=== PATIENT | male | born 1930 | race Caucasian/White ===

== ENCOUNTER → 2016-10-15 | Outpatient (CLI) | payer BC ==
[~2016-10-15] MED LIST: ACET-24 PO; CHOL2000 PO; CLX40 PO; FELO5TAB PO; OMEG10007 PO; ONDA8TAB6 PO; OXYSR10 PO; PRLSR20 PO; RXC5 PO; XRL10 PO
[2016-10-15 12:33] LABS: BASO % 0.2 %; BASO ABS # 0.01 K/uL (0-0.2); COMPLETE YES; EOS % 0.7 %; HEMATOCRIT 44.8 % (42-52); LYMPH % 33.4 %; LYMPH ABS # 1.91 K/uL (1.2-3.4); MEAN CELL VOLUME 89.4 fL (80-100); MEAN CORPUSCULAR HEMOGLOBIN 31.1 pg (25-34); MEAN CORPUSCULAR HGB CONC 34.8 g/dl (32-36); MEAN PLATELET VOLUME 9.8 fL (7.4-10.4); MONO % 10.1 %; NEUT % 55.6 %; PLATELET COUNT 237 K/uL (130-400); RED BLOOD COUNT 5.01 M/uL (4.7-6.1); WHITE BLOOD COUNT 5.72 K/uL (4.8-10.8)
[2016-10-15 12:52] LABS: ALT/SGPT 36 U/L (12-78); BLOOD UREA NITROGEN 14 mg/dl (7-18); BUN/CREATININE RATIO 10.9 (10-20); CALCIUM 8.9 mg/dl (8.5-10.1); CARBON DIOXIDE 29 mmol/L (21-32); CHLORIDE 102 mmol/L (98-107); CHOLESTEROL 216 mg/dl (0-200); GLUCOSE 123 mg/dl (70-99); POTASSIUM 4.6 mmol/L (3.5-5.1); SODIUM 139 mmol/L (136-145)
[2016-10-15 12:55] LABS: ALB/GLOB RATIO 1.1 (0.9-2); ALKALINE PHOSPHATASE 84 U/L (45-117); AST/SGOT 28 U/L (15-37); CHOLESTEROL/HDL RATIO 3.9; HDL CHOLESTEROL 56 mg/dl; LDL CHOLESTEROL CALCULATED 129 mg/dl; TRIGLYCERIDES 153 mg/dl (0-150); VERY LOW DENSITY LIPOPROT CALC 31 mg/dl
--- NOTE | 2016-10-19 12:24 | CODING QUERY MEDICAL NECESSITY ---
SUPPORTING DIAGNOSIS NEEDED A supporting diagnosis is required for the test/procedure performed on this patient in order for us to be reimbursed by the patient's insurance. Please provide a supporting diagnosis for the following test/procedure listed below next to the test name along with your signature. *If there is no additional diagnosis for this patient that would support the following test/procedure please document that below next to the test/procedure. Test(s)/Procedure(s) that require a supporting diagnosis: DOS 10/15 * Vitamin D DIAGNOSIS: Provider Signature: Date: Thank you Nayana Polo Health Information Management Once completed, please kindly fax back to [phone] For questions please call [phone]
== END | disposition home or self-care (01) ==
LOC: C.LABPVFM 08:24
PROVIDERS: ATTEND Family Medicine
DX: Z00.00 Encounter for general adult medical examination without abnormal findings (principal); I10 Essential (primary) hypertension; E55.9 Vitamin D deficiency, unspecified

== ENCOUNTER → 2017-03-25 | Outpatient (CLI) | payer BC | END | disposition home or self-care (01) | LOC: C.LABPVFM 17:41 | PROVIDERS: ATTEND Nurse Practitioner | DX: N39.0 Urinary tract infection, site not specified (principal) ==

== ENCOUNTER → 2017-04-06 | Outpatient (CLI) | payer BC | END | disposition home or self-care (01) | LOC: C.LABSPEC 17:06 | PROVIDERS: ATTEND Urology | DX: N39.0 Urinary tract infection, site not specified (principal) ==

== ENCOUNTER 2017-05-12 09:29 | Inpatient (IN) | payer BC, OTHER ==
[2017-04-20 15:02] VITALS: BMI 28.0
--- NOTE | 2017-04-20 15:31 | PAT Medication Instructions ---
Service Date Apr 20, 2017. Current Home Medication List Cholecalciferol (Vitamin D3), 1 CAP PO QAM Citalopram (Citalopram Hydrobromide), 40 MG PO QAM Felodipine (Plendil), 5 MG PO QAM Fish Oil ([place]-3), 2 CAP PO QAM Omeprazole (Prilosec), 20 MG PO QAM Medication Instructions For Your Scheduled Surgery - Hold the following medications 2 weeks prior to surgery: Fish Oil ([place]-3), 2 CAP PO QAM - Hold the following medications the morning of surgery: Cholecalciferol (Vitamin D3), 1 CAP PO QAM - Take the following medications the morning of surgery with a sip of water: Omeprazole (Prilosec), 20 MG PO QAM Citalopram (Citalopram Hydrobromide), 40 MG PO QAM Felodipine (Plendil), 5 MG PO QAM If you have any questions please call us at [phone] or [phone] or [phone]
--- NOTE | 2017-04-20 16:24 | DIAGNOSTIC IMAGING REPORT ---
CHEST PREADMISSION(PA/LAT) CLINICAL HISTORY: Preoperative chest COMPARISON STUDY: 02/28/2015 FINDINGS: There is stable elevation/eventration of the anterior aspect of the right hemidiaphragm. The heart is normal in size. There is no failure. There is no focal pulmonary consolidation. There are no pleural effusions.[ IMPRESSION: Stable elevation/eventration of the right hemidiaphragm. No acute findings. Electronically signed by: Davon Bowens M.D. 04/20/2017 4:23 PM Dictated Date/Time: 04/20/2017 4:22 PM
[2017-04-20 16:44] LABS: BLOOD UREA NITROGEN 16 mg/dl (7-18); BUN/CREATININE RATIO 11.6 (10-20); C-REACTIVE PROTEIN < 0.29 mg/dl (0-0.29); CALCIUM 8.7 mg/dl (8.5-10.1); CARBON DIOXIDE 27 mmol/L (21-32); CHLORIDE 105 mmol/L (98-107); GLUCOSE 130 mg/dl (70-99); POTASSIUM 4.2 mmol/L (3.5-5.1); SODIUM 140 mmol/L (136-145)
[2017-04-20 16:57] LABS: BASO % 0.3 %; BASO ABS # 0.01 K/uL (0-0.2); COMPLETE YES; EOS % 0.8 %; HEMATOCRIT 42.3 % (42-52); LYMPH % 34.2 %; LYMPH ABS # 1.31 K/uL (1.2-3.4); MEAN CELL VOLUME 89.8 fL (80-100); MEAN CORPUSCULAR HEMOGLOBIN 30.6 pg (25-34); MEAN PLATELET VOLUME 8.8 fL (7.4-10.4); MONO % 8.6 %; NEUT % 56.1 %; PLATELET COUNT 213 K/uL (130-400); RED BLOOD COUNT 4.71 M/uL (4.7-6.1); WHITE BLOOD COUNT 3.83 K/uL (4.8-10.8)
[2017-04-20 17:03] LABS: URINE APPEARANCE CLEAR (CLEAR); URINE BILIRUBIN NEG (NEG); URINE COLOR YELLOW; URINE NITRITE NEG (NEG); URINE SPECIFIC GRAVITY 1.011 (1.000-1.030); UROBILINOGEN NEG (NEG); ZZUR CULT IF INDIC CLEAN CATCH NO
[2017-04-20 17:04] LABS: MANUAL MICROSCOPIC REQUIRED? NO; REVIEW REQ? NO
[2017-04-20 17:05] LABS: PROTHROMBIN TIME (PATIENT) 10.3 SECONDS (9.0-12.0)
[2017-04-20 18:11] LABS: ESTIMATED AVERAGE GLUCOSE 137 mg/dl; HA1C FLAG Normal (Normal)
[2017-05-07 12:17] VITALS: BMI 28.0
--- NOTE | 2017-05-11 20:38 | HISTORY & PHYSICAL EXAMINATION ---
DATE OF ADMISSION: 05/12/2017 CHIEF COMPLAINT: Chronic left knee pain. HISTORY OF PRESENT ILLNESS: This is an 87-year-old male patient of Dr. Fuentes'darian complaining of chronic left knee pain status post a left total knee arthroplasty. The patient has failed conservative treatments and continues to have chronic knee pain. He has been diagnosed with loosening of the left knee components in the recent past and wishes to proceed with a left total knee arthroplasty revision. PAST MEDICAL HISTORY: Hypertension, osteoarthritis, neck problems, obesity and dental issues. SOCIAL HISTORY: Nonsmoker and nondrinker. PAST SURGICAL HISTORY: Left knee replacement, ankle surgery, gallbladder, appendix and hemorrhage. ALLERGIES: No known drug allergies. REVIEW OF SYSTEMS: The patient complains of chronic left knee pain. Otherwise denies any shortness of breath, chest pain, nausea, vomiting or any other joint complaints. FAMILY HISTORY: Noncontributory. MEDICATIONS: Include fish oil 1000 mg two tablets daily, vitamin D3 daily, omeprazole 20 mg daily, felodipine 5 mg daily and citalopram 40 mg daily. ALLERGIES: VANCOMYCIN. PHYSICAL EXAMINATION: GENERAL: Well-developed and well-nourished 87-year-old male, in no acute distress. He is alert and oriented x3 and pleasant. HEENT: Normocephalic and atraumatic. Extraocular motions are intact. Pupils are equal and reactive to light. HEART: Regular rate and rhythm, no murmurs appreciated. LUNGS: Clear. ABDOMEN: Soft and nontender, bowel sounds present. EXTREMITIES: Left knee reveals pain with passive range of motion. He is stable. He has 5/5 strength. NEUROLOGIC: Neurovascularly, he is intact in his left lower extremity. DIAGNOSES: Left knee chronic pain status post total knee arthroplasty with a diagnosis of loosening of total knee components. He also has a history of hypertension, osteoarthritis, neck problems, obesity and dental issues. PLAN: The patient was advised of his diagnoses. Indications, risks, benefits and postoperative course have all been reviewed. The patient wishes to proceed with a left total knee revision, removal and revision of all components. Necessary consent forms, preoperative testing and clearances will be obtained. CARISSA
[2017-05-12] VITALS (7 sets, daily range): BP systolic 105–151; BP diastolic 62–87; PULSE 81–95; TEMP 36.4–36.6; O2SAT 94–97; Ht 177.8 cm; Wt 89.5 kg
[~2017-05-12] VITALS: Ht 177.8 cm; Wt 89.5 kg
[2017-05-12] MEDS: TRANEXAMIC ACID INJ 1,000 MG in SODIUM CHLORIDE 0.9% 100ML 100 ML IV SCH ×2 (06:30→10:20)
[~2017-05-12 09:29] MED LIST changes: -ACET-24 PO; +ACETAMINOPHEN 500 MG TAB PO SCH; +ATROPINE SULFATE 0.1 MG/ML 5ML SYR IV PRN; +BUPIVACAINE 0.25% 30 ML VIAL ONE; +BUPIVACAINE 0.5 % 5 MG/1 ML PF 10ML VIAL ONE; +CEFAZOLIN 2000 MG/60 ML D5W 60 ML IV SCH; +CeleBREX 200 MG CAP PO SCH; +DEXAMETHASONE 4 MG TAB PO SCH; +EpHEDrine SULFATE INJ 50 MG/ML AMP IV PRN; +FAMOTIDINE 20 MG TAB PO SCH; +GABAPENTIN 300 MG CAP PO SCH; +LACTATED RINGER'S 1000ML 1,000 ML IV SCH; +LACTATED RINGER'S 1000ML 500 ML IV ONE; +LACTATED RINGER'S 1000ML IV SCH; +LACTATED RINGER'S 500 ML IV SCH; -ONDA8TAB6 PO; +ONDANSETRON INJ 2 MG/ML 2 ML VIAL IV PRN; +OXYCODONE HCL 10 MG TABCR (OXYCONTIN) PO SCH; -OXYSR10 PO; -RXC5 PO; +TRANEXAMIC ACID INJ 1,000 MG in SODIUM CHLORIDE 0.9% 100ML 100 ML IV SCH; -XRL10 PO
[2017-05-12] MEDS: CeleBREX 200 MG CAP PO SCH ×2 (10:15→10:37)
[2017-05-12] MEDS ORDERED: MIDAZOLAM HCL 1 MG/ML 2ML VIAL ONE (10:50)
[2017-05-12] MEDS ORDERED: FENTANYL CITRATE INJ 50 MCG/1 ML 2 ML VIAL ONE ×2 (10:50→18:51)
--- NOTE | 2017-05-12 12:02 | History & Physical Bridge Note ---
H&P Re-Evaluation Bridge Note: I have examined the patient, reviewed the History & Physical and in the interval since the performance of the History & Physical I have noted the following changes of clinical significance: No changes noted
[2017-05-12] MEDS ORDERED: BACITRACIN 50000 UNIT VIAL ONE ×2 (12:49→13:37)
[2017-05-12] MEDS ORDERED: POVIDONE-IODINE OP SOLN 30 ML BTL ONE (12:49)
--- NOTE | 2017-05-12 16:32 | [facility] Post Operative Brief Note ---
Immediate Operative Summary Operative Date May 12, 2017. Pre-Operative Diagnosis Left knee chronic pain status post total knee arthroplasty with diagnosis of recurrent fracture polyethylene tibial component and knee instability Post-Operative Diagnosis same Procedure(s) Performed revision total knee replacement all 3 components,synovectomy Surgeon Dr. Luis Fuentes Aerospace Manager Surgeon(s) WILD Moore Estimated Blood Loss 100cc Findings osteolysis around femoral and tibial component no loosening of any components chronic synovitis and no evidence of infection,polyethylene post fracture posterior stabilized knee Specimens Frozen section #2 sent at 1505 Left femoral bone implant / number WBC's per high powered field,explanted components,synovium. Drains 2 hemovac Anesthesia spinal sedation regional block Complication(s) None Disposition Recovery Room / PACU
[2017-05-12] MEDS ORDERED: TOBRAMYCIN SULF 1.2 GM VIAL (POWDER) ONE (16:52)
[2017-05-12] MEDS ORDERED: LIDOCAINE HCL 2% 2 ML VIAL (20MG/ML) ONE (18:38)
[2017-05-12] MEDS ORDERED: CEFAZOLIN SOD 1 GM VIAL ONE (18:38)
[2017-05-12] MEDS ORDERED: PROPOFOL IV EMULSION 10 MG/ML 20 ML VIAL IV ONE (18:38)
[2017-05-12] MEDS ORDERED: BISACODYL 10 MG SUPP PR PRN (18:45)
[2017-05-12] MEDS ORDERED: MAGNESIUM HYDROXIDE SUSP 30 ML UDC PO PRN (18:45)
[2017-05-12] MEDS ORDERED: TRAMADOL HCL 50 MG TAB PO PRN (18:45)
[2017-05-12] MEDS ORDERED: SOD PHOSPHATE/SOD BIPHOSPHATE ENEMA 132 ML BTL PR PRN (18:45)
[2017-05-12] MEDS ORDERED: ZOLPIDEM TARTRATE 5 MG TAB PO PRN (18:45)
[2017-05-12] MEDS ORDERED: MoRPHine SULFATE 2 MG/ML CARP IV PRN (18:45)
[2017-05-12] MEDS ORDERED: ONDANSETRON INJ 2 MG/ML 2 ML VIAL IV PRN ×2 (18:45→19:00)
[2017-05-12] MEDS ORDERED: FENTANYL CITRATE INJ 50 MCG/1 ML 2 ML VIAL IV PRN (19:00)
[2017-05-12] MEDS ORDERED: HYDROmorphone INJ 1 MG/ML SYR IV PRN (19:00)
[2017-05-12] MEDS ORDERED: EpHEDrine SULFATE INJ 50 MG/ML AMP IV PRN (19:00)
[2017-05-12] MEDS ORDERED: ATROPINE SULFATE 0.1 MG/ML 5ML SYR IV PRN (19:00)
--- NOTE | 2017-05-12 19:26 | Anesthesiology Progress Note ---
Anesthesia Post Op Note Date & Time May 12, 2017 at 19:26 Vital Signs Pain Intensity: 4 Vital Signs Past 12 Hours Date Time Temp Pulse Resp B/P (MAP) Pulse Ox O2 Delivery O2 Flow Rate FiO2 05/12/17 19:15 93 14 137/90 95 Nasal Cannula 2 05/12/17 19:05 89 15 135/80 95 Nasal Cannula 2 05/12/17 18:55 92 19 128/92 97 Oxymask 4 05/12/17 18:45 91 19 137/88 98 Oxymask 8 05/12/17 18:39 36.7 94 16 114/88 98 Oxymask 10 05/12/17 09:59 36.5 81 20 151/87 96 Room Air Notes Mental Status: alert / awake / arousable, participated in evaluation Pt Amnestic to Procedure: Yes Nausea / Vomiting: adequately controlled Pain: adequately controlled Airway Patency, RR, SpO2: stable & adequate BP & HR: stable & adequate Hydration State: stable & adequate Neuraxial Anesthesia: was administered, sensory block is resolving Anesthetic Complications: no major complications apparent
--- NOTE | 2017-05-12 19:35 | DIAGNOSTIC IMAGING REPORT ---
LEFT KNEE 1 OR 2 VIEWS ROUTINE CLINICAL HISTORY: AP/LATERAL IN PACU LEFT KNEE postoperative evaluation COMPARISON: None. DISCUSSION: Total left knee arthroplasty. Longstem prosthetics are utilized. Multiple soft tissue antibiotic these are present. Postoperative surgical drains are in position. IMPRESSION: Postoperative changes as noted. Anatomic alignment. The above report was generated using voice recognition software. It may contain grammatical, syntax or spelling errors. Electronically signed by: Mansoor Díaz M.D. 05/12/2017 7:34 PM Dictated Date/Time: 05/12/2017 7:33 PM
[2017-05-12] MEDS ORDERED: MoRPHine SULFATE 4 MG/ML 1 ML CARP\\VIAL IV PRN (20:15)
[2017-05-12] MEDS: OXYCODONE HCL IR 5 MG TAB (IMMEDIATE RELEASE) PO PRN ×2 (20:17→23:57)
[2017-05-12] MEDS: D5W AND 1/2NSS + 20MEQ KCL 1,000 ML IV SCH (20:19)
[2017-05-12] MEDS: OXYCODONE HCL 10 MG TABCR (OXYCONTIN) PO SCH (22:02)
[2017-05-12] MEDS: DOCUSATE SODIUM 100 MG CAP PO SCH (22:02)
[2017-05-12] MEDS: ACETAMINOPHEN 500 MG TAB PO SCH (23:54)
[2017-05-13] VITALS (7 sets, daily range): BP systolic 112–154; BP diastolic 67–84; PULSE 80–94; TEMP 36.3–36.8; O2SAT 91–96
[2017-05-13] MEDS: CEFAZOLIN IV 2,000 MG in DEXTROSE 5% 50ML 50 ML IV SCH ×2 (01:33→10:29)
--- NOTE | 2017-05-13 02:06 | OPERATIVE REPORT ---
DATE OF OPERATION: 05/12/2017 INDICATION FOR PROCEDURE: The patient is an 87-year-old male, well known to my practice. I did bilateral Encore knee replacements many years ago. He has had problems with polyethylene fractures, fracturing the polyethylene posts of both of his knees. He had revision of polyethylene on the right knee once and the left knee twice. The left polyethylene revision to the fractured polyethylene component was only 2 years status post the left component. His workup demonstrates no loosening of any of his components. There are no signs of infection. His CBC, sed rate, CRP are all normal. He has instability of his knee with posterior drawer. This is with a fractured polyethylene post again. He does have some synovitis, likely due to osteolysis. There is no loosening of any of the components, notably. The patient now has instability of his knee and some pain in his knee. He had major mechanical symptoms, which have settled down at this time. The patient is considering his options of no treatment versus revision knee replacement and wanted to pursue the revision knee replacement at this time, out of fear, in part, that he may put undue stress on his opposite knee and cause failure there or have recurrent pain and mechanical symptoms in his left knee. 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 Chronic knee synovitis, aseptic. PROCEDURE: Left revision total knee arthroplasty with revision of all three components, patella, tibia and femoral with synovectomy and debridement. SURGEON: Dr. Fuentes. CARRY OUT CLERK AND SHELF STOCKER: WILD Moore. ANESTHESIA: Spinal sedation and regional block. OPERATIVE PROCEDURE: The patient was taken to the operating room and anesthetized under regional block, spinal anesthetic sedation. Pneumatic tourniquet was placed on left upper thigh, his left lower extremity was prepped and draped with ChloraPrep in the usual sterile fashion. Exam demonstrated he had an unstable knee with posterior drawer with a sag sign, subluxation of the tibia and femur, no end-points consistent with a fractured polyethylene post, also medial and lateral instability due to lack of polyethylene post. After the left lower extremity was prepped and draped, it was elevated, exsanguinated with Esmarch bandage, pneumatic tourniquet was raised to 300 mmHg. Anterior incision was made across the left knee. There was old scar. Skin was incised sharply. Subcutaneous flaps were elevated. Incision was made through the medial retinaculum, extended up in the mid-third of the quadriceps tendon. We got cultures at that time. The incision was carried down to the medial tibial tubercle. Intraarticular findings demonstrated chronic synovitis, polyethylene plastic debris noted, the polyethylene post was fractured and fragmented, there was some polyethylene wear of the tibial component. There was no loosening of the femoral or the tibial components. There were some areas of surrounding osteolysis identified around the edges of the implants. First, I went ahead and did a total electrocautery synovectomy. We excised the synovium in the gutters and suprapatellar pouch. Then, I excised the scarred infrapatellar fat pad. I did some releases around the proximal tibial plateau to expose the tibial component better. Then we went ahead and used a screwdriver to unscrew the screw and the polyethylene with a hex head screwdriver. Then, we went ahead and removed the polyethylene with a curved osteotome. We did some more debridement of the synovium in the posterior capsule area. Then, first attention was taken to testing the other components for stability, they were all stable. At this time, to the well-fixed components to remove them, I had to use Ultra-Drive ultrasound. I did this using that to melt the cement. We used a flat blade. We worked around the components, superior flange, lateral posterior condyle area, both sides of the knee, until we were able to tap the femoral component loose. Once it was loose, we did take some frozen sections from the femur implant interface. These all came back with no significant information. We did notice that there were some bits of osteolysis underlying the femoral component with the various cystic areas. Most of bone loss was in the flexion surface of the medial femoral condyle, but there were various areas of osteolytic cysts under the femur. These were all debrided out. All the excess old cement was removed. Then, attention was taken to removing the tibial component. The tibia was extremely well fixed. It was difficult to remove. We used the Ultra-Drive to melt the cement of the component thoroughly , but the component was not easily removed. We did end up using the total joint extraction device. We had to use first some stacked osteotomes to loosen up the tibia prior to being able to remove it more effectively with the Ariella total joint extraction device. Eventually, that was all removed and then we used cement removal tools to remove the cement from the metaphysis of the tibia. Then, attention was taken to preparation of the femur. For revision, I used the [employer] Legion revision total knee arthroplasty system. First, we reamed femur and tibia. The femur was reamed up to a 16 and the tibia to a 13 diameter, which had good fit and fill. Then we assessed the femur and felt it was best sized to be a 6 femur component. I felt a 4 offset gave the best alignment. First, we did a cleanup cut of the femur distally and there was not any significant bone loss there. So, we did not feel there was any augments necessary there. After deciding the position of the 6 component with the +4 offset at the 6 o'clock position, which gave the best coverage, we went ahead and reamed for the femoral component with appropriate reamers and then placed our trial together and used a 10 mm offset on the medial side, but the lateral side, there was no significant posterior bone loss and that would be the primary component without offset on the lateral side. At this point, the tourniquet time was extending over 2 hours. So, we went ahead and placed a trial plastic component over the tibia, kept the femoral trial in place, extended the knee, packed the knee with sponges and let the tourniquet down for 15-20 minutes to let leg revascularize. During that time, we went ahead and cauterized some bleeders that we identified. After appropriate time down for revascularization, the leg was once again exsanguinated with Esmarch bandage. Pneumatic tourniquet was raised back to 300 mmHg. Then, attention was taken to the tibia. Then, we used the intramedullary tibial guide to make the proximal tibial cut perpendicular to the long axis of the tibia and then sized the tibia for a 6 tibial component. We used a +2 offset on the tibial side and drilled the appropriate proximal tibia to fashion for the final tibial component. When the trial was in position, we did use the punch for the stem fins and pinned the trial in position. We lined up the tibial trial in line with the tibial tubercle. At this time, we did a trial reduction and I felt that the size 15 constrained insert gave the best ligamentous balance through full range of motion. We did go ahead and revise the patella, first using an oscillating saw to remove the previous polyethylene component, tried to do as [id number] of bone resection as possible to preserve the patella bone. Then, the patella was sized for a 38 component. We drilled the holes for the 38 and curetted out the old plastic pegs and old cement. Then, we did a trial reduction and the knee was taken through a range of motion, the patella tracked centrally. At this time, the trial components were all removed. The knee was then copiously irrigated with pulsatile lavage, antibiotic solution and bacitracin. The final components were assembled. The femoral component was a 16 x 160 mm stem, assembled to a 4 offset at 6 o'clock position, 6 Oxinium posterior stabilized Legion femoral component with a posterior offset on the medial side of 10 mm. Final component on the tibia was the 6 tibial component with a 15 mm x 160 mm stem with 2+ offset at 12:30 position. The tibia was cemented in first with the stem press fit and the metaphysis and baseplate cemented. A similar cementing of the femoral component was performed secondarily and the patella was cemented in a similar fashion. We used Palacos G cement. We placed the trial in place first, put the knee in full extension until the cement hardened and then went ahead with the final tibial 15 mm constrained component, which was impacted into position. The knee was reduced, we assessed range of motion, which was satisfactory. The patella tracked centrally. The stability was good. The patient had full range of motion. The Betadine soak was then used. Then we irrigated out the joint copiously. We placed 2 drains out laterally. These were connected to a Hemovac. We had previously made tobramycin antibiotic beads and placed them into the joint. Then, we closed the fascia of the quadriceps tendon and medial retinaculum with interrupted [id number] #1 Vicryl sutures. The knee was taken through full range of motion and appeared secure. Then, the subcutaneous tissues had more antibiotic beads placed prior to closing them with interrupted 2-0 Vicryl sutures and the skin was closed with raudel and sterile dressings were applied. The tourniquet was again let down. The patient had normal internal circulation. The patient had approximately 100 mL of blood loss during the procedure and the patient tolerated the procedure well. WILD Moore, was my assistant professor of geography and he functioned as assistant professor of geography with leg positioning, soft tissue retraction, instrument management and assisted in the closure and will participate in the postoperative care of the patient. I attest to the content of the Intraoperative Record and any orders documented therein. Any exceptions are noted below. CARISSA
[2017-05-13] MEDS: D5W AND 1/2NSS + 20MEQ KCL 1,000 ML IV SCH ×2 (05:51→16:08)
[2017-05-13 06:18] LABS: HEMATOCRIT 36.6 % (42-52); MEAN CELL VOLUME 90.8 fL (80-100); MEAN CORPUSCULAR HEMOGLOBIN 31.3 pg (25-34); MEAN CORPUSCULAR HGB CONC 34.4 g/dl (32-36); MEAN PLATELET VOLUME 8.7 fL (7.4-10.4); PLATELET COUNT 184 K/uL (130-400); RED BLOOD COUNT 4.03 M/uL (4.7-6.1); WHITE BLOOD COUNT 10.81 K/uL (4.8-10.8)
[2017-05-13 06:49] LABS: BUN/CREATININE RATIO 13.2 (10-20); CALCIUM 8.4 mg/dl (8.5-10.1); CREATININE 1.6 mg/dl (0.60-1.40); POTASSIUM 4.8 mmol/L (3.5-5.1)
[2017-05-13] MEDS: ACETAMINOPHEN 500 MG TAB PO SCH ×3 (08:13→23:08)
--- NOTE | 2017-05-13 08:19 | Orthopedic Progress Note ---
Orthopedic Progress Note Date of Service May 13, 2017. Subjective Post OP Day: 1 Reports: feeling well, pain controlled w PO medications, Denies: complaints, chest pain, SOB, nausea / vomiting, light headedness, calf pain Additional Notes: Intra op gram stain: few WBC's, NO organisms Culture pending Objective calves soft nontender, N/V intact, capillary refill less than 2 sec., dressing C /D/I, A&O x3, toes mobile Date Time Temp Pulse Resp B/P (MAP) Pulse Ox O2 Delivery O2 Flow Rate FiO2 05/13/17 08:14 36.5 80 20 122/84 (97) 96 Room Air 05/13/17 03:23 36.3 84 16 119/78 (92) 92 Nasal Cannula 2.0 05/13/17 00:00 Nasal Cannula 2.0 05/12/17 22:42 36.4 88 18 105/62 (76) 94 Nasal Cannula 2.0 05/12/17 21:50 36.5 91 17 114/71 (85) 96 Nasal Cannula 2.0 05/12/17 20:42 36.6 93 18 124/79 (94) 96 Nasal Cannula 2.0 05/12/17 20:32 97 Nasal Cannula 2.0 05/12/17 20:23 36.5 88 16 124/84 (97) 97 Nasal Cannula 2.0 05/12/17 20:05 2.0 05/12/17 19:45 36.5 95 16 119/64 (82) 95 Nasal Cannula 2.0 05/12/17 19:35 90 14 116/77 94 Nasal Cannula 2 05/12/17 19:25 36.6 89 16 114/79 95 Nasal Cannula 2 05/12/17 19:15 93 14 137/90 95 Nasal Cannula 2 05/12/17 19:05 89 15 135/80 95 Nasal Cannula 2 05/12/17 18:55 92 19 128/92 97 Oxymask 4 05/12/17 18:45 91 19 137/88 98 Oxymask 8 05/12/17 18:39 36.7 94 16 114/88 98 Oxymask 10 05/12/17 09:59 36.5 81 20 151/87 96 Room Air Laboratory Results 24 Hours: Test 05/13/17 06:07 Hematocrit 36.6 % Hemoglobin 12.6 g/dL Assessment & Plan Assessment: POD #1, Left TKA revision all components, synovectomy and debridement Plan: PT/ OT DVT proph- Xarelto D/C plans- HOme As per medicine Inhouse Planning Pain Management: Oxycontin, Ultram, Morphine, PO Tylenol, Oxy IR DVT Prophylaxis: TEDs, SCDs, Xarelto Discharge Planning Discharge Planning: home with oppt Pain Management: Oxycontin, PO Tylenol, Oxy IR DVT Prophylaxis: TEDs Xarelto Therapy: Physical Therapy, Occupational Therapy
--- NOTE | 2017-05-13 08:31 | Anesthesiology Progress Note ---
Anesthesia Post Op Note Date & Time May 13, 2017 at 08:30 Vital Signs Pain Intensity: 2 Vital Signs Past 12 Hours Date Time Temp Pulse Resp B/P (MAP) Pulse Ox O2 Delivery O2 Flow Rate FiO2 05/13/17 08:14 36.5 80 20 122/84 (97) 96 Room Air 05/13/17 03:23 36.3 84 16 119/78 (92) 92 Nasal Cannula 2.0 05/13/17 00:00 Nasal Cannula 2.0 05/12/17 22:42 36.4 88 18 105/62 (76) 94 Nasal Cannula 2.0 05/12/17 21:50 36.5 91 17 114/71 (85) 96 Nasal Cannula 2.0 05/12/17 20:42 36.6 93 18 124/79 (94) 96 Nasal Cannula 2.0 05/12/17 20:32 97 Nasal Cannula 2.0 Notes Mental Status: alert / awake / arousable Pt Amnestic to Procedure: Yes Nausea / Vomiting: adequately controlled Pain: adequately controlled Airway Patency, RR, SpO2: stable & adequate BP & HR: stable & adequate Hydration State: stable & adequate Neuraxial Anesthesia: sensory block resolved has not voided
[2017-05-13] MEDS: CITALOPRAM 40 MG TAB PO SCH (09:14)
[2017-05-13] MEDS: DOCUSATE SODIUM 100 MG CAP PO SCH ×2 (09:14→20:49)
[2017-05-13] MEDS: FELODIPINE 5 MG TABCR PO SCH (09:15)
[2017-05-13] MEDS: MULTIVITAMIN TAB PO SCH (09:15)
[2017-05-13] MEDS: CHOLECALCIFEROL 1000 INTER.UNIT TAB PO SCH (09:15)
[2017-05-13] MEDS: PANTOprazole SOD 40 MG TAB PO SCH (09:15)
[2017-05-13] MEDS: OXYCODONE HCL 10 MG TABCR (OXYCONTIN) PO SCH ×2 (09:17→20:50)
--- NOTE | 2017-05-13 11:00 | Medical Consult ---
Consultation Date of Consultation: May 13, 2017. Attending Physician: Luis Fuentes M.D. Reason for Consultation: Medical management History of Present Illness Patient is an 87 y/o male, with PMHx of osteoarthritis, HTN, anxiety, and GERD, s/p L TKA revision all components, synovectomy and debridement on 05/[address] Fuentes. Patient is feeling well postop. Pain is well controlled. Worked with PT this AM, without significant difficulty. +flatus, no BM postop- last BM . Eating and drinking OK. Patient denies any fever, chills, sweats, lightheadedness, dizziness, vision changes, CP, palpitations, edema, SOB, wheezing, cough, abdominal pain, nausea, vomiting, diarrhea, urinary symptoms, melena, numbness/tingling, weakness, anxiety/depression, active bleeding, or new skin discoloration/changes. Past Medical/Surgical History PAST MEDICAL HISTORY: Hypertension osteoarthritis neck problems obesity dental issues GERD anxiety PAST SURGICAL HISTORY: Left knee replacement ankle surgery cholecystectomy appendectomy PUD hemorrhage Social History Smoking Status: Never Smoker Alcohol Use: none Marital Status: Housing Status: lives with significant other Occupation Status: retired Allergies Coded Allergies: Vancomycin (Verified Allergy, Intermediate, LOWER EXTREMITY SWELLING, FEVER, 05/12/17) Home Medications Reported Home Medications Medications Dose Route/Sig Max Daily Dose Days Date Category [place]-3 (Fish Oil) 1 Ea Cap 2 Cap PO QAM 04/20/17 Reported Vitamin D3 (Cholecalciferol) 2,000 Unit Cap 1 Cap PO QAM 90 04/20/17 Reported Citalopram Hydrobromide (Citalopram) 40 Mg Tab 40 Mg PO QAM 01/05/14 Reported Plendil (Felodipine) 5 Mg Tabcr 5 Mg PO QAM 09/02/10 Reported Prilosec (Omeprazole) 20 Mg Capcr 20 Mg PO QAM 12/31/08 Reported Current Inpatient Medications Current Inpatient Medications Medications (Trade) Dose Ordered Sig/Purnima Route Start Time Stop Time Status Last Admin Dose Admin Citalopram Hydrobromide (celeXA TAB) 40 mg QAM PO 05/13/17 09:00 06/12/17 08:59 Felodipine (Plendil Tabcr) 5 mg QAM PO 05/13/17 09:00 06/12/17 08:59 Cholecalciferol (Vitamin D Tab) 2,000 inter.unit QAM PO 05/13/17 09:00 06/12/17 08:59 Potassium Chloride/Dextrose/ Sod Cl 1,000 ml @ 100 mls/hr Q10H IV 05/12/17 20:15 05/13/17 20:14 05/13/17 05:51 100 MLS/HR Cefazolin Sodium 2000 mg/Dextrose 60 ml @ 100 mls/hr Q8H IV 05/13/17 02:00 05/13/17 10:35 05/13/17 01:33 100 MLS/HR Oxycodone HCl (Roxicodone Immediate Rel Tab) 1 TABLET FOR PAIN RATING... Q4H PRN PO 05/12/17 18:45 05/26/17 18:44 05/12/17 23:57 10 MG Oxycodone HCl (Oxycontin Tab) 10 mg Q12 PO 05/12/17 21:00 05/26/17 20:59 05/12/17 22:02 10 MG Morphine Sulfate (MoRPHine SULFATE INJ) 2 mg Q2H PRN IV 05/12/17 18:45 05/26/17 18:44 Acetaminophen (Tylenol Tab) 1,000 mg Q8H PO 05/13/17 00:00 06/12/17 00:00 05/13/17 08:13 1,000 MG Magnesium Hydroxide (Milk Of Magnesia Susp) 30 ml Q6H PRN PO 05/12/17 18:45 06/11/17 18:44 Bisacodyl (Dulcolax Supp) 10 mg DAILY PRN VT 05/12/17 18:45 06/11/17 18:44 Sodium Biphosphate/ Sodium Phosphate (Fleet Enema) 132 ml DAILY PRN VT 05/12/17 18:45 06/11/17 18:44 Docusate Sodium (coLACE CAP) 100 mg BID PO 05/12/17 21:00 06/11/17 20:59 05/12/17 22:02 100 MG Diphenhydramine HCl (Benadryl Cap) 25 mg Q8H PRN PO 05/12/17 18:45 06/11/17 18:44 Zolpidem Tartrate (Ambien Tab) 5 mg HSZ PRN PO 05/12/17 18:45 06/11/17 18:44 Multivitamins (Multivitamin Tab) 1 tab QAM PO 05/13/17 09:00 06/12/17 08:59 Ondansetron HCl (Zofran Inj) 4 mg Q6H PRN IV 05/12/17 18:45 06/11/17 18:44 Pantoprazole Sodium (Protonix Tab) 40 mg QAM PO 05/13/17 09:00 06/12/17 08:59 Tramadol HCl (Ultram Tab) 1 tablet for pain rating... Q4H PRN PO 05/12/17 18:45 06/11/17 18:44 Rivaroxaban (Xarelto Tab) 10 mg Q24H PO 05/13/17 17:00 05/25/17 16:59 Morphine Sulfate (MoRPHine SULFATE INJ) 4 mg Q2H PRN IV 05/12/17 20:15 05/26/17 20:14 Physical Exam Date Time Temp Pulse Resp B/P (MAP) Pulse Ox O2 Delivery O2 Flow Rate FiO2 05/13/17 08:14 36.5 80 20 122/84 (97) 96 Room Air 05/13/17 03:23 36.3 84 16 119/78 (92) 92 Nasal Cannula 2.0 05/13/17 00:00 Nasal Cannula 2.0 05/12/17 22:42 36.4 88 18 105/62 (76) 94 Nasal Cannula 2.0 05/12/17 21:50 36.5 91 17 114/71 (85) 96 Nasal Cannula 2.0 05/12/17 20:42 36.6 93 18 124/79 (94) 96 Nasal Cannula 2.0 05/12/17 20:32 97 Nasal Cannula 2.0 05/12/17 20:23 36.5 88 16 124/84 (97) 97 Nasal Cannula 2.0 05/12/17 20:05 2.0 05/12/17 19:45 36.5 95 16 119/64 (82) 95 Nasal Cannula 2.0 05/12/17 19:35 90 14 116/77 94 Nasal Cannula 2 05/12/17 19:25 36.6 89 16 114/79 95 Nasal Cannula 2 05/12/17 19:15 93 14 137/90 95 Nasal Cannula 2 05/12/17 19:05 89 15 135/80 95 Nasal Cannula 2 05/12/17 18:55 92 19 128/92 97 Oxymask 4 05/12/17 18:45 91 19 137/88 98 Oxymask 8 05/12/17 18:39 36.7 94 16 114/88 98 Oxymask 10 05/12/17 09:59 36.5 81 20 151/87 96 Room Air General Appearance: no apparent distress Head: normocephalic, atraumatic Eyes: normal inspection, PERRL ENT: hearing grossly normal Neck: supple Respiratory/Chest: lungs clear, no respiratory distress, no accessory muscle use Cardiovascular: regular rate, rhythm Abdomen/GI: normal bowel sounds, non tender, soft Back: normal inspection Extremities/Musculoskelatal: no calf tenderness, no pedal edema Neurologic/Psych: alert, normal mood/affect, oriented x 3 Skin: normal color, warm/dry, no rash Laboratory Results Last 24 Hours Test 05/13/17 06:07 White Blood Count 10.81 K/uL Red Blood Count 4.03 M/uL Hemoglobin 12.6 g/dL Hematocrit 36.6 % Mean Corpuscular Volume 90.8 fL Mean Corpuscular Hemoglobin 31.3 pg Mean Corpuscular Hemoglobin Concent 34.4 g/dl RDW Standard Deviation 43.1 fL RDW Coefficient of Variation 13.0 % Platelet Count 184 K/uL Mean Platelet Volume 8.7 fL Sodium Level 135 mmol/L Potassium Level 4.8 mmol/L Chloride Level 103 mmol/L Carbon Dioxide Level 26 mmol/L Anion Gap 6.0 mmol/L Blood Urea Nitrogen 21 mg/dl Creatinine 1.60 mg/dl Est Creatinine Clear Calc Drug Dose 38.0 ml/min Estimated GFR () 44.9 Estimated GFR (Non- 38.7 BUN/Creatinine Ratio 13.2 Random Glucose 174 mg/dl Calcium Level 8.4 mg/dl Assessment & Plan Patient is an 87 y/o male, with PMHx of osteoarthritis, HTN, and GERD, s/p L TKA revision all components, synovectomy and debridement on 05/[address] Fuentes. s/p L TKA revision all components, synovectomy and debridement on 05/[address] Fuentes: - Surgical management, pain management, PT/OT, and DVT prophylaxis as per primary team -- Pain management- Tylenol 100 mg q8 hrs, Oxycodone 10 mg BID, Roxicodone 1 tab q4 hrs, Morphine IV 4 mg or 2 mg q2 hrs, Tramadol 1 tab q4 hrs PRN -- Bowel regimen- Dulcolax, Milk of Mag, fleet enema PRN - Encourage incentive spirometer - Follow routine CBC and PRP postop -- Follow kidney function tomorrow AM, if continues to rise will gently hydrate- encouraged good fluid intake HTN- STABLE: Feldopine 5 mg daily Anxiety: Celexa 40 mg daily GERD/GI Prophylaxis: Protonix 40 mg daily- resume Prilosec 20 mg daily at discharge DVT Prophylaxis: Xarelto 10 mg daily x12 days per surgical team Code Status: LEVEL I, FULL Dispo: As per primary team Thank you for this consultation. We will continue to follow throughout hospital stay. Attending Consult Note & Attestation: Pt seen/examined, chart reviewed, care plan d/w WILD Peraza. I agree with the haynes components of her consult documentation. 87yo male, POD #1 from extensive left TKR revision. He denied any complaints during my visit; specifically no dyspnea, chest pain, or abd pain. Overall "feeling good"; anticipates d/c tomorrow. PMH, PSH, allergies, meds, sochx, famhx, ros - reviewed exam - VSS no fever o2 sats nl gen - nad mouth - MMM neck - no JVD heart - RRR, s1, s2 lungs - CTA b/l abd - soft, NT ext - edema left leg with large SELENE wrap in place, no edema right leg, pulses 2 + b/l A/P: 1. POD #1 s/p left TKR revision - DVT proph, pain control, dispo - per ortho 2. HTN - cont home meds 3. mild acute blood loss anemia - follow 4. CKD stage 3 with minimal acute kidney injury - repeat BMP in am Fredy Hensley MD
[2017-05-13] MEDS ORDERED: RIVAROXABAN 10 MG TAB PO SCH (17:00)
[2017-05-14 06:00] VITALS: BP 133/79; PULSE 92; TEMP 36.4; O2SAT 91
[2017-05-14 06:03] LABS: HEMATOCRIT 33.3 % (42-52); MEAN CELL VOLUME 90.7 fL (80-100); MEAN CORPUSCULAR HEMOGLOBIN 31.1 pg (25-34); MEAN CORPUSCULAR HGB CONC 34.2 g/dl (32-36); PLATELET COUNT 160 K/uL (130-400); RED BLOOD COUNT 3.67 M/uL (4.7-6.1); WHITE BLOOD COUNT 5.96 K/uL (4.8-10.8)
[2017-05-14 06:42] LABS: BUN/CREATININE RATIO 14.7 (10-20); CALCIUM 8.9 mg/dl (8.5-10.1); CREATININE 1.6 mg/dl (0.60-1.40); POTASSIUM 4.5 mmol/L (3.5-5.1)
[2017-05-14] MEDS: PANTOprazole SOD 40 MG TAB PO SCH (07:49)
[2017-05-14] MEDS: OXYCODONE HCL 10 MG TABCR (OXYCONTIN) PO SCH (07:49)
[2017-05-14] MEDS: DOCUSATE SODIUM 100 MG CAP PO SCH (07:49)
[2017-05-14] MEDS: MULTIVITAMIN TAB PO SCH (07:49)
[2017-05-14] MEDS: FELODIPINE 5 MG TABCR PO SCH (07:49)
[2017-05-14] MEDS: CHOLECALCIFEROL 1000 INTER.UNIT TAB PO SCH (07:50)
[2017-05-14] MEDS: CITALOPRAM 40 MG TAB PO SCH (07:50)
[2017-05-14] MEDS: ACETAMINOPHEN 500 MG TAB PO SCH (07:50)
--- NOTE | 2017-05-14 08:00 | Orthopedic Progress Note ---
Orthopedic Progress Note Date of Service May 14, 2017. Subjective Post OP Day: 2 Reports: feeling well, pain controlled w PO medications, Denies: complaints, chest pain, SOB, nausea / vomiting, light headedness, calf pain Objective calves soft nontender, N/V intact, capillary refill less than 2 sec., incision C /D/I, A&O x3, toes mobile Date Time Temp Pulse Resp B/P (MAP) Pulse Ox O2 Delivery O2 Flow Rate FiO2 05/14/17 06:00 36.4 92 18 133/79 (97) 91 Room Air 05/13/17 23:04 36.6 93 18 138/69 (92) 91 Room Air 05/13/17 23:00 Room Air 05/13/17 16:00 Room Air 05/13/17 15:20 36.4 83 16 112/67 (82) 92 Room Air 05/13/17 11:48 36.8 80 20 124/76 (92) 96 Room Air 05/13/17 09:50 94 94 05/13/17 08:14 36.5 80 20 122/84 (97) 96 Room Air Laboratory Results 24 Hours: Test 05/14/17 05:44 Hematocrit 33.3 % Hemoglobin 11.4 g/dL Assessment & Plan Assessment: POD #2, Left TKA revision all components, synovectomy and debridement Plan: PT/ OT DVT proph- Xarelto D/C plans- HOme TODAY As per medicine Inhouse Planning Pain Management: Oxycontin, Ultram, Morphine, PO Tylenol, Oxy IR DVT Prophylaxis: TEDs, SCDs, Xarelto Discharge Planning Discharge Planning: home with oppt Pain Management: Oxycontin, PO Tylenol, Oxy IR DVT Prophylaxis: TEDs, Xarelto Therapy: Physical Therapy, Occupational Therapy
[2017-05-14] MEDS ORDERED: XRL10 PO (08:03)
[2017-05-14] MEDS ORDERED: RXC5 PO (08:03)
[2017-05-14] MEDS ORDERED: ONDA8TAB6 PO (08:03)
[2017-05-14] MEDS ORDERED: OXYSR10 PO (08:03)
[2017-05-14] MEDS ORDERED: ACET-24 PO (08:03)
--- NOTE | 2017-05-14 08:04 | Discharge Instructions ---
Discharge Instructions Date of Service May 14, 2017. Admission Reason for Admission: Failed Left Total Knee Arthroplasty Discharge Discharge Diagnosis / Problem: LEFT tka REVISION 3 COMPONENTS, ASEPTIC. Discharge Goals Goal(s): Improve function Activity Recommendations Activity Limitations: as noted below . Instructions / Follow-Up Instructions / Follow-Up ACTIVITY RECOMMENDATIONS: SELF CARE INSTRUCTIONS AFTER TOTAL KNEE REPLACEMENT A. You may need to continue a physical therapy program after discharge from the hospital. There are several options available to you. Your doctor will assist you in selecting the best one for you. 1. An out-patient facility 2 to 3 times a week for therapy or home therapy. 2. Continue working on all exercises taught to you in the hospital. Your goals should be to increase bending of your knee to 90 degrees and beyond and to fully straighten your knee. B. You may progress at your own pace from walking with a walker or crutches to a cane; then to no assistive devices. C. Make walking a part of your daily routine. Be up as much as comfortable with rest periods throughout the day. Rest with leg elevation is very important. Use the ice wrap frequently for the first 3-4 weeks. D. There are no restrictions on activities. You may ride in a car, shop, participate in tieing machine operator and all social activities. E. Wear the long elastic stockings (DAVE hose) 20 hours a day for 2 weeks after surgery. They can be removed several times a day for laundering and for a bath. F. You may shower, no tub baths until cleared by your doctor. SPECIAL CARE INSTRUCTIONS: VERY IMPORTANT TO READ AND REVIEW A. There are a few signs you need to watch for after you are home. Call [facility] if you notice any of the followin. Increased severe knee pain. Some pain is expected especially when you exercise. 2. Increased swelling in your leg or knee; pain or swelling of the calf muscle in either lower leg. 3. Any fluid drainage from the incision. 4. Shortness of breath or chest pain. B. Please call [facility] at if you have any concerns or questions about your operation or recovery. The doctor or his nurse will return your call promptly. C. You must take antibiotics before dental work, bladder, bowel or other surgery. Your doctor will provide you with a permanent care to carry describing this precaution. IMPORTANT: * REMEMBER TO TAKE ASPIRIN, 81 MG, TWICE DAILY FOR 4 WEEKS UNLESS OTHERWISE DIRECTED. THIS IS YOUR BLOOD THINNER. * HIGH RISK PATIENTS MAY BE PRESCRIBED A STRONGER BLOOD THINNER. THIS WILL BE PROVIDED AT DISCHARGE. * CALL IF INCREASED PAIN, REDNESS, DRAINAGE OR FEVER GREATER THAT 101. * WEAR DAVE HOSE 20 HOURS PER DAY FOR 2 WEEKS. * YOU MAY HAVE A LARGE BAND-AID LIKE DRESSING (SILVERON). THIS WILL REMAIN ON YOUR INCISION FOR 7 DAYS, THEN CAN BE REMOVED. IF INCISION IS LEAKING THROUGH DRESSING, CALL THE OFFICE . FOLLOW UP VISIT: If appointment is not already scheduled: Please call [facility] to make a follow-up appointment for 2 weeks after your surgery at . Current Hospital Diet Patient's current hospital diet: Regular Diet Discharge Diet Recommended Diet: Regular Diet Procedures Procedures Performed: revision total knee replacement all 3 components,synovectomy Pending Studies Studies pending at discharge: no Laboratory Results Hemoglobin A1c Test 04/20/17 16:00 Range/Units Estimated Average Glucose 137 mg/dl Hemoglobin A1c 6.4 H 4.5-5.6 % Medical Emergencies . Who to Call and When: Medical Emergencies: If at any time you feel your situation is an emergency, please call [phone] immediately. . Non-Emergent Contact Non-Emergency issues call your: Primary Care Provider . "Provider Documentation" section prepared by Mansoor Jefferson. . VTE Core Measure Inpt VTE Proph given/why not?: Other Anticoagulation (XARELTO), T.E.D. Stockings, SCD's [place] Drug Monitoring Program Search Results: patient reviewed within database, no issues identified
[2017-05-14 08:31] VITALS: BP 133/79; PULSE 92; TEMP 36.4; O2SAT 91
--- NOTE | 2017-05-14 10:06 | Hospitalist Progress Note ---
Hospitalist Progress Note Date of Service May 14, 2017. (Mikayla Peraza ., RENEE) Subjective Pt evaluation today including: conversation w/ patient, physical exam, chart review, lab review, review of inpatient medication list Voiding: no voiding problems, no incontinence Patient states he is feeling well. Eating and drinking OK. +flatus/BM postop. Pain is well controlled. Ambulating w/out significant difficulty. Patient denies any fever, chills, sweats, lightheadedness, dizziness, vision changes, CP, palpitations, edema, SOB, wheezing, cough, abdominal pain, nausea, vomiting, diarrhea, urinary symptoms, melena, numbness/tingling, weakness, anxiety/depression, active bleeding, or new skin discoloration/changes. (Mikayla Peraza ., VINAYC) Medications Current Inpatient Medications Medications (Trade) Dose Ordered Sig/Purnima Route Start Time Stop Time Status Last Admin Dose Admin Citalopram Hydrobromide (celeXA TAB) 40 mg QAM PO 05/13/17 09:00 06/12/17 08:59 05/14/17 07:50 40 MG Felodipine (Plendil Tabcr) 5 mg QAM PO 05/13/17 09:00 06/12/17 08:59 05/14/17 07:49 5 MG Cholecalciferol (Vitamin D Tab) 2,000 inter.unit QAM PO 05/13/17 09:00 06/12/17 08:59 05/14/17 07:50 2,000 INTER.UNIT Oxycodone HCl (Roxicodone Immediate Rel Tab) 1 TABLET FOR PAIN RATING... Q4H PRN PO 05/12/17 18:45 05/26/17 18:44 05/12/17 23:57 10 MG Oxycodone HCl (Oxycontin Tab) 10 mg Q12 PO 05/12/17 21:00 05/26/17 20:59 05/14/17 07:49 10 MG Morphine Sulfate (MoRPHine SULFATE INJ) 2 mg Q2H PRN IV 05/12/17 18:45 05/26/17 18:44 Acetaminophen (Tylenol Tab) 1,000 mg Q8H PO 05/13/17 00:00 06/12/17 00:00 05/14/17 07:50 1,000 MG Magnesium Hydroxide (Milk Of Magnesia Susp) 30 ml Q6H PRN PO 05/12/17 18:45 06/11/17 18:44 Bisacodyl (Dulcolax Supp) 10 mg DAILY PRN CO 05/12/17 18:45 06/11/17 18:44 Sodium Biphosphate/ Sodium Phosphate (Fleet Enema) 132 ml DAILY PRN CO 05/12/17 18:45 06/11/17 18:44 Docusate Sodium (coLACE CAP) 100 mg BID PO 05/12/17 21:00 06/11/17 20:59 05/14/17 07:49 100 MG Diphenhydramine HCl (Benadryl Cap) 25 mg Q8H PRN PO 05/12/17 18:45 06/11/17 18:44 Zolpidem Tartrate (Ambien Tab) 5 mg HSZ PRN PO 05/12/17 18:45 06/11/17 18:44 Multivitamins (Multivitamin Tab) 1 tab QAM PO 05/13/17 09:00 06/12/17 08:59 05/14/17 07:49 1 TAB Ondansetron HCl (Zofran Inj) 4 mg Q6H PRN IV 05/12/17 18:45 06/11/17 18:44 Pantoprazole Sodium (Protonix Tab) 40 mg QAM PO 05/13/17 09:00 06/12/17 08:59 05/14/17 07:49 40 MG Tramadol HCl (Ultram Tab) 1 tablet for pain rating... Q4H PRN PO 05/12/17 18:45 06/11/17 18:44 Rivaroxaban (Xarelto Tab) 10 mg Q24H PO 05/13/17 17:00 05/25/17 16:59 05/13/17 17:43 10 MG Morphine Sulfate (MoRPHine SULFATE INJ) 4 mg Q2H PRN IV 05/12/17 20:15 05/26/17 20:14 (Mikayla Peraza, RENEE) Objective Vital Signs Date Time Temp Pulse Resp B/P (MAP) Pulse Ox O2 Delivery O2 Flow Rate FiO2 05/14/17 08:31 36.4 92 18 91 Room Air 05/14/17 08:29 Room Air 8/4/17 06:00 36.4 92 18 133/79 (97) 91 Room Air 05/13/17 23:04 36.6 93 18 138/69 (92) 91 Room Air 05/13/17 23:00 Room Air 05/13/17 16:00 Room Air 05/13/17 15:20 36.4 83 16 112/67 (82) 92 Room Air 05/13/17 11:48 36.8 80 20 124/76 (92) 96 Room Air (Mikayla Peraza PA-C) Physical Exam General Appearance: no apparent distress Eyes: normal inspection, PERRL ENT: hearing grossly normal Neck: supple Respiratory/Chest: lungs clear, no respiratory distress, no accessory muscle use Cardiovascular: regular rate, rhythm Abdomen: normal bowel sounds, non tender, soft Extremities: no pedal edema, no calf tenderness, + pertinent finding (L knee brace on ) Neurologic/Psychiatric: alert, normal mood/affect, oriented x 3 Skin: normal color, warm/dry, no rash (Mikayla Peraza, WILD-C) Laboratory Results Last 24 Hours Test 05/14/17 05:44 White Blood Count 5.96 K/uL Red Blood Count 3.67 M/uL Hemoglobin 11.4 g/dL Hematocrit 33.3 % Mean Corpuscular Volume 90.7 fL Mean Corpuscular Hemoglobin 31.1 pg Mean Corpuscular Hemoglobin Concent 34.2 g/dl RDW Standard Deviation 44.2 fL RDW Coefficient of Variation 13.4 % Platelet Count 160 K/uL Mean Platelet Volume 9.0 fL Sodium Level 138 mmol/L Potassium Level 4.5 mmol/L Chloride Level 106 mmol/L Carbon Dioxide Level 28 mmol/L Anion Gap 4.0 mmol/L Blood Urea Nitrogen 24 mg/dl Creatinine 1.60 mg/dl Est Creatinine Clear Calc Drug Dose 38.0 ml/min Estimated GFR () 44.9 Estimated GFR (Non- 38.7 BUN/Creatinine Ratio 14.7 Random Glucose 125 mg/dl Calcium Level 8.9 mg/dl (Mikayla Peraza PA-C) Assessment and Plan Patient is an 87 y/o male, with PMHx of osteoarthritis, HTN, and GERD, s/p L TKA revision all components, synovectomy and debridement on 05/[address] Fuentes. s/p L TKA revision all components, synovectomy and debridement on 05/[address] Fuentes: - Surgical management, pain management, PT/OT, and DVT prophylaxis as per primary team -- Pain management- Tylenol 100 mg q8 hrs, Oxycodone 10 mg BID, Roxicodone 1 tab q4 hrs, Morphine IV 4 mg or 2 mg q2 hrs, Tramadol 1 tab q4 hrs PRN -- Bowel regimen- Dulcolax, Milk of Mag, fleet enema PRN - Encourage incentive spirometer - Follow routine CBC and PRP postop -- Minimal bump in kidney function- encouraged good fluid intake and PCP f/u in 1-2 weeks HTN- STABLE: Feldopine 5 mg daily Anxiety: Celexa 40 mg daily GERD/GI Prophylaxis: Protonix 40 mg daily- resume Prilosec 20 mg daily at discharge DVT Prophylaxis: Xarelto 10 mg daily x12 days per surgical team Code Status: LEVEL I, FULL Dispo: As per primary team- stable for discharge from medical standpoint Thank you for this consultation. We will continue to follow throughout hospital stay. (Mikayla Peraza ., PA-C) Attending Attestation: Pt seen/examined, chart reviewed, care plan d/w WILD Peraza. I agree w/ the haynes components of her documentation. Pt w/o complaints of sob, avalos, chest pain, abd pain. +flatus and BM. Going home today. VSS no fever gen - nad neck - no JVD heart - RRR, s1, s2 lungs - CTA b/l abd - soft, NT ext - edema left leg; left knee in large SELENE wrap Cr 1.6 A/P: 1. CKD stage 3 with minimal VIMAL - creatinine stable x 48 hours. Baseline Cr 1.4. 2. HTN - controlled. 3. DVT proph, pain control - per ortho. ok from medical standpoint to d/c home. Fredy Hensley MD (Fredy Hensley MD)
--- NOTE | 2017-05-19 20:11 | DISCHARGE SUMMARY ---
HISTORY OF PRESENT ILLNESS: This is an 87-year-old male patient of Dr. Fuentes's complaining of chronic left knee pain status post left total knee arthroplasty. The patient failed conservative treatment and was diagnosed with loosening of left total knee components and wished to proceed with a left total knee arthroplasty revision, aseptic. PAST MEDICAL HISTORY: Hypertension, osteoarthritis, neck problems, obesity and dental issues. POSTOPERATIVE COURSE: The patient underwent a left knee revision, total knee replacement all 3 components, synovectomy and debridement on 05/12/2017. He was followed closely with DVT prophylaxis in the form of Xarelto, physical therapy, pain control and medical consultation. The patient did very well postoperatively. All intraoperative cultures showed no organisms and no growth with micro. The patient did well post operatively and was discharged home on postoperative day #2. PHYSICAL EXAMINATION: On discharge, the patient's left knee Silverlon dressing was clean, dry and intact. There was no redness or drainage. Neurologically and neurovascularly he was intact in his left lower extremity. 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 He also has a history of hypertension, osteoarthritis, neck problems, obesity and dental issues. PLAN: The patient was discharged home with outpatient physical therapy on postoperative day #2. He will continue Xarelto for DVT prophylaxis. He will continue his preadmission medications with the addition of pain medications. The patient did not need any type of antibiotics, for his knee replacement was aseptic loosening with no growth, with intraoperative cultures. The patient will follow up with Dr. Fuentes as scheduled as an outpatient. CARISSA
== END 2017-05-14 11:05 | disposition home or self-care (01) | DRG 467 ==
LOC: C.ACU 09:29 → C.3E 10:20 → ENRESERV 19:23
PROVIDERS: ADMIT Orthopaedic Surgery Sports Medicine; ATTEND Orthopaedic Surgery Sports Medicine
PROC: 0SPD0JZ Removal of Synthetic Substitute from Left Knee Joint, Open Approach (ICD-10-PCS; principal; 2017-05-12 12:00)
PROC: 0SRD0J9 Replacement of Left Knee Joint with Synthetic Substitute, Cemented, Open Approach (ICD-10-PCS; principal; 2017-05-12 12:00)
DX: T84.013A Broken internal left knee prosthesis, initial encounter (principal); D62 Acute posthemorrhagic anemia; M65.88 Other synovitis and tenosynovitis, other site; I12.9 Hypertensive chronic kidney disease with stage 1 through stage 4 chronic kidney disease, or unspecified chronic kidney disease; N18.3 Chronic kidney disease, stage 3 (moderate); F32.9 Major depressive disorder, single episode, unspecified; E66.9 Obesity, unspecified; K21.9 Gastro-esophageal reflux disease without esophagitis; F41.9 Anxiety disorder, unspecified; M54.2 Cervicalgia; Z79.899 Other long term (current) drug therapy; Z68.28 Body mass index [BMI] 28.0-28.9, adult

== ENCOUNTER → 2017-06-05 | Outpatient (CLI) | payer BC, OTHER ==
[~2017-06-05] MED LIST changes: +ACET-24 PO; -ACETAMINOPHEN 500 MG TAB PO SCH; -ATROPINE SULFATE 0.1 MG/ML 5ML SYR IV PRN; -BUPIVACAINE 0.25% 30 ML VIAL ONE; -BUPIVACAINE 0.5 % 5 MG/1 ML PF 10ML VIAL ONE; -CEFAZOLIN 2000 MG/60 ML D5W 60 ML IV SCH; -CeleBREX 200 MG CAP PO SCH; -DEXAMETHASONE 4 MG TAB PO SCH; -EpHEDrine SULFATE INJ 50 MG/ML AMP IV PRN; -FAMOTIDINE 20 MG TAB PO SCH; -GABAPENTIN 300 MG CAP PO SCH; -LACTATED RINGER'S 1000ML 1,000 ML IV SCH; -LACTATED RINGER'S 1000ML 500 ML IV ONE; -LACTATED RINGER'S 1000ML IV SCH; -LACTATED RINGER'S 500 ML IV SCH; -OMEG10007 PO; +ONDA8TAB6 PO; -ONDANSETRON INJ 2 MG/ML 2 ML VIAL IV PRN; -OXYCODONE HCL 10 MG TABCR (OXYCONTIN) PO SCH; +OXYSR10 PO; +RXC5 PO; -TRANEXAMIC ACID INJ 1,000 MG in SODIUM CHLORIDE 0.9% 100ML 100 ML IV SCH; +XRL10 PO
== END | disposition home or self-care (01) ==
LOC: C.LABPVFM 11:06
PROVIDERS: ATTEND Nurse Practitioner Family
DX: R30.0 Dysuria (principal)

== ENCOUNTER → 2017-06-19 | Outpatient (CLI) | payer BC ==
[2017-06-19 14:28] LABS: BLOOD UREA NITROGEN 17 mg/dl (7-18); BUN/CREATININE RATIO 14.1 (10-20); CALCIUM 9.3 mg/dl (8.5-10.1); CARBON DIOXIDE 29 mmol/L (21-32); CHLORIDE 101 mmol/L (98-107); GLUCOSE 119 mg/dl (70-99); POTASSIUM 4.1 mmol/L (3.5-5.1); SODIUM 136 mmol/L (136-145)
[2017-06-19 14:31] LABS: ESTIMATED AVERAGE GLUCOSE 123 mg/dl; HA1C FLAG Normal (Normal)
== END | disposition home or self-care (01) ==
LOC: C.LABPVFM 10:17
PROVIDERS: ATTEND Family Medicine
DX: R73.01 Impaired fasting glucose (principal)

== ENCOUNTER → 2017-06-21 | Outpatient (CLI) | payer BC ==
--- NOTE | 2017-06-21 13:50 | DIAGNOSTIC IMAGING REPORT ---
LEFT SHOULDER MIN 2 VIEWS ROUTINE CLINICAL HISTORY: 87 years-old Male presenting with CERVICALGIA C SPINE, left shoulder pain. TECHNIQUE: Internal rotation, external rotation, and Grashey views left shoulder were obtained. COMPARISON: Comparison made to chest x-ray from 04/20/2017. FINDINGS: Widening of the left acromioclavicular joint, which measures 18 mm and is notably asymmetric to the right as demonstrated on prior chest x-ray. Bridging superior osteophytes suggests chronic injury. Normal coracoclavicular distance. The humeral head is slightly superiorly subluxed noted to the glenoid with resultant mild narrowing of the acromiohumeral interval, which could suggest chronic impingement. Associated osteophytosis noted at the inferior articular aspect of the humeral head. No acute fracture. 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 The presence of bridging superior osteophyte suggest chronic injury. No acute fracture. Degenerative changes of the glenohumeral joint. Electronically signed by: Lennox Garcia M.D. 06/21/2017 1:49 PM Dictated Date/Time: 06/21/2017 1:44 PM
--- NOTE | 2017-06-21 13:50 | DIAGNOSTIC IMAGING REPORT ---
C-SPINE ROUTINE 4 OR 5 VIEWS HISTORY: Pain CERVICALGIA C SPINE COMPARISON: None. FINDINGS: The cervical spine is visualized from C1 through the superior endplate of T1. There is no fracture. Mild reversal of normal cervical curvature. Considerable degenerative disc changes throughout. Evidence for degenerative fusion of the disc from C4 through C6. Linear pain traversing the C1-C2 complex. Prevertebral soft tissues and the atlantodens interval are intact. IMPRESSION: Interval placement of a linear pin traversing the C1-C2 complex at the level of the odontoid. Progressive degenerative change of the mid to lower cervical region. The above report was generated using voice recognition software. It may contain grammatical, syntax or spelling errors. Electronically signed by: Mansoor Díaz M.D. 06/21/2017 1:48 PM Dictated Date/Time: 06/21/2017 1:44 PM
== END | disposition home or self-care (01) ==
LOC: C.RADPV 12:54
PROVIDERS: ATTEND Family Medicine
DX: M54.2 Cervicalgia (principal); S49.92XA Unspecified injury of left shoulder and upper arm, initial encounter; X58.XXXA Exposure to other specified factors, initial encounter

== ENCOUNTER → 2017-07-10 | Outpatient (CLI) | payer BC | END | disposition home or self-care (01) | LOC: C.LABPVFM 12:59 | PROVIDERS: ATTEND Family Medicine | DX: R30.9 Painful micturition, unspecified (principal) ==

== ENCOUNTER → 2017-10-01 | Outpatient (CLI) | payer BC ==
[~2017-10-01] MED LIST changes: +ONDA-170 PO; -ONDA8TAB6 PO
== END | disposition home or self-care (01) ==
LOC: C.LABPVFM 10:23
PROVIDERS: ATTEND Urology
DX: R97.20 Elevated prostate specific antigen [PSA] (principal); N40.3 Nodular prostate with lower urinary tract symptoms

== ENCOUNTER → 2017-10-15 | Outpatient (CLI) | payer BC | END | disposition home or self-care (01) | LOC: C.LABSPEC 10:59 | PROVIDERS: ATTEND Urology | DX: N39.0 Urinary tract infection, site not specified (principal); N40.1 Benign prostatic hyperplasia with lower urinary tract symptoms ==

== ENCOUNTER → 2017-11-18 | Outpatient (CLI) | payer BC ==
[~2017-11-18] MED LIST changes: -ONDA-170 PO
== END | disposition home or self-care (01) ==
LOC: C.LABPVFM 13:09
PROVIDERS: ATTEND Nurse Practitioner Adult Health
DX: N39.0 Urinary tract infection, site not specified (principal); R39.9 Unspecified symptoms and signs involving the genitourinary system

== ENCOUNTER → 2017-12-13 | Outpatient (CLI) | payer BC | END | disposition home or self-care (01) | LOC: C.LABPVFM 13:31 | PROVIDERS: ATTEND Nurse Practitioner Adult Health | DX: R39.9 Unspecified symptoms and signs involving the genitourinary system (principal) ==

== ENCOUNTER → 2017-12-30 | Outpatient (CLI) | payer BC ==
--- NOTE | 2017-12-30 11:26 | DIAGNOSTIC IMAGING REPORT ---
[facility]UB CLINICAL HISTORY: 87 years-old Male presenting with N40.1 Benign localized hyperplasia of prostate with urinary obstruction. TECHNIQUE: Single supine view of the abdomen was obtained. COMPARISON: 10/19/2014. FINDINGS: Cholecystectomy clips noted. Mild stool burden throughout the colon. Nonobstructive bowel gas pattern. No gross pneumoperitoneum. Allowing for bowel gas and stool, no calcifications to suggest nephrolithiasis. Degenerative changes of the spine. Lung bases clear. IMPRESSION: 1. No acute intra-abdominal pathology. Electronically signed by: Lennox Garcia M.D. 12/30/2017 11:24 AM Dictated Date/Time: 12/30/2017 11:22 AM
== END | disposition home or self-care (01) ==
LOC: C.RAD 10:38
PROVIDERS: ATTEND Urology
DX: N40.1 Benign prostatic hyperplasia with lower urinary tract symptoms (principal)

== ENCOUNTER → 2018-01-21 | Outpatient (CLI) | payer BC | END | disposition home or self-care (01) | LOC: C.LABSPEC 14:43 | PROVIDERS: ATTEND Urology | DX: R30.0 Dysuria (principal); N39.0 Urinary tract infection, site not specified ==

== ENCOUNTER → 2018-06-01 | Outpatient (CLI) | payer BC | END | disposition home or self-care (01) | LOC: C.LABPVFM 17:10 | PROVIDERS: ATTEND Family Medicine | DX: R30.0 Dysuria (principal) ==

== ENCOUNTER 2020-10-22 20:01 | Observation (INO) ==
[2020-10-22 21:04] LABS: Hematocrit (blood only) 39.1 % (42-52); Hemoglobin 12.8 g/dL (14.0-18.0); Lymphocytes # (auto) 0.26 K/uL (1.2-3.4); Lymphocytes % (auto) 6.7 %; Mean Corpuscular Hemoglobin 29.1 pg (25-34); Mean Corpuscular Hgb Conc 32.7 g/dL (32-36); Mean Corpuscular Volume 88.9 fL (80-100); Mean Platelet Volume 8.8 fL (7.4-10.4); Monocytes # (auto) 0.18 K/uL (0.11-0.59); Monocytes % (auto) 4.6 %; Neutrophils # (auto) 3.45 K/uL (1.4-6.5); Neutrophils % (auto) 88.7 %; Platelet Count 281 K/uL (130-400); RDW Coefficient of Variation 14.5 % (11.5-14.5); RDW Standard Deviation 47.5 fL (36.4-46.3); White Blood Count 3.89 K/uL (4.8-10.8)
[2020-10-22 21:15] LABS: Base Excess VBG 1.3 mEq/L; Oxygen Saturation VBG 60.6 %; pH VBG 7.36 (7.36-7.41)
[2020-10-22 21:19] LABS: Partial Thromboplastin Ratio 0.9; Prothrombin Time 10.9 Seconds (9.0-12.0)
[2020-10-22 21:22] LABS: Alanine Aminotransferase 106 U/L (12-78); Albumin Level 3.3 gm/dl (3.4-5.0); Aspartate Aminotransferase 119 U/L (15-37); BUN Creatinine Ratio 13.8 (10-20); Blood Urea Nitrogen 20 mg/dl (7-18); Calcium 9.1 mg/dl (8.5-10.1); Carbon Dioxide 27 mmol/L (21-32); Chloride 105 mmol/L (98-107); Creatinine Clr Calc Pharmacy 35.9 ml/min; Est GFR (African American) 48.7; Glucose 146 mg/dl (70-99); Magnesium 1.8 mg/dl (1.8-2.4); Potassium 4.6 mmol/L (3.5-5.1); Sodium 137 mmol/L (136-145)
[2020-10-22 21:27] LABS: Alkaline Phosphatase 218 U/L (45-117); Bilirubin,Total 0.8 mg/dl (0.2-1); Globulin 3.2 gm/dl (2.5-4.0); Total Protein 6.5 gm/dl (6.4-8.2); Troponin I < 0.015 ng/ml (0-0.045)
[2020-10-22 22:12] LABS: Influenza A virus by PCR Negative (Neg); Influenza B virus by PCR Negative (Neg); RSV by PCR Negative (Neg); SARS CoV2 RNA(COVID-19) InHosp NEGATIVE (Negative)
--- NOTE | 2020-10-22 23:22 | Emergency Department Note ---
History of Present Illness General Chief complaint: Syncope (Near Syncope) Stated complaint: Syncope, vomit, headache Time Seen by Provider: 10/22/20 20:11 Source: patient and RN notes reviewed History of Present Illness Provider complaint: Headache Onset (ago): hour(s) 3 Location: head Radiation: non-radiation Severity: moderate Pain Consistency: + intermittent Maximum Pain Intensity: 8 Current Pain Intensity: 8 Associated symptoms: + shortness of breath 89-year-old male presents emergency department for headache that began 3 hours ago. Patient reports his head pain travels to his neck. He also reports nausea and vomiting x2. He also reports shortness of breath. No fevers. No hematemesis coffee-ground emesis or bilious vomiting. No abdominal pain or body aches. No loss of taste or smell. Home Medications Medication Instructions Recorded Confirmed Type cranberry 500 mg capsule 1,000 mg PO QAM 05/31/19 10/22/20 History donepezil 23 mg tablet 23 mg PO DAILY #90 tab 04/18/20 10/22/20 Rx fluticasone propionate 50 1 spray INTRANASAL BID #8.5 g 07/25/20 10/22/20 Rx mcg/actuation nasal spray,suspension citalopram 40 mg tablet 40 mg PO QAM #90 tab 08/26/20 10/22/20 Rx felodipine 5 mg tablet,extended 5 mg PO QAM #90 tab 08/26/20 10/22/20 Rx release 24 hr omeprazole 40 mg capsule,delayed 40 mg PO DAILY #90 cap 09/10/20 10/22/20 Rx release Allergies Allergy/AdvReac Type Severity Reaction Status Date / Time vancomycin Allergy Intermediate LOWER Verified 10/02/20 10:57 EXTREMITY SWELLING, FEVER Sulfa (Sulfonamide Allergy Mild Rash Verified 10/02/20 10:57 Antibiotics) gabapentin AdvReac Mild drowsy,conf Verified 10/02/20 10:57 used Past Med/Surg History Medical History (Updated 10/23/20 @ 00:24 by Glenn Moore) Anxiety 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 BPH (benign prostatic hyperplasia) Cervical facet joint syndrome Cervical radicular pain Cervical spinal stenosis Left C7 and 8 paresthesias CKD (chronic kidney disease) stage 3, GFR 30-59 ml/min Dyslipidemia GERD (gastroesophageal reflux disease) CONTROLLED Hearing difficulty History of gastric ulcer REMOTE (PER RECORDS) History of kidney stones Hypertension 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 Myofascial pain Nocturnal hypoxemia Occipital neuralgia of left side Osteoarthritis Surgical History H/O colonoscopy (06/2013) History of cystoscopy History of difficult intubation CHOLECYSTECTOMY= 01/11/14= GLIDESCOPE #4 (2/2 DECREASED CERVICAL ROM) BUT HAD GRADE VIEW 1, MAC 4 WITH ANKLE SURGERY 11/09/14 PER [facility] RECORDS History of esophagogastroduodenoscopy (EGD) (09/2019) History of shoulder surgery Rt shoulder - 09/22/18 [facility] History of total knee replacement B/L WITH REVISIONS; LEFT TKA REVISION= 05/13/17= SAB X 2 ATTEMPTS + PNB AT [facility] Hx of cervical spine surgery Hx of total ankle replacement RIGHT S/P cholecystectomy Family History Son Family history of diabetes mellitus Other No family history of adverse response to anesthesia No pertinent family history Denies family history of Ovarian cancer Prostate cancer Myocardial infarction Breast cancer Colorectal cancer Social History Smoking Status: Never smoker Second Hand Exposure: No; Hx Alcohol Use: No Hx Substance Use: No Preferred Language: Sinhala Communication Ability: Effective Visual Impairment: No Limitations Vault Custodian Required: No Beliefs That Will Affect Care: None marital status: Current Living Situation: Spouse current occupational status: 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 Feels Safe at Home: Yes caffeine: No Seatbelt Use: always Assistive Devices: Glasses Review of Systems A total of 10 systems reviewed and were otherwise negative Physical Exam Vital Signs Vital Signs - 24 hr 10/22/20 20:04 10/22/20 20:17 10/22/20 20:20 Temperature 37.1 C Temperature Source Oral Pulse Rate 119 H 115 H 112 H Pulse Rate [Apical] Pulse Rate from SpO2 Sensor 114 H 110 H Pulse Rhythm Pulse Rhythm [Apical] Pulse Strength [Apical] Respiratory Rate 18 28 H 35 H Respiratory Effort / Characteristics Non-Labored Spontaneous Respiratory Depth Normal Respiratory Pattern Blood Pressure 155/80 H Blood Pressure [Left Arm] Blood Pressure Mean 105 Blood Pressure Mean [Left Arm] Blood Pressure Position [Left Arm] Pulse Oximetry 91 94 93 Oxygen Delivery Method Room Air Sepsis Recent Fever Within 48 Hours No Sepsis New/Unexplained Change in Mental Status No Sepsis Action Taken by Nursing No Action Required 10/22/20 20:30 10/22/20 20:40 10/22/20 20:44 Temperature Temperature Source Pulse Rate 109 H 109 H 106 H Pulse Rate [Apical] Pulse Rate from SpO2 Sensor 110 H 109 H 109 H Pulse Rhythm Pulse Rhythm [Apical] Pulse Strength [Apical] Respiratory Rate 30 H 38 H 40 H Respiratory Effort / Characteristics Respiratory Depth Respiratory Pattern Blood Pressure 146/72 H Blood Pressure [Left Arm] Blood Pressure Mean 84 Blood Pressure Mean [Left Arm] Blood Pressure Position [Left Arm] Pulse Oximetry 95 94 93 Oxygen Delivery Method Sepsis Recent Fever Within 48 Hours Sepsis New/Unexplained Change in Mental Status Sepsis Action Taken by Nursing 10/22/20 20:50 10/22/20 21:00 10/22/20 21:01 Temperature Temperature Source Pulse Rate 108 H 110 H 110 H Pulse Rate [Apical] 108 H Pulse Rate from SpO2 Sensor 112 H 108 H 108 H Pulse Rhythm Regular Pulse Rhythm [Apical] Irregular Pulse Strength [Apical] Normal Respiratory Rate 39 H 37 H 30 H Respiratory Effort / Characteristics Non-Labored Spontaneous Accessory Muscle Use Respiratory Depth Normal Respiratory Pattern Regular Blood Pressure 147/78 H Blood Pressure [Left Arm] 147/78 H Blood Pressure Mean 97 Blood Pressure Mean [Left Arm] 101 Blood Pressure Position [Left Arm] Semi-fowlers Pulse Oximetry 95 93 93 Oxygen Delivery Method Room Air Sepsis Recent Fever Within 48 Hours Sepsis New/Unexplained Change in Mental Status Sepsis Action Taken by Nursing 10/22/20 21:10 10/22/20 21:20 10/22/20 21:30 Temperature Temperature Source Pulse Rate 107 H 100 H 108 H Pulse Rate [Apical] Pulse Rate from SpO2 Sensor 106 H 104 H 104 H Pulse Rhythm Pulse Rhythm [Apical] Pulse Strength [Apical] Respiratory Rate 40 H 35 H 39 H Respiratory Effort / Characteristics Respiratory Depth Respiratory Pattern Blood Pressure 148/73 H Blood Pressure [Left Arm] Blood Pressure Mean 94 Blood Pressure Mean [Left Arm] Blood Pressure Position [Left Arm] Pulse Oximetry 94 94 94 Oxygen Delivery Method Sepsis Recent Fever Within 48 Hours Sepsis New/Unexplained Change in Mental Status Sepsis Action Taken by Nursing 10/22/20 21:31 10/22/20 21:42 10/22/20 22:01 Temperature Temperature Source Pulse Rate 101 H 108 H 126 H Pulse Rate [Apical] Pulse Rate from SpO2 Sensor 102 H 107 H 123 H Pulse Rhythm Pulse Rhythm [Apical] Pulse Strength [Apical] Respiratory Rate 41 H 30 H 41 H Respiratory Effort / Characteristics Respiratory Depth Respiratory Pattern Blood Pressure Blood Pressure [Left Arm] Blood Pressure Mean Blood Pressure Mean [Left Arm] Blood Pressure Position [Left Arm] Pulse Oximetry 93 92 Oxygen Delivery Method Sepsis Recent Fever Within 48 Hours Sepsis New/Unexplained Change in Mental Status Sepsis Action Taken by Nursing 10/22/20 22:10 10/22/20 22:20 10/22/20 22:30 Temperature Temperature Source Pulse Rate 109 H 109 H 107 H Pulse Rate [Apical] Pulse Rate from SpO2 Sensor 109 H 104 H 107 H Pulse Rhythm Pulse Rhythm [Apical] Pulse Strength [Apical] Respiratory Rate 44 H 36 H 39 H Respiratory Effort / Characteristics Respiratory Depth Respiratory Pattern Blood Pressure Blood Pressure [Left Arm] Blood Pressure Mean Blood Pressure Mean [Left Arm] Blood Pressure Position [Left Arm] Pulse Oximetry 96 96 93 Oxygen Delivery Method Sepsis Recent Fever Within 48 Hours Sepsis New/Unexplained Change in Mental Status Sepsis Action Taken by Nursing 10/22/20 22:40 10/22/20 23:00 10/22/20 23:05 Temperature Temperature Source Pulse Rate 108 H Pulse Rate [Apical] 138 H Pulse Rate from SpO2 Sensor 106 H Pulse Rhythm Pulse Rhythm [Apical] Regular Pulse Strength [Apical] Normal Respiratory Rate 40 H 18 18 Respiratory Effort / Characteristics Non-Labored Spontaneous Accessory Muscle Use Respiratory Depth Respiratory Pattern Blood Pressure Blood Pressure [Left Arm] 142/106 H Blood Pressure Mean Blood Pressure Mean [Left Arm] 118 Blood Pressure Position [Left Arm] Lying Pulse Oximetry 93 96 96 Oxygen Delivery Method Room Air Sepsis Recent Fever Within 48 Hours Sepsis New/Unexplained Change in Mental Status Sepsis Action Taken by Nursing Physical Exam GENERAL: He is oriented to person, place, and time. He appears well-developed and well-nourished. He does not appear distressed. HENT: Exam performed. - Head: Normocephalic and atraumatic. - Right Ear: External ear normal. No mastoid tenderness. - Left Ear: External ear normal. No mastoid tenderness. - Mouth/Throat: The oropharynx is clear and moist. No trismus in the jaw. No dental abscesses or uvula swelling. No oropharyngeal exudate or tonsillar abscesses. EYES: Conjunctivae and EOM are normal. Pupils are equal, round, and reactive to light. Right eye exhibits no discharge. Left eye exhibits no discharge. No scleral icterus. NECK: Normal range of motion. Neck supple. No JVD present. No spinous process tenderness present. No carotid bruit present. No rigidity. No tracheal deviation and normal range of motion present. No Brudzinski's sign and no Kernig's sign noted. CV: Tachycardic rate, irregular rhythm, normal heart sounds and intact distal pulses. There is no peripheral edema. Palpable radial pulses bue. PULM/CHEST: Effort normal and breath sounds normal. No respiratory distress. No stridor. He has no wheezes. He has no rales. - Chest Wall: He exhibits no tenderness. ABD: The abdomen is soft. Bowel sounds are normal. He has no distension. No mass is present. There is no tenderness. There is no rebound, no guarding, no Iraheta's sign and no tenderness at McBurney's point. Rovsig negative. MUSC/SKEL: Normal range of motion. There is no peripheral edema, tenderness or deformity. LYMPH: No cervical adenopathy. NEURO: He is alert and oriented to person, place, and time. He has normal strength. No cranial nerve deficit or sensory deficit. Coordination and gait normal. GCS eye subscore is 4. GCS verbal subscore is 5. GCS motor subscore is 6. Cerebellar tests wnl. SKIN: Skin is warm and dry. He is not diaphoretic. PSYCH: He has a normal mood and affect. Behavior is normal. Judgment and thought content normal. Course Course 2010: The patient was evaluated in room A9. A complete history and physical exam was performed. Cardiac monitoring: An order was placed for continuous cardiac monitoring. The monitor shows a rate of 110 with atrial flutter rhythm EMR reviewed. Patient has a history of CKD. He also has a history of dementia. EKG showed atrial flutter. EMR reviewed and the patient has no history of atrial flutter in the past. 2345: Vital signs stable. Imaging shows no acute traumatic injury. CT of the head was conducted within 6 hours symptom onset effectively ruling out SAH. Patient remains in a new onset atrial flutter. Labs show an AST of 119 and ALT of 106. Alkaline phosphatase 218. The patient's new onset of atrial flutter, patient will be admitted to the hospital service. Dr. Shah notified. I discussed the patient's case with his daughter at his request Nancy [phone] who thanked me for taking care of her father and notifying her on plans to admit her father. Medical Decision Making Laboratory Data Result diagrams: 10/22/20 20:49 10/22/20 20:49 Lab Results 10/22/20 10/22/20 10/22/20 Range/Units 20:49 20:49 20:49 WBC 3.89 L (4.8-10.8) K/uL RBC 4.40 L (4.7-6.1) M/uL Hgb 12.8 L (14.0-18.0) g/dL Hct 39.1 L (42-52) % MCV 88.9 (80-100) fL MCH 29.1 (25-34) pg MCHC 32.7 (32-36) g/dL RDW Std Deviation 47.5 H (36.4-46.3) fL RDW Coeff of Reilly 14.5 (11.5-14.5) % Plt Count 281 (130-400) K/uL MPV 8.8 (7.4-10.4) fL Immature Gran % (Auto) 0.0 % Neut % (Auto) 88.7 % Lymph % (Auto) 6.7 % [place] % (Auto) 4.6 % Eos % (Auto) 0.0 % Baso % (Auto) 0.0 % Neut # (Auto) 3.45 (1.4-6.5) K/uL Lymph # (Auto) 0.26 L (1.2-3.4) K/uL [place] # (Auto) 0.18 (0.11-0.59) K/uL Eos # (Auto) 0.00 (0-0.5) K/uL Baso # (Auto) 0.00 (0-0.2) K/uL Immature Gran # (Auto) 0.00 (0.00-0.02) K/uL PT 10.9 (9.0-12.0) Seconds INR 1.0 (0.9-1.1) APTT 24.0 (21.0-31.0) Seconds PTT Ratio 0.9 VBG pH (7.36-7.41) VBG pCO2 (38-50) mmHg VBG pO2 mmHg VBG HCO3 mmol/L VBG O2 Saturation % VBG Base Excess mEq/L Carboxyhemoglobin % THgb Barometric Pressure mm/Hg Sodium 137 (136-145) mmol/L Potassium 4.6 (3.5-5.1) mmol/L Chloride 105 (98-107) mmol/L Carbon Dioxide 27 (21-32) mmol/L Anion Gap 5.0 (3-11) BUN 20 H (7-18) mg/dl Creatinine 1.47 H (0.6-1.4) mg/dl Est Cr Clr Drug Dosing 35.9 ml/min Est GFR ( Amer) 48.7 Est GFR (Non-Af Amer) 42.0 BUN/Creatinine Ratio 13.8 (10-20) Glucose 146 H (70-99) mg/dl Lactate (0.4-2.0) mmol/L Calcium 9.1 (8.5-10.1) mg/dl Magnesium 1.8 (1.8-2.4) mg/dl Total Bilirubin 0.8 (0.2-1) mg/dl AST 119 H (15-37) U/L ALT 106 H (12-78) U/L Alkaline Phosphatase 218 H (45-117) U/L Troponin I < 0.015 (0-0.045) ng/ml Total Protein 6.5 (6.4-8.2) gm/dl Albumin 3.3 L (3.4-5.0) gm/dl Globulin 3.2 (2.5-4.0) gm/dl Albumin/Globulin Ratio 1.0 (0.9-2) Procalcitonin (0-0.5) ng/ml COVID-19 Eval Order SARS-CoV-2 (PCR) (Negative) Influenza Type A (PCR) (Neg) Influenza Type B (PCR) (Neg) RSV (RT-PCR) (Neg) 10/22/20 10/22/20 10/22/20 Range/Units 20:49 20:49 20:59 WBC (4.8-10.8) K/uL RBC (4.7-6.1) M/uL Hgb (14.0-18.0) g/dL Hct (42-52) % MCV (80-100) fL MCH (25-34) pg MCHC (32-36) g/dL RDW Std Deviation (36.4-46.3) fL RDW Coeff of Reilly (11.5-14.5) % Plt Count (130-400) K/uL MPV (7.4-10.4) fL Immature Gran % (Auto) % Neut % (Auto) % Lymph % (Auto) % [place] % (Auto) % Eos % (Auto) % Baso % (Auto) % Neut # (Auto) (1.4-6.5) K/uL Lymph # (Auto) (1.2-3.4) K/uL [place] # (Auto) (0.11-0.59) K/uL Eos # (Auto) (0-0.5) K/uL Baso # (Auto) (0-0.2) K/uL Immature Gran # (Auto) (0.00-0.02) K/uL PT (9.0-12.0) Seconds INR (0.9-1.1) APTT (21.0-31.0) Seconds PTT Ratio VBG pH 7.36 (7.36-7.41) VBG pCO2 49 (38-50) mmHg VBG pO2 33 mmHg VBG HCO3 27 mmol/L VBG O2 Saturation 60.6 % VBG Base Excess 1.3 mEq/L Carboxyhemoglobin % THgb Barometric Pressure 736.0 mm/Hg Sodium (136-145) mmol/L Potassium (3.5-5.1) mmol/L Chloride (98-107) mmol/L Carbon Dioxide (21-32) mmol/L Anion Gap (3-11) BUN (7-18) mg/dl Creatinine (0.6-1.4) mg/dl Est Cr Clr Drug Dosing ml/min Est GFR ( Amer) Est GFR (Non-Af Amer) BUN/Creatinine Ratio (10-20) Glucose (70-99) mg/dl Lactate 1.6 (0.4-2.0) mmol/L Calcium (8.5-10.1) mg/dl Magnesium (1.8-2.4) mg/dl Total Bilirubin (0.2-1) mg/dl AST (15-37) U/L ALT (12-78) U/L Alkaline Phosphatase (45-117) U/L Troponin I (0-0.045) ng/ml Total Protein (6.4-8.2) gm/dl Albumin (3.4-5.0) gm/dl Globulin (2.5-4.0) gm/dl Albumin/Globulin Ratio (0.9-2) Procalcitonin 0.35 (0-0.5) ng/ml COVID-19 Eval Order SARS-CoV-2 (PCR) (Negative) Influenza Type A (PCR) (Neg) Influenza Type B (PCR) (Neg) RSV (RT-PCR) (Neg) 10/22/20 10/22/20 10/22/20 Range/Units 20:59 21:17 21:17 WBC (4.8-10.8) K/uL RBC (4.7-6.1) M/uL Hgb (14.0-18.0) g/dL Hct (42-52) % MCV (80-100) fL MCH (25-34) pg MCHC (32-36) g/dL RDW Std Deviation (36.4-46.3) fL RDW Coeff of Reilly (11.5-14.5) % Plt Count (130-400) K/uL MPV (7.4-10.4) fL Immature Gran % (Auto) % Neut % (Auto) % Lymph % (Auto) % [place] % (Auto) % Eos % (Auto) % Baso % (Auto) % Neut # (Auto) (1.4-6.5) K/uL Lymph # (Auto) (1.2-3.4) K/uL [place] # (Auto) (0.11-0.59) K/uL Eos # (Auto) (0-0.5) K/uL Baso # (Auto) (0-0.2) K/uL Immature Gran # (Auto) (0.00-0.02) K/uL PT (9.0-12.0) Seconds INR (0.9-1.1) APTT (21.0-31.0) Seconds PTT Ratio VBG pH (7.36-7.41) VBG pCO2 (38-50) mmHg VBG pO2 mmHg VBG HCO3 mmol/L VBG O2 Saturation % VBG Base Excess mEq/L Carboxyhemoglobin 0.0 % THgb Barometric Pressure mm/Hg Sodium (136-145) mmol/L Potassium (3.5-5.1) mmol/L Chloride (98-107) mmol/L Carbon Dioxide (21-32) mmol/L Anion Gap (3-11) BUN (7-18) mg/dl Creatinine (0.6-1.4) mg/dl Est Cr Clr Drug Dosing ml/min Est GFR ( Amer) Est GFR (Non-Af Amer) BUN/Creatinine Ratio (10-20) Glucose (70-99) mg/dl Lactate (0.4-2.0) mmol/L Calcium (8.5-10.1) mg/dl Magnesium (1.8-2.4) mg/dl Total Bilirubin (0.2-1) mg/dl AST (15-37) U/L ALT (12-78) U/L Alkaline Phosphatase (45-117) U/L Troponin I (0-0.045) ng/ml Total Protein (6.4-8.2) gm/dl Albumin (3.4-5.0) gm/dl Globulin (2.5-4.0) gm/dl Albumin/Globulin Ratio (0.9-2) Procalcitonin (0-0.5) ng/ml COVID-19 Eval Order CovFluRsv at [facility] SARS-CoV-2 (PCR) NEGATIVE (Negative) Influenza Type A (PCR) Negative (Neg) Influenza Type B (PCR) Negative (Neg) RSV (RT-PCR) Negative (Neg) Imaging Data My Impression: Chest x-ray: Chest x-ray negative. Airway clear. No p neumothorax. No consolidation. No cardiomegaly or cephalization.. No free air under the diaphragm. No fractures of the skeletal structures. Radiologist's Impression: Preliminary Findings Only See Final Report For Complete Findings CT C SPINE: Comparison is made to CT C-spine on 09/19/2019 and MRI C-spine on 10/30/2019. No acute traumatic abnormality identified. Straightening of the normal cervical lordosis. Mild anterolisthesis of C2 on C3 and C3 on C4. Osteopenia. 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 Prominent degenerative changes throughout the cervical spine. Screw in the dens. Atherosclerotic changes of the vasculature. Radiologist: Melidna Segundo M.D. Study ready at 21:56 and initial results transmitted at 22:01 Preliminary Findings Only See Final Report For Complete Findings CT HEAD: Comparison is made to CT head on 08/03/2019. No acute intracranial abnormality identified. Stable chronic small vessel ischemic disease and cerebral volume loss. Bilateral lens implants. Atherosclerotic calcifications of the intracranial vasculature. Radiologist: Melinda Segundo M.D. Study ready at 21:45 and initial results transmitted at 21:49 Preliminary Findings Only See Final Report For Complete Findings US RUQ: Limited by bowel gas and sonographic technique. Cholecystectomy. No biliary dilatation. Liver, right kidney are unremarkable. Radiologist: Monica Jacobs M.D. Study ready at 00:07 and initial results transmitted at 00:13 ECG Data Indication: + SOB/dyspnea Rate (beats per minute): 114 Rhythm: + atrial flutter ECG ST segments: + Normal ST segments ECG Findings: + LVH Comparison ECG Date: from (July 2019) Change: the following changes noted (New onset atrial flutter.) Additional Comments: QRS interval 126 QTc interval 416. Bifascicular block present. EKG #2 at 2332: Atrial flutter with a rate of 100. QRS 126 QTC 430. Bifascicular block present. No ST elevation or ST depression. Left ventricular hypertrophy present. [facility] Narrative 2011: The patient was evaluated in room A9. A complete history and physical exam was performed. Cardiac monitoring: An order was placed for continuous cardiac monitoring. The monitor shows a rate of 110 with atrial flutter rhythm EMR reviewed. Patient has a history of CKD. He also has a history of dementia. EKG showed atrial flutter. EMR reviewed and the patient has no history of atrial flutter in the past. 2345: Vital signs stable. Imaging shows no acute traumatic injury. CT of the head was conducted within 6 hours symptom onset effectively ruling out SAH. Patient remains in a new onset atrial flutter. Labs show an AST of 119 and ALT of 106. Alkaline phosphatase 218. The patient's new onset of atrial flutter, patient will be admitted to the hospital service. Dr. Shah notified. I discussed the patient's case with his daughter at his request Nancy [phone] who thanked me for taking care of her father and notifying her on plans to admit her father. Impression & Plan Atrial flutter Discharge Plan Visit Data Chief Complaint: Syncope (Near Syncope) Stated Complaint: Syncope, vomit, headache ED Provider: Glenn Moore Discharge Problem: Atrial flutter Patient Disposition: Being Evaluated by Hospitalist Forms Stand Alone Forms: My [facility] Prescriptions Prescriptions: No Action donepezil 23 mg tablet 23 mg PO DAILY Qty: 90 RF: 3 felodipine 5 mg tablet extended release 24 hr 5 mg PO QAM Qty: 90 RF: 3 citalopram 40 mg tablet 40 mg PO QAM Qty: 90 RF: 3 omeprazole 40 mg capsule,delayed release(DR/EC) 40 mg PO DAILY Qty: 90 RF: 3 fluticasone propionate 50 mcg/actuation spray,suspension 1 spray intranasal BID Qty: 8.5 RF: 2 cranberry 500 mg capsule 1,000 mg PO QAM RF: 0 Referrals Referrals: Sally Schaeffer CRNP [Primary Care Provider] - Discharge Problem: Atrial flutter Qualifiers: Atrial flutter type: unspecified Qualified Code(s): I48.92 - Unspecified atrial flutter
[2020-10-23] MEDS ORDERED: ACETAMINOPHEN 325 MG TAB PO PRN (01:39)
[2020-10-23] MEDS ORDERED: ONDANSETRON INJ 2 MG/ML 2 ML VIAL IV PRN (01:39)
[2020-10-23] MEDS: LACTATED RINGER'S 1,000 ML IV SCH ×2 (02:01→12:11)
--- NOTE | 2020-10-23 02:42 | History & Physical Report ---
Date of Service October 23, 2020 Assessment & Plan (1) Abnormal liver function tests: Elevated AST, ALT, AP. Liver US unremarkable -Check Acetaminophen level - patient states he does not routinely take Tylenol, however -Check Hepatitis panel -Repeat LFTs Present on Admission?: Yes (2) Pain: Patient with chronic, ongoing left sided pain following a fall from a tractor. -Tylenol as needed -Heating pad -Lidoderm Present on Admission?: Yes (3) Dementia: Chronic. Patient with memory deficit -Continue Aricept 10mg po daily Present on Admission?: Yes (4) Hypertension: Blood pressure stable -Continue to monitor -No antihypertensives at this time Present on Admission?: Yes (5) GERD (gastroesophageal reflux disease): Chronic. Stable -Continue Protonix 40mg po daily Present on Admission?: Yes (6) Anxiety: Chronic. Stable -Continue Celexa Present on Admission?: Yes (7) CKD (chronic kidney disease) stage 3, GFR 30-59 ml/min: BUN and Cr slightly above baseline -LR -Repeat chemistry -Avoid nephrotoxins Present on Admission?: Yes (8) Mild obstructive sleep apnea: Chronic. Patient reports being compliant with CPAP at home. He does not recall his setting -CPAP qHS, titrate as needed F/E/N -LR at 100mL/hr x 2 liters, monitor electrolytes, Ppx - Lovenox 30 Code - DNR/DNI Dispo - Observation to medical Present on Admission?: Yes Admission and Anticipated Discharge Date Admission Date: October 23, 2020 History of Present Illness Chief Complaint: pain Primary Care Provider: DESI Mir Serafin Desir is an 89yo C male presenting with left sided pain. Patient reports h/o trauma 2 years ago when he fell off a tractor, injuring his left side. Since then he has had chronic pain and spasm of the muscles of his left neck as well as his LUE and left abdomen, chronic headache. He reports this pain is chronic for years, however, has been worsening over the last few months. He reports frequent muscle spasm in his neck as well as chronic pain and numbness of his left arm. He decided to come to the ER today because he has felt too miserable for too long. Had some nausea with one episode of non-bloody/non-bilious vomiting 2 days ago Subjective fevers at home. Denies CP/palpitations/SOB/cough/dysuria Afebrile, HD stable in ER. Allergies Allergy/AdvReac Type Severity Reaction Status Date / Time vancomycin Allergy Intermediate LOWER Verified 10/02/20 10:57 EXTREMITY SWELLING, FEVER Sulfa (Sulfonamide Allergy Mild Rash Verified 10/02/20 10:57 Antibiotics) gabapentin AdvReac Mild drowsy,conf Verified 10/02/20 10:57 used Home Medications Medication Instructions Recorded Confirmed Type cranberry 500 mg capsule 1,000 mg PO QAM 05/31/19 10/22/20 History donepezil 23 mg tablet 23 mg PO DAILY #90 tab 04/18/20 10/22/20 Rx fluticasone propionate 50 1 spray INTRANASAL BID #8.5 g 07/25/20 10/22/20 Rx mcg/actuation nasal spray,suspension citalopram 40 mg tablet 40 mg PO QAM #90 tab 08/26/20 10/22/20 Rx felodipine 5 mg tablet,extended 5 mg PO QAM #90 tab 08/26/20 10/22/20 Rx release 24 hr omeprazole 40 mg capsule,delayed 40 mg PO DAILY #90 cap 09/10/20 10/22/20 Rx release Past Med/Surg History Medical History (Updated 10/23/20 @ 02:48 by Jaye Shah DO) Anxiety 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 BPH (benign prostatic hyperplasia) Cervical facet joint syndrome Cervical radicular pain Cervical spinal stenosis Left C7 and 8 paresthesias CKD (chronic kidney disease) stage 3, GFR 30-59 ml/min Dyslipidemia GERD (gastroesophageal reflux disease) CONTROLLED Hearing difficulty History of gastric ulcer REMOTE (PER RECORDS) History of kidney stones Hypertension 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 Myofascial pain Nocturnal hypoxemia Occipital neuralgia of left side Osteoarthritis Surgical History H/O colonoscopy (06/2013) History of cystoscopy History of difficult intubation CHOLECYSTECTOMY= 01/11/14= GLIDESCOPE #4 (2/2 DECREASED CERVICAL ROM) BUT HAD GRADE VIEW 1, MAC 4 WITH ANKLE SURGERY 11/09/14 PER [facility] RECORDS History of esophagogastroduodenoscopy (EGD) (09/2019) History of shoulder surgery Rt shoulder - 09/22/18 [facility] History of total knee replacement B/L WITH REVISIONS; LEFT TKA REVISION= 05/13/17= SAB X 2 ATTEMPTS + PNB AT [facility] Hx of cervical spine surgery Hx of total ankle replacement RIGHT S/P cholecystectomy Family History Son Family history of diabetes mellitus Other No family history of adverse response to anesthesia No pertinent family history Denies family history of Ovarian cancer Prostate cancer Myocardial infarction Breast cancer Colorectal cancer Social History Smoking Status: Never smoker Second Hand Exposure: No; Hx Alcohol Use: No Hx Substance Use: No Preferred Language: Serbian Communication Ability: Effective Visual Impairment: No Limitations Ui Developer Designer Required: No Beliefs That Will Affect Care: None marital status: Current Living Situation: Spouse current occupational status: retired 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 Feels Safe at Home: Yes caffeine: No Seatbelt Use: always Assistive Devices: Hearing Aid - Bilateral Assistive Devices Comment: cpap hs Review of Systems Review of Systems: All systems reviewed & are unremarkable except as noted in HPI & below Physical Exam Physical Exam: General: patient resting comfortably, NAD, non-toxic in appearance, AA&O x 4 Skin: warm, dry, intact, no rashes or lesions HEENT: NC/AT, small pupils bilaterally, EOMI, anicteric sclera, conjunctiva without injection, external ear normal to inspection and nontender, nares patent, moist mucus membranes, dentition intact, no oropharyngeal lesions, neck supple, trachea midline, no LAD, no thyromegaly, no JVD Heart: +S1/S2, regular with ectopy, no m/r/g Lungs: equal air entry bilaterally, no rales/rhonchi/wheezes Abd: +BS, soft, ND, tenderness in left flank, no masses/organomegaly/ascites, negative Iraheta's sign Ext: warm, 2+ pulses in UE/LE bilaterally, LLE appears slightly swollen with tortuous varicosities, RLE with tenderness with palpation of calf Neuro: nonfocal, patient AA&O x 4, speech intact, no facial droop, moving all extremities on command with equal strength 5/5 Results & Data Results & Data ([facility]) Vital Signs (Past 12 Hours) Vital Signs Temp Pulse Pulse Resp BP BP Pulse Ox 10/23/20 02:26 90 16 95 10/23/20 01:59 90 10/23/20 01:12 88 18 115/60 96 10/22/20 23:05 18 96 10/22/20 23:00 138 H 18 142/106 H 96 10/22/20 22:40 108 H 40 H 93 10/22/20 22:30 107 H 39 H 93 10/22/20 22:20 109 H 36 H 96 10/22/20 22:10 109 H 44 H 96 10/22/20 22:01 126 H 41 H 10/22/20 21:42 108 H 30 H 92 10/22/20 21:31 101 H 41 H 93 10/22/20 21:30 108 H 39 H 148/73 H 94 10/22/20 21:20 100 H 35 H 94 10/22/20 21:10 107 H 40 H 94 10/22/20 21:01 110 H 30 H 93 10/22/20 21:00 110 H 108 H 37 H 147/78 H 147/78 H 93 10/22/20 20:50 108 H 39 H 95 10/22/20 20:44 106 H 40 H 146/72 H 93 10/22/20 20:40 109 H 38 H 94 10/22/20 20:30 109 H 30 H 95 10/22/20 20:20 112 H 35 H 93 10/22/20 20:17 115 H 28 H 94 10/22/20 20:04 37.1 C 119 H 18 155/80 H 91 Laboratory Results Lab Results 10/22/20 10/22/20 10/22/20 Range/Units 20:49 20:49 20:49 WBC 3.89 L (4.8-10.8) K/uL RBC 4.40 L (4.7-6.1) M/uL Hgb 12.8 L (14.0-18.0) g/dL Hct 39.1 L (42-52) % MCV 88.9 (80-100) fL MCH 29.1 (25-34) pg MCHC 32.7 (32-36) g/dL RDW Std Deviation 47.5 H (36.4-46.3) fL RDW Coeff of Reilly 14.5 (11.5-14.5) % Plt Count 281 (130-400) K/uL MPV 8.8 (7.4-10.4) fL Immature Gran % (Auto) 0.0 % Neut % (Auto) 88.7 % Lymph % (Auto) 6.7 % [place] % (Auto) 4.6 % Eos % (Auto) 0.0 % Baso % (Auto) 0.0 % Neut # (Auto) 3.45 (1.4-6.5) K/uL Lymph # (Auto) 0.26 L (1.2-3.4) K/uL [place] # (Auto) 0.18 (0.11-0.59) K/uL Eos # (Auto) 0.00 (0-0.5) K/uL Baso # (Auto) 0.00 (0-0.2) K/uL Immature Gran # (Auto) 0.00 (0.00-0.02) K/uL PT 10.9 (9.0-12.0) Seconds INR 1.0 (0.9-1.1) APTT 24.0 (21.0-31.0) Seconds PTT Ratio 0.9 VBG pH (7.36-7.41) VBG pCO2 (38-50) mmHg VBG pO2 mmHg VBG HCO3 mmol/L VBG O2 Saturation % VBG Base Excess mEq/L Carboxyhemoglobin % THgb Barometric Pressure mm/Hg Sodium 137 (136-145) mmol/L Potassium 4.6 (3.5-5.1) mmol/L Chloride 105 (98-107) mmol/L Carbon Dioxide 27 (21-32) mmol/L Anion Gap 5.0 (3-11) BUN 20 H (7-18) mg/dl Creatinine 1.47 H (0.6-1.4) mg/dl Est Cr Clr Drug Dosing 35.9 ml/min Est GFR ( Amer) 48.7 Est GFR (Non-Af Amer) 42.0 BUN/Creatinine Ratio 13.8 (10-20) Glucose 146 H (70-99) mg/dl Lactate (0.4-2.0) mmol/L Calcium 9.1 (8.5-10.1) mg/dl Magnesium 1.8 (1.8-2.4) mg/dl Total Bilirubin 0.8 (0.2-1) mg/dl AST 119 H (15-37) U/L ALT 106 H (12-78) U/L Alkaline Phosphatase 218 H (45-117) U/L Troponin I < 0.015 (0-0.045) ng/ml Total Protein 6.5 (6.4-8.2) gm/dl Albumin 3.3 L (3.4-5.0) gm/dl Globulin 3.2 (2.5-4.0) gm/dl Albumin/Globulin Ratio 1.0 (0.9-2) Procalcitonin (0-0.5) ng/ml COVID-19 Eval Order SARS-CoV-2 (PCR) (Negative) Influenza Type A (PCR) (Neg) Influenza Type B (PCR) (Neg) RSV (RT-PCR) (Neg) 10/22/20 10/22/20 10/22/20 Range/Units 20:49 20:49 20:59 WBC (4.8-10.8) K/uL RBC (4.7-6.1) M/uL Hgb (14.0-18.0) g/dL Hct (42-52) % MCV (80-100) fL MCH (25-34) pg MCHC (32-36) g/dL RDW Std Deviation (36.4-46.3) fL RDW Coeff of Reilly (11.5-14.5) % Plt Count (130-400) K/uL MPV (7.4-10.4) fL Immature Gran % (Auto) % Neut % (Auto) % Lymph % (Auto) % [place] % (Auto) % Eos % (Auto) % Baso % (Auto) % Neut # (Auto) (1.4-6.5) K/uL Lymph # (Auto) (1.2-3.4) K/uL [place] # (Auto) (0.11-0.59) K/uL Eos # (Auto) (0-0.5) K/uL Baso # (Auto) (0-0.2) K/uL Immature Gran # (Auto) (0.00-0.02) K/uL PT (9.0-12.0) Seconds INR (0.9-1.1) APTT (21.0-31.0) Seconds PTT Ratio VBG pH 7.36 (7.36-7.41) VBG pCO2 49 (38-50) mmHg VBG pO2 33 mmHg VBG HCO3 27 mmol/L VBG O2 Saturation 60.6 % VBG Base Excess 1.3 mEq/L Carboxyhemoglobin % THgb Barometric Pressure 736.0 mm/Hg Sodium (136-145) mmol/L Potassium (3.5-5.1) mmol/L Chloride (98-107) mmol/L Carbon Dioxide (21-32) mmol/L Anion Gap (3-11) BUN (7-18) mg/dl Creatinine (0.6-1.4) mg/dl Est Cr Clr Drug Dosing ml/min Est GFR ( Amer) Est GFR (Non-Af Amer) BUN/Creatinine Ratio (10-20) Glucose (70-99) mg/dl Lactate 1.6 (0.4-2.0) mmol/L Calcium (8.5-10.1) mg/dl Magnesium (1.8-2.4) mg/dl Total Bilirubin (0.2-1) mg/dl AST (15-37) U/L ALT (12-78) U/L Alkaline Phosphatase (45-117) U/L Troponin I (0-0.045) ng/ml Total Protein (6.4-8.2) gm/dl Albumin (3.4-5.0) gm/dl Globulin (2.5-4.0) gm/dl Albumin/Globulin Ratio (0.9-2) Procalcitonin 0.35 (0-0.5) ng/ml COVID-19 Eval Order SARS-CoV-2 (PCR) (Negative) Influenza Type A (PCR) (Neg) Influenza Type B (PCR) (Neg) RSV (RT-PCR) (Neg) 10/22/20 10/22/20 10/22/20 Range/Units 20:59 21:17 21:17 WBC (4.8-10.8) K/uL RBC (4.7-6.1) M/uL Hgb (14.0-18.0) g/dL Hct (42-52) % MCV (80-100) fL MCH (25-34) pg MCHC (32-36) g/dL RDW Std Deviation (36.4-46.3) fL RDW Coeff of Reilly (11.5-14.5) % Plt Count (130-400) K/uL MPV (7.4-10.4) fL Immature Gran % (Auto) % Neut % (Auto) % Lymph % (Auto) % [place] % (Auto) % Eos % (Auto) % Baso % (Auto) % Neut # (Auto) (1.4-6.5) K/uL Lymph # (Auto) (1.2-3.4) K/uL [place] # (Auto) (0.11-0.59) K/uL Eos # (Auto) (0-0.5) K/uL Baso # (Auto) (0-0.2) K/uL Immature Gran # (Auto) (0.00-0.02) K/uL PT (9.0-12.0) Seconds INR (0.9-1.1) APTT (21.0-31.0) Seconds PTT Ratio VBG pH (7.36-7.41) VBG pCO2 (38-50) mmHg VBG pO2 mmHg VBG HCO3 mmol/L VBG O2 Saturation % VBG Base Excess mEq/L Carboxyhemoglobin 0.0 % THgb Barometric Pressure mm/Hg Sodium (136-145) mmol/L Potassium (3.5-5.1) mmol/L Chloride (98-107) mmol/L Carbon Dioxide (21-32) mmol/L Anion Gap (3-11) BUN (7-18) mg/dl Creatinine (0.6-1.4) mg/dl Est Cr Clr Drug Dosing ml/min Est GFR ( Amer) Est GFR (Non-Af Amer) BUN/Creatinine Ratio (10-20) Glucose (70-99) mg/dl Lactate (0.4-2.0) mmol/L Calcium (8.5-10.1) mg/dl Magnesium (1.8-2.4) mg/dl Total Bilirubin (0.2-1) mg/dl AST (15-37) U/L ALT (12-78) U/L Alkaline Phosphatase (45-117) U/L Troponin I (0-0.045) ng/ml Total Protein (6.4-8.2) gm/dl Albumin (3.4-5.0) gm/dl Globulin (2.5-4.0) gm/dl Albumin/Globulin Ratio (0.9-2) Procalcitonin (0-0.5) ng/ml COVID-19 Eval Order CovFluRsv at [facility] SARS-CoV-2 (PCR) NEGATIVE (Negative) Influenza Type A (PCR) Negative (Neg) Influenza Type B (PCR) Negative (Neg) RSV (RT-PCR) Negative (Neg) PG Care Time/CCT Total # of Minutes Spent Total Time Spent with Patient: Total time spent is greater than 50% in coordination of care (as documented) at patient's floor/unit and/or counseling patient: Coding Level of Care Code 41670 OBS Care - Level 3 Diagnoses Abnormal liver function tests R94.5 Pain R52 Dementia F03.90 Alzheimer's disease onset: unspecified onset Dementia behavioral disturbance: without behavioral disturbance Hypertension I10 Hypertension type: essential hypertension GERD (gastroesophageal reflux disease) K21.9 Esophagitis presence: esophagitis presence not specified Anxiety F41.9 CKD (chronic kidney disease) stage 3, GFR 30-59 ml/min N18.3 Mild obstructive sleep apnea G47.33 (1) Dementia Alzheimer's disease onset: unspecified onset Dementia behavioral disturbance: without behavioral disturbance (2) Hypertension Hypertension type: essential hypertension Qualified Code(s): I10 - Essential (primary) hypertension (3) GERD (gastroesophageal reflux disease) Esophagitis presence: esophagitis presence not specified Qualified Code(s): K21.9 - Gastro-esophageal reflux disease without esophagitis
[2020-10-23 03:06] LABS: Hepatitis B Surface Antigen Neg (Neg)
[2020-10-23 03:35] LABS: Hepatitis C IgG 13Yrs+Old_Rflx Neg (Neg)
[2020-10-23 05:03] LABS: Appearance Urine Clear (Clear); Bacteria Urine Automated Negative (Negative); Bilirubin Urine Negative (Negative); Blood Urine Negative (Negative); Cast Urine Automated 0 /lpf (0-5); Color Urine Yellow; Glucose Urine UA Negative (Negative); Ketones Urine Negative (Negative); Leukocyte Esterase Urine 1+ (Negative); Nitrite Urine Negative (Negative); Protein Urine Negative (Negative); RBC Urine Automated 0-4 /hpf (0-4); Specific Gravity Urine 1.011 (1.000-1.030); Urobilinogen Urine Negative (Negative)
--- NOTE | 2020-10-23 07:18 | CT Scan Report ---
CERVICAL SPINE CT CT DOSE: 947.69 mGy.cm HISTORY: Neck pain. Headache onset 3 hrs ago TECHNIQUE: Multiaxial CT images of the cervical spine were performed and reformatted in the sagittal and coronal plane without the use of contrast. A dose lowering technique was utilized adhering to th e principles of ALARA. COMPARISON: Cervical spine CT 09/19/2019. FINDINGS: No fractures. Prevertebral soft tissues and the C1-C2 interval are intact. No pneumothorax. Prior internal fixation of an old, healed odontoid fracture. C4-C6 fused vertebral bodies. C3-C5 fus ed facets. Moderate central canal narrowing from C3 through C5. There is mild anterolisthesis of C2 o n C3 and C3 on C4. This is likely chronic. IMPRESSION: No fractures within the cervical spine. Degenerative changes as described above. ACT 112: Negative or not required by law. Electronically signed by: Tim Quezada M.D. 10/23/2020 7:17 AM
--- NOTE | 2020-10-23 07:25 | CT Scan Report ---
CT OF THE HEAD WITHOUT CONTRAST CLINICAL HISTORY: rajan onset 3 hrs ago COMPARISON STUDY: Head CT July 23, 2020. TECHNIQUE: Helical axial images of the head were obtained without IV contrast. Automated exposure con trol was utilized for the study. A dose lowering technique was utilized adhering to the principles o f ALARA. FINDINGS: No acute intracranial hemorrhage, midline shift or mass effect is present. Ventricular syst em is normal. Basilar cisterns are patent. White matter hypodensity suggests small vessel disease. Th ere are no findings to suggest acute dural sinus thrombosis or acute territorial infarct. Prominence of the extra-axial spaces is unchanged and due to atrophy. The appearance of the brain is similar to prior exam. There is no calvarial fracture. Visualized portions of the sinuses and mastoid air cells are clear. IMPRESSION: No acute intracranial findings. ACT 112: Negative or not required by law. Electronically signed by: Donny Hu M.D. 10/23/2020 7:24 AM
--- NOTE | 2020-10-23 07:38 | Ultrasound Report ---
ABDOMINAL ULTRASOUND, RIGHT UPPER QUADRANT HISTORY: nausea syncope. COMPARISON: Abdomen and pelvis CT 03/27/2020. FINDINGS: Pancreas: The pancreatic tail is obscured by overlying bowel gas. The remaining portions of the pancr eas are within normal limits. Liver: Unremarkable. Gallbladder: The gallbladder is surgically absent. CBD: 4.4 mm. Right kidney: No hydronephrosis. IMPRESSION: No significant abnormality identified within the right upper quadrant. Prior cholecystectomy. ACT 112: Negative or not required by law. Electronically signed by: Tim Quezada M.D. 10/23/2020 7:37 AM
--- NOTE | 2020-10-23 07:53 | XRay Report ---
XR chest 1V portable HISTORY: SEPSIS COMPARISON: Chest 05/23/2019. FINDINGS: No pneumothorax. No pleural effusions. The heart is normal in size. No new focal lung conso lidations to suggest pneumonia. No evidence for pulmonary edema. Chronic elevation of the right hemid iaphragm, unchanged. There is a right shoulder prosthesis. IMPRESSION: No significant change compared to the prior study. No acute process. ACT 112: Negative or not required by law. Electronically signed by: Tim Quezada M.D. 10/23/2020 7:52 AM
[2020-10-23] MEDS ORDERED: PNEUMOCOCCAL ADMINISTRATION CHARGE ONE (08:00)
[2020-10-23] MEDS ORDERED: PNEUMOCOCCAL POLYSACCHARIDES 25 MCG/0.5 ML VIAL/SYR IM ONE (08:00)
--- NOTE | 2020-10-23 08:29 | Ultrasound Report ---
BILATERAL LOWER EXTREMITY VENOUS DOPPLER HISTORY: painful calf right COMPARISON STUDY: None. FINDINGS: There is normal compressibility, flow, and augmentation within the bilateral lower extremit y deep venous systems. There is a small popliteal cyst on the right. IMPRESSION: No DVT within the right or left lower extremity. ACT 112: Negative or not required by law. Electronically signed by: Tim Quezada M.D. 10/23/2020 8:28 AM
[2020-10-23] MEDS ORDERED: FELODIPINE 5 MG TABCR PO SCH (09:00)
[2020-10-23] MEDS ORDERED: ENOXAPARIN INJ 30 MG/0.3 ML SYR SQ SCH (09:00)
[2020-10-23] MEDS: LIDOCAINE 5% 1 PATCH TD SCH (09:44)
[2020-10-23] MEDS: CITALOPRAM 40 MG TAB PO SCH (09:45)
[2020-10-23] MEDS: FLUTICASONE PROPIONATE NA SPR 16 GM BTL SCH ×2 (09:45→21:00)
[2020-10-23] MEDS: PANTOprazole 40 MG TAB PO SCH (09:46)
[2020-10-23] MEDS: DONEPEZIL HCL 10 MG TAB PO SCH (09:47)
[2020-10-23 13:35] LABS: BUN Creatinine Ratio 14.7 (10-20); Blood Urea Nitrogen 19 mg/dl (7-18); Calcium 8.7 mg/dl (8.5-10.1); Carbon Dioxide 30 mmol/L (21-32); Chloride 103 mmol/L (98-107); Creatinine Clr Calc Pharmacy 41.5 ml/min; Est GFR (African American) 58.1; Est GFR (Non-African American) 50.1; Glucose 131 mg/dl (70-99); Potassium 3.9 mmol/L (3.5-5.1); Sodium 136 mmol/L (136-145)
[2020-10-23 13:47] LABS: Troponin I < 0.015 ng/ml (0-0.045)
--- NOTE | 2020-10-23 14:19 | Electrocardiogram Report ---
Test Reason : Blood Pressure : / mmHG Vent. Rate : 114 BPM Atrial Rate : 375 BPM P-R Int : 000 ms QRS Dur : 126 ms QT Int : 302 ms P-R-T Axes : -88 -54 081 degrees QTc Int : 416 ms Atrial flutter with variable A-V block Right bundle branch block Left anterior fascicular block Bifascicular block Minimal voltage criteria for LVH, may be normal variant Abnormal ECG When compared with ECG of 22-OCT-2020 20:19, (unconfirmed) Atrial flutter is now Present Confirmed by Khang Pederson ([id number]) on 10/23/2020 2:18:48 PM Referred By: REFERRED SELF Confirmed By:Khang Pederson
--- NOTE | 2020-10-23 14:27 | Electrocardiogram Report ---
Test Reason : Blood Pressure : / mmHG Vent. Rate : 100 BPM Atrial Rate : 278 BPM P-R Int : 000 ms QRS Dur : 126 ms QT Int : 334 ms P-R-T Axes : 269 -52 045 degrees QTc Int : 430 ms Atrial flutter with variable A-V block Right bundle branch block Left anterior fascicular block Bifascicular block Abnormal ECG When compared with ECG of 22-OCT-2020 20:20, (unconfirmed) No significant change Confirmed by Khang Pederson ([id number]) on 10/23/2020 2:27:19 PM Referred By: REFERRED SELF Confirmed By:Khang Pederson
--- NOTE | 2020-10-23 15:37 | Cardiology Consultation ---
Date of Consultation October 23, 2020 Assessment & Plan (1) Atrial flutter: He presented here in atrial flutter on October 22, 2020, his heart rate was elevated but he was unaware of it. I do not believe he has a prior history of atrial flutter, at least based on prior electrocardiograms (although I do not see any from this year or the calendar year 2019) that is a new finding. Based on his heart rate this likely occurred between October 02, 2020 and October 22, 2020. It is therefore probably of recent onset. Based on his [id number] score he should be on an anticoagulant. He does have some relative contraindications, 1 being falling although normally that does not preclude anticoagulation. He did have gastritis but did not have GI bleeding, again this is a relative contraindication but does not preclude use of an anticoagulant. He is reported to have chronic kidney disease but his creatinine clearance is acceptable for anticoagulation, especially with Eliquis. I would recommend instituting Eliquis, based on his weight and kidney function his dose will be 5 mg twice a day. In addition we need rate control, as an outpatient he is not on AV kash blocking medications, here he is on Plendil I believe for high blood pressure, but that does not have AV kash blocking properties. Although his heart rate is not excessive I think it would be beneficial to provide some degree of rate control. I am going to start beta-blockade. His blood pressure is not elevated generally so we will start with a low dose. (2) Mild obstructive sleep apnea: He has sleep apnea and uses CPAP, sleep apnea could predispose him to atrial arrhythmias although that is not relevant to his treatment. (3) Fall: He has had a relatively recent fall which is attributed to tripping, it is possible this represents transition from 1 rhythm to another. If falling becomes an issue we should try to document his rhythm even though he does not recall being lightheaded or dizzy. Since he falls infrequently (despite hitting his head on the last occasion) I think we should use anticoagulation. (4) Hypertension: He has high blood pressure but his blood pressure is relatively well controlled on Plendil. I am going to add a beta-jos ej, if his blood pressure drops we can always decrease or stop his Plendil. History of Present Illness Reason for Consultation: Atrial flutter Attending Physician: Joseph Rodriguez MD History of Present Illness This is an 89-year-old male who has dementia and is a poor historian, he does have a history of hypertension, chronic kidney disease, dyslipidemia (which is not treated due to age), impaired fasting blood sugar and sleep apnea for which he is on CPAP. He does have a history of a gastric ulcer and he had an EGD April 01, 2020 where gastritis was identified. He was admitted late in the evening on October 22, 2020 with complaints of a headache as well as nausea and vomiting several days prior. An incidental finding I believe was identification of atrial flutter on electrocardiography. At the time of my evaluation he was unaware of his cardiac rhythm. His only complaint involved his left neck and left shoulder. He does not recall feeling palpitations, he has not had chest discomfort, shortness of breath, orthopnea or peripheral edema. He has no awareness of an elevated heart rate. Allergies Allergy/AdvReac Type Severity Reaction Status Date / Time vancomycin Allergy Intermediate LOWER Verified 10/02/20 10:57 EXTREMITY SWELLING, FEVER Sulfa (Sulfonamide Allergy Mild Rash Verified 10/02/20 10:57 Antibiotics) gabapentin AdvReac Mild drowsy,conf Verified 10/02/20 10:57 used Home Medications Medication Instructions Recorded Confirmed Type cranberry 500 mg capsule 1,000 mg PO QAM 05/31/19 10/22/20 History donepezil 23 mg tablet 23 mg PO DAILY #90 tab 04/18/20 10/22/20 Rx fluticasone propionate 50 1 spray INTRANASAL BID #8.5 g 07/25/20 10/22/20 Rx mcg/actuation nasal spray,suspension citalopram 40 mg tablet 40 mg PO QAM #90 tab 08/26/20 10/22/20 Rx felodipine 5 mg tablet,extended 5 mg PO QAM #90 tab 08/26/20 10/22/20 Rx release 24 hr omeprazole 40 mg capsule,delayed 40 mg PO DAILY #90 cap 09/10/20 10/22/20 Rx release Patient History Medical History Anxiety 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 BPH (benign prostatic hyperplasia) Cervical facet joint syndrome Cervical radicular pain Cervical spinal stenosis Left C7 and 8 paresthesias CKD (chronic kidney disease) stage 3, GFR 30-59 ml/min Dyslipidemia GERD (gastroesophageal reflux disease) CONTROLLED Hearing difficulty History of gastric ulcer REMOTE (PER RECORDS) History of kidney stones Hypertension 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 Myofascial pain Nocturnal hypoxemia Occipital neuralgia of left side Osteoarthritis Surgical History H/O colonoscopy (06/2013) History of cystoscopy History of difficult intubation CHOLECYSTECTOMY= 01/11/14= GLIDESCOPE #4 (2/2 DECREASED CERVICAL ROM) BUT HAD GRADE VIEW 1, MAC 4 WITH ANKLE SURGERY 11/09/14 PER [facility] RECORDS History of esophagogastroduodenoscopy (EGD) (09/2019) History of shoulder surgery Rt shoulder - 09/22/18 [facility] History of total knee replacement B/L WITH REVISIONS; LEFT TKA REVISION= 05/13/17= SAB X 2 ATTEMPTS + PNB AT [facility] Hx of cervical spine surgery Hx of total ankle replacement RIGHT S/P cholecystectomy Family History Son Family history of diabetes mellitus Other No family history of adverse response to anesthesia No pertinent family history Denies family history of Ovarian cancer Prostate cancer Myocardial infarction Breast cancer Colorectal cancer Social History Smoking Status: Never smoker Second Hand Exposure: No; Hx Alcohol Use: No Hx Substance Use: No Preferred Language: Nepalese Communication Ability: Effective Visual Impairment: No Limitations Architectural Model Maker Required: No Beliefs That Will Affect Care: None marital status: Current Living Situation: Spouse current occupational status: 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 HEENT: Unremarkable Neck: No jugular venous distention, carotid pulses are irregular but otherwise normal and equal bilaterally without bruits. Pulmonary: Clear to auscultation bilaterally. Cardiac: Irregular rhythm with no murmur, gallop or rub. Abdomen: Soft, nontender with normal bowel sounds. Extremities: No edema. Distal pulses intact. Neurologic: No focal findings. Gait is steady. Skin: No rash, ecchymoses or petechiae. Results & Data ([facility]) Vital Signs (Past 12 Hours) Vital Signs Temp Pulse Pulse Resp BP Pulse Ox 10/23/20 15:06 74 10/23/20 11:21 36.3 C L 73 20 148/75 H 97 10/23/20 07:33 76 10/23/20 07:08 36.6 C 72 20 144/75 H 95 Laboratory Results Cardiac Enzymes 10/22/20 10/23/20 Range/Units 20:49 12:46 AST 119 H (15-37) U/L Troponin I < 0.015 < 0.015 (0-0.045) ng/ml Coagulation 10/22/20 Range/Units 20:49 PT 10.9 (9.0-12.0) Seconds APTT 24.0 (21.0-31.0) Seconds CBC 10/22/20 Range/Units 20:49 WBC 3.89 L (4.8-10.8) K/uL RBC 4.40 L (4.7-6.1) M/uL Hgb 12.8 L (14.0-18.0) g/dL Hct 39.1 L (42-52) % Plt Count 281 (130-400) K/uL Neut # (Auto) 3.45 (1.4-6.5) K/uL Lymph # (Auto) 0.26 L (1.2-3.4) K/uL [place] # (Auto) 0.18 (0.11-0.59) K/uL Eos # (Auto) 0.00 (0-0.5) K/uL Baso # (Auto) 0.00 (0-0.2) K/uL Comprehensive Metabolic Panel 10/22/20 10/23/20 Range/Units 20:49 12:46 Sodium 137 136 (136-145) mmol/L Potassium 4.6 3.9 D (3.5-5.1) mmol/L Chloride 105 103 (98-107) mmol/L Carbon Dioxide 27 30 (21-32) mmol/L BUN 20 H 19 H (7-18) mg/dl Creatinine 1.47 H 1.27 (0.6-1.4) mg/dl Glucose 146 H 131 H (70-99) mg/dl Calcium 9.1 8.7 (8.5-10.1) mg/dl AST 119 H (15-37) U/L ALT 106 H (12-78) U/L Alkaline Phosphatase 218 H (45-117) U/L Total Protein 6.5 (6.4-8.2) gm/dl Albumin 3.3 L (3.4-5.0) gm/dl Intake and Output 10/23/20 10/23/20 10/23/20 06:59 14:59 22:59 Intake Total 100 / 100 1300 / 1300 Output Total 175 / 175 950 / 950 Balance -75 / -75 350 / 350 Intake: IV 1000 / 1000 Lr 1,000 ml @ 100 mls/hr IV . 1000 / 1000 Q10H [facility] Rx#:[id number] Oral 100 / 100 300 / 300 Output: Urine 175 / 175 950 / 950 Other: Weight 83.2 kg Weight Measurement Method Standing Scale Diagnostic Findings An electrocardiogram was done on presentation October 22, 2020 at 2020, this showed atrial flutter with a variable but rapid ventricular response of 114 bpm. He had left anterior fascicular block and right bundle branch block which is longstanding. His prior electrocardiogram in this chart was from July 26, 2019 and showed sinus rhythm with the same conduction abnormality. A repeat electrocardiogram October 22, 2020 at 2332 was virtually identical. PG Care Time/CCT Total # of Minutes Spent Total Time Spent with Patient: Total time spent is greater than 50% in coordination of care (as documented) at patient's floor/unit and/or counseling patient: Coding Level of Care Code 50776 Initial Inpt Care Lvl 3 Diagnoses Atrial flutter I48.92 Atrial flutter type: unspecified Mild obstructive sleep apnea G47.33 Fall W19.XXXA Hypertension I10 Hypertension type: essential hypertension (1) Atrial flutter Atrial flutter type: unspecified Qualified Code(s): I48.92 - Unspecified atrial flutter (2) Hypertension Hypertension type: essential hypertension Qualified Code(s): I10 - Essential (primary) hypertension
--- NOTE | 2020-10-23 17:24 | Hospitalist Progress Note ---
Date of Service October 23, 2020 Assessment & Plan (1) Chills: Family feels patient's initial complaint with chills and weakness at home. His initial evaluation including Covid testing other viral etiologies are unremarkable. Viral etiology could be explained because associate liver functio n testing abnormalities his current hepatitis B and C are negative pending hepatitis A. We can add a Monospot at this time but with an abnormal urinalysis we will also do a urine culture covering with Rocephin until the culture results are back (2) Atrial flutter: On presentation rate control is variable seen by cardiology initiating beta-jose j and Eliquis therapy echocardiogram is pending (3) Abnormal liver function tests: Elevated AST, ALT, AP. Liver US unremarkable -non detected Acetaminophen level - patient states he does not routinely take Tylenol, -Check Hepatitis panel -Repeat LFTs (4) Pain: Patient with chronic, ongoing left sided pain following a fall from a tractor. -Tylenol as needed -Heating pad -Lidoderm (5) Dementia: Chronic. Patient with memory deficit -Continue Aricept 10mg po daily (6) Hypertension: Blood pressure stable Patient will be on beta-jose j therapy for atrial fibrillation/flutter rate control (7) GERD (gastroesophageal reflux disease): Chronic. Stable -Continue Protonix 40mg po daily (8) Anxiety: Chronic. Stable -Continue Celexa (9) CKD (chronic kidney disease) stage 3, GFR 30-59 ml/min: BUN and Cr slightly above baseline (10) Mild obstructive sleep apnea: Chronic. Patient reports being compliant with CPAP at home. He does not recall his setting -CPAP qHS, titrate as needed F/E/N -LR at 100mL/hr x 2 liters, monitor electrolytes, Ppx - Lovenox 30 Code - DNR/DNI Dispo - Observation to medical Admission and Anticipated Discharge Date Admission Date: October 23, 2020 Subjective pt feels much improved after hydration has new onset aflutter, and has abnormal ua and was having chills at home, his abnormal LFT's are improving. Review of Systems Review of Systems: Mild distress and fatigue Chronic headache but now blurry or double vision no speech or swallowing issues no chest pain, pressure or sensation of palpitations no shortness of breath, cough or wheezes no abdominal pain, nausea or vomiting, diarrhea or constipation no dysuria, hematuria or frequency Chronic left neck and shoulder pain due to previous injury no back pain, CVA tenderness or radicular pain no bruising, bleeding or rashes no focal signs of weakness or numbness or altered sensation no complaints of anxiety or depression.. Physical Exam Physical Exam: The patient appeared well nourished and normally developed. Vital signs as documented. Head exam is normocephalic atraumatic no scleral icterus Neck is without JVD, thyromegaly, or carotid bruits. Lungs are clear to auscultation, no focal loss of breath sounds Cardiac exam, irregular rate controlled rhythm with systolic ejection murmur Abdominal exam reveals normal bowel sounds, soft non tender, no masses Extremities his left upper extremity is mildly atrophic he is tender to movement Neurologic exam is alert and oriented, his left upper extremity is weak in 2 strength compared to the right from previous injury Skin is without bruises or rashes Psychologically is without concerns for anxiety or depression. Results & Data Results & Data ([facility]) Vital Signs (Past 12 Hours) Vital Signs Temp Pulse Pulse Resp BP Pulse Ox 10/23/20 15:48 97.7 F 94 H 18 133/70 94 10/23/20 15:06 74 10/23/20 11:21 97.3 F L 73 20 148/75 H 97 10/23/20 07:33 76 10/23/20 07:08 97.9 F 72 20 144/75 H 95 PG Care Time/CCT Total # of Minutes Spent Total Time Spent with Patient: Total time spent is greater than 50% in coordination of care (as documented) at patient's floor/unit and/or counseling patient: Coding Level of Care Code 82370 Subseq Hosp Care Lvl 3 Diagnoses Chills R68.83 Atrial flutter I48.92 Atrial flutter type: unspecified Abnormal liver function tests R94.5 Pain R52 Dementia F03.90 Alzheimer's disease onset: unspecified onset Dementia behavioral disturbance: without behavioral disturbance Hypertension I10 Hypertension type: essential hypertension GERD (gastroesophageal reflux disease) K21.9 Esophagitis presence: esophagitis presence not specified Anxiety F41.9 CKD (chronic kidney disease) stage 3, GFR 30-59 ml/min N18.3 Mild obstructive sleep apnea G47.33 (1) Dementia Alzheimer's disease onset: unspecified onset Dementia behavioral disturbance: without behavioral disturbance (2) Hypertension Hypertension type: essential hypertension Qualified Code(s): I10 - Essential (primary) hypertension (3) GERD (gastroesophageal reflux disease) Esophagitis presence: esophagitis presence not specified Qualified Code(s): K21.9 - Gastro-esophageal reflux disease without esophagitis (4) Atrial flutter Atrial flutter type: unspecified Qualified Code(s): I48.92 - Unspecified atrial flutter
[2020-10-23] MEDS ORDERED: METOPROLOL TARTRATE 25 MG TAB PO ONE (17:30)
[2020-10-23] MEDS ORDERED: cefTRIAXone SODIUM 1,000 MG in DEXTROSE 5% 50 ML IV SCH (18:00)
[2020-10-23] MEDS: APIXABAN 5 MG TABLET PO SCH (21:00)
[2020-10-24 07:09] LABS: Basophils # (auto) 0.01 K/uL (0-0.2); Basophils % (auto) 0.3 %; Eosinophils # (auto) 0.01 K/uL (0-0.5); Eosinophils % (auto) 0.3 %; Hematocrit (blood only) 37.2 % (42-52); Hemoglobin 12.1 g/dL (14.0-18.0); Lymphocytes # (auto) 0.82 K/uL (1.2-3.4); Lymphocytes % (auto) 25.1 %; Mean Corpuscular Hemoglobin 29.1 pg (25-34); Mean Corpuscular Hgb Conc 32.5 g/dL (32-36); Mean Corpuscular Volume 89.4 fL (80-100); Monocytes # (auto) 0.25 K/uL (0.11-0.59); Monocytes % (auto) 7.6 %; Neutrophils # (auto) 2.18 K/uL (1.4-6.5); Neutrophils % (auto) 66.7 %; Platelet Count 192 K/uL (130-400); RDW Coefficient of Variation 14.8 % (11.5-14.5); RDW Standard Deviation 47.9 fL (36.4-46.3); Red Blood Count 4.16 M/uL (4.7-6.1); White Blood Count 3.27 K/uL (4.8-10.8)
[2020-10-24 07:35] LABS: Albumin Level 2.8 gm/dl (3.4-5.0); BUN Creatinine Ratio 14.2 (10-20); Bilirubin Direct 0.2 mg/dl (0-0.2); Calcium 9.3 mg/dl (8.5-10.1); Creatinine Clr Calc Pharmacy 40.6 ml/min; Est GFR (African American) 56.5; Est GFR (Non-African American) 48.7; Potassium 4.4 mmol/L (3.5-5.1)
[2020-10-24 07:38] LABS: Bilirubin,Total 0.5 mg/dl (0.2-1); Total Protein 6.1 gm/dl (6.4-8.2)
[2020-10-24 07:43] LABS: Monotest Negative (Negative)
[2020-10-24] MEDS: APIXABAN 5 MG TABLET PO SCH ×2 (07:46→15:26)
[2020-10-24] MEDS: DONEPEZIL HCL 10 MG TAB PO SCH (07:47)
[2020-10-24] MEDS: PANTOprazole 40 MG TAB PO SCH (07:47)
[2020-10-24] MEDS: FLUTICASONE PROPIONATE NA SPR 16 GM BTL SCH (07:47)
[2020-10-24] MEDS: CITALOPRAM 40 MG TAB PO SCH (07:47)
[2020-10-24] MEDS: LIDOCAINE 5% 1 PATCH TD SCH (07:48)
[2020-10-24 08:32] LABS: Lyme Ab IgG w/WB Rflx Negative (Negative); Lyme Ab IgM w/WB Rflx Negative (Negative)
[2020-10-24] MEDS ORDERED: METOPROLOL SUCC 50MG EXT REL TAB PO SCH (09:00)
--- NOTE | 2020-10-24 10:53 | XCELERA ---
[id number]
--- NOTE | 2020-10-24 11:32 | Cardiology Progress Note ---
Date of Service October 24, 2020 Assessment & Plan (1) Atrial flutter: He presented here in atrial flutter on October 22, 2020, his heart rate was elevated but he was unaware of it. I do not believe he has a prior history of atrial flutter, at least based on prior electrocardiograms (although I do not see any from this year or the calendar year 2019) that is a new finding. Based on his heart rate this likely occurred between October 02, 2020 and October 22, 2020. It is therefore probably of recent onset although if his heart rate was controlled at those times he could have been in this rhythm. Based on his [id number] score he should be on an anticoagulant. He does have some relative contraindications, one being falling although normally that does not preclude anticoagulation. He did have gastritis but did not have GI bleeding, again this is a relative contraindication but does not preclude use of an anticoagulant. He is reported to have chronic kidney disease but his creatinine clearance is acceptable for anticoagulation, especially with Eliquis. I started Eliquis yesterday, he is tolerating it well today without evidence of bleeding and no side effects. I started metoprolol yesterday and his heart rate has been very well controlled. (2) Mild obstructive sleep apnea: He has sleep apnea and uses CPAP, sleep apnea could predispose him to atrial arrhythmias although that is not relevant to his treatment. (3) Fall: He has had a relatively recent fall which is attributed to tripping, it is possible this represents transition from one rhythm to another. If falling becomes an issue we should try to document his rhythm even though he does not recall being lightheaded or dizzy. Since he falls infrequently (despite hitting his head on the last occasion) I think we should use anticoagulation. (4) Hypertension: He has high blood pressure but his blood pressure is somewhat labile and it tends to be systolic hypertension. With his history of falling I would be cautious about dropping his systolic pressure very much and his diastolic has been good. With his age and his relatively low heart rate I think his pressures are acceptable on his current medications, if his blood pressure drops we can always decrease or stop his Plendil. Admission and Anticipated Discharge Date Admission Date: October 23, 2020 Subjective He is feeling much better today, he has no palpitations, he is not having any difficulty breathing and has no cardiovascular symptoms. He has not been very active. Physical Exam Physical Exam: Constitutional: Alert, cooperative and in no distress. HEENT: Unremarkable Neck: No jugular venous distention, carotid pulses are irregular but otherwise normal and equal bilaterally without bruits. Pulmonary: Clear to auscultation bilaterally. Cardiac: Irregular rhythm with a soft holosystolic murmur at the apex, no gallop or rub. Abdomen: Soft, nontender with normal bowel sounds. Extremities: No edema. Distal pulses intact. Neurologic: No focal findings. Gait was not tested. Skin: No rash, ecchymoses or petechiae. Results & Data ([facility]) Vital Signs (Past 12 Hours) Vital Signs Temp Pulse Pulse Resp BP Pulse Ox 10/24/20 11:02 36.6 C 58 L 20 143/80 H 96 10/24/20 08:00 71 10/24/20 07:36 36.9 C 76 16 150/75 H 93 10/24/20 03:13 36.3 C L 83 18 147/75 H 93 10/24/20 02:15 68 10/24/20 02:08 18 94 Laboratory Results Cardiac Enzymes 10/23/20 10/24/20 Range/Units 12:46 06:55 AST 37 (15-37) U/L Troponin I < 0.015 (0-0.045) ng/ml CBC 10/24/20 Range/Units 06:55 WBC 3.27 L (4.8-10.8) K/uL RBC 4.16 L (4.7-6.1) M/uL Hgb 12.1 L (14.0-18.0) g/dL Hct 37.2 L (42-52) % Plt Count 192 (130-400) K/uL Neut # (Auto) 2.18 (1.4-6.5) K/uL Lymph # (Auto) 0.82 L (1.2-3.4) K/uL [place] # (Auto) 0.25 (0.11-0.59) K/uL Eos # (Auto) 0.01 (0-0.5) K/uL Baso # (Auto) 0.01 (0-0.2) K/uL Comprehensive Metabolic Panel 10/23/20 10/24/20 Range/Units 12:46 06:55 Sodium 136 137 (136-145) mmol/L Potassium 3.9 D 4.4 (3.5-5.1) mmol/L Chloride 103 105 (98-107) mmol/L Carbon Dioxide 30 29 (21-32) mmol/L BUN 19 H 18 (7-18) mg/dl Creatinine 1.27 1.30 (0.6-1.4) mg/dl Glucose 131 H 105 H (70-99) mg/dl Calcium 8.7 9.3 (8.5-10.1) mg/dl Direct Bilirubin 0.2 (0-0.2) mg/dl AST 37 (15-37) U/L ALT 67 (12-78) U/L Alkaline Phosphatase 173 H (45-117) U/L Total Protein 6.1 L (6.4-8.2) gm/dl Albumin 2.8 L (3.4-5.0) gm/dl Intake and Output 10/23/20 10/24/20 10/24/20 22:59 06:59 14:59 Intake Total 665 / 2165 200 / 2165 Output Total 950 / 2926 1026 / 2926 Balance -285 / -761 -826 / -761 Intake: IV 565 / 1565 Lr 1,000 ml @ 100 mls/hr IV . 505 / 1505 Q10H [facility] Rx#:[id number] Rocephin 1,000 mg In D5w 50 ml 60 / 60 @ 100 mls/hr IV Q24H [facility] Rx#: [id number] Oral 100 / 600 200 / 600 Output: Urine 950 / 2925 1025 / 2925 # Bowel Movements Other: Weight 81.9 kg Weight Measurement Method Standing Scale Diagnostic Findings Telemetry: Atrial flutter, rate controlled between 60 and 80 bpm Echocardiogram: Normal left ventricular function, moderate MR, PG Care Time/CCT Total # of Minutes Spent Total Time Spent with Patient: Total time spent is greater than 50% in coordination of care (as documented) at patient's floor/unit and/or counseling patient: Coding Level of Care Code 30281 Subseq Hosp Care Lvl 2 Diagnoses Atrial flutter I48.92 Atrial flutter type: unspecified Mild obstructive sleep apnea G47.33 Fall W19.XXXA Hypertension I10 Hypertension type: essential hypertension (1) Atrial flutter Atrial flutter type: unspecified Qualified Code(s): I48.92 - Unspecified atrial flutter (2) Hypertension Hypertension type: essential hypertension Qualified Code(s): I10 - Essential (primary) hypertension
[2020-10-24 14:22] LABS: Hepatitis A Antibody IgM NON-REACTIVE (NON-REACTIVE); Hepatitis B Core Antibody IgM NON-REACTIVE (NON-REACTIVE)
[2020-10-24] MEDS ORDERED: cefTRIAXone SODIUM 1,000 MG in DEXTROSE 5% 50 ML IV ONE (15:00)
--- NOTE | 2020-10-24 15:01 | Discharge Summary ---
Date of Service October 24, 2020 Admission HPI Per Admitting Provider Serafin Desir is an 89yo C male presenting with left sided pain. Patient reports h/o trauma 2 years ago when he fell off a tractor, injuring his left side. Since then he has had chronic pain and spasm of the muscles of his left neck as well as his LUE and left abdomen, chronic headache. He reports this pain is chronic for years, however, has been worsening over the last few months. He reports frequent muscle spasm in his neck as well as chronic pain and numbness of his left arm. He decided to come to the ER today because he has felt too miserable for too long. Had some nausea with one episode of non-bloody/non-bilious vomiting 2 days ago Subjective fevers at home. Denies CP/palpitations/SOB/cough/dysuria Afebrile, HD stable in ER. Principal Diagnosis atrial flutter. urinary tract infection chronic arm pain Discharge Exam The patient appeared well nourished and normally developed. Mildly demented very spry Vital signs as documented. Head exam is normocephalic atraumatic no scleral icterus Neck is without JVD, thyromegaly, or carotid bruits. Lungs are clear to auscultation, no focal loss of breath sounds Cardiac exam, irregular but rate controlled no murmur Abdominal exam reveals normal bowel sounds, soft non tender, no masses Extremities are nonedematous left arm is mildly atrophic and painful with movement Neurologic exam is alert and oriented, creased left arm strength which is baseline for him Skin is with previous changes from skin biopsy Psychologically is without concerns for anxiety or depression. Concern for some memory impairment Discharge Data Allergies Allergy/AdvReac Type Severity Reaction Status Date / Time vancomycin Allergy Intermediate LOWER Verified 10/02/20 10:57 EXTREMITY SWELLING, FEVER Sulfa (Sulfonamide Allergy Mild Rash Verified 10/02/20 10:57 Antibiotics) gabapentin AdvReac Mild drowsy,conf Verified 10/02/20 10:57 used Consultations 10/22/20 23:49 ED Decision to Admit Stat 10/23/20 13:03 Consult Cardiology Routine Ordered Studies 10/22/20 20:43 CT cervical spine wo con Urgent CT head/brain wo con Urgent 10/22/20 22:57 US gallbladder Urgent 10/23/20 01:39 US venous doppler LE BI Routine Hospital Course (1) Chills: Family feels patient's initial complaint with chills and weakness at home. His initial evaluation including Covid testing other viral etiologies are unremarkable. Viral etiology could be explained because associate liver function testing abnormalities his current hepatitis B and C are negative pending hepatitis A. PT found to have a gram negative uti, given two doses of rocephin and will have home on cipro in order to cover pseudomonas if it results to be that (2) Atrial flutter: On presentation rate control is variable seen by cardiology initiating beta-jose j and Eliquis therapy echocardiogram is pending (3) Abnormal liver function tests: Elevated AST, ALT, AP. Liver US unremarkable -non detected Acetaminophen level - patient states he does not routinely take Tylenol, -Hepatitis AMB are negative hepatitis is signed out and currently awaiting results -Function tests have normalized (4) Pain: Patient with chronic, ongoing left sided pain following a fall from a tractor. -Tylenol as needed -Heating pad -Lidoderm have helped somewhat is given a prescription for this (5) Dementia: Chronic. Patient with memory deficit -Continue Aricept 10mg po daily (6) Hypertension: Blood pressure stable stopping typical home calcium channel jose j Patient will be on beta-jose j therapy for atrial fibrillation/flutter rate control (7) GERD (gastroesophageal reflux disease): Chronic. Stable -Continue Protonix 40mg po daily (8) Anxiety: Chronic. Stable -Continue Celexa (9) CKD (chronic kidney disease) stage 3, GFR 30-59 ml/min: BUN and Cr slightly above baseline (10) Mild obstructive sleep apnea: Chronic. Patient reports being compliant with CPAP at home. He does not recall his setting -CPAP qHS, Code - DNR/DNI Total Time Total Time Spent Total Time Spent (In Minutes): It required greater than 30 minutes to prepare this patient for discharge Discharge Plan Discharge Items Patient Disposition: Home - Home Health Services Reason For Visit: PAIN, ABNORMAL LFT'S Discharge Diagnosis: atrial flutter Activity: Resume your previous activity Non-emergency contact: Primary Care Provider and Neuropsychology Service Director Call non-emergency contact if: your symptoms worsen Follow-up/Referrals: Sally Schaeffer CRNP [Primary Care Provider] - 10/31/20 11:30 am (You have an appt with Dr. Kruse on 10/31 @ 1130. Please arrive 15 minutes prior, if this appt does not fit your schedule, please call [phone] to reschedule. ) Khang Pederson MD [Physician] - 11/01/20 11:00 am (You have an appt with Toro Pederson on 11/01 @ 1100am. Please arrive 15 minutes prior to your appt. If for any reason this appt does not fit your schedule please call [phone] to reschedule. ) Diet: Regular Addtl Attending Provider Instructions: Please start your medication tomorrow 10/25/20. you may use your lidocaine patch as needed You have been diagnosed with a urinary tract infection and will need to complete a course of antibiotics at home also You have been diagnosed with atrial flutter, which is an irregular heart beat, this puts you at risk of having a stroke and so the wharf laborer has prescribed medication to help control your heart rate (metoprolol) and a blood thinner ( apixaban) you will be followed up with Dr Pederson for continued care of this issue Medication Instructions: Your condition is typically treated with an anticoagulant. Anticoagulants will thin your blood to help prevent new clots. * You should take her medication exactly as directed. * Never skip a dose. * Never take a double dose. If you miss a dose, take it as soon as you remember. Call your Primary Care doctor if you experience any of the following: * Swelling or Pain in your leg * Sudden, continuous pain deep in a muscle * Pain that worsens when you are active or when you stand still for a long time * Chest Pain * Sudden Shortness of Breath * Rapid or pounding heart beat * Fainting * Dizziness * Cough with blood or bloody sputum * Sweating more than normal * Bruises * Heavy or uncontrolled bleeding * Blood in your urine, stool or vomit * Black or tarry stools Caring for Your Self at Home: * Avoid sitting, standing or lying down for long periods without moving your legs and feet * When traveling by car, stop to get out and move around at least once every 3 hours * On long airplane, train or bus rides, get up and move around when possible * If you can't get up, wiggle your toes and tighten your calves to keep your blood moving Follow Up: It is important for you to keep your follow up appointments with your medical provider. Pending Studies at Discharge: No Stand-Alone Forms: My [facility], Smoking Cessation Medications and DC Order Prescriptions: New metoprolol succinate 50 mg Tablet Extended Release 24 Hr 50 mg PO QAM Qty: 30 RF: 5 lidocaine 5 % Adhesive Patch,Medicated 1 patch transdermal QAM Qty: 15 RF: 0 Eliquis 5 mg Tablet 5 mg PO BID Qty: 60 RF: 5 ciprofloxacin HCl [Cipro] 500 mg tablet 500 mg PO BID Qty: 10 RF: 0 Continued donepezil 23 mg tablet 23 mg PO DAILY Qty: 90 RF: 3 citalopram 40 mg tablet 40 mg PO QAM Qty: 90 RF: 3 omeprazole 40 mg capsule,delayed release(DR/EC) 40 mg PO DAILY Qty: 90 RF: 3 fluticasone propionate 50 mcg/actuation spray,suspension 1 spray intranasal BID Qty: 8.5 RF: 2 cranberry 500 mg capsule 1,000 mg PO QAM RF: 0 Discontinued felodipine 5 mg tablet extended release 24 hr 5 mg PO QAM Qty: 90 RF: 3 Discharge Orders: Discharge Order (Routine); Ordered 10/24/20 Ordered By: Joseph Rodriguez Admission Data Admit Date/Time: 10/23/20 17:16 Attending Provider: Joseph Rodriguez Admit Provider: Jaye Shah Primary Care Provider: Sally Schaeffer. Other Providers: Jaye Shah ; Khang Pederson Coding Level of Care Code D/C Day Management >30 mins Diagnoses Chills R68.83 Atrial flutter I48.92 Atrial flutter type: unspecified Abnormal liver function tests R94.5 Pain R52 Dementia F03.90 Alzheimer's disease onset: unspecified onset Dementia behavioral disturbance: without behavioral disturbance Hypertension I10 Hypertension type: essential hypertension GERD (gastroesophageal reflux disease) K21.9 Esophagitis presence: esophagitis presence not specified Anxiety F41.9 CKD (chronic kidney disease) stage 3, GFR 30-59 ml/min N18.3 Mild obstructive sleep apnea G47.33
== END 2020-10-24 16:30 | disposition home health service (06) ==
LOC: 2W 20:01 → ED 20:01 → SUATTDRO 10-23 00:35 → 2W 10-23 01:12

== ENCOUNTER 2021-04-14 12:55 | Inpatient (IN) ==
[2021-04-14] MEDS ORDERED: SODIUM CHLORIDE 0.9% 500 ML IV STA (16:40)
[2021-04-14] MEDS ORDERED: ONDANSETRON INJ 2 MG/ML 2 ML VIAL IV STA (16:40)
[2021-04-14] MEDS ORDERED: fentaNYL citrate 100 MCG/2 ML VIAL IV PRN (16:40)
[2021-04-14] MEDS ORDERED: PANTOprazole 40 MG in SYRINGE 0 ML IV ONE (16:41)
[2021-04-14] MEDS ORDERED: FAMOTIDINE 20MG IV PUSH 20 MG/5 ML SYR IV STA (16:41)
[2021-04-14] MEDS ORDERED: cefTRIAXone SODIUM 1,000 MG/50 ML BAG IV STA (16:42)
--- NOTE | 2021-04-14 16:47 | Emergency Department Note ---
Impression & Plan Diverticulitis, Abdominal pain, acute, left lower quadrant, Urinary tract infection ED Provider Note NAME: Makenna SERRANO AGE: 89 SEX: M : 1930 ARRIVES VIA: Walk-In INFORMANT: Patient, ED PROVIDER(S): Ger Tinoco DO CHIEF COMPLAINT: Abdominal pain HPI: The patient is an 89-year-old male [facility] for an evaluation of abdominal pain. The patient was seen in our facility over the weekend. He did have an elevated lipase on Wednesday with outpatient labs done by his primary GI group. He was seen in our facility for similar complaints. At that time his lipase was found to be improved. He was feeling better after he was started on pain medication in the emergency department. He returns emergency department today because of worsening pain and ongoing symptoms. He called his primary GI doctor and was referred to the emergency department for further evaluation. The patient had nausea and some dry heaving. He also notices left lower quadrant abdominal pain which is moderate to severe. He states the pain is worsened with ambulation as well as palpation over the lower abdomen. He has had no fever. He is not been seen by his primary care physician for the symptoms. He called his primary twist packer. ROS: See above HPI for pertinent positives & negatives. A total of 10 systems reviewed and were otherwise negative. PAST MEDICAL HISTORY: See Below PAST SURGICAL HISTORY: See Below FAMILY HISTORY: See Below SOCIAL HISTORY: See Below HOME MEDICATIONS: See Below ALLERGIES: See Below VITALS: See Below PHYSICAL EXAMINATION: GENERAL: Patient is awake alert in no acute distress patient is resting comfortably and showing no signs of anxiety EYES: The conjunctivae are clear. The pupils are round and reactive. EARS, NOSE, MOUTH AND THROAT: The nose is without any evidence of any deformity. NECK: The neck is nontender and supple. RESPIRATORY: Normal respiratory effort is noted there is no evidence of wheezing rhonchi or rales CARDIOVASCULAR: Regular rate and rhythm noted there no murmurs rubs or gallops normal S1 normal S2. GASTROINTESTINAL: The abdomen is mildly distended. There is diffuse tenderness to palpation specifically in the left lower quadrant. No guarding was appreciated. MUSCULOSKELETAL/EXTREMITIES: There is no evidence of gross deformity full range of motion is noted in the hips and shoulders. SKIN: Trace pedal edema was noted bilaterally. Skin was warm and dry. NEUROLOGIC: Patient is awake alert and oriented x3. MEDICAL DECISION MAKING: The patient is an 89-year-old male who presented to the emergency department for an evaluation of abdominal pain. The patient was seen in our facility recently for similar complaints. At that time he was diagnosed with pancreatitis as well as diverticulitis. He was taking all medications as prescribed but returns today because of worsening pain. The patient did call his primary twist packer. I discussed the patient's laboratory and radiographic studies with him. He was treated with IV pain medication IV fluids and IV antibiotics in the emergency department. He continued to have significant pain and at the request of his family member I did discuss his case with the on-call [facility] hospitalist. They will evaluate the patient in the emergency department. He does have improvement of his laboratory studies including his lipase. He was found to have signs of urinary tract infection on urinalysis. Triage Nursing notes reviewed. Prior medical records reviewed Vital Signs: reviewed and remarkable for elevated blood pressure. Differential diagnosis: Etiologies such as appendicitis, diverticulitis, obstruction, inflammatory bowel disease, renal colic, PUD, biliary pathology, pancreatitis, mesenteric ischemia, aortic pathology, infections, genitourinary, UTI, perforated viscus, as well as others were entertained. ER treatment provided: See below Diagnostics interpreted by me: ECG: none Cardiac Monitoring: An order was placed for continuous cardiac monitoring. The monitor shows a rate of 85 bpm with sinus rhythm. Laboratory studies: As stated above and show below. Imaging studies: See below Consultation(s): 1930: I discussed this case with Dr. Shah who is on-call for the [facility] group. They will evaluate the patient in the emergency department for further management and disposition. Past Med/Surg History Medical History Anxiety Atrial flutter DX OCT 2020> ELIQUIS/METOPROLOL 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 BPH (benign prostatic hyperplasia) Cervical facet joint syndrome Cervical radicular pain Cervical spinal stenosis Left C7 and 8 paresthesias Cervicogenic headache CKD (chronic kidney disease) stage 3, GFR 30-59 ml/min follows PCP Dyslipidemia GERD (gastroesophageal reflux disease) CONTROLLED Hearing difficulty History of kidney stones Hypertension Impaired fasting glucose Hgb A1C 6.8 on 04/11/20 Left shoulder pain 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 Myofascial pain Nocturnal hypoxemia Occipital neuralgia of left side Osteoarthritis Surgical History H/O colonoscopy (06/2013) History of cystoscopy History of difficult intubation CHOLECYSTECTOMY= 01/11/14= GLIDESCOPE #4 (2/2 DECREASED CERVICAL ROM) BUT HAD GRADE VIEW 1, MAC 4 WITH ANKLE SURGERY 11/09/14 PER [facility] RECORDS History of esophagogastroduodenoscopy (EGD) (09/2019) History of shoulder surgery Rt shoulder - 09/22/18 [facility] History of total knee replacement B/L WITH REVISIONS; LEFT TKA REVISION= 05/13/17= SAB X 2 ATTEMPTS + PNB AT [facility] Hx of cervical spine surgery ROM LIMITED FROM SIDE TO SIDE Hx of total ankle replacement RIGHT S/P cholecystectomy Squamous cell carcinoma of back resolved Family History Son Family history of diabetes mellitus Other No family history of adverse response to anesthesia No pertinent family history Denies family history of Ovarian cancer Prostate cancer Myocardial infarction Breast cancer Colorectal cancer Social History Smoking Status: Never smoker Second Hand Exposure: No; Do You Dip or Chew Tobacco: No; Tobacco Cessation Education Requested by Patient: No Hx Alcohol Use: No Hx Substance Use: No Preferred Language: [place] Communication Ability: Effective Visual Impairment: No Limitations Motivational Speaker Required: No Beliefs That Will Affect Care: None marital status: Current Living Situation: Spouse Current Living Situation Comment: lives with , family helps current occupational status: 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 Other Information That Helps Us Care for You: No Feels Safe at Home: Yes caffeine: No Seatbelt Use: always Assistive Devices: CPAP, Glasses and Hearing Aid - Right Allergies Allergies Allergy/AdvReac Type Severity Reaction Status Date / Time vancomycin Allergy Intermediate LOWER Verified 04/14/21 16:34 EXTREMITY SWELLING, FEVER Sulfa (Sulfonamide Allergy Mild Rash Verified 04/14/21 16:34 Antibiotics) gabapentin AdvReac Mild drowsy,conf Verified 04/14/21 16:34 used Home Meds Home Medications Medication Instructions Recorded Confirmed cranberry 500 mg capsule 1,000 mg PO QAM 05/31/19 04/14/21 acetaminophen 500 mg capsule 1,000 mg PO Q6H PRN 11/27/20 04/14/21 lidocaine 5 % topical patch 1 patch TRANSDERMAL QAM PRN ea 01/21/21 04/14/21 bumetanide 1 mg tablet 1 mg PO DAILY 04/08/21 04/14/21 hydralazine 25 mg tablet 25 mg PO TID 04/08/21 04/14/21 donepezil 23 mg PO HS 04/12/21 04/14/21 Previous Rx's Medication Instructions Recorded citalopram 40 mg tablet 40 mg PO QAM #90 tab 08/26/20 apixaban 5 mg tablet 5 mg PO BID #180 tab 11/01/20 azelastine 205.5 mcg (0.15 %) 1 spray INTRANASAL BID #30 ml 01/07/21 nasal spray lisinopril 10 mg tablet 10 mg PO DAILY #30 tab 03/03/21 metoprolol succinate 25 mg 25 mg PO DAILY #90 tab 03/27/21 tablet,extended release 24 hr Results & Data (ED) Vital Signs Vital Signs - 24 hr 04/14/21 13:27 04/14/21 16:50 04/14/21 17:12 Temperature 36.4 C L Temperature Source Temporal Artery Scan Pulse Rate 78 71 68 Pulse Rate from SpO2 Sensor 71 Pulse Rhythm Regular Regular Pulse Strength Normal Respiratory Rate 20 22 20 Respiratory Effort / Characteristics Non-Labored Spontaneous Respiratory Depth Normal Respiratory Pattern Regular Blood Pressure 127/68 154/77 H Blood Pressure [Left Arm] Blood Pressure Mean 87 102 Blood Pressure Mean [Left Arm] Blood Pressure Position Sitting Blood Pressure Position [Left Arm] Pulse Oximetry 96 94 96 Oxygen Delivery Method Room Air Room Air Room Air Sepsis Recent Fever Within 48 Hours No Sepsis New/Unexplained Change in Mental Status N/A Sepsis Action Taken by Nursing No Action Required 04/14/21 17:17 04/14/21 17:20 04/14/21 17:30 Temperature Temperature Source Pulse Rate 73 75 Pulse Rate from SpO2 Sensor 75 73 75 Pulse Rhythm Pulse Strength Respiratory Rate 17 17 Respiratory Effort / Characteristics Respiratory Depth Respiratory Pattern Blood Pressure Blood Pressure [Left Arm] Blood Pressure Mean Blood Pressure Mean [Left Arm] Blood Pressure Position Blood Pressure Position [Left Arm] Pulse Oximetry 95 94 94 Oxygen Delivery Method Sepsis Recent Fever Within 48 Hours Sepsis New/Unexplained Change in Mental Status Sepsis Action Taken by Nursing 04/14/21 17:40 04/14/21 17:50 04/14/21 18:00 Temperature Temperature Source Pulse Rate 82 78 78 Pulse Rate from SpO2 Sensor 81 78 77 Pulse Rhythm Pulse Strength Respiratory Rate 20 20 19 Respiratory Effort / Characteristics Respiratory Depth Respiratory Pattern Blood Pressure Blood Pressure [Left Arm] Blood Pressure Mean Blood Pressure Mean [Left Arm] Blood Pressure Position Blood Pressure Position [Left Arm] Pulse Oximetry 95 94 94 Oxygen Delivery Method Sepsis Recent Fever Within 48 Hours Sepsis New/Unexplained Change in Mental Status Sepsis Action Taken by Nursing 04/14/21 18:01 04/14/21 18:10 04/14/21 18:20 Temperature Temperature Source Pulse Rate 75 80 77 Pulse Rate from SpO2 Sensor 74 79 77 Pulse Rhythm Pulse Strength Respiratory Rate 21 19 21 Respiratory Effort / Characteristics Respiratory Depth Respiratory Pattern Blood Pressure 134/71 Blood Pressure [Left Arm] Blood Pressure Mean 92 Blood Pressure Mean [Left Arm] Blood Pressure Position Blood Pressure Position [Left Arm] Pulse Oximetry 94 94 94 Oxygen Delivery Method Sepsis Recent Fever Within 48 Hours Sepsis New/Unexplained Change in Mental Status Sepsis Action Taken by Nursing 04/14/21 18:30 04/14/21 18:45 04/14/21 18:46 Temperature Temperature Source Pulse Rate 75 77 74 Pulse Rate from SpO2 Sensor 73 77 75 Pulse Rhythm Pulse Strength Respiratory Rate 21 22 24 Respiratory Effort / Characteristics Respiratory Depth Respiratory Pattern Blood Pressure 159/85 H Blood Pressure [Left Arm] Blood Pressure Mean 109 Blood Pressure Mean [Left Arm] Blood Pressure Position Blood Pressure Position [Left Arm] Pulse Oximetry 93 95 96 Oxygen Delivery Method Sepsis Recent Fever Within 48 Hours Sepsis New/Unexplained Change in Mental Status Sepsis Action Taken by Nursing 04/14/21 18:50 04/14/21 19:00 04/14/21 19:01 Temperature Temperature Source Pulse Rate 73 71 72 Pulse Rate from SpO2 Sensor 73 72 73 Pulse Rhythm Pulse Strength Respiratory Rate 24 23 22 Respiratory Effort / Characteristics Respiratory Depth Respiratory Pattern Blood Pressure 147/78 H Blood Pressure [Left Arm] Blood Pressure Mean 101 Blood Pressure Mean [Left Arm] Blood Pressure Position Blood Pressure Position [Left Arm] Pulse Oximetry 96 96 96 Oxygen Delivery Method Sepsis Recent Fever Within 48 Hours Sepsis New/Unexplained Change in Mental Status Sepsis Action Taken by Nursing 04/14/21 19:10 04/14/21 19:20 04/14/21 19:30 Temperature Temperature Source Pulse Rate 73 74 75 Pulse Rate from SpO2 Sensor 73 75 76 Pulse Rhythm Pulse Strength Respiratory Rate 24 20 20 Respiratory Effort / Characteristics Respiratory Depth Respiratory Pattern Blood Pressure Blood Pressure [Left Arm] Blood Pressure Mean Blood Pressure Mean [Left Arm] Blood Pressure Position Blood Pressure Position [Left Arm] Pulse Oximetry 95 96 95 Oxygen Delivery Method Sepsis Recent Fever Within 48 Hours Sepsis New/Unexplained Change in Mental Status Sepsis Action Taken by Nursing 04/14/21 19:40 04/14/21 19:50 04/14/21 20:00 Temperature Temperature Source Pulse Rate 77 79 76 Pulse Rate from SpO2 Sensor 77 78 77 Pulse Rhythm Pulse Strength Respiratory Rate 20 20 23 Respiratory Effort / Characteristics Respiratory Depth Respiratory Pattern Blood Pressure Blood Pressure [Left Arm] Blood Pressure Mean Blood Pressure Mean [Left Arm] Blood Pressure Position Blood Pressure Position [Left Arm] Pulse Oximetry 96 95 96 Oxygen Delivery Method Sepsis Recent Fever Within 48 Hours Sepsis New/Unexplained Change in Mental Status Sepsis Action Taken by Nursing 04/14/21 20:01 04/14/21 20:10 04/14/21 20:20 Temperature Temperature Source Pulse Rate 81 78 81 Pulse Rate from SpO2 Sensor 82 78 81 Pulse Rhythm Pulse Strength Respiratory Rate 21 24 23 Respiratory Effort / Characteristics Respiratory Depth Respiratory Pattern Blood Pressure 154/87 H Blood Pressure [Left Arm] Blood Pressure Mean 109 Blood Pressure Mean [Left Arm] Blood Pressure Position Blood Pressure Position [Left Arm] Pulse Oximetry 96 96 96 Oxygen Delivery Method Sepsis Recent Fever Within 48 Hours Sepsis New/Unexplained Change in Mental Status Sepsis Action Taken by Nursing 04/14/21 20:30 04/14/21 20:40 04/14/21 20:50 Temperature Temperature Source Pulse Rate 75 78 88 Pulse Rate from SpO2 Sensor 74 74 87 Pulse Rhythm Pulse Strength Respiratory Rate 20 22 20 Respiratory Effort / Characteristics Respiratory Depth Respiratory Pattern Blood Pressure Blood Pressure [Left Arm] Blood Pressure Mean Blood Pressure Mean [Left Arm] Blood Pressure Position Blood Pressure Position [Left Arm] Pulse Oximetry 96 95 94 Oxygen Delivery Method Room Air Sepsis Recent Fever Within 48 Hours Sepsis New/Unexplained Change in Mental Status Sepsis Action Taken by Nursing 04/14/21 21:00 04/14/21 21:01 Temperature Temperature Source Pulse Rate 78 90 Pulse Rate from SpO2 Sensor 78 Pulse Rhythm Pulse Strength Respiratory Rate 23 18 Respiratory Effort / Characteristics Respiratory Depth Respiratory Pattern Blood Pressure 164/87 H 148/88 H Blood Pressure [Left Arm] 164/87 H Blood Pressure Mean 112 108 Blood Pressure Mean [Left Arm] 112 Blood Pressure Position Blood Pressure Position [Left Arm] Lying Pulse Oximetry 97 97 Oxygen Delivery Method Sepsis Recent Fever Within 48 Hours Sepsis New/Unexplained Change in Mental Status Sepsis Action Taken by Group Home Medications Current Medication List: was personally reviewed by me Laboratory Data Attestation: I reviewed the patient's lab results. Result diagrams: 04/14/21 17:01 04/14/21 17:01 Lab Results 04/14/21 04/14/21 04/14/21 Range/Units 17:01 17: 17:01 WBC 3.87 L (4.8-10.8) K/uL RBC 4.31 L (4.7-6.1) M/uL Hgb 13.9 L (14.0-18.0) g/dL Hct 41.9 L (42-52) % MCV 97.2 (80-100) fL MCH 32.3 (25-34) pg MCHC 33.2 (32-36) g/dL RDW Std Deviation 48.2 H (36.4-46.3) fL RDW Coeff of Reilly 13.6 (11.5-14.5) % Plt Count 245 (130-400) K/uL MPV 9.3 (7.4-10.4) fL Immature Gran % (Auto) 0.0 % Neut % (Auto) 61.5 % Lymph % (Auto) 24.3 % Sac % (Auto) 12.1 % Eos % (Auto) 1.3 % Baso % (Auto) 0.8 % Neut # (Auto) 2.38 (1.4-6.5) K/uL Lymph # (Auto) 0.94 L (1.2-3.4) K/uL Sac # (Auto) 0.47 (0.11-0.59) K/uL Eos # (Auto) 0.05 (0-0.5) K/uL Baso # (Auto) 0.03 (0-0.2) K/uL Immature Gran # (Auto) 0.00 (0.00-0.02) K/uL PT 9.8 (9.0-12.0) Seconds INR 1.0 (0.9-1.1) APTT 26.8 (21.0-31.0) Seconds PTT Ratio 1.0 Sodium 140 (136-145) mmol/L Potassium 4.3 (3.5-5.1) mmol/L Chloride 105 (98-107) mmol/L Carbon Dioxide 29 (21-32) mmol/L Anion Gap 6.0 (3-11) BUN 27 H (7-18) mg/dl Creatinine 1.30 (0.6-1.4) mg/dl Est Cr Clr Drug Dosing 40.6 ml/min Est GFR ( Amer) 56.5 ml/min Est GFR (Non-Af Amer) 48.7 ml/min BUN/Creatinine Ratio 20.5 H (10-20) Glucose 117 H (70-99) mg/dl Calcium 9.3 (8.5-10.1) mg/dl Total Bilirubin 0.3 (0.2-1) mg/dl AST 17 (15-37) U/L ALT 33 (12-78) U/L Alkaline Phosphatase 81 (45-117) U/L Total Protein 7.1 (6.4-8.2) gm/dl Albumin 3.4 (3.4-5.0) gm/dl Globulin 3.7 (2.5-4.0) gm/dl Albumin/Globulin Ratio 0.9 (0.9-2) Lipase 267 (73-393) U/L Urine Color Urine Appearance (Clear) Urine pH (4.5-7.5) Ur Specific [place] (1.000-1.030) Urine Protein (Negative) Urine Glucose (UA) (Negative) Urine Ketones (Negative) Urine Blood (Negative) Urine Nitrite (Negative) Urine Bilirubin (Negative) Urine Urobilinogen (Negative) Ur Leukocyte Esterase (Negative) Urine WBC (Auto) (0-5) /hpf Urine RBC (Auto) (0-4) /hpf U Hyaline Cast (Auto) (0-5) /lpf U Epithel Cells (Auto) (0-5) /lpf Urine Bacteria (Auto) (Negative) COVID-19 Eval Order SARS-CoV-2 (PCR) (Negative) 04/14/21 04/14/21 04/14/21 Range/Units 19:50 19:50 20:18 WBC (4.8-10.8) K/uL RBC (4.7-6.1) M/uL Hgb (14.0-18.0) g/dL Hct (42-52) % MCV (80-100) fL MCH (25-34) pg MCHC (32-36) g/dL RDW Std Deviation (36.4-46.3) fL RDW Coeff of Reilly (11.5-14.5) % Plt Count (130-400) K/uL MPV (7.4-10.4) fL Immature Gran % (Auto) % Neut % (Auto) % Lymph % (Auto) % Sac % (Auto) % Eos % (Auto) % Baso % (Auto) % Neut # (Auto) (1.4-6.5) K/uL Lymph # (Auto) (1.2-3.4) K/uL Sac # (Auto) (0.11-0.59) K/uL Eos # (Auto) (0-0.5) K/uL Baso # (Auto) (0-0.2) K/uL Immature Gran # (Auto) (0.00-0.02) K/uL PT (9.0-12.0) Seconds INR (0.9-1.1) APTT (21.0-31.0) Seconds PTT Ratio Sodium (136-145) mmol/L Potassium (3.5-5.1) mmol/L Chloride (98-107) mmol/L Carbon Dioxide (21-32) mmol/L Anion Gap (3-11) BUN (7-18) mg/dl Creatinine (0.6-1.4) mg/dl Est Cr Clr Drug Dosing ml/min Est GFR ( Amer) ml/min Est GFR (Non-Af Amer) ml/min BUN/Creatinine Ratio (10-20) Glucose (70-99) mg/dl Calcium (8.5-10.1) mg/dl Total Bilirubin (0.2-1) mg/dl AST (15-37) U/L ALT (12-78) U/L Alkaline Phosphatase (45-117) U/L Total Protein (6.4-8.2) gm/dl Albumin (3.4-5.0) gm/dl Globulin (2.5-4.0) gm/dl Albumin/Globulin Ratio (0.9-2) Lipase (73-393) U/L Urine Color Yellow Urine Appearance Clear (Clear) Urine pH 5.0 (4.5-7.5) Ur Specific [place] 1.019 (1.000-1.030) Urine Protein Trace H (Negative) Urine Glucose (UA) Negative (Negative) Urine Ketones Negative (Negative) Urine Blood Negative (Negative) Urine Nitrite Negative (Negative) Urine Bilirubin Negative (Negative) Urine Urobilinogen Negative (Negative) Ur Leukocyte Esterase 1+ H (Negative) Urine WBC (Auto) 10-30 H (0-5) /hpf Urine RBC (Auto) 0-4 (0-4) /hpf U Hyaline Cast (Auto) 1-5 (0-5) /lpf U Epithel Cells (Auto) 5-10 H (0-5) /lpf Urine Bacteria (Auto) Negative (Negative) COVID-19 Eval Order Covid19 at [facility] SARS-CoV-2 (PCR) NEGATIVE (Negative) Administered Medications Discontinued Medications Fentanyl Citrate (Fentanyl Citrate 100 Mcg/2 Ml Vial) 50 mcg IV Q15M PRN PRN Reason: Pain Stop: 04/28/21 16:39 Last Admin: 04/14/21 17:03 Dose: 50 mcg Documented by: [id number] Sodium Chloride (Nss) 500 mls @ 999 mls/hr IV .Q31M STA Stop: 04/14/21 17:10 Last Infusion: 04/14/21 17:31 Dose: 0 mls/hr Documented by: [id number] Admin: 04/14/21 16:56 Dose: 999 mls/hr Documented by: [id number] Famotidine (Pepcid 20mg Iv Push) 20 mg in 5 mls @ 2.5 mls/min IV NOW STA Stop: 04/14/21 16:42 Last Admin: 04/14/21 17:01 Dose: 2.5 mls/min Documented by: [id number] Pantoprazole Sodium 40 mg/ (Syringe) 10 mls @ 5 mls/min IV NOW ONE Stop: 04/14/21 16:42 Last Admin: 04/14/21 18:36 Dose: 5 mls/min Documented by: [id number] Ceftriaxone Sodium (Rocephin) 1,000 mg in 50 mls @ 100 mls/hr IV NOW STA Stop: 04/14/21 17:11 Last Infusion: 04/14/21 17:36 Dose: 0 mls/hr Documented by: [id number] Admin: 04/14/21 17:04 Dose: 100 mls/hr Documented by: [id number] Ondansetron HCl (Ondansetron Inj 2 Mg/Ml 2 Ml Vial) 4 mg IV NOW STA Stop: 04/14/21 16:41 Last Admin: 04/14/21 16:59 Dose: 4 mg Documented by: [id number] Imaging Data Radiologist's Impression: KUB X-Ray 04/14/21 16:40 KUB HISTORY: Acute generalized abdominal pain abd pain COMPARISON: Chest radiograph of same day, CT abdomen pelvis 04/13/2021 FINDINGS: Nonobstructive bowel gas pattern. Cholecystectomy. No urolith identified. No pneumatosis or pneumoperitoneum. Unchanged right hemidiaphra gmatic elevation. Degenerative changes of the spine, pelvis and hips. No acute fracture. IMPRESSION: 1. Nonobstructive bowel gas pattern. 2. No pneumoperitoneum identified. ACT 112: Negative or not required by law. The above report was generated using voice recognition software. It may contain grammatical, syntax or spelling errors. Electronically signed by: Brayden Gonsalez M.D. 04/14/2021 5:44 PM Chest X-Ray 04/14/21 17:32 XR chest 1V portable HISTORY: 89 years-old Male epigastric pain acute epigastric abdominal pain COMPARISON: KUB of same day, CT abdomen pelvis 04/13/2021, chest radiograph 10/22/2020 TECHNIQUE: Portable AP view the chest FINDINGS: Chronic right hemidiaphragmatic elevation. Cardiomediastinal and hilar si lhouettes are within normal limits. Interstitial coarsening of the lung bases suggestive of atelectasis/scarring. No pneumothorax, pleural effusion, airspace consolidation or overt pulmonary edema. Reverse right shoulder total joint arthroplasty. Degenerative changes of the spine and left shoulder. IMPRESSION: Chronic findings as above without acute process. ACT 112: Negative or not required by law. The above report was generated using voice recognition software. It may contain grammatical, syntax or spelling errors. Electronically signed by: Brayden Gonsalez M.D. 04/14/2021 5:45 PM Discharge Plan Visit Data Chief Complaint: Abdominal Pain Stated Complaint: ABD PAIN ED Provider: Ger Tinoco Discharge Problem: Diverticulitis, Abdominal pain, acute, left lower quadrant, Urinary tract infection Patient Disposition: Admitted As Inpatient Discharge Instructions Interventions: ED Discharge Assessment Last Done: 04/14/21 21:57 Discharge Problem: Urinary tract infection Qualifiers: Urinary tract infection type: site unspecified Hematuria presence: without hematuria Qualified Code(s): N39.0 - Urinary tract infection, site not specified
[2021-04-14 17:12] LABS: Basophils # (auto) 0.03 K/uL (0-0.2); Basophils % (auto) 0.8 %; Eosinophils # (auto) 0.05 K/uL (0-0.5); Eosinophils % (auto) 1.3 %; Hematocrit (blood only) 41.9 % (42-52); Hemoglobin 13.9 g/dL (14.0-18.0); Lymphocytes # (auto) 0.94 K/uL (1.2-3.4); Lymphocytes % (auto) 24.3 %; Mean Corpuscular Hemoglobin 32.3 pg (25-34); Mean Corpuscular Hgb Conc 33.2 g/dL (32-36); Mean Corpuscular Volume 97.2 fL (80-100); Mean Platelet Volume 9.3 fL (7.4-10.4); Monocytes # (auto) 0.47 K/uL (0.11-0.59); Monocytes % (auto) 12.1 %; Neutrophils # (auto) 2.38 K/uL (1.4-6.5); Neutrophils % (auto) 61.5 %; Platelet Count 245 K/uL (130-400); RDW Coefficient of Variation 13.6 % (11.5-14.5); RDW Standard Deviation 48.2 fL (36.4-46.3); Red Blood Count 4.31 M/uL (4.7-6.1); White Blood Count 3.87 K/uL (4.8-10.8)
[2021-04-14 17:22] LABS: Partial Thromboplastin Time 26.8 Seconds (21.0-31.0); Prothrombin Time 9.8 Seconds (9.0-12.0)
--- NOTE | 2021-04-14 17:45 | XRay Report ---
KUB HISTORY: Acute generalized abdominal pain abd pain COMPARISON: Chest radiograph of same day, CT abdomen pelvis 04/13/2021 FINDINGS: Nonobstructive bowel gas pattern. Cholecystectomy. No urolith identified. No pneumatosis or pneumoperitoneum. Unchanged right hemidiaphragmatic elevation. Degenerative changes of the spine, pe lvis and hips. No acute fracture. IMPRESSION: 1. Nonobstructive bowel gas pattern. 2. No pneumoperitoneum identified. ACT 112: Negative or not required by law. The above report was generated using voice recognition software. It may contain grammatical, syntax o r spelling errors. Electronically signed by: Brayden Gonsalez M.D. 04/14/2021 5:44 PM
--- NOTE | 2021-04-14 17:46 | XRay Report ---
XR chest 1V portable HISTORY: 89 years-old Male epigastric pain acute epigastric abdominal pain COMPARISON: KUB of same day, CT abdomen pelvis 04/13/2021, chest radiograph 10/22/2020 TECHNIQUE: Portable AP view the chest FINDINGS: Chronic right hemidiaphragmatic elevation. Cardiomediastinal and hilar silhouettes are within normal limits. Interstitial coarsening of the lung bases suggestive of atelectasis/scarring. No pneumothorax , pleural effusion, airspace consolidation or overt pulmonary edema. Reverse right shoulder total lorna nt arthroplasty. Degenerative changes of the spine and left shoulder. IMPRESSION: Chronic findings as above without acute process. ACT 112: Negative or not required by law. The above report was generated using voice recognition software. It may contain grammatical, syntax o r spelling errors. Electronically signed by: Brayden Gonsalez M.D. 04/14/2021 5:45 PM
[2021-04-14 17:58] LABS: Albumin Level 3.4 gm/dl (3.4-5.0); BUN Creatinine Ratio 20.5 (10-20); Calcium 9.3 mg/dl (8.5-10.1); Creatinine Clr Calc Pharmacy 40.6 ml/min; Est GFR (African American) 56.5 ml/min; Est GFR (Non-African American) 48.7 ml/min; Potassium 4.3 mmol/L (3.5-5.1)
[2021-04-14 18:00] LABS: Albumin Globulin Ratio 0.9 (0.9-2); Bilirubin,Total 0.3 mg/dl (0.2-1); Globulin 3.7 gm/dl (2.5-4.0); Total Protein 7.1 gm/dl (6.4-8.2)
[2021-04-14 20:30] LABS: Appearance Urine Clear (Clear); Bacteria Urine Automated Negative (Negative); Bilirubin Urine Negative (Negative); Blood Urine Negative (Negative); Color Urine Yellow; Glucose Urine UA Negative (Negative); Ketones Urine Negative (Negative); Leukocyte Esterase Urine 1+ (Negative); Nitrite Urine Negative (Negative); Protein Urine Trace (Negative); RBC Urine Automated 0-4 /hpf (0-4); Specific Gravity Urine 1.019 (1.000-1.030); Urobilinogen Urine Negative (Negative)
--- NOTE | 2021-04-14 20:51 | History & Physical Report ---
Date of Service April 14, 2021 Assessment & Plan (1) Diverticulitis: Proximal Descending and Sigmoid Colon without abscess - No clinical worsening in patient exam and non toxic appearing - KUB performed in EMD without perforation - Keep NPO tonight can may advance to clears tomorrow - Zosyn 3.375 q8 to cover both his diverticulitis and UTI - No fevers, no nausea, WBC 3 with NLR 3:1 - If acute changes occur or not responding to therapy consider re-imaging with CT scan at that time (2) Abdominal pain, acute, left lower quadrant: As above, this has been acute on chronic left flank pain for him. He is tender to abdomen LLQ but not overt or out of proportion - Do not feel this acute change or failing current antibiotic therapy (3) Urinary tract infection: Acute- with BPH history - Rocephin in the EMD - Zosyn as above until cultures return - Had Ecoli in Oct susceptible to Zosyn (4) Diarrhea: Diarrhea since ~February with some noting prior episodes - Had enteric stool panel in February- negative for C. diff, salmonella, shigella, Campylobacter - Add back Metamucil - Imodium can be added back if desired - Stool Giardia and fat - secretory vs. functional vs. infectious vs. other - GI assistance appreciated- EUC/ERCP was noted to be scheduled in future (5) Hypertension: Appears well controlled - Continue Bumex, hydralazine, lisinopril (6) BPH (benign prostatic hyperplasia): Reports no symptoms at current and without medication managment - UTI as above (7) Mild obstructive sleep apnea: Review shows moderate CPAP with autoPAP 5-12 CM H20 (8) Dementia: With depression - citalopram, donepezil - With the above diarrhea and abdominal pain- he is frustrated and likely perseverating over his symptoms - Was also discussion with GI and PCP regarding his SSRI dose vs. Agent (9) GERD (gastroesophageal reflux disease): History of ulceration that is healed but persistent gastritis - was on omeprazole 40mg BID - not sure if he stopped this secondary to his diarrhea - Famotidine 20mg BID for now - PPI given in EMD x1 dose. History of Present Illness Primary Care Provider: DESI Mir 89 YOM with past medical history of: Aflutter with cardioversion in 2020 (on BB and Eliquis), HTN, CKD III, chronic cervical pain treated with radiofrequency ablations, GERD, BPH, ELIANA, OA, Diverticulitis, Chronic Diarrhea, choledocholithiasis, cholecystectomy, DONNA. Patient comes back to the emergency room today [id number] for complaints of increasing diarrhea and left sided abdominal pain. He was seen here and had a CT scan of his abdomen performed yesterday which revealed 2 separate focal areas of acute diverticulitis invo lving the mid descending colon and mid sigmoid colon. No perforation or abscess identified. He was started back on Augmentin and discharged as no abscess or signs of sepsis or perforation. Patient had been treated for presumed diverticulitis in February 2021 as well. The patient has been having on going abdominal pain and diarrhea since February to include Cdiff, CTs of the abdomen and pelvis and adjustment of his medications to include his oral potassium, adding Imodium and Questran and Metamucil to bulk up his stools. Patient states that his stools change color very frequently from green to maroon to black, and he has noted some mucous in them but never bloody. He is unable to associate a time frame from eating to when he has to use the bathroom. He also endorses that there is very little if any formed material in his stools. He says he drinks spring water and that his diet is now a bland diet at home. He does not have any increased bloating with this, but has frequent burping and dyspepsia with burning in his throat. He has been seen by [facility]. Recent EGDs. He has not had a recent colonoscopy. He does have some left lower quadrant pain with palpation, but no guarding or rebound. KUB performed in the EMD without perforation or changes. Patient will be admitted kept NPO tonight, IVF, Zosyn coverage for his diverticulitis and acute UTI that has GN Bacilli ([id number]) and symptom assessment/management. Patient was also noted to have an elevated lipase on [id number] to 1323 which down trended to 998 on [id number] and is 267 on admission. He endorses no central abdominal pain and has a negative Iraheta sign. Allergies Allergy/AdvReac Type Severity Reaction Status Date / Time vancomycin Allergy Intermediate LOWER Verified 04/14/21 16:34 EXTREMITY SWELLING, FEVER Sulfa (Sulfonamide Allergy Mild Rash Verified 04/14/21 16:34 Antibiotics) gabapentin AdvReac Mild drowsy,conf Verified 04/14/21 16:34 used Home Medications Medication Instructions Recorded Confirmed Type cranberry 500 mg capsule 1,000 mg PO QAM 05/31/19 04/14/21 History citalopram 40 mg tablet 40 mg PO QAM #90 tab 08/26/20 04/14/21 Rx apixaban 5 mg tablet 5 mg PO BID #180 tab 11/01/20 04/14/21 Rx acetaminophen 500 mg capsule 1,000 mg PO Q6H PRN 11/27/20 04/14/21 History azelastine 205.5 mcg (0.15 %) 1 spray INTRANASAL BID #30 ml 01/07/21 04/14/21 Rx nasal spray lidocaine 5 % topical patch 1 patch TRANSDERMAL QAM PRN ea 01/21/21 04/14/21 History lisinopril 10 mg tablet 10 mg PO DAILY #30 tab 03/03/21 04/14/21 Rx metoprolol succinate 25 mg 25 mg PO DAILY #90 tab 03/27/21 04/14/21 Rx tablet,extended release 24 hr bumetanide 1 mg tablet 1 mg PO DAILY 04/08/21 04/14/21 History hydralazine 25 mg tablet 25 mg PO TID 04/08/21 04/14/21 History donepezil 23 mg PO HS 04/12/21 04/14/21 History Past Med/Surg History Medical History Anxiety Atrial flutter DX OCT 2020> ELIQUIS/METOPROLOL 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 BPH (benign prostatic hyperplasia) Cervical facet joint syndrome Cervical radicular pain Cervical spinal stenosis Left C7 and 8 paresthesias Cervicogenic headache CKD (chronic kidney disease) stage 3, GFR 30-59 ml/min follows PCP Dyslipidemia GERD (gastroesophageal reflux disease) CONTROLLED Hearing difficulty History of kidney stones Hypertension Impaired fasting glucose Hgb A1C 6.8 on 04/11/20 Left shoulder pain 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 Myofascial pain Nocturnal hypoxemia Occipital neuralgia of left side Osteoarthritis Surgical History H/O colonoscopy (06/2013) History of cystoscopy History of difficult intubation CHOLECYSTECTOMY= 01/11/14= GLIDESCOPE #4 (2/2 DECREASED CERVICAL ROM) BUT HAD GRADE VIEW 1, MAC 4 WITH ANKLE SURGERY 11/09/14 PER [facility] RECORDS History of esophagogastroduodenoscopy (EGD) (09/2019) History of shoulder surgery Rt shoulder - 09/22/18 [facility] History of total knee replacement B/L WITH REVISIONS; LEFT TKA REVISION= 05/13/17= SAB X 2 ATTEMPTS + PNB AT [facility] Hx of cervical spine surgery ROM LIMITED FROM SIDE TO SIDE Hx of total ankle replacement RIGHT S/P cholecystectomy Squamous cell carcinoma of back resolved Family History Son Family history of diabetes mellitus Other No family history of adverse response to anesthesia No pertinent family history Denies family history of Ovarian cancer Prostate cancer Myocardial infarction Breast cancer Colorectal cancer Social History Smoking Status: Never smoker Second Hand Exposure: No; Do You Dip or Chew Tobacco: No; Tobacco Cessation Education Requested by Patient: No Hx Alcohol Use: No Hx Substance Use: No Preferred Language: French Communication Ability: Effective Visual Impairment: No Limitations 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 Required: No Beliefs That Will Affect Care: None marital status: Current Living Situation: Spouse Current Living Situation Comment: lives with , family helps current occupational status: retired 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 Other Information That Helps Us Care for You: No Feels Safe at Home: Yes caffeine: No Seatbelt Use: always Assistive Devices: None Review of Systems Review of Systems: REVIEW OF SYSTEMS: Constitutional: No fever, sweats or chills Eyes: No diplopia, no worsening or blurred vision ENT: normal hearing, no trouble swallowing Respiratory: No cough, sputum, dyspnea at rest or on exertion Cardiovascular: No chest pain, tightness or palpitations Abdomen: (+) LLQ pain, diarrhea NO constipation, nausea, vomiting, Musculoskeletal: (+) cervical and shoulder pain, left flank pain chronic, No joint pain, calf pain, swelling Neurologic: No weakness, numbness/tingling, or balance problems Psychiatric: (+) anxiety depression Skin: No rash or itch Physical Exam Physical Exam: PHYSICAL EXAM: General: awake, alert, no apparent distress Head: Normocephalic, atraumatic ENT: PERRL, EOMI, no pharyngeal exudate, mucous membranes moist Neuro: AAO x 3, speech clear and appropriate, strength intact bilaterally 5/5, sensation intact and equal all extremities and dermatomes, no pronator drift Chest: equal rise and fall of the chest, no accessory muscle use, no heaves or thrills, Clear to auscultation, on room air, Cardiac: Regular rate and rhythm, telemetry reviewed-NSR, skin warm dry, cap refill <3 seconds, peripheral pulses +2 no JVD, no murmur, no JVD, trace lower extremity edema GI: NABS x 4 quadrants with a lot of flatus, soft, tender to palpation LLQ, no rebound, guarding or tenderness, negative iraheta's sign, tympany on percussioni : Spontaneously voiding, no pain, no CVA tenderness, Extremities: Normal inspection, no peripheral edema or erythema, calfs nontender to palpation Psych: anxious Skin: no rash or erythema Results & Data Results & Data ([facility]) Vital Signs (Past 12 Hours) Vital Signs Temp Pulse Resp BP Pulse Ox 04/14/21 20:20 81 23 96 04/14/21 20:10 78 24 96 04/14/21 20:01 81 21 154/87 H 96 04/14/21 20:00 76 23 96 04/14/21 19:50 79 20 95 04/14/21 19:40 77 20 96 04/14/21 19:30 75 20 95 04/14/21 19:20 74 20 96 04/14/21 19:10 73 24 95 04/14/21 19:01 72 22 147/78 H 96 04/14/21 19:00 71 23 96 04/14/21 18:50 73 24 96 04/14/21 18:46 74 24 96 04/14/21 18:45 77 22 159/85 H 95 04/14/21 18:30 75 21 93 04/14/21 18:20 77 21 94 04/14/21 18:10 80 19 94 04/14/21 18:01 75 21 134/71 94 04/14/21 18:00 78 19 94 04/14/21 17:50 78 20 94 04/14/21 17:40 82 20 95 04/14/21 17:30 75 17 94 04/14/21 17:20 73 17 94 04/14/21 17:17 95 04/14/21 17:12 68 20 96 04/14/21 16:50 71 22 154/77 H 94 04/14/21 13:27 36.4 C L 78 20 127/68 96 Laboratory Results Abnormal lab results 04/14/21 04/14/21 04/14/21 Range/Units 17:01 17:01 20:18 WBC 3.87 L (4.8-10.8) K/uL RBC 4.31 L (4.7-6.1) M/uL Hgb 13.9 L (14.0-18.0) g/dL Hct 41.9 L (42-52) % RDW Std Deviation 48.2 H (36.4-46.3) fL Lymph # (Auto) 0.94 L (1.2-3.4) K/uL BUN 27 H (7-18) mg/dl BUN/Creatinine Ratio 20.5 H (10-20) Glucose 117 H (70-99) mg/dl Urine Protein Trace H (Negative) Ur Leukocyte Esterase 1+ H (Negative) Urine WBC (Auto) 10-30 H (0-5) /hpf U Epithel Cells (Auto) 5-10 H (0-5) /lpf Diagnostic Findings KUB X-Ray 04/14/21 16:40 KUB HISTORY: Acute generalized abdominal pain abd pain COMPARISON: Chest radiograph of same day, CT abdomen pelvis 04/13/2021 FINDINGS: Nonobstructive bowel gas pattern. Cholecystectomy. No urolith identified. No pneumatosis or pneumoperitoneum. Unchanged right hemidiaphragmatic elevation. Degenerative changes of the spine, pelvis and hips. No acute fracture. IMPRESSION: 1. Nonobstructive bowel gas pattern. 2. No pneumoperitoneum identified. Electronically signed by: Brayden Gonsalez M.D. 04/14/2021 5:44 PM Chest X-Ray 04/14/21 17:32 XR chest 1V portable HISTORY: 89 years-old Male epigastric pain acute epigastric abdominal pain COMPARISON: KUB of same day, CT abdomen pelvis 04/13/2021, chest radiograph 10/22/2020 TECHNIQUE: Portable AP view the chest FINDINGS: Chronic right hemidiaphragmatic elevation. Cardiomediastinal and hilar silhouettes are within normal limits. Interstitial coarsening of the lung bases suggestive of atelectasis/scarring. No pneumothorax, pleural effusion, airspace consolidation or overt pulmonary edema. Reverse right shoulder total joint arthroplasty. Degenerative changes of the spine and left shoulder. IMPRESSION: Chronic findings as above without acute process. Electronically signed by: Brayden Gonsalez M.D. 04/14/2021 5:45 PM ABDOMEN AND PELVIS CT WITH IV CONTRAST- CT DOSE: 731.80 mGy.cm HISTORY: Left-sided abdominal pain. eval for pancreatitis and diverticulitis TECHNIQUE: Multiaxial CT images of the abdomen and pelvis were performed following the use of intravenous contrast. A dose lowering technique was utilized adhering to the principles of ALARA. COMPARISON STUDY: Abdomen and pelvis CT 03/27/2021. FINDINGS: Mild dependent changes seen at the right lung base. No pneumoperitoneum. No pneumatosis. No suspicious lytic or blastic osseous lesions. Mild intrahepatic bile duct dilatation, unchanged. This is likely due to the patient's postcholecystectomy state. The liver, spleen, adrenal glands, and pancreas are unremarkable. A few subcentimeter bilateral renal hypodense lesions remain stable. No hydronephrosis. No retroperitoneal lymphadenopathy. Normal caliber abdominal aorta. There is a 3 cm diverticulum at the second portion of the duodenum as well as a 1 cm duodenal diverticula. The bladder is unremarkable. The prostate gland is heterogeneous and enlarged. This remains unchanged. No retroperitoneal lymphadenopathy. Normal caliber abdominal aorta. The main portal vein is patent. No evidence for bowel obstruction. Colonic diverticulosis. There are 2 separate inflamed diverticula seen within the mid sigmoid colon and mid descending colon consistent with acute diverticulitis. No perforation or abscess identified at this time. There is moderate well-formed stool seen within the colon. Old left anterior fifth rib fracture. IMPRESSION: 1. There are 2 separate focal areas of acute diverticulitis involving the mid descending colon and mid sigmoid colon. No perforation or abscess identified at this time. 2. Prostatomegaly, unchanged. 3. Additional degenerative changes as described above. Medications Administered Home Medications cranberry 500 mg capsule 1,000 mg PO QAM 05/31/19 [History Confirmed 04/14/21] citalopram 40 mg tablet 40 mg PO QAM #90 tab 08/26/20 [Rx Confirmed 04/14/21] apixaban 5 mg tablet 5 mg PO BID #180 tab 11/01/20 [Rx Confirmed 04/14/21] acetaminophen 500 mg capsule 1,000 mg PO Q6H PRN 11/27/20 [History Confirmed 04/14/21] azelastine 205.5 mcg (0.15 %) nasal spray 1 spray INTRANASAL BID #30 ml 01/07/21 [Rx Confirmed 04/14/21] lidocaine 5 % topical patch 1 patch TRANSDERMAL QAM PRN ea 01/21/21 [History Confirmed 04/14/21] lisinopril 10 mg tablet 10 mg PO DAILY #30 tab 03/03/21 [Rx Confirmed 04/14/21] metoprolol succinate 25 mg tablet,extended release 24 hr 25 mg PO DAILY #90 tab 03/27/21 [Rx Confirmed 04/14/21] bumetanide 1 mg tablet 1 mg PO DAILY 04/08/21 [History Confirmed 04/14/21] hydralazine 25 mg tablet 25 mg PO TID 04/08/21 [History Confirmed 04/14/21] donepezil 23 mg PO HS 04/12/21 [History Confirmed 04/14/21] Active Medications Fentanyl Citrate (Fentanyl Citrate 100 Mcg/2 Ml Vial) 50 mcg IV Q15M PRN PRN Reason: Pain Stop: 04/28/21 16:39 Last Admin: 04/14/21 17:03 Dose: 50 mcg Documented by: Fentanyl Citrate (Fentanyl Citrate 100 Mcg/2 Ml Vial) 50 mcg IV Q15M PRN PRN Reason: Pain Stop: 04/28/21 16:39 Last Admin: 04/14/21 17:03 Dose: 50 mcg Documented by: [id number] Discontinued Medications Sodium Chloride (Nss) 500 mls @ 999 mls/hr IV .Q31M STA Stop: 04/14/21 17:10 Last Infusion: 04/14/21 17:31 Dose: 0 mls/hr Documented by: [id number] Admin: 04/14/21 16:56 Dose: 999 mls/hr Documented by: [id number] Famotidine (Pepcid 20mg Iv Push) 20 mg in 5 mls @ 2.5 mls/min IV NOW STA Stop: 04/14/21 16:42 Last Admin: 04/14/21 17:01 Dose: 2.5 mls/min Documented by: [id number] Pantoprazole Sodium 40 mg/ (Syringe) 10 mls @ 5 mls/min IV NOW ONE Stop: 04/14/21 16:42 Last Admin: 04/14/21 18:36 Dose: 5 mls/min Documented by: [id number] Ceftriaxone Sodium (Rocephin) 1,000 mg in 50 mls @ 100 mls/hr IV NOW STA Stop: 04/14/21 17:11 Last Infusion: 04/14/21 17:36 Dose: 0 mls/hr Documented by: [id number] Admin: 04/14/21 17:04 Dose: 100 mls/hr Documented by: [id number] Ondansetron HCl (Ondansetron Inj 2 Mg/Ml 2 Ml Vial) 4 mg IV NOW STA Stop: 04/14/21 16:41 Last Admin: 04/14/21 16:59 Dose: 4 mg Documented by: [id number] ECG Additional Comments: Pending at time of H&P Code Status & VTE Plan Code Status CODE: DNR/DNI VTE: SCD's, ambulation, Apixaban VTE Prophylaxis Plan VTE Prophylaxis will be ordered: Yes Supervising Physician Co-Signing Physician Notes Patient seen and examined, chart reviewed, case discussed with DESI Stacy and I agree with his assessment and plan as above. In brief, patient is a 89yo male with history of chronic intermittent diarrhea presenting with abdominal pain. Patient was diagnosed with acute diverticulitis yesterday and started on Augmentin. Still with lower abdominal pain and bloating. On exam he is afebrie, HD stable, non-toxic in appearance Skin - warm, dry, intact, no rashes/lesions HEENT - NC/AT, PERRL, MMM Heart - +S1/S2, regular, no m/r/g Lungs - CTA Abd - +BS, soft, distended and tympanic to percussion with mild tenderness to deep palpation in LLQ, no rebound/guarding/peritoneal signs Labs and images reviewed Assessment/Plan -Observation to medical -Antibiotics -Monitor for clinical improvement. Consider repeat CT if patient fails to improve -Should have outpatient colonoscopy after acute diverticulitis to rule out malignancy - may also aide in diagnosis of ongoing diarrhea -Remainder of plan as above PG Care Time/CCT Total # of Minutes Spent Total Time Spent with Patient: Total time spent is greater than 50% in coordination of care (as documented) at patient's floor/unit and/or counseling patient: Coding Level of Care Code 64864 OBS Care - Level 3 Diagnoses Diverticulitis K57.92 Abdominal pain, acute, left lower quadrant R10.32 Urinary tract infection N39.0 Hematuria presence: without hematuria Urinary tract infection type: site unspecified Diarrhea R19.7 Diarrhea type: unspecified type Hypertension I10 Hypertension type: essential hypertension BPH (benign prostatic hyperplasia) N40.0 Lower urinary tract symptom presence: symptoms absent Mild obstructive sleep apnea G47.33 Dementia F03.90 Dementia behavioral disturbance: without behavioral disturbance Dementia type: unspecified type GERD (gastroesophageal reflux disease) K21.9 Esophagitis presence: esophagitis presence not specified (1) Urinary tract infection Hematuria presence: without hematuria Urinary tract infection type: site unspecified Qualified Code(s): N39.0 - Urinary tract infection, site not specified (2) BPH (benign prostatic hyperplasia) Lower urinary tract symptom presence: symptoms absent Qualified Code(s): N40. 0 - Benign prostatic hyperplasia without lower urinary tract symptoms (3) Dementia Dementia behavioral disturbance: without behavioral disturbance Dementia type: unspecified type Qualified Code(s): F03.90 - Unspecified dementia without behavioral disturbance (4) Diarrhea Diarrhea type: unspecified type Qualified Code(s): R19.7 - Diarrhea, unspecified (5) GERD (gastroesophageal reflux disease) Esophagitis presence: esophagitis presence not specified Qualified Code(s): K21.9 - Gastro-esophageal reflux disease without esophagitis (6) Hypertension Hypertension type: essential hypertension Qualified Code(s): I10 - Essential (primary) hypertension
[2021-04-14] MEDS ORDERED: LIDOCAINE 5% 1 PATCH TD PRN (22:31)
[2021-04-14] MEDS ORDERED: FAMOTIDINE 20MG/5ML IV PUSH IV SCH (22:31)
[2021-04-14] MEDS ORDERED: ACETAMINOPHEN 500 MG TAB PO PRN (22:58)
[2021-04-14] MEDS: APIXABAN 5 MG TABLET PO SCH (23:47)
[2021-04-14] MEDS: DONEPEZIL HCL 10 MG TAB PO SCH (23:48)
[2021-04-14] MEDS: FAMOTIDINE 20 MG in SYRINGE 3 ML IV SCH (23:48)
[2021-04-14] MEDS: hydrALAZINE HCL 25 MG TAB PO SCH (23:48)
[2021-04-15] MEDS: ASTELIN - ORDER AWAITING ACTION SCH ×3 (00:30→17:32)
[2021-04-15 06:00] LABS: Basophils # (auto) 0.02 K/uL (0-0.2); Basophils % (auto) 0.5 %; Eosinophils # (auto) 0.05 K/uL (0-0.5); Eosinophils % (auto) 1.3 %; Hematocrit (blood only) 39.8 % (42-52); Hemoglobin 13.3 g/dL (14.0-18.0); Immature Granulocytes # (auto) 0.01 K/uL (0.00-0.02); Immature Granulocytes % (auto) 0.3 %; Lymphocytes # (auto) 1.35 K/uL (1.2-3.4); Lymphocytes % (auto) 34.4 %; Mean Corpuscular Hemoglobin 31.7 pg (25-34); Mean Corpuscular Hgb Conc 33.4 g/dL (32-36); Mean Platelet Volume 9.2 fL (7.4-10.4); Monocytes # (auto) 0.42 K/uL (0.11-0.59); Monocytes % (auto) 10.7 %; Neutrophils # (auto) 2.08 K/uL (1.4-6.5); Neutrophils % (auto) 52.8 %; Platelet Count 218 K/uL (130-400); RDW Coefficient of Variation 13.5 % (11.5-14.5); Red Blood Count 4.19 M/uL (4.7-6.1); White Blood Count 3.93 K/uL (4.8-10.8)
[2021-04-15 06:35] LABS: BUN Creatinine Ratio 17.1 (10-20); Calcium 9.1 mg/dl (8.5-10.1); Creatinine Clr Calc Pharmacy 46.7 ml/min; Est GFR (African American) 66.9 ml/min; Est GFR (Non-African American) 57.7 ml/min
[2021-04-15] MEDS ORDERED: MEROPENEM CONSULT ACITVE PRN (07:56)
[2021-04-15] MEDS ORDERED: MEROPENEM 500 MG in SYRINGE 0 ML IV SCH (08:00)
[2021-04-15] MEDS: FAMOTIDINE 20 MG in SYRINGE 3 ML IV SCH ×2 (08:14→20:27)
[2021-04-15] MEDS: CITALOPRAM 40 MG TAB PO SCH (08:15)
[2021-04-15] MEDS: PSYLLIUM 58.6% POWDER PACKET PO SCH (08:15)
[2021-04-15] MEDS: BUMETANIDE 1 MG TAB PO SCH (08:15)
[2021-04-15] MEDS: METOPROLOL SUCC 25MG EXT REL TAB PO SCH (08:15)
[2021-04-15] MEDS: lisinopril 10 MG TAB PO SCH (08:15)
[2021-04-15] MEDS: hydrALAZINE HCL 25 MG TAB PO SCH ×3 (08:16→20:26)
[2021-04-15] MEDS: APIXABAN 5 MG TABLET PO SCH ×2 (08:16→20:26)
[2021-04-15] MEDS ORDERED: PIPERACILLIN/TAZOBACTAM 3.375 GM in DEXTROSE 5% 100 ML IV ONE (10:00)
--- NOTE | 2021-04-15 10:55 | Gastrointestinal Consultation ---
Date of Consultation April 15, 2021 Assessment & Plan (1) Diverticulitis large intestine: (2) Choledocholithiasis: 1. Diverticulitis: * Continue IV antibiotics. * Supportive care. * Outpatient colonoscopy in 6 weeks. 2. Suspected choledocholithiasis and recent acute pancreatitis: * Will discuss with [facility] in regard to timing of EUS/ERCP. * Continue NPO for now. Thank you for allowing us to participate in the care of this pleasant patient. If you have any questions or concerns, please do not hesitate to contact us. Supervising Physician Co-Signing Physician Notes I personally evaluated the patient and agree with the findings as documented by DESI Headley Exam: abd: soft, nt, nd History of Present Illness Reason for Consultation: Abdominal pain and diarrhea Requesting Physician: DESI Christianson Attending Physician: Harjit Ruiz DO History of Present Illness Patient is a very pleasant 89 y.o. male with a history of chronic abdominal pain admitted with intractable abdominal pain last evening. He was diagnosed with acute diverticulitis on 04/13 in the ER but did not tolerate outpatient management. He is now being treated with IV antibiotics. In doing so, he reports he is feeling better. Still with left-sided abdominal pain that he currently rates as 6/10 in intensity. No diarrhea this morning. States he passed a formed stool. No fevers or chills. Interestingly, he is also in the process of being referred for EUS and possible ERCP due to findings of a suspected distal CBD stone with associated acute pancreatitis. Since admission, however, it appears his lipase has normalized and liver panel is normal. He had been reporting epigastric pain as well but this has since subsided. No jaundice, pruritus, or dark urine. Allergies Allergy/AdvReac Type Severity Reaction Status Date / Time vancomycin Allergy Intermediate LOWER Verified 04/14/21 16:34 EXTREMITY SWELLING, FEVER Sulfa (Sulfonamide Allergy Mild Rash Verified 04/14/21 16:34 Antibiotics) gabapentin AdvReac Mild drowsy,conf Verified 04/14/21 16:34 used Home Medications Medication Instructions Recorded Confirmed Type cranberry 500 mg capsule 1,000 mg PO QAM 05/31/19 04/14/21 History citalopram 40 mg tablet 40 mg PO QAM #90 tab 08/26/20 04/14/21 Rx apixaban 5 mg tablet 5 mg PO BID #180 tab 11/01/20 04/14/21 Rx acetaminophen 500 mg capsule 1,000 mg PO Q6H PRN 11/27/20 04/14/21 History azelastine 205.5 mcg (0.15 %) 1 spray INTRANASAL BID #30 ml 01/07/21 04/14/21 Rx nasal spray lidocaine 5 % topical patch 1 patch TRANSDERMAL QAM PRN ea 01/21/21 04/14/21 History lisinopril 10 mg tablet 10 mg PO DAILY #30 tab 03/03/21 04/14/21 Rx metoprolol succinate 25 mg 25 mg PO DAILY #90 tab 03/27/21 04/14/21 Rx tablet,extended release 24 hr bumetanide 1 mg tablet 1 mg PO DAILY 04/08/21 04/14/21 History hydralazine 25 mg tablet 25 mg PO TID 04/08/21 04/14/21 History donepezil 23 mg PO HS 04/12/21 04/14/21 History Patient History Medical History (Updated 04/15/21 @ 13:57 by Maria Fernanda Degroot PA-C) Anxiety Atrial flutter DX OCT 2020> ELIQUIS/METOPROLOL 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 BPH (benign prostatic hyperplasia) Cervical facet joint syndrome Cervical radicular pain Cervical spinal stenosis Left C7 and 8 paresthesias Cervicogenic headache CKD (chronic kidney disease) stage 3, GFR 30-59 ml/min follows PCP Dyslipidemia GERD (gastroesophageal reflux disease) CONTROLLED Hearing difficulty History of kidney stones Hypertension Impaired fasting glucose Hgb A1C 6.8 on 04/11/20 Left shoulder pain 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 Myofascial pain Nocturnal hypoxemia Occipital neuralgia of left side Osteoarthritis Pancreatitis Surgical History H/O colonoscopy (06/2013) History of cystoscopy History of difficult intubation CHOLECYSTECTOMY= 01/11/14= GLIDESCOPE #4 (2/2 DECREASED CERVICAL ROM) BUT HAD GRADE VIEW 1, MAC 4 WITH ANKLE SURGERY 11/09/14 PER [facility] RECORDS History of esophagogastroduodenoscopy (EGD) (09/2019) History of shoulder surgery Rt shoulder - 09/22/18 [facility] History of total knee replacement B/L WITH REVISIONS; LEFT TKA REVISION= 05/13/17= SAB X 2 ATTEMPTS + PNB AT [facility] Hx of cervical spine surgery ROM LIMITED FROM SIDE TO SIDE Hx of total ankle replacement RIGHT S/P cholecystectomy Squamous cell carcinoma of back resolved Family History Son Family history of diabetes mellitus Other No family history of adverse response to anesthesia No pertinent family history Denies family history of Ovarian cancer Prostate cancer Myocardial infarction Breast cancer Colorectal cancer Social History Smoking Status: Never smoker Second Hand Exposure: No; Hx Alcohol Use: No Hx Substance Use: No Preferred Language: Russian Communication Ability: Effective Visual Impairment: No Limitations Brimmer Blocker Required: No Beliefs That Will Affect Care: None marital status: Current Living Situation: Spouse Current Living Situation Comment: lives with , family helps current occupational status: 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 Feels Safe at Home: Yes caffeine: No Seatbelt Use: always Assistive Devices: None Review of Systems Constitutional: + fatigue; no fever and no chills Gastrointestinal: as per Subjective / HPI Physical Exam Constitutional: WD/WN, vitals as above well developed and well nourished Respiratory: normal respiratory effort, lungs clear to auscultation Cardiovascular: Rate/Rhythm: regular rate and regular rhythm Heart Sounds: + murmur Gastrointestinal (Abdomen): Inspection/Auscultation: normal bowel sounds Percussion/Palpation: + abdomen tender and abdomen soft (LLQ) Results & Data ([facility]) Vital Signs (Past 12 Hours) Vital Signs Temp Pulse Pulse Pulse Resp BP Pulse Ox 04/15/21 07:29 37.0 C 77 16 118/70 94 04/15/21 03:19 80 22 94 04/14/21 23:46 76 127/76 04/14/21 23:29 88 21 96 Laboratory Results Abnormal lab results 04/14/21 04/14/21 04/14/21 Range/Units 17:01 17:01 20:18 WBC 3.87 L (4.8-10.8) K/uL RBC 4.31 L (4.7-6.1) M/uL Hgb 13.9 L (14.0-18.0) g/dL Hct 41.9 L (42-52) % RDW Std Deviation 48.2 H (36.4-46.3) fL Lymph # (Auto) 0.94 L (1.2-3.4) K/uL Anion Gap (3-11) BUN 27 H (7-18) mg/dl BUN/Creatinine Ratio 20.5 H (10-20) Glucose 117 H (70-99) mg/dl Urine Protein Trace H (Negative) Ur Leukocyte Esterase 1+ H (Negative) Urine WBC (Auto) 10-30 H (0-5) /hpf U Epithel Cells (Auto) 5-10 H (0-5) /lpf 04/15/21 04/15/21 Range/Units 05:32 05:32 WBC 3.93 L (4.8-10.8) K/uL RBC 4.19 L (4.7-6.1) M/uL Hgb 13.3 L (14.0-18.0) g/dL Hct 39.8 L (42-52) % RDW Std Deviation 47.0 H (36.4-46.3) fL Lymph # (Auto) (1.2-3.4) K/uL Anion Gap 2.0 L (3-11) BUN 19 H (7-18) mg/dl BUN/Creatinine Ratio (10-20) Glucose 107 H (70-99) mg/dl Urine Protein (Negative) Ur Leukocyte Esterase (Negative) Urine WBC (Auto) (0-5) /hpf U Epithel Cells (Auto) (0-5) /lpf PG Care Time/CCT Total # of Minutes Spent Total Time Spent with Patient: Total time spent is greater than 50% in coordination of care (as documented) at patient's floor/unit and/or counseling patient: Coding Level of Care Code 05660 Initial Inpt Care Lvl 3 Diagnoses Diverticulitis large intestine K57.32 Diverticulitis bleeding: without bleeding Diverticulitis complication: without perforation or abscess Choledocholithiasis K80.50 (1) Diverticulitis large intestine Diverticulitis bleeding: without bleeding Diverticulitis complication: withou t perforation or abscess Qualified Code(s): K57.32 - Diverticulitis of large intestine without perforation or abscess without bleeding
--- NOTE | 2021-04-15 13:44 | Hospitalist Progress Note ---
Date of Service April 15, 2021 Assessment & Plan (1) Diverticulitis: Proximal Descending and Sigmoid Colon without abscess * Patient ordered oral intake this morning. He has persistent pain. Will make n.p.o. for GI rest * Continue with empiric antibiotic therapy (Zosyn) * Start very gentle IV hydration due to n.p.o. status * GI on consultappreciate recommendations. Patient will likely need an upper and lower endoscopy in 6 weeks (lower endoscopy to follow-up on diverticulitis but would encourage an upper endoscopy as well as patient has been having ongoing issues for 6 months. Should have a biopsy to rule out celiac sprue) (2) Urinary tract infection: Acute * Treatment options discussed in great detail with pharmacy and Dr. Ruiz. Subsequently, culture data shows resistance to Unasyn and ampicillin but sensitivities to Augmentin and Zosyn (VILMA on Zosyn is 16). In addition, it is resistant to quinolones and sulfa drugs. My initial plan was to transition IV antibiotic therapy to Merrem which would provide adequate coverage for his di verticulitis and for this multidrug-resistant UTI. It is not E. coli but it is resistant to multiple agents. I was leery to use Zosyn given the resistance to Unasyn and ampicillin and the high VILMA to Zosyn. Pharmacy is suggesting Zosyn due to restrictions to Carbapenem's. This infection is not E SBL but it is multidrug-resistant with poor VILMA to Zosyn. We will continue Zosyn for now; however, if patient shows poor response (such as tachycardia, fever, leukocytosis, continued suprapubic pain with urgency) despite antibiotic therapy, will transition to Merrem. This was discussed with Dr. Faye tong who agrees. It seems to me that patient is developing a resistance to penicillins. (3) Diarrhea: Diarrhea since ~February with some noting prior episodes. None since hospitalization - Had enteric stool panel in February- negative for C. diff, salmonella, shigella, Campylobacter - Add back Metamucil - Imodium can be added back if desired - Stool Giardia and fat -Appreciate recommendations from GI. Suspect patient will need both upper and lower endoscopy (upper to help rule out celiac sprue). In the interim, will obtain a celiac panel (4) Hypertension: Appears well controlled - Continue Bumex, hydralazine, lisinopril (5) BPH (benign prostatic hyperplasia): Reports no symptoms at current and without medication managment - UTI as above (6) Mild obstructive sleep apnea: * Continue use with CPAP (7) Dementia: With depression - citalopram, donepezil - With the above diarrhea and abdominal pain- he is frustrated and likely perseverating over his symptoms - Was also discussion with GI and PCP regarding his SSRI dose vs. Agent (8) GERD (gastroesophageal reflux disease): History of ulceration that is healed but persistent gastritis - was on omeprazole 40mg BID - not sure if he stopped this secondary to his diarrhea - Famotidine 20mg BID for now - PPI given in EMD x1 dose. Lengthy review of remote records shows patient with recent pancreatitis. Suspect it was due to a common bile duct stone that was seen on his CT scan in March. It is not appreciated on the CT scan. Perhaps he passed a stone. At any rate, I appreciate recommendations from GI. Suspect he would benefit from an MRCP to determine if there is residual sludge/stones in the duct that would require ERCP removal. We will reach out to GI. Admission and Anticipated Discharge Date Admission Date: April 14, 2021 Subjective Mr. Desir is an 89-year-old white male with a past medical history of atrial flutter s/p conversion, BPH, CKD, HLD, GERD, and ELIANA requiring CPAP. He was hospitalized in the overnight hours for acute diverticulitis and urinary tract infection. He apparently was in the ED on 04/13 and found to have radiographic evidence of diverticulitis at that time. He did not have a fever or an elevated WBC count. He was tolerating oral intake and subsequently discharged home with Augmentin. His pain continued which prompted him to come back to the ED yesterday resulting in hospitalization. Patient is a vague historian but apparently he has been having ongoing pain in this left side with intermittent diarrhea for months. He has seen his PCP and GI. He had an outpatient work-up showing pancreatitis (lipase 1323 on 04/11 and 998 on 04/12). His lipase during this hospitalization was normal at 267. He apparently had an outpatient CT of the abdomen and pelvis showing a possible 4 mm distal common bile duct stone. That is not mentioned on the CT scan done on 04/13. There is some mild ductal dilatation; however, presumed normal s/p cholecystectomy. Patient was hospitalized for his acute diverticulitis and urinary tract infection. He was given IV Zosyn in the emergency department. He was ordered a clear liquid diet this morning. Patient has continued abdominal pain predominantly in the left lower quadrant with radiation into the left flank and suprapubic discomfort. He reports subjective fevers and chills. The nausea he had prior to presentation has since resolved. He denies vomiting. 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 He has seen GI for this intermittent diarrhea and has had stool testing for C. difficile X3 that has all been negative (most recent being March 2021). Review of Systems Review of Systems: Patient reports subjective fevers and chills, abdominal pain, frequency and nausea/diarrhea that was reported COMMERCIAL KITCH[employer] SERVICE TECHNICIAN but has since resolved.otherwise, he denies headache, nasal congestion, sore throat, cough, chest pain, shortness of breath, vomiting, dysuria, hematuria, incontinence. Physical Exam Physical Exam: General: Resting comfortably in his hospital bed. He clearly has some underlying cognitive impairment. He is oriented to place and self and somewhat to situation. Unoriented to time (believes it is May and unsure of the year). He does not appear ill or toxic Cardiac: RRR with 1/6 EDU Lungs: CTA without W/R/R Abdomen: Normoactive X4. Soft and nondistended. Tender in the LLQ and suprapubic region. No CVA tenderness. No right upper quadrant tenderness Extremities: No peripheral clubbing cyanosis or edema Results & Data Results & Data ([facility]) Vital Signs (Past 12 Hours) Vital Signs Temp Pulse Pulse Pulse Resp BP Pulse Ox 04/15/21 13:23 67 134/80 04/15/21 07:29 37.0 C 77 16 118/70 94 04/15/21 03:19 80 22 94 Laboratory Results 04/15/21 05:32 04/15/21 05:32 Lengthy review of old records: Total bilirubin has been within normal limits: 04/11/2021=0.5, 04/12/2021 = 0.5, 04/14/2021 = 0.3 AST was slightly elevated on 04/11 but has since normalized: 04/11/2021 = 39, 04/12/2021 = 19, 04/14/2021 = 17 ALT has been within normal limits: 04/11/2021 = 55, 04/12/2021 = 39, 04/14/2021 = 33 Lipase elevated COMM[employer] K[employer] SERVICE TECHNICIAN but normal during this hospitalization: 04/11/2021 = 1323, 04/12/2021 = 998, 04/14/2021 = 267 In addition, patient had a urine culture done 04/13/21: E coli RX M.I.C. --- --------- Amox/Clav S <=8/4 Ampicillin R >16 Amp/Sul R >16/8 Cefazolin S 4 Cefepime S <=2 Ceftriaxone S <=1 Ciprofloxacin R >2 Ertapenem S <=0.5 Gentamicin S <=4 Levofloxacin R >4 Meropenem S <=1 Nitrofurantoin S <=32 Tobramycin S <=4 Trimeth/Sulfa R >2/38 Pip/Tazo S <=[address] of the abdomen and pelvis done 04/13: IMPRESSION: 1. There are 2 separate focal areas of acute diverticulitis involving the mid descending colon and mid sigmoid colon. No perforation or abscess identified at this time. 2. Prostatomegaly, unchanged. 3. Additional degenerative changes as described above. CT of the abdomen and pelvis done 03/27 reviewed: IMPRESSION: 1. Possible 4 mm distal common bile duct stone. This may account for the slight increase in the intrahepatic bile duct dilatation. Follow-up MRCP or ERCP is recommended for further evaluation. 2. No evidence for bowel obstruction. 3. Extensive colonic diverticulosis with chronic changes at the sigmoid colon as described above. No CT evidence for acute diverticulitis. 4. Healing left anterior fifth rib fracture. 5. Cholecystectomy.. 6. Prostatomegaly. PG Care Time/CCT Total # of Minutes Spent Total Time Spent with Patient: Total time spent is greater than 50% in coordination of care (as documented) at patient's floor/unit and/or counseling patient: [place] [address] Subseq Hosp Care Lvl 3 Patient Type Established History Detailed Exam Detailed Medical Decision Making High Complexity Diagnoses Diverticulitis K57.92 Urinary tract infection N39.0 Hematuria presence: without hematuria Urinary tract infection type: site unspecified Diarrhea R19.7 Diarrhea type: unspecified type Hypertension I10 Hypertension type: essential hypertension BPH (benign prostatic hyperplasia) N40.0 Lower urinary tract symptom presence: symptoms absent Mild obstructive sleep apnea G47.33 Dementia F03.90 Dementia type: unspecified type Dementia behavioral disturbance: without behavioral disturbance GERD (gastroesophageal reflux disease) K21.9 Esophagitis presence: esophagitis presence not specified (1) Urinary tract infection Hematuria presence: without hematuria Urinary tract infection type: site unspecified Qualified Code(s): N39.0 - Urinary tract infection, site not specified (2) Diarrhea Diarrhea type: unspecified type Qualified Code(s): R19.7 - Diarrhea, unspecified (3) Hypertension Hypertension type: essential hypertension Qualified Code(s): I10 - Essential (primary) hypertension (4) BPH (benign prostatic hyperplasia) Lower urinary tract symptom presence: symptoms absent Qualified Code(s): N40.0 - Benign prostatic hyperplasia without lower urinary tract symptoms (5) Dementia Dementia type: unspecified type Dementia behavioral disturbance: without behavioral disturbance Qualified Code(s): F03.90 - Unspecified dementia without behavioral disturbance (6) GERD (gastroesophageal reflux disease) Esophagitis presence: esophagitis presence not specified Qualified Code(s): K21.9 - Gastro-esophageal reflux disease without esophagitis
[2021-04-15] MEDS: PIPERACILLIN/TAZOBACTAM 3.375 GM in DEXTROSE 5% 100 ML IV SCH (16:48)
[2021-04-15] MEDS: DONEPEZIL HCL 10 MG TAB PO SCH (20:26)
[2021-04-16] MEDS: PIPERACILLIN/TAZOBACTAM 3.375 GM in DEXTROSE 5% 100 ML IV SCH ×3 (00:40→17:01)
[2021-04-16] MEDS: ASTELIN - ORDER AWAITING ACTION SCH ×4 (02:09→23:54)
--- NOTE | 2021-04-16 05:53 | Electrocardiogram Report ---
Test Reason : Blood Pressure : / mmHG Vent. Rate : 080 BPM Atrial Rate : 080 BPM P-R Int : 164 ms QRS Dur : 134 ms QT Int : 404 ms P-R-T Axes : 065 -45 065 degrees QTc Int : 465 ms Normal sinus rhythm Right bundle branch block Left anterior fascicular block Bifascicular block Minimal voltage criteria for LVH, may be normal variant Abnormal ECG When compared with ECG of 22-NOV-2020 07:55, No significant change was found Confirmed by Fritz Lawrence ([id number]) on 04/16/2021 5:53:17 AM Referred By: Deedee Carter Confirmed By:Fritz Lawrence
[2021-04-16 06:42] LABS: Basophils # (auto) 0.02 K/uL (0-0.2); Basophils % (auto) 0.6 %; Eosinophils # (auto) 0.06 K/uL (0-0.5); Eosinophils % (auto) 1.9 %; Hematocrit (blood only) 38.7 % (42-52); Hemoglobin 12.8 g/dL (14.0-18.0); Immature Granulocytes # (auto) 0.01 K/uL (0.00-0.02); Immature Granulocytes % (auto) 0.3 %; Lymphocytes # (auto) 0.82 K/uL (1.2-3.4); Lymphocytes % (auto) 25.6 %; Mean Corpuscular Hemoglobin 31.8 pg (25-34); Mean Corpuscular Hgb Conc 33.1 g/dL (32-36); Mean Platelet Volume 9.4 fL (7.4-10.4); Monocytes # (auto) 0.36 K/uL (0.11-0.59); Monocytes % (auto) 11.3 %; Neutrophils # (auto) 1.93 K/uL (1.4-6.5); Neutrophils % (auto) 60.3 %; Platelet Count 237 K/uL (130-400); RDW Coefficient of Variation 13.1 % (11.5-14.5); RDW Standard Deviation 45.9 fL (36.4-46.3); Red Blood Count 4.03 M/uL (4.7-6.1)
[2021-04-16 07:22] LABS: BUN Creatinine Ratio 13.6 (10-20); Calcium 9.1 mg/dl (8.5-10.1); Creatinine Clr Calc Pharmacy 41.5 ml/min; Est GFR (African American) 58.1 ml/min; Est GFR (Non-African American) 50.1 ml/min; Potassium 4.1 mmol/L (3.5-5.1)
[2021-04-16] MEDS: PSYLLIUM 58.6% POWDER PACKET PO SCH (08:38)
[2021-04-16] MEDS: hydrALAZINE HCL 25 MG TAB PO SCH ×3 (08:45→20:02)
[2021-04-16] MEDS: APIXABAN 5 MG TABLET PO SCH ×2 (08:45→20:01)
[2021-04-16] MEDS: METOPROLOL SUCC 25MG EXT REL TAB PO SCH (08:46)
[2021-04-16] MEDS: lisinopril 10 MG TAB PO SCH (08:46)
[2021-04-16] MEDS: BUMETANIDE 1 MG TAB PO SCH (08:47)
[2021-04-16] MEDS: CITALOPRAM 40 MG TAB PO SCH (08:47)
[2021-04-16] MEDS: FAMOTIDINE 20 MG in SYRINGE 3 ML IV SCH (09:56)
--- NOTE | 2021-04-16 10:20 | Gastroenterology Progress Note ---
Date of Service April 16, 2021 Assessment & Plan (1) Diverticulitis large intestine: (2) Choledocholithiasis: 1. Diverticulitis: * Continue IV Zosyn. * If pain does not improve, recommend general surgery consultation for diverticulitis. * Continue supportive care. * Outpatient colonoscopy in 6 weeks. 2. Suspected choledocholithiasis and recent acute pancreatitis: * [facility] regard to timing of EUS/ERCP, most likely outpatient work up. 3. Chronic diarrhea: * Await fecal fat testing and Celiac serologies as ordered by primary team. Thank you for allowing us to participate in the care of this pleasant patient. If you have any questions or concerns, please do not hesitate to contact us. Admission and Anticipated Discharge Date Admission Date: April 14, 2021 Subjective Patient states his pain is "about the same" as upon admission. Rates 7/10 in intensity despite Zosyn. Reports he did have some mild diarrhea this morning. No melena or hematochezia. The patient does feel that his abdomen is softer and less distended, however. No f/c or other GI complaints. Remains NPO. Review of Systems Constitutional: as per Subjective / HPI Gastrointestinal: as per Subjective / HPI Physical Exam Constitutional: WD/WN, vitals as above well developed and well nourished Respiratory: normal respiratory effort, lungs clear to auscultation Cardiovascular: Rate/Rhythm: regular rate and regular rhythm Heart Sounds: + murmur Gastrointestinal (Abdomen): Inspection/Auscultation: normal bowel sounds Percussion/Palpation: + abdomen tender (LLQ) and abdomen soft Psychiatric: A+Ox3, euthymic affect Results & Data Results & Data ([facility]) Vital Signs (Past 12 Hours) Vital Signs Temp Pulse Resp BP Pulse Ox 04/16/21 07:16 36.6 C 62 16 112/65 95 Laboratory Results Abnormal lab results 04/16/21 Range/Units 05:27 WBC 3.20 L (4.8-10.8) K/uL RBC 4.03 L (4.7-6.1) M/uL Hgb 12.8 L (14.0-18.0) g/dL Hct 38.7 L (42-52) % Lymph # (Auto) 0.82 L (1.2-3.4) K/uL PG Care Time/CCT Total # of Minutes Spent Total Time Spent with Patient: Total time spent is greater than 50% in coordination of care (as documented) at patient's floor/unit and/or counseling patient: Coding Level of Care Code 13684 Subseq Hosp Care Lvl 3 Diagnoses Diverticulitis large intestine K57.32 Diverticulitis bleeding: without bleeding Diverticulitis complication: without perforation or abscess Choledocholithiasis K80.50 (1) Diverticulitis large intestine Diverticulitis bleeding: without bleeding Diverticulitis complication: without perforation or abscess Qualified Code(s): K57.32 - Diverticulitis of large intestine without perforation or abscess without bleeding
--- NOTE | 2021-04-16 16:41 | Magnetic Resonance Report ---
MRCP CLINICAL HISTORY: Pancreatitis. COMPARISON STUDY: Abdominal CT dated 04/13/2021. TECHNIQUE: Abdominal MRCP is performed utilizing various T2-weighted sequences in the axial and coron al planes. 3-D reformats are created and assessed. IV contrast was not administered for this examinat ion. FINDINGS: The gallbladder is surgically absent. There is mild intrahepatic biliary ductal dilatation. The commo n bile duct measures up to 5 mm in diameter. There are filling defects within the distal common bile duct above the ampulla suspicious for choledocholithiasis. The pancreatic duct is normal in caliber. The unenhanced liver, spleen, adrenal glands, and kidneys are grossly normal. The pancreas is atrophi c. There is no peripancreatic inflammation or fluid to suggest acute pancreatitis. There is no bowel obstruction. A duodenal diverticulum is noted. There is no upper abdominal ascites. A trace right ple ural effusion is suggested.The bony structures are grossly intact. The heart is enlarged and without pericardial effusion. IMPRESSION: 1. Status post cholecystectomy. 2. There are filling defects within the distal common bile duct above the ampulla suspicious for chol edocholithiasis. 3. There is mild intrahepatic biliary ductal dilatation. 4. There is no MRI evidence of acute pancreatitis as per the clinical history. Electronically signed by: Adan Vallecillo M.D. 04/16/2021 4:39 PM
--- NOTE | 2021-04-16 16:53 | Hospitalist Progress Note ---
Date of Service April 16, 2021 Assessment & Plan (1) Diverticulitis: Proximal Descending and Sigmoid Colon without abscess * Patient showing favorable response * Is no longer having pain/tenderness in the lower quadrant * Will initiate clear liquids and advance to low residue as tolerated * Lengthy discussion with patient and his daughter regarding low residue diet for the next 6 weeks followed by high-fiber diet and avoiding seeds/nuts * Continue Zosyn today with plan to transition to Augmentin as an outpatient (2) Urinary tract infection: Acute * Continue Zosyn with plan to transition to Augmentin as an outpatient based on culture data (3) Diarrhea: Diarrhea since ~February with some noting prior episodes. None since hospitalization - Had enteric stool panel in February- negative for C. diff, salmonella, shigella, Campylobacter -This is chronic -Celiac panel obtained -Patient is s/p cholecystectomythis could be playing a role. We will add colestipol -Should maintain a low residue diet for the next 6 weeks and then add Benefiber or Metamucil -Should follow up with established GI. Would advise upper and lower endoscopy- (4) Choledocholithiasis: -Currently without pain. Lipase level normal. -I suspect patient had passed a stone which is what caused his elevated lipase prior to this hospitalization. Likely with sludge in the residual duct as seen on MRCP -Should follow-up with GI as an outpatient (has an appointment scheduled for Wednesday per daughter) to pursue ERCP. (5) Hypertension: Appears well controlled - Continue Bumex, hydralazine, lisinopril (6) BPH (benign prostatic hyperplasia): Reports no symptoms at current and without medication managment - UTI as above (7) Mild obstructive sleep apnea: * Continue use with CPAP (8) Dementia: With depression - citalopram, donepezil - With the above diarrhea and abdominal pain- he is frustrated and likely perseverating over his symptoms - Was also discussion with GI and PCP regarding his SSRI dose vs. Agent (9) GERD (gastroesophageal reflux disease): History of ulceration that is healed but persistent gastritis - was on omeprazole 40mg BID - not sure if he stopped this secondary to his diarrhea - Famotidine 20mg BID for now - PPI given in EMD x1 dose. Plan of care to be discussed with Dr. Ruiz. Further orders as warranted. Lengthy discussion with patient's daughter Nancy Admission and Anticipated Discharge Date Admission Date: April 16, 2021 Subjective Patient seen on daily rounds today. Vocalizes no complaints or concerns. Reports that the pain in his lower abdomen/suprapubic region has completely resolved. Denies nausea. Did have a BM this morning that was semiformed. Denies fevers, chills, chest pain, shortness of breath, dysuria, hematuria, frequency. Nursing voices no complaints or concerns. Regarding CT scan done in March (prior to this hospitalization) showing a 4 mm stone in the common bile duct along with the associated elevated lipase (again prior to this hospitalization)an MRCP has been ordered. Review of Systems Review of Systems: Denies fevers, chills, headache, nasal congestion, sore throat, cough, chest pain, shortness of breath, abdominal pain, nausea, vomiting, GI/ symptomatology. Physical Exam Physical Exam: General: Resting comfortably in his hospital bed. A&O X3 NAD. Cardiac: RRR with 1/6 EDU Lungs: CTA without W/R/R Abdomen: Normoactive X4. Soft and nontender in all quadrants. Extremities: No peripheral clubbing cyanosis or edema Results & Data Results & Data ([facility]) Vital Signs (Past 12 Hours) Vital Signs Temp Pulse Pulse Resp BP Pulse Ox 04/16/21 16:27 36.2 C L 67 18 161/77 H 94 04/16/21 14:20 68 107/71 04/16/21 07:16 36.6 C 62 16 112/65 95 Laboratory Results 04/16/21 05:27 04/16/21 05:27 Diagnostic Findings MRCP: IMPRESSION: 1. Status post cholecystectomy. 2. There are filling defects within the distal common bile duct above the ampulla suspicious for choledocholithiasis. 3. There is mild intrahepatic biliary ductal dilatation. 4. There is no MRI evidence of acute pancreatitis as per the clinical history. PG Care Time/CCT Total # of Minutes Spent Total Time Spent with Patient: Total time spent is greater than 50% in coordination of care (as documented) at patient's floor/unit and/or counseling patient: [place] [address] Subseq Hosp Care Lvl 2 Patient Type Established History Expanded Problem Focused Exam Expanded Problem Focused Medical Decision Making Low Complexity Diagnoses Diverticulitis K57.92 Urinary tract infection N39.0 Hematuria presence: without hematuria Urinary tract infection type: site unspecified Diarrhea R19.7 Diarrhea type: unspecified type Choledocholithiasis K80.50 Hypertension I10 Hypertension type: essential hypertension BPH (benign prostatic hyperplasia) N40.0 Lower urinary tract symptom presence: symptoms absent Mild obstructive sleep apnea G47.33 Dementia F03.90 Dementia type: unspecified type Dementia behavioral disturbance: without behavioral disturbance GERD (gastroesophageal reflux disease) K21.9 Esophagitis presence: esophagitis presence not specified (1) Urinary tract infection Hematuria presence: without hematuria Urinary tract infection type: site unspecified Qualified Code(s): N39.0 - Urinary tract infection, site not specified (2) Diarrhea Diarrhea type: unspecified type Qualified Code(s): R19.7 - Diarrhea, unspecified (3) Hypertension Hypertension type: essential hypertension Qualified Code(s): I10 - Essential (primary) hypertension (4) BPH (benign prostatic hyperplasia) Lower urinary tract symptom presence: symptoms absent Qualified Code(s): N40.0 - Benign prostatic hyperplasia without lower urinary tract symptoms (5) Dementia Dementia type: unspecified type Dementia behavioral disturbance: without behavioral disturbance Qualified Code(s): F03.90 - Unspecified dementia without behavioral disturbance (6) GERD (gastroesophageal reflux disease) Esophagitis presence: esophagitis presence not specified Qualified Code(s): K21.9 - Gastro-esophageal reflux disease without esophagitis
[2021-04-16] MEDS: DONEPEZIL HCL 10 MG TAB PO SCH (20:01)
[2021-04-16] MEDS: FAMOTIDINE 20 MG TAB PO SCH (20:02)
[2021-04-17] MEDS: PIPERACILLIN/TAZOBACTAM 3.375 GM in DEXTROSE 5% 100 ML IV SCH ×2 (00:31→09:42)
[2021-04-17 05:51] LABS: Basophils # (auto) 0.01 K/uL (0-0.2); Basophils % (auto) 0.3 %; Eosinophils # (auto) 0.05 K/uL (0-0.5); Eosinophils % (auto) 1.4 %; Hematocrit (blood only) 38.9 % (42-52); Hemoglobin 13.3 g/dL (14.0-18.0); Immature Granulocytes # (auto) 0.01 K/uL (0.00-0.02); Immature Granulocytes % (auto) 0.3 %; Lymphocytes # (auto) 1.07 K/uL (1.2-3.4); Lymphocytes % (auto) 30.3 %; Mean Corpuscular Hemoglobin 31.7 pg (25-34); Mean Corpuscular Hgb Conc 34.2 g/dL (32-36); Mean Corpuscular Volume 92.6 fL (80-100); Mean Platelet Volume 8.9 fL (7.4-10.4); Monocytes # (auto) 0.36 K/uL (0.11-0.59); Monocytes % (auto) 10.2 %; Neutrophils # (auto) 2.03 K/uL (1.4-6.5); Neutrophils % (auto) 57.5 %; Platelet Count 202 K/uL (130-400); RDW Standard Deviation 43.9 fL (36.4-46.3); White Blood Count 3.53 K/uL (4.8-10.8)
[2021-04-17 06:22] LABS: BUN Creatinine Ratio 12.3 (10-20); Calcium 9.3 mg/dl (8.5-10.1); Creatinine Clr Calc Pharmacy 33.8 ml/min; Est GFR (African American) 45.3 ml/min; Est GFR (Non-African American) 39.1 ml/min; Potassium 3.9 mmol/L (3.5-5.1)
[2021-04-17] MEDS ORDERED: PIPERACILL/TAZOBAC CONSULT ACTIVE PRN (07:37)
[2021-04-17] MEDS: BUMETANIDE 1 MG TAB PO SCH (08:00)
[2021-04-17] MEDS: CITALOPRAM 40 MG TAB PO SCH (08:00)
[2021-04-17] MEDS: FAMOTIDINE 20 MG TAB PO SCH (08:00)
[2021-04-17] MEDS: hydrALAZINE HCL 25 MG TAB PO SCH ×2 (08:00→13:24)
[2021-04-17] MEDS: lisinopril 10 MG TAB PO SCH (08:00)
[2021-04-17] MEDS: ASTELIN - ORDER AWAITING ACTION SCH (08:01)
[2021-04-17] MEDS: METOPROLOL SUCC 25MG EXT REL TAB PO SCH (08:01)
[2021-04-17] MEDS: PSYLLIUM 58.6% POWDER PACKET PO SCH (08:02)
[2021-04-17] MEDS: APIXABAN 5 MG TABLET PO SCH (08:30)
--- NOTE | 2021-04-17 15:14 | Discharge Summary ---
Date of Service April 17, 2021 Admission HPI Per Admitting Provider 89 YOM with past medical history of: Aflutter with cardioversion in 2020 (on BB and Eliquis), HTN, CKD III, chronic cervical pain treated with radiofrequency ablations, GERD, BPH, [place]IA[place], OA, Diverticulitis, Chronic Diarrhea, choledocholithiasis, cholecystectomy, [place] [place]. Patient comes back to the emergency room today [id number] for complaints of increasing diarrhea and left sided abdominal pain. He was seen here and had a CT scan of his abdomen performed yesterday which revealed 2 separate focal areas of acute diverticulitis involving the mid descending colon and mid sigmoid colon. No perforation or abscess identified. He was started back on Augmentin and discharged as no abscess or signs of sepsis or perforation. Patient had been treated for presumed diverticulitis in February 2021 as well. The patient has been having on going abdominal pain and diarrhea since February to include Cdiff, CTs of the abdomen and pelvis and adjustment of his medications to include his oral potassium, adding Imodium and Questran and Metamucil to bulk up his stools. Patient states that his stools change color very frequently from green to maroon to black, and he has noted some mucous in them but never bloody. He is unable to associate a time frame from eating to when he has to use the bathroom. He also endorses that there is very little if any formed material in his stools. He says he drinks spring water and that his diet is now a bland diet at home. He does not have any increased bloating with this, but has frequent burping and dyspepsia with burning in his throat. He has been seen by [facility]. Recent EGDs. He has not had a recent colonoscopy. He does have some left lower quadrant pain with palpation, but no guarding or rebound. KUB performed in the EMD without perforation or changes. Patient will be admitted kept NPO tonight, IVF, Zosyn coverage for his diverticulitis and acute UTI that has GN Bacilli () and symptom assessment/management. Patient was also noted to have an elevated lipase on [id number] to 1323 which down trended to 998 on [id number] and is 267 on admission. He endorses no central abdominal pain and has a negative Iraheta sign. Admission Exam Per Admitting Provider General: awake, alert, no apparent distress Head: Normocephalic, atraumatic ENT: PERRL, EOMI, no pharyngeal exudate, mucous membranes moist Neuro: AAO x 3, speech clear and appropriate, strength intact bilaterally 5/5, sensation intact and equal all extremities and dermatomes, no pronator drift Chest: equal rise and fall of the chest, no accessory muscle use, no heaves or thrills, Clear to auscultation, on room air, Cardiac: Regular rate and rhythm, telemetry reviewed-NSR, skin warm dry, cap refill <3 seconds, peripheral pulses +2 no JVD, no murmur, no JVD, trace lower extremity edema GI: NABS x 4 quadrants with a lot of flatus, soft, tender to palpation LLQ, no rebound, guarding or tenderness, negative iraheta's sign, tympany on percussioni : Spontaneously voiding, no pain, no CVA tenderness, Extremities: Normal inspection, no peripheral edema or erythema, calfs nontender to palpation Psych: anxious Skin: no rash or erythema Principal Diagnosis Working diagnoses: 1. Acute diverticulitis 2. Multidrug-resistant UTI 3. Chronic choledocholithiasis with recent pancreatitisresolved 3. Diarrheachronic Chronic medical conditions: 1. HTN 2. BPH 3. Mild OSAuses CPAP 6. Dementia 7. CKD 8. Atrial flutters/p cardioversion 9. Chronic anticoagulation therapy 10. HLD Discharge Exam General: Resting comfortably in his hospital bed. Awake and pleasant, does not appear ill or toxic Cardiac: Currently in normal sinus rhythm with controlled ventricular rate Lungs: CTA without W/R/R Abdomen: Normoactive X4. Abdomen is soft with mild epigastric/left upper quadrant pain mostly in the axillary line. No tenderness in the LLQ or suprapubic region Extremities: No peripheral clubbing cyanosis or edema Discharge Data Allergies Allergy/AdvReac Type Severity Reaction Status Date / Time vancomycin Allergy Intermediate LOWER Verified 04/14/21 16:34 EXTREMITY SWELLING, FEVER Sulfa (Sulfonamide Allergy Mild Rash Verified 04/14/21 16:34 Antibiotics) gabapentin AdvReac Mild drowsy,conf Verified 04/14/21 16:34 used Consultations 04/14/21 22:31 GI consultation (1) Diverticulitis large intestine: (2) Choledocholithiasis: 1. Diverticulitis: Continue IV Zosyn. If pain does not improve, recommend general surgery consultation for diverticulitis. Continue supportive care. Outpatient colonoscopy in 6 weeks. 2. Suspected choledocholithiasis and recent acute pancreatitis: Will discuss with Dakota MCKENZIE in regard to timing of EUS/ERCP, most likely outpatient work up. 3. Chronic diarrhea: Await fecal fat testing and Celiac serologies as ordered by primary team. Thank you for allowing us to participate in the care of this pleasant patient. If you have any questions or concerns, please do not hesitate to contact us. Procedures Performed none Ordered Studies 04/13/2021- CT of the abdomen and pelvis with IV contrast IMPRESSION: 1. There are 2 separate focal areas of acute diverticulitis involving the mid descending colon and mid sigmoid colon. No perforation or abscess identified at this time. 2. Prostatomegaly, unchanged. 3. Additional degenerative changes as described above. 04/14/2021KUB: IMPRESSION: 1. Nonobstructive bowel gas pattern. 2. No pneumoperitoneum identified. 04/14/2021XR: FINDINGS: Chronic right hemidiaphragmatic elevation. Cardiomediastinal and hilar silhouettes are within normal limits. Interstitial coarsening of the lung bases suggestive of atelectasis/scarring. No pneumothorax, pleural effusion, airspace consolidation or overt pulmonary edema. Reverse right shoulder total joint arthroplasty. Degenerative changes of the spine and left shoulder. IMPRESSION: Chronic findings as above without acute process. 04/16/2021- MRCP: IMPRESSION: 1. Status post cholecystectomy. 2. There are filling defects within the distal common bile duct above the ampulla suspicious for choledocholithiasis. 3. There is mild intrahepatic biliary ductal dilatation. 4. There is no MRI evidence of acute pancreatitis as per the clinical history. Hospital Course (1) Diverticulitis: * Patient has shown favorable response to treatment * Transition back to Augmentin (which daughter confirms he has a prescription for at home) * Recommend low residue/low fiber diet for the next 4 to 6 weeks followed by introduction of Benefiber daily. * Patient should also avoid seeds/nuts * Follow-up with GI. Recommend upper and lower endoscopy (2) Urinary tract infection: Acute * Complete full course of Augmentinbased on culture data (3) Diarrhea: Diarrhea since ~February with some noting prior episodes. None since hospitalization - Had enteric stool panel in May- negative for C. diff, salmonella, shigella, Campylobacter -This is chronic -Celiac panel obtained -Patient is s/p cholecystectomythis could be playing a role. -Should maintain a low residue diet for the next 6 weeks and then add Benefiber or Metamucil -Should follow up with established GI on Wednesday as scheduled. Would advise upper and lower endoscopy- (4) Choledocholithiasis: -Currently without pain. Lipase level normal. -I suspect this may be in part to blame for his intermittent left upper/epigastric discomfort. He seems to have sludge seen in the residual common bile duct. He should maintain a low-fat diet and follow-up with GI on Wednesday to discuss ERCP (5) Hypertension: Appears well controlled - Continue Bumex, hydralazine, lisinopril (6) BPH (benign prostatic hyperplasia): Reports no symptoms at current and without medication managment - UTI as above (7) Mild obstructive sleep apnea: * Continue use with CPAP (8) Dementia: With depression - citalopram, donepezil - With the above diarrhea and abdominal pain- he is frustrated and likely perseverating over his symptoms - Was also discussion with GI and PCP regarding his SSRI dose vs. Agent (9) GERD (gastroesophageal reflux disease): History of ulceration that is healed but persistent gastritis - was on omeprazole 40mg BID - not sure if he stopped this secondary to his diarrhea - Famotidine 20mg BID for now - PPI given in EMD x1 dose. Plan of care to be discussed with Dr. Ruiz. Further orders as warranted. Lengthy discussion with patient's daughter Nancy (10) Atrial flutter: * Currently in a normal sinus rhythm with controlled ventricular rate * On chronic anticoagulation therapy. Will transition Eliquis from 5 mg to 2.5 mg based on age and renal function Plan of care has been discussed with and agreed upon by Dr. Ruiz Total Time Total Time Spent Total Time Spent (In Minutes): 90 min including time spent talking with daughter and examining and D/W patient Total Time Includes: Examination of the Patient, Discharge Planning, Medication Reconciliation and Communication With Other Providers Discharge Plan Discharge Items Patient Disposition: Home - Self-Care Reason For Visit: acute diverticulitis and uti Discharge Diagnosis: 1. acute diverticulitis with UTI 2. choledocholithiasis Activity: Resume your previous activity Non-emergency contact: Primary Care Provider and [employer] L[employer] Call non-emergency contact if: you have any medication questions and your symptoms worsen Follow-up/Referrals: Sally Schaeffer CRNP [Primary Care Provider] - 04/24/21 10:00 am (Pt is schedueld to see Dr Patrick Bautista on 04/24/21 @ 10am. ) Diet: Low Fiber and Low Fat Addtl Attending Provider Instructions: Diet: LOW FIBER UP FRONT THEN FIBER SUPPLEMENT: You should maintain a low fiber diet for the next 4-6 weeks given this recent bout of diverticulitis. Following: I would advise a high fiber diet (addition of Benefiber daily) to help bulk up your stools to reduce risk of subsequent flare. AVOID SEEDS/NUT/CORN/PEAS as these increase your risk of another flare of diverticulitis LOW FAT DIET this is because of the sludge noted in your common bile duct on the MRCP. You likely will need something called and ERCP (to see GI on Wednesday to discuss) to remove this sludge. Eating a high fat diet causes increased bile production and movement of that sludge in the duct which can cause pain/discomfort Recommendations: -take all of your medications as outlined -you need to complete the full course of antibiotic that was started prior to you coming to the hospital (Augmentin): twice daily until complete -Augment may increase your diarrhea. Can take a probiotic (which you can get over the counter) -please note that your Eliquis (your blood thinner) has been decreased to 2.5mg twice a day (given your age and renal function). -follow up with GI as scheduled (Wednesday) -return to the ED for new or worsening symptoms Pending Studies at Discharge: No Stand-Alone Forms: My [employer], Smoking Cessation Medications and DC Order Prescriptions: New Eliquis 2.5 mg tablet 2.5 mg PO BID Qty: 60 RF: 0 Continued citalopram 40 mg tablet 40 mg PO QAM Qty: 90 RF: 3 lisinopril 10 mg tablet 10 mg PO DAILY Qty: 30 RF: 3 metoprolol succinate 25 mg tablet extended release 24 hr 25 mg PO DAILY Qty: 90 RF: 3 bumetanide 1 mg tablet 1 mg PO DAILY RF: 0 hydralazine 25 mg tablet 25 mg PO TID RF: 0 azelastine 205.5 mcg (0.15 %) spray,non-aerosol 1 spray intranasal BID Qty: 30 RF: 3 lidocaine 5 % adhesive patch,medicated 1 patch transdermal QAM PRN (Reason: Pain) RF: 0 cranberry 500 mg capsule 1,000 mg PO QAM RF: 0 acetaminophen 500 mg capsule 1,000 mg PO Q6H PRN (Reason: pain) RF: 0 donepezil 23 mg tablet 23 mg PO HS RF: 0 amoxicillin-pot clavulanate 875-125 mg tablet RF: 0 Discontinued Eliquis 5 mg tablet 5 mg PO BID Qty: 180 RF: 3 Discharge Orders: Discharge Order (Routine); Ordered 04/17/21 Ordered By: Maria Fernanda Coyle/Other Patient Handouts: Low-Fiber Diet, Diverticulosis Diverticulitis, ED Diet, Low Fat, ED Gallstones with Biliary Colic Admission Data Admit Date/Time: 04/16/21 15:04 Attending Provider: Harjit Ruiz Admit Provider: Jaye Shah Primary Care Provider: Sally Schaeffer. Other Providers: Jaye Shah ; Mich Newell Other Interventions: Discharge Summary Assessment (RN) Last Done: 04/17/21 15:28 Supervising Physician Co-Signing Physician Notes Patient seen and examined on the day of discharge. I agree with the discharge summary by Maria Fernanda ROME. I have reviewed the chart including labs, imaging and plans for discharge. patient doing better after three days of Zosyn for diverticulitis and UTI appreciate input from gastroenterology eating well, no abdominal pain - Diverticulitis: treated with Zosyn, discharge on Augmentin - UTI: will be covered by Augmentin based on culture/sensitivity - Common bile duct dilation: no stone on MRCP, could have been sludge? passed a stone? lipase is normal will follow up with gastroenterology Coding Level of Care Code D/C Day Management >30 mins Diagnoses Diverticulitis K57.92 Urinary tract infection N39.0 Hematuria presence: without hematuria Urinary tract infection type: site unspecified Diarrhea R19.7 Diarrhea type: unspecified type Choledocholithiasis K80.50 Hypertension I10 Hypertension type: essential hypertension BPH (benign prostatic hyperplasia) N40.0 Lower urinary tract symptom presence: symptoms absent Mild obstructive sleep apnea G47.33 Dementia F03.90 Dementia behavioral disturbance: without behavioral disturbance Dementia type: unspecified type GERD (gastroesophageal reflux disease) K21.9 Esophagitis presence: esophagitis presence not specified Atrial flutter I48.92
[2021-04-17 15:31] LABS: IgA Serum 78 mg/dL (70-320); Tis Trans IgA 1 U/mL
== END 2021-04-17 16:10 | disposition home or self-care (01) | DRG 392 ==
LOC: 3E 12:55 → ED 12:55 → SUATTDRO 21:02 → 3E 21:57

== ENCOUNTER 2021-04-18 20:27 | Observation (INO) ==
[2021-04-18] MEDS ORDERED: SODIUM CHLORIDE 0.9% 500 ML IV ONE (21:28)
[2021-04-18] MEDS ORDERED: fentaNYL citrate 100 MCG/2 ML VIAL IV PRN (21:28)
[2021-04-18] MEDS ORDERED: ONDANSETRON INJ 2 MG/ML 2 ML VIAL IV STA (21:28)
[2021-04-18 21:32] LABS: Basophils # (auto) 0.02 K/uL (0-0.2); Basophils % (auto) 0.5 %; Eosinophils # (auto) 0.06 K/uL (0-0.5); Eosinophils % (auto) 1.4 %; Hemoglobin 13.6 g/dL (14.0-18.0); Immature Granulocytes # (auto) 0.01 K/uL (0.00-0.02); Immature Granulocytes % (auto) 0.2 %; Lymphocytes % (auto) 22.8 %; Mean Corpuscular Hemoglobin 32.2 pg (25-34); Mean Corpuscular Volume 94.6 fL (80-100); Mean Platelet Volume 9.1 fL (7.4-10.4); Monocytes # (auto) 0.49 K/uL (0.11-0.59); Monocytes % (auto) 11.2 %; Neutrophils # (auto) 2.81 K/uL (1.4-6.5); Neutrophils % (auto) 63.9 %; Platelet Count 223 K/uL (130-400); RDW Coefficient of Variation 13.2 % (11.5-14.5); RDW Standard Deviation 45.4 fL (36.4-46.3); Red Blood Count 4.23 M/uL (4.7-6.1); White Blood Count 4.39 K/uL (4.8-10.8)
--- NOTE | 2021-04-18 21:47 | XRay Report ---
XR chest 1V portable HISTORY: 89 years-old Male upper abd pain acute chest and upper abdominal pain COMPARISON: Chest radiograph 04/14/2021 TECHNIQUE: Portable AP view of the chest FINDINGS: Cardiomediastinal and hilar silhouettes are within normal limits. Moderate hemidiaphragmatic elevatio n. No pneumothorax, pleural effusion, airspace consolidation or overt pulmonary edema. Degenerative c hanges of the spine and left shoulder. Reverse right shoulder total joint arthroplasty. IMPRESSION: No acute process. ACT 112: Negative or not required by law. The above report was generated using voice recognition software. It may contain grammatical, syntax o r spelling errors. Electronically signed by: Brayden Gonsalez M.D. 04/18/2021 9:46 PM
[2021-04-18 21:49] LABS: Albumin Level 3.4 gm/dl (3.4-5.0); Calcium 9.1 mg/dl (8.5-10.1); Creatinine Clr Calc Pharmacy 26.1 ml/min; Est GFR (African American) 33.1 ml/min; Est GFR (Non-African American) 28.6 ml/min; Potassium 3.8 mmol/L (3.5-5.1)
[2021-04-18 21:52] LABS: Bilirubin,Total 0.4 mg/dl (0.2-1); Globulin 3.3 gm/dl (2.5-4.0); Total Protein 6.7 gm/dl (6.4-8.2)
[2021-04-18] MEDS ORDERED: SODIUM CHLORIDE 0.9% 1000ML 500 ML IV ONE (22:26)
--- NOTE | 2021-04-18 22:26 | Emergency Department Note ---
Impression & Plan Diverticulitis, Abdominal pain, acute, left lower quadrant, VIMAL (acute kidney injury) ED Provider Note NAME: Makenna SERRANO AGE: 89 SEX: M : 1930 ARRIVES VIA: Walk-In INFORMANT: Patient, the patient's family member ED PROVIDER(S): Ger Tinoco DO CHIEF COMPLAINT: Abdominal pain HPI: The patient is an 89-year-old male who presented to the emergency department with a family member for an evaluation of abdominal pain. The patient was recently in our facility for similar complaints. He was diagnosed with diverticulitis but also diagnosed with the possibility of a retained ductal stone from her previous cholecystectomy. The patient was feeling better and was discharged home yesterday from our facility. He returns tonight because of worsening pain. The patient has been compliant with all of his outpatient medications. He started having worsening pain this evening. He has had decreased p.o. intake. He did not have a definite fever according to the family member. He has nausea but no vomiting. She is noticed no rectal bleeding. The patient has been taking the antibiotic as prescribed as well. The patient's pain is moderate to severe and worsens with any ambulation or palpation over the lower abdomen. ROS: See above HPI for pertinent positives & negatives. A total of 10 systems reviewed and were otherwise negative. PAST MEDICAL HISTORY: See Below PAST SURGICAL HISTORY: See Below FAMILY HISTORY: See Below SOCIAL HISTORY: See Below HOME MEDICATIONS: See Below ALLERGIES: See Below VITALS: See Below PHYSICAL EXAMINATION: GENERAL: The patient is awake and alert. He is somewhat anxious appearing. EYES: The conjunctivae are clear. The pupils are round and reactive. EARS, NOSE, MOUTH AND THROAT: The nose is without any evidence of any deformity. NECK: The neck is nontender and supple. RESPIRATORY: Normal respiratory effort is noted there is no evidence of wheezing rhonchi or rales CARDIOVASCULAR: Regular rate and rhythm noted there no murmurs rubs or gallops normal S1 normal S2. GASTROINTESTINAL: The abdomen is soft and nondistended. There is significant le ft lower quadrant tenderness to palpation. There is no guarding. MUSCULOSKELETAL/EXTREMITIES: There is no evidence of gross deformity full range of motion is noted in the hips and shoulders. SKIN: Skin is warm and dry. Trace pedal edema was noted bilaterally. NEUROLOGIC: Patient is awake alert and oriented x3. MEDICAL DECISION MAKING: The patient is an 89-year-old male who presented to the emergency department for an evaluation of the abdominal pain. The patient was treated with IV fluids and IV pain medication in the emergency department. He was reevaluated multiple times. The patient had continued ongoing left lower quadrant pain. He also has known sludge in his cystic duct remnant. He has had testing for this in the past. His LFTs did not appear to be elevated compared to baseline. I discussed the patient's laboratory and radiographic studies with him and his family member. Ultimately he was still having very significant pain. For this reason I will discuss his case with the on-call [facility] hospitalist. The patient was also found to have an elevation in his creatinine compared to baseline. Triage Nursing notes reviewed. Prior medical records reviewed Vital Signs: reviewed and remarkable for no significant abnormalities Differential diagnosis: Etiologies such as appendicitis, diverticulitis, obstruction, inflammatory bowel disease, renal colic, PUD, biliary pathology, pancreatitis, mesenteric ischemia, aortic pathology, infections, genitourinary, UTI, perforated viscus, as well as others were entertained. ER treatment provided: See below Diagnostics interpreted by me: ECG: none Cardiac Monitoring: An order was placed for continuous cardiac monitoring. The monitor shows a rate of 75 bpm with sinus rhythm. Laboratory studies: As stated above and show below. Imaging studies: See below Consultation(s): 0030: Dr. Shah was notified about the patient. She is on-call for the [facility] hospitalist group. They will evaluate the patient in the emergency department for further management. 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 Myofascial pain Nocturnal hypoxemia Occipital neuralgia of left side Osteoarthritis Pancreatitis Surgical History H/O colonoscopy (06/2013) History of cystoscopy History of difficult intubation CHOLECYSTECTOMY= 01/11/14= GLIDESCOPE #4 (2/2 DECREASED CERVICAL ROM) BUT HAD GRADE VIEW 1, MAC 4 WITH ANKLE SURGERY 11/09/14 PER [facility] RECORDS History of esophagogastroduodenoscopy (EGD) (09/2019) History of shoulder surgery Rt shoulder - 09/22/18 [facility] History of total knee replacement B/L WITH REVISIONS; LEFT TKA REVISION= 05/13/17= SAB X 2 ATTEMPTS + PNB AT [facility] Hx of cervical spine surgery ROM LIMITED FROM SIDE TO SIDE Hx of total ankle replacement RIGHT S/P cholecystectomy Squamous cell carcinoma of back resolved Family History Son Family history of diabetes mellitus Other No family history of adverse response to anesthesia No pertinent family history Denies family history of Ovarian cancer Prostate cancer Myocardial infarction Breast cancer Colorectal cancer Social History Smoking Status: Never smoker Second Hand Exposure: No; Hx Alcohol Use: No Hx Substance Use: No Preferred Language: [place] Communication Ability: Effective Visual Impairment: No Limitations Mh Teacher Required: No Beliefs That Will Affect Care: None marital status: Current Living Situation: Spouse Current Living Situation Comment: lives with , family helps current occupational status: 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 Feels Safe at Home: Yes Childhood Exposure to Second-Hand Smoke: No caffeine: Yes Dental Care, Regularly: Yes Physical Activity Frequency: Daily Seatbelt Use: always Sunscreen Use: Yes (sometimes) Assistive Devices: Glasses and Hearing Aid - Bilateral Allergies Allergies Allergy/AdvReac Type Severity Reaction Status Date / Time vancomycin Allergy Intermediate LOWER Verified 04/18/21 13:48 EXTREMITY SWELLING, FEVER Sulfa (Sulfonamide Allergy Mild Rash Verified 04/18/21 13:48 Antibiotics) gabapentin AdvReac Mild drowsy,conf Verified 04/18/21 13:48 used adhesive AdvReac peña tears Verified 04/19/21 00:06 Home Meds Home Medications Medication Instructions Recorded Confirmed cranberry 500 mg capsule 1,000 mg PO QAM 05/31/19 04/18/21 acetaminophen 500 mg capsule 1,000 mg PO TID 11/27/20 04/18/21 lidocaine 5 % topical patch 1 patch TRANSDERMAL QAM PRN ea 01/21/21 04/18/21 bumetanide 1 mg tablet 1 mg PO DAILY 04/08/21 04/18/21 hydralazine 25 mg tablet 25 mg PO TID 04/08/21 04/18/21 donepezil 23 mg PO HS 04/12/21 04/18/21 amoxicillin-pot clavulanate 1 tab PO BID 04/17/21 04/18/21 [Augmentin] metoprolol succinate 25 mg PO DAILY 04/18/21 04/18/21 Previous Rx's Medication Instructions Recorded citalopram 40 mg tablet 40 mg PO QAM #90 tab 08/26/20 azelastine 205.5 mcg (0.15 %) 1 spray INTRANASAL BID #30 ml 01/07/21 nasal spray lisinopril 10 mg tablet 10 mg PO DAILY #30 tab 03/03/21 apixaban [Eliquis] 2.5 mg PO BID #60 tab 04/17/21 famotidine 20 mg tablet 20 mg PO BID #60 tab 04/18/21 Results & Data (ED) Vital Signs Vital Signs - 24 hr 04/18/21 20:32 04/18/21 21:17 04/18/21 21:30 Temperature 36.3 C L Temperature Source Temporal Artery Scan Pulse Rate 84 71 71 Pulse Rate from SpO2 Sensor Respiratory Rate 18 24 18 Respiratory Effort / Characteristics Non-Labored Spontaneous Respiratory Depth Normal Respiratory Pattern Regular Blood Pressure 114/72 136/61 138/68 Blood Pressure Mean 86 86 91 Blood Pressure Position Sitting Pulse Oximetry 94 Oxygen Delivery Method Room Air Sepsis Recent Fever Within 48 Hours No Sepsis New/Unexplained Change in Mental Status No Sepsis Action Taken by Nursing No Action Required 04/18/21 22:00 04/18/21 22:30 04/18/21 23:31 Temperature Temperature Source Pulse Rate 73 72 72 Pulse Rate from SpO2 Sensor 71 Respiratory Rate 17 20 24 Respiratory Effort / Characteristics Respiratory Depth Respiratory Pattern Blood Pressure 127/64 126/57 L 130/57 L Blood Pressure Mean 85 80 81 Blood Pressure Position Pulse Oximetry 92 Oxygen Delivery Method Room Air Sepsis Recent Fever Within 48 Hours Sepsis New/Unexplained Change in Mental Status Sepsis Action Taken by [facility] Medications Current Medication List: was personally reviewed by me Laboratory Data Attestation: I reviewed the patient's lab results. Result diagrams: 04/18/21 21:15 04/18/21 21:15 Lab Results 04/18/21 04/18/21 Range/Units 21:15 21:15 WBC 4.39 L (4.8-10.8) K/uL RBC 4.23 L (4.7-6.1) M/uL Hgb 13.6 L (14.0-18.0) g/dL Hct 40.0 L (42-52) % MCV 94.6 (80-100) fL MCH 32.2 (25-34) pg MCHC 34.0 (32-36) g/dL RDW Std Deviation 45.4 (36.4-46.3) fL RDW Coeff of [place]illy 13.2 (11.5-14.5) % Plt Count 223 (130-400) K/uL MPV 9.1 (7.4-10.4) fL Immature Gran % (Auto) 0.2 % Neut % (Auto) 63.9 % Lymph % (Auto) 22.8 % [place] % (Auto) 11.2 % Eos % (Auto) 1.4 % Baso % (Auto) 0.5 % Neut # (Auto) 2.81 (1.4-6.5) K/uL Lymph # (Auto) 1.00 L (1.2-3.4) K/uL [place] # (Auto) 0.49 (0.11-0.59) K/uL Eos # (Auto) 0.06 (0-0.5) K/uL Baso # (Auto) 0.02 (0-0.2) K/uL Immature Gran # (Auto) 0.01 (0.00-0.02) K/uL Sodium 136 (136-145) mmol/L Potassium 3.8 (3.5-5.1) mmol/L Chloride 100 (98-107) mmol/L Carbon Dioxide 28 (21-32) mmol/L Anion Gap 8.0 (3-11) BUN 24 H (7-18) mg/dl Creatinine 2.02 H D (0.6-1.4) mg/dl Est Cr Clr Drug Dosing 26.1 ml/min Est GFR ( Amer) 33.1 ml/min Est GFR (Non-Af Amer) 28.6 ml/min BUN/Creatinine Ratio 12.0 (10-20) Glucose 111 H (70-99) mg/dl Calcium 9.1 (8.5-10.1) mg/dl Total Bilirubin 0.4 (0.2-1) mg/dl AST 19 (15-37) U/L ALT 27 (12-78) U/L Alkaline Phosphatase 72 (45-117) U/L Total Protein 6.7 (6.4-8.2) gm/dl Albumin 3.4 (3.4-5.0) gm/dl Globulin 3.3 (2.5-4.0) gm/dl Albumin/Globulin Ratio 1.0 (0.9-2) Lipase 246 (73-393) U/L Administered Medications Fentanyl Citrate (Fentanyl Citrate 100 Mcg/2 Ml Vial) 50 mcg IV Q15M PRN PRN Reason: Pain Stop: 05/02/21 21:27 Last Admin: 04/18/21 21:54 Dose: 50 mcg Documented by: [id number] Morphine Sulfate (Morphine Sulfate 4 Mg/Ml 1 Ml Carp\\Vial) 4 mg IV Q30M PRN PRN Reason: Pain Stop: 05/02/21 23:34 Last Admin: 04/18/21 23:39 Dose: 4 mg Documented by: [id number] Discontinued Medications Sodium Chloride (Nss) 500 mls @ 999 mls/hr IV .Q31M ONE Stop: 04/18/21 21:58 Last Infusion: 04/18/21 23:34 Dose: 0 mls/hr Documented by: [id number] Admin: 04/18/21 21:54 Dose: 999 mls/hr Documented by: [id number] Sodium Chloride (Nss 1000ml) 500 mls @ 999 mls/hr IV .Q31M ONE Stop: 04/18/21 22:56 Last Infusion: 04/18/21 23:33 Dose: 0 mls/hr Documented by: [id number] Infusion: 04/18/21 23:00 Dose: 0 mls/hr Documented by: [id number] Admin: 04/18/21 22:34 Dose: 999 mls/hr Documented by: [id number] Cefoxitin Sodium (Mefoxin) 2,000 mg in 60 mls @ 100 mls/hr IV NOW STA Stop: 04/19/21 00:15 Last Infusion: 04/19/21 00:27 Dose: 0 mls/hr Documented by: [id number] Admin: 04/18/21 23:46 Dose: 100 mls/hr Documented by: [id number] Ondansetron HCl (Ondansetron Inj 2 Mg/Ml 2 Ml Vial) 4 mg IV NOW STA Stop: 04/18/21 21:29 Last Admin: 04/18/21 21:54 Dose: 4 mg Documented by: [id number] Imaging Data Radiologist's Impression: Chest X-Ray 04/18/21 21:30 XR chest 1V portable HISTORY: 89 years-old Male upper abd pain acute chest and upper abdominal pain COMPARISON: Chest radiograph 04/14/2021 TECHNIQUE: Portable AP view of the chest FINDINGS: Cardiomediastinal and hilar silhouettes are within normal limits. Moderate hemidiaphragmatic elevation. No pneumothorax, pleural effusion, airspace consolidation or overt pulmonary edema. Degenerative changes of the spine and left shoulder. Reverse right shoulder total joint arthroplasty. IMPRESSION: No acute process. ACT 112: Negative or not required by law. The above report was generated using voice recognition software. It may contain grammatical, syntax or spelling errors. Electronically signed by: Brayden Gonsalez M.D. 04/18/2021 9:46 PM Abdomen/Pelvis CT 04/18/21 22:[address] WITHOUT CONTRAST CT DOSE: 624.93 mGy.cm HISTORY: Acute left lower quadrant abdominal pain llq pain TECHNIQUE: Multiaxial CT images of the abdomen and pelvis were performed without contrast. A dose lowering technique was utilized adhering to the principles of ALARA. COMPARISON STUDY: MRCP 04/16/2021, CT abdomen and pelvis 04/13/2021 FINDINGS: Cardiomegaly. Coronary artery calcifications. Mild bibasilar atelectasis/scarring. There is no pneumatosis or pneumoperitoneum. Limited evaluation of the solid abdominal organs without the use of IV contrast. The spleen, pancreas and adrenal glands and liver appear unremarkable. Cho lecystectomy. There is a 5 mm radiodensity within the duodenum on image 178 series 3 which appears to be intraluminal rather than within the distal common bile duct. No significant biliary ductal dilation identified. Unremarkable kidneys. No hydronephrosis. Prostamegaly. Urinary bladder wall thickening with partial distention. Atherosclerosis of the aorta. No adenopathy. There is no bowel obstruction. Colonic diverticulosis. There is persistent yet decreased mild inflammatory stranding involving the previously described sites within the mid descending and mid sigmoid colon. No perforation or abscess. No CT evidence of acute appendicitis. No acute fracture. Degenerative changes of the spine, pelvis and hips. Chronic wedge deformity at T12. IMPRESSION: 1. Mild acute diverticulitis of the descending and sigmoid colon has slightly improved from the 04/13/2021 exam. No evidence of perforation or abscess. 2. Cholecystectomy. There is a 5 mm radiodensity within the duodenum which is likely intraluminal. A calculus within the ampulla is considered less likely. C orrelate with serum bilirubin. 3. Prostamegaly 4. Additional findings as above. ACT 112: Negative or not required by law. The above report was generated using voice recognition software. It may contain grammatical, syntax or spelling errors. Electronically signed by: Brayden Gonsalez M.D. 04/19/2021 12:01 AM Discharge Plan Visit Data Chief Complaint: Abdominal Pain Stated Complaint: DIVERTICULITIS FLARE UP, ABDOMINAL PAIN ED Provider: Ger Tinoco Discharge Problem: Diverticulitis, Abdominal pain, acute, left lower quadrant, VIMAL (acute kidney injury) Patient Disposition: Being Evaluated by Hospitalist Condition: Good Forms Stand Alone Forms: My [facility] [employer] [facility] Prescriptions Prescriptions: No Action citalopram 40 mg tablet 40 mg PO QAM Qty: 90 RF: 3 lisinopril 10 mg tablet 10 mg PO DAILY Qty: 30 RF: 3 bumetanide 1 mg tablet 1 mg PO DAILY RF: 0 hydralazine 25 mg tablet 25 mg PO TID RF: 0 famotidine 20 mg tablet 20 mg PO BID Qty: 60 RF: 4 azelastine 205.5 mcg (0.15 %) spray,non-aerosol 1 spray intranasal BID Qty: 30 RF: 3 lidocaine 5 % adhesive patch,medicated 1 patch transdermal QAM PRN (Reason: Pain) RF: 0 cranberry 500 mg capsule 1,000 mg PO QAM RF: 0 acetaminophen 500 mg capsule 1,000 mg PO TID RF: 0 donepezil 23 mg tablet 23 mg PO HS RF: 0 Eliquis 2.5 mg tablet 2.5 mg PO BID Qty: 60 RF: 0 amoxicillin-pot clavulanate [Augmentin] 875-125 mg tablet 1 tab PO BID RF: 0 metoprolol succinate 25 mg tablet extended release 24 hr 25 mg PO DAILY RF: 0 Referrals Referrals: Sally Schaeffer CRNP [Primary Care Provider] -
[2021-04-18] MEDS ORDERED: MoRPHine SULFATE 4 MG/ML 1 ML CARP\\VIAL IV PRN (23:35)
[2021-04-18] MEDS ORDERED: cefOXitin 2,000 MG/60 ML BAG IV STA (23:40)
--- NOTE | 2021-04-19 00:02 | CT Scan Report ---
ABDOMEN AND PELVIS CT WITHOUT CONTRAST CT DOSE: 624.93 mGy.cm HISTORY: Acute left lower quadrant abdominal pain llq pain TECHNIQUE: Multiaxial CT images of the abdomen and pelvis were performed without contrast. A dose lo wering technique was utilized adhering to the principles of ALARA. COMPARISON STUDY: MRCP 04/16/2021, CT abdomen and pelvis 04/13/2021 FINDINGS: Cardiomegaly. Coronary artery calcifications. Mild bibasilar atelectasis/scarring. There is no pneuma tosis or pneumoperitoneum. Limited evaluation of the solid abdominal organs without the use of IV con trast. The spleen, pancreas and adrenal glands and liver appear unremarkable. Cholecystectomy. There is a 5 mm radiodensity within the duodenum on image 178 series 3 which appears to be intraluminal rat her than within the distal common bile duct. No significant biliary ductal dilation identified. Unremarkable kidneys. No hydronephrosis. Prostamegaly. Urinary bladder wall thickening with partial d istention. Atherosclerosis of the aorta. No adenopathy. There is no bowel obstruction. Colonic diverticulosis. There is persistent yet decreased mild inflamm atory stranding involving the previously described sites within the mid descending and mid sigmoid co rui. No perforation or abscess. No CT evidence of acute appendicitis. No acute fracture. Degenerative changes of the spine, pelvis and hips. Chronic wedge deformity at T12. IMPRESSION: 1. Mild acute diverticulitis of the descending and sigmoid colon has slightly improved from the 021 exam. No evidence of perforation or abscess. 2. Cholecystectomy. There is a 5 mm radiodensity within the duodenum which is likely intraluminal. A calculus within the ampulla is considered less likely. Correlate with serum bilirubin. 3. Prostamegaly 4. Additional findings as above. ACT 112: Negative or not required by law. The above report was generated using voice recognition software. It may contain grammatical, syntax o r spelling errors. Electronically signed by: Brayden Gonsalez M.D. 04/19/2021 12:01 AM
[2021-04-19 01:57] LABS: Appearance Urine Clear (Clear); Bilirubin Urine Negative (Negative); Blood Urine Negative (Negative); Color Urine Yellow; Glucose Urine UA Negative (Negative); Ketones Urine Trace (Negative); Leukocyte Esterase Urine Negative (Negative); Nitrite Urine Negative (Negative); Protein Urine Negative (Negative); Specific Gravity Urine 1.016 (1.000-1.030); Urobilinogen Urine Negative (Negative)
--- NOTE | 2021-04-19 02:05 | History & Physical Report ---
Date of Service April 19, 2021 Assessment & Plan (1) Diverticulitis: 89 YOM with past medical history of: Aflutter with cardioversion in 2020 (on BB and Eliquis), HTN, CKD III, chronic cervical pain treated with radiofrequency ablations, GERD, BPH, ELIANA, OA, Diverticulitis, Chronic Diarrhea, choledocholithiasis, cholecystectomy, DONNA. #Diverticulitis See HPI for clinical history, physical exam findings correlate with CT findings of sigmoid diverticulitis. Given patient's repeated presentation, and recent discharge from the hospital will admit for evaluation and management of his symptoms. During his most recent admission he was placed on Zosyn and discharged on Augmentin, to change antibiotic classes will start Cipro Flagyl IV. Benign physical exam, no signs or symptoms of perforation. Per review of prior notes, GI had suggested general surgery consultation. -LR at 100x2 bags -Cipro Flagyl IV -GI consulted appreciate recommendations -General surgery consulted appreciate recommendations -Zofran every 4 hours as needed -N.p.o. -Holding Eliquis in the event surgery is needed -Tylenol 1 g every 8 hours and morphine 2/4 mg every 4 hours as needed for pain -Supportive care #Dark stools Per review of records patient is reporting a history of dark stools during his recent admissions. Today he also reports history of dark stools. There have been no witnessed stools. Fecal occult blood pending, hemoglobin has been stable. -Follow-up FOBT -Holding anticoagulation as above -Follow-up a.m. CBC #Acute kidney injury on chronic kidney disease stage III Baseline creatinine appears to be 1.2-1.3, 1.56 on discharge 04/17, 2.02 on presentation. -Trend daily BMP -Avoid nephrotoxins -Holding Bumex and lisinopril -Consider medication titration -Received 1 L of fluid in the ED, currently receiving LR at 100x2 bags #Hypertension Continued 25 mg p.o. 3 times daily hydralazine and metoprolol 25 mg p.o. daily -Holding Bumex and lisinopril as above #Dementia Alert and oriented x4 however questionable reliability as a historian with associated depression. -Continue donepezil -Continue citalopram #GERD -Continue famotidine 20 mg p.o. twice daily #History of atrial flutter on chronic anticoagulation Currently in normal sinus rhythm with controlled ventricular rate on chronic anticoagulation with Eliquis. -Holding Eliquis as above, resume when able FENa: N.p.o. pending consultation by general surgery and GI Code Status: DNR/DNI DVT PPX: SCDs PT/OT: Ordered Case Management: Appreciate help with discharge planning Dispo: MedSurg with telemetry Nino Sahh MD PGY 3, FCM This chart was completed utilizing [employer] voice recognition software. Grammatical errors, random word insertions, pronoun errors, and in complete sentences are an occasional consequence of the system. Any questions or concerns about the content, text, or information contained within the body of this dictation should be addressed directly to the physician for clarification. (2) Abdominal pain, acute, left lower quadrant: (3) VIMAL (acute kidney injury): (4) Depression: (5) Neck pain with history of cervical spinal surgery: (6) Dementia: (7) Atrial flutter: (8) GERD (gastroesophageal reflux disease): (9) BPH (benign prostatic hyperplasia): (10) CKD (chronic kidney disease) stage 3, GFR 30-59 ml/min: (11) Memory impairment: (12) Mild obstructive sleep apnea: History of Present Illness 89 YOM with past medical history of Aflutter with cardioversion in 2020 (on BB and Eliquis), HTN, CKD III, chronic cervical pain treated with radiofrequency ablations, GERD, BPH, ELIANA, OA, Diverticulitis, Chronic Diarrhea, choledocholithiasis, cholecystectomy, DONNA presents for evaluation of left lower quadrant pain diagnosed with diverticulitis. This is the patient's third presentation to the emergency department for the same complaints. Patient was evaluated on 11 April 2021, again on April 14 when he was hospitalized until April 17. Initially upon discharge he did well, however progressively his left lower quadrant pain continued to become worse. He reports he has been having regular bowel movements. Following a low fiber low-fat diet as he was instructed, and taking all medications. He states his pain at baseline is a six or an 8 out of 10 with exacerbation up to a 10 out of 10. He denies any subjective fever, chills vomiting diarrhea chest pressure chest pain shortness of breath or focal neurological symptoms, endorsing intermittent nausea and left lower quadrant pain as described above. Previously he was treated with Zosyn while hospitalized and also noted to have a UTI demonstrating E. coli resistant to ampicillin sulbactam, Cipro, levo, TMP-SMX. In the emergency department routine labs were obtained CBC was unremarkable, Chem-7 demonstrated a creatinine of 2.02 increased from his most recent creatinine of 1.56, glucose of 111, LFTs within normal limits, UA pending, lactate pending. CTAP demonstrated mild acute diverticulitis of the descending and sigmoid colon slight improvement from 04/13 no evidence of perforation or abscess, history of cholecystectomy with 5 mm radiodensity within the duodenum which is likely intraluminal. Patient received IV cefoxitin, and a liter of fluid. Hospital service was consulted for admission. Primary Care Provider: DESI Mir Allergies Allergy/AdvReac Type Severity Reaction Status Date / Time vancomycin Allergy Intermediate LOWER Verified 04/18/21 13:48 EXTREMITY SWELLING, FEVER Sulfa (Sulfonamide Allergy Mild Rash Verified 04/18/21 13:48 Antibiotics) gabapentin AdvReac Mild drowsy,conf Verified 04/18/21 13:48 used adhesive AdvReac peña tears Verified 04/19/21 00:06 Home Medications Medication Instructions Recorded Confirmed Type cranberry 500 mg capsule 1,000 mg PO QAM 05/31/19 04/18/21 History citalopram 40 mg tablet 40 mg PO QAM #90 tab 08/26/20 04/18/21 Rx acetaminophen 500 mg capsule 1,000 mg PO TID 11/27/20 04/18/21 History azelastine 205.5 mcg (0.15 %) 1 spray INTRANASAL BID #30 ml 01/07/21 04/18/21 Rx nasal spray lidocaine 5 % topical patch 1 patch TRANSDERMAL QAM PRN ea 01/21/21 04/18/21 History lisinopril 10 mg tablet 10 mg PO DAILY #30 tab 03/03/21 04/18/21 Rx bumetanide 1 mg tablet 1 mg PO DAILY 04/08/21 04/18/21 History hydralazine 25 mg tablet 25 mg PO TID 04/08/21 04/18/21 History donepezil 23 mg PO HS 04/12/21 04/18/21 History amoxicillin-pot clavulanate 1 tab PO BID 04/17/21 04/18/21 History [Augmentin] apixaban [Eliquis] 2.5 mg PO BID #60 tab 04/17/21 04/18/21 Rx famotidine 20 mg tablet 20 mg PO BID #60 tab 04/18/21 04/18/21 Rx metoprolol succinate 25 mg PO DAILY 04/18/21 04/18/21 History 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 Myofascial pain Nocturnal hypoxemia Occipital neuralgia of left side Osteoarthritis Pancreatitis Surgical History H/O colonoscopy (06/2013) History of cystoscopy History of difficult intubation CHOLECYSTECTOMY= 01/11/14= GLIDESCOPE #4 (2/2 DECREASED CERVICAL ROM) BUT HAD GRADE VIEW 1, MAC 4 WITH ANKLE SURGERY 11/09/[address] [facility] RECORDS History of esophagogastroduodenoscopy (EGD) (09/2019) History of shoulder surgery Rt shoulder - 09/22/18 [facility] History of total knee replacement B/L WITH REVISIONS; LEFT TKA REVISION= 05/13/17= SAB X 2 ATTEMPTS + PNB AT [facility] Hx of cervical spine surgery ROM LIMITED FROM SIDE TO SIDE Hx of total ankle replacement RIGHT S/P cholecystectomy Squamous cell carcinoma of back resolved Family History Son Family history of diabetes mellitus Other No family history of adverse response to anesthesia No pertinent family history Denies family history of Ovarian cancer Prostate cancer Myocardial infarction Breast cancer Colorectal cancer Social History Smoking Status: Never smoker Second Hand Exposure: No; Do You Dip or Chew Tobacco: No; Hx Alcohol Use: No Hx Substance Use: No Preferred Language: Dominican Communication Ability: Effective Visual Impairment: No Limitations Threshing Operator Required: No Beliefs That Will Affect Care: None marital status: Current Living Situation: Spouse Current Living Situation Comment: lives with , family helps current occupational status: 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 Other Information That Helps Us Care for You: No Feels Safe at Home: Yes Safety Concerns: Feels Safe At This Time Childhood Exposure to Second-Hand Smoke: No caffeine: Yes Dental Care, Regularly: Yes Physical Activity Frequency: Daily Seatbelt Use: always Sunscreen Use: Yes (sometimes) Assistive Devices: None Physical Exam Physical Exam: General: Lying in bed in no acute distress HEENT: Normocephalic atraumatic Neck: Normal to visual inspection, trachea midline Cardiac: Regular rate and rhythm I did not appreciate significant murmurs rubs or gallops, normal S1, normal S2, negative pedal edema Respiratory: Clear to auscultation bilaterally with symmetrical chest expansion did not appreciate a significant wheezes, rales, rhonchi, no increased work of breathing GI: Soft, tender to palpation, nondistended, no rebound, no guarding, bowel sounds present MSK: Moves all extremities Neuro: Alert and oriented x4 although reliability as a historian was questionable Psych: Calm and cooperative with the interview Results & Data Results & Data ([facility]) Vital Signs (Past 12 Hours) Vital Signs Temp Pulse Resp BP Pulse Ox 04/19/21 00:34 76 20 110/52 L 93 04/19/21 00:00 75 14 101/43 L 92 04/18/21 23:31 72 24 130/57 L 92 04/18/21 22:30 72 20 126/57 L 04/18/21 22:00 73 17 127/64 04/18/21 21:30 71 18 138/68 04/18/21 21:17 71 24 136/61 04/18/21 20:32 36.3 C L 84 18 114/72 94 Laboratory Results 04/19/21 04/18/21 04/18/21 Range/Units 01:30 21:15 21:15 WBC 4.39 L (4.8-10.8) K/uL RBC 4.23 L (4.7-6.1) M/uL Hgb 13.6 L (14.0-18.0) g/dL Hct 40.0 L (42-52) % MCV 94.6 (80-100) fL MCH 32.2 (25-34) pg MCHC 34.0 (32-36) g/dL RDW Std Deviation 45.4 (36.4-46.3) fL RDW Coeff of Reilly 13.2 (11.5-14.5) % Plt Count 223 (130-400) K/uL MPV 9.1 (7.4-10.4) fL Immature Gran % (Auto) 0.2 % Neut % (Auto) 63.9 % Lymph % (Auto) 22.8 % Reynolds % (Auto) 11.2 % Eos % (Auto) 1.4 % Baso % (Auto) 0.5 % Neut # (Auto) 2.81 (1.4-6.5) K/uL Lymph # (Auto) 1.00 L (1.2-3.4) K/uL Reynolds # (Auto) 0.49 (0.11-0.59) K/uL Eos # (Auto) 0.06 (0-0.5) K/uL Baso # (Auto) 0.02 (0-0.2) K/uL Immature Gran # (Auto) 0.01 (0.00-0.02) K/uL Sodium 136 (136-145) mmol/L Potassium 3.8 (3.5-5.1) mmol/L Chloride 100 (98-107) mmol/L Carbon Dioxide 28 (21-32) mmol/L Anion Gap 8.0 (3-11) BUN 24 H (7-18) mg/dl Creatinine 2.02 H D (0.6-1.4) mg/dl Est Cr Clr Drug Dosing 26.1 ml/min Est GFR ( Amer) 33.1 ml/min Est GFR (Non-Af Amer) 28.6 ml/min BUN/Creatinine Ratio 12.0 (10-20) Glucose 111 H (70-99) mg/dl Lactate Pending Calcium 9.1 (8.5-10.1) mg/dl Total Bilirubin 0.4 (0.2-1) mg/dl AST 19 (15-37) U/L ALT 27 (12-78) U/L Alkaline Phosphatase 72 (45-117) U/L Total Protein 6.7 (6.4-8.2) gm/dl Albumin 3.4 (3.4-5.0) gm/dl Globulin 3.3 (2.5-4.0) gm/dl Albumin/Globulin Ratio 1.0 (0.9-2) Lipase 246 (73-393) U/L Medications Administered Current Inpatient Medications Fentanyl Citrate (Fentanyl Citrate 100 Mcg/2 Ml Vial) 50 mcg IV Q15M PRN PRN Reason: Pain Stop: 05/02/21 21:27 Last Admin: 04/18/21 21:54 Dose: 50 mcg Documented by: Morphine Sulfate (Morphine Sulfate 4 Mg/Ml 1 Ml Carp\\Vial) 4 mg IV Q30M PRN PRN Reason: Pain Stop: 05/02/21 23:34 Last Admin: 04/18/21 23:39 Dose: 4 mg Documented by: Code Status & VTE Plan VTE Prophylaxis Plan VTE Prophylaxis will be ordered: Yes Supervising Physician Co-Signing Physician Notes Patient seen and examined, chart reviewed, case discussed with Dr. Shah and I agree with his assessment and plan as above. In brief, patient is an 89yo male recently treated inpatient for acute diverticulitis on outpatient Augmentin presenting with persistent abdominal pains Question of retained gallstones during prior hospitalization On exam he is afebrile, HD stable, NAD, non-toxic in appearance Skin - intact, no rashes HEENT - NC/AT, PERRL, MMM, neck supple Heart - +S1/S2, regular, soft 2/6 EDU across precordium Lungs - CTA Abd- +BS, soft, mildly tender in LLQ/LUQ with deep palpation, no rebound/guarding/peritoneal signs Ext - No clubbing/cyanosis or edema Labs and images reviewed Assessment/Plan- uncertain exactly why symptoms persist, pain seems to be most in LUQ rather than LLQ - ?retained stone -Cipro/Flagyl -GI consultation -Surgery consultation -Remainder of plan as above Resident Activity Tracking Resident Involvement: Resident Care Provided Care Provided: Adult Hospital Medicine (1) BPH (benign prostatic hyperplasia) Lower urinary tract symptom presence: symptoms absent Qualified Code(s): N40.0 - Benign prostatic hyperplasia without lower urinary tract symptoms (2) Atrial flutter Atrial flutter type: typical Qualified Code(s): I48.3 - Typical atrial flutter (3) Dementia Dementia behavioral disturbance: without behavioral disturbance Dementia type: unspecified type Qualified Code(s): F03.90 - Unspecified dementia without behavioral disturbance (4) GERD (gastroesophageal reflux disease) Esophagitis presence: esophagitis presence not specified Qualified Code(s): K21.9 - Gastro-esophageal reflux disease without esophagitis
[2021-04-19] MEDS ORDERED: ACETAMINOPHEN 500 MG TAB PO PRN (02:33)
[2021-04-19] MEDS ORDERED: ONDANSETRON INJ 2 MG/ML 2 ML VIAL IV PRN (02:33)
[2021-04-19] MEDS ORDERED: MoRPHine SULFATE 4 MG/ML 1 ML CARP\\VIAL IV PRN (02:33)
[2021-04-19] MEDS ORDERED: MoRPHine SULFATE 2 MG/ML CARP IV PRN (02:33)
[2021-04-19] MEDS ORDERED: LIDOCAINE 5% 1 PATCH TD PRN (02:33)
[2021-04-19] MEDS: LACTATED RINGER'S 1,000 ML IV SCH ×2 (02:56→12:46)
[2021-04-19] MEDS ORDERED: metroNIDAZOLE 500 MG/100 ML BAG IV SCH (04:00)
[2021-04-19 07:37] LABS: Basophils # (auto) 0.01 K/uL (0-0.2); Basophils % (auto) 0.3 %; Eosinophils # (auto) 0.05 K/uL (0-0.5); Eosinophils % (auto) 1.4 %; Hematocrit (blood only) 37.2 % (42-52); Hemoglobin 12.2 g/dL (14.0-18.0); Immature Granulocytes # (auto) 0.01 K/uL (0.00-0.02); Immature Granulocytes % (auto) 0.3 %; Lymphocytes # (auto) 1.05 K/uL (1.2-3.4); Lymphocytes % (auto) 29.2 %; Mean Corpuscular Hemoglobin 31.6 pg (25-34); Mean Corpuscular Hgb Conc 32.8 g/dL (32-36); Mean Corpuscular Volume 96.4 fL (80-100); Monocytes # (auto) 0.28 K/uL (0.11-0.59); Monocytes % (auto) 7.8 %; Platelet Count 180 K/uL (130-400); RDW Coefficient of Variation 13.3 % (11.5-14.5); RDW Standard Deviation 45.9 fL (36.4-46.3); Red Blood Count 3.86 M/uL (4.7-6.1)
--- NOTE | 2021-04-19 07:38 | Surgery Consultation ---
Date of Consultation April 19, 2021 Assessment & Plan (1) Diverticulitis: This is an 89y M with a PMH of CKD, aflutter on eliquis, GERD, HTN who presented to the [facility] ED on 04/18/21 with complaints of abdominal pain and overall not feeling great in general. In the ER patient underwent a CT a/p that revealed mild acute diverticulitis of the descending and sigmoid colon has slightly improved from the 04/13/2021 exam, no evidence of perforation or abscess. Today WBC 3.6, patient is afebrile with stable vital signs. His abdomen is soft and non tender to palpation. He reports feeling vastly better than yesterday. He is sitting up in bed tolerating a regular breakfast. As patient is improved we agree with current measures. Patient can be discharged when ready on a course of po cipro/flagyl. He should follow up with GI as previously planned and undergo Colonoscopy in 6-8 weeks and ongoing workup for ?choledocholithiasis.No plans for surgical intervention at this time. As patient is doing well we will sign off, please call with any questions/concerns. History of Present Illness Attending Physician: Harjit Ruiz, DO History of Present Illness This is an 89y M with a PMH of CKD, aflutter on eliquis, GERD, HTN who presented to the [facility] ED on 04/18/21 with complaints of abdominal pain and overall not feeling great in general. Of note the patient has been seen in the ER a couple times of recent and was diagnosed with diverticulitis. He also had an admission from 04/15-04/17 with diverticulitis, diarrhea, and concern for choledocholithiasis. GI saw patient and recommending close outpatient follow up for possible scopes and ?ERCP. He has been on oral augmentin for the diverticulitis. Patient says since returning home his belly pain returned and he had headaches and just did not feel well. He presented to the ER and underwent a CT a/p that revealed mild acute diverticulitis of the descending and sigmoid colon has slightly improved from the 04/13/2021 exam, no evidence of perforation or abscess. He states he has had diverticulitis before. He denies many Bm's of recent. Patient says he is feeling much better today, is tolerating a diet, denies nausea/vomiting. Allergies Allergy/AdvReac Type Severity Reaction Status Date / Time vancomycin Allergy Intermediate LOWER Verified 04/18/21 13:48 EXTREMITY SWELLING, FEVER Sulfa (Sulfonamide Allergy Mild Rash Verified 04/18/21 13:48 Antibiotics) gabapentin AdvReac Mild drowsy,conf Verified 04/18/21 13:48 used adhesive AdvReac peña tears Verified 04/19/21 00:06 Home Medications Medication Instructions Recorded Confirmed Type cranberry 500 mg capsule 1,000 mg PO QAM 05/31/19 04/18/21 History citalopram 40 mg tablet 40 mg PO QAM #90 tab 08/26/20 04/18/21 Rx acetaminophen 500 mg capsule 1,000 mg PO TID 11/27/20 04/18/21 History azelastine 205.5 mcg (0.15 %) 1 spray INTRANASAL BID #30 ml 01/07/21 04/18/21 Rx nasal spray lidocaine 5 % topical patch 1 patch TRANSDERMAL QAM PRN ea 01/21/21 04/18/21 History lisinopril 10 mg tablet 10 mg PO DAILY #30 tab 03/03/21 04/18/21 Rx bumetanide 1 mg tablet 1 mg PO DAILY 04/08/21 04/18/21 History hydralazine 25 mg tablet 25 mg PO TID 04/08/21 04/18/21 History donepezil 23 mg PO HS 04/12/21 04/18/21 History amoxicillin-pot clavulanate 1 tab PO BID 04/17/21 04/18/21 History [Augmentin] apixaban [Eliquis] 2.5 mg PO BID #60 tab 04/17/21 04/18/21 Rx famotidine 20 mg tablet 20 mg PO BID #60 tab 04/18/21 04/18/21 Rx metoprolol succinate 25 mg PO DAILY 04/18/21 04/18/21 History Patient History Medical History Anxiety Atrial flutter DX OCT 2020> ELIQUIS/METOPROLOL 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 BPH (benign prostatic hyperplasia) Cervical facet joint syndrome Cervical radicular pain Cervical spinal stenosis Left C7 and 8 paresthesias Cervicogenic headache CKD (chronic kidney disease) stage 3, GFR 30-59 ml/min follows PCP Dyslipidemia GERD (gastroesophageal reflux disease) CONTROLLED Hearing difficulty History of kidney stones Hypertension Impaired fasting glucose Hgb A1C 6.8 on 04/11/20 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 Myofascial pain Nocturnal hypoxemia Occipital neuralgia of left side Osteoarthritis Pancreatitis Surgical History H/O colonoscopy (06/2013) History of cystoscopy History of difficult intubation CHOLECYSTECTOMY= 01/11/14= GLIDESCOPE #4 (2/2 DECREASED CERVICAL ROM) BUT HAD GRADE VIEW 1, MAC 4 WITH ANKLE SURGERY 11/09/14 PER [facility] RECORDS History of esophagogastroduodenoscopy (EGD) (09/2019) History of shoulder surgery Rt shoulder - 09/22/18 [facility] History of total knee replacement B/L WITH REVISIONS; LEFT TKA REVISION= 05/13/17= SAB X 2 ATTEMPTS + PNB AT [facility] Hx of cervical spine surgery ROM LIMITED FROM SIDE TO SIDE Hx of total ankle replacement RIGHT S/P cholecystectomy Squamous cell carcinoma of back resolved Family History Son Family history of diabetes mellitus Other No family history of adverse response to anesthesia No pertinent family history Denies family history of Ovarian cancer Prostate cancer Myocardial infarction Breast cancer Colorectal cancer Social History Smoking Status: Never smoker Second Hand Exposure: No; Do You Dip or Chew Tobacco: No; Hx Alcohol Use: No Hx Substance Use: No Preferred Language: Wolof Communication Ability: Effective Visual Impairment: No Limitations Accounting Advisory Services Manager Required: No Beliefs That Will Affect Care: None marital status: Current Living Situation: Spouse Current Living Situation Comment: lives with , family helps 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 occupational status: 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 Other Information That Helps Us Care for You: No Feels Safe at Home: Yes Safety Concerns: Feels Safe At This Time Childhood Exposure to Second-Hand Smoke: No caffeine: Yes Dental Care, Regularly: Yes Physical Activity Frequency: Daily Seatbelt Use: always Sunscreen Use: Yes (sometimes) Assistive Devices: None Review of Systems Constitutional: no fever and no chills Gastrointestinal: + abdominal pain (yesterday) and + constipation Neurologic: + headache(s) Physical Exam Physical Exam: awake/alert, sitting up in bed eating regular breakfast Constitutional: cooperative and comfortable; no acute distress Respiratory: normal respiratory effort Gastrointestinal (Abdomen): Inspection/Auscultation: abdomen not distended Percussion/Palpation: abdomen soft; abdomen nontender Results & Data ([facility]) Vital Signs (Past 12 Hours) Vital Signs Temp Pulse Pulse Resp BP BP Pulse Ox 04/19/21 07:24 36.3 C L 70 18 148/69 H 92 04/19/21 04:42 37.0 C 62 20 99/62 L 89 L 04/19/21 03:12 74 22 92 04/19/21 02:26 36.5 C 67 18 144/71 H 93 04/19/21 02:23 74 04/19/21 01:30 75 20 128/66 96 04/19/21 01:00 76 16 127/67 93 04/19/21 00:34 76 20 110/52 L 93 04/19/21 00:00 75 14 101/43 L 92 04/18/21 23:31 72 24 130/57 L 92 04/18/21 22:30 72 20 126/57 L 04/18/21 22:00 73 17 127/64 04/18/21 21:30 71 18 138/68 04/18/21 21:17 71 24 136/61 04/18/21 20:32 36.3 C L 84 18 114/[address] WITHOUT CONTRAST CT DOSE: 624.93 mGy.cm HISTORY: Acute left lower quadrant abdominal pain llq pain TECHNIQUE: Multiaxial CT images of the abdomen and pelvis were performed without contrast. A dose lowering technique was utilized adhering to the principles of ALARA. COMPARISON STUDY: MRCP 04/16/2021, CT abdomen and pelvis 04/13/2021 FINDINGS: Cardiomegaly. Coronary artery calcifications. Mild bibasilar atelectasis/scarring. There is no pneumatosis or pneumoperitoneum. Limited evaluation of the solid abdominal organs without the use of IV contrast. The spleen, pancreas and adrenal glands and liver appear unremarkable. Cholecystectomy. There is a 5 mm radiodensity within the duodenum on image 178 s eries 3 which appears to be intraluminal rather than within the distal common bile duct. No significant biliary ductal dilation identified. Unremarkable kidneys. No hydronephrosis. Prostamegaly. Urinary bladder wall thickening with partial distention. Atherosclerosis of the aorta. No adenopathy. There is no bowel obstruction. Colonic diverticulosis. There is persistent yet decreased mild inflammatory stranding involving the previously described sites within the mid descending and mid sigmoid colon. No perforation or abscess. No CT evidence of acute appendicitis. No acute fracture. Degenerative changes of the spine, pelvis and hips. Chronic wedge deformity at T12. IMPRESSION: 1. Mild acute diverticulitis of the descending and sigmoid colon has slightly improved from the 04/13/2021 exam. No evidence of perforation or abscess. 2. Cholecystectomy. There is a 5 mm radiodensity within the duodenum which is likely intraluminal. A calculus within the ampulla is considered less likely. Correlate with serum bilirubin. 3. Prostamegaly 4. Additional findings as above. ACT 112: Negative or not required by law. The above report was generated using voice recognition software. It may contain grammatical, syntax or spelling errors. Electronically signed by: Brayden Gonsalez M.D. 04/19/2021 12:01 AM PG Care Time/CCT Total # of Minutes Spent Total Time Spent with Patient: Total time spent is greater than 50% in coordination of care (as documented) at patient's floor/unit and/or counseling patient: Coding Level of Care Code 57437 Initial Inpt Care Lvl 1 Diagnoses Diverticulitis K57.92
[2021-04-19 08:13] LABS: Albumin Level 2.9 gm/dl (3.4-5.0); BUN Creatinine Ratio 11.1 (10-20); Calcium 8.6 mg/dl (8.5-10.1); Creatinine Clr Calc Pharmacy 31.8 ml/min; Est GFR (Non-African American) 36.3 ml/min; Potassium 3.8 mmol/L (3.5-5.1)
[2021-04-19 08:16] LABS: Bilirubin,Total 0.6 mg/dl (0.2-1); Total Protein 5.9 gm/dl (6.4-8.2)
[2021-04-19] MEDS: CITALOPRAM 40 MG TAB PO SCH (08:28)
[2021-04-19] MEDS: METOPROLOL SUCC 25MG EXT REL TAB PO SCH (08:28)
[2021-04-19] MEDS: *AZELASTINE*ORDER AWAITING ACTION SCH ×3 (08:29→23:08)
[2021-04-19] MEDS: hydrALAZINE HCL 25 MG TAB PO SCH ×3 (08:29→20:08)
[2021-04-19] MEDS ORDERED: CIPROFLOXACIN / D5W 200 MG/100 ML BAG IV SCH (09:00)
[2021-04-19] MEDS ORDERED: FAMOTIDINE 20 MG TAB PO SCH (09:00)
[2021-04-19] MEDS ORDERED: POLYETHYLENE (MIRALAX) 17 GM PACK PO SCH (09:00)
[2021-04-19] MEDS ORDERED: PIPERACILLIN/TAZOBACTAM 4.5 GM in DEXTROSE 5% 100 ML IV ONE (09:35)
[2021-04-19] MEDS ORDERED: PIPERACILL/TAZOBAC CONSULT ACTIVE PRN (09:35)
--- NOTE | 2021-04-19 10:54 | Gastrointestinal Consultation ---
Date of Consultation April 19, 2021 Assessment & Plan (1) Diverticulitis: (2) RUQ abdominal tenderness: (3) Choledocholithiasis: diverticulitis appears to be improving, continue cipro and flagyl for a total of 7-10 days of antibiotics. He does have persistent choledocholithiasis however. Recs: --NPO post midnight --EUS/ERCP tomorrow morning --continue antibiotics for diverticulitis --supportive care --rest as per primary team Thank you for allowing me to participate in the care of this patient History of Present Illness Attending Physician: Harjit Ruiz, DO 89 yo male with recent admission for diverticulitis here again with abdominal pains. He was discharged few days ago and upon seeing his PCP in the office as an outpatient he was still having significant abdominal pains. Was discharged on augmentin at the time. He presented back to the ER and CT showed mild diverticulitis that is slightly improved. However there is question of an ampullary stone and his MRCP few days ago did show choledocholithiasis, although he has had normal LFTs both this admission and last admission. Currently he feels well, notes some mild pains in his RUQ. Otherwise no significant issues but on a clear liquid diet. labs reviewed. Allergies Allergy/AdvReac Type Severity Reaction Status Date / Time vancomycin Allergy Intermediate LOWER Verified 04/18/21 13:48 EXTREMITY SWELLING, FEVER Sulfa (Sulfonamide Allergy Mild Rash Verified 04/18/21 13:48 Antibiotics) gabapentin AdvReac Mild drowsy,conf Verified 04/18/21 13:48 used adhesive AdvReac peña tears Verified 04/19/21 00:06 Home Medications Medication Instructions Recorded Confirmed Type cranberry 500 mg capsule 1,000 mg PO QAM 05/31/19 04/18/21 History citalopram 40 mg tablet 40 mg PO QAM #90 tab 08/26/20 04/18/21 Rx acetaminophen 500 mg capsule 1,000 mg PO TID 11/27/20 04/18/21 History azelastine 205.5 mcg (0.15 %) 1 spray INTRANASAL BID #30 ml 01/07/21 04/18/21 Rx nasal spray lidocaine 5 % topical patch 1 patch TRANSDERMAL QAM PRN ea 01/21/21 04/18/21 History lisinopril 10 mg tablet 10 mg PO DAILY #30 tab 03/03/21 04/18/21 Rx bumetanide 1 mg tablet 1 mg PO DAILY 04/08/21 04/18/21 History hydralazine 25 mg tablet 25 mg PO TID 04/08/21 04/18/21 History donepezil 23 mg PO HS 04/12/21 04/18/21 History amoxicillin-pot clavulanate 1 tab PO BID 04/17/21 04/18/21 History [Augmentin] apixaban [Eliquis] 2.5 mg PO BID #60 tab 04/17/21 04/18/21 Rx famotidine 20 mg tablet 20 mg PO BID #60 tab 04/18/21 04/18/21 Rx metoprolol succinate 25 mg PO DAILY 04/18/21 04/18/21 History Patient History Medical History Anxiety Atrial flutter DX OCT 2020> ELIQUIS/METOPROLOL 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 BPH (benign prostatic hyperplasia) Cervical facet joint syndrome Cervical radicular pain Cervical spinal stenosis Left C7 and 8 paresthesias Cervicogenic headache CKD (chronic kidney disease) stage 3, GFR 30-59 ml/min follows PCP Dyslipidemia GERD (gastroesophageal reflux disease) CONTROLLED Hearing difficulty History of kidney stones Hypertension Impaired fasting glucose Hgb A1C 6.8 on 04/11/20 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 Myofascial pain Nocturnal hypoxemia Occipital neuralgia of left side Osteoarthritis Pancreatitis Surgical History H/O colonoscopy (06/2013) History of cystoscopy History of difficult intubation CHOLECYSTECTOMY= 01/11/14= GLIDESCOPE #4 (2/2 DECREASED CERVICAL ROM) BUT HAD GRADE VIEW 1, MAC 4 WITH ANKLE SURGERY 11/09/14 PER [facility] RECORDS History of esophagogastroduodenoscopy (EGD) (09/2019) History of shoulder surgery Rt shoulder - 09/22/18 [facility] History of total knee replacement B/L WITH REVISIONS; LEFT TKA REVISION= 05/13/17= SAB X 2 ATTEMPTS + PNB AT [facility] Hx of cervical spine surgery ROM LIMITED FROM SIDE TO SIDE Hx of total ankle replacement RIGHT S/P cholecystectomy Squamous cell carcinoma of back resolved Family History Son Family history of diabetes mellitus Other No family history of adverse response to anesthesia No pertinent family history Denies family history of Ovarian cancer Prostate cancer Myocardial infarction Breast cancer Colorectal cancer Social History Smoking Status: Never smoker Second Hand Exposure: No; Do You Dip or Chew Tobacco: No; Hx Alcohol Use: No Hx Substance Use: No Preferred Language: R[place] Communication Ability: Effective Visual Impairment: No Limitations Rehabilitation Counselor Required: No Beliefs That Will Affect Care: None marital status: Current Living Situation: Spouse Current Living Situation Comment: lives with , family helps current occupational status: 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 Other Information That Helps Us Care for You: No Feels Safe at Home: Yes Safety Concerns: Feels Safe At This Time Childhood Exposure to Second-Hand Smoke: No caffeine: Yes Dental Care, Regularly: Yes Physical Activity Frequency: Daily Seatbelt Use: always Sunscreen Use: Yes (sometimes) Assistive Devices: None Review of Systems Constitutional: no fever, no chills and no weight loss Eyes: as per Subjective / HPI Ear, Nose, Mouth, Throat: as per Subjective / HPI Respiratory: no dyspnea and no dyspnea on exertion Cardiovascular: no chest pain and no palpitations Gastrointestinal: as per Subjective / HPI Musculoskeletal: no joint pain and no swelling Integumentary: no rash and no lesions Neurologic: no numbness and no paresthesia Psychiatric: no depression and no anxiety Endocrine: no fatigue Hematologic / Lymphatic: no easy bleeding and no easy bruising Physical Exam Constitutional: WD/WN, vitals as above Eyes: EOM intact bilaterally Neck: normal visual inspection Respiratory: normal respiratory effort, lungs clear to auscultation Cardiovascular: RRR, no murmur, no edema Gastrointestinal (Abdomen): Inspection/Auscultation: abdomen normal to inspe ction; abdomen not distended Percussion/Palpation: + abdomen tender (mild RUQ) and abdomen soft; no hepatosplenomegaly Musculoskeletal: Extremities: no cyanosis Gait: normal gait Skin: no rashes, warm and dry Neurologic: moves all extremities Psychiatric: A+Ox3, euthymic affect Results & Data ([facility]) Vital Signs (Past 12 Hours) Vital Signs Temp Pulse Pulse Resp BP BP Pulse Ox 04/19/21 07:43 72 04/19/21 07:24 36.3 C L 70 18 148/69 H 92 04/19/21 04:42 37.0 C 62 20 99/62 L 89 L 04/19/21 03:12 74 22 92 04/19/21 02:26 36.5 C 67 18 144/71 H 93 04/19/21 02:23 74 04/19/21 01:30 75 20 128/66 96 04/19/21 01:00 76 16 127/67 93 04/19/21 00:34 76 20 110/52 L 93 04/19/21 00:00 75 14 101/43 L 92 04/18/21 23:31 72 24 130/57 L 92 PG Care Time/CCT Total # of Minutes Spent Total Time Spent with Patient: Total time spent is greater than 50% in coordination of care (as documented) at patient's floor/unit and/or counseling patient: Coding Level of Care Code 37324 Initial Inpt Care Lvl 3 Diagnoses Diverticulitis K57.92 RUQ abdominal tenderness R10.811 Choledocholithiasis K80.50
--- NOTE | 2021-04-19 13:36 | Hospitalist Progress Note ---
Date of Service April 19, 2021 Assessment & Plan (1) Choledocholithiasis: * I am suspicious that this is likely the cause of patient's chronic/yet intermittent left upper quadrant discomfort. * Prior to his previous hospitalization, he had a CT of the abdomen and pelvis showing a 4 mm stone in the common bile duct with an elevated lipase along with transaminitis. Lab values have since normalized and a follow-up CT scan showed no evidence of a common bile duct stone but an MRCP did confirm filling defects likely consistent with sludge. He was seen by GI during that last hospitalization and the plan was for an outpatient ERCP as patient's lab data was normal and he was tolerating oral intake. Unfortunately, patient's pain has been persistent which has limited his ability to tolerate oral intake leading to this hospitalization. * Will consult GI. Suspect patient needs an ERCP sooner rather than later. Appreciate recommendations. (2) RUQ abdominal tenderness: * Likely secondary to #1see above (3) Diverticulitis: * Patient does not have any clinical evidence to suggest acute diverticulitis at this time. During his last hospitalization, he did have radiographic evidence of diverticulitis with left lower quadrant pain. He is no longer having left lower quadrant pain or discomfort and he is tolerating oral intake. Patient's antibiotic therapy has already been transitioned to Cipro/Flagyl. We will continue this for now as his UTI has been successfully treated. Follow-up urinalysis is negative. Cipro/Flagyl is a lesser chance of causing antibiotic associated diarrhea as does the the Augmentin. * Although CT scan does show continued diverticulitis, it is improved compared to his prior film. There is no evidence of abscess or perforation. Again, patient is nontender in the left lower quadrant. I do not believe that this is contributing to his current pain * will continue clear liquids for now (4) VIMAL (acute kidney injury): * Likely secondary to lack of oral intake, diarrhea, and further exacerbated by his home meds (including lisinopril and Bumex). * Continue gentle IV hydration watching closely for S/S volume overload * Continue to hold Bumex/lisinopril with likely resumption over the next 48 hours * Hold all other nephrotoxic agents (5) Diarrhea: * There appears to be acute on chronic component here. * Patient with chronic diarrhea for which he has seen GI in the past. He has had multiple stool studies that have been negative for C. difficile, negative for O&P, Shigella/Salmonella/Campylobacter. Celiac panel has been ordered and is negative. was To have EGD as an outpatient * Regarding his baseline diarrheamay be multifactorial. Patient takes PPIs longstanding. In addition, he is s/p cholecystectomy which can increase loose stools. Likely made worse by Augmentin provided during his last hospitalization. * Will add probiotic and colestipol * Hold PPI and instead use H2 jose j for GI prophylaxis Chronic medical conditions include: 1. Atrial flutter on chronic anticoagulation therapywill hold Eliquis for potential ERCP 2. Dementiacontinue Aricept 3. CHFcurrently volume contracted. Hold Bumex for now 4. HTNcontinue metoprolol and hydralazine. Lisinopril on hold due to VIMAL 5. Depressioncontinue Celexa Plan of care will be discussed with Dr. Ruiz. Further orders as warranted. Admission and Anticipated Discharge Date Admission Date: April 19, 2021 Subjective Patient seen on daily rounds today. He was admitted d/t increasing LUQ pain. Admitted 04/14/21 through 04/17/21 for acute diverticulitis and UTI. He was treated with Zosyn responded favorably. LLQ and suprapubic pain resolved and he was tolerated oral intake. He was having persistent LUQ pain (that has been ongoing x 6 months). In review of old records- patient had an OP workup showing pancreatitis and CT evidence of a 4mm stone in the CBD (has does not have a GB). His lipase and LFT's remained WNL during his hospitalization. His CT done during that last hospitalization showed no evidence of a CBD stone. He has an MRCP showing no evidence of stone but filling defects (thought to be slidge). GI was involved and recommended ERCP as an OP. He was D/C'ed with Augmentin (based on urine culture- MDR E.Coli). Patient has been home for 24 hours and claims that his LUQ pain has gotten worse. Unable to tolerate oral intake. No N/V. Is having diarrhea (not new. Chronic- has been worked up by GI including stool studies and celiac panel). Diarrhea made worse by abx therapy on board. Upon return to the ED, WBC WNL. TB/LFT's and lipase remain WNL. Cr. was elevated at 2.02 (baseline around 1.3). Was hydrated overnight and his cr. has improved to 1.6. Overall, patient reports "I feel great". He is tolerated oral intake. Review of Systems Review of Systems: mild LUQ pain (but significantly improved) Denies fevers, chills, headache, nasal congestion, sore throat, cough, chest pain, shortness of breath, nausea, vomiting, GI/ symptomatology. Physical Exam Physical Exam: General: Resting comfortably in his hospital bed. A&O X3 NAD. Cardiac: RRR with 1/6 EDU Lungs: CTA without W/R/R Abdomen: Normoactive X4. Soft. Absolutely no tenderness in the left lower quadrant or suprapubic region. Mild left upper quadrant abdominal pain Extremities: No peripheral clubbing cyanosis or edema Results & Data Results & Data ([facility]) Vital Signs (Past 12 Hours) Vital Signs Temp Pulse Pulse Resp BP BP Pulse Ox 04/19/21 11:06 36.5 C 82 16 127/63 92 04/19/21 07:43 72 04/19/21 07:24 36.3 C L 70 18 148/69 H 92 04/19/21 04:42 37.0 C 62 20 99/62 L 89 L 04/19/21 03:12 74 22 92 04/19/21 02:26 36.5 C 67 18 144/71 H 93 04/19/21 02:23 74 04/19/21 01:30 75 20 128/66 96 Laboratory Results 04/19/21 07:10 04/19/21 07:10 BUN upon admission was 24. Creatinine upon admission was 2.02. Total bilirubin 0.4 AST 19 ALT 27 Lipase 246 Repeat urinalysis is not grossly infected. It is leukocyte esterase and nitrite negative Diagnostic Findings IMPRESSION: 1. Mild acute diverticulitis of the descending and sigmoid colon has slightly improved from the 04/13/2021 exam. No evidence of perforation or abscess. 2. Cholecystectomy. There is a 5 mm radiodensity within the duodenum which is likely intraluminal. A calculus within the ampulla is considered less likely. Correlate with serum bilirubin. 3. Prostamegaly 4. Additional findings as above. PG Care Time/CCT Total # of Minutes Spent Total Time Spent with Patient: Total time spent is greater than 50% in coordination of care (as documented) at patient's floor/unit and/or counseling patient: Coding Level of Care Code None Diagnoses Choledocholithiasis K80.50 RUQ abdominal tenderness R10.811 Diverticulitis K57.92 VIMAL (acute kidney injury) N17.9 Diarrhea R19.7 Diarrhea type: unspecified type (1) Diarrhea Diarrhea type: unspecified type Qualified Code(s): R19.7 - Diarrhea, unspecified
[2021-04-19] MEDS ORDERED: COLESTIPOL HCL 1 GM TAB PO PRN (13:51)
[2021-04-19] MEDS: metroNIDAZOLE 500 MG/100 ML BAG IV SCH ×2 (14:56→21:50)
[2021-04-19] MEDS ORDERED: PIPERACILLIN/TAZOBACTAM 3.375 GM in DEXTROSE 5% 100 ML IV SCH (16:00)
[2021-04-19] MEDS: SACCHAROMYCES BOULARDII 250 MG CAP PO SCH (20:08)
--- NOTE | 2021-04-20 00:54 | Billing Data ---
Date of Service April 19, 2021 Coding Level of Care Code 13363 OBS Care - Level 2
[2021-04-20] MEDS: metroNIDAZOLE 500 MG/100 ML BAG IV SCH ×2 (05:44→13:05)
--- NOTE | 2021-04-20 07:01 | Anesthesiology Consultation ---
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 History Surgery Operation Date: 04/20/21 09:00 Proposed Procedures p Endoscopic Retrograde Cholangiopancreato - Pablo Garibay MD Height/Weight Height: 5 ft 10 in Weight: 80.9 kg Allergies Allergy/AdvReac Type Severity Reaction Status Date / Time vancomycin Allergy Intermediate LOWER Verified 04/18/21 13:48 EXTREMITY SWELLING, FEVER Sulfa (Sulfonamide Allergy Mild Rash Verified 04/18/21 13:48 Antibiotics) gabapentin AdvReac Mild drowsy,conf Verified 04/18/21 13:48 used adhesive AdvReac peña tears Verified 04/19/21 00:06 Medications Home Medications Medication Instructions Recorded Confirmed Last Taken cranberry 500 mg capsule 1,000 mg PO QAM 05/31/19 04/18/21 04/18/21 09:00 citalopram 40 mg tablet 40 mg PO QAM #90 tab 08/26/20 04/18/21 04/18/21 09:00 acetaminophen 500 mg capsule 1,000 mg PO TID 11/27/20 04/18/21 04/18/21 17:00 azelastine 205.5 mcg (0.15 %) 1 spray INTRANASAL BID #30 ml 01/07/21 04/18/21 04/14/21 nasal spray lidocaine 5 % topical patch 1 patch TRANSDERMAL QAM PRN ea 01/21/21 04/18/21 Unknown lisinopril 10 mg tablet 10 mg PO DAILY #30 tab 03/03/21 04/18/21 04/18/21 09:00 bumetanide 1 mg tablet 1 mg PO DAILY 04/08/21 04/18/21 04/18/21 09:00 hydralazine 25 mg tablet 25 mg PO TID 04/08/21 04/18/21 04/18/21 17:00 donepezil 23 mg PO HS 04/12/21 04/18/21 04/13/21 amoxicillin-pot clavulanate 1 tab PO BID 04/17/21 04/18/21 04/18/21 17:00 [Augmentin] apixaban [Eliquis] 2.5 mg PO BID #60 tab 04/17/21 04/18/21 04/18/21 17:00 famotidine 20 mg tablet 20 mg PO BID #60 tab 04/18/21 04/18/21 04/18/21 16:00 metoprolol succinate 25 mg PO DAILY 04/18/21 04/18/21 Unknown Active Medications Generic Name Dose Route Start Last Admin Trade Name Alanna PRN Reason Stop Dose Admin Citalopram Hydrobromide 40 mg 04/19/21 09:00 04/19/21 08:28 Citalopram 40 Mg Tab PO 05/19/21 08:59 40 mg QAM DERECK Administration Famotidine 20 mg 04/19/21 09:00 04/19/21 08:28 Famotidine 20 Mg Tab PO 05/19/21 08:59 20 mg Q2D DERECK Administration Protocol Hydralazine HCl 25 mg 04/19/21 09:00 04/19/21 20:08 Hydralazine Hcl 25 Mg Tab PO 05/19/21 08:59 25 mg TID DERECK Administration Metronidazole 500 mg in 100 mls @ 100 mls/hr 04/19/21 14:00 04/20/21 06:50 Flagyl IV 04/29/21 13:59 Infused Q8H DERECK Infusion Metoprolol Succinate 25 mg 04/19/21 09:00 04/19/21 08:28 Metoprolol Succ 25mg Ext Rel Tab PO 05/19/21 08:59 25 mg DAILY DERECK Administration Miscellaneous 1 04/19/21 08:00 04/19/21 23:08 *Azelastine*Order Awaiting Action N/A 05/19/21 07:59 Not Given QS DERECK Miscellaneous 1 04/19/21 08:00 04/19/21 23:08 *Donepezil*Order Awaiting Action N/A 05/19/21 07:59 Not Given QS DERECK Miscellaneous 1 ea 04/19/21 21:00 04/19/21 20:07 Remove Lidoderm Patch N/A 05/19/21 20:59 Not Given DAILY@2100 DERECK Saccharomyces Boulardii 250 mg 04/19/21 21:00 04/19/21 20:08 Saccharomyces Boulardii 250 Mg Cap PO 05/19/21 20:59 250 mg BID DERECK Administration Past Medical History Medical History Anxiety Atrial flutter DX OCT 2020> ELIQUIS/METOPROLOL 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 BPH (benign prostatic hyperplasia) Cervical facet joint syndrome Cervical radicular pain Cervical spinal stenosis Left C7 and 8 paresthesias Cervicogenic headache CKD (chronic kidney disease) stage 3, GFR 30-59 ml/min follows PCP Dyslipidemia GERD (gastroesophageal reflux disease) CONTROLLED Hearing difficulty History of kidney stones Hypertension Impaired fasting glucose Hgb A1C 6.8 on 04/11/20 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 Myofascial pain Nocturnal hypoxemia Occipital neuralgia of left side Osteoarthritis Pancreatitis Past Family History Family History Son Family history of diabetes mellitus Other No family history of adverse response to anesthesia No pertinent family history Denies family history of Ovarian cancer Prostate cancer Myocardial infarction Breast cancer Colorectal cancer Past Surgical History Surgical History H/O colonoscopy (06/2013) History of cystoscopy History of difficult intubation CHOLECYSTECTOMY= 01/11/14= GLIDESCOPE #4 (2/2 DECREASED CERVICAL ROM) BUT HAD GRADE VIEW 1, MAC 4 WITH ANKLE SURGERY 11/09/14 PER [facility] RECORDS History of esophagogastroduodenoscopy (EGD) (09/2019) History of shoulder surgery Rt shoulder - 09/22/18 [facility] History of total knee replacement B/L WITH REVISIONS; LEFT TKA REVISION= 05/13/17= SAB X 2 ATTEMPTS + PNB AT [facility] Hx of cervical spine surgery ROM LIMITED FROM SIDE TO SIDE Hx of total ankle replacement RIGHT S/P cholecystectomy Squamous cell carcinoma of back resolved Social History Smoking Status: Never smoker Do You Dip or Chew Tobacco: No Hx Alcohol Use: No Hx Substance Use: No substance use type: does not use Physical Exam Vital Signs Last Vital Signs Temp 98.2 F 04/20/21 04:07 Pulse 63 04/20/21 04:07 Resp 18 04/20/21 04:07 BP 104/52 L 04/20/21 04:07 Pulse Ox 92 04/20/21 04:07 Testing Laboratory Results 04/19/21 07:10 04/19/21 07:10 Urine Color Yellow 04/19/21 01:50 Urine Appearance Clear (Clear) 04/19/21 01:50 Urine pH 5.0 (4.5-7.5) 04/19/21 01:50 Ur Specific Sod 1.016 (1.000-1.030) 04/19/21 01:50 Urine Protein Negative (Negative) 04/19/21 01:50 Urine Glucose (UA) Negative (Negative) 04/19/21 01:50 Urine Ketones Trace (Negative) H 04/19/21 01:50 Urine Nitrite Negative (Negative) 04/19/21 01:50 Ur Leukocyte Esterase Negative (Negative) 04/19/21 01:50 04/19/21 02:43 Aerobic Blood Culture - Preliminary Blood No growth in Aerobic bottle after 24 hours. Anaerobic Blood Culture - Preliminary No growth in Anaerobic bottle after 24 hours. 04/19/21 02:37 Aerobic Blood Culture - Preliminary Blood No growth in Aerobic bottle after 24 hours. Anaerobic Blood Culture - Preliminary No growth in Anaerobic bottle after 24 hours. Laboratory Tests 04/14/21 19:50 SARS-CoV-2 (PCR) NEGATIVE Electrocardiogram Date: 04/14/21 Normal sinus rhythm, rate 80 bpm Right bundle branch block Left anterior fascicular block Bifascicular block Minimal voltage criteria for LVH, may be normal variant Abnormal ECG When compared with ECG of 22-NOV-2020 07:55, No significant change was found Confirmed by Fritz Lawrence ([id number]) on 04/16/2021 5:53:17 AM Chest X-Ray Date: 04/18/21 Findings: + NAD Echocardiogram Date: 10/24/20 LV systolic function is normal The RV is mild to mod dilated LA is mildly dilated RA is mod dilated Mild to mod annular calcification Mod MR RV systolic pressure is elevated at 40-50mmHg
[2021-04-20 08:08] LABS: Eosinophils # (auto) 0.06 K/uL (0-0.5); Eosinophils % (auto) 2.1 %; Hematocrit (blood only) 34.5 % (42-52); Hemoglobin 11.4 g/dL (14.0-18.0); Immature Granulocytes # (auto) 0.01 K/uL (0.00-0.02); Immature Granulocytes % (auto) 0.3 %; Lymphocytes # (auto) 0.72 K/uL (1.2-3.4); Lymphocytes % (auto) 24.7 %; Mean Corpuscular Hemoglobin 31.8 pg (25-34); Mean Corpuscular Volume 96.4 fL (80-100); Mean Platelet Volume 8.7 fL (7.4-10.4); Monocytes # (auto) 0.33 K/uL (0.11-0.59); Monocytes % (auto) 11.3 %; Neutrophils # (auto) 1.79 K/uL (1.4-6.5); Neutrophils % (auto) 61.6 %; Platelet Count 163 K/uL (130-400); RDW Coefficient of Variation 12.9 % (11.5-14.5); RDW Standard Deviation 45.3 fL (36.4-46.3); Red Blood Count 3.58 M/uL (4.7-6.1); White Blood Count 2.91 K/uL (4.8-10.8)
[2021-04-20 08:43] LABS: Albumin Globulin Ratio 0.9 (0.9-2); Albumin Level 2.5 gm/dl (3.4-5.0); Bilirubin,Total 0.2 mg/dl (0.2-1); Calcium 8.5 mg/dl (8.5-10.1); Creatinine Clr Calc Pharmacy 40.9 ml/min; Est GFR (Non-African American) 49.2 ml/min; Globulin 2.8 gm/dl (2.5-4.0); Magnesium 1.9 mg/dl (1.8-2.4); Potassium 4.2 mmol/L (3.5-5.1); Total Protein 5.3 gm/dl (6.4-8.2)
[2021-04-20] MEDS ORDERED: INDOMETHACIN 50 MG SUPP PR ONE (08:59)
[2021-04-20] MEDS ORDERED: CIPROFLOXACIN / D5W 400 MG/200 ML BAG IV SCH ×2 (09:00→21:00)
[2021-04-20] MEDS ORDERED: ONDANSETRON INJ 2 MG/ML 2 ML VIAL IV PRN (09:30)
[2021-04-20] MEDS ORDERED: ATROPINE SULFATE 0.1 MG/ML 10ML SYR IV PRN (09:30)
[2021-04-20] MEDS ORDERED: fentaNYL citrate 100 MCG/2 ML VIAL IV PRN (09:30)
[2021-04-20] MEDS ORDERED: ePHEDrine sulfate 50 MG/ML AMP IV PRN (09:30)
--- NOTE | 2021-04-20 09:46 | History & Physical Bridge Note ---
Date of Service April 20, 2021 History & Physical Bridge Note I have examined the patient, reviewed the History & Physical and in the interval since the performance of the History & Physical I have noted the following changes of clinical significance: no changes noted ERCP today. Patient was explained in detail regarding risks, benefits, limitations and alternatives of the above endoscopic procedure. Risks of intravenous sedation used for procedure were also explained. Risks include, but not limited to perfo ration, bleeding, infection, respiratory distress, cardiac arrest and . Patient is also aware about the possibility of missed lesion. Patient's questions were answered. The patient verbalized understanding the information and agreed to undergo the procedure.
[2021-04-20] MEDS ORDERED: PROPOFOL IV EMULSION 10 MG/ML 20 ML VIAL IV ONE (09:52)
[2021-04-20] MEDS ORDERED: MIDAZOLAM HCL 1 MG/ML 2ML VIAL ONE (09:55)
[2021-04-20] MEDS ORDERED: KETAMINE 50 MG/5 ML SYRINGE ONE (09:56)
--- NOTE | 2021-04-20 10:40 | Operative Report ---
Post Operative Report Pre & Post Diagnosis Operation Date: 04/20/21 09:00 Pre-Op Diagnosis: Cholelithiasis Post-Op Diagnosis: Cholelithiasis I identified the patient and participated in the time-out.: Yes Procedure Operation Date: 04/20/21 09:00 Actual Procedures p Endoscopic Retrograde Cholangiopancreato - Pablo Garibay MD Surgeon Pablo Garibay MD Commercial Loan Administrator None Estimated Blood Loss 0 Findings See Below (CBD stones and sludge removed, stents placed) Specimens None Description of Procedure ERCP I attest to the content of the Intraoperative Record and any orders documented therein. Any exceptions are noted below.
[2021-04-20] MEDS ORDERED: GLUCAGON FOR INJ 1 MG VIAL ONE (10:50)
--- NOTE | 2021-04-20 10:57 | GI REPORT ---
Patient Name: Makenna Desir Procedure Date: 04/20/2021 9:11 AM Date of : 1930 Admit Type: Inpatient Age: 89 Gender: Male Attending MD: Pablo Garibay MD Procedure: ERCP Providers: Pablo Garibay MD Referring MD: Harjit Ruiz, Orlando Pina MD Indications: Abdominal pain of suspected biliary origin, Abnormal MRCP, Evaluation and possible treatment of bile duct stone(s) Medicines: Propofol per Anesthesia Complications: No immediate complications. Estimated Blood Loss: Estimated blood loss: none. Procedure: Pre-Anesthesia Assessment: - Prior to the procedure, a History and Physical was performed, and patient medications, allergies and sensitivities were reviewed. The patient's tolerance of previous anesthesia was reviewed. - The risks and benefits of the procedure and the sedation options and risks were discussed with the patient. All questions were answered and informed consent was obtained. - Patient identification and proposed procedure were verified prior to the procedure by the physician and the nurse. The procedure was verified in the procedure room. - Pre-procedure physical examination revealed no contraindications to sedation. After obtaining informed consent, the scope was passed under direct vision. Throughout the procedure, the patient's blood pressure, pulse, and oxygen saturations were monitored continuously. The Scope was introduced through the mouth, and advanced to the duodenum and used to inject contrast into the bile duct. The ERCP was accomplished without difficulty. The patient tolerated the procedure well. Findings: A ventilation mechanic film of the abdomen was obtained. Surgical clips, consistent with a previous cholecystectomy, were seen in the area of the right upper quadrant of the abdomen. The esophagus was successfully intubated under direct vision. The scope was advanced to a normal major papilla in the descending duodenum without detailed examination of the pharynx, larynx and associated structures, and upper GI tract. The upper GI tract was grossly normal. The major papilla was on the rim of a diverticulum. The ventral pancreatic duct was inadvertently cannulated with the short-nosed traction sphincterotome and guidewire without any complications. The wire was kept in place. A 0.025 inch x 270 cm angled Visiglide wire was passed into the biliary tree. The CleverCut distal wire sphincterotome was passed over the guidewire and the bile duct was then deeply cannulated. Contrast was injected. I personally interpreted the bile duct images. Ductal flow of contrast was adequate. Image quality was adequate. Contrast extended to the main bile duct. Opacification of the entire biliary tree except for the gallbladder was successful. The maximum diameter of the ducts was 9 mm. The lower third of the main bile duct contained two stones. Biliary sphincterotomy was made with a monofilament traction (standard) sphincterotome using ERBE electrocautery. There was no post-sphincterotomy bleeding. Bile duct orifice was successfully dilated with an 8 mm balloon dilator. The biliary tree was swept with a 15 mm balloon starting at the bifurcation. Sludge was swept from the duct. Two stones were removed. No stones remained. One 10 Fr by 7 cm plastic biliary stent with a single external flap and a single internal flap was placed into the common bile duct. Bile flowed through the stent. The stent was in good position. One 5 Fr by 9 cm plastic pancreatic stent with a single external pigtail and no internal flaps was placed into the ventral pancreatic duct. Clear fluid flowed through the stent. The stent was in good position. 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 - Choledocholithiasis was found. Complete removal was accomplished by biliary sphincterotomy, balloon dilation sphincteroplasty and balloon extraction. - One plastic biliary stent was placed into the common bile duct. - One plastic pancreatic stent was placed into the ventral pancreatic duct. Recommendation: - Return patient to [facility] for [facility] care. - Clear liquid diet today. - Resume Eliquis (apixaban) at prior dose in 3 days. - Repeat ERCP in 6 weeks to remove stent. Pablo Garibay MD 04/20/2021 10:56:45 AM This report has been signed electronically. Note Initiated On: 04/20/2021 9:11 AM Number of Addenda: 0 I attest to the content of the Intraoperative Record and orders documented therein, exceptions below {[id number]}
--- NOTE | 2021-04-20 11:00 | Fluoroscopy Report ---
[place] ERCP biliary ductal HISTORY: 89 years-old Male ERCP acute right upper quadrant abdominal pain in patient with history of cholecystectomy. COMPARISON: CT abdomen and pelvis 04/18/2021 TECHNIQUE: 11 spot fluoroscopic images of the abdominal right upper quadrant were obtained utilizing 53.4 seconds fluoroscopy time FINDINGS: Endoscope is noted within the duodenum. There is cannulation of the pancreatic and common bile ducts. Cholecystectomy clips are present. Retrograde injection of contrast into the common bile duct. There is moderate luminal narrowing of the distal common bile duct with a distal common bile duct filling defect. Subsequent images demonstrate balloon sweep of the common bile duct with interval placement o f a common bile duct stent which appears to be in satisfactory positioning. The last image demonstrat es a round opacity overlying the distal duct which may reflect a common bile duct stone. IMPRESSION: Fluoroscopic assistance as above. ACT 112: Negative or not required by law. The above report was generated using voice recognition software. It may contain grammatical, syntax o r spelling errors. Electronically signed by: Brayden Gonsalez M.D. 04/20/2021 10:59 AM
--- NOTE | 2021-04-20 11:06 | Anesthesiology Progress Note ---
Date of Service April 20, 2021 Anesthesia Post Procedure Vital Signs Vital Signs: Temp Pulse Pulse Pulse Resp BP BP 04/20/21 10:55 68 20 138/71 04/20/21 10:47 97.3 F L 74 20 142/76 H 04/20/21 08:31 97.7 F 68 17 122/62 04/20/21 07:30 99.9 F H 101 H 17 134/82 04/20/21 07:18 67 04/20/21 04:07 98.2 F 63 18 104/52 L 04/20/21 03:10 70 21 04/19/21 23:22 97.5 F L 70 20 109/57 L 04/19/21 22:20 71 20 04/19/21 19:43 97.7 F 67 18 130/83 04/19/21 14:42 99.0 F 79 18 114/66 04/19/21 11:06 97.7 F 82 16 127/63 Pulse Ox 04/20/21 10:55 96 04/20/21 10:47 96 04/20/21 08:31 93 04/20/21 07:30 95 04/20/21 07:18 04/20/21 04:07 92 04/20/21 03:10 94 04/19/21 23:22 93 04/19/21 22:20 94 04/19/21 19:43 95 04/19/21 14:42 96 04/19/21 11:06 92 Pain Intensity Abdomen: Pain Intensity: 8 Head: Pain Intensity: 6 Transfer of Care Handoff Completed per policy Notes Mental Status: alert / awake / arousable and participated in evaluation Patient Amnestic to Procedure: Yes Nausea / Vomiting: adequately controlled Pain: adequately controlled Airway Patency, RR, SpO2: stable & adequate BP & HR: stable & adequate Hydration State: stable & adequate Anesthetic Complications: no major complications apparent and Pt Satisfied with anesthetic care
[2021-04-20] MEDS: METOPROLOL SUCC 25MG EXT REL TAB PO SCH (11:38)
[2021-04-20] MEDS: hydrALAZINE HCL 25 MG TAB PO SCH ×2 (11:39→13:05)
[2021-04-20] MEDS: SACCHAROMYCES BOULARDII 250 MG CAP PO SCH (11:40)
[2021-04-20] MEDS: CITALOPRAM 40 MG TAB PO SCH (11:40)
[2021-04-20] MEDS: *AZELASTINE*ORDER AWAITING ACTION SCH (11:41)
--- NOTE | 2021-04-20 13:38 | Discharge Summary ---
Date of Service April 20, 2021 Admission HPI Per Admitting Provider Admission HPI: 89 YOM with past medical history of Aflutter with cardioversion in 2020 (on BB and Eliquis), HTN, CKD III, chronic cervical pain treated with radiofrequency ablations, GERD, BPH, ELIANA, OA, Diverticulitis, Chronic Diarrhea, choledocholithiasis, cholecystectomy, [place] presents for evaluation of left lower quadrant pain diagnosed with diverticulitis. This is the patient's third presentation to the emergency department for the same complaints. Patient was evaluated on 11 April 2021, again on April 14 when he was hospitalized until April 17. Initially upon discharge he did well, however progressively his left lower quadrant pain continued to become worse. He reports he has been having regular bowel movements. Following a low fiber low-fat diet as he was instructed, and taking all medications. He states his pain at baseline is a six or an 8 out of 10 with exacerbation up to a 10 out of 10. He denies any subjective fever, chills vomiting diarrhea chest pressure chest pain shortness of breath or focal neurological symptoms, endorsing intermittent nausea and left lower quadrant pain as described above. Previously he was treated with Zosyn while hospitalized and also noted to have a UTI demonstrating E. coli resistant to ampicillin sulbactam, Cipro, levo, TMP-SMX. In the emergency department routine labs were obtained CBC was unremarkable, Chem-7 demonstrated a creatinine of 2.02 increased from his most recent creatinine of 1.56, glucose of 111, LFTs within normal limits, UA pending, lactate pending. CTAP demonstrated mild acute diverticulitis of the descending and sigmoid colon slight improvement from 04/13 no evidence of perforation or abscess, history of cholecystectomy with 5 mm radiodensity within the duodenum which is likely intraluminal. Patient received IV cefoxitin, and a liter of fluid. Hospital service was consulted for admission. Progress note HPI on 04/19/21: Patient seen on daily rounds today. He was admitted d/t increasing LUQ pain. Admitted 04/14/21 through 04/17/21 for acute diverticulitis and UTI. He was treated with Zosyn responded favorably. LLQ and suprapubic pain resolved and he was tolerated oral intake. He was having persistent LUQ pain (that has been ongoing x 6 months). In review of old records- patient had an OP workup showing pancreatitis and CT evidence of a 4mm stone in the CBD (has does not have a GB). His lipase and LFT's remained WNL during his hospitalization. His CT done during that last hospitalization showed no evidence of a CBD stone. He has an MRCP showing no evidence of stone but filling defects (thought to be slidge). GI was involved and recommended ERCP as an OP. He was D/C'ed with Augmentin (based on urine culture- MDR E.Coli). Patient has been home for 24 hours and claims that his LUQ pain has gotten worse. Unable to tolerate oral intake. No N/V. Is having diarrhea (not new. Chronic- has been worked up by GI including stool studies and celiac panel). Diarrhea made worse by abx therapy on board. Upon return to the ED, WBC WNL. TB/LFT's and lipase remain WNL. Cr. was elevated at 2.02 (baseline around 1.3). Was hydrated overnight and his cr. has improved to 1.6. Overall, patient reports "I feel great". He is tolerated oral intake. Admission Exam Per Admitting Provider General: Resting comfortably in his hospital bed. A&O X3 NAD. Cardiac: RRR with 1/6 EDU Lungs: CTA without W/R/R Abdomen: Normoactive X4. Soft. Absolutely no tenderness in the left lower quadrant or suprapubic region. Mild left upper quadrant abdominal pain Extremities: No peripheral clubbing cyanosis or edema Principal Diagnosis Working diagnosis: 1. Choledocholithiasiss/p ERCP 2. RUQ tendernesssecondary to #1 3. Mild diverticulitisimproving 4. AKIresolved 5. Acute on chronic diarrheaseems to have a component of antibiotic associated diarrhea Chronic medical conditions include: 1. Atrial flutter on chronic anticoagulation therapywill hold Eliquis for potential ERCP 2. Dementiacontinue Aricept 3. CHFcurrently volume contracted. Hold Bumex for now 4. HTNcontinue metoprolol and hydralazine. Lisinopril on hold due to VIMAL 5. Depressioncontinue Celexa Discharge Exam General: Resting comfortably in his hospital bed. A&O X3 NAD. Cardiac: Currently in a normal sinus rhythm with controlled ventricular rate Lungs: CTA without W/R/R Abdomen: Normoactive X4. Soft and nontender in all quadrants. Extremities: No peripheral clubbing cyanosis or edema Discharge Data Allergies Allergy/AdvReac Type Severity Reaction Status Date / Time vancomycin Allergy Intermediate LOWER Verified 04/18/21 13:48 EXTREMITY SWELLING, FEVER Sulfa (Sulfonamide Allergy Mild Rash Verified 04/18/21 13:48 Antibiotics) gabapentin AdvReac Mild drowsy,conf Verified 04/18/21 13:48 used adhesive AdvReac peña tears Verified 04/19/21 00:06 Consultations General surgery: This is an 89y M with a PMH of CKD, aflutter on eliquis, GERD, HTN who presented to the [facility] ED on 04/18/21 with complaints of abdominal pain and overall not feeling great in general. In the ER patient underwent a CT a/p that revealed mild acute diverticulitis of the descending and sigmoid colon has slightly improved from the 04/13/2021 exam, no evidence of perforation or abscess. Today WBC 3.6, patient is afebrile with stable vital signs. His abdomen is soft and non tender to palpation. He reports feeling vastly better than yesterday. He is sitting up in bed tolerating a regular breakfast. As patient is improved we agree with current measures. Patient can be discharged when ready on a course of po cipro/flagyl. He should follow up with GI as previously planned and undergo Colonoscopy in 6-8 weeks and ongoing workup for ?choledocholithiasis.No plans for surgical intervention at this time. As patient is doing well we will sign off, please call with any questions/concerns. GI: (1) Diverticulitis: (2) RUQ abdominal tenderness: (3) Choledocholithiasis: diverticulitis appears to be improving, continue cipro and flagyl for a total of 7-10 days of antibiotics. He does have persistent choledocholithiasis however. Recs: --NPO post midnight --EUS/ERCP tomorrow morning --continue antibiotics for diverticulitis --supportive care --rest as per primary team Thank you for allowing me to participate in the care of this patient Procedures Performed Operation Date: 04/20/21 09:00 Actual Procedures p Endoscopic Retrograde Cholangiopancreato - Pablo Garibay MD Choledocholithiasis found. Complete removal was accomplished by biliary sphincterectomy, balloon dilation sphincteroplasty, and balloon extraction. One plastic biliary stent was placed into the common bile duct. One plastic pancreatic stent was placed into the ventral pancreatic duct Ordered Studies 04/18/21 22:26 CT abd pelvis wo con Stat IMPRESSION: 1. Mild acute diverticulitis of the descending and sigmoid colon has slightly improved from the 04/13/2021 exam. No evidence of perforation or abscess. 2. Cholecystectomy. There is a 5 mm radiodensity within the duodenum which is likely intraluminal. A calculus within the ampulla is considered less likely. Correlate with serum bilirubin. 3. Prostamegaly 4. Additional findings as above. 04/20/21 08:02 FL ERCP biliary ductal Routine FINDINGS: Endoscope is noted within the duodenum. There is cannulation of the pancreatic and common bile ducts. Cholecystectomy clips are present. Retrograde injection of contrast into the common bile duct. There is moderate luminal narrowing of the distal common bile duct with a distal common bile duct filling defect. Subsequent images demonstrate balloon sweep of the common bile duct with interval placement of a common bile duct stent which appears to be in satisfactory positioning. The last image demonstrates a round opacity overlying the distal duct which may reflect a common bile duct stone. IMPRESSION: Fluoroscopic assistance as above. Hospital Course (1) Choledocholithiasis: * I am suspicious that this is likely the cause of patient's chronic/yet intermittent left upper quadrant discomfort. * Prior to his previous hospitalization, he had a CT of the abdomen and pelvis showing a 4 mm stone in the common bile duct with an elevated lipase along with transaminitis. Lab values have since normalized and a follow-up CT scan showed no evidence of a common bile duct stone but an MRCP did confirm filling defects likely consistent with sludge. He was seen by GI during that last hospitalization and the plan was for an outpatient ERCP as patient's lab data was normal and he was tolerating oral intake. Unfortunately, patient's pain has been persistent which has limited his ability to tolerate oral intake lead ing to this hospitalization. * ERCP performed by GI on 04/20/21. 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 - Choledocholithiasis was found. Complete removal was accomplished by biliary sphincterotomy, balloon dilation sphincteroplasty and balloon extraction. - One plastic biliary stent was placed into the common bile duct. - One plastic pancreatic stent was placed into the ventral pancreatic duct. Recommendation: - Return patient to hospital [facility] for ongoing care. - Clear liquid diet today. - Resume Eliquis (apixaban) at prior dose in 3 days. - Repeat ERCP in 6 weeks to remove stent. (2) Diverticulitis: * Patient does not have any clinical evidence to suggest acute diverticuli tis at this time. During his last hospitalization, he did have radiographic evidence of diverticulitis with left lower quadrant pain. He is no longer having left lower quadrant pain or discomfort and he is tolerating oral intake. Patient's antibiotic therapy had been transitioned to Cipro/Flagyl upon admission. This was continued as his FU urine culture showed no growth (no need for augmentin). Cipro/Flagyl is a lesser chance of causing antibiotic associated diarrhea as does the the Augmentin. * Although CT scan did show continued diverticulitis, it was improved compared to his prior film. There is no evidence of abscess or perforation. Patient nontender in the LLQ. I do not believe that this is contributing to his current pain * tolerating oral intake * seen by general surgery who agreed with continued abx therapy and that this was likely not contributing to patient's pain. (3) VIMAL (acute kidney injury): * Likely secondary to lack of oral intake, diarrhea, and further exacerbated by his home meds (including lisinopril and Bumex). * resolved with gentle IV hydration and withholding nephrotoxic agents (back to baseline) * okay to resume home meds tomorrow (bumex and lisinopril) (4) Diarrhea: * acute on chronic * chronic-- etiology unclear. Follows GI (? d/t PPI which has since been changed to H2 jose j, ? d/t patient being s/p cholecystectomy) * acute exacerbation made worse by augmentin (changed to cipro/flagyl) * stool studies done and negative * use colestipol prn * follow up with GI (5) Depression: * chronic. continue celexa (6) Dementia: * chronic. continue aricept (7) Atrial flutter: * currently in a NSR with CVR. * continue metoprolol and Eliquis (which was changed to 2.5mg with his last hospitalization given cr of 1.5 but cr now 1.3). Hold eliquis x 3 days then resume at 5mg bid. FU labs per PCP/cardiology (8) GERD (gastroesophageal reflux disease): * PPI changed to H2 jose j during last hospitalization given chronic diarrhea. continue pepcid (9) BPH (benign prostatic hyperplasia): * chronic but asymptomatic (10) CKD (chronic kidney disease) stage 3, GFR 30-59 ml/min: * at baseline (~1.3) (11) Mild obstructive sleep apnea: * continue CPAP Total Time Total Time Spent Total Time Spent (In Minutes): 30 min Total Time Includes: Examination of the Patient, Discharge Planning, Medication Reconciliation and Communication With Other Providers Discharge Plan Discharge Items Patient Disposition: Home - Self-Care Reason For Visit: choledocholithiasis Discharge Diagnosis: choledocholithiasis s/o ERCP Condition on Discharge: Good Activity: Resume your previous activity Non-emergency contact: Primary Care Provider and Demand Planning Manager Call non-emergency contact if: you have any medication questions and your pain is not controlled Follow-up/Referrals: Sally Schaeffer CRNP [Primary Care Provider] - Diet: Low Fiber Addtl Attending Provider Instructions: - You were hospitalized for Abdominal pain related to Choledocholithiasis (stones and sludge in the common bile duct). - In addition, you had acute kidney injury (made worse by medications that you take routinely- in the setting of dehydration) - You had a procedure called an ERCP. You had 2 stones removed, sludge and 2 stents placed in the ducts) - You are on continued antibiotic therapy for your prior diagnosis of diverticulitis (which looks to be improving on imaging) - your antibiotic regimen was; however, changed to something less likely to cause diarrhea (as you no longer need the Augmentin for the UTI-- this has since resolved) - take probiotic while on antibiotic (to help decrease risk of diarrhea). Can also eat yogurt/cheese WITH LIVE CULTURES - ordered colestipol to take every 6 hours NEEDED for loose stools. - follow up with GI (call them Wednesday to make a FU appt). You need to have a repeat ERCP in 6 weeks to remove the stents placed - as previously mentioned- maintain a low reside diet (for the recent diverticulitis) - FU with your PCP: 7-10 days - I do encourage FU labs to continue to trend your renal function (at discretion of your PCP) - HOLD ELIQUIS. RESUME IN 3 DAYS: you can resume the eliquis 5mg twice a day in 3 days. No longer need to be on 2.5mg twice a day) - resume the rest of your prehospital medications - Return to the ED for new or worsening symptoms Pending Studies at Discharge: No Stand-Alone Forms: My [facility] Medications and DC Order Prescriptions: New colestipol [Colestid] 1 gram Tablet 1 g PO QID PRN (Reason: diarrhea) Qty: 90 RF: 0 Saccharomyces boulardii [Florastor] 250 mg Capsule 250 mg PO BID Qty: 10 RF: 0 ciprofloxacin HCl [Cipro] 500 mg tablet 500 mg PO BID Qty: 10 RF: 0 metronidazole [Flagyl] 500 mg tablet 500 mg PO Q8H Qty: 15 RF: 0 Eliquis 5 mg tablet 5 mg PO BID Qty: 60 RF: 0 Continued citalopram 40 mg tablet 40 mg PO QAM Qty: 90 RF: 3 lisinopril 10 mg tablet 10 mg PO DAILY Qty: 30 RF: 3 bumetanide 1 mg tablet 1 mg PO DAILY RF: 0 hydralazine 25 mg tablet 25 mg PO TID RF: 0 famotidine 20 mg tablet 20 mg PO BID Qty: 60 RF: 4 azelastine 205.5 mcg (0.15 %) spray,non-aerosol 1 spray intranasal BID Qty: 30 RF: 3 lidocaine 5 % adhesive patch,medicated 1 patch transdermal QAM PRN (Reason: Pain) RF: 0 cranberry 500 mg capsule 1,000 mg PO QAM RF: 0 donepezil 23 mg tablet 23 mg PO HS RF: 0 metoprolol succinate 25 mg tablet extended release 24 hr 25 mg PO DAILY RF: 0 Changed acetaminophen 500 mg capsule 1,000 mg PO TID PRN (Reason: pain) Qty: 0 RF: 0 Discontinued Eliquis 2.5 mg tablet 2.5 mg PO BID Qty: 60 RF: 0 amoxicillin-pot clavulanate [Augmentin] 875-125 mg tablet 1 tab PO BID RF: 0 Discharge Orders: Discharge Order (Routine); Ordered 04/20/21 Ordered By: Maria Fernanda Coyle/Other Patient Handouts: ERCP Endoscopic Retrograde ... Admission Data Admit Date/Time: 04/19/21 01:35 Attending Provider: Harjit Ruiz Admit Provider: Nino Shah I. Primary Care Provider: Sally Schaeffer Other Providers: Sal Maciel ; Jaye Shah ; Marcello Ruiz ; Selena Figueroa ; Tyson Rubio ; Dorothea Garcia ; Sam Cruz ; Mabel Noonan ; Ramez Kaufman ; Valdo Santizo ; Miranda Elizondo ; Mercedes Solorzano ; Dorothy Aguilar ; Flora Benjamin ; Pablo Garibay Other Interventions: Discharge Summary Assessment (RN) Last Done: 04/20/21 15:28 Supervising Physician Co-Signing Physician Notes Patient seen and examined on the day of discharge. I agree with the discharge summary by Maria Fernanda ROME. I have reviewed the chart including labs, imaging and plans for discharge. patient feeling better after ERCP two stones removed from CBD, should aleviate his pain completely - Choledocholithiasis: ERCP on 04/20 with sphincterotomy and balloon extraction of two stones, no signs of cholangitis biliary stent placed, follow up with GI in 6 weeks for stent removal - Acute diverticulitis: antibiotics changed to Cipro/Flagyl, complete course including days he was treated from prior admission Coding Level of Care Code D/C DAY MANAGEMENT <30 MINS Diagnoses Choledocholithiasis K80.50 Diverticulitis K57.92 VIMAL (acute kidney injury) N17.9 Diarrhea R19.7 Diarrhea type: unspecified type Depression F32.9 Dementia F03.90 Dementia behavioral disturbance: without behavioral disturbance Dementia type: unspecified type Atrial flutter I48.3 Atrial flutter type: typical GERD (gastroesophageal reflux disease) K21.9 Esophagitis presence: esophagitis presence not specified BPH (benign prostatic hyperplasia) N40.0 Lower urinary tract symptom presence: symptoms absent CKD (chronic kidney disease) stage 3, GFR 30-59 ml/min N18.3 Mild obstructive sleep apnea G47.33 Time Spent (min) 30
[2021-04-20] MEDS ORDERED: FAMOTIDINE 20 MG TAB PO SCH (21:00)
== END 2021-04-20 17:43 | disposition home or self-care (01) ==
LOC: ED 20:27 → 2N 20:27 → SUATTDRO 04-19 01:35 → 2N 04-19 02:04

== ENCOUNTER 2021-05-29 17:43 | Inpatient (IN) ==
[2021-05-29] MEDS ORDERED: SODIUM CHLORIDE 0.9% 1000ML 1,000 ML IV ONE (19:32)
[2021-05-29] MEDS ORDERED: FAMOTIDINE 20MG IV PUSH 20 MG/5 ML SYR IV STA (19:32)
[2021-05-29 20:08] LABS: Basophils # (auto) 0.01 K/uL (0-0.2); Basophils % (auto) 0.3 %; Eosinophils # (auto) 0.05 K/uL (0-0.5); Eosinophils % (auto) 1.4 %; Hematocrit (blood only) 36.9 % (42-52); Hemoglobin 12.3 g/dL (14.0-18.0); Lymphocytes # (auto) 1.23 K/uL (1.2-3.4); Lymphocytes % (auto) 33.2 %; Mean Corpuscular Hemoglobin 31.9 pg (25-34); Mean Corpuscular Hgb Conc 33.3 g/dL (32-36); Mean Corpuscular Volume 95.8 fL (80-100); Mean Platelet Volume 9.2 fL (7.4-10.4); Monocytes # (auto) 0.51 K/uL (0.11-0.59); Monocytes % (auto) 13.8 %; Neutrophils % (auto) 51.3 %; Platelet Count 211 K/uL (130-400); RDW Standard Deviation 48.8 fL (36.4-46.3); Red Blood Count 3.85 M/uL (4.7-6.1)
[2021-05-29 20:10] LABS: Appearance Urine Clear (Clear); Bilirubin Urine Negative (Negative); Blood Urine Negative (Negative); Color Urine Dark Yellow; Glucose Urine UA Negative (Negative); Ketones Urine Negative (Negative); Leukocyte Esterase Urine Negative (Negative); Nitrite Urine Negative (Negative); Protein Urine Negative (Negative); Specific Gravity Urine 1.023 (1.000-1.030); Urobilinogen Urine Negative (Negative)
[2021-05-29 20:28] LABS: Alanine Aminotransferase 21 U/L (12-78); Albumin Level 3.3 gm/dl (3.4-5.0); Aspartate Aminotransferase 19 U/L (15-37); BUN Creatinine Ratio 14.7 (10-20); Bilirubin Direct < 0.1 mg/dl (0-0.2); Blood Urea Nitrogen 23 mg/dl (7-18); Calcium 8.7 mg/dl (8.5-10.1); Carbon Dioxide 30 mmol/L (21-32); Chloride 106 mmol/L (98-107); Creatinine Clr Calc Pharmacy 32.9 ml/min; Est GFR (African American) 44.6 ml/min; Est GFR (Non-African American) 38.5 ml/min; Glucose 107 mg/dl (70-99); Lipase 658 U/L (73-393); Magnesium 2.2 mg/dl (1.8-2.4); Potassium 4.9 mmol/L (3.5-5.1); Sodium 138 mmol/L (136-145)
--- NOTE | 2021-05-29 20:30 | XRay Report ---
XR chest 1V portable HISTORY: 89 years-old Male Chest Pain . Acute atypical chest pain COMPARISON: Chest radiograph 04/18/2021 TECHNIQUE: Portable AP view of the chest FINDINGS: Cardiac silhouette is upper limits of normal in size. Chronic right hemidiaphragmatic elevation. No p neumothorax, pleural effusion, airspace consolidation or overt pulmonary edema. Degenerative changes of the left shoulder and spine. Reverse right shoulder total joint arthroplasty. IMPRESSION: No acute process. ACT 112: Negative or not required by law. The above report was generated using voice recognition software. It may contain grammatical, syntax o r spelling errors. Electronically signed by: Brayden Gonsalez M.D. 05/29/2021 8:29 PM
[2021-05-29 20:37] LABS: Albumin Globulin Ratio 1.1 (0.9-2); Alkaline Phosphatase 67 U/L (45-117); Bilirubin,Total 0.3 mg/dl (0.2-1); Globulin 3.1 gm/dl (2.5-4.0); Phosphorus 5.1 mg/dl (2.5-4.9); Thyroid Stimulating Hormone 0.786 uIu/ml (0.300-4.500); Total Protein 6.4 gm/dl (6.4-8.2); Troponin I < 0.015 ng/ml (0-0.045)
[2021-05-29] MEDS ORDERED: OPTIRAY 320 125ml IV ONE (20:47)
--- NOTE | 2021-05-29 21:15 | Emergency Department Note ---
Impression & Plan Dizziness, Headache, On apixaban therapy, Dementia ED Provider Note NAME: Makenna SERRANO AGE: 89 SEX: M ARRIVES VIA: Walk-In INFORMANT: Patient, ED PROVIDER(S): Kirill Alfaro MD CHIEF COMPLAINT: Headache, dizziness, nausea. PLAN: Disposition: Admit MEDICAL DECISION MAKING: The patient is a pleasant 89-year-old gentleman with a past medical history of dementia, atrial fibrillation on Eliquis, GERD, CKD, who presents to the emergency department accompanied by his daughter for evaluation of headache, dizziness and nausea that has been ongoing for the past several days. They report he has a long history of headache and neck pain as well as dizziness but the symptoms flared recently. He denies any vomiting, diarrhea, urinary symptoms. Denies any chest pain or shortness of breath. He reports he has been vaccinated against COVID-19 and deny any known COVID-19 exposures. On arrival the patient is fatigued appearing but no acute distress, afebrile stable vital signs. He appears clinically dry. He has mild confusion but is alert and oriented to self and place and situation. He has no focal neurologic deficits. EKG without overt acute ischemia. Chest x-ray negative for acute cardiopulmonary process. WBC 3.7 and H/H 12.3/36.9 similar to prior values. Platelets within normal limits. Chemistry without metabolic acidosis. Creatinine 1.5 within prior values in the setting of CKD. Electrolytes without significant abnormality. T roponin negative/undetectable. Lipase is marginally elevated and nonspecific at 658. TSH within normal limits. UA without convincing evidence of infection. COVID-[address] of the head and CT of the head neck were performed. Per preliminary stat rad report this was negative for acute ischemia or ICH. 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 Upon reevaluation patient did feel somewhat improved after IV fluid hydration. However given his symptoms of dizziness in setting of CT findings they agree with plan for admission. Case was discussed [place] Phan, [facility] [place], who will evaluate the patient for admission. Case d/w with Dr. Salazar, [place] neurology on-call, agrees findings unlikely to be acute and flow is present given V1 and V4 patent. Admitting team updated. Triage Nursing notes reviewed and agree them. Prior medical records reviewed Vital Signs: reviewed and remarkable for no significant abnormalities Differential diagnosis: Infection, dehydration, metabolic abnormality, hypo/hyperglycemia, electrolyte disturbance, anemia, hypoxia, cardiac sources, intracerebral event, toxicologic, neurologic, as well as other pathologies. ER treatment provided: See below. Diagnostics interpreted by me: ECG: Sinus rhythm with occasional PVCs, 63 bpm, right bundle branch block, LVH, no overt ST elevation or depression, QTC 458, QRS 132. Cardiac Monitoring: An order for continuous cardiac monitoring was placed and demonstrated Sinus rhythm with occasional PVCs, 63 bpm. Laboratory studies: See below Imaging studies: [facility] Preliminary Findings Only See Final Report For Complete Findings CT HEAD: No acute intracranial hemorrhage. No mass-effect or midline shift. Scattered periventricular subcortical foci of white matter hypoattenuation is likely the sequela of chronic small vessel ischemic changes. Skull is intact. Visualized paranasal sinuses and mastoid air cells are clear. Radiologist: Saurabh Diallo MD Study ready at 21:06 and initial results transmitted at 21:09 -- Preliminary Findings Only See Final Report For Complete Findings CTA HEAD: No acute large vessel occlusion. If there is continued concern of acute ischemia, consider MRI of the brain as it is a more sensitive modality in its early detection. No high-grade stenosis. Mild narrowing of the cavernous segments of the internal carotid artery 70 to calcific atherosclerosis. No intracranial aneurysm. 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 Only a proximal portion of the left V1 segment and terminating portion of the V4 segment appear patent. While this may be acute from dissection, this is also possibly secondary to chronic occlusion from remote injury or atherosclerotic disease. It is also rarely aplastic. The right vertebral artery and cerebral arteries appear intact. Mild calcific atherosclerosis of the carotid bulbs and proximal internal carotid arteries with less than 25% stenosis. Internal fixation hardware in the dens. Radiologist: Saurabh Diallo MD Study ready at 21:08 and initial results transmitted at 21:21 Consultation(s): Dr. Phan, [facility] [place]. Salazar, [place] neurology. HPI: The patient is a pleasant 89-year-old gentleman with a past medical history of dementia, atrial fibrillation on Eliquis, GERD, CKD, who presents to the [facility] department accompanied by his daughter for evaluation of headache, dizziness and nausea that has been ongoing for the past several days. They report he has a long history of headache and neck pain as well as dizziness but the symptoms flared recently. He denies any vomiting, diarrhea, urinary symptoms. Denies any chest pain or shortness of breath. He reports he has been vaccinated against COVID-19 and deny any known COVID-19 exposures. ROS: See above HPI for pertinent positives & negatives. A total of 10 systems reviewed and were otherwise negative. PAST MEDICAL HISTORY:See Below PAST SURGICAL HISTORY:See Below FAMILY HISTORY:See Below SOCIAL HISTORY:See Below HOME MEDICATIONS:See Below ALLERGIES:See Below VITALS:See Below PHYSICAL EXAMINATION: GENERAL: Awake, alert, fatigued-appearing, in no distress HENT: Normocephalic, atraumatic. Oropharynx dry mucous membranes.. EYES: Normal conjunctiva. Sclera non-icteric. EOMI. No nystamgus. PEARRL. NECK: Supple. No nuchal rigidity. FROM. No JVD. RESPIRATORY: Clear to auscultation. CARDIAC: Regular rate, normal rhythm. Extremities warm and well perfused. Pulses equal. ABDOMEN: Soft, non-distended. No tenderness to palpation. No rebound or guarding. No masses. RECTAL: Deferred. MUSCULOSKELETAL: Chest examination reveals no tenderness. The back is symmetrical on inspection without obvious abnormality. There is no CVA tenderness to palpation. No joint edema. LOWER EXTREMITIES: Calves are equal size bilaterally and non-tender. No edema. No discoloration. NEURO: No focal sensory or motor deficits noted. 5/5 strength and SILT x 4 extremities. Intact finger to nose and alternating palms. SKIN: No rash or jaundice noted. Kirill Alfaro MD Past Med/Surg History Medical History Abdominal pain, acute, left lower quadrant VIMAL (acute kidney injury) Anxiety Atrial flutter DX OCT 2020> ELIQUIS/METOPROLOL 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 BPH (benign prostatic hyperplasia) Cervical facet joint syndrome Cervical radicular pain Cervical spinal stenosis Left C7 and 8 paresthesias Cervicogenic headache CKD (chronic kidney disease) stage 3, GFR 30-59 ml/min follows PCP Diverticulitis Dyslipidemia GERD (gastroesophageal reflux disease) CONTROLLED Hearing difficulty History of kidney stones Hypertension Impaired fasting glucose Hgb A1C 6.8 on 04/11/20 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 Myofascial pain Nocturnal hypoxemia Occipital neuralgia of left side Osteoarthritis Pancreatitis Surgical History H/O colonoscopy (06/2013) History of cystoscopy History of difficult intubation CHOLECYSTECTOMY= 01/11/14= GLIDESCOPE #4 (2/2 DECREASED CERVICAL ROM) BUT HAD GRADE VIEW 1, MAC 4 WITH ANKLE SURGERY 11/09/14 PER [facility] RECORDS History of esophagogastroduodenoscopy (EGD) (09/2019) History of shoulder surgery Rt shoulder - 09/22/18 [facility] History of total knee replacement B/L WITH REVISIONS; LEFT TKA REVISION= 05/13/17= SAB X 2 ATTEMPTS + PNB AT [facility] Hx of cervical spine surgery ROM LIMITED FROM SIDE TO SIDE Hx of total ankle replacement RIGHT S/P cholecystectomy S/P ERCP 04/20/21 Dr. Pablo Garibay- 2 stones removed, 2 stents placed Squamous cell carcinoma of back resolved Family History Son Family history of diabetes mellitus Other No family history of adverse response to anesthesia No pertinent family history Denies family history of Ovarian cancer Prostate cancer Myocardial infarction Breast cancer Colorectal cancer Social History Smoking Status: Never smoker Second Hand Exposure: No; Hx Alcohol Use: No Hx Substance Use: No Preferred Language: Chinese Communication Ability: Effective Visual Impairment: No Limitations Highway Maintenance Supervisor Required: No Beliefs That Will Affect Care: None marital status: Current Living Situation: Spouse Current Living Situation Comment: Lives with , caregivers current occupational status: retired 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 Allergies Allergies Allergy/AdvReac Type Severity Reaction Status Date / Time vancomycin Allergy Intermediate LOWER Verified 05/29/21 21:00 EXTREMITY SWELLING, FEVER Sulfa (Sulfonamide Allergy Mild Rash Verified 05/29/21 21:00 Antibiotics) gabapentin AdvReac Mild drowsy,conf Verified 05/29/21 21:00 used adhesive AdvReac peña tears Verified 05/29/21 21:00 Home Meds Home Medications Medication Instructions Recorded Confirmed cranberry 500 mg capsule 1,000 mg PO QAM 05/31/19 05/29/21 lidocaine 5 % topical patch 1 patch TRANSDERMAL QAM PRN ea 01/21/21 05/29/21 bumetanide 1 mg tablet 1 mg PO DAILY 04/08/21 05/29/21 hydralazine 25 mg tablet 25 mg PO TID 04/08/21 05/29/21 donepezil 23 mg tablet 23 mg PO HS 04/12/21 05/29/21 metoprolol succinate 25 mg 25 mg PO DAILY 04/18/21 05/29/21 tablet,extended release 24 hr Otc Potassium 1 tab PO DAILY 05/29/21 Previous Rx's Medication Instructions Recorded citalopram 40 mg tablet 40 mg PO QAM #90 tab 08/26/20 azelastine 205.5 mcg (0.15 %) 1 spray INTRANASAL BID #30 ml 01/07/21 nasal spray lisinopril 10 mg tablet 10 mg PO DAILY #30 tab 03/03/21 Saccharomyces boulardii 250 mg 250 mg PO BID #10 cap 04/20/21 capsule (Florastor) acetaminophen 500 mg capsule 1,000 mg PO TID PRN #0 cap 04/20/21 apixaban 5 mg tablet (Eliquis) 5 mg PO BID #60 tab 04/20/21 colestipol 1 gram tablet (Colestid) 1 g PO QID PRN #90 tab 04/20/21 famotidine 20 mg tablet 20 mg PO BID #180 tab 05/13/21 dicyclomine 10 mg capsule 10 mg PO DAILY #90 cap 05/28/21 Results & Data (ED) Vital Signs Vital Signs - 24 hr 05/29/21 18:24 05/29/21 19:30 05/29/21 19:32 Temperature 36.8 C Temperature Source Oral Pulse Rate 74 Pulse Rate [Apical] 64 Pulse Rhythm Regular Pulse Strength Normal Respiratory Rate 20 20 20 Respiratory Effort / Characteristics Non-Labored Spontaneous Non-Labored Respiratory Depth Normal Normal Respiratory Pattern Regular Blood Pressure 112/61 Blood Pressure [Right Arm] 132/60 Blood Pressure Mean 78 Blood Pressure Mean [Right Arm] 84 Blood Pressure Position [Right Arm] Lying Pulse Oximetry 95 98 98 Oxygen Delivery Method Room Air Room Air Room Air Sepsis Recent Fever Within 48 Hours No Sepsis New/Unexplained Change in Mental Status N/A Sepsis Action Taken by Nursing No Action Required 05/29/21 21:14 Temperature Temperature Source Pulse Rate Pulse Rate [Apical] 71 Pulse Rhythm Pulse Strength Respiratory Rate 20 Respiratory Effort / Characteristics Non-Labored Spontaneous Respiratory Depth Normal Respiratory Pattern Blood Pressure Blood Pressure [Right Arm] 124/70 Blood Pressure Mean Blood Pressure Mean [Right Arm] 88 Blood Pressure Position [Right Arm] Pulse Oximetry 97 Oxygen Delivery Method Room Air Sepsis Recent Fever Within 48 Hours Sepsis New/Unexplained Change in Mental Status Sepsis Action Taken by Nursing Laboratory Data Attestation: I reviewed the patient's lab results. Result diagrams: 05/29/21 19:43 05/29/21 19:43 Lab Results 05/29/21 05/29/21 05/29/21 Range/Units 19:00 19:43 19:43 WBC 3.70 L (4.8-10.8) K/uL RBC 3.85 L (4.7-6.1) M/uL Hgb 12.3 L (14.0-18.0) g/dL Hct 36.9 L (42-52) % MCV 95.8 (80-100) fL MCH 31.9 (25-34) pg MCHC 33.3 (32-36) g/dL RDW Std Deviation 48.8 H (36.4-46.3) fL RDW Coeff of Reilly 14.0 (11.5-14.5) % Plt Count 211 (130-400) K/uL MPV 9.2 (7.4-10.4) fL Immature Gran % (Auto) 0.0 % Neut % (Auto) 51.3 % Lymph % (Auto) 33.2 % Morrison % (Auto) 13.8 % Eos % (Auto) 1.4 % Baso % (Auto) 0.3 % Neut # (Auto) 1.90 (1.4-6.5) K/uL Lymph # (Auto) 1.23 (1.2-3.4) K/uL Morrison # (Auto) 0.51 (0.11-0.59) K/uL Eos # (Auto) 0.05 (0-0.5) K/uL Baso # (Auto) 0.01 (0-0.2) K/uL Immature Gran # (Auto) 0.00 (0.00-0.02) K/uL Sodium 138 (136-145) mmol/L Potassium 4.9 (3.5-5.1) mmol/L Chloride 106 (98-107) mmol/L Carbon Dioxide 30 (21-32) mmol/L Anion Gap 2.0 L (3-11) BUN 23 H (7-18) mg/dl Creatinine 1.57 H (0.6-1.4) mg/dl Est Cr Clr Drug Dosing 32.9 ml/min Est GFR ( Amer) 44.6 ml/min Est GFR (Non-Af Amer) 38.5 ml/min BUN/Creatinine Ratio 14.7 (10-20) Glucose 107 H (70-99) mg/dl Calcium 8.7 (8.5-10.1) mg/dl Phosphorus 5.1 H (2.5-4.9) mg/dl Magnesium 2.2 (1.8-2.4) mg/dl Total Bilirubin 0.3 (0.2-1) mg/dl Direct Bilirubin < 0.1 (0-0.2) mg/dl AST 19 (15-37) U/L ALT 21 (12-78) U/L Alkaline Phosphatase 67 (45-117) U/L Troponin I < 0.015 (0-0.045) ng/ml Total Protein 6.4 (6.4-8.2) gm/dl Albumin 3.3 L (3.4-5.0) gm/dl Globulin 3.1 (2.5-4.0) gm/dl Albumin/Globulin Ratio 1.1 (0.9-2) Lipase 658 H (73-393) U/L TSH 0.786 (0.300-4.500) uIu/ml Urine Color Dark Yellow Urine Appearance Clear (Clear) Urine pH 5.0 (4.5-7.5) Ur Specific [place] 1.023 (1.000-1.030) Urine Protein Negative (Negative) Urine Glucose (UA) Negative (Negative) Urine Ketones Negative (Negative) Urine Blood Negative (Negative) Urine Nitrite Negative (Negative) Urine Bilirubin Negative (Negative) Urine Urobilinogen Negative (Negative) Ur Leukocyte Esterase Negative (Negative) COVID-19 Eval Order SARS-CoV-2 (PCR) (Negative) 05/29/21 05/29/21 Range/Units 20:08 20:08 WBC (4.8-10.8) K/uL RBC (4.7-6.1) M/uL Hgb (14.0-18.0) g/dL Hct (42-52) % MCV (80-100) fL MCH (25-34) pg MCHC (32-36) g/dL RDW Std Deviation (36.4-46.3) fL RDW Coeff of Reilly (11.5-14.5) % Plt Count (130-400) K/uL MPV (7.4-10.4) fL Immature Gran % (Auto) % Neut % (Auto) % Lymph % (Auto) % Morrison % (Auto) % Eos % (Auto) % Baso % (Auto) % Neut # (Auto) (1.4-6.5) K/uL Lymph # (Auto) (1.2-3.4) K/uL Morrison # (Auto) (0.11-0.59) K/uL Eos # (Auto) (0-0.5) K/uL Baso # (Auto) (0-0.2) K/uL Immature Gran # (Auto) (0.00-0.02) K/uL Sodium (136-145) mmol/L Potassium (3.5-5.1) mmol/L Chloride (98-107) mmol/L Carbon Dioxide (21-32) mmol/L Anion Gap (3-11) BUN (7-18) mg/dl Creatinine (0.6-1.4) mg/dl Est Cr Clr Drug Dosing ml/min Est GFR ( Amer) ml/min Est GFR (Non-Af Amer) ml/min BUN/Creatinine Ratio (10-20) Glucose (70-99) mg/dl Calcium (8.5-10.1) mg/dl Phosphorus (2.5-4.9) mg/dl Magnesium (1.8-2.4) mg/dl Total Bilirubin (0.2-1) mg/dl Direct Bilirubin (0-0.2) mg/dl AST (15-37) U/L ALT (12-78) U/L Alkaline Phosphatase (45-117) U/L Troponin I (0-0.045) ng/ml Total Protein (6.4-8.2) gm/dl Albumin (3.4-5.0) gm/dl Globulin (2.5-4.0) gm/dl Albumin/Globulin Ratio (0.9-2) Lipase (73-393) U/L TSH (0.300-4.500) uIu/ml Urine Color Urine Appearance (Clear) Urine pH (4.5-7.5) Ur Specific [place] (1.000-1.030) Urine Protein (Negative) Urine Glucose (UA) (Negative) Urine Ketones (Negative) Urine Blood (Negative) Urine Nitrite (Negative) Urine Bilirubin (Negative) Urine Urobilinogen (Negative) Ur Leukocyte Esterase (Negative) COVID-19 Eval Order Covid19 at [facility] SARS-CoV-2 (PCR) NEGATIVE (Negative) Administered Medications Discontinued Medications Apixaban (Apixaban 5 Mg Tablet) 5 mg PO BID DERECK Stop: 06/29/21 02:29 Last Admin: 05/30/21 02:41 Dose: Not Given Documented by: [id number] Sodium Chloride (Nss 1000ml) 1,000 mls @ 999 mls/hr IV .Q1H1M ONE Stop: 05/29/21 20:32 Last Infusion: 05/29/21 20:59 Dose: 0 mls/hr Documented by: [id number] Admin: 05/29/21 19:57 Dose: 999 mls/hr Documented by: [id number] Famotidine (Pepcid 20mg Iv Push) 20 mg in 5 mls @ 2.5 mls/min IV NOW STA Stop: 05/29/21 19:33 Last Admin: 05/29/21 20:07 Dose: 2.5 mls/min Documented by: [id number] Acetaminophen (Ofirmev) 1,000 mg in 100 mls @ 400 mls/hr IV NOW STA Stop: 05/29/21 21:52 Last Infusion: 05/29/21 21:56 Dose: 0 mls/hr Documented by: [id number] Admin: 05/29/21 21:40 Dose: 400 mls/hr Documented by: [id number] Ioversol (Optiray 320 125ml) 120 ml IV ONCE ONE Stop: 05/29/21 20:48 Last Admin: 05/29/21 20:47 Dose: 120 ml Documented by: [id number] Imaging Data Radiologist's Impression: Chest X-Ray 05/29/21 19:32 XR chest 1V portable HISTORY: 89 years-old Male Chest Pain . Acute atypical chest pain COMPARISON: Chest radiograph 04/18/2021 TECHNIQUE: Portable AP view of the chest FINDINGS: Cardiac silhouette is upper limits of normal in size. Chronic right hemidiaphragmatic elevation. No pneumothorax, pleural effusion, airspace c onsolidation or overt pulmonary edema. Degenerative changes of the left shoulder and spine. Reverse right shoulder total joint arthroplasty. IMPRESSION: No acute process. ACT 112: Negative or not required by law. The above report was generated using voice recognition software. It may contain grammatical, syntax or spelling errors. Electronically signed by: Brayden Gonsalez M.D. 05/29/2021 8:29 PM Discharge Plan Visit Data Chief Complaint: Dizziness Stated Complaint: HEADACHE, DIZZINESS ED Provider: Kirill Alfaro Discharge Problem: Dizziness, Headache, On apixaban therapy, Dementia Patient Disposition: Admitted As Inpatient Discharge Instructions Interventions: ED Discharge Assessment Last Done: 05/30/21 01:41 Discharge Problem: Headache Qualifiers: Headache type: unspecified Headache chronicity pattern: unspecified pattern Intractability: not intractable Qualified Code(s): R51.9 - Headache, unspecified Dementia Qualifiers: Dementia type: unspecified type Dementia behavioral disturbance: without behavioral disturbance Qualified Code(s): F03.90 - Unspecified dementia without behavioral disturbance
[2021-05-29] MEDS ORDERED: ACETAMINOPHEN 1,000 MG/100 ML VIAL IV STA (21:38)
--- NOTE | 2021-05-29 23:26 | History & Physical Report ---
Date of Service May 29, 2021 Assessment & Plan (1) Dizziness: Plan: 1. 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 continued current medications - anticoagulated on apixiban for aflutter - no electrolyte derangements contributing to dizziness HTN - cont hydralazine,metoprolol, lasix Gerd - cont famotidine CKD -daily bmp to trend Cr, gentle fluids ELIANA - cpap HS DVT ppx: on xarelto fen/gi: heart healthy diet code status: dnr/dni Dispo: med/surg, PT/OT (2) Choledocholithiasis: (3) Elevated lipase: (4) Abnormal gait: (5) Recurrent falls: (6) Atrial flutter: (7) Anticoagulant long-term use: (8) GERD (gastroesophageal reflux disease): (9) Anxiety: (10) CKD (chronic kidney disease) stage 3, GFR 30-59 ml/min: (11) BPH (benign prostatic hyperplasia): (12) Hearing difficulty: (13) Memory impairment: (14) Mild obstructive sleep apnea: History of Present Illness Primary Care Provider: DESI Mir 89 yo M with hx dementia, gait abnormalities, DJD,GERd, c-spine stenosis, BPH, CKD3, anxiety,HLD, ELIANA, OA in ER for 4 days of dizziness. He states nothing changed in his diet or pattern to cause it to happen. no associated chest pain or shortness of breath. it impaired his ability to walk and take care of himself more than usual. he lives at home with his , but all 3 of his children [place] with them and each of their own 10 acre section. He states he feels much better now having received IVfluids. He hadn't been able to drink or eat much in the past few days due to the nausea associated with the dizziness. NO episodes of vomiting, does occasionally have watery diarrhea but that is a chronic problem for him. no fevers, chills. Allergies Allergy/AdvReac Type Severity Reaction Status Date / Time vancomycin Allergy Intermediate LOWER Verified 05/29/21 21:00 EXTREMITY SWELLING, FEVER Sulfa (Sulfonamide Allergy Mild Rash Verified 05/29/21 21:00 Antibiotics) gabapentin AdvReac Mild drowsy,conf Verified 05/29/21 21:00 used adhesive AdvReac peña tears Verified 05/29/21 21:00 Home Medications Medication Instructions Recorded Confirmed Type cranberry 500 mg capsule 1,000 mg PO QAM 05/31/19 05/29/21 History citalopram 40 mg tablet 40 mg PO QAM #90 tab 08/26/20 05/29/21 Rx azelastine 205.5 mcg (0.15 %) 1 spray INTRANASAL BID #30 ml 01/07/21 05/29/21 Rx nasal spray lidocaine 5 % topical patch 1 patch TRANSDERMAL QAM PRN ea 01/21/21 05/29/21 History lisinopril 10 mg tablet 10 mg PO DAILY #30 tab 03/03/21 05/29/21 Rx bumetanide 1 mg tablet 1 mg PO DAILY 04/08/21 05/29/21 History hydralazine 25 mg tablet 25 mg PO TID 04/08/21 05/29/21 History donepezil 23 mg tablet 23 mg PO HS 04/12/21 05/29/21 History metoprolol succinate 25 mg 25 mg PO DAILY 04/18/21 05/29/21 History tablet,extended release 24 hr Saccharomyces boulardii 250 mg 250 mg PO BID #10 cap 04/20/21 05/29/21 Rx capsule (Florastor) acetaminophen 500 mg capsule 1,000 mg PO TID PRN #0 cap 04/20/21 05/29/21 Rx apixaban 5 mg tablet (Eliquis) 5 mg PO BID #60 tab 04/20/21 05/29/21 Rx colestipol 1 gram tablet (Colestid) 1 g PO QID PRN #90 tab 04/20/21 05/29/21 Rx famotidine 20 mg tablet 20 mg PO BID #180 tab 05/13/21 05/29/21 Rx dicyclomine 10 mg capsule 10 mg PO DAILY #90 cap 05/28/21 05/29/21 Rx Otc Potassium 1 tab PO DAILY 05/29/21 History Past Med/Surg History Medical History Abdominal pain, acute, left lower quadrant VIMAL (acute kidney injury) Anxiety Atrial flutter DX OCT 2020> ELIQUIS/METOPROLOL 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 BPH (benign prostatic hyperplasia) Cervical facet joint syndrome Cervical radicular pain Cervical spinal stenosis Left C7 and 8 paresthesias Cervicogenic headache CKD (chronic kidney disease) stage 3, GFR 30-59 ml/min follows PCP Diverticulitis Dyslipidemia GERD (gastroesophageal reflux disease) CONTROLLED Hearing difficulty History of kidney stones Hypertension Impaired fasting glucose Hgb A1C 6.8 on 04/11/20 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 Myofascial pain Nocturnal hypoxemia Occipital neuralgia of left side Osteoarthritis Pancreatitis Surgical History H/O colonoscopy (06/2013) History of cystoscopy History of difficult intubation CHOLECYSTECTOMY= 01/11/14= GLIDESCOPE #4 (2/2 DECREASED CERVICAL ROM) BUT HAD GRADE VIEW 1, MAC 4 WITH ANKLE SURGERY 11/09/14 PER [facility] RECORDS History of esophagogastroduodenoscopy (EGD) (09/2019) History of shoulder surgery Rt shoulder - 09/22/18 [facility] History of total knee replacement B/L WITH REVISIONS; LEFT TKA REVISION= 05/13/17= SAB X 2 ATTEMPTS + PNB AT [facility] Hx of cervical spine surgery ROM LIMITED FROM SIDE TO SIDE Hx of total ankle replacement RIGHT S/P cholecystectomy S/P ERCP 04/20/21 Dr. Pablo Garibay- 2 stones removed, 2 stents placed Squamous cell carcinoma of back resolved Family History Son Family history of diabetes mellitus Other No family history of adverse response to anesthesia No pertinent family history Denies family history of Ovarian cancer Prostate cancer Myocardial infarction Breast cancer Colorectal cancer Social History Smoking Status: Never smoker Second Hand Exposure: No; Hx Alcohol Use: No Hx Substance Use: No Preferred Language: Qatari Communication Ability: Effective Visual Impairment: No Limitations Investigator Cash Shortage Required: No Beliefs That Will Affect Care: None marital status: Current Living Situation: Spouse Current Living Situation Comment: Lives with , caregivers current occupational status: retired 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 Review of Systems Review of Systems: All systems reviewed & are unremarkable except as noted in Subjective Physical Exam Physical Exam: Constitutional: pleasant elderly male in no apparent distress, sitting comfortably in bed. Eyes: EOMI, pupils equal and reactive bilaterally, no scleral icterus Cardiac: RRR, no murmurs, gallops or rubs. Normal S1, S2 Pulm: CTA BL, no wheezes, rhonchi, crackles or rubs, moving air well throughout both lungs Abd: soft, nontender, nondistended, normal bowel sounds, no rebound or guarding Extremities: 2+ peripheral pulses, no edema Neuro: no focal deficits, moving all 4 limbs, A&Ox3 Results & Data Results & Data ([facility]) Vital Signs (Past 12 Hours) Vital Signs Temp Pulse Pulse Resp BP BP Pulse Ox 05/29/21 21:14 71 20 124/70 97 05/29/21 19:32 20 98 05/29/21 19:30 64 20 132/60 98 05/29/21 18:24 36.8 C 74 20 112/61 95 Diagnostic Findings Laboratory Results WBC 3.70 K/uL (4.8-10.8) L 05/29/21 19:43 RBC 3.85 M/uL (4.7-6.1) L 05/29/21 19:43 Hgb 12.3 g/dL (14.0-18.0) L 05/29/21 19:43 Hct 36.9 % (42-52) L 05/29/21 19:43 MCV 95.8 fL (80-100) 05/29/21 19:43 MCH 31.9 pg (25-34) 05/29/21 19:43 MCHC 33.3 g/dL (32-36) 05/29/21 19:43 RDW Std Deviation 48.8 fL (36.4-46.3) H 05/29/21 19:43 RDW Coeff of [place]illy 14.0 % (11.5-14.5) 05/29/21 19:43 Plt Count 211 K/uL (130-400) 05/29/21 19:43 MPV 9.2 fL (7.4-10.4) 05/29/21 19:43 Immature Gran % (Auto) 0.0 % 05/29/21 19:43 Neut % (Auto) 51.3 % 05/29/21 19:43 Lymph % (Auto) 33.2 % 05/29/21 19:43 Bent % (Auto) 13.8 % 05/29/21 19:43 Eos % (Auto) 1.4 % 05/29/21 19:43 Baso % (Auto) 0.3 % 05/29/21 19:43 Neut # (Auto) 1.90 K/uL (1.4-6.5) 05/29/21 19:43 Lymph # (Auto) 1.23 K/uL (1.2-3.4) 05/29/21 19:43 Bent # (Auto) 0.51 K/uL (0.11-0.59) 05/29/21 19:43 Eos # (Auto) 0.05 K/uL (0-0.5) 05/29/21 19:43 Baso # (Auto) 0.01 K/uL (0-0.2) 05/29/21 19:43 Immature Gran # (Auto) 0.00 K/uL (0.00-0.02) 05/29/21 19:43 Sodium 138 mmol/L (136-145) 05/29/21 19:43 Potassium 4.9 mmol/L (3.5-5.1) 05/29/21 19:43 Chloride 106 mmol/L (98-107) 05/29/21 19:43 Carbon Dioxide 30 mmol/L (21-32) 05/29/21 19:43 Anion Gap 2.0 (3-11) L 05/29/21 19:43 BUN 23 mg/dl (7-18) H 05/29/21 19:43 Creatinine 1.57 mg/dl (0.6-1.4) H 05/29/21 19:43 Est Cr Clr Drug Dosing 32.9 ml/min 05/29/21 19:43 Est GFR ( Amer) 44.6 ml/min 05/29/21 19:43 Est GFR (Non-Af Amer) 38.5 ml/min 05/29/21 19:43 BUN/Creatinine Ratio 14.7 (10-20) 05/29/21 19:43 Glucose 107 mg/dl (70-99) H 05/29/21 19:43 Calcium 8.7 mg/dl (8.5-10.1) 05/29/21 19:43 Phosphorus 5.1 mg/dl (2.5-4.9) H 05/29/21 19:43 Magnesium 2.2 mg/dl (1.8-2.4) 05/29/21 19:43 Total Bilirubin 0.3 mg/dl (0.2-1) 05/29/21 19:43 Direct Bilirubin < 0.1 mg/dl (0-0.2) 05/29/21 19:43 AST 19 U/L (15-37) 05/29/21 19:43 ALT 21 U/L (12-78) 05/29/21 19:43 Alkaline Phosphatase 67 U/L (45-117) 05/29/21 19:43 Troponin I < 0.015 ng/ml (0-0.045) 05/29/21 19:43 Total Protein 6.4 gm/dl (6.4-8.2) 05/29/21 19:43 Albumin 3.3 gm/dl (3.4-5.0) L 05/29/21 19:43 Globulin 3.1 gm/dl (2.5-4.0) 05/29/21 19:43 Albumin/Globulin Ratio 1.1 (0.9-2) 05/29/21 19:43 Lipase 658 U/L (73-393) H 05/29/21 19:43 TSH 0.786 uIu/ml (0.300-4.500) 05/29/21 19:43 Urine Color Dark Yellow 05/29/21 19:00 Urine Appearance Clear (Clear) 05/29/21 19:00 Urine pH 5.0 (4.5-7.5) 05/29/21 19:00 Ur Specific [place] 1.023 (1.000-1.030) 05/29/21 19:00 Urine Protein Negative (Negative) 05/29/21 19:00 Urine Glucose (UA) Negative (Negative) 05/29/21 19:00 Urine Ketones Negative (Negative) 05/29/21 19:00 Urine Blood Negative (Negative) 05/29/21 19:00 Urine Nitrite Negative (Negative) 05/29/21 19:00 Urine Bilirubin Negative (Negative) 05/29/21 19:00 Urine Urobilinogen Negative (Negative) 05/29/21 19:00 Ur Leukocyte Esterase Negative (Negative) 05/29/21 19:00 COVID-19 Eval Order Covid19 at [facility] 05/29/21 20:08 SARS-CoV-2 (PCR) NEGATIVE (Negative) 05/29/21 20:08 Impressions Chest X-Ray 05/29/21 19:32 XR chest 1V portable HISTORY: 89 years-old Male Chest Pain . Acute atypical chest pain COMPARISON: Chest radiograph 04/18/2021 TECHNIQUE: Portable AP view of the chest FINDINGS: Cardiac silhouette is upper limits of normal in size. Chronic right hemidiaphragmatic elevation. No pneumothorax, pleural effusion, airspace consolidation or overt pulmonary edema. Degenerative changes of the left shoulder and spine. Reverse right shoulder total joint arthroplasty. IMPRESSION: No acute process. ACT 112: Negative or not required by law. The above report was generated using voice recognition software. It may contain grammatical, syntax or spelling errors. Electronically signed by: Brayden Gonsalez M.D. 05/29/2021 8:29 PM Supervising Physician Co-Signing Physician Notes Attending addendum: I have physically seen this patient, have supervised the medical residents activities, and agree with the H&P unless as otherwise noted. 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 Gently rehydrate Repeat laboratories in a.m. GERD- Continue famotidine Obstructive sleep apnea- CPAP at bedtime Remaining orders and notations as noted Resident Activity Tracking Resident Involvement: Resident Care Provided Care Provided: Adult Hospital Medicine (1) BPH (benign prostatic hyperplasia) Lower urinary tract symptom presence: symptoms absent Qualified Code(s): N40.0 - Benign prostatic hyperplasia without lower urinary tract symptoms (2) Atrial flutter Atrial flutter type: typical Qualified Code(s): I48.3 - Typical atrial flutter (3) GERD (gastroesophageal reflux disease) Esophagitis presence: esophagitis presence not specified Qualified Code(s): K21.9 - Gastro-esophageal reflux disease without esophagitis
[2021-05-30] MEDS ORDERED: LIDOCAINE 5% 1 PATCH TD PRN (02:06)
[2021-05-30] MEDS ORDERED: COLESTIPOL HCL 1 GM TAB PO PRN (02:06)
[2021-05-30] MEDS ORDERED: ACETAMINOPHEN 500 MG TAB PO PRN (02:24)
[2021-05-30] MEDS ORDERED: APIXABAN 5 MG TABLET PO SCH (02:30)
--- NOTE | 2021-05-30 07:17 | CT Scan Report ---
HEAD CT NONCONTRAST CT DOSE: HISTORY: headache, dizziness TECHNIQUE: Multiaxial CT images of the head were performed without the use of intravenous contrast. A utomated exposure control was utilized for this study. A dose lowering technique was utilized adheri ng to the principles of ALARA. Comparison: Head CT 10/22/2020. Findings: The paranasal sinuses and mastoid air cells are clear. The calvarium and skull base are int act. There is no mass, hematoma, midline shift, acute infarct. White matter hypodensity is nonspecifi c but suggestive of microvascular ischemic change. The ventricles and sulci demonstrate mild age-rela larry involutional changes. Impression: No acute intracranial abnormality. ACT 112: Negative or not required by law. Electronically signed by: Tim Quezada M.D. 05/30/2021 7:16 AM
--- NOTE | 2021-05-30 07:28 | CT Scan Report ---
CT angio neck with con CLINICAL HISTORY: headache, dizziness COMPARISON STUDY: September 19, 2019 TECHNIQUE: CT angiography was performed from the aortic arch to the skull base. MIP imaging was perfo rmed. The patient was scanned in a dynamic helical fashion during intravenous administration of 120 c c of Optiray. A dose lowering technique was utilized adhering to the principles of ALARA. CT DOSE: 1042.03 mGy.cm Technique: CT angiogram of the carotid and vertebral arteries was obtained using intravenous contrast and 3-D reconstruction. NASCET criteria was utilized. Findings: Origin of the right and left common carotid artery is poorly seen due to beam hardening and mild marianna on artifact. Bilateral carotid arteries are extremely tortuous. Calcified plaques are seen within the right and le ft carotid bulbs. The right carotid revealed no evidence of aneurysm and no evidence of dissection. There is no evidenc e of hemodynamic significant stenosis. The left carotid revealed no evidence of hemodynamic significant stenosis. There is no evidence of an eurysm. Partial calcified plaques is again seen at the proximal aspect of left internal carotid arter y with new small intimal flap which could represent developing dissection (6/189). There is short ret ropharyngeal course of the midportion of the left internal carotid artery. Right vertebral artery is extremely tortuous and show no evidence of hemodynamically significant sten osis. Right predominant vertebral circulation is seen. 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 Small short distal segme nt of reconstitution flow is seen within V4 segment of the left vertebral artery. Findings are stable since prior. There is no evidence of vertebral dissection. Redemonstration of severe degenerative changes of the spine. Screw is seen within odontoid process. IMPRESSION: 1. Questionable small intimal flap at the proximal aspect of the left internal carotid artery, appea r more conspicuous than on prior study in 2019 and might represent developing dissection, however acu ity is unknown. Report will be sent to emergency Department. 2. 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 ACT 112: Negative or not required by law. The above report was generated using voice recognition software. It may contain grammatical, syntax o r spelling errors. Electronically signed by: Gale Hermosillo DO 05/30/2021 7:26 AM
--- NOTE | 2021-05-30 07:39 | CT Scan Report ---
CT angio head w con CLINICAL HISTORY: headache, dizziness TECHNIQUE: CT angiography of the head was performed in a dynamic helical fashion during intravenous a dministration of 120 cc of Optiray. MIP imaging was performed. A dose lowering technique was utilized adhering to the principles of ALARA. CT DOSE: COMPARISON STUDY: June 28, 2008 FINDINGS: Mild atherosclerotic involvement is seen within supraclinoid aspect of the right and left i nternal carotid arteries. Approximately 50% stenosis is seen within distal aspect of the right ICA be fore origin of the anterior and posterior communicating arteries. Comparison with prior is difficult due to 5 mm slice thickness on 2007 exam. Right and left middle cerebral arteries, anterior cerebral arteries and anterior communicating arteries are normally opacified without significant stenosis or o cclusion. No aneurysmal dilatation seen. Basilar artery is normally opacified. Right and left posterior cerebral arteries shows no evidence of significant stenosis or occlusion. Hypoplastic bilateral posterior communicating arteries likely rep resenting developmental variant. IMPRESSION: 1. Mild atherosclerotic involvement within distal internal carotid arteries with approximately 50% s tenosis within distal aspect of the right ICA. 2. No significant stenosis or occlusion within intracranial arteries are seen. ACT 112: Negative or not required by law. The above report was generated using voice recognition software. It may contain grammatical, syntax o r spelling errors. Electronically signed by: Gale Hermosillo DO 05/30/2021 7:37 AM
[2021-05-30] MEDS: CITALOPRAM 40 MG TAB PO SCH (08:49)
[2021-05-30] MEDS: DICYCLOMINE HCL 10 MG CAP PO SCH (08:49)
[2021-05-30] MEDS: lisinopril 10 MG TAB PO SCH (08:50)
[2021-05-30] MEDS: hydrALAZINE HCL 25 MG TAB PO SCH ×3 (08:50→20:06)
[2021-05-30] MEDS: METOPROLOL SUCC 25MG EXT REL TAB PO SCH (08:50)
[2021-05-30] MEDS: SACCHAROMYCES BOULARDII 250 MG CAP PO SCH ×2 (08:51→20:06)
[2021-05-30] MEDS ORDERED: FAMOTIDINE 20 MG TAB PO SCH (09:00)
[2021-05-30] MEDS ORDERED: APIXABAN 2.5 MG TAB PO SCH (09:00)
[2021-05-30] MEDS ORDERED: BUMETANIDE 1 MG TAB PO SCH (09:00)
--- NOTE | 2021-05-30 09:20 | Neurology Consultation ---
Date of Consultation May 30, 2021 Assessment & Plan (1) Dizziness: (2) Dementia: (3) Cervical spinal stenosis: (4) Frequent headaches: (5) Gait abnormality: (6) Pain and numbness of left upper extremity: (7) Occlusion of left vertebral artery: This patient has multiple neurologic issues. He has an underlying dementia, likely vascular, which is mild and fairly stable. He is still functioning fairly well. MRI from 1 year ago shows a moderate amount of small vessel old ischemic change. He has some moderate atrophy as well consistent with his age. The patient has "dizziness". This is a combination of vertiginous feelings and some lightheadedness when he sits up or stands. It lasts for a few seconds and then resolves. This is likely a combination of inner ear dysfunction (benign positional vertigo) with some vertebral basilar insufficiency ( has an occlusion of the left vertebral artery which is likely old ). The patient has severe cervical spinal stenosis at multiple levels, from disc and bone. There seems to be cord impingement but no cord signal change. 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 He does not have incontinence of urine either. He has frequent headaches emanating from the left occipital head region. This is likely mechanical from his cervical spinal stenosis. His gait disturbance is likely a combination of a sensory ataxia from his peripheral neuropathy as well as the cervical spinal stenosis and vascular changes in his brain. The patient has some numbness in the left upper extremity which is likely radicular in nature from his neck. Recommendations: 1. MRI of the cervical spine to compare to 1.5 years ago. Do this with and without contrast since he had previous surgery. 2. consider MRI of the brain to compare to previous MRI 1 year ago. However, I do not believe he had a stroke and it will likely not change treatment. 3. because of his vascular changes, consider adding 81 milligram aspirin tablet to the Eliquis. Anticoagulation alone will not stop small vessel ischemic disease. 4. physical and occupational therapy. 5. given the patient's advanced age and multiple medical problems, I am not certain he would be a cervical spine surgical candidate, but it would depend on the degree of spinal stenosis and cord compression. 6. I will not make any new medication treatment recommendations from a neurologic standpoint. I would like, however, to follow him as an outpatient and consider additional medication then depending on his clinical course. 7. Defer abdominal pain issues to hospitalists and PCP Overall, I spent a total of 110 minutes with this case including review of records, review of CT and MRI films ( with Radiology also), direct evaluation the patient at bedside, and discussion of the case with the patient at bedside, RN at bedside, and , including differential diagnosis and treatment options. History of Present Illness Reason for Consultation: Patient is an 89-year-old, was asked to see the request of Dr. Phan, for neurologic consultation regarding vertigo, headache, and occluded left vertebral artery. Requesting Physician: Dr. Phan Attending Physician: Vijaya Cheatham MD History of Present Illness this patient has a history of atrial fibrillation on Eliquis, chronic kidney disease, gastroesophageal reflux disease, hypertension, and depression. Sometime, in his 70s, he fell and fractured his neck. He had to have a procedure to fuse C1 and C2 with a screw. He has had no other neck surgery. He has had chronic neck pain ever since and has significant spinal stenosis from disc and bone from C2-C3 through C6-C7. He had MRI films in October of 2019 and I reviewed these films including with Dr. Gonsalez. I believe there is significant spinal stenosis at multiple levels from disc in bone with cord impingement but no cord signal change. Recently, the patient has had abdominal pain for months intermittently with some nausea vomiting and diarrhea. He believes that his walking has been worse over the last 6-12 months and recently he has fallen several times because he loses his balance. He has had numbness radiating down from his neck down the left arm to the 5th finger 4 months. This does not occur on the left. He feels the left arm is a little weaker than the right and the left leg is a little weaker than the right. He has some tremor of a mild nature recently left greater than right side also. Patient has been having headaches starting in the left posterior cervical spine radiating into the left occiput and side of the. These are a dull aching or burning pain and occur on an most days. Patient has been getting dizzy episodes intermittently for months. He describes the sensation as a and a bit of lightheadedness both at the same lasting several seconds mostly when he changes position sitting or standing. He does not get any sensations turning over in. 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 He has tinnitus in his right ear for many months but does not ear pain. The patient is off Dr. Workman in April of 2020 for the lightheadedness, gait disturbance, and some left occipital neuralgic pain. He was starting to have memory dysfunction at that time as well. An MRI of the brain in March of 2020 showed moderate atrophy and moderate hold scattered nonspecific small vessel ischemic changes. He was lost to follow-up neurologically. Patient came to the emergency room May 29 because of increasing "dizziness", nausea, and headaches. At 18:24 temperature was 36.8, pulse 74 regular, respiratory rate 20, blood pressure 112/61, and O2 saturation 95 percent. In the emergency room he was described as tired and "mildly confused" but had good orientation nothing focal on exam. CT scan of the head showed some old white matter changes but no acute findings. CT angiography of the head and neck were remarkable for approximately 50 percent stenosis of the distal right internal carotid artery a possible small area of dissection in the proximal left internal carotid artery and minimal flow in the left vertebral artery. I reviewed these films with Dr. Gonsalez and it seems clear that the left vertebral flow was quite normal in 2009. currently he has diminished flow prior to the artery entering into the C7 bone and some restored flow distally but this is collateral from the PICA. CBC showed white count of 3.7 and a mild anemia. BUN and creatinine were elevated at 23 and 1.57. Lipase was 658 and TSH was normal. Urinalysis was unremarkable. This morning, he is afebrile and blood pressure is 112/68. His dizziness and headache or little improved compared to yesterday and he is not nauseated today although he has some left abdominal pain. Allergies Allergy/AdvReac Type Severity Reaction Status Date / Time vancomycin Allergy Intermediate LOWER Verified 05/29/21 21:00 EXTREMITY SWELLING, FEVER Sulfa (Sulfonamide Allergy Mild Rash Verified 05/29/21 21:00 Antibiotics) gabapentin AdvReac Mild drowsy,conf Verified 05/29/21 21:00 used adhesive AdvReac peña tears Verified 05/29/21 21:00 Home Medications Medication Instructions Recorded Confirmed Type cranberry 500 mg capsule 1,000 mg PO QAM 05/31/19 05/29/21 History citalopram 40 mg tablet 40 mg PO QAM #90 tab 08/26/20 05/29/21 Rx azelastine 205.5 mcg (0.15 %) 1 spray INTRANASAL BID #30 ml 01/07/21 05/29/21 Rx nasal spray lidocaine 5 % topical patch 1 patch TRANSDERMAL QAM PRN ea 01/21/21 05/29/21 History lisinopril 10 mg tablet 10 mg PO DAILY #30 tab 03/03/21 05/29/21 Rx bumetanide 1 mg tablet 1 mg PO DAILY 04/08/21 05/29/21 History hydralazine 25 mg tablet 25 mg PO TID 04/08/21 05/29/21 History donepezil 23 mg tablet 23 mg PO HS 04/12/21 05/29/21 History metoprolol succinate 25 mg 25 mg PO DAILY 04/18/21 05/29/21 History tablet,extended release 24 hr Saccharomyces boulardii 250 mg 250 mg PO BID #10 cap 04/20/21 05/29/21 Rx capsule (Florastor) acetaminophen 500 mg capsule 1,000 mg PO TID PRN #0 cap 04/20/21 05/29/21 Rx apixaban 5 mg tablet (Eliquis) 5 mg PO BID #60 tab 04/20/21 05/29/21 Rx colestipol 1 gram tablet (Colestid) 1 g PO QID PRN #90 tab 04/20/21 05/29/21 Rx famotidine 20 mg tablet 20 mg PO BID #180 tab 05/13/21 05/29/21 Rx dicyclomine 10 mg capsule 10 mg PO DAILY #90 cap 05/28/21 05/29/21 Rx Otc Potassium 1 tab PO DAILY 05/29/21 History Patient History Medical History Abdominal pain, acute, left lower quadrant VIMAL (acute kidney injury) Anxiety Atrial flutter DX OCT 2020> ELIQUIS/METOPROLOL 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 BPH (benign prostatic hyperplasia) Cervical facet joint syndrome Cervical radicular pain Cervical spinal stenosis Left C7 and 8 paresthesias Cervicogenic headache CKD (chronic kidney disease) stage 3, GFR 30-59 ml/min follows PCP Diverticulitis Dyslipidemia GERD (gastroesophageal reflux disease) CONTROLLED Hearing difficulty History of kidney stones Hypertension Impaired fasting glucose Hgb A1C 6.8 on 04/11/20 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 Myofascial pain Nocturnal hypoxemia Occipital neuralgia of left side Osteoarthritis Pancreatitis Surgical History H/O colonoscopy (06/2013) History of cystoscopy History of difficult intubation CHOLECYSTECTOMY= 01/11/14= GLIDESCOPE #4 (2/2 DECREASED CERVICAL ROM) BUT HAD GRADE VIEW 1, MAC 4 WITH ANKLE SURGERY 11/09/14 PER [facility] RECORDS History of esophagogastroduodenoscopy (EGD) (09/2019) History of shoulder surgery Rt shoulder - 09/22/18 [facility] History of total knee replacement B/L WITH REVISIONS; LEFT TKA REVISION= 05/13/17= SAB X 2 ATTEMPTS + PNB AT [facility] Hx of cervical spine surgery ROM LIMITED FROM SIDE TO SIDE Hx of total ankle replacement RIGHT S/P cholecystectomy S/P ERCP 04/20/21 Dr. Pablo Garibay- 2 stones removed, 2 stents placed Squamous cell carcinoma of back resolved Family History Son Family history of diabetes mellitus Other No family history of adverse response to anesthesia No pertinent family history Denies family history of Ovarian cancer Prostate cancer Myocardial infarction Breast cancer Colorectal cancer Social History Smoking Status: Never smoker Second Hand Exposure: No; Hx Alcohol Use: No Hx Substance Use: No Preferred Language: Estonian Communication Ability: Effective Visual Impairment: No Limitations Gleason Operator Required: No Beliefs That Will Affect Care: None marital status: Current Living Situation: Spouse Current Living Situation Comment: Lives with , caregivers current occupational status: retired 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 Review of Systems Constitutional: no fever, no fatigue and no weakness Eyes: no diplopia, no eye pain and no worsening vision Ear, Nose, Mouth, Throat: + tinnitus, + hearing loss and + dizziness; no ear pain, no hoarseness and no dysphagia Respiratory: no cough and no dyspnea Cardiovascular: no chest pain, no palpitations and no lightheadedness Gastrointestinal: + abdominal pain and + nausea; no vomiting Musculoskeletal: + back pain and + neck pain; no radicular pain, no joint pain and no myalgia Integumentary: no rash and no lesions Neurologic: + gait abnormality, + numbness, + headache(s) and + memory loss; no localized weakness, no generalized weakness, no tingling, no tremor(s), no abnormal movements, no abnormal speech and no confusion Psychiatric: no depression, no irritability, no anxiety, no difficulty concentrating, no confusion and no hallucinations Endocrine: no fatigue and no flushing Hematologic / Lymphatic: no easy bleeding and no easy bruising Allergy / Immunological: no urticaria and no problem reported Exam (Neuro) Physical Exam: The patient is right-handed. The patient is awake, alert, and attentive. Speech is normal without any aphasia or dysarthria. The patient can name objects, repeat phrases, and has normal spontaneous speech. Mentation and thought processes are intact, with orientation to person, place and time. Attention and concentration are normal. Mood and affect are normal and appropriate. General appearance and grooming are normal. Long-term memory was mildly impaired and short-term memory is moderately impaired. Pupils are 3 mm bilaterally and reactive to light. Extraocular eye muscles are intact without nystagmus. Visual acuity and visual soto seem normal grossly to confrontation. There are no deficits to sensation in the face in all 3 distributions of the fifth cranial nerve bilaterally. Corneal reflexes are positive bilaterally. Facial strength and symmetry was normal bilaterally. Hearing Is decreased bilaterally. Palate moves well without asymmetry. There is normal sternocleidomastoid and trapezius (shoulder shrug) strength bilaterally. Tongue is midline with good strength bilaterally. Neck has a decreased range of motion without discomfort. when he tilts his head back he automatically gets lightheaded and vertiginous. Tilting forward does not create symptoms. There are no cervical bruits bilaterally. There are no cranial or ocular bruits. Heart is without murmur. There is a regular rhythm and rate. Cervical Spine is tender to palpation along the left paraspinal muscles and cervical occipital junction. thoracic and lumbar spine are nontender to palpation. Gait is narrow based, with good arm swing. he is cautious particularly with turns. Stance is reasonable eyes open. With outstretched arms there is no drift. There are no resting tremors. He has no obvious postural tremor but does have mild left upper extremity action tremor. He has some essential tremor in his left lower extremity as well. There is no ataxia with finger to nose testing. There is good facility in the hands. No other abnormal involuntary movements are noted. Motor strength is 5/5 diffusely in the arms bilaterally including deltoids, biceps, triceps, brachioradialis, wrist flexors and extensors, cream dumper, and intrinsic hand muscles. Motor strength is 5/5 diffusely in the legs bilaterally including hip flexors, quadriceps, hamstrings, gastrocnemius, tibialis anterior, tibialis posterior, and Peroneii muscles. Toe extensors are normal and there is good bulk in the extensor digitorum brevis muscles bilaterally. The limbs have good tone without rigidity or spasticity. There is no atrophy noted in the muscles. Muscle bulk is normal, there is no tenderness to palpation, no myotonia to percussion, and no fasciculations seen. Sensory examination reveals a stocking decreased pinprick sense loss to the mid lower legs bilaterally. Reflexes are 1/4 in the biceps, triceps, and brachioradialis tendons bilaterally. Quadriceps and Achilles tendon reflexes are absent bilaterally. There is no clonus bilaterally. Toes are downgoing with plantar stimulation bilaterally. Peripheral pulses are present and of normal quality distally in all 4 limbs. There is no peripheral edema noted in the limbs. Results & Data ([facility]) Vital Signs (Past 12 Hours) Vital Signs Temp Pulse Pulse Pulse Resp BP BP 05/30/21 07:50 36.3 C L 70 15 112/68 05/30/21 02:09 36.5 C 63 20 145/75 H 05/30/21 01:30 70 20 127/68 05/29/21 23:30 72 20 108/72 05/29/21 21:14 71 20 124/70 Pulse Ox 05/30/21 07:50 97 05/30/21 02:09 97 05/30/21 01:30 95 05/29/21 23:30 93 05/29/21 21:14 97 PG Care Time/CCT Total # of Minutes Spent Total Time Spent with Patient: Total time spent is greater than 50% in coordination of care (as documented) at patient's floor/unit and/or counseling patient: Coding Level of Care Code 57966 Initial Inpt Care Lvl 3 Diagnoses Dementia F03.90 Dementia type: unspecified type Dementia behavioral disturbance: without behavioral disturbance Cervical spinal stenosis M48.02 Gait abnormality R26.9 Frequent headaches R51 Pain and numbness of left upper extremity M79.602; R20.0 Dizziness R42 Occlusion of left vertebral artery I65.02 Time Spent (min) 110 Comment Add modifiers as able (1) Dementia Dementia type: unspecified type Dementia behavioral disturbance: without behavioral disturbance Qualified Code(s): F03.90 - Unspecified dementia without behavioral disturbance
--- NOTE | 2021-05-30 10:27 | Hospitalist Progress Note ---
Date of Service May 30, 2021 Assessment & Plan (1) Acute pancreatitis: Plan: Primary issue appears abdominal; past choledocholithiasis with stents that he states still in place; likely biliary pancreatitis MRCP, lactated Ringer's, n.p.o. for now; GI consult Held Eliquis in case intervention needed; symptomatic Rx (2) Dizziness: Plan: Appears chronic issueneurology input appreciated; MRI C-spine; held off brain (3) CKD (chronic kidney disease) stage 3, GFR 30-59 ml/min: Plan: Appears stable; Bumex held during acute issue #1 (4) Dementia: Plan: Seems very mildfollow clinically; do not anticipate delirium Plan: Other issues such as hypertension, paroxysmal a flutter are nonacute and stable; mild anemia and leukopenia can be followed Admission and Anticipated Discharge Date Admission Date: May 29, 2021 Subjective Follow-up of presentation of abdominal pain; primary complaint I elicited was abdominal pain, just did not feel well; chronic dizziness Physical Exam Physical Exam: Constitutional and general: No acute distress, looks biologic age Head and face: No puffiness, atraumatic Eyes: No scleral icterus, extraocular movements normal Neck: Supple, no JVD Musculoskeletal: No acute joint swelling, no bony abnormalities Skin/dermatologic/integument: No rash, no purpura Hematologic and lymphatic: pallor +, no petechia Gastrointestinal/abdomen: Nondistended, epigastric tenderness Neurologic: Cranial nerves intact, nonfocal Psychiatry: Awake, alert, pleasant, communicative Cardiovascular: Heart rhythm regular, no rub, no murmur, no gallop Respiratory: Chest movements equal, no use of accessory muscles, no adventitious sounds Extremities: No edema, no cyanosis Results & Data Results & Data ([facility]) Vital Signs (Past 12 Hours) Vital Signs Temp Pulse Pulse Pulse Resp BP BP 05/30/21 07:50 36.3 C L 70 15 112/68 05/30/21 02:09 36.5 C 63 20 145/75 H 05/30/21 01:30 70 20 127/68 05/29/21 23:30 72 20 108/72 Pulse Ox 05/30/21 07:50 97 05/30/21 02:09 97 05/30/21 01:30 95 05/29/21 23:30 93 Laboratory Results Laboratory Results - last 24 hr 05/29/21 05/29/21 05/29/21 19:00 19:43 19:43 WBC 3.70 L RBC 3.85 L Hgb 12.3 L Hct 36.9 L MCV 95.8 MCH 31.9 MCHC 33.3 RDW Std Deviation 48.8 H RDW Coeff of Reilly 14.0 Plt Count 211 MPV 9.2 Immature Gran % (Auto) 0.0 Neut % (Auto) 51.3 Lymph % (Auto) 33.2 [place] % (Auto) 13.8 Eos % (Auto) 1.4 Baso % (Auto) 0.3 Neut # (Auto) 1.90 Lymph # (Auto) 1.23 [place] # (Auto) 0.51 Eos # (Auto) 0.05 Baso # (Auto) 0.01 Immature Gran # (Auto) 0.00 Sodium 138 Potassium 4.9 Chloride 106 Carbon Dioxide 30 Anion Gap 2.0 L BUN 23 H Creatinine 1.57 H Est Cr Clr Drug Dosing 32.9 Est GFR ( Amer) 44.6 Est GFR (Non-Af Amer) 38.5 BUN/Creatinine Ratio 14.7 Glucose 107 H Calcium 8.7 Phosphorus 5.1 H Magnesium 2.2 Total Bilirubin 0.3 Direct Bilirubin < 0.1 AST 19 ALT 21 Alkaline Phosphatase 67 Troponin I < 0.015 Total Protein 6.4 Albumin 3.3 L Globulin 3.1 Albumin/Globulin Ratio 1.1 Lipase 658 H TSH 0.786 Urine Color Dark Yellow Urine Appearance Clear Urine pH 5.0 Ur Specific [place] 1.023 Urine Protein Negative Urine Glucose (UA) Negative Urine Ketones Negative Urine Blood Negative Urine Nitrite Negative Urine Bilirubin Negative Urine Urobilinogen Negative Ur Leukocyte Esterase Negative COVID-19 Eval Order SARS-CoV-2 (PCR) 05/29/21 05/29/21 20:08 20:08 WBC RBC Hgb Hct MCV MCH MCHC RDW Std Deviation RDW Coeff of [place]illy Plt Count MPV Immature Gran % (Auto) Neut % (Auto) Lymph % (Auto) [place] % (Auto) Eos % (Auto) Baso % (Auto) Neut # (Auto) Lymph # (Auto) [place] # (Auto) Eos # (Auto) Baso # (Auto) Immature Gran # (Auto) Sodium Potassium Chloride Carbon Dioxide Anion Gap BUN Creatinine Est Cr Clr Drug Dosing Est GFR ( Amer) Est GFR (Non-Af Amer) BUN/Creatinine Ratio Glucose Calcium Phosphorus Magnesium Total Bilirubin Direct Bilirubin AST ALT Alkaline Phosphatase Troponin I Total Protein Albumin Globulin Albumin/Globulin Ratio Lipase TSH Urine Color Urine Appearance Urine pH Ur Specific [place] Urine Protein Urine Glucose (UA) Urine Ketones Urine Blood Urine Nitrite Urine Bilirubin Urine Urobilinogen Ur Leukocyte Esterase COVID-19 Eval Order Covid19 at [facility] SARS-CoV-2 (PCR) NEGATIVE PG Care Time/CCT Total # of Minutes Spent Total Time Spent with Patient: Total time spent is greater than 50% in coordination of care (as documented) at patient's floor/unit and/or counseling patient: Coding Level of Care Code 30966 Subseq Hosp Care Lvl 3 Diagnoses Acute pancreatitis K85.90 Dizziness R42 CKD (chronic kidney disease) stage 3, GFR 30-59 ml/min N18.3 Dementia F03.90 Dementia behavioral disturbance: without behavioral disturbance Dementia type: unspecified type (1) Dementia Dementia behavioral disturbance: without behavioral disturbance Dementia type: unspecified type Qualified Code(s): F03.90 - Unspecified dementia without behavioral disturbance
[2021-05-30] MEDS ORDERED: HYDROmorphone INJ 0.5 MG/0.5 ML SYR IV PRN (10:41)
--- NOTE | 2021-05-30 11:13 | Gastrointestinal Consultation ---
Date of Consultation May 30, 2021 Assessment & Plan (1) Elevated lipase: Pt with elevated lipase and chronic upper abd pain, slightly improved temporarily with ERCP on 04/20/21. He reports a 30# weight loss in the past 4 months which is concerning. The son mentioned a recent diverticulitis but I am unable to find records of tx for this in [facility] or [facility]. His increased pain yesterday, which is now resolved, along with the elevated lipase may represent pancreatitis. - CT abd without contrast (would prefer IV contrast but not using due to Cr 1.5). - He is on Eliquis - so would need to hold if ERCP is needed, but currently there is no clear indication for ERCP. (2) Upper abdominal pain: Supervising Physician Co-Signing Physician Notes I saw and evaluated the patient. He presents today for evaluation of abdominal discomfort and was found to have a mild elevation of his serum lipase level. Of note the patient did have an ERCP performed early April for choledocholithiasis. It appears that this was a somewhat complicated procedure as the patient did require placement of a pancreatic stent in addition to a biliary stent. The patient is due for a follow-up examination in the next few weeks. The patient notes that his pain is improved today, he denies having nausea or vomiting today. Physical examination No obvious distress No scleral icterus Minimal epigastric tenderness Impression: Patient with mild abdominal discomfort and elevation of his lipase suggestive of acute pancreatitis. His imaging study is still pending that we had ordered from earlier this afternoon. The patient's and his son notes that he was diagnosed with diverticulitis several weeks ago and is unclear if he got any therapy for this. Should the CT show evidence of diverticulitis we would then recommend antibiotic coverage. Presently it appears that his liver enzymes are within normal limits which is great news Recommendations Continue IV hydration May have clear liquids Await CT results History of Present Illness Reason for Consultation: "Probable biliary pancreatitis" Requesting Physician: Dr. Cheatham Attending Physician: Vijaya Cheatham MD History of Present Illness Mr. Serafin Desir is an 89 yr old male pt of DESI Brooks ([facility]). He carries a hx of GERD, ELIANA, CKD-3, BPH, A-flutter on Eliquis. He presented to the ED yesterday for dizziness. He has upper abdomen pain and amylase is elevated. He reports a slow onset of upper abdomen pain several months ago. He underwent ERCP with sweeping of stones, and placement of pancreatic and bile stents by Dr. Garibay on 04/20/21. He reports feeling, "a little better after - for a while," but wasn't able to give more specific details. He says this pain is always present, waxes and wains and is worse after eating. Denies any yellow eyes/skin. No nausea/vomiting. Denies any fevers. Tends toward constipation but denies current constipation. On arrival, lipase was [phone]->658 today. LFTs are normal. Pain is improved today compared to yesterday. He is on Eliquis for A fib/flutter. He is examined while he is resting in bed. He is awake, alert, oriented and hemodynamically stable. Allergies Allergy/AdvReac Type Severity Reaction Status Date / Time vancomycin Allergy Intermediate LOWER Verified 05/29/21 21:00 EXTREMITY SWELLING, FEVER Sulfa (Sulfonamide Allergy Mild Rash Verified 05/29/21 21:00 Antibiotics) gabapentin AdvReac Mild drowsy,conf Verified 05/29/21 21:00 used adhesive AdvReac peña tears Verified 05/29/21 21:00 Home Medications Medication Instructions Recorded Confirmed Type cranberry 500 mg capsule 1,000 mg PO QAM 05/31/19 05/29/21 History citalopram 40 mg tablet 40 mg PO QAM #90 tab 08/26/20 05/29/21 Rx azelastine 205.5 mcg (0.15 %) 1 spray INTRANASAL BID #30 ml 01/07/21 05/29/21 Rx nasal spray lidocaine 5 % topical patch 1 patch TRANSDERMAL QAM PRN ea 01/21/21 05/29/21 History lisinopril 10 mg tablet 10 mg PO DAILY #30 tab 03/03/21 05/29/21 Rx bumetanide 1 mg tablet 1 mg PO DAILY 04/08/21 05/29/21 History hydralazine 25 mg tablet 25 mg PO TID 04/08/21 05/29/21 History donepezil 23 mg tablet 23 mg PO HS 04/12/21 05/29/21 History metoprolol succinate 25 mg 25 mg PO DAILY 04/18/21 05/29/21 History tablet,extended release 24 hr Saccharomyces boulardii 250 mg 250 mg PO BID #10 cap 04/20/21 05/29/21 Rx capsule (Florastor) acetaminophen 500 mg capsule 1,000 mg PO TID PRN #0 cap 04/20/21 05/29/21 Rx apixaban 5 mg tablet (Eliquis) 5 mg PO BID #60 tab 04/20/21 05/29/21 Rx colestipol 1 gram tablet (Colestid) 1 g PO QID PRN #90 tab 04/20/21 05/29/21 Rx famotidine 20 mg tablet 20 mg PO BID #180 tab 05/13/21 05/29/21 Rx dicyclomine 10 mg capsule 10 mg PO DAILY #90 cap 05/28/21 05/29/21 Rx Otc Potassium 1 tab PO DAILY 05/29/21 History Patient History Medical History Abdominal pain, acute, left lower quadrant VIMAL (acute kidney injury) Anxiety Atrial flutter DX OCT 2020> ELIQUIS/METOPROLOL 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 BPH (benign prostatic hyperplasia) Cervical facet joint syndrome Cervical radicular pain Cervical spinal stenosis Left C7 and 8 paresthesias Cervicogenic headache CKD (chronic kidney disease) stage 3, GFR 30-59 ml/min follows PCP Diverticulitis Dyslipidemia GERD (gastroesophageal reflux disease) CONTROLLED Hearing difficulty History of kidney stones Hypertension Impaired fasting glucose Hgb A1C 6.8 on 04/11/20 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 Myofascial pain Nocturnal hypoxemia Occipital neuralgia of left side Osteoarthritis Pancreatitis Surgical History H/O colonoscopy (06/2013) History of cystoscopy History of difficult intubation CHOLECYSTECTOMY= 01/11/14= GLIDESCOPE #4 (2/2 DECREASED CERVICAL ROM) BUT HAD GRADE VIEW 1, MAC 4 WITH ANKLE SURGERY 11/09/14 PER [facility] RECORDS History of esophagogastroduodenoscopy (EGD) (09/2019) History of shoulder surgery Rt shoulder - 09/22/18 [facility] History of total knee replacement B/L WITH REVISIONS; LEFT TKA REVISION= 05/13/17= SAB X 2 ATTEMPTS + PNB AT [facility] Hx of cervical spine surgery ROM LIMITED FROM SIDE TO SIDE Hx of total ankle replacement RIGHT S/P cholecystectomy S/P ERCP 04/20/21 Dr. Pablo Garibay- 2 stones removed, 2 stents placed Squamous cell carcinoma of back resolved Family History Son Family history of diabetes mellitus Other No family history of adverse response to anesthesia No pertinent family history Denies family history of Ovarian cancer Prostate cancer Myocardial infarction Breast cancer Colorectal cancer Social History Smoking Status: Never smoker Second Hand Exposure: No; Hx Alcohol Use: No Hx Substance Use: No Preferred Language: Bel[place]an Communication Ability: Effective Visual Impairment: No Limitations Entry Level Paralegal Required: No Beliefs That Will Affect Care: None marital status: Current Living Situation: Spouse Current Living Situation Comment: Lives with , caregivers current occupational status: retired 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 Review of Systems Review of Systems: ROS: Gen: Denies weakness, fevers, + 30 lbs weight loss Eyes: No eye redness, or pain, no recent vision changes Resp: No SOB, no cough Cardio: No palpitations/irregular beats, no chest pain GI: See HPI, otherwise (-) : Denies pain on urination Skin: No jaundice, itching or new rashes Physical Exam Constitutional: WD/WN, vitals as above Eyes: PERRL, conjunctivae normal, anicteric sclerae ENMT: external ear and nose normal, oropharynx normal (poor dentition) Neck: trachea midline, no thyromegaly Respiratory: normal respiratory effort, lungs clear to auscultation Cardiovascular: RRR, no murmur, no edema Gastrointestinal (Abdomen): Inspection/Auscultation: abdomen normal to inspection; abdomen not distended mild/moderate tenderness across the entire upper abdomen, worse in the epigastric area Skin: no rashes, warm and dry Neurologic: PERRL, EOMI, accommodation nl, no face palsy, no dysarthria Psychiatric: A+Ox3, euthymic affect Results & Data ([facility]) Vital Signs (Past 12 Hours) Vital Signs Temp Pulse Pulse Pulse Resp BP BP 05/30/21 07:50 36.3 C L 70 15 112/68 05/30/21 02:09 36.5 C 63 20 145/75 H 05/30/21 01:30 70 20 127/68 05/29/21 23:30 72 20 108/72 Pulse Ox 05/30/21 07:50 97 05/30/21 02:09 97 05/30/21 01:30 95 05/29/21 23:30 93 Laboratory Results WBC 3.7, Hb 12.3, Hct 36, Plts 211, Na 138, K 4.9, Cl 106, CO2 30, BUN 23, Cr 1.57, glucose 107 See HPI for LFTs, lipase
[2021-05-30] MEDS: LACTATED RINGER'S 1,000 ML IV SCH (11:37)
[2021-05-30] MEDS: PANTOprazole 40 MG TAB PO SCH (11:53)
--- NOTE | 2021-05-30 13:26 | Electrocardiogram Report ---
Test Reason : Blood Pressure : / mmHG Vent. Rate : 063 BPM Atrial Rate : 063 BPM P-R Int : 138 ms QRS Dur : 132 ms QT Int : 448 ms P-R-T Axes : 050 -42 050 degrees QTc Int : 458 ms Sinus rhythm with occasional Premature ventricular complexes Left axis deviation Right bundle branch block Minimal voltage criteria for LVH, may be normal variant Abnormal ECG When compared with ECG of 14-APR-2021 23:43, Premature ventricular complexes are now Present Confirmed by Ger Farfan ([id number]) on 05/30/2021 1:25:37 PM Referred By: REFERRED SELF Confirmed By:Ger Farfan
--- NOTE | 2021-05-30 18:03 | CT Scan Report ---
CT SCAN OF THE ABDOMEN AND PELVIS WITHOUT CONTRAST CLINICAL HISTORY: attention pancreas COMPARISON STUDY: April 18, 2021. Also correlation is made with ERCP performed on April 20, 2021. TECHNIQUE: CT scan of the abdomen and pelvis was performed from the lung bases to the proximal femurs . Images are reviewed in the axial, sagittal, and coronal planes. IV contrast was not administered fo r this examination. A dose lowering technique was utilized adhering to the principles of ALARA. CT DOSE: 509.40 mGycm FINDINGS: Lower chest: Mild atelectasis at dependent portions of bilateral lower lobes is improved since prior. Liver: The unenhanced liver is normal in size, contour, and attenuation. There is no intrahepatic narinder iary ductal dilatation. Gallbladder: Is surgically absent. Interval placement of the stent to the common bile duct and proxim al aspect of the pancreas. Pancreatic duct stent is seen coiling within the duodenal lumen. Previousl y seen calculus within distal aspect of the common bile duct is no longer visualized. Spleen: Normal in size and attenuation. Pancreas: Normal appearance of the pancreatic parenchyma on this nonenhanced exam. Adrenal glands: Unremarkable. Kidneys: The unenhanced kidneys are normal in size without hydronephrosis. There is no contour deform ing renal mass lesion. No renal calculi are identified. Small vascular calculus is seen on the right. Bowel: Visualized loops of bowel are nondilated. Appendix is not well seen. Diverticulosis of descend ing colon seen without evidence of diverticulitis. Peritoneum: There is no intraperitoneal free air or abdominal ascites. Vasculature: The abdominal aorta is normal in course and caliber. Adenopathy: Multiple small retroperitoneal lymph nodes measuring less than 1 cm in short axis, nonpat hological by CT size criteria. No mesenteric lymphadenopathy seen. Skeletal structures: Osteopenia. Multilevel degenerative changes of the spine. IMPRESSION: 1. Previously seen calculus within common bile duct is no longer visualized. Interval placement of s tents within common bile duct and proximal aspect of the pancreatic duct. No ductal dilatation is see n. 2. The rest of findings as above. ACT 112: Negative or not required by law. The above report was generated using voice recognition software. It may contain grammatical, syntax o r spelling errors. Electronically signed by: Gale Hermosillo DO 05/30/2021 6:02 PM
[2021-05-30] MEDS ORDERED: GADOBUTROL 65ML VIAL IV ONE (18:23)
--- NOTE | 2021-05-30 20:42 | Magnetic Resonance Report ---
MRCP CLINICAL HISTORY: Pancreatitis. COMPARISON STUDY: Abdominal CT dated 05/30/2021. MRCP dated 04/16/2021. TECHNIQUE: Abdominal MRCP is performed utilizing various T2-weighted sequences in the axial and coron al planes. 3-D reformats are created and assessed. IV contrast was not administered for this examinat ion. The examination is compromised by motion artifact. A common bile duct stent is in place. FINDINGS: The gallbladder is surgically absent. Stents are present within the common bile duct and the pancreat ic duct. The common bile duct measures up to 6 mm in diameter. There is no evidence of choledocholith iasis, although this is not well assessed due to the presence of an indwelling stent. The pancreatic duct is normal in caliber. There is no significant intrahepatic biliary ductal dilatation. The unenhanced liver, spleen, adrenal glands, and pancreas are grossly normal. The kidneys demonstrat e cortical atrophy and are without hydronephrosis. Subcentimeter renal cysts are seen bilaterally. Th e abdominal aorta is normal in caliber. There is no bowel obstruction. No abdominal ascites is identi fied. A duodenal diverticulum is incidentally noted. There is no pleural effusion. The bony structure s are intact as visualized. IMPRESSION: 1. Status post cholecystectomy. 2. There are stents within the common bile duct and within the pancreatic duct which significantly d egrades the examination. 3. There is no significant intra- or extrahepatic biliary ductal dilatation. 4. There is no obvious evidence of choledocholithiasis on the provided images. Again, this is not we ll evaluated. Dictated: 05/30/2021 6:22 PM Transcribed: 05/30/2021 8:27 PM Natali [id number] [facility] Electronically signed by: Adan Vallecillo M.D. 05/30/2021 8:41 PM
--- NOTE | 2021-05-30 23:49 | Magnetic Resonance Report ---
MRI OF THE CERVICAL SPINE COMBO CLINICAL HISTORY: Ambulatory dysfunction. Neck pain. Left upper chest pain numbness. Headache. COMPARISON STUDY: CT of the cervical spine dated 10/22/2020. CT angiogram of the neck dated 05/29/2021. TECHNIQUE: MRI of the cervical spine is performed utilizing various T1 and T2-weighted sequences in t he axial and sagittal planes. Contrast-enhanced sequences were acquired following the IV administrati on of 7.5 cc of Gadavist. The examination is compromised by motion artifact. FINDINGS: Cervical spine: Marrow signal intensity is heterogeneous. Vertebral body height is maintained through out the cervical spine. Cortical lag screws are present in the body of C2 extending from the base of the vertebral body into the odontoid process. There is mild anterolisthesis at C2-C3. Minimal retroli sthesis is noted C6-C7. Alignment is otherwise maintained. There is straightening of the cervical candi dosis with reversal centered at C5. There is near complete bony fusion of C4, C5, and C6. The atlanto dens articulation is maintained noting productive degenerative change. The spinous processes appear i ntact. A hemangioma is noted in the body of T3. No destructive bony lesion is seen. Anterior osteophy akua are seen throughout. There is a chronic appearing compression deformity of T4. Intervertebral discs: As noted above, there is near complete bony fusion from C4 through C6. Disc lulu iccation and moderate to severe loss of height are seen at the remaining cervical levels. Spinal cord: The cervical spinal cord is normal in morphology and signal intensity. No abnormal postc ontrast enhancement is identified. C2-C3: A posterior disc osteophyte complex eccentric to the right effaces the ventral cord. Uncoverte bral and facet arthropathy contribute to severe bilateral neural foraminal stenosis, right greater th an left. C3-C4: A posterior disc osteophyte complex abuts the ventral cord. Uncovertebral and facet arthropath y cause severe left and moderate to severe right neural foraminal stenosis. C4-C5: A posterior disc osteophyte complex minimally effaces the ventral cord. Uncovertebral and face t arthropathy cause severe left and moderate right neural foraminal stenosis. C5-C6: A posterior disc osteophyte complex abuts the ventral cord. Uncovertebral and facet arthropath y cause severe bilateral neural foraminal stenosis. C6-C7: A posterior disc osteophyte complex minimally effaces the ventral cord. Uncovertebral and face t arthropathy contribute to severe bilateral neural foraminal stenosis. C7-T1: The central canal is clear. Bulky facet arthropathy causes severe left and moderate to severe right neural foraminal stenosis. Soft tissues: There is fatty atrophy of the paraspinous musculature. The prevertebral soft tissues ar e normal as visualized. Brain parenchyma: The visualized brain parenchyma at the skull base is within normal limits. IMPRESSION: 1. Advanced multilevel cervical spondylosis as above. See discussion for detailed level of analysis. 2. No acute osseous abnormality is identified. 3. Postoperative change is noted in the body of C2. 4. The cervical spinal cord is normal in morphology and signal intensity with no abnormal postcontras t enhancement identified. Dictated: 05/30/2021 10:02 PM Transcribed: 05/30/2021 11:44 PM Jennifer [id number] [facility] Electronically signed by: Adan Vallecillo M.D. 05/30/2021 11:48 PM
--- NOTE | 2021-05-31 00:49 | Billing Data ---
Date of Service May 31, 2021 Coding Level of Care Code 11963 Initial Inpt Care Lvl 3
[2021-05-31 07:43] LABS: Basophils # (auto) 0.01 K/uL (0-0.2); Basophils % (auto) 0.3 %; Eosinophils # (auto) 0.05 K/uL (0-0.5); Eosinophils % (auto) 1.7 %; Hematocrit (blood only) 37.5 % (42-52); Hemoglobin 12.4 g/dL (14.0-18.0); Immature Granulocytes # (auto) 0.01 K/uL (0.00-0.02); Immature Granulocytes % (auto) 0.3 %; Lymphocytes # (auto) 0.97 K/uL (1.2-3.4); Lymphocytes % (auto) 32.2 %; Mean Corpuscular Hemoglobin 31.5 pg (25-34); Mean Corpuscular Hgb Conc 33.1 g/dL (32-36); Mean Corpuscular Volume 95.2 fL (80-100); Monocytes # (auto) 0.34 K/uL (0.11-0.59); Monocytes % (auto) 11.3 %; Neutrophils # (auto) 1.63 K/uL (1.4-6.5); Neutrophils % (auto) 54.2 %; Platelet Count 188 K/uL (130-400); RDW Coefficient of Variation 13.7 % (11.5-14.5); RDW Standard Deviation 47.6 fL (36.4-46.3); Red Blood Count 3.94 M/uL (4.7-6.1); White Blood Count 3.01 K/uL (4.8-10.8)
[2021-05-31] MEDS: LACTATED RINGER'S 1,000 ML IV SCH (07:57)
[2021-05-31 08:02] LABS: Albumin Level 3.2 gm/dl (3.4-5.0); BUN Creatinine Ratio 11.8 (10-20); Calcium 8.9 mg/dl (8.5-10.1); Creatinine Clr Calc Pharmacy 39.5 ml/min; Est GFR (African American) 55.6 ml/min; Est GFR (Non-African American) 47.9 ml/min; Magnesium 2.3 mg/dl (1.8-2.4); Potassium 4.9 mmol/L (3.5-5.1)
[2021-05-31 08:05] LABS: Albumin Globulin Ratio 1.1 (0.9-2); Bilirubin,Total 0.5 mg/dl (0.2-1); Total Protein 6.2 gm/dl (6.4-8.2)
--- NOTE | 2021-05-31 08:45 | Hospitalist Progress Note ---
Date of Service May 31, 2021 Assessment & Plan (1) Acute pancreatitis: Plan: Appears low-grade acute pancreatitis; MRCP does not show choledocholithiasis Clear liquid diet; stop IV fluids; follow conservatively; do not anticipate need for invasive procedureresumed Eliquis; nothing to suggest diverticulitis on CT abdomen with the caveat non contrast but symptoms are midepigastrium (2) Dizziness: Plan: Chronic; C-spine MRI does not appear to have anything acute OT/PT; aspirin added per neurology recommendations (3) Atrial flutter: Plan: Paroxysmal, and follow clinically; clinically regular (4) GERD (gastroesophageal reflux disease): Plan: PPI (5) CKD (chronic kidney disease) stage 3, GFR 30-59 ml/min: Plan: Stable to betterfollow (6) Dementia: Admission and Anticipated Discharge Date Admission Date: May 30, 2021 Subjective Follow-up of presentation of abdominal pain, dizziness- doing well; no new complaints Physical Exam Physical Exam: Constitutional and general: No acute distress, looks biologic age Head and face: No puffiness, atraumatic Eyes: No scleral icterus, extraocular movements normal Neck: Supple, no JVD Musculoskeletal: No acute joint swelling, no bony abnormalities Skin/dermatologic/integument: No rash, no purpura Hematologic and lymphatic: pallor +, no petechia Gastrointestinal/abdomen: Nondistended, epigastric tenderness Neurologic: Cranial nerves intact, nonfocal Psychiatry: Awake, alert, pleasant, communicative Cardiovascular: Heart rhythm regular, no rub, no murmur, no gallop Respiratory: Chest movements equal, no use of accessory muscles, no adventitious sounds Extremities: No edema, no cyanosis Results & Data Results & Data ([facility]) Vital Signs (Past 12 Hours) Vital Signs Temp Pulse Resp BP Pulse Ox 05/31/21 07:22 36.5 C 62 16 137/61 95 05/30/21 23:21 36.5 C 64 18 105/58 L 96 Laboratory Results Laboratory Results - last 24 hr 05/31/21 05/31/21 07:18 07:18 WBC 3.01 L RBC 3.94 L Hgb 12.4 L Hct 37.5 L MCV 95.2 MCH 31.5 MCHC 33.1 RDW Std Deviation 47.6 H RDW Coeff of Reilly 13.7 Plt Count 188 MPV 9.0 Immature Gran % (Auto) 0.3 Neut % (Auto) 54.2 Lymph % (Auto) 32.2 Canyon % (Auto) 11.3 Eos % (Auto) 1.7 Baso % (Auto) 0.3 Neut # (Auto) 1.63 Lymph # (Auto) 0.97 L Canyon # (Auto) 0.34 Eos # (Auto) 0.05 Baso # (Auto) 0.01 Immature Gran # (Auto) 0.01 Sodium 137 Potassium 4.9 Chloride 105 Carbon Dioxide 29 Anion Gap 3.0 BUN 16 Creatinine 1.31 Est Cr Clr Drug Dosing 39.5 Est GFR ( Amer) 55.6 Est GFR (Non-Af Amer) 47.9 BUN/Creatinine Ratio 11.8 Glucose 90 Calcium 8.9 Magnesium 2.3 Total Bilirubin 0.5 AST 21 ALT 20 Alkaline Phosphatase 72 Total Protein 6.2 L Albumin 3.2 L Globulin 3.0 Albumin/Globulin Ratio 1.1 Lipase 584 H Diagnostic Findings Chest X-Ray 05/29/21 19:32 XR chest 1V portable HISTORY: 89 years-old Male Chest Pain . Acute atypical chest pain COMPARISON: Chest radiograph 04/18/2021 TECHNIQUE: Portable AP view of the chest FINDINGS: Cardiac silhouette is upper limits of normal in size. Chronic right hemidiaphragmatic elevation. No pneumothorax, pleural effusion, airspace consolidation or overt pulmonary edema. Degenerative changes of the left shoulder and spine. Reverse right shoulder total joint arthroplasty. IMPRESSION: No acute process. ACT 112: Negative or not required by law. The above report was generated using voice recognition software. It may contain grammatical, syntax or spelling errors. Electronically signed by: Brayden Gonsalez M.D. 05/29/2021 8:[address] 05/29/21 19:[address] DOSE: HISTORY: headache, dizziness TECHNIQUE: Multiaxial CT images of the head were performed without the use of intravenous contrast. Automated exposure control was utilized for this study. A dose lowering technique was utilized adhering to the principles of ALARA. Comparison: Head CT 10/22/2020. Findings: The paranasal sinuses and mastoid air cells are clear. The calvarium and skull base are intact. There is no mass, hematoma, midline shift, acute infarct. White matter hypodensity is nonspecific but suggestive of microvascular ischemic change. The ventricles and sulci demonstrate mild age-related involutional changes. Impression: No acute intracranial abnormality. ACT 112: Negative or not required by law. Electronically signed by: Tim Quezada M.D. 05/30/2021 7:16 AM Head CTA 05/29/21 19:36 CT angio head w con CLINICAL HISTORY: headache, dizziness TECHNIQUE: CT angiography of the head was performed in a dynamic helical fashion during intravenous administration of 120 cc of Optiray. MIP imaging was performed. A dose lowering technique was utilized adhering to the principles of ALARA. CT DOSE: COMPARISON STUDY: June 28, 2008 FINDINGS: Mild atherosclerotic involvement is seen within supraclinoid aspect of the right and left internal carotid arteries. Approximately 50% stenosis is seen within distal aspect of the right ICA before origin of the anterior and posterior communicating arteries. Comparison with prior is difficult due to 5 mm slice thickness on 2007 exam. Right and left middle cerebral arteries, anterior cerebral arteries and anterior communicating arteries are normally opacified without significant stenosis or occlusion. No aneurysmal dilatation seen. Basilar artery is normally opacified. Right and left posterior cerebral arteries shows no evidence of significant stenosis or occlusion. Hypoplastic bilateral posterior communicating arteries likely representing developmental variant. IMPRESSION: 1. Mild atherosclerotic involvement within distal internal carotid arteries with approximately 50% stenosis within distal aspect of the right ICA. 2. No significant stenosis or occlusion within intracranial arteries are seen. ACT 112: Negative or not required by law. The above report was generated using voice recognition software. It may contain grammatical, syntax or spelling errors. Electronically signed by: Gale Hermosillo DO 05/30/2021 7:37 AM Neck CTA 05/29/21 19:36 CT angio neck with con CLINICAL HISTORY: headache, dizziness COMPARISON STUDY: September 19, 2019 TECHNIQUE: CT angiography was performed from the aortic arch to the skull base. MIP imaging was performed. The patient was scanned in a dynamic helical fashion during intravenous administration of 120 cc of Optiray. A dose lowering technique was utilized adhering to the principles of ALARA. CT DOSE: 1042.03 mGy.cm Technique: CT angiogram of the carotid and vertebral arteries was obtained using intravenous contrast and 3-D reconstruction. NASCET criteria was utilized. Findings: Origin of the right and left common carotid artery is poorly seen due to beam hardening and mild motion artifact. Bilateral carotid arteries are extremely tortuous. Calcified plaques are seen within the right and left carotid bulbs. The right carotid revealed no evidence of aneurysm and no evidence of dissection. There is no evidence of hemodynamic significant stenosis. The left carotid revealed no evidence of hemodynamic significant stenosis. There is no evidence of aneurysm. Partial calcified plaques is again seen at the proximal aspect of left internal carotid artery with new small intimal flap which could represent developing dissection (6/189). There is short retropharyngeal course of the midportion of the left internal carotid artery. Right vertebral artery is extremely tortuous and show no evidence of hemodynamically significant stenosis. Right predominant vertebral circulation is seen. 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 Small short distal segment of reconstitution flow is seen within V4 segment of the left vertebral artery. Findings are stable since prior. There is no evidence of vertebral dissection. Redemonstration of severe degenerative changes of the spine. Screw is seen within odontoid process. IMPRESSION: 1. Questionable small intimal flap at the proximal aspect of the left internal carotid artery, appear more conspicuous than on prior study in 2019 and might represent developing dissection, however acuity is unknown. Report will be sent to emergency Department. 2. 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 ACT 112: Negative or not required by law. The above report was generated using voice recognition software. It may contain grammatical, syntax or spelling errors. Electronically signed by: Gale Hermosillo DO 05/30/2021 7:26 AM Cervical Spine MRI 05/30/21 09:54 MRI OF THE CERVICAL SPINE COMBO CLINICAL HISTORY: Ambulatory dysfunction. Neck pain. Left upper chest pain numbness. Headache. COMPARISON STUDY: CT of the cervical spine dated 10/22/2020. CT angiogram of the neck dated 05/29/2021. TECHNIQUE: MRI of the cervical spine is performed utilizing various T1 and T2- weighted sequences in the axial and sagittal planes. Contrast-enhanced sequences were acquired following the IV administration of 7.5 cc of Gadavist. The examination is compromised by motion artifact. FINDINGS: Cervical spine: Marrow signal intensity is heterogeneous. Vertebral body height is maintained throughout the cervical spine. Cortical lag screws are present in the body of C2 extending from the base of the vertebral body into the odontoid process. There is mild anterolisthesis at C2-C3. Minimal retrolisthesis is noted C6-C7. Alignment is otherwise maintained. There is straightening of the cervical lordosis with reversal centered at C5. There is near complete bony fusion of C4, C5, and C6. The atlantodens articulation is maintained noting productive deg enerative change. The spinous processes appear intact. A hemangioma is noted in the body of T3. No destructive bony lesion is seen. Anterior osteophytes are seen throughout. There is a chronic appearing compression deformity of T4. Intervertebral discs: As noted above, there is near complete bony fusion from C4 through C6. Disc desiccation and moderate to severe loss of height are seen at the remaining cervical levels. Spinal cord: The cervical spinal cord is normal in morphology and signal intensity. No abnormal postcontrast enhancement is identified. C2-C3: A posterior disc osteophyte complex eccentric to the right effaces the ventral cord. Uncovertebral and facet arthropathy contribute to severe bilateral neural foraminal stenosis, right greater than left. C3-C4: A posterior disc osteophyte complex abuts the ventral cord. Uncovertebral and facet arthropathy cause severe left and moderate to severe right neural foraminal stenosis. C4-C5: A posterior disc osteophyte complex minimally effaces the ventral cord. Uncovertebral and facet arthropathy cause severe left and moderate right neural foraminal stenosis. C5-C6: A posterior disc osteophyte complex abuts the ventral cord. Uncovertebral and facet arthropathy cause severe bilateral neural foraminal stenosis. C6-C7: A posterior disc osteophyte complex minimally effaces the ventral cord. Uncovertebral and facet arthropathy contribute to severe bilateral neural foraminal stenosis. C7-T1: The central canal is clear. Bulky facet arthropathy causes severe left and moderate to severe right neural foraminal stenosis. Soft tissues: There is fatty atrophy of the paraspinous musculature. The prevertebral soft tissues are normal as visualized. Brain parenchyma: The visualized brain parenchyma at the skull base is within normal limits. IMPRESSION: 1. Advanced multilevel cervical spondylosis as above. See discussion for detailed level of analysis. 2. No acute osseous abnormality is identified. 3. Postoperative change is noted in the body of C2. 4. The cervical spinal cord is normal in morphology and signal intensity with no abnormal postcontrast enhancement identified. Dictated: 05/30/2021 10:02 PM Transcribed: 05/30/2021 11:44 PM Jennifer [id number] DIAN_Emmanuel Electronically signed by: Adan Vallecillo M.D. 05/30/2021 11:48 PM Cholangiopancreatography MRI 05/30/21 10:18 MRCP CLINICAL HISTORY: Pancreatitis. COMPARISON STUDY: Abdominal CT dated 05/30/2021. MRCP dated 04/16/2021. TECHNIQUE: Abdominal MRCP is performed utilizing various T2-weighted sequences in the axial and coronal planes. 3-D reformats are created and assessed. IV contrast was not administered for this examination. The examination is compromised by motion artifact. A common bile duct stent is in place. FINDINGS: The gallbladder is surgically absent. Stents are present within the common bile duct and the pancreatic duct. The common bile duct measures up to [address] There is no evidence of choledocholithiasis, although this is not well assessed due to the presence of an indwelling stent. The pancreatic duct is normal in caliber. There is no significant intrahepatic biliary ductal dilatation. The unenhanced liver, spleen, adrenal glands, and pancreas are grossly normal. The kidneys demonstrate cortical atrophy and are without hydronephrosis. Subcentimeter renal cysts are seen bilaterally. The abdominal aorta is normal in caliber. There is no bowel obstruction. No abdominal ascites is identified. A duodenal diverticulum is incidentally noted. There is no pleural effusion. The bony structures are intact as visualized. IMPRESSION: 1. Status post cholecystectomy. 2. There are stents within the common bile duct and within the pancreatic duct which significantly degrades the examination. 3. There is no significant intra- or extrahepatic biliary ductal dilatation. 4. There is no obvious evidence of choledocholithiasis on the provided images. Again, this is not well evaluated. Dictated: 05/30/2021 6:22 PM Transcribed: 05/30/2021 8:27 PM Natali [id number] Iggy Electronically signed by: Adan Vallecillo M.D. 05/30/2021 8:[address] 05/30/21 11:09 CT SCAN OF THE ABDOMEN AND PELVIS WITHOUT CONTRAST CLINICAL HISTORY: attention pancreas COMPARISON STUDY: April 18, 2021. Also correlation is made with ERCP performed on April 20, 2021. TECHNIQUE: CT scan of the abdomen and pelvis was performed from the lung bases to the proximal femurs. Images are reviewed in the axial, sagittal, and coronal planes. IV contrast was not administered for this examination. A dose lowering technique was utilized adhering to the principles of ALARA. CT DOSE: 509.40 mGycm FINDINGS: Lower chest: Mild atelectasis at dependent portions of bilateral lower lobes is improved since prior. Liver: The unenhanced liver is normal in size, contour, and attenuation. There is no intrahepatic biliary ductal dilatation. Gallbladder: Is surgically absent. Interval placement of the stent to the common bile duct and proximal aspect of the pancreas. Pancreatic duct stent is seen coiling within the duodenal lumen. Previously seen calculus within distal aspect of the common bile duct is no longer visualized. Spleen: Normal in size and attenuation. Pancreas: Normal appearance of the pancreatic parenchyma on this nonenhanced exam. Adrenal glands: Unremarkable. Kidneys: The unenhanced kidneys are normal in size without hydronephrosis. There is no contour deforming renal mass lesion. No renal calculi are identified. Small vascular calculus is seen on the right. Bowel: Visualized loops of bowel are nondilated. Appendix is not well seen. Diverticulosis of descending colon seen without evidence of diverticulitis. Peritoneum: There is no intraperitoneal free air or abdominal ascites. Vasculature: The abdominal aorta is normal in course and caliber. Adenopathy: Multiple small retroperitoneal lymph nodes measuring less than 1 cm in short axis, nonpathological by CT size criteria. No mesenteric lymphadenopathy seen. Skeletal structures: Osteopenia. Multilevel degenerative changes of the spine. IMPRESSION: 1. Previously seen calculus within common bile duct is no longer visualized. Interval placement of stents within common bile duct and proximal aspect of the pancreatic duct. No ductal dilatation is seen. 2. The rest of findings as above. ACT 112: Negative or not required by law. The above report was generated using voice recognition software. It may contain grammatical, syntax or spelling errors. Electronically signed by: Gale Hermosillo DO 05/30/2021 6:02 PM PG Care Time/CCT Total # of Minutes Spent Total Time Spent with Patient: Total time spent is greater than 50% in coordination of care (as documented) at patient's floor/unit and/or counseling patient: Coding Level of Care Code 05680 Subseq Hosp Care Lvl 3 Diagnoses Atrial flutter I48.3 Atrial flutter type: typical GERD (gastroesophageal reflux disease) K21.9 Esophagitis presence: esophagitis presence not specified CKD (chronic kidney disease) stage 3, GFR 30-59 ml/min N18.3 Acute pancreatitis K85.90 Dizziness R42 Dementia F03.90 Dementia behavioral disturbance: without behavioral disturbance Dementia type: unspecified type (1) Atrial flutter Atrial flutter type: typical Qualified Code(s): I48.3 - Typical atrial flutter (2) GERD (gastroesophageal reflux disease) Esophagitis presence: esophagitis presence not specified Qualified Code(s): K21.9 - Gastro-esophageal reflux disease without esophagitis (3) Dementia Dementia behavioral disturbance: without behavioral disturbance Dementia type: unspecified type Qualified Code(s): F03.90 - Unspecified dementia without behavioral disturbance
[2021-05-31] MEDS: ASPIRIN 81 MG ECTAB PO SCH (09:43)
[2021-05-31] MEDS: CITALOPRAM 40 MG TAB PO SCH (09:44)
[2021-05-31] MEDS: DICYCLOMINE HCL 10 MG CAP PO SCH (09:45)
[2021-05-31] MEDS: FAMOTIDINE 20 MG TAB PO SCH (09:45)
[2021-05-31] MEDS: hydrALAZINE HCL 25 MG TAB PO SCH ×3 (09:46→20:15)
[2021-05-31] MEDS: lisinopril 10 MG TAB PO SCH (09:46)
[2021-05-31] MEDS: METOPROLOL SUCC 25MG EXT REL TAB PO SCH (09:46)
[2021-05-31] MEDS: SACCHAROMYCES BOULARDII 250 MG CAP PO SCH ×2 (09:47→20:16)
[2021-05-31] MEDS: PANTOprazole 40 MG TAB PO SCH (09:47)
[2021-05-31] MEDS: APIXABAN 2.5 MG TAB PO SCH ×2 (10:48→20:15)
--- NOTE | 2021-05-31 11:17 | Neurology Progress Note ---
Date of Service May 31, 2021 Assessment & Plan (1) Dizziness: (2) Dementia: (3) Cervical spinal stenosis: (4) Frequent headaches: (5) Gait abnormality: (6) Pain and numbness of left upper extremity: (7) Occlusion of left vertebral artery: Plan: This patient has multiple neurologic issues. He has an underlying dementia, likely vascular, which is mild and fairly stable. He is still functioning fairly well. MRI currently, shows a moderate amount of small vessel old ischemic change. He has some moderate atrophy as well consistent with his age. The patient has "dizziness". This is a combination of vertiginous feelings and some lightheadedness when he sits up or stands. It lasts for a few seconds and then resolves. This is likely a combination of inner ear dysfunction (benign positional vertigo) with some vertebral basilar insufficiency ( has an occlusion of the left vertebral artery which is likely old ). his dizziness is a little better today compared to yesterday. The patient has severe cervical spinal stenosis at multiple levels, from disc and bone. MRI shows that this stenosis is up to the cord impinging it but not compressing it or causing cord signal change. 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 He does not have incontinence of urine, either. He has frequent headaches emanating from the left occipital head region. This is likely mechanical from his cervical spinal stenosis. His gait disturbance is likely a combination of a sensory ataxia from his peripheral neuropathy as well as the cervical spinal stenosis and vascular c hanges in his brain. The patient has some numbness in the left upper extremity which is likely radicular in nature from his neck. Recommendations: 1. Continue 81 milligram aspirin daily. Anticoagulation alone will not stop small vessel ischemic disease. 2. physical and occupational therapy. 3. given the patient's advanced age and multiple medical problems, I am not certain he would be a cervical spine surgical candidate 4. I will not make any new medication treatment recommendations from a neurologic standpoint. I would like, however, to follow him as an outpatient and consider additional medication then depending on his clinical course. 5. Defer abdominal pain issues to hospitalists and PCP Overall, I spent a total of 25 minutes with this case including review of records, review of MRI films, direct evaluation the patient at bedside, and discussion of the case with the patient at bedside, RN at bedside, and , including differential diagnosis and treatment options. Admission and Anticipated Discharge Date Admission Date: May 30, 2021 Subjective patient is feeling better today. His balance is a little bit better and his limbs have no symptoms. MRI of the brain showed moderate old small-vessel ischemic disease and no acute stroke. MRI of the cervical spine showed advanced spondylosis and spinal stenosis particularly at C2-3 and C5-6. There did not seem to be any cord compression or abnormal signal within the cord. I reviewed these MRI films. Results & Data ([facility]) Vital Signs (Past 12 Hours) Vital Signs Temp Pulse Resp BP Pulse Ox 05/31/21 09:42 67 128/65 05/31/21 07:22 36.5 C 62 16 137/61 95 05/30/21 23:21 36.5 C 64 18 105/58 L 96 Exam (Neuro) Physical Exam: He is awake and alert. He is sitting up in a chair without difficulty. Mood and affect is normal appropriate. Thought processes are intact with good long and short-term memory. Extraocular muscles are intact without nystagmus. Coordination is normal in the arms the strength is symmetrical in all limbs. PG Care Time/CCT Total # of Minutes Spent Total Time Spent with Patient: Total time spent is greater than 50% in coordination of care (as documented) at patient's floor/unit and/or counseling patient: Coding Level of Care Code 54821 Subseq Hosp Care Lvl 2 Diagnoses Dizziness R42 Dementia F03.90 Dementia type: unspecified type Dementia behavioral disturbance: without behavioral disturbance Cervical spinal stenosis M48.02 Frequent headaches R51 Gait abnormality R26.9 Pain and numbness of left upper extremity M79.602; R20.0 Occlusion of left vertebral artery I65.02 Time Spent (min) 25 (1) Dementia Dementia type: unspecified type Dementia behavioral disturbance: without behavioral disturbance Qualified Code(s): F03.90 - Unspecified dementia without behavioral disturbance
[2021-06-01] MEDS: hydrALAZINE HCL 25 MG TAB PO SCH ×3 (08:51→20:25)
[2021-06-01] MEDS: SACCHAROMYCES BOULARDII 250 MG CAP PO SCH ×2 (08:51→20:25)
[2021-06-01] MEDS: PANTOprazole 40 MG TAB PO SCH (08:51)
[2021-06-01] MEDS: FAMOTIDINE 20 MG TAB PO SCH (08:52)
[2021-06-01] MEDS: lisinopril 10 MG TAB PO SCH (08:52)
[2021-06-01] MEDS: DICYCLOMINE HCL 10 MG CAP PO SCH (08:52)
[2021-06-01] MEDS: CITALOPRAM 40 MG TAB PO SCH (08:52)
[2021-06-01] MEDS: METOPROLOL SUCC 25MG EXT REL TAB PO SCH (08:53)
[2021-06-01] MEDS: APIXABAN 2.5 MG TAB PO SCH ×2 (08:53→20:25)
[2021-06-01] MEDS: ASPIRIN 81 MG ECTAB PO SCH (08:53)
[2021-06-01 12:31] LABS: Albumin Level 3.1 gm/dl (3.4-5.0); BUN Creatinine Ratio 10.5 (10-20); Bilirubin,Total 0.4 mg/dl (0.2-1); Calcium 8.7 mg/dl (8.5-10.1); Creatinine Clr Calc Pharmacy 41.4 ml/min; Est GFR (African American) 58.8 ml/min; Est GFR (Non-African American) 50.7 ml/min; Potassium 4.8 mmol/L (3.5-5.1); Total Protein 6.1 gm/dl (6.4-8.2)
--- NOTE | 2021-06-01 12:45 | Hospitalist Progress Note ---
Date of Service June 01, 2021 Assessment & Plan (1) Acute pancreatitis: Plan: Appears low-grade acute pancreatitis; MRCP does not show choledocholithiasis Seemed to be improving but today again discomfort, lipase higher Discomfort more left side of abdomen -Unsure of significance of all of this but at present keep on clears; if persists may need to talk to GI again, consider CT scan with contrast (without contrast not sensitive for diverticulitis) -do not think we need to jump to same today; note alk phos and liver enzymes are normal as is bilirubin (2) Dizziness: Plan: Chronic; C-spine MRI does not appear to have anything acute aspirin added per neurology recommendations-see PT note, can go home from their perspective but see note (3) Atrial flutter: Plan: Paroxysmal, and follow clinically; clinically regular Per discussion with GI Eliadeis has been resumed since it did not appear intervention was needed-not held at present (4) GERD (gastroesophageal reflux disease): Plan: PPI (5) CKD (chronic kidney disease) stage 3, GFR 30-59 ml/min: Plan: Stable to betterfollow (6) Dementia: Plan: Seems mild, no overt delirium Admission and Anticipated Discharge Date Admission Date: May 30, 2021 Subjective Follow-up of presentation of abdominal pain, dizziness; again complaint of abdominal discomfort/pain-points to left side upper/mid quadrant Physical Exam Physical Exam: Constitutional and general: No acute distress, looks biologic age Head and face: No puffiness, atraumatic Eyes: No scleral icterus, extraocular movements normal Neck: Supple, no JVD Musculoskeletal: No acute joint swelling, no bony abnormalities Skin/dermatologic/integument: No rash, no purpura Hematologic and lymphatic: pallor +, no petechia Gastrointestinal/abdomen: Nondistended, tenderness left side but nonperitoneal Neurologic: Cranial nerves intact, nonfocal Psychiatry: Awake, alert, pleasant, communicative Cardiovascular: Heart rhythm regular, no rub, no murmur, no gallop Respiratory: Chest movements equal, no use of accessory muscles, no adventitious sounds Extremities: No edema, no cyanosis Results & Data Results & Data ([facility]) Vital Signs (Past 12 Hours) Vital Signs Temp Pulse Resp BP BP Pulse Ox 06/01/21 08:50 68 122/68 06/01/21 07:57 36.4 C L 66 18 146/70 H 95 Laboratory Results Laboratory Results - last 24 hr 06/01/21 06/01/21 07:49 11:50 Sodium 139 Potassium 4.8 Chloride 106 Carbon Dioxide 29 Anion Gap 4.0 BUN 13 Creatinine 1.25 Est Cr Clr Drug Dosing 41.4 Est GFR ( Amer) 58.8 Est GFR (Non-Af Amer) 50.7 BUN/Creatinine Ratio 10.5 Glucose 96 Fasting Glucose 96 Calcium 8.7 Magnesium 2.2 Total Bilirubin 0.4 AST 19 ALT 20 Alkaline Phosphatase 73 Total Protein 6.1 L Albumin 3.1 L Globulin 3.0 Albumin/Globulin Ratio 1.0 Lipase 1114 H PG Care Time/CCT Total # of Minutes Spent Total Time Spent with Patient: Total time spent is greater than 50% in coordination of care (as documented) at patient's floor/unit and/or counseling patient: Coding Level of Care Code 70054 Subseq Hosp Care Lvl 3 Diagnoses Acute pancreatitis K85.90 Dizziness R42 Atrial flutter I48.3 Atrial flutter type: typical GERD (gastroesophageal reflux disease) K21.9 Esophagitis presence: esophagitis presence not specified CKD (chronic kidney disease) stage 3, GFR 30-59 ml/min N18.3 Dementia F03.90 Dementia behavioral disturbance: without behavioral disturbance Dementia type: unspecified type (1) Atrial flutter Atrial flutter type: typical Qualified Code(s): I48.3 - Typical atrial flutter (2) Dementia Dementia behavioral disturbance: without behavioral disturbance Dementia type: unspecified type Qualified Code(s): F03.90 - Unspecified dementia without behavioral disturbance (3) GERD (gastroesophageal reflux disease) Esophagitis presence: esophagitis presence not specified Qualified Code(s): K21.9 - Gastro-esophageal reflux disease without esophagitis
[2021-06-02] MEDS: hydrALAZINE HCL 25 MG TAB PO SCH ×3 (07:51→20:27)
[2021-06-02] MEDS: CITALOPRAM 40 MG TAB PO SCH (07:51)
[2021-06-02] MEDS: SACCHAROMYCES BOULARDII 250 MG CAP PO SCH ×2 (07:51→20:27)
[2021-06-02] MEDS: DICYCLOMINE HCL 10 MG CAP PO SCH (07:51)
[2021-06-02] MEDS: ASPIRIN 81 MG ECTAB PO SCH (07:51)
[2021-06-02] MEDS: APIXABAN 2.5 MG TAB PO SCH ×2 (07:52→20:27)
[2021-06-02] MEDS: FAMOTIDINE 20 MG TAB PO SCH (07:52)
[2021-06-02] MEDS: PANTOprazole 40 MG TAB PO SCH (07:52)
[2021-06-02] MEDS: METOPROLOL SUCC 25MG EXT REL TAB PO SCH (07:52)
[2021-06-02] MEDS: lisinopril 10 MG TAB PO SCH (07:52)
[2021-06-02 08:04] LABS: Basophils # (auto) 0.01 K/uL (0-0.2); Basophils % (auto) 0.3 %; Eosinophils # (auto) 0.02 K/uL (0-0.5); Eosinophils % (auto) 0.5 %; Hematocrit (blood only) 40.5 % (42-52); Hemoglobin 13.6 g/dL (14.0-18.0); Lymphocytes # (auto) 1.52 K/uL (1.2-3.4); Lymphocytes % (auto) 40.6 %; Mean Corpuscular Hgb Conc 33.6 g/dL (32-36); Mean Corpuscular Volume 95.3 fL (80-100); Mean Platelet Volume 9.5 fL (7.4-10.4); Monocytes # (auto) 0.34 K/uL (0.11-0.59); Monocytes % (auto) 9.1 %; Neutrophils # (auto) 1.85 K/uL (1.4-6.5); Neutrophils % (auto) 49.5 %; Platelet Count 236 K/uL (130-400); RDW Coefficient of Variation 13.7 % (11.5-14.5); RDW Standard Deviation 47.5 fL (36.4-46.3); Red Blood Count 4.25 M/uL (4.7-6.1); White Blood Count 3.74 K/uL (4.8-10.8)
[2021-06-02 08:33] LABS: Albumin Level 3.3 gm/dl (3.4-5.0); BUN Creatinine Ratio 8.7 (10-20); Calcium 8.9 mg/dl (8.5-10.1); Creatinine Clr Calc Pharmacy 41.7 ml/min; Est GFR (African American) 59.4 ml/min; Est GFR (Non-African American) 51.2 ml/min; Magnesium 1.9 mg/dl (1.8-2.4); Potassium 4.2 mmol/L (3.5-5.1)
[2021-06-02 08:36] LABS: Albumin Globulin Ratio 0.9 (0.9-2); Bilirubin,Total 0.5 mg/dl (0.2-1); Globulin 3.5 gm/dl (2.5-4.0); Total Protein 6.8 gm/dl (6.4-8.2)
[2021-06-02] MEDS ORDERED: MECLIZINE HCL 25 MG TAB PO PRN (12:59)
--- NOTE | 2021-06-02 13:08 | Hospitalist Progress Note ---
Date of Service June 02, 2021 Assessment & Plan (1) Acute pancreatitis: Plan: Appears low-grade acute pancreatitis; MRCP does not show choledocholithiasis Seemed to be improving but still some abd pain today that is mild Lipase improving Has CBD and pancreatic duct stents placed recently LFTs all normal CT abdomen no diverticulitis or other acute findings if persists may need to talk to GI again, consider CT scan with contrast (without contrast not sensitive for diverticulitis) -ok to advance diet to low fat follow LFTs,lipase in AM pain control prn (2) Dizziness: Plan: Chronic; C-spine MRI does not appear to have anything acute aspirin added per neurology recommendations -MRI brain deferred as would not exchange specialist -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 -overall improved but returned today after ambulating halls independently -trial of meclizine today (3) Atrial flutter: Plan: Paroxysmal, and follow clinically; clinically regular Per discussion with GI, Eliquis has been resumed since it did not appear intervention was needed (4) GERD (gastroesophageal reflux disease): Plan: PPI, Pepcid (5) CKD (chronic kidney disease) stage 3, GFR 30-59 ml/min: Plan: Stable to betterfollow (6) Dementia: Plan: Seems mild, no overt delirium Plan: DVT Proph-apixaban Dispo-continued stay Admission and Anticipated Discharge Date Admission Date: May 30, 2021 Subjective Pt was feeling well but then walked for a few laps around the [place] and now feeling dizzy again. Also still having some mild epigastric pain but not severe. Tolerating clear liquids but wanting regular food. No other concernes but doesn't feel he's ready to go home yet. Review of Systems Review of Systems: All systems reviewed & are unremarkable except as noted in HPI & below Physical Exam Constitutional: WD/WN, vitals as above Eyes: + anicteric sclerae Neck: trachea midline, no thyromegaly Respiratory: normal respiratory effort, lungs clear to auscultation Cardiovascular: RRR, no murmur, no edema Chest (Breasts): Chest: normal inspection of chest Gastrointestinal (Abdomen): normal bowel sounds, soft, nontender, no hepatosplenomegaly Musculoskeletal: Extremities: extremities normal to inspection; no cyanosis and no clubbing Skin: no rashes, warm and dry Neurologic: moves all extremities and awake; no focal motor deficits Psychiatric: A+Ox3, euthymic affect Lymphatic: no lymphedema Results & Data Results & Data ([facility]) Vital Signs (Past 12 Hours) Vital Signs Temp Pulse Resp BP Pulse Ox 06/02/21 07:28 36.7 C 57 L 16 152/64 H 96 Laboratory Results 06/02/21 06/02/21 Range/Units 07:21 07:21 WBC 3.74 L (4.8-10.8) K/uL RBC 4.25 L (4.7-6.1) M/uL Hgb 13.6 L (14.0-18.0) g/dL Hct 40.5 L (42-52) % MCV 95.3 (80-100) fL MCH 32.0 (25-34) pg MCHC 33.6 (32-36) g/dL RDW Std Deviation 47.5 H (36.4-46.3) fL RDW Coeff of Reilly 13.7 (11.5-14.5) % Plt Count 236 (130-400) K/uL MPV 9.5 (7.4-10.4) fL Immature Gran % (Auto) 0.0 % Neut % (Auto) 49.5 % Lymph % (Auto) 40.6 % [place] % (Auto) 9.1 % Eos % (Auto) 0.5 % Baso % (Auto) 0.3 % Neut # (Auto) 1.85 (1.4-6.5) K/uL Lymph # (Auto) 1.52 (1.2-3.4) K/uL [place] # (Auto) 0.34 (0.11-0.59) K/uL Eos # (Auto) 0.02 (0-0.5) K/uL Baso # (Auto) 0.01 (0-0.2) K/uL Immature Gran # (Auto) 0.00 (0.00-0.02) K/uL Sodium 138 (136-145) mmol/L Potassium 4.2 (3.5-5.1) mmol/L Chloride 103 (98-107) mmol/L Carbon Dioxide 27 (21-32) mmol/L Anion Gap 8.0 (3-11) BUN 11 (7-18) mg/dl Creatinine 1.24 (0.6-1.4) mg/dl Est Cr Clr Drug Dosing 41.7 ml/min Est GFR ( Amer) 59.4 ml/min Est GFR (Non-Af Amer) 51.2 ml/min BUN/Creatinine Ratio 8.7 L (10-20) Glucose 97 (70-99) mg/dl Calcium 8.9 (8.5-10.1) mg/dl Magnesium 1.9 (1.8-2.4) mg/dl Total Bilirubin 0.5 (0.2-1) mg/dl AST 26 (15-37) U/L ALT 22 (12-78) U/L Alkaline Phosphatase 80 (45-117) U/L Total Protein 6.8 (6.4-8.2) gm/dl Albumin 3.3 L (3.4-5.0) gm/dl Globulin 3.5 (2.5-4.0) gm/dl Albumin/Globulin Ratio 0.9 (0.9-2) Lipase 866 H (73-393) U/L PG Care Time/CCT Total # of Minutes Spent Total Time Spent with Patient: Total time spent is greater than 50% in coor dination of care (as documented) at patient's floor/unit and/or counseling patient: Coding Level of Care Code 82828 Subseq Hosp Care Lvl 2 Diagnoses Acute pancreatitis K85.90 Dizziness R42 Atrial flutter I48.3 Atrial flutter type: typical GERD (gastroesophageal reflux disease) K21.9 Esophagitis presence: esophagitis presence not specified CKD (chronic kidney disease) stage 3, GFR 30-59 ml/min N18.3 Dementia F03.90 Dementia behavioral disturbance: without behavioral disturbance Dementia type: unspecified type (1) Atrial flutter Atrial flutter type: typical Qualified Code(s): I48.3 - Typical atrial flutter (2) GERD (gastroesophageal reflux disease) Esophagitis presence: esophagitis presence not specified Qualified Code(s): K21.9 - Gastro-esophageal reflux disease without esophagitis (3) Dementia Dementia behavioral disturbance: without behavioral disturbance Dementia type: unspecified type Qualified Code(s): F03.90 - Unspecified dementia without behavioral disturbance
[2021-06-02] MEDS ORDERED: MECLIZINE HCL 25 MG TAB PO ONE (13:15)
[2021-06-03 07:38] LABS: Basophils # (auto) 0.01 K/uL (0-0.2); Basophils % (auto) 0.3 %; Eosinophils # (auto) 0.02 K/uL (0-0.5); Eosinophils % (auto) 0.6 %; Hematocrit (blood only) 38.8 % (42-52); Hemoglobin 12.9 g/dL (14.0-18.0); Lymphocytes # (auto) 1.14 K/uL (1.2-3.4); Lymphocytes % (auto) 34.7 %; Mean Corpuscular Hemoglobin 31.5 pg (25-34); Mean Corpuscular Hgb Conc 33.2 g/dL (32-36); Mean Corpuscular Volume 94.9 fL (80-100); Mean Platelet Volume 9.5 fL (7.4-10.4); Monocytes # (auto) 0.36 K/uL (0.11-0.59); Monocytes % (auto) 10.9 %; Neutrophils # (auto) 1.76 K/uL (1.4-6.5); Neutrophils % (auto) 53.5 %; Platelet Count 203 K/uL (130-400); RDW Coefficient of Variation 13.6 % (11.5-14.5); RDW Standard Deviation 46.8 fL (36.4-46.3); Red Blood Count 4.09 M/uL (4.7-6.1); White Blood Count 3.29 K/uL (4.8-10.8)
[2021-06-03 08:15] LABS: Albumin Level 3.1 gm/dl (3.4-5.0); BUN Creatinine Ratio 10.1 (10-20); Est GFR (African American) 53.1 ml/min; Est GFR (Non-African American) 45.8 ml/min; Magnesium 2.1 mg/dl (1.8-2.4); Potassium 4.2 mmol/L (3.5-5.1)
[2021-06-03 08:16] LABS: Bilirubin,Total 0.5 mg/dl (0.2-1); Globulin 3.2 gm/dl (2.5-4.0); Total Protein 6.3 gm/dl (6.4-8.2)
[2021-06-03] MEDS: lisinopril 10 MG TAB PO SCH (08:31)
[2021-06-03] MEDS: FAMOTIDINE 20 MG TAB PO SCH (08:31)
[2021-06-03] MEDS: CITALOPRAM 40 MG TAB PO SCH (08:31)
[2021-06-03] MEDS: METOPROLOL SUCC 25MG EXT REL TAB PO SCH (08:31)
[2021-06-03] MEDS: ASPIRIN 81 MG ECTAB PO SCH (08:31)
[2021-06-03] MEDS: SACCHAROMYCES BOULARDII 250 MG CAP PO SCH (08:31)
[2021-06-03] MEDS: hydrALAZINE HCL 25 MG TAB PO SCH ×2 (08:31→13:30)
[2021-06-03] MEDS: PANTOprazole 40 MG TAB PO SCH (08:31)
[2021-06-03] MEDS: DICYCLOMINE HCL 10 MG CAP PO SCH (08:31)
[2021-06-03] MEDS: APIXABAN 2.5 MG TAB PO SCH (08:31)
--- NOTE | 2021-06-03 13:14 | Discharge Summary ---
Date of Service June 03, 2021 Admission HPI Per Admitting Provider 89 yo M with hx dementia, gait abnormalities, DJD,GERd, c-spine stenosis, BPH, CKD3, anxiety,HLD, ELIANA, OA in ER for 4 days of dizziness. He states nothing changed in his diet or pattern to cause it to happen. no associated chest pain or shortness of breath. it impaired his ability to walk and take care of himself more than usual. he lives at home with his , but all 3 of his children [place] the [place] with them and each of their own 10 acre section. He states he feels much better now having received IVfluids. He hadn't been able to drink or eat much in the past few days due to the nausea associated with the dizziness. NO episodes of vomiting, does occasionally have watery diarrhea but that is a chronic problem for him. no fevers, chills. Principal Diagnosis BPPV, Vertebral-basilar insufficiency, Acute pancreatitis Discharge Exam Constitutional WD/WN, vitals as above Eyes + anicteric sclerae Neck trachea midline, no thyromegaly Respiratory normal respiratory effort, lungs clear to auscultation Cardiovascular RRR, no murmur, no edema Chest (Breasts) Chest: normal inspection of chest Gastrointestinal (Abdomen) normal bowel sounds, soft, nontender, no hepatosplenomegaly Musculoskeletal Extremities: extremities normal to inspection; no cyanosis and no clubbing Skin no rashes, warm and dry Neurologic moves all extremities and awake; no focal motor deficits Psychiatric A+Ox3, euthymic affect Lymphatic no lymphedema Discharge Data Allergies Allergy/AdvReac Type Severity Reaction Status Date / Time vancomycin Allergy Intermediate LOWER Verified 05/29/21 21:00 EXTREMITY SWELLING, FEVER Sulfa (Sulfonamide Allergy Mild Rash Verified 05/29/21 21:00 Antibiotics) gabapentin AdvReac Mild drowsy,conf Verified 05/29/21 21:00 used adhesive AdvReac peña tears Verified 05/29/21 21:00 Consultations 05/29/21 22:05 ED Decision to Admit Stat 05/30/21 06:00 Consult Neurology Routine 05/30/21 10:39 Consult Gastroenterology Routine Ordered Studies 05/29/21 19:35 CT head/brain wo con Urgent 05/29/21 19:36 CT angio head w con Urgent CT angio neck with con Urgent 05/30/21 09:54 MR cervical spine wo/w con Routine 05/30/21 10:18 MR MRCP Routine 05/30/21 11:09 CT abdomen wo con Routine Hospital Course (1) Acute pancreatitis: Appears low-grade acute pancreatitis; MRCP does not show choledocholithiasis Seemed to be improving daily but still some abd pain today that is mild, not requiring pain meds Lipase improving down to 600 Has CBD and pancreatic duct stents placed recently LFTs all remain normal Tolerating low fat diet-continue on discharge CT abdomen no diverticulitis or other acute findings Stable for dc to home Keep f/u appt with GI for stent removal in Jun (2) Dizziness: Chronic; C-spine MRI does not appear to have anything acute aspirin added per neurology recommendations -MRI brain deferred as would not private branch exchange service adviser -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 -overall improved and meclizine helped--> is ambulating halls independently -continue meclizine prn on discharge (3) Atrial flutter: Paroxysmal, and follow clinically; clinically regular rhythm here Per discussion with GI, Eliquis has been resumed since it did not appear intervention was needed (4) GERD (gastroesophageal reflux disease): continue Pepcid (5) CKD (chronic kidney disease) stage 3, GFR 30-59 ml/min: Stable to betterfollow as outpt -Avoid nephrotoxins -renally dose meds when appropriate (6) Dementia: Seems mild, no overt delirium DVT Proph-apixaban Dispo-stable for dc to home Discussed care with daughter on phone on 06/02 and 06/03 Total Time Total Time Spent Total Time Spent (In Minutes): 35 min Discharge Plan Discharge Items Patient Disposition: Home - Self-Care Reason For Visit: DIZZINESS Discharge Diagnosis: Vertigo, Vertebral-basilar insufficiency, Acute pancreatitis Condition on Discharge: Good Activity: Resume your previous activity Non-emergency contact: Primary Care Provider and Continuous Vulcanizing Machine Operator Call non-emergency contact if: you have any medication questions, your symptoms worsen and your pain is not controlled Follow-up/Referrals: Sally Schaeffer CRNP [Primary Care Provider] - (Follow up within 1-2 weeks.) Pablo Garibay MD [Hospitalist] - (Follow up as scheduled in June for your pancreatic duct stent removal.) Diet: Low Fat Addtl Attending Provider Instructions: You were admitted for dizziness. This is secondary to vertigo but also somewhat due to a blockage in one of the blood vessels in the back of the neck. There is nothing that can be done for the blockage, but I would recommend that your blood pressure not drop too low (below 100 for the top number). You can take meclizine as needed for vertigo which did seem to help you. You should also start taking a baby aspirin 81mg once daily for stroke prevention as per the Neurologist's recommendation. You should not be driving a vehicle if you are continuing to have dizzy spells. It is safer to have someone else drive you. Pending Studies at Discharge: No Stand-Alone Forms: [facility] Medications and DC Order Prescriptions: New aspirin 81 mg Tablet,Delayed Release (Dr/Ec) 81 mg PO QAM Qty: 30 RF: 0 meclizine 25 mg Tablet 25 mg PO Q6 PRN (Reason: dizziness) Qty: 20 RF: 0 Continued citalopram 40 mg tablet 40 mg PO QAM Qty: 90 RF: 3 lisinopril 10 mg tablet 10 mg PO DAILY Qty: 30 RF: 3 famotidine 20 mg tablet 20 mg PO BID Qty: 180 RF: 3 dicyclomine 10 mg capsule 10 mg PO DAILY Qty: 90 RF: 0 bumetanide 1 mg tablet 1 mg PO DAILY RF: 0 hydralazine 25 mg tablet 25 mg PO TID RF: 0 azelastine 205.5 mcg (0.15 %) spray,non-aerosol 1 spray intranasal BID Qty: 30 RF: 3 lidocaine 5 % adhesive patch,medicated 1 patch transdermal QAM PRN (Reason: Pain) RF: 0 cranberry 500 mg capsule 1,000 mg PO QAM RF: 0 Otc Potassium 1 tab PO DAILY RF: 0 donepezil 23 mg tablet 23 mg PO HS RF: 0 metoprolol succinate 25 mg tablet extended release 24 hr 25 mg PO DAILY RF: 0 colestipol [Colestid] 1 gram Tablet 1 g PO QID PRN (Reason: diarrhea) Qty: 90 RF: 0 Saccharomyces boulardii [Florastor] 250 mg Capsule 250 mg PO BID Qty: 10 RF: 0 acetaminophen 500 mg capsule 1,000 mg PO TID PRN (Reason: pain) Qty: 0 RF: 0 Eliquis 5 mg tablet 5 mg PO BID Qty: 60 RF: 0 Discharge Orders: Discharge Order (Routine); Ordered 06/03/21 Ordered By: Felisa Seo Admission Data Admit Date/Time: 05/30/21 14:53 Attending Provider: Felisa Seo Admit Provider: Sada Clements Primary Care Provider: Sally Schaeffer Other Providers: Bishop Salazar ; Ruy Phan ; Pablo Garibay Coding Level of Care Code D/C DAY MANAGEMENT >30 MINS Diagnoses Acute pancreatitis K85.90 Dizziness R42 Atrial flutter I48.3 Atrial flutter type: typical GERD (gastroesophageal reflux disease) K21.9 Esophagitis presence: esophagitis presence not specified CKD (chronic kidney disease) stage 3, GFR 30-59 ml/min N18.3 Dementia F03.90 Dementia behavioral disturbance: without behavioral disturbance Dementia type: unspecified type
== END 2021-06-03 14:20 | disposition home or self-care (01) | DRG 439 ==
LOC: ED 17:43 → 3N 17:43 → SUATTDRO 23:16 → 3N 05-30 01:41 → SUATTDRO 05-30 14:53
DX: R27.0 Ataxia, unspecified; Z96.89 Presence of other specified functional implants; G62.9 Polyneuropathy, unspecified; Z98.890 Other specified postprocedural states; G47.33 Obstructive sleep apnea (adult) (pediatric); Z98.1 Arthrodesis status; K85.90 Acute pancreatitis without necrosis or infection, unspecified; Z88.1 Allergy status to other antibiotic agents; F41.9 Anxiety disorder, unspecified; F01.50 Vascular dementia, unspecified severity, without behavioral disturbance, psychotic disturbance, mood disturbance, and anxiety; I48.3 Typical atrial flutter; Z88.8 Allergy status to other drugs, medicaments and biological substances; I48.91 Unspecified atrial fibrillation; I12.9 Hypertensive chronic kidney disease with stage 1 through stage 4 chronic kidney disease, or unspecified chronic kidney disease; K21.9 Gastro-esophageal reflux disease without esophagitis; Z79.01 Long term (current) use of anticoagulants; Z90.49 Acquired absence of other specified parts of digestive tract; Z91.048 Other nonmedicinal substance allergy status; M48.02 Spinal stenosis, cervical region; G45.0 Vertebro-basilar artery syndrome; I45.2 Bifascicular block; N18.30 Chronic kidney disease, stage 3 unspecified; Z79.899 Other long term (current) drug therapy; H81.10 Benign paroxysmal vertigo, unspecified ear; Z88.2 Allergy status to sulfonamides; F32.9 Major depressive disorder, single episode, unspecified

== ENCOUNTER 2021-06-28 23:06 | Inpatient (IN) ==
[2021-06-28] MEDS ORDERED: ONDANSETRON INJ 2 MG/ML 2 ML VIAL IV STA (23:30)
[2021-06-28] MEDS ORDERED: ACETAMINOPHEN 1,000 MG/100 ML VIAL IV STA (23:30)
[2021-06-28] MEDS ORDERED: SODIUM CHLORIDE 0.9% 1000ML 500 ML IV ONE (23:30)
[2021-06-29 00:11] LABS: Basophils # (auto) 0.01 K/uL (0-0.2); Basophils % (auto) 0.3 %; Eosinophils # (auto) 0.04 K/uL (0-0.5); Eosinophils % (auto) 1.1 %; Hematocrit (blood only) 34.8 % (42-52); Hemoglobin 11.6 g/dL (14.0-18.0); Lymphocytes # (auto) 0.76 K/uL (1.2-3.4); Lymphocytes % (auto) 20.5 %; Mean Corpuscular Hemoglobin 32.8 pg (25-34); Mean Corpuscular Hgb Conc 33.3 g/dL (32-36); Mean Corpuscular Volume 98.3 fL (80-100); Mean Platelet Volume 9.4 fL (7.4-10.4); Monocytes # (auto) 0.34 K/uL (0.11-0.59); Monocytes % (auto) 9.2 %; Neutrophils # (auto) 2.56 K/uL (1.4-6.5); Neutrophils % (auto) 68.9 %; Platelet Count 149 K/uL (130-400); RDW Standard Deviation 50.3 fL (36.4-46.3); Red Blood Count 3.54 M/uL (4.7-6.1); White Blood Count 3.71 K/uL (4.8-10.8)
[2021-06-29 00:29] LABS: Alanine Aminotransferase 89 U/L (12-78); Albumin Level 3.5 gm/dl (3.4-5.0); Aspartate Aminotransferase 64 U/L (15-37); BUN Creatinine Ratio 15.8 (10-20); Blood Urea Nitrogen 33 mg/dl (7-18); Calcium 8.9 mg/dl (8.5-10.1); Carbon Dioxide 25 mmol/L (21-32); Chloride 104 mmol/L (98-107); Creatinine Clr Calc Pharmacy 24.5 ml/min; Est GFR (African American) 31.2 ml/min; Est GFR (Non-African American) 26.9 ml/min; Glucose 101 mg/dl (70-99); Lipase 264 U/L (73-393); Potassium 4.6 mmol/L (3.5-5.1); Sodium 135 mmol/L (136-145)
[2021-06-29 00:30] LABS: Appearance Urine Clear (Clear); Bilirubin Urine Negative (Negative); Blood Urine Negative (Negative); Color Urine Yellow; Glucose Urine UA Negative (Negative); Ketones Urine Negative (Negative); Leukocyte Esterase Urine Negative (Negative); Nitrite Urine Negative (Negative); Protein Urine Negative (Negative); Specific Gravity Urine 1.009 (1.000-1.030); Urobilinogen Urine Negative (Negative)
[2021-06-29 00:34] LABS: Albumin Globulin Ratio 1.1 (0.9-2); Alkaline Phosphatase 109 U/L (45-117); Bilirubin,Total 0.7 mg/dl (0.2-1); Globulin 3.2 gm/dl (2.5-4.0); Total Protein 6.7 gm/dl (6.4-8.2); Troponin I < 0.015 ng/ml (0-0.045)
--- NOTE | 2021-06-29 02:19 | Emergency Department Note ---
History of Present Illness General Chief complaint: Abdominal Pain Stated complaint: ABDOMINAL PAIN (RECENT BILE STENT REMOVAL) Time Seen by Provider: 06/28/21 23:20 Source: patient Mode of arrival: ambulatory Limitations: no limitations History of Present Illness Provider complaint: trouble urinating, abdominal pain Onset (ago): day(s) 1 Location: abdomen Radiation: back Maximum Pain Intensity: 8 Exacerbated By: + none Associated symptoms: + loss of appetite; no fever/chills, no headaches, no nausea/vomiting or no weakness This is an 89-year-old male presents emergency department complaining of abdominal pain and urinary frequency. Patient is status post biliary stent removal yesterday, however he stated he felt that procedure went well. Patient states his pain is in his lower abdomen, not upper. Patient denies fevers or chills. Believes he has been drinking adequate water and eating normally. Daughter at bedside helps to some details as the patient has some difficulty with memory and a diagnosis of dementia. She states understanding was of the procedure did go well, and he never developed any of the symptoms until the night after the procedure. She states he otherwise appears in his usual state of health and cognition. No other recent change in medications. Patient is anticoagulated. Patient denies noticing any change in the color or odor of his urine. No black or bloody stools. He denies nausea or vomiting. Pt seen during a time of high acuity and national emergency pandemic while wearing PPE. Home Medications Medication Instructions Recorded Confirmed Type cranberry 500 mg capsule 1,000 mg PO QAM 05/31/19 06/29/21 History citalopram 40 mg tablet 40 mg PO QAM #90 tab 08/26/20 06/29/21 Rx lidocaine 5 % topical patch 1 patch TRANSDERMAL QAM PRN ea 01/21/21 06/29/21 History hydralazine 25 mg tablet 25 mg PO TID 04/08/21 06/29/21 History donepezil 23 mg tablet 23 mg PO HS 04/12/21 06/29/21 History metoprolol succinate 25 mg 25 mg PO QAM 04/18/21 06/29/21 History tablet,extended release 24 hr Saccharomyces boulardii 250 mg 250 mg PO BID #10 cap 04/20/21 06/29/21 Rx capsule (Florastor) acetaminophen 500 mg capsule 1,000 mg PO TID PRN #0 cap 04/20/21 06/29/21 Rx famotidine 20 mg tablet 20 mg PO BID #180 tab 05/13/21 06/29/21 Rx aspirin 81 mg tablet,delayed 81 mg PO QAM #30 tab 06/03/21 06/29/21 Rx release meclizine 25 mg tablet 25 mg PO Q6 PRN #20 tab 06/03/21 06/29/21 Rx tramadol 50 mg tablet 50 mg PO BID PRN #20 tab 06/10/21 06/29/21 Rx lisinopril 10 mg tablet 10 mg PO QAM 06/23/21 06/29/21 History apixaban 2.5 mg tablet (Eliquis) 2.5 mg PO .HOLD 06/29/21 06/29/21 History azelastine 205.5 mcg (0.15 %) 1 spray INTRANASAL BID PRN 06/29/21 06/29/21 History nasal spray Allergies Allergy/AdvReac Type Severity Reaction Status Date / Time vancomycin Allergy Intermediate LOWER Verified 06/29/21 01:41 EXTREMITY SWELLING, FEVER Sulfa (Sulfonamide Allergy Mild Rash Verified 06/29/21 01:41 Antibiotics) gabapentin AdvReac Mild drowsy,conf Verified 06/29/21 01:41 used adhesive AdvReac peña tears Verified 06/29/21 01:41 Past Med/Surg History Medical History Abdominal pain, acute, left lower quadrant VIMAL (acute kidney injury) Anxiety Atrial flutter DX OCT 2020> ELIQUIS/METOPROLOL 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 BPH (benign prostatic hyperplasia) Cervical facet joint syndrome Cervical radicular pain Cervical spinal stenosis Left C7 and 8 paresthesias Cervicogenic headache CKD (chronic kidney disease) stage 3, GFR 30-59 ml/min follows PCP Diverticulitis Dyslipidemia GERD (gastroesophageal reflux disease) CONTROLLED Headache Hearing difficulty History of kidney stones Hypertension Impaired fasting glucose Hgb A1C 6.8 on 04/11/20 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 not using due to recall cpap Myofascial pain Nocturnal hypoxemia Occipital neuralgia of left side Osteoarthritis Pancreatitis last episode in 05/2021 Surgical History H/O colonoscopy (06/2013) History of cystoscopy History of difficult intubation CHOLECYSTECTOMY= 01/11/14= GLIDESCOPE #4 (2/2 DECREASED CERVICAL ROM) BUT HAD GRADE VIEW 1, MAC 4 WITH ANKLE SURGERY 11/09/14 PER [facility] RECORDS History of esophagogastroduodenoscopy (EGD) (09/2019) History of shoulder surgery Rt shoulder - 09/22/18 [facility] History of total knee replacement B/L WITH REVISIONS; LEFT TKA REVISION= 05/13/17= SAB X 2 ATTEMPTS + PNB AT [facility] Hx of cervical spine surgery ROM LIMITED FROM SIDE TO SIDE Hx of total ankle replacement RIGHT S/P cholecystectomy S/P ERCP 04/20/21 Dr. Pablo Garibay- 2 stones removed, 2 stents placed Squamous cell carcinoma of back resolved Family History Son Family history of diabetes mellitus Other No family history of adverse response to anesthesia No pertinent family history Denies family history of Ovarian cancer Prostate cancer Myocardial infarction Breast cancer Colorectal cancer Social History Smoking Status: Never smoker Second Hand Exposure: No; Hx Alcohol Use: No Hx Substance Use: No Preferred Language: Czech Communication Ability: Effective Visual Impairment: No Limitations Pull Over Machine Operator Required: No Beliefs That Will Affect Care: None marital status: Current Living Situation: Spouse Current Living Situation Comment: Lives with , caregivers current occupational status: retired 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 Feels Safe at Home: Yes Childhood Exposure to Second-Hand Smoke: No caffeine: Yes Dental Care, Regularly: Yes Physical Activity Frequency: Daily Seatbelt Use: always Sunscreen Use: Yes (sometimes) Assistive Devices: Cane and Walker Review of Systems A total of 10 systems reviewed and were otherwise negative All systems reviewed & are unremarkable except as noted in HPI & below Physical Exam Vital Signs Vital Signs - 24 hr 06/28/21 23:14 Temperature 36.4 C L Temperature Source Oral Pulse Rate 68 Respiratory Rate 20 Respiratory Depth Normal Blood Pressure 132/68 Blood Pressure Mean 89 Pulse Oximetry 97 Oxygen Delivery Method Room Air Sepsis Recent Fever Within 48 Hours No Sepsis New/Unexplained Change in Mental Status N/A Sepsis Action Taken by Nursing No Action Required GENERAL: alert, well appearing, well nourished, no distress, non-toxic EYE EXAM: normal conjunctiva, PERRL and EOM's grossly intact OROPHARYNX: no exudate, no erythema, lips, buccal mucosa, and tongue normal and mucous membranes are moist NECK: supple, no nuchal rigidity, no adenopathy, non-tender LUNGS: Clear to auscultation. Normal chest wall mechanics, no w/r/r HEART: no murmurs, S1 normal and S2 normal ABDOMEN: abdomen soft, mild tenderness with palpation of the lower abdomen, normo-active bowel sounds, no masses, no rebound or guarding. BACK: Back is symmetrical on inspection and there is no deformity, no midline tenderness, no CVA tenderness. SKIN: no rashes and no bruising UPPER EXTREMITIES: upper extremities are grossly normal. FROM, nml pulses b/l. LOWER EXTREMITIES: No pitting edema. FROM, nml pulses b/l. NEURO EXAM: Normal sensorium, cranial nerves II-XII grossly intact, normal sp eech, no gross weakness of arms, no gross weakness of legs. Gross sensation intact. Course Course 0202: Pt and family updated on results. CT pending. 0235: Bladder scan performed at bedside. >900 seen. Lozoya catheter placed. Administered Medications Discontinued Medications Aspirin (Aspirin 81 Mg Ectab) 81 mg PO QAM [facility] Stop: 07/29/21 10:14 Last Admin: 06/30/21 08:23 Dose: 81 mg Documented by: [id number] Admin: 06/29/21 11:20 Dose: 81 mg Documented by: [id number] Citalopram Hydrobromide (Citalopram 40 Mg Tab) 40 mg PO QAM [facility] Stop: 07/29/21 10:14 Last Admin: 06/30/21 08:24 Dose: 40 mg Documented by: [id number] Admin: 06/29/21 11:23 Dose: 40 mg Documented by: [id number] Famotidine (Famotidine 20 Mg Tab) 20 mg PO BID [facility] Stop: 07/29/21 10:14 Last Admin: 06/30/21 08:24 Dose: 20 mg Documented by: [id number] Admin: 06/29/21 20:15 Dose: 20 mg Documented by: [id number] Admin: 06/29/21 11:23 Dose: 20 mg Documented by: [id number] Hydralazine HCl (Hydralazine Hcl 25 Mg Tab) 25 mg PO TID [facility] Stop: 07/29/21 10:14 Last Admin: 06/30/21 14:02 Dose: 25 mg Documented by: [id number] Admin: 06/30/21 08:23 Dose: 25 mg Documented by: [id number] Admin: 06/29/21 20:16 Dose: 25 mg Documented by: [id number] Admin: 06/29/21 13:35 Dose: 25 mg Documented by: [id number] Admin: 06/29/21 11:22 Dose: 25 mg Documented by: [id number] Sodium Chloride (Nss 1000ml) 500 mls @ 999 mls/hr IV .Q31M ONE Stop: 06/29/21 00:00 Last Infusion: 06/29/21 00:56 Dose: 0 mls/hr Documented by: [id number] Admin: 06/29/21 00:10 Dose: 999 mls/hr Documented by: [id number] Acetaminophen (Ofirmev) 1,000 mg in 100 mls @ 400 mls/hr IV NOW STA Stop: 06/28/21 23:44 Last Infusion: 06/29/21 00:27 Dose: 0 mls/hr Documented by: [id number] Admin: 06/29/21 00:10 Dose: 400 mls/hr Documented by: [id number] Sodium Chloride (Nss 1000ml) 1,000 mls @ 80 mls/hr IV .[id number] [facility] Stop: 06/29/21 20:57 Last Infusion: 06/29/21 21:03 Dose: 0 mls/hr Documented by: [id number] Admin: 06/29/21 09:45 Dose: 80 mls/hr Documented by: [id number] Ceftriaxone Sodium 1,000 mg/ (Dextrose) 50 mls @ 100 mls/hr IV Q24H [facility]; Protocol Stop: 07/09/21 10:29 Last Infusion: 06/30/21 11:44 Dose: 0 mls/hr Documented by: [id number] Admin: 06/30/21 10:59 Dose: 100 mls/hr Documented by: [id number] Infusion: 06/29/21 13:26 Dose: 0 mls/hr Documented by: [id number] Admin: 06/29/21 11:23 Dose: 100 mls/hr Documented by: [id number] Metoprolol Succinate (Metoprolol Succ 25mg Ext Rel Tab) 25 mg PO QAM [facility] Stop: 07/29/21 10:14 Last Admin: 06/30/21 08:23 Dose: 25 mg Documented by: [id number] Admin: 06/29/21 11:21 Dose: 25 mg Documented by: [id number] Miscellaneous (Azelastine 205.5 Mcg (0.15 %) Vernon,Non-Aerosol - Order Awaiting Action) 1 ea N/A QS [facility] Stop: 07/29/21 15:59 Last Admin: 06/30/21 14:02 Dose: Not Given Documented by: [id number] Admin: 06/30/21 08:24 Dose: Not Given Documented by: [id number] Admin: 06/29/21 23:37 Dose: Not Given Documented by: [id number] Admin: 06/29/21 15:39 Dose: Not Given Documented by: [id number] Miscellaneous (Donepezil 23 Mg Tablet - Order Awaiting Action) 1 ea N/A [facility] Stop: 07/29/21 15:59 Last Admin: 06/30/21 14:03 Dose: Not Given Documented by: [id number] Admin: 06/30/21 08:23 Dose: Not Given Documented by: [id number] Admin: 06/29/21 23:38 Dose: Not Given Documented by: [id number] Admin: 06/29/21 15:39 Dose: Not Given Documented by: [id number] Missamanthaaneous (Lidocaine Patch Application - Pending Order) 1 ea N/A [facility] Stop: 07/29/21 15:59 Last Admin: 06/30/21 14:03 Dose: Not Given Documented by: [id number] Admin: 06/30/21 08:23 Dose: Not Given Documented by: [id number] Admin: 06/30/21 00:38 Dose: Not Given Documented by: [id number] Admin: 06/29/21 15:39 Dose: Not Given Documented by: [id number] Ondansetron HCl (Ondansetron Inj 2 Mg/Ml 2 Ml Vial) 4 mg IV NOW STA Stop: 06/28/21 23:31 Last Admin: 06/29/21 00:10 Dose: 4 mg Documented by: [id number] Polyethylene Glycol (Polyethylene (Miralax) 17 Gm Pack) 17 gm PO DAILY [facility] Stop: 07/30/21 08:59 Last Admin: 06/30/21 08:28 Dose: 17 gm Documented by: [id number] Saccharomyces Boulardii (Saccharomyces Boulardii 250 Mg Cap) 250 mg PO BID [facility] Stop: 07/29/21 10:14 Last Admin: 06/30/21 08:22 Dose: 250 mg Documented by: [id number] Admin: 06/29/21 20:16 Dose: 250 mg Documented by: [id number] Admin: 06/29/21 11:22 Dose: 250 mg Documented by: [id number] Tamsulosin HCl (Tamsulosin Hcl 0.4 Mg Cap) 0.4 mg PO NOW ONE Stop: 06/29/21 04:55 Last Admin: 06/29/21 05:08 Dose: 0.4 mg Documented by: [id number] Tamsulosin HCl (Tamsulosin Hcl 0.4 Mg Cap) 0.4 mg PO HS [facility] Stop: 07/29/21 20:59 Last Admin: 06/29/21 20:16 Dose: 0.4 mg Documented by: [id number] Medical Decision Making Differential Diagnosis Differential diagnoses includes but is not limited to gastritis, peptic ulcer disease, GERD, gallbladder disease, pancreatitis, small bowel obstruction, acute coronary syndrome, pericarditis, ischemic bowel, irritable bowel disease, irritable bowel syndrome, appendicitis, diverticulitis, malignancy, hernia, urinary tract infection, torsion, [/ectopic (if female)], perforation, trauma, infectious. Medical Records Attestation: I reviewed the patient's medical records. Home Medications Current Medication List: was personally reviewed by me Laboratory Data Attestation: I reviewed the patient's lab results. Result diagrams: 06/30/21 08:17 06/30/21 08:17 Lab Results 06/29/21 06/29/21 06/29/21 Range/Units 00:00 00:00 00:15 WBC 3.71 L (4.8-10.8) K/uL RBC 3.54 L (4.7-6.1) M/uL Hgb 11.6 L (14.0-18.0) g/dL Hct 34.8 L (42-52) % MCV 98.3 (80-100) fL MCH 32.8 (25-34) pg MCHC 33.3 (32-36) g/dL RDW Std Deviation 50.3 H (36.4-46.3) fL RDW Coeff of Reilly 14.0 (11.5-14.5) % Plt Count 149 (130-400) K/uL MPV 9.4 (7.4-10.4) fL Immature Gran % (Auto) 0.0 % Neut % (Auto) 68.9 % Lymph % (Auto) 20.5 % Eaton % (Auto) 9.2 % Eos % (Auto) 1.1 % Baso % (Auto) 0.3 % Neut # (Auto) 2.56 (1.4-6.5) K/uL Lymph # (Auto) 0.76 L (1.2-3.4) K/uL Eaton # (Auto) 0.34 (0.11-0.59) K/uL Eos # (Auto) 0.04 (0-0.5) K/uL Baso # (Auto) 0.01 (0-0.2) K/uL Immature Gran # (Auto) 0.00 (0.00-0.02) K/uL Sodium 135 L (136-145) mmol/L Potassium 4.6 (3.5-5.1) mmol/L Chloride 104 (98-107) mmol/L Carbon Dioxide 25 (21-32) mmol/L Anion Gap 6.0 (3-11) BUN 33 H (7-18) mg/dl Creatinine 2.11 H (0.6-1.4) mg/dl Est Cr Clr Drug Dosing 24.5 ml/min Est GFR ( Amer) 31.2 ml/min Est GFR (Non-Af Amer) 26.9 ml/min BUN/Creatinine Ratio 15.8 (10-20) Glucose 101 H (70-99) mg/dl Calcium 8.9 (8.5-10.1) mg/dl Total Bilirubin 0.7 (0.2-1) mg/dl AST 64 H (15-37) U/L ALT 89 H (12-78) U/L Alkaline Phosphatase 109 (45-117) U/L Troponin I < 0.015 (0-0.045) ng/ml Total Protein 6.7 (6.4-8.2) gm/dl Albumin 3.5 (3.4-5.0) gm/dl Globulin 3.2 (2.5-4.0) gm/dl Albumin/Globulin Ratio 1.1 (0.9-2) Lipase 264 (73-393) U/L Urine Color Yellow Urine Appearance Clear (Clear) Urine pH 5.0 (4.5-7.5) Ur Specific Seward 1.009 (1.000-1.030) Urine Protein Negative (Negative) Urine Glucose (UA) Negative (Negative) Urine Ketones Negative (Negative) Urine Blood Negative (Negative) Urine Nitrite Negative (Negative) Urine Bilirubin Negative (Negative) Urine Urobilinogen Negative (Negative) Ur Leukocyte Esterase Negative (Negative) COVID-19 Eval Order SARS-CoV-2 (PCR) (Negative) 06/29/21 06/29/21 Range/Units 04:30 04:30 WBC (4.8-10.8) K/uL RBC (4.7-6.1) M/uL Hgb (14.0-18.0) g/dL Hct (42-52) % MCV (80-100) fL MCH (25-34) pg MCHC (32-36) g/dL RDW Std Deviation (36.4-46.3) fL RDW Coeff of Reilly (11.5-14.5) % Plt Count (130-400) K/uL MPV (7.4-10.4) fL Immature Gran % (Auto) % Neut % (Auto) % Lymph % (Auto) % Eaton % (Auto) % Eos % (Auto) % Baso % (Auto) % Neut # (Auto) (1.4-6.5) K/uL Lymph # (Auto) (1.2-3.4) K/uL Eaton # (Auto) (0.11-0.59) K/uL Eos # (Auto) (0-0.5) K/uL Baso # (Auto) (0-0.2) K/uL Immature Gran # (Auto) (0.00-0.02) K/uL Sodium (136-145) mmol/L Potassium (3.5-5.1) mmol/L Chloride (98-107) mmol/L Carbon Dioxide (21-32) mmol/L Anion Gap (3-11) BUN (7-18) mg/dl Creatinine (0.6-1.4) mg/dl Est Cr Clr Drug Dosing ml/min Est GFR ( Amer) ml/min Est GFR (Non-Af Amer) ml/min BUN/Creatinine Ratio (10-20) Glucose (70-99) mg/dl Calcium (8.5-10.1) mg/dl Total Bilirubin (0.2-1) mg/dl AST (15-37) U/L ALT (12-78) U/L Alkaline Phosphatase (45-117) U/L Troponin I (0-0.045) ng/ml Total Protein (6.4-8.2) gm/dl Albumin (3.4-5.0) gm/dl Globulin (2.5-4.0) gm/dl Albumin/Globulin Ratio (0.9-2) Lipase (73-393) U/L Urine Color Urine Appearance (Clear) Urine pH (4.5-7.5) Ur Specific [place] (1.000-1.030) Urine Protein (Negative) Urine Glucose (UA) (Negative) Urine Ketones (Negative) Urine Blood (Negative) Urine Nitrite (Negative) Urine Bilirubin (Negative) Urine Urobilinogen (Negative) Ur Leukocyte Esterase (Negative) COVID-19 Eval Order Covid19 at [facility] SARS-CoV-2 (PCR) NEGATIVE (Negative) Imaging Data Radiologist's Impression: CT abdomen pelvis without contrast: Direct comparison made to prior study of May 30, 2021. Liver spleen and pancreas appear normal. Gallbladder surgically absent. Stomach is mildly thickened but incompletely distended. Small bowel and large bowel appear normal. The appendix is not visualized. Adrenals kidneys and ureters appear normal. Bladder is mildly distended. Prostate is prominent measuring 6.0 x 5.3 cm. Vascular structures appear normal. There is no free peritoneal air or fluid. Impression: Mildly distended bladder possibly related to prostatic hypertrophy. Correlation with history and urinalysis recommended. Radiologist: Mak Bush MD MDM Narrative This is a well-appearing 89-year-old male who presented with abdominal pain. In the course of the evaluation, labs are drawn and sent, urine checked, patient was sent for CT imaging given recent procedure. Patient was afebrile and hemodynamically stable. While awaiting CT imaging, a bladder scan was performed which showed a large amount of urine. Lozoya catheter was placed with immediate drainage of approximately 1 L of clear yellow urine. No obvious blood or clots. Patient had immediate resolution of his lower abdominal pain. Unfortunately likely patient with a postobstructive acute kidney injury as the creatinine is markedly elevated compared to prior. No obvious evidence of infection on UA. Rest of the patient's CT is read by the overnight radiologist is unremarkable. Due to patient's advanced age, recent procedure, risk of infection and new VIMAL, case discussed with hospitalist for additional evaluation management. Gentle IV fluid rehydration was started. Patient continued to be well-appearing in the emergency room. An order was placed for continuous cardiac monitoring. The monitor shows a rate of _70_ with _normal sinus_ rhythm. Impression & Plan Abdominal pain, Acute kidney injury, Acute urinary retention Discharge Plan Visit Data Chief Complaint: Abdominal Pain Stated Complaint: ABDOMINAL PAIN (RECENT BILE STENT REMOVAL) ED Provider: Dian Rajan Discharge Problem: Abdominal pain, Acute kidney injury, Acute urinary retention Patient Disposition: Admitted As Inpatient Discharge Instructions Interventions: ED Discharge Assessment Last Done: 06/29/21 08:15 Discharge Problem: Abdominal pain Qualifiers: Abdominal location: lower abdomen, unspecified Qualified Code(s): R10.30 - Lower abdominal pain, unspecified
[2021-06-29] MEDS ORDERED: TAMSULOSIN HCL 0.4 MG CAP PO ONE (04:54)
--- NOTE | 2021-06-29 05:14 | History & Physical Report ---
Date of Service June 29, 2021 Assessment & Plan (1) Urinary retention: Plan: Acute urinary retention/BPH with LUTS- Continue Lozoya catheter placed in the ED Give tamsulosin 0.4 mg p.o. now and then at bedtime Unclear reason for acute urinary retention, as has not occurred in the past. Patient did undergo CBD stent removal yesterday. We will hold tramadol as a potential causative/aggravating agent Follow urine culture and sensitivity Ceftriaxone 1 g IV daily Consult urology (2) BPH (benign prostatic hyperplasia): Plan: See above (3) Acute kidney injury superimposed on CKD: Plan: Creatinine 2.11 upon admission, with previous baseline 1.36 Continue Lozoya catheter Hold lisinopril NSS at 80 mils per hour x2 L Repeat laboratories every morning Likely postobstructive (4) Atrial flutter: Plan: Atrial flutter/chronic apixaban use/hypertension- Continue metoprolol succinate and hydralazine Apixaban has been on hold since procedure for CBD stent removal. We will need to determine date Eliquis can be restarted (5) Anticoagulant long-term use: Plan: See above (6) Depression: Plan: Depression/dementia- Continue donepezil (7) GERD (gastroesophageal reflux disease): Plan: Continue famotidine (8) Anxiety: Plan: Continue citalopram (9) Hypertension: Plan: See above History of Present Illness Chief Complaint: The patient presents to the emergency department with his daughter, with complaint of difficulty urinating and progressively worsening pelvic and abdominal discomfort over the past 24 hours. Primary Care Provider: DESI Mir The patient is an 89-year-old male with a past medical story eluding cervical spine DJD, presyncope, recurrent falls, atrial flutter, long-term anticoagulant use, depression, UTI, occlusion of left foot border, acute pancreatitis this, hypertension, GERD, anxiety, PE PA with LUTS, CKD 3, dyslipidemia, mild ELIANA, osteoarthritis and myofascial pain. Patient is status post CBD stent removal on 06/27 without complication. In the emergency department this evening, he had a Lozoya catheter placed, which to this point has drained [address] scan abdomen pelvis showed a surgically absent gallbladder. Bladder is mildly distended. Prostate is prominent measuring 6.0 x 5.3 cm.. Impression- mildly distended urinary bladder possibly related to prostatic hypertrophy. Abnormal laboratories: Hemoglobin 11.6, hematocrit 34.8, creatinine 2.11, BUN 33, AST 64, ALT 89. Patient did receive 500 cc normal saline, Tylenol 1 g IV and Zofran 4 mg IV from the ED. We started him on tamsulosin 0.4 mg with first dose now, and then at bedtime. Lozoya catheter will be continued. Allergies Allergy/AdvReac Type Severity Reaction Status Date / Time vancomycin Allergy Intermediate LOWER Verified 06/29/21 01:41 EXTREMITY SWELLING, FEVER Sulfa (Sulfonamide Allergy Mild Rash Verified 06/29/21 01:41 Antibiotics) gabapentin AdvReac Mild drowsy,conf Verified 06/29/21 01:41 used adhesive AdvReac peña tears Verified 06/29/21 01:41 Home Medications Medication Instructions Recorded Confirmed Type cranberry 500 mg capsule 1,000 mg PO QAM 05/31/19 06/29/21 History citalopram 40 mg tablet 40 mg PO QAM #90 tab 08/26/20 06/29/21 Rx lidocaine 5 % topical patch 1 patch TRANSDERMAL QAM PRN ea 01/21/21 06/29/21 History hydralazine 25 mg tablet 25 mg PO TID 04/08/21 06/29/21 History donepezil 23 mg tablet 23 mg PO HS 04/12/21 06/29/21 History metoprolol succinate 25 mg 25 mg PO QAM 04/18/21 06/29/21 History tablet,extended release 24 hr Saccharomyces boulardii 250 mg 250 mg PO BID #10 cap 04/20/21 06/29/21 Rx capsule (Florastor) acetaminophen 500 mg capsule 1,000 mg PO TID PRN #0 cap 04/20/21 06/29/21 Rx famotidine 20 mg tablet 20 mg PO BID #180 tab 05/13/21 06/29/21 Rx aspirin 81 mg tablet,delayed 81 mg PO QAM #30 tab 06/03/21 06/29/21 Rx release meclizine 25 mg tablet 25 mg PO Q6 PRN #20 tab 06/03/21 06/29/21 Rx tramadol 50 mg tablet 50 mg PO BID PRN #20 tab 06/10/21 06/29/21 Rx lisinopril 10 mg tablet 10 mg PO QAM 06/23/21 06/29/21 History apixaban 2.5 mg tablet (Eliquis) 2.5 mg PO .HOLD 06/29/21 06/29/21 History azelastine 205.5 mcg (0.15 %) 1 spray INTRANASAL BID PRN 06/29/21 06/29/21 History nasal spray Past Med/Surg History Medical History Abdominal pain, acute, left lower quadrant VIMAL (acute kidney injury) Anxiety Atrial flutter DX OCT 2020> ELIQUIS/METOPROLOL 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 BPH (benign prostatic hyperplasia) Cervical facet joint syndrome Cervical radicular pain Cervical spinal stenosis Left C7 and 8 paresthesias Cervicogenic headache CKD (chronic kidney disease) stage 3, GFR 30-59 ml/min follows PCP Diverticulitis Dyslipidemia GERD (gastroesophageal reflux disease) CONTROLLED Headache Hearing difficulty History of kidney stones Hypertension Impaired fasting glucose Hgb A1C 6.8 on 04/11/20 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 not using due to recall cpap Myofascial pain Nocturnal hypoxemia Occipital neuralgia of left side Osteoarthritis Pancreatitis last episode in 05/2021 Surgical History H/O colonoscopy (06/2013) History of cystoscopy History of difficult intubation CHOLECYSTECTOMY= 01/11/14= GLIDESCOPE #4 (2/2 DECREASED CERVICAL ROM) BUT HAD GRADE VIEW 1, MAC 4 WITH ANKLE SURGERY 11/09/14 PER [facility] RECORDS History of esophagogastroduodenoscopy (EGD) (09/2019) History of shoulder surgery Rt shoulder - 09/22/18 [facility] History of total knee replacement B/L WITH REVISIONS; LEFT TKA REVISION= 05/13/17= SAB X 2 ATTEMPTS + PNB AT [facility] Hx of cervical spine surgery ROM LIMITED FROM SIDE TO SIDE Hx of total ankle replacement RIGHT S/P cholecystectomy S/P ERCP 04/20/21 Dr. Pablo Garibay- 2 stones removed, 2 stents placed Squamous cell carcinoma of back resolved Family History Son Family history of diabetes mellitus Other No family history of adverse response to anesthesia No pertinent family history Denies family history of Ovarian cancer Prostate cancer Myocardial infarction Breast cancer Colorectal cancer Social History Smoking Status: Never smoker Second Hand Exposure: No; Hx Alcohol Use: No Hx Substance Use: No Preferred Language: Bulgarian Communication Ability: Effective Visual Impairment: No Limitations Terminal Carman Required: No Beliefs That Will Affect Care: None marital status: Current Living Situation: Spouse Current Living Situation Comment: Lives with , caregivers current occupational status: retired 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 Feels Safe at Home: Yes Childhood Exposure to Second-Hand Smoke: No caffeine: Yes Dental Care, Regularly: Yes Physical Activity Frequency: Daily Seatbelt Use: always Sunscreen Use: Yes (sometimes) Assistive Devices: Glasses and Hearing Aid - Bilateral Review of Systems Review of Systems: The patient denies chest pain, palpitations, shortness of breath, dyspnea on exertion, cough, lower extremity swelling, sore throat, fevers, chills, sweats, nausea, vomiting, diarrhea , constipation, blood in urine or stool, lightheadedness, dizziness, headache, memory loss, loss of consciousness, rash, abnormal bruising or bleeding, imbalance, focal or generalized weakness, numbness or tingling in arms or legs, generalized arthralgias or myalgias, back or neck pain, or night sweats. The review of systems is otherwise negative other than for that already noted above, and at least 10 systems have been reviewed. Physical Exam Physical Exam: The patient is awake, alert and oriented 3, well developed and well nourished, normocephalic and atraumatic, lying in bed and in no acute dis tress. HEENT--PERRL, EOMI, mucous membranes and oropharynx dry. Neck--supple. No JVD. No bruits. Thyroid normal, trachea midline, no adenopathy. Heart--normal S1 and S2. No murmurs, rubs or gallops. Lungs--clear bilaterally, no respiratory distress, no accessory muscle use. Abdomen--normal bowel sounds and soft. Nontender. Nondistended, no hernias or masses, no organomegaly. Extremities--no cyanosis or clubbing. No edema. Dermatologic--normal skin turgor, normal color, no abnormal lymph nodes, no rash. Neurologic--cranial nerves II through XII grossly intact. Rheumatologic--normal range of motion. Psychiatric--normal affect. Results & Data Results & Data ([facility]) Vital Signs (Past 12 Hours) Vital Signs Temp Pulse Resp BP Pulse Ox 06/28/21 23:14 97.5 F L 68 20 132/68 97 Laboratory Results Laboratory Results WBC 3.71 K/uL (4.8-10.8) L 06/29/21 00:00 RBC 3.54 M/uL (4.7-6.1) L 06/29/21 00:00 Hgb 11.6 g/dL (14.0-18.0) L 06/29/21 00:00 Hct 34.8 % (42-52) L 06/29/21 00:00 MCV 98.3 fL (80-100) 06/29/21 00:00 MCH 32.8 pg (25-34) 06/29/21 00:00 MCHC 33.3 g/dL (32-36) 06/29/21 00:00 RDW Std Deviation 50.3 fL (36.4-46.3) H 06/29/21 00:00 RDW Coeff of [place] 14.0 % (11.5-14.5) 06/29/21 00:00 Plt Count 149 K/uL (130-400) 06/29/21 00:00 MPV 9.4 fL (7.4-10.4) 06/29/21 00:00 Immature Gran % (Auto) 0.0 % 06/29/21 00:00 Neut % (Auto) 68.9 % 06/29/21 00:00 Lymph % (Auto) 20.5 % 06/29/21 00:00 [place] % (Auto) 9.2 % 06/29/21 00:00 Eos % (Auto) 1.1 % 06/29/21 00:00 Baso % (Auto) 0.3 % 06/29/21 00:00 Neut # (Auto) 2.56 K/uL (1.4-6.5) 06/29/21 00:00 Lymph # (Auto) 0.76 K/uL (1.2-3.4) L 06/29/21 00:00 [place] # (Auto) 0.34 K/uL (0.11-0.59) 06/29/21 00:00 Eos # (Auto) 0.04 K/uL (0-0.5) 06/29/21 00:00 Baso # (Auto) 0.01 K/uL (0-0.2) 06/29/21 00:00 Immature Gran # (Auto) 0.00 K/uL (0.00-0.02) 06/29/21 00:00 Sodium 135 mmol/L (136-145) L 06/29/21 00:00 Potassium 4.6 mmol/L (3.5-5.1) 06/29/21 00:00 Chloride 104 mmol/L (98-107) 06/29/21 00:00 Carbon Dioxide 25 mmol/L (21-32) 06/29/21 00:00 Anion Gap 6.0 (3-11) 06/29/21 00:00 BUN 33 mg/dl (7-18) H 06/29/21 00:00 Creatinine 2.11 mg/dl (0.6-1.4) H 06/29/21 00:00 Est Cr Clr Drug Dosing 24.5 ml/min 06/29/21 00:00 Est GFR ( Amer) 31.2 ml/min 06/29/21 00:00 Est GFR (Non-Af Amer) 26.9 ml/min 06/29/21 00:00 BUN/Creatinine Ratio 15.8 (10-20) 06/29/21 00:00 Glucose 101 mg/dl (70-99) H 06/29/21 00:00 Calcium 8.9 mg/dl (8.5-10.1) 06/29/21 00:00 Total Bilirubin 0.7 mg/dl (0.2-1) 06/29/21 00:00 AST 64 U/L (15-37) H 06/29/21 00:00 ALT 89 U/L (12-78) H 06/29/21 00:00 Alkaline Phosphatase 109 U/L (45-117) 06/29/21 00:00 Troponin I < 0.015 ng/ml (0-0.045) 06/29/21 00:00 Total Protein 6.7 gm/dl (6.4-8.2) 06/29/21 00:00 Albumin 3.5 gm/dl (3.4-5.0) 06/29/21 00:00 Globulin 3.2 gm/dl (2.5-4.0) 06/29/21 00:00 Albumin/Globulin Ratio 1.1 (0.9-2) 06/29/21 00:00 Lipase 264 U/L (73-393) 06/29/21 00:00 Urine Color Yellow 06/29/21 00:15 Urine Appearance Clear (Clear) 06/29/21 00:15 Urine pH 5.0 (4.5-7.5) 06/29/21 00:15 Ur Specific [place] 1.009 (1.000-1.030) 06/29/21 00:15 Urine Protein Negative (Negative) 06/29/21 00:15 Urine Glucose (UA) Negative (Negative) 06/29/21 00:15 Urine Ketones Negative (Negative) 06/29/21 00:15 Urine Blood Negative (Negative) 06/29/21 00:15 Urine Nitrite Negative (Negative) 06/29/21 00:15 Urine Bilirubin Negative (Negative) 06/29/21 00:15 Urine Urobilinogen Negative (Negative) 06/29/21 00:15 Ur Leukocyte Esterase Negative (Negative) 06/29/21 00:15 COVID-19 Eval Order Covid19 at [facility] 06/29/21 04:[address] [facility] Patient: Makenna SERRANO (Male) : 34 Status: ER Date: 06/29/21 01:32 Room #: History: low abd pain urinary sx appen removed Slices: [phone] Priors: Tech: Demetris Choe @ [phone] Exams: CT ABDOMEN & PELVIS Without Contrast Contrast: Accession Numbers: [id number] Referring Physician: REFERRED SELF Preliminary Findings Only See Final Report For Complete Findings CT ABDOMEN & PELVIS Without Contrast: Direct comparison made to prior study of May 30, 2021. Liver spleen and pancreas appear normal. Gallbladder is surgically absent. Stomach is mildly thickened but incompletely distended. Small bowel and large bowel appear normal. The appendix is not visualized. Adrenals kidneys and ureters appear normal. Bladder is mildly distended. Prostate is prominent measuring 6.0 x 5.3 cm. Vascular structures appear normal. There is no free peritoneal air or fluid. Impression: Mildly distended bladder possibly related to prostatic hypertrophy. Correlation with history and urinalysis recommended. Radiologist: Mak Bush MD Study ready at 01:37 and initial results transmitted at 02:51 *This report constitutes a preliminary interpretation only. Non-acute findings felt to be unrelated to the clinical presentation may not be discussed in this report. The study will be interpreted and a final report will be generated by the local Radiologist the following shift. To reach the hospital radiology department call [phone]. If a discrepancy is found between the preliminary and final interpretations of this study, please notify us via our Client Portal at [email or web address] QA [email or web address].You can also fax this report with a description of the discrepancy, or include the final report, to our daytime fax number [phone].If faxing, please indicate the severity of discrepancy using one of the following categories: [ ] 1 - Agree/Informational [ ] 2 - Unlikely to Affect Management [ ] 3 - Possible Eventual Change of Management [ ] 4 - Probable Immediate Change of Management For all other patient related information, please fax us at [phone]. Code Status & VTE Plan Code Status Full code VTE Prophylaxis Plan VTE Prophylaxis will be ordered: Yes PG Care Time/CCT Total # of Minutes Spent Total Time Spent with Patient: Total time spent is greater than 50% in coordination of care (as documented) at patient's floor/unit and/or counseling patient: Coding Level of Care Code 06488 Initial Inpt Care Lvl 3 Diagnoses Urinary retention R33.9 Acute kidney injury superimposed on CKD N17.9; N18.9 Atrial flutter I48.3 Atrial flutter type: typical Anticoagulant long-term use Z79.01 Depression F32.9 GERD (gastroesophageal reflux disease) K21.9 Esophagitis presence: esophagitis presence not specified Anxiety F41.9 BPH (benign prostatic hyperplasia) N40.0 Lower urinary tract symptom presence: symptoms absent Hypertension I10 Hypertension type: essential hypertension (1) Atrial flutter Atrial flutter type: typical Qualified Code(s): I48.3 - Typical atrial flutter (2) GERD (gastroesophageal reflux disease) Esophagitis presence: esophagitis presence not specified Qualified Code(s): K21.9 - Gastro-esophageal reflux disease without esophagitis (3) BPH (benign prostatic hyperplasia) Lower urinary tract symptom presence: symptoms absent Qualified Code(s): N40.0 - Benign prostatic hyperplasia without lower urinary tract symptoms (4) Hypertension Hypertension type: essential hypertension Qualified Code(s): I10 - Essential (primary) hypertension
--- NOTE | 2021-06-29 07:44 | CT Scan Report ---
CT OF THE ABDOMEN AND PELVIS WITHOUT CONTRAST CLINICAL HISTORY: lower abd pain, urinary sx COMPARISON STUDY: CT of the abdomen and MRCP May 30, 2021. TECHNIQUE: Axial images of the abdomen and pelvis were obtained without IV contrast. Images were revi ewed in the axial, sagittal, and coronal planes. Automated exposure control was utilized for the leah dy. A dose lowering technique was utilized adhering to the principles of ALARA. FINDINGS: Lung bases are unremarkable. No pneumatosis, free air or portal venous gas is present. Ther e is no biliary ductal dilatation status post cholecystectomy. Bladder is distended. The prostate is enlarged. Slight prominence of both collecting systems is likely due to bladder distention. There are no urinary calculi. Evaluation of the abdomen and pelvis is suboptimal on this unenhanced exam. The spleen, adrenal glands and pancreas are unremarkable. There is no evidence for a bowel obstruction. T here is extensive left colon diverticulosis without evidence for acute diverticulitis. The appendix i s not visualized. No acute fracture or suspicious lesion is identified within the visualized skeletal structures. There is no lymphadenopathy. IMPRESSION: 1. No urinary calculi. Prominent collecting systems likely related to bladder distention. Enlarged pr ostate. 2. No bowel obstruction. No bowel wall thickening. 3. Extensive left colon diverticulosis without evidence for acute diverticulitis. ACT 112: Negative or not required by law. Electronically signed by: Donny Hu M.D. 06/29/2021 7:43 AM
[2021-06-29] MEDS ORDERED: MECLIZINE HCL 25MG HOME PACK PO PRN (08:28)
[2021-06-29] MEDS ORDERED: ACETAMINOPHEN 325 MG TAB PO PRN (08:28)
[2021-06-29] MEDS ORDERED: SODIUM CHLORIDE 0.9% 1000ML 1,000 ML IV SCH (08:28)
[2021-06-29] MEDS ORDERED: ONDANSETRON INJ 2 MG/ML 2 ML VIAL IV PRN (08:28)
--- NOTE | 2021-06-29 09:02 | Urology Consultation ---
Date of Consultation June 29, 2021 Assessment & Plan (1) Urinary retention: (2) BPH (benign prostatic hyperplasia): 89-year-old male who presented in urinary retention following a GI procedure on 06/27/2021 1. Urinary retention is likely a result of anesthesia superimposed on enlarged prostate and bladder outlet obstruction. Continue Lozoya catheter drainage and Flomax. 2. Recommend urine culture to rule out infection 3. Bowel regimen to prevent any constipation while in the hospital 4. Catheter will likely need to stay in place for 5 to 7 days. Urology will schedule outpatient follow-up for a void trial. 5. Trend creatinine. Based on CT scan, not related to obstructive process. 6. Urology to sign off. Please call us with any further questions or concerns. History of Present Illness Reason for Consultation: Urinary retention Attending Physician: Ruy Phan MD History of Present Illness 89-year-old male who is known to the urology team as he follows with Dr. Lyle for BPH with lower urinary tract symptoms. He was last seen by Dr. Lyle on 02/18/2021 at that time he was doing well and a 1 year follow-up was scheduled. He underwent a GI procedure on 06/27/2021 and discharged home. He noticed that his urinary symptoms worsened and came in last night when he was unable to void. He does describe that he reported increased frequency urgency and decreased emptying prior to the procedure which was then likely exacerbated by anesthesia. Lozoya catheter was placed in the emergency department. CT scan showed a distended bladder but no hydronephrosis. Labs did not reveal any white count however his creatinine was noted to be elevated at 2.11 from a baseline of 1.36. Urinalysis was nonconcerning for any infection. He was given Flomax and admitted to the hospitalist service. He denies any recent urinary tract infections or symptoms of constipation. Allergies Allergy/AdvReac Type Severity Reaction Status Date / Time vancomycin Allergy Intermediate LOWER Verified 06/29/21 01:41 EXTREMITY SWELLING, FEVER Sulfa (Sulfonamide Allergy Mild Rash Verified 06/29/21 01:41 Antibiotics) gabapentin AdvReac Mild drowsy,conf Verified 06/29/21 01:41 used adhesive AdvReac peña tears Verified 06/29/21 01:41 Home Medications Medication Instructions Recorded Confirmed Type cranberry 500 mg capsule 1,000 mg PO QAM 05/31/19 06/29/21 History citalopram 40 mg tablet 40 mg PO QAM #90 tab 08/26/20 06/29/21 Rx lidocaine 5 % topical patch 1 patch TRANSDERMAL QAM PRN ea 01/21/21 06/29/21 History hydralazine 25 mg tablet 25 mg PO TID 04/08/21 06/29/21 History donepezil 23 mg tablet 23 mg PO HS 04/12/21 06/29/21 History metoprolol succinate 25 mg 25 mg PO QAM 04/18/21 06/29/21 History tablet,extended release 24 hr Saccharomyces boulardii 250 mg 250 mg PO BID #10 cap 04/20/21 06/29/21 Rx capsule (Florastor) acetaminophen 500 mg capsule 1,000 mg PO TID PRN #0 cap 04/20/21 06/29/21 Rx famotidine 20 mg tablet 20 mg PO BID #180 tab 05/13/21 06/29/21 Rx aspirin 81 mg tablet,delayed 81 mg PO QAM #30 tab 06/03/21 06/29/21 Rx release meclizine 25 mg tablet 25 mg PO Q6 PRN #20 tab 06/03/21 06/29/21 Rx tramadol 50 mg tablet 50 mg PO BID PRN #20 tab 06/10/21 06/29/21 Rx lisinopril 10 mg tablet 10 mg PO QAM 06/23/21 06/29/21 History apixaban 2.5 mg tablet (Eliquis) 2.5 mg PO .HOLD 06/29/21 06/29/21 History azelastine 205.5 mcg (0.15 %) 1 spray INTRANASAL BID PRN 06/29/21 06/29/21 History nasal spray Patient History Medical History Abdominal pain, acute, left lower quadrant VIMAL (acute kidney injury) Anxiety Atrial flutter DX OCT 2020> ELIQUIS/METOPROLOL 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 BPH (benign prostatic hyperplasia) Cervical facet joint syndrome Cervical radicular pain Cervical spinal stenosis Left C7 and 8 paresthesias Cervicogenic headache CKD (chronic kidney disease) stage 3, GFR 30-59 ml/min follows PCP Diverticulitis Dyslipidemia GERD (gastroesophageal reflux disease) CONTROLLED Headache Hearing difficulty History of kidney stones Hypertension Impaired fasting glucose Hgb A1C 6.8 on 04/11/20 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 not using due to recall cpap Myofascial pain Nocturnal hypoxemia Occipital neuralgia of left side Osteoarthritis Pancreatitis last episode in 05/2021 Surgical History H/O colonoscopy (06/2013) History of cystoscopy History of difficult intubation CHOLECYSTECTOMY= 01/11/14= GLIDESCOPE #4 (2/2 DECREASED CERVICAL ROM) BUT HAD GRADE VIEW 1, MAC 4 WITH ANKLE SURGERY 11/09/14 PER [facility] RECORDS History of esophagogastroduodenoscopy (EGD) (09/2019) History of shoulder surgery Rt shoulder - 09/22/18 [facility] History of total knee replacement B/L WITH REVISIONS; LEFT TKA REVISION= 05/13/17= SAB X 2 ATTEMPTS + PNB AT [facility] Hx of cervical spine surgery ROM LIMITED FROM SIDE TO SIDE Hx of total ankle replacement RIGHT S/P cholecystectomy S/P ERCP 04/20/21 Dr. Pablo Garibay- 2 stones removed, 2 stents placed Squamous cell carcinoma of back resolved Family History Son Family history of diabetes mellitus Other No family history of adverse response to anesthesia No pertinent family history Denies family history of Ovarian cancer Prostate cancer Myocardial infarction Breast cancer Colorectal cancer Social History Smoking Status: Never smoker Second Hand Exposure: No; Hx Alcohol Use: No Hx Substance Use: No Preferred Language: Andorran Communication Ability: Effective Visual Impairment: No Limitations Certified Alcohol Drug Counselor Required: No Beliefs That Will Affect Care: None marital status: Current Living Situation: Spouse Current Living Situation Comment: Lives with , caregivers 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 occupational status: 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 Feels Safe at Home: Yes Childhood Exposure to Second-Hand Smoke: No caffeine: Yes Dental Care, Regularly: Yes Physical Activity Frequency: Daily Seatbelt Use: always Sunscreen Use: Yes (sometimes) Assistive Devices: Glasses and Hearing Aid - Bilateral Review of Systems Review of Systems: 14 point review of systems negative outside of what is listed above in HPI Physical Exam Physical Exam: General: Alert and oriented, no acute distress HEENT: Normocephalic, mucous membranes moist Cardiovascular: Regular rate Pulmonary: Nonlabored respirations Abdomen: Nondistended : Uncircumcised phallus with orthotopic meatus. Lozoya catheter in place, draining clear yellow urine. Extremities: Moves all 4 spontaneously Neuro: No gross deficits Skin: Warm, dry, no rashes noted Results & Data ([facility]) Vital Signs (Past 12 Hours) Vital Signs Temp Pulse Pulse Resp BP BP Pulse Ox 06/29/21 08:34 36.9 C 69 137/73 96 06/29/21 08:15 36.4 C L 72 18 127/73 96 06/29/21 05:10 65 18 127/73 96 06/28/21 23:14 36.4 C L 68 20 132/68 97 PG Care Time/CCT Total # of Minutes Spent Total Time Spent with Patient: Total time spent is greater than 50% in coordination of care (as documented) at patient's floor/unit and/or counseling patient: C[place] [address] Inpt Consult Level 5 Patient Type Established History Expanded Problem Focused Exam Expanded Problem Focused Medical Decision Making Low Complexity Diagnoses Urinary retention R33.9 BPH (benign prostatic hyperplasia) N40.0 Lower urinary tract symptom presence: symptoms absent (1) BPH (benign prostatic hyperplasia) Lower urinary tract symptom presence: symptoms absent Qualified Code(s): N40.0 - Benign prostatic hyperplasia without lower urinary tract symptoms
[2021-06-29] MEDS ORDERED: LIDOCAINE 5% 1 PATCH TD PRN (10:15)
[2021-06-29] MEDS ORDERED: MECLIZINE HCL 25 MG TAB PO PRN (10:48)
[2021-06-29] MEDS: ASPIRIN 81 MG ECTAB PO SCH (11:20)
[2021-06-29] MEDS: METOPROLOL SUCC 25MG EXT REL TAB PO SCH (11:21)
[2021-06-29] MEDS: SACCHAROMYCES BOULARDII 250 MG CAP PO SCH ×2 (11:22→20:16)
[2021-06-29] MEDS: hydrALAZINE HCL 25 MG TAB PO SCH ×3 (11:22→20:16)
[2021-06-29] MEDS: cefTRIAXone SODIUM 1,000 MG in DEXTROSE 5% 50 ML IV SCH (11:23)
[2021-06-29] MEDS: CITALOPRAM 40 MG TAB PO SCH (11:23)
[2021-06-29] MEDS: FAMOTIDINE 20 MG TAB PO SCH ×2 (11:23→20:15)
--- NOTE | 2021-06-29 14:17 | Communication Note ---
Date of Service: June 29, 2021 Mr. Desir is an 89-year-old white male well-known to me from his prior hospitalizations. He has a PMHx of atrial flutter on chronic anticoagulation therapy, HTN, history of PE, stage III CKD, HLD, ELIANA, anxiety, and most recently choledocholithiasis with subsequent gallstone pancreatitis. He had several recent hospitalizations due to pancreatitis and subsequently had an ERCP with stent placement. Stent removed on 06/27 and he had an uneventful perioperative course. On the evening of 917 and 918, he was having trouble voiding. This led to progr essive suprapubic discomfort prompting him to seek medical attention. His lab data was unremarkable. Lipase was normal at 267. CT showed a distended bladder. Lozoya catheter was placed yielding 1800 cc residual. Patient was hospitalized and started on Flomax. Lozoya catheter kept in place. Given 1 dose of IV Rocephin. His urinalysis is not grossly infected but his urine culture is pending. He does not have a fever or leukocytosis. General: Resting comfortably in his hospital bed. Pleasant and in no acute distress HEENT: Head is AT/NC buccal mucosa is moist and pink Neck: No JVD. Negative hepatojugular reflex Cardiac: RRR Lungs: CTA without W/R/R Abdomen: Normoactive X4. Soft and nontender in all quadrants. Extremities: No peripheral clubbing cyanosis or edema Neuro: A&O X4 cranial nerves II through XII are grossly intact no focal neuro deficits Skin: No obvious skin lesions or rashes Psych: Appropriate affect pleasant and cooperative A/P: 1. Urinary retentionlikely anesthesia induced with presumed underlying BPH * Patient reports that his abdominal discomfort has completely resolved with insertion of the Lozoya catheter * He has been seen by urology who is recommending Lozoya remain in place for 5 to 7 days with the addition of Flomax and will see in follow-up to start of void trials * Suspect with his age he does have underlying BPH and with recent anesthesia, likely now with postoperative urinary retention * A urine culture was obtained. His urinalysis is not grossly infected so I would not suspect him to have a UTI; however, culture data pending. He does have a history of multidrug-resistant UTI. Hold off on any further antibiotics for now as he does not have a fever, leukocytosis, and his urinalysis is not grossly infected. We will add a procalcitonin * At any rate, he is stable for discharge at this time. He did not get a room assignment until early this morning and currently does not have a ride as his just left * I have attempted calling his daughter but she did not answer. * D/C to home later today or tomorrow when he has a ride
--- NOTE | 2021-06-29 20:36 | Electrocardiogram Report ---
Test Reason : Blood Pressure : / mmHG Vent. Rate : 067 BPM Atrial Rate : 067 BPM P-R Int : 150 ms QRS Dur : 132 ms QT Int : 440 ms P-R-T Axes : 049 -30 071 degrees QTc Int : 464 ms Sinus rhythm with occasional Premature ventricular complexes Left axis deviation Right bundle branch block Septal infarct , age undetermined Lateral infarct (cited on or before 28-JUN-2021) Abnormal ECG When compared with ECG of 29-MAY-2021 19:38, Septal infarct is now Present T wave inversion now evident in Anterior leads Confirmed by Khang Pederson ([id number]) on 06/29/2021 8:36:10 PM Referred By: REFERRED SELF Confirmed By:Khang Pederson
[2021-06-29] MEDS ORDERED: TAMSULOSIN HCL 0.4 MG CAP PO SCH (21:00)
--- NOTE | 2021-06-30 08:08 | Hospitalist Progress Note ---
Date of Service June 30, 2021 Assessment & Plan Admission and Anticipated Discharge Date Admission Date: June 29, 2021 Results & Data Results & Data ([facility]) Vital Signs (Past 12 Hours) Vital Signs Temp Pulse Pulse Resp BP Pulse Ox 06/30/21 07:40 36.6 C 71 20 117/68 95 06/30/21 03:53 36.7 C 74 18 115/64 93 06/29/21 23:00 77 06/29/21 22:57 37.1 C 79 19 108/63 93
[2021-06-30] MEDS: SACCHAROMYCES BOULARDII 250 MG CAP PO SCH (08:22)
[2021-06-30] MEDS: hydrALAZINE HCL 25 MG TAB PO SCH ×2 (08:23→14:02)
[2021-06-30] MEDS: ASPIRIN 81 MG ECTAB PO SCH (08:23)
[2021-06-30] MEDS: METOPROLOL SUCC 25MG EXT REL TAB PO SCH (08:23)
[2021-06-30] MEDS: FAMOTIDINE 20 MG TAB PO SCH (08:24)
[2021-06-30] MEDS: CITALOPRAM 40 MG TAB PO SCH (08:24)
[2021-06-30 08:44] LABS: Eosinophils # (auto) 0.03 K/uL (0-0.5); Eosinophils % (auto) 1.1 %; Hematocrit (blood only) 33.8 % (42-52); Lymphocytes # (auto) 0.68 K/uL (1.2-3.4); Lymphocytes % (auto) 25.3 %; Mean Corpuscular Hemoglobin 32.3 pg (25-34); Mean Corpuscular Hgb Conc 32.5 g/dL (32-36); Mean Corpuscular Volume 99.1 fL (80-100); Mean Platelet Volume 9.8 fL (7.4-10.4); Monocytes # (auto) 0.26 K/uL (0.11-0.59); Monocytes % (auto) 9.7 %; Neutrophils # (auto) 1.72 K/uL (1.4-6.5); Neutrophils % (auto) 63.9 %; Platelet Count 152 K/uL (130-400); RDW Coefficient of Variation 14.1 % (11.5-14.5); Red Blood Count 3.41 M/uL (4.7-6.1); White Blood Count 2.69 K/uL (4.8-10.8)
[2021-06-30] MEDS ORDERED: POLYETHYLENE (MIRALAX) 17 GM PACK PO SCH (09:00)
[2021-06-30 09:21] LABS: Albumin Level 3.1 gm/dl (3.4-5.0); BUN Creatinine Ratio 12.5 (10-20); Calcium 8.8 mg/dl (8.5-10.1); Creatinine Clr Calc Pharmacy 31.1 ml/min; Est GFR (African American) 41.7 ml/min; Magnesium 2.3 mg/dl (1.8-2.4); Potassium 4.6 mmol/L (3.5-5.1)
[2021-06-30 09:24] LABS: Bilirubin,Total 0.5 mg/dl (0.2-1); Globulin 3.1 gm/dl (2.5-4.0); Total Protein 6.2 gm/dl (6.4-8.2)
[2021-06-30] MEDS: cefTRIAXone SODIUM 1,000 MG in DEXTROSE 5% 50 ML IV SCH (10:59)
--- NOTE | 2021-06-30 14:20 | Discharge Summary ---
Date of Service June 30, 2021 Admission HPI Per Admitting Provider The patient is an 89-year-old male with a past medical story eluding cervical spine DJD, presyncope, recurrent falls, atrial flutter, long-term anticoagulant use, depression, UTI, occlusion of left foot border, acute pancreatitis this, hypertension, GERD, anxiety, PE PA with LUTS, CKD 3, dyslipidemia, mild ELIANA, osteoarthritis and myofascial pain. Patient is status post CBD stent removal on 06/27 without complication. In the emergency department this evening, he had a Lozoya catheter placed, which to this point has drained [address] scan abdomen pelvis showed a surgically absent gallbladder. Bladder is mil dly distended. Prostate is prominent measuring 6.0 x 5.3 cm.. Impression-mildly distended urinary bladder possibly related to prostatic hypertrophy. Abnormal laboratories: Hemoglobin 11.6, hematocrit 34.8, creatinine 2.11, BUN 33, AST 64, ALT 89. Patient did receive 500 cc normal saline, Tylenol 1 g IV and Zofran 4 mg IV from the ED. We started him on tamsulosin 0.4 mg with first dose now, and then at bedtime. Lozoya catheter will be continued. Principal Diagnosis Acute urinary retention Discharge Exam GENERAL: A&Ox3. NAD. HEENT: EOMI. Moist mucous membranes. CHEST/LUNGS: CTAB A/P. No crackles, wheezes, rales, ronchi. HEART: RRR. No m/g/r. No carotid bruits. ABDOMEN: NT/ND, soft. BS+ x4 SKIN: Warm and dry. No rashes or lesions. PSYCHIATRIC: Euthymic affect, no SI, no pressured speech, no hallucinations Discharge Data Allergies Allergy/AdvReac Type Severity Reaction Status Date / Time vancomycin Allergy Intermediate LOWER Verified 06/29/21 01:41 EXTREMITY SWELLING, FEVER Sulfa (Sulfonamide Allergy Mild Rash Verified 06/29/21 01:41 Antibiotics) gabapentin AdvReac Mild drowsy,conf Verified 06/29/21 01:41 used adhesive AdvReac peña tears Verified 06/29/21 01:41 Consultations 06/29/21 04:36 ED Decision to Admit Stat 06/29/21 08:28 Consult Urology Routine Ordered Studies 06/29/21 00:44 CT abd pelvis wo con Urgent Hospital Course (1) Urinary retention: Mr. Serafin Desir is an 89-year-old male with past medical history of atrial flutter on long-term anticoagulation, BPH with LUTS, UTI, depression, anxiety, GERD, dyslipidemia, ELIANA, osteoarthritis who came to [facility] due to urinary retention after his recent CBD stent removal on 06/27. After Lozoya catheter placement the bladder drained about 1800 cc in the emergency department. He was subsequently evaluated by urology who recommended continuation of this Lozoya catheter for a total of 5 to 7 days. He will follow- up with urology as an outpatient for a voiding trial and possible removal of the Lozoya catheter. Additionally, a urine culture was taken upon admission, which was negative at 24 hours at time of discharge. Nonetheless, while awaiting culture results the patient received 2 doses of ceftriaxone 1 g IV. Since his urine culture is negative thus far, he will be discharged with no further antibiotic treatment. Patient also had an acute kidney injury with a creatinine of 2.11 on admission, with a previous baseline around 1.3. At time of discharge, patient's creatinine was downtrending. Consider repeat BMP in outpatient setting to verify complete resolution. Encourage p.o. intake at home. Additionally, the patient's Eliquis had been held since his CBD stent removal. At time of discharge we will recommend that he restart his usual home dosing of Eliquis due to his atrial flutter with high risk of clotting. All other chronic medications were continued per home dosing. Continue at discharge. (2) Acute kidney injury superimposed on CKD: Total Time Total Time Spent Total Time Spent (In Minutes): See attending attestation Discharge Plan Discharge Items Patient Disposition: Home - Self-Care Reason For Visit: BPH/LUTS, URINARY RETENTION, VIMAL ON CKD Discharge Diagnosis: Urinary retention, BPH/LUTS, VIMAL on CKD Activity: Per Instructions section Non-emergency contact: Primary Care Provider and Urologist Call non-emergency contact if: you have any medication questions and your symptoms worsen Follow-up/Referrals: Sally Schaeffer CRNP [Primary Care Provider] - 07/08/21 10:30 am Diet: Heart Healthy Addtl Attending Provider Instructions: You were admitted to [facility] due to urinary retention. This was thought to occur secondary to anesthesia after your recent procedure. While admitted youy were seen by urology, who recommended that you continue with a Lozoya catheter to drain your urine for 5-7 total days. Per their recommendat ions, you will follow up with them as an outpatient for removal of this and trial of voiding on your own. Additionally, you were treated with intravenous antibiotics for the possibility of a urinary infection. However, urine culture resulted with no infection and, as such, your antibiotics will be discontinued. Please continue to take all your home medications as usual once you are discharged. Follow up with your PCP and Urologist as scheduled. Please return to hospital if you develop any worsening signs or symptoms. Pending Studies at Discharge: No Stand-Alone Forms: My [facility], Smoking Cessation Medications and DC Order Prescriptions: Continued citalopram 40 mg tablet 40 mg PO QAM Qty: 90 RF: 3 famotidine 20 mg tablet 20 mg PO BID Qty: 180 RF: 3 hydralazine 25 mg tablet 25 mg PO TID RF: 0 lidocaine 5 % adhesive patch,medicated 1 patch transdermal QAM PRN (Reason: Pain) RF: 0 tramadol 50 mg tablet 50 mg PO BID PRN (Reason: pain) Qty: 20 RF: 0 cranberry 500 mg capsule 1,000 mg PO QAM RF: 0 lisinopril 10 mg tablet 10 mg PO QAM RF: 0 aspirin 81 mg Tablet,Delayed Release (Dr/Ec) 81 mg PO QAM Qty: 30 RF: 0 meclizine 25 mg Tablet 25 mg PO Q6 PRN (Reason: dizziness) Qty: 20 RF: 0 donepezil 23 mg tablet 23 mg PO HS RF: 0 metoprolol succinate 25 mg tablet extended release 24 hr 25 mg PO QAM RF: 0 Saccharomyces boulardii [Florastor] 250 mg Capsule 250 mg PO BID Qty: 10 RF: 0 acetaminophen 500 mg capsule 1,000 mg PO TID PRN (Reason: pain) Qty: 0 RF: 0 azelastine 205.5 mcg (0.15 %) spray,non-aerosol 1 spray intranasal BID PRN (Reason: allergies) RF: 0 Eliquis 2.5 mg tablet 2.5 mg PO .HOLD RF: 0 Discharge Orders: Discharge Order (Routine); Ordered 06/30/21 Ordered By: Tung Coyle/Other Patient Handouts: Emptying and Cleaning Your ..., Discharge Instructions Caring for ... Admission Data Admit Date/Time: 06/29/21 04:58 Attending Provider: Emilia Willis Admit Provider: Ruy Phan Primary Care Provider: Sally Schaeffer Other Providers: Ruy Phan ; Gerson Early Other Interventions: Discharge Summary Assessment (RN) Last Done: 06/30/21 14:51 Supervising Physician Co-Signing Physician Notes Resident Physician Supervision Note: I independently interviewed and examined the patient and verified the haynes history and physical, reviewed labs and image studies and agree with resident Dr. Grace findings and care plan. Resident Activity Tracking Resident Involvement: Resident Care Provided Care Provided: Adult Hospital Medicine
== END 2021-06-30 15:32 | disposition home or self-care (01) | DRG 699 ==
LOC: ED 23:06 → 2W 06-29 04:58 → SUATTDRO 06-29 04:58 → 2W 06-29 08:15

== ENCOUNTER 2022-03-26 06:36 | Inpatient (IN) ==
--- NOTE | 2022-03-19 12:09 | Anesthesiology Consultation ---
Date of Service March 19, 2022 Assessment & Plan (1) Encounter for pre-operative examination: Chart Review Chart Review: Acceptable Risk for Surgery (pending anesthesia evaluation DOS ) and Patient NOT seen in Pre Admission Testing - Check BSG AM DOS (hx of impaired fasting glucose) - Hx of questionable dissection on 05/2021 neck CTA- initially neuro was going to repeat CTA in 08/2021 but pt had head CT done and neuro cancelled the repeat CTA. Per records- pt was deemed acceptable risk for TURP in 09/2021 (TURP never did occur yet- pt rescheduled due to bed availability and then tested Covid positive 01/2022). Discussed with Dr. Maciel- as long as patient is not having new neurological symptoms- pt can proceed as scheduled. Spoke with patient's daughter- patient has chronic headaches (unchanged)- no dizziness or syncope issues. Per nursing assessment 03/19/2022, patient denies any recent travel. Patient is fully vaccinated for COVID. No known Covid positive exposures or Covid related symptoms. Pt did test Covid positive 01/22/22 at [facility]. Pt had fatigue and headache- symptoms have since resolved. Per 90 day protocol- pt does not need repeat preop Covid testing or additional Covid contact precautions Patient was seen by cardiology 03/11/2022 = scheduled for laparoscopic sigmoid resectioncan achieve 4 METS without shortness of breath or chest discomfort. Reviewed EKG from Januaryunchanged from previous. His NSQIP risk for cardiac complication perioperatively calculates to 3% which is significantly above the average of 0.4%. Discussed with patient. He does not require further testing before proceeding with surgery. He can hold Eliquis 48 hours in advance of surgery and resume as soon as surgery is comfortable doing so. Follow-up in 4 months. Per PCP [facility] Communication note (prior to TURP that was scheduled January 2022 but cancelled due to Covid positive test)= "Mr Desir is overall stable, even though he has many underlying medical conditions. Generally speaking, he is cleared for surgery however, I will leave final decision up to anesthesiologist." Right reverse TSA 09/22/2018 = done under [facility] with grade 1 view with Maciel #2. ETT #8. No anesthesia issues noted per anesthesia record. History Surgery Operation Date: 03/26/22 07:15 Proposed Procedures p Laparoscopic Sigmoid Colectomy - Honorio Castro, Height/Weight Height: 5 ft 8 in Weight: 81.647 kg Allergies Allergy/AdvReac Type Severity Reaction Status Date / Time Sulfa (Sulfonamide Allergy Intermediate Rash Verified 03/05/22 14:18 Antibiotics) vancomycin Allergy Intermediate LOWER Verified 03/05/22 14:18 EXTREMITY SWELLING, FEVER adhesive AdvReac Mild sKin Verified 03/05/22 14:18 tears-WITH TAPE gabapentin AdvReac Mild drowsy,conf Verified 03/05/22 14:18 used Medications Home Medications Medication Instructions Recorded Confirmed Last Taken cranberry 500 mg capsule 1,000 mg PO QAM 05/31/19 03/19/22 02/23/22 08:00 lidocaine 5 % topical patch 1 patch TRANSDERMAL UD PRN ea 01/21/21 03/19/22 05/21/21 hydralazine 25 mg tablet 25 mg PO TID 04/08/21 03/19/22 02/23/22 22:00 metoprolol succinate 25 mg 25 mg PO QAM 04/18/21 03/19/22 02/24/22 06:00 tablet,extended release 24 hr aspirin 81 mg tablet,delayed 81 mg PO QAM #30 tab 06/03/21 03/19/22 02/23/22 08:00 release apixaban 2.5 mg tablet (Eliquis) 2.5 mg PO BID tab 07/08/21 03/19/22 02/23/22 08:00 acetaminophen 500 mg capsule 1,000 mg PO TID 08/21/21 03/19/22 02/23/22 22:00 alfuzosin 10 mg tablet,extended 10 mg PO QPM 08/21/21 03/19/22 02/23/22 22:00 release 24 hr citalopram 40 mg tablet 40 mg PO QAM #90 tab 08/28/21 03/19/22 02/24/22 06:00 Saccharomyces boulardii 250 mg 250 mg PO QAM cap 11/24/21 03/19/22 02/23/22 capsule (Florastor) donepezil 23 mg tablet 23 mg PO HS #90 tab 12/12/21 03/19/22 02/23/22 22:00 azelastine 205.5 mcg (0.15 %) 2 spray INTRANASAL UD PRN 01/19/22 03/19/22 Unknown nasal spray meclizine 25 mg tablet 25 mg PO UD PRN 01/19/22 03/19/22 Unknown lisinopril 10 mg tablet 20 mg PO BID tab 02/12/22 03/19/22 02/23/22 22:00 pantoprazole 40 mg tablet,delayed 40 mg PO BID #180 tab 02/12/22 03/19/22 02/24/22 06:00 release tramadol 50 mg tablet 25 - 50 mg PO UD PRN #30 tab 03/02/22 03/19/22 Unknown Past Medical History Medical History (Updated 03/19/22 @ 16:07 by Jennifer Peters PA-C) Anxiety Atrial flutter DX OCT 2020> ELIQUIS/METOPROLOL -F/U DR POLI MEDEROS 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 BPH (benign prostatic hyperplasia) Cervical facet joint syndrome Cervical spinal stenosis Left C7 and 8 paresthesias CKD (chronic kidney disease) stage 3, GFR 30-59 ml/min follows PCP Diastolic heart failure Dyslipidemia GERD (gastroesophageal reflux disease) CONTROLLED Hearing difficulty History of COVID-19 01/22/22 tested at [facility] > headache, fatigue > resolved, no more symptoms History of kidney stones History of pancreatitis Last episode 05/2021 Hypertension Impaired fasting glucose Hgb A1C 6.8 on 11/25/20 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, HAS HARD TIME COMPREHENDING INFORMATION Nocturnal hypoxemia Occipital neuralgia of left side Sleep apnea CPAP Past Family History Family History Son Family history of diabetes mellitus Daughter Family history of diabetes mellitus Other No family history of adverse response to anesthesia No pertinent family history Denies family history of Ovarian cancer Prostate cancer Myocardial infarction Breast cancer Colorectal cancer Past Surgical History Surgical History H/O colonoscopy (06/2013) 02/2022 History of cystoscopy History of difficult intubation CHOLECYSTECTOMY= 01/11/14= GLIDESCOPE #4 (2/2 DECREASED CERVICAL ROM) BUT HAD GRADE VIEW 1, MAC 4 WITH ANKLE SURGERY 11/09/14 PER [facility] RECORDS History of esophagogastroduodenoscopy (EGD) (09/2019) History of shoulder surgery Rt shoulder - 09/22/18 [facility] History of total knee replacement B/L WITH REVISIONS; LEFT TKA REVISION= 05/13/17= SAB X 2 ATTEMPTS + PNB AT [facility] Hx of cervical spine surgery ROM LIMITED FROM SIDE TO SIDE Hx of total ankle replacement RIGHT S/P cholecystectomy S/P ERCP 04/20/21 Dr. Pablo Garibay- 2 stones removed, 2 stents placed Squamous cell carcinoma of back resolved Social History Smoking Status: Never smoker Do You Dip or Chew Tobacco: No Hx Alcohol Use: No Hx Substance Use: No substance use type: does not use Lab Results Anesthesia Preop Results Results Anesthesia Widget: WBC 2.72 K/uL (4.8-10.8) L 02/09/22 Hgb 11.8 g/dL (14.0-18.0) L 02/09/22 Hct 36.5 % (42-52) L 02/09/22 Plt 228 K/uL (130-400) 02/09/22 Na 139 mmol/L (136-145) 02/20/22 K 4.2 mmol/L (3.5-5.1) 02/20/22 Cl 104 mmol/L (98-107) 02/20/22 CO2 29 mmol/L (21-32) 02/20/22 BUN 22 mg/dl (6-23) 02/20/22 Creat 1.38 mg/dl (0.6-1.4) 02/20/22 Glucose Level 115 mg/dl (70-99(Fasting)) H 02/20/22 PT 10.6 Seconds (9.0-12.0) 01/26/22 PTT 28.8 Seconds (21.0-31.0) 01/26/22 INR 1.0 (0.9-1.1) 01/26/22 Urine Color Yellow 02/09/22 Urine Appearance Clear (Clear) 02/09/22 Urine pH 5.5 (4.5-7.5) 02/09/22 Urine Specific [place] 1.018 (1.000-1.030) 02/09/22 Urine Protein 2+ (Negative) H 02/09/22 Urine Glucose (UA) Negative (Negative) 02/09/22 Urine Ketones Negative (Negative) 02/09/22 Urine Blood Negative (Negative) 02/09/22 Urine Nitrite Negative (Negative) 02/09/22 Urine Bilirubin Negative (Negative) 02/09/22 Urine Urobilinogen Negative (Negative) 02/09/22 Urine Leukocyte Esterase Negative (Negative) 02/09/22 Urine WBC (Auto) 0 /hpf (0-5) 02/09/22 Urine RBC (Auto) 0-4 /hpf (0-4) 02/09/22 Urine Hyaline Casts (Auto) 0 /lpf (0-5) 02/09/22 Urine Epithelial Cells (Auto) 5-10 /lpf (0-5) H 02/09/22 Urine Bacteria (Auto) Negative (Negative) 02/09/22 Testing Laboratory Results Leukopenia- chronic and stable 02/09/22= URINE CULTURE: No growth Electrocardiogram Date: 01/26/22 Poor data quality Normal sinus rhythm at 70 bpm. Left axis deviation. Right bundle branch block. Moderate voltage criteria for LVH may be normal variant. When compared to EKG from January 22, 2022no significant changes found per cardio. Chest X-Ray Date:05/29/21 Findings:+ NAD Cardiac silhouette is upper limits of normal in size. Chronic right hemidiaphragmatic elevation Echocardiogram Small, under filled left ventricle. Normal LV systolic function with no regional wall motion abnormalities. Biplane ejection fraction is 70%. Left ventricle cavity obliteration at end systole is seen. minimal mid cavitary gradient. Asymmetric LV hypertrophy involving the septum 1.5 cm. Normal left ventricular posterior wall. 0.97 cm. There is grade I diastolic dysfunction of the left ventricle (impaired relaxation pattern) with elevated left atrial pressure. Aortic valve-calcified tricuspid aortic valve without stenosis. Mitral valve-severely calcified mitral valve annulus without stenosis. Mild mitral regurgitation. Trace tricuspid regurgitation. Normal atria. Normal RV size and function. Mild mitral regurgitation. Top normal estimated pulmonary artery pressure. (Cardio aware and monitoring- pt had ERCP/EUS in 04/2021 and ERCP with stent removal in Jun 2021 without noted issues; pt deemed acceptable risk for current procedure by cardio 03/11/22) Other Testing Head CT 01/26/2022 = no acute intracranial abnormality Abdomen/pelvis CT 01/26/2022 = no acute intra-abdominal or intrapelvic abnormality. Extensive colonic diverticulosis without acute diverticulitis. Prostamegaly with findings suggestive of chronic bladder outlet obstruction. Neck CTA 05/29/21=Questionable small intimal flap at the proximal aspect of the left internal carotid artery, appear more conspicuous than on prior study in 2019 and might represent developing dissection, however acuity is unknown. Report will be sent to emergency Department. 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 The right carotid revealed no evidence of aneurysm and no evidence of dissection. There is no evidence of hemodynamic significant stenosis. The left carotid revealed no evidence of hemodynamic significant stenosis. There is no evidence of aneurysm. (Neuro initially ordered repeat CTA but patient fell in 08/[address]- Dr Salazar reviewed and did not feel additional work up needed- CTA was cancelled and pt was approved to proceed with TURP per 09/09/21 [facility] Communication note) Head CTA 05/29/21= Mild atherosclerotic involvement within distal internal ca rotid arteries with approximately 50% stenosis within distal aspect of the right ICA. No significant stenosis or occlusion within intracranial arteries are seen.
[~2022-03-26 06:36] MED LIST changes: -ACET-24 PO; -CHOL2000 PO; +CIPROFLOXACIN / D5W 400 MG/200 ML BAG IV SCH; -CLX40 PO; -FELO5TAB PO; +LR 15ML/HR IV SCH; -OXYSR10 PO; -PRLSR20 PO; -RXC5 PO; -XRL10 PO; +metroNIDAZOLE 500 MG/100 ML BAG IV SCH
--- NOTE | 2022-03-26 07:42 | History & Physical Bridge Note ---
Date of Service March 26, 2022 History & Physical Bridge Note I have examined the patient, reviewed the History & Physical and in the interval since the performance of the History & Physical I have noted the following changes of clinical significance: no changes noted
[2022-03-26] MEDS ORDERED: fentaNYL citrate 100 MCG/2 ML VIAL ONE ×3 (08:34→11:16)
[2022-03-26] MEDS ORDERED: BUPIVACAINE 0.5 % 5 MG/1 ML MPF 30ML VIAL ONE (08:50)
[2022-03-26] MEDS ORDERED: EPINEPHrine INJ 1 MG/ML AMP ONE (08:50)
[2022-03-26] MEDS ORDERED: LABETALOL HCL IV 5 MG/ML 20ML IV PRN (08:56)
[2022-03-26] MEDS ORDERED: ONDANSETRON INJ 2 MG/ML 2 ML VIAL IV PRN (08:56)
[2022-03-26] MEDS ORDERED: PROMETHAZINE HCL 6.25 MG in SODIUM CHLORIDE 0.9% 50 ML IV PRN (08:56)
[2022-03-26] MEDS ORDERED: ATROPINE SULFATE 0.1 MG/ML 10ML SYR IV PRN (08:56)
[2022-03-26] MEDS ORDERED: NEOSTIGMINE METHYLSULFATE 1 MG/ML 10ML VIAL ONE (10:09)
[2022-03-26] MEDS ORDERED: GLYCOPYRROLATE 0.2 MG/ML VIAL ONE (10:09)
[2022-03-26] MEDS ORDERED: DEXAMETHASONE SOD INJ 4 MG/ML VIAL ONE (10:09)
[2022-03-26] MEDS ORDERED: LIDOCAINE 2% 2 ML VIAL/AMP(20MG/ML) INFIL ONE (10:09)
[2022-03-26] MEDS ORDERED: ROCURONIUM BROMIDE 10 MG/ML 5 ML VIAL IV ONE (10:09)
[2022-03-26] MEDS ORDERED: ONDANSETRON INJ 2 MG/ML 2 ML VIAL ONE (10:09)
[2022-03-26] MEDS ORDERED: PROPOFOL IV EMULSION 10 MG/ML 20 ML VIAL IV ONE (10:09)
--- NOTE | 2022-03-26 12:03 | Post Operative Brief Note ---
PG Immediate Post Op with CF Date of Surgery March 26, 2022 Pre & Post Diagnosis Operation Date: 03/26/22 08:45 Pre-Op Diagnosis: Sigmoid Colon Stricture Post-Op Diagnosis: Sigmoid Colon Stricture I identified the patient and participated in the time-out.: Yes Procedure Operation Date: 03/26/22 08:45 Actual Procedures p Laparoscopic Sigmoid Colectomy with enterolysis (Not Applicable) - Honorio Castro DO Surgeon Honorio Castro DO Core Paster cat Vargas Estimated Blood Loss 100 Findings Consistent with Post-Op Diagnosis Specimens Specimen Description: A. Sigmoid colon Drains Lozoya Catheter (16 cook islander 10mL balloon Lozoya inserted prior to begining of procedure by Keke Askew RN)
[2022-03-26] MEDS ORDERED: SUGAMMADEX SODIUM 200 MG/2 ML VIAL IV ONE (12:25)
[2022-03-26] MEDS: HYDROmorphone INJ 1 MG/ML SYRINGE IV PRN ×8 (12:52→13:46)
[2022-03-26] MEDS ORDERED: MoRPHine SULFATE 4 MG/ML 1 ML CARP\\VIAL IV PRN (14:33)
[2022-03-26] MEDS ORDERED: MoRPHine SULFATE 2 MG/ML CARP IV PRN (14:33)
--- NOTE | 2022-03-26 15:06 | Anesthesiology Progress Note ---
Date of Service March 26, 2022 Anesthesia Post Procedure Vital Signs Vital Signs: Temp Pulse Resp BP Pulse Ox 03/26/22 14:05 89 12 115/58 L 95 03/26/22 13:55 36.3 C L 87 12 123/57 L 95 03/26/22 13:45 89 12 132/60 94 03/26/22 13:35 89 15 129/64 94 03/26/22 13:25 91 H 18 143/75 H 93 03/26/22 13:15 83 17 149/80 H 93 03/26/22 13:05 84 17 130/68 94 03/26/22 12:55 84 16 163/76 H 94 03/26/22 12:45 85 18 164/81 H 96 03/26/22 12:35 83 18 160/78 H 97 03/26/22 12:25 88 21 156/75 H 96 03/26/22 12:19 36.2 C L 89 20 163/72 H 96 03/26/22 07:06 36.8 C 84 20 172/79 H 95 Pain Intensity Left Posterior Abdomen: Pain Intensity: 5 Abdomen: Pain Intensity: 4 Transfer of Care Handoff Completed per policy Notes Mental Status: alert / awake / arousable Patient Amnestic to Procedure: Yes Nausea / Vomiting: adequately controlled Pain: adequately controlled Airway Patency, RR, SpO2: stable & adequate BP & HR: stable & adequate Hydration State: stable & adequate Anesthetic Complications: no major complications apparent
[2022-03-26] MEDS: ACETAMINOPHEN 1,000 MG/100 ML VIAL IV SCH ×2 (15:37→23:39)
[2022-03-26] MEDS ORDERED: SODIUM CHLORIDE 0.9% 500 ML IV ONE (15:56)
--- NOTE | 2022-03-26 16:16 | Communication Note ---
Date of Service: March 26, 2022 Received call for BP 80/50 and pain Pain improved after given Ofirmev Some bloody drainage from VONNIE as expected, has not increased UOP 185 in PACU, minimal in past 2 hours, 1725 cc IVF given radu-op Abdomen nondistended, dressings dry Labs pending Suspect hypotension related to bowel prep Will give 500 cc NSS, ask Hospitalist to evaluate also
[2022-03-26 16:24] LABS: Basophils # (auto) 0.01 K/uL (0-0.2); Basophils % (auto) 0.1 %; Hematocrit (blood only) 31.1 % (42-52); Hemoglobin 10.2 g/dL (14.0-18.0); Immature Granulocytes # (auto) 0.02 K/uL (0.00-0.02); Immature Granulocytes % (auto) 0.2 %; Lymphocytes # (auto) 0.52 K/uL (1.2-3.4); Lymphocytes % (auto) 6.2 %; Mean Corpuscular Hemoglobin 31.3 pg (25-34); Mean Corpuscular Hgb Conc 32.8 g/dL (32-36); Mean Corpuscular Volume 95.4 fL (80-100); Mean Platelet Volume 9.1 fL (7.4-10.4); Monocytes # (auto) 0.99 K/uL (0.11-0.59); Monocytes % (auto) 11.8 %; Neutrophils # (auto) 6.83 K/uL (1.4-6.5); Neutrophils % (auto) 81.7 %; Platelet Count 215 K/uL (130-400); RDW Coefficient of Variation 13.9 % (11.5-14.5); RDW Standard Deviation 48.5 fL (36.4-46.3); Red Blood Count 3.26 M/uL (4.7-6.1); White Blood Count 8.37 K/uL (4.8-10.8)
[2022-03-26 16:52] LABS: BUN Creatinine Ratio 9.9 (10-20); Calcium 8.1 mg/dl (8.5-10.1); Creatinine Clr Calc Pharmacy 28.4 ml/min; Est GFR (African American) 37.3 ml/min; Est GFR (Non-African American) 32.2 ml/min; Potassium 5.1 mmol/L (3.5-5.1)
[2022-03-26] MEDS: metroNIDAZOLE 500 MG/100 ML BAG IV SCH (16:58)
--- NOTE | 2022-03-26 17:48 | Hospitalist Consultation ---
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 Castro on 03/26/2022 EBL 100 Patient on Cipro Flagyl per surgical team (2) Atrial flutter: Patient has a history of atrial flutter managed with Dr. Couch and at [facility] cardiology on metoprolol and Eliquis Eliquis is currently held metoprolol be continued Patient also typically on lisinopril 20 twice daily and hydralazine 25 3 times daily these are held as the patient has some lower postoperative blood pressures. Remains on IV fluid Patient unable to take p.o. postoperatively we will convert metoprolol to intravenous form if need be this may require telemetry monitoring. (3) Depression: Patient continues on Celexa when able to take p.o. (4) Dementia: Hospital patient was on Aricept once again this will be continued if patient is able to take oral medications. History of Present Illness Attending Physician: Honorio Castro, DO History of Present Illness 89-year-old male admitted for resection of sigmoid colon stricture as it was associated with abdominal pain and fecal incontinence. Medical issues include atrial flutter which has been in control typically managed with Dr. Flores also has had a recent COVID infection. He did receive cardiology evaluation preoperatively March 11 and was disclosed with Dr. Flores that he does have increased cardiac complication risk over average but the patient did not require any additional testing and was recommended to hold his Eliquis 48 hours in advance of the surgery and resume postoperatively as soon as comfortable. Allergies Allergy/AdvReac Type Severity Reaction Status Date / Time Sulfa (Sulfonamide Allergy Intermediate Rash Verified 03/26/22 07:01 Antibiotics) vancomycin Allergy Intermediate LOWER Verified 03/26/22 07:01 EXTREMITY SWELLING, FEVER adhesive AdvReac Mild sKin Verified 03/26/22 07:01 tears-WITH TAPE gabapentin AdvReac Mild drowsy,conf Verified 03/26/22 07:01 used Home Medications Medication Instructions Recorded Confirmed Type cranberry 500 mg capsule 1,000 mg PO QAM 05/31/19 03/26/22 History lidocaine 5 % topical patch 1 patch TRANSDERMAL UD PRN ea 01/21/21 03/26/22 History hydralazine 25 mg tablet 25 mg PO TID 04/08/21 03/26/22 History metoprolol succinate 25 mg 25 mg PO QAM 04/18/21 03/26/22 History tablet,extended release 24 hr aspirin 81 mg tablet,delayed 81 mg PO QAM #30 tab 06/03/21 03/26/22 Rx release apixaban 2.5 mg tablet (Eliquis) 2.5 mg PO BID tab 07/08/21 03/26/22 History acetaminophen 500 mg capsule 1,000 mg PO TID 08/21/21 03/26/22 History alfuzosin 10 mg tablet,extended 10 mg PO QPM 08/21/21 03/26/22 History release 24 hr Saccharomyces boulardii 250 mg 250 mg PO QAM cap 11/24/21 03/26/22 History capsule (Florastor) azelastine 205.5 mcg (0.15 %) 2 spray INTRANASAL UD PRN 01/19/22 03/26/22 History nasal spray meclizine 25 mg tablet 25 mg PO UD PRN 01/19/22 03/26/22 History lisinopril 10 mg tablet 20 mg PO BID tab 02/12/22 03/26/22 History pantoprazole 40 mg tablet,delayed 40 mg PO BID #180 tab 02/12/22 03/26/22 Rx release tramadol 50 mg tablet 25 - 50 mg PO UD PRN #30 tab 03/02/22 03/26/22 Rx citalopram 40 mg tablet (Celexa) 40 mg PO QAM 03/26/22 03/26/22 History donepezil 23 mg tablet (Aricept) 23 mg PO HS 03/26/22 03/26/22 History Patient History Medical History (Updated 03/27/22 @ 11:55 by Honorio Castro, ) Anxiety Atrial flutter DX OCT 2020> ELIQUIS/METOPROLOL -F/U DR POLI FLORES 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 BPH (benign prostatic hyperplasia) Cervical facet joint syndrome Cervical spinal stenosis Left C7 and 8 paresthesias CKD (chronic kidney disease) stage 3, GFR 30-59 ml/min follows PCP Diastolic heart failure Dyslipidemia GERD (gastroesophageal reflux disease) CONTROLLED Hearing difficulty History of COVID-19 01/22/22 tested at [facility] > headache, fatigue > resolved, no more symptoms History of kidney stones History of pancreatitis Last episode 05/2021 Hypertension Impaired fasting glucose Hgb A1C 6.8 on 11/25/20 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, HAS HARD TIME COMPREHENDING INFORMATION Nocturnal hypoxemia Occipital neuralgia of left side Sleep apnea CPAP Surgical History (Updated 03/27/22 @ 11:55 by Honorio Castro DO) H/O colonoscopy (06/2013) 02/2022 History of colon resection (03/26/22) Laparoscopic Sigmoid Colectomy with enterolysis (Not Applicable) - Honorio Castro DO History of cystoscopy History of difficult intubation CHOLECYSTECTOMY= 01/11/14= GLIDESCOPE #4 (2/2 DECREASED CERVICAL ROM) BUT HAD GRADE VIEW 1, MAC 4 WITH ANKLE SURGERY 11/09/14 PER [facility] RECORDS History of esophagogastroduodenoscopy (EGD) (09/2019) History of shoulder surgery Rt shoulder - 09/22/18 [facility] History of total knee replacement B/L WITH REVISIONS; LEFT TKA REVISION= 05/13/17= SAB X 2 ATTEMPTS + PNB AT [facility] Hx of cervical spine surgery ROM LIMITED FROM SIDE TO SIDE Hx of total ankle replacement RIGHT S/P cholecystectomy S/P ERCP 04/20/21 Dr. Pablo Garibay- 2 stones removed, 2 stents placed Squamous cell carcinoma of back resolved Family History Son Family history of diabetes mellitus Daughter Family history of diabetes mellitus Other No family history of adverse response to anesthesia No pertinent family history Denies family history of Ovarian cancer Prostate cancer Myocardial infarction Breast cancer Colorectal cancer Social History Smoking Status: Never smoker Second Hand Exposure: No; Do You Dip or Chew Tobacco: No; Tobacco Cessation Education Requested by Patient: No Hx Alcohol Use: No Hx Substance Use: No Preferred Language: Cymraes Communication Ability: Effective Visual Impairment: No Limitations Film Processing Utility Worker Required: No Beliefs That Will Affect Care: None marital status: Current Living Situation: Family Current Living Situation Comment: Lives with , caregivers current occupational status: retired 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 How many Children do You have: 3 Other Information That Helps Us Care for You: No Feels Safe at Home: Yes Safety Concerns: Feels Safe At This Time Childhood Exposure to Second-Hand Smoke: No caffeine: Yes during the past year weight has: decreased > 10 lbs Dental Care, Regularly: Yes Physical Activity Frequency: Daily Seatbelt Use: always Sunscreen Use: Yes (sometimes) Assistive Devices: None Assistive Devices Comment: INSTRUCTED TO BRING CPAP DOS Review of Systems Review of Systems: Mild distress and fatigue no headache, no visual changes no speech or swallowing issues no chest pain, pressure or palpitations no shortness of breath, cough or wheezes Mild inappropriate postoperative abdominal pain, without nausea or vomiting, diarrhea or constipation no dysuria, hematuria or frequency no focal joint pain or swelling no back pain, CVA tenderness or radicular pain no bruising, bleeding or rashes no focal signs of weakness or numbness or altered sensation no complaints of anxiety or depression.. Physical Exam Physical Exam: The patient appeared stable Vital signs as documented. Lungs are clear to auscultation and appear unlabored Cardiac exam, Rhythm is regular.. No murmurs, rubs or gallops. Abdominal exam reveals normal bowel sounds, soft non tender, no masses Extremities are nonedematous and both pedal pulses are normal. Neurologic exam is alert and oriented, no focal loss of strength or sensation Skin is without bruises or rashes Psychologically is without concerns for anxiety or depression. Results & Data Results & Data ([facility]) Vital Signs (Past 12 Hours) Vital Signs Temp Pulse Pulse Resp BP Pulse Ox 03/26/22 17:20 97.5 F L 72 18 101/61 97 03/26/22 16:20 97.5 F L 87 18 90/55 L 97 03/26/22 15:23 79/48 L 03/26/22 15:20 98.2 F 88 20 84/50 L 97 03/26/22 14:50 98.1 F 90 20 85/55 L 96 03/26/22 14:20 98.4 F 87 12 103/63 94 03/26/22 14:05 89 12 115/58 L 95 03/26/22 13:55 97.3 F L 87 12 123/57 L 95 03/26/22 13:45 89 12 132/60 94 03/26/22 13:35 89 15 129/64 94 03/26/22 13:25 91 H 18 143/75 H 93 03/26/22 13:15 83 17 149/80 H 93 03/26/22 13:05 84 17 130/68 94 03/26/22 12:55 84 16 163/76 H 94 03/26/22 12:45 85 18 164/81 H 96 03/26/22 12:35 83 18 160/78 H 97 03/26/22 12:25 88 21 156/75 H 96 03/26/22 12:19 97.2 F L 89 20 163/72 H 96 03/26/22 07:06 98.2 F 84 20 172/79 H 95 PG Care Time/CCT Total # of Minutes Spent Total Time Spent with Patient: Total time spent is greater than 50% in coordination of care (as documented) at patient's floor/unit and/or counseling patient: Coding Level of Care Code 73867 Inpt Consult Level 3 Diagnoses Atrial flutter I48.3 Atrial flutter type: typical Depression F32.9 Dementia F03.90 Dementia behavioral disturbance: without behavioral disturbance Dementia type: unspecified type Colonic stricture K56.699 (1) Atrial flutter Atrial flutter type: typical Qualified Code(s): I48.3 - Typical atrial flutter (2) Dementia Dementia behavioral disturbance: without behavioral disturbance Dementia type: unspecified type Qualified Code(s): F03.90 - Unspecified dementia without behavioral disturbance
[2022-03-26] MEDS ORDERED: ACETAMINOPHEN 1000 MG/100 ML IV IV ONE (18:07)
[2022-03-26] MEDS: LACTATED RINGER'S 1,000 ML IV SCH (18:47)
[2022-03-26] MEDS: CIPROFLOXACIN / D5W 400 MG/200 ML BAG IV SCH (20:55)
[2022-03-26] MEDS: DONEPEZIL HCL 10 MG TAB PO SCH (20:55)
[2022-03-26] MEDS: PANTOprazole 40 MG TAB PO SCH (20:55)
[2022-03-26] MEDS: ALFUZOSIN HCL 10 MG TAB PO SCH (20:58)
[2022-03-26] MEDS ORDERED: lisinopril 20 MG TAB PO SCH (21:00)
[2022-03-27] MEDS ORDERED: MoRPHine SULFATE 2 MG/ML CARP IV PRN (02:32)
[2022-03-27] MEDS: LACTATED RINGER'S 1,000 ML IV SCH ×2 (03:06→08:24)
[2022-03-27] MEDS: MoRPHine SULFATE 4 MG/ML 1 ML CARP\\VIAL IV PRN ×4 (04:36→21:51)
[2022-03-27] MEDS: ACETAMINOPHEN 1,000 MG/100 ML VIAL IV SCH ×3 (06:16→21:02)
[2022-03-27] MEDS: CIPROFLOXACIN / D5W 400 MG/200 ML BAG IV SCH (08:24)
[2022-03-27] MEDS: PANTOprazole 40 MG TAB PO SCH ×2 (08:28→20:56)
[2022-03-27] MEDS: CITALOPRAM 40 MG TAB PO SCH (08:28)
--- NOTE | 2022-03-27 08:42 | Operative Report ---
PG Post Operative Report Pre & Post Diagnosis Operation Date: 03/26/22 08:45 Pre-Op Diagnosis: Sigmoid Colon Stricture Post-Op Diagnosis: Sigmoid Colon Stricture I identified the patient and participated in the time-out.: Yes Procedure Operation Date: 03/26/22 08:45 Actual Procedures p Laparoscopic Sigmoid Colectomy with enterolysis (Not Applicable) - Honorio Castro DO Surgeon Honorio Castro DO Silo Operator cat Vargas Estimated Blood Loss 100 Findings Consistent with Post-Op Diagnosis Specimens sigmoid colon Description of Procedure After informed consent was obtained the patient was brought to the operating room and placed in supine position. After successful intubation a Lozoya catheter was placed sterilely. The abdomen was shaved. The patient was placed in a low lithotomy position. The entire abdomen and perineum were sterilely prepped and draped in usual fashion. I began with a periumbilical incision with an 11 blade scalpel. This was carried down through the soft tissue using cautery. The anterior rectus fascia was opened using electrocautery and two #0 Vicryl stay sutures were placed. Peritoneum was entered using blunt finger penetration and a finger sweep performed. A 12 mm Jennings trocar was placed and the abdomen was insufflated to 20 mmHg. The laparoscope was inserted and the abdomen was examined in 360 degrees. There were some adhesions in the lower abdomen. I was able to place a right lower quadrant 12 mm port and a right mid abdominal 5 mm port. Eventually we placed a left lower quadrant 5 mm port. I began by taking down these adhesions using traction and sharp scissor lysis. Once this was done I was able to place the patient in a Trendelenburg position and retract the small bowel into the upper abdomen. I was able to readily identify the tattoo markings by GI on the sigmoid colon. I began by mobilizing the left colon along the white line of Toldt. The section of colon between the tattoo markings was rather thickened and appeared to be consistent with chronic diverticulitis. I took the white line of Toldt up to the splenic flexure as well as distally past the peritoneal reflection. We were able to visualize the left ureter to keep it out of harm's way. Once I did this I then made a small window in the mesentery proximal to the proximal most tattoo. A ODETTE purple cartridge linear stapler was used to transect the colon. I then used the harmonic scalpel to take down the mesentery. This was carried down over the pelvic brim. The mesentery was also somewhat thickened. Once I was several centimeters past the distal-most tattoo I again used a ODETTE purple cartridge linear stapler to transect the colon. We then extended the left lower quadrant 5 m trocar including the fascia. We toweled off the wound and delivered the specimen and sent it to pathology. It was quite thickened. The large bowel proximal to this area was slightly dilated likely from the chronic stricture. We delivered the stapled end out through the same wound. 2-0 [address] was [address] to place a pursestring device. We then placed the anvil of a 28 mm circular stapler into the end and secured the pursestring. This was reduced back into the abdomen. The fascia was closed using 0 PDS in a running fashion. We then changed our gloves. I re-insufflated the abdomen. The anvil was able to easily lay over the pelvic brim without tension. We first brought in sizers followed by the handle of the EEA stapler into the rectal stump. The spike was deployed anterior to the staple line. It was connected to the anvil they were secured together and fired creating a circular functional end-to-end anastomosis. Both donuts were intact. We insufflated the anastomosis under water and it was in fact airtight. There was no ischemia and the anastomosis was not under tension. There was adequate hemostasis. I thoroughly irrigated the lower abdomen. A 10 flat Daniel-Morris drain was placed into the pelvis and brought out through the right lower quadrant trocar site and secured to the skin using 2-0 silk. A final look around the abdomen showed no other abnormalities. The trochars were all removed and the abdomen desufflated. The fascia of the camera port was closed using 0 Vicryl in a [id number] fashion. Wounds were all irrigated. The larger incision was closed using 3-0 Vicryl and 4-0 Monocryl and the smaller incisions were closed using 4-0 Monocryl. Arcane with epinephrine were injected around them for postoperative analgesia and skin glue used as dressings. Patient was awakened extubated and transferred recovery in stable condition. My physician assistant manager bilingual was present for the entire case. He was instrumental in running the camera as well as assisting with exposure for my dissection assisting with the anastomosis wound closure and dressing placement. I attest to the content of the Intraoperative Record and any orders documented therein. Any exceptions are noted below.
[2022-03-27 09:26] LABS: Hematocrit (blood only) 25.4 % (42-52); Hemoglobin 8.5 g/dL (14.0-18.0); Immature Granulocytes # (auto) 0.01 K/uL (0.00-0.02); Immature Granulocytes % (auto) 0.1 %; Lymphocytes # (auto) 0.87 K/uL (1.2-3.4); Mean Corpuscular Hemoglobin 32.2 pg (25-34); Mean Corpuscular Hgb Conc 33.5 g/dL (32-36); Mean Corpuscular Volume 96.2 fL (80-100); Mean Platelet Volume 8.9 fL (7.4-10.4); Monocytes # (auto) 0.82 K/uL (0.11-0.59); Monocytes % (auto) 11.3 %; Neutrophils # (auto) 5.53 K/uL (1.4-6.5); Neutrophils % (auto) 76.6 %; Platelet Count 181 K/uL (130-400); RDW Coefficient of Variation 13.8 % (11.5-14.5); RDW Standard Deviation 48.6 fL (36.4-46.3); Red Blood Count 2.64 M/uL (4.7-6.1); White Blood Count 7.23 K/uL (4.8-10.8)
[2022-03-27 09:30] LABS: BUN Creatinine Ratio 9.3 (10-20); Calcium 8.1 mg/dl (8.5-10.1); Creatinine Clr Calc Pharmacy 15.5 ml/min; Est GFR (Non-African American) 15.5 ml/min; Potassium 5.2 mmol/L (3.5-5.1)
[2022-03-27] MEDS: metroNIDAZOLE 500 MG/100 ML BAG IV SCH ×2 (09:55)
[2022-03-27] MEDS: METOPROLOL SUCC 25MG EXT REL TAB PO SCH (09:55)
--- NOTE | 2022-03-27 11:58 | Surgery Progress Note ---
Date of Service March 27, 2022 Assessment & Plan (1) History of colon resection: Plan: He is postoperative day #1 from a laparoscopic sigmoid colon resection for stricture. He is doing okay from a surgical perspective. He is in some acute renal failure. The colon prep before surgery likely contributing. We are gently rehydrating him. Internal medicine is on board. We will change his lactated Ringer's to normal saline. I will repeat his basic metabolic profile later this afternoon. We will continue to monitor his urine output and keep the Lozoya in place. We will start start clear liquids. (2) Colonic stricture: (3) Acute renal failure: Admission and Anticipated Discharge Date Admission Date: March 26, 2022 Subjective pt seen. Feeling okay. Having some expected back that incisional discomfort. No nausea. Physical Exam Physical Exam: Alert. No acute distress Abdomen is soft with expected tenderness. VONNIE drain with sanguinous output. Results & Data ([facility]) Vital Signs (Past 12 Hours) Vital Signs Temp Pulse Resp BP Pulse Ox 03/27/22 09:55 81 122/62 03/27/22 07:43 94 03/27/22 07:42 81 17 121/57 L 88 L 03/27/22 07:05 36.3 C L 74 16 114/57 L 92 03/27/22 03:25 36.5 C 65 18 121/64 97 PG Care Time/CCT Total # of Minutes Spent Total Time Spent with Patient: Total time spent is greater than 50% in coordination of care (as documented) at patient's floor/unit and/or counseling patient: Coding Level of Care Code None Diagnoses History of colon resection Z90.49 Colonic stricture K56.699 Acute renal failure N17.9
[2022-03-27] MEDS: SODIUM CHLORIDE 0.9% 1000ML 1,000 ML IV SCH ×2 (12:36→19:28)
[2022-03-27 14:30] LABS: Creatinine Clr Calc Pharmacy 16.1 ml/min; Est GFR (African American) 18.8 ml/min; Est GFR (Non-African American) 16.2 ml/min; Potassium 4.7 mmol/L (3.5-5.1)
[2022-03-27 14:31] LABS: BUN Creatinine Ratio 10.3 (10-20); Calcium 7.8 mg/dl (8.5-10.1)
--- NOTE | 2022-03-27 18:09 | Hospitalist Progress Note ---
Date of Service March 27, 2022 Assessment & Plan (1) Colonic stricture: Plan: Status post laparoscopic colectomy and enterolysis by Dr. Castro on 03/26/2022 EBL 100 Patient on Cipro Flagyl per surgical team (2) Acute renal failure: Plan: pt developed acute post op kidney injury, has stable elecrolytes, and bicarb, likely ATN from prerenal issue due to low blood pressure continue ivf, if not improving 03/28/22 check renal u/s for obstruction check ua for active sediment follow K and bicarb continue to hold ernie (3) Atrial flutter: Plan: Patient has a history of atrial flutter managed with Dr. Couch and at [facility] cardiology on metoprolol and Eliquis Eliquis is currently held metoprolol be continued Patient also typically on lisinopril 20 twice daily and hydralazine 25 3 times daily these are held as the patient has some lower postoperative blood pressures and garrett. Remains on IV fluid P (4) Depression: Plan: Patient continues on Celexa when able to take p.o. (5) Dementia: Plan: Hospital patient was on Aricept once again this will be continued if patient is able to take oral medications. Plan: POST OP ANEMIA FROM DILUTION Admission and Anticipated Discharge Date Admission Date: March 26, 2022 Subjective pt has no complaints, did have flatus, no significant pain taking po well Review of Systems Review of Systems: Mild distress and fatigue no headache, no visual changes no speech or swallowing issues no chest pain, pressure or palpitations no shortness of breath, cough or wheezes Mild inappropriate postoperative abdominal pain, without nausea or vomiting, diarrhea or constipation no dysuria, hematuria or frequency no focal joint pain or swelling no back pain, CVA tenderness or radicular pain no bruising, bleeding or rashes no focal signs of weakness or numbness or altered sensation no complaints of anxiety or depression.. Physical Exam Physical Exam: The patient appeared stable Vital signs as documented. Lungs are clear to auscultation and appear unlabored Cardiac exam, Rhythm is regular.. No murmurs, rubs or gallops. Abdominal exam reveals normal bowel sounds, soft non tender, no masses Extremities are nonedematous and both pedal pulses are normal. Neurologic exam is alert and oriented, no focal loss of strength or sensation Skin is without bruises or rashes Psychologically is without concerns for anxiety or depression. Results & Data Results & Data ([facility]) Vital Signs (Past 12 Hours) Vital Signs Temp Pulse Resp BP Pulse Ox 03/27/22 14:54 98.4 F 79 16 115/57 L 95 03/27/22 09:55 81 122/62 03/27/22 07:43 94 03/27/22 07:42 81 17 121/57 L 88 L 03/27/22 07:05 97.3 F L 74 16 114/57 L 92 PG Care Time/CCT Total # of Minutes Spent Total Time Spent with Patient: Total time spent is greater than 50% in coordination of care (as documented) at patient's floor/unit and/or counseling patient: Coding Level of Care Code 72082 Subseq Hosp Care Lvl 3 Diagnoses Colonic stricture K56.699 Atrial flutter I48.3 Atrial flutter type: typical Depression F32.9 Dementia F03.90 Dementia behavioral disturbance: without behavioral disturbance Dementia type: unspecified type Acute renal failure N17.9 (1) Atrial flutter Atrial flutter type: typical Qualified Code(s): I48.3 - Typical atrial flutter (2) Dementia Dementia behavioral disturbance: without behavioral disturbance Dementia type: unspecified type Qualified Code(s): F03.90 - Unspecified dementia without behavioral disturbance
[2022-03-27 20:12] LABS: Appearance Urine Clear (Clear); Bacteria Urine Automated Negative (Negative); Bilirubin Urine Negative (Negative); Blood Urine 3+ (Negative); Color Urine Yellow; Glucose Urine UA Negative (Negative); Ketones Urine Negative (Negative); Leukocyte Esterase Urine Negative (Negative); Nitrite Urine Negative (Negative); Protein Urine 1+ (Negative); RBC Urine Automated >30 /hpf (0-4); Specific Gravity Urine 1.009 (1.000-1.030); Urobilinogen Urine Negative (Negative)
[2022-03-27 20:43] LABS: Cast Urine Automated 0 /lpf (0-5)
[2022-03-27] MEDS: DONEPEZIL HCL 10 MG TAB PO SCH (20:55)
[2022-03-27] MEDS: ALFUZOSIN HCL 10 MG TAB PO SCH (20:55)
[2022-03-27] MEDS ORDERED: ALUMINUM/MAGNESIUM SUSP 30 ML UDC PO PRN (21:30)
[2022-03-28] MEDS: SODIUM CHLORIDE 0.9% 1000ML 1,000 ML IV SCH ×2 (02:50→19:54)
[2022-03-28] MEDS: ACETAMINOPHEN 1,000 MG/100 ML VIAL IV SCH ×2 (05:25→17:27)
--- NOTE | 2022-03-28 05:30 | Surgery Progress Note ---
Date of Service March 28, 2022 Assessment & Plan (1) Colonic stricture: Plan: Patient is status post sigmoidectomy on 03/26/2022 (postop day #2) Continue analgesics Continue antiemetics Maintain patient on clear liquids. Will not advance diet further until impro vement of bowel function noted Continue hydration with IV fluids until certain oral intake is adequate Check labs when available this morning Increase activity as able Patient takes Eliquis as an outpatient which has not been resumed yet. Will resume once okay with attending physician As above. pt feeling ok. large bm overnight. jennifer clears. Hg 6.9... will give 2 units PRBC's. renal fx improving. stay on clears for now. VONNIE still sanguinous so will hold on post op lovenox for now. Admission and Anticipated Discharge Date Admission Date: March 26, 2022 Subjective Patient is resting comfortably in bed. Patient notes that he has consumed some clear liquids sparingly. He does report some intermittent nausea but currently does not have any. He denies any bowel movement or flatus since surgery. He denies any shortness of breath or cough. Physical Exam Respiratory: normal respiratory effort; no respiratory distress and no labored breathing Gastrointestinal (Abdomen): Bowel sounds are absent. Abdomen is mildly distended. Pain noted appropriately near surgical incisions. VONNIE drain is in place draining ser-sanguinous fluid, 90 cc last shift. Musculoskeletal: No calf tenderness Results & Data ([facility]) Vital Signs (Past 12 Hours) Vital Signs Temp Pulse Resp BP Pulse Ox 03/27/22 21:43 36.7 C 87 18 113/70 94 PG Care Time/CCT Total # of Minutes Spent Total Time Spent with Patient: Total time spent is greater than 50% in coordination of care (as documented) at patient's floor/unit and/or counseling patient: Coding Level of Care Code None Diagnoses Colonic stricture K56.699
[2022-03-28 06:54] LABS: Hematocrit (blood only) 19.5 % (42-52); Hemoglobin 6.7 g/dL (14.0-18.0); Mean Corpuscular Hemoglobin 32.7 pg (25-34); Mean Corpuscular Hgb Conc 34.4 g/dL (32-36); Mean Corpuscular Volume 95.1 fL (80-100); Mean Platelet Volume 8.5 fL (7.4-10.4); Platelet Count 117 K/uL (130-400); RDW Coefficient of Variation 13.8 % (11.5-14.5); RDW Standard Deviation 48.2 fL (36.4-46.3); Red Blood Count 2.05 M/uL (4.7-6.1); White Blood Count 3.52 K/uL (4.8-10.8)
[2022-03-28 07:01] LABS: Immature Granulocytes # (auto) 0.01 K/uL (0.00-0.02); Immature Granulocytes % (auto) 0.3 %; Lymphocytes # (auto) 0.34 K/uL (1.2-3.4); Lymphocytes % (auto) 9.7 %; Monocytes # (auto) 0.43 K/uL (0.11-0.59); Monocytes % (auto) 12.2 %; Neutrophils # (auto) 2.74 K/uL (1.4-6.5); Neutrophils % (auto) 77.8 %; RBC Morphology Unremarkable
[2022-03-28 07:07] LABS: BUN Creatinine Ratio 11.5 (10-20); Calcium 7.5 mg/dl (8.5-10.1); Creatinine Clr Calc Pharmacy 22.9 ml/min; Est GFR (African American) 28.7 ml/min; Est GFR (Non-African American) 24.8 ml/min; Potassium 4.6 mmol/L (3.5-5.1)
[2022-03-28] MEDS ORDERED: SODIUM CHLORIDE 0.9% 250 ML IV PRN (07:28)
[2022-03-28] MEDS: CITALOPRAM 40 MG TAB PO SCH (09:27)
[2022-03-28] MEDS: PANTOprazole 40 MG TAB PO SCH ×2 (09:27→19:47)
[2022-03-28] MEDS: METOPROLOL SUCC 25MG EXT REL TAB PO SCH (09:27)
--- NOTE | 2022-03-28 11:58 | Hospitalist Progress Note ---
Date of Service March 28, 2022 Assessment & Plan (1) Colonic stricture: Plan: Status post laparoscopic colectomy and enterolysis by Dr. Castro on 03/26/2022 - Pain control, antibiotics, diet, VONNIE drain management per primary service - Would encourage IS q1h while awake for atelectasis/pna prevention - OOB to chair (2) Acute renal failure: Plan: - pt developed post op VIMAL, has stable electrolytes, and bicarb, likely ATN from prerenal issue due to low blood pressure - continue ivf, function slowly improving - ua does not reflect active infection - potassium wnl, no AG (3) Acute blood loss anemia: Plan: - Post operative anemia due to blood loss in setting of recent surgery - T&C and transfused by primary team, appears 2 units was ordered - Encourage obtaining post transfusion cbc, may benefit from additional unit - Continues to have IVF running, hgb value likely with dilutional component (4) Atrial flutter: Plan: - Patient has a history of atrial flutter managed with Dr. Flores at [facility] cardiology on metoprolol and Eliquis - Eliquis on hold d/t post-op anemia - Patient also typically on lisinopril 20mg twice daily and hydralazine 25mg at home, both being held d/t VIMAL (5) Depression: Plan: - Continue Celexa (6) Dementia: Plan: - Continue Aricept Plan: Continue to trend labs Diet advancement as per primary service, would cap fluids if tolerating oral intake (even if just tolerating liquids) Would encourage d/c arroyo Promote ambulation Will d/w Dr. Ceron Will continue to follow Admission and Anticipated Discharge Date Admission Date: March 26, 2022 Subjective Patient seen on rounds this morning. He is resting comfortably in bed, no current complaints. He is pod#2 from sigmoid colectomy and enterolysis by Dr. Castro. Pt is tolerating clear liquids, no BM or flatus since surgery. Intermittent nausea, none at present and no vomiting. Endorses abd discomfort rated 5/10. Denies fever, chills, chest pain or dyspnea. He is currently receiving blood transfusion for post op anemia w/ hgb of 6.7. Review of Systems Review of Systems: All systems reviewed and are unremarkable except as noted in HPI and below. Denies fever, chills, fatigue, headache, nasal congestion, sore throat, cough, chest pain, shortness of breath, palpitations, orthopnea, PND, v/d, constipation, dysuria, hematuria, frequency, back pain, joint pain or swelling, easy bruising or bleeding, skin lesions or rashes. Physical Exam Physical Exam: GENERAL: 89yo WD/WN elderly WM. NAD. LUNGS: Clear to auscultation bilaterally. No W/R/R. CARDIOVASCULAR: Regular rate and rhythm. No M/G/R. No JVD. ABDOMEN: Soft, minimal tenderness to palp, mildly distended. No rigidity. Incisions dressed. BS present in all 4 quad. EXTREMITIES: No edema. Non-tender. Peripheral pulses +2/4. NEUROLOGIC: A&O x3. PSYCHIATRIC: Cooperative. Appropriate mood and affect. SKIN: Warm, dry, intact. No rashes or lesions. Results & Data Results & Data ([facility]) Vital Signs (Past 12 Hours) Vital Signs Temp Pulse Pulse Resp BP BP Pulse Ox 03/28/22 10:16 36.9 C 87 18 144/69 H 97 03/28/22 09:16 36.8 C 86 18 132/69 97 03/28/22 08:46 37.1 C 94 H 18 137/69 03/28/22 08:45 36.3 C L 94 H 18 118/63 95 03/28/22 08:30 36.5 C 98 H 16 126/55 L 92 03/28/22 08:28 36.5 C 98 H 126/55 L 16 L 03/28/22 08:13 36.3 C L 94 H 20 130/64 95 03/28/22 07:14 36.8 C 95 H 16 125/66 93 Laboratory Results 03/28/22 05:40 03/28/22 05:40 PG Care Time/CCT Total # of Minutes Spent Total Time Spent with Patient: Total time spent is greater than 50% in coordination of care (as documented) at patient's floor/unit and/or counseling patient: Coding Level of Care Code 10394 Subseq Hosp Care Lvl 2 Diagnoses Colonic stricture K56.699 Acute renal failure N17.9 Atrial flutter I48.3 Atrial flutter type: typical Depression F32.9 Dementia F03.90 Dementia behavioral disturbance: without behavioral disturbance Dementia type: unspecified type Acute blood loss anemia D62 (1) Atrial flutter Atrial flutter type: typical Qualified Code(s): I48.3 - Typical atrial flutter (2) Dementia Dementia behavioral disturbance: without behavioral disturbance Dementia type: unspecified type Qualified Code(s): F03.90 - Unspecified dementia without behavioral disturbance
[2022-03-28] MEDS: ALFUZOSIN HCL 10 MG TAB PO SCH (19:48)
[2022-03-28] MEDS: DONEPEZIL HCL 10 MG TAB PO SCH (19:48)
[2022-03-28] MEDS ORDERED: Nursing to Pharmacy Communication SCH (23:45)
[2022-03-29] MEDS: ACETAMINOPHEN 1,000 MG/100 ML VIAL IV SCH ×3 (00:10→10:24)
[2022-03-29 06:13] LABS: Eosinophils # (auto) 0.01 K/uL (0-0.5); Eosinophils % (auto) 0.3 %; Hemoglobin 8.8 g/dL (14.0-18.0); Immature Granulocytes # (auto) 0.01 K/uL (0.00-0.02); Immature Granulocytes % (auto) 0.3 %; Lymphocytes # (auto) 0.43 K/uL (1.2-3.4); Lymphocytes % (auto) 12.4 %; Mean Corpuscular Hemoglobin 31.4 pg (25-34); Mean Corpuscular Hgb Conc 33.8 g/dL (32-36); Mean Corpuscular Volume 92.9 fL (80-100); Mean Platelet Volume 8.6 fL (7.4-10.4); Monocytes # (auto) 0.33 K/uL (0.11-0.59); Monocytes % (auto) 9.5 %; Neutrophils % (auto) 77.5 %; Platelet Count 117 K/uL (130-400); RDW Coefficient of Variation 15.6 % (11.5-14.5); RDW Standard Deviation 53.5 fL (36.4-46.3); White Blood Count 3.48 K/uL (4.8-10.8)
--- NOTE | 2022-03-29 06:18 | Surgery Progress Note ---
Date of Service March 29, 2022 Assessment & Plan (1) Colonic stricture: Plan: Patient is status post sigmoidectomy on 03/26/2022 (postop day #3) Continue analgesics Continue antiemetics Maintain patient on clear liquids till improvement of abdominal exam noted. We will check KUB this morning Continue hydration with IV fluids until certain oral intake is adequate Postoperative anemia noted. Patient received 2 units of packed red blood cells yesterday with appropriate rise in his hemoglobin and hematocrit Increase activity as able Patient takes Eliquis as an outpatient which has not been resumed yet due to patient's noted anemia. as above. doing ok. multiple loose bm's. VONNIE output decreasing. HG rebounded appropriately after 2 units PRBC's. We will continue to monitor drain output as well as hemoglobin. jennifer diet. will advance to full liquids. will hepwell fluids. pressure slightly up this morning but this was before his morning blood pressure medicine was given. Pain control adequate. Admission and Anticipated Discharge Date Admission Date: March 26, 2022 Subjective Patient is resting in bed. He denies any significant abdominal pain. He denies any nausea or vomiting. He denies any bowel movement or flatus. Physical Exam Gastrointestinal (Abdomen): Abdomen is mildly distended with hypoactive bowel sounds. Patient has some pain near surgical incisions. VONNIE drain is in place draining some bloody fluid. Has drained approximate 175 cc over the past 24 hours and 5 cc over the past shift. Results & Data ([facility]) Vital Signs (Past 12 Hours) Vital Signs Temp Pulse Resp BP Pulse Ox 03/28/22 23:25 91 H 20 160/76 H 03/28/22 22:23 82 178/80 H 03/28/22 21:05 36.6 C 95 H 22 174/69 H 96 PG Care Time/CCT Total # of Minutes Spent Total Time Spent with Patient: Total time spent is greater than 50% in coordination of care (as documented) at patient's floor/unit and/or counseling patient: Coding Level of Care Code None Diagnoses Colonic stricture K56.699
[2022-03-29 06:32] LABS: BUN Creatinine Ratio 12.6 (10-20); Calcium 8.1 mg/dl (8.5-10.1); Creatinine Clr Calc Pharmacy 36.2 ml/min; Est GFR (Non-African American) 43.1 ml/min; Potassium 4.4 mmol/L (3.5-5.1)
--- NOTE | 2022-03-29 07:05 | XRay Report ---
KUB CLINICAL HISTORY: Ileus. COMPARISON STUDY: CT of the abdomen and pelvis January 26, 2022. FINDINGS: Incidental note is made of cholecystectomy clips. Surgical drain within the pelvis is noted . The bowel gas pattern is within normal limits. There is no evidence for a bowel obstruction. There may be a trace left pleural effusion. IMPRESSION: Normal bowel gas pattern. No radiographic evidence for a bowel obstruction. ACT 112: Negative or not required by law. Electronically signed by: Donny Hu M.D. 03/29/2022 7:04 AM
[2022-03-29] MEDS: PANTOprazole 40 MG TAB PO SCH ×2 (08:22→23:47)
[2022-03-29] MEDS: CITALOPRAM 40 MG TAB PO SCH (08:22)
[2022-03-29] MEDS: METOPROLOL SUCC 25MG EXT REL TAB PO SCH (08:22)
--- NOTE | 2022-03-29 13:27 | Hospitalist Progress Note ---
Date of Service March 29, 2022 Assessment & Plan (1) Colonic stricture: Plan: Status post laparoscopic colectomy and enterolysis by Dr. Castro on 03/26/2022 - Pain control, antibiotics, diet, VONNIE drain management per primary service - Would encourage IS q1h while awake for atelectasis/pna prevention - OOB to chair (2) Acute renal failure: Plan: - pt developed post op VIMAL, has stable electrolytes, and bicarb, likely ATN from prerenal issue due to low blood pressure - IVF administered and pt's renal function greatly improved and nearly at baseline (creat @ baseline is ~1.2) - Fluids stopped (3) Acute blood loss anemia: Plan: - Post operative anemia due to blood loss in setting of recent surgery - T&C and transfused by primary team, appears 2 units was ordered and transfused - Suspect dilutional component to hgb - H&H improved today as above, would continue to trend - Does not appear Lasix was given in between units which has likely created a bit of hypervolemia (4) Hypertension: Plan: - Uncontrolled presently s/p blood transfusion/fluids/BP meds held d/t VIMAL - Now that renal fxn has improved and is near baseline, will resume Lisinopril and Hydralazine - Fluids have been stopped - Will resume meds and monitor BP (5) Atrial flutter: Plan: - Patient has a history of atrial flutter managed with Dr. Flores at [facility] cardiology on metoprolol and Eliquis - Eliquis on hold d/t post-op anemia (6) Depression: Plan: - Continue Celexa (7) Dementia: Plan: - Continue Aricept Plan: Diet advancement as per primary service Again, would encourage d/c arroyo and promote ambulation Resume BP meds as above Repeat labs in AM as ordered Plan d/w Dr. Ceron Will continue to follow Admission and Anticipated Discharge Date Admission Date: March 26, 2022 Subjective Patient seen on daily rounds this morning. He is s/p lap sigmoid colectomy and enterolysis by Dr. Castro due to colonic stricture. He is resting in bedside chair, reports some abdominal discomfort/soreness. Has nausea but no vomiting. Denies fever/chills. States that he is now passing flatus and had a small BM this morning. Review of Systems Review of Systems: All systems reviewed and are unremarkable except as noted in HPI and below. Denies fever, chills, fatigue, headache, nasal congestion, sore throat, cough, chest pain, shortness of breath, palpitations, orthopnea, PND, v/d, constipa tion, dysuria, hematuria, frequency, back pain, joint pain or swelling, easy bruising or bleeding, skin lesions or rashes. Physical Exam Physical Exam: GENERAL: 89yo WD/WN elderly WM. NAD. LUNGS: Clear to auscultation bilaterally. No W/R/R. CARDIOVASCULAR: Regular rate and rhythm. No M/G/R. No JVD. ABDOMEN: Soft, minimal tenderness to palp, mildly distended. No rigidity. Incisions dressed. BS present in all 4 quad. : Arroyo in place-pale yellow urine noted in tubing/bag EXTREMITIES: No edema. Non-tender. Peripheral pulses +2/4. PSYCHIATRIC: Cooperative. Appropriate mood and affect. SKIN: Warm, dry, intact. No rashes or lesions. Results & Data Results & Data ([facility]) Vital Signs (Past 12 Hours) Vital Signs Temp Pulse Resp BP Pulse Ox 03/29/22 07:57 36.7 C 94 H 18 182/82 H 92 Laboratory Results 03/29/22 05:42 03/29/22 05:42 PG Care Time/CCT Total # of Minutes Spent Total Time Spent with Patient: Total time spent is greater than 50% in coordination of care (as documented) at patient's floor/unit and/or counseling patient: Coding Level of Care Code 84195 Subseq Hosp Care Lvl 2 Diagnoses Colonic stricture K56.699 Acute renal failure N17.9 Acute blood loss anemia D62 Atrial flutter I48.3 Atrial flutter type: typical Depression F32.9 Dementia F03.90 Dementia behavioral disturbance: without behavioral disturbance Dementia type: unspecified type Hypertension I10 Hypertension type: essential hypertension (1) Atrial flutter Atrial flutter type: typical Qualified Code(s): I48.3 - Typical atrial flutter (2) Dementia Dementia behavioral disturbance: without behavioral disturbance Dementia type: unspecified type Qualified Code(s): F03.90 - Unspecified dementia without behavioral disturbance (3) Hypertension Hypertension type: essential hypertension Qualified Code(s): I10 - Essential (primary) hypertension
[2022-03-29] MEDS: hydrALAZINE HCL 25 MG TAB PO SCH ×2 (14:06→23:46)
[2022-03-29] MEDS ORDERED: hydrALAZINE HCL 20 MG/ML VIAL IV PRN (16:54)
[2022-03-29 18:06] LABS: Appearance Urine Clear (Clear); Bacteria Urine Automated Negative (Negative); Bilirubin Urine Negative (Negative); Blood Urine Trace (Negative); Cast Urine Automated 0 /lpf (0-5); Color Urine Yellow; Epithelial Cell Urine Auto 0-5 /lpf (0-5); Glucose Urine UA Negative (Negative); Ketones Urine Trace (Negative); Leukocyte Esterase Urine Negative (Negative); Nitrite Urine Negative (Negative); Protein Urine 2+ (Negative); Specific Gravity Urine 1.014 (1.000-1.030); Urobilinogen Urine Negative (Negative); WBC Urine Automated 0 /hpf (0-5); pH Urine 6.5 (4.5-7.5)
--- NOTE | 2022-03-29 18:11 | XRay Report ---
XR chest 1V portable CLINICAL HISTORY: fever. COMPARISON STUDY: No previous studies for comparison. TECHNIQUE: 1 view of the chest FINDINGS: There is marked pneumoperitoneum characteristic of bowel perforation. There is present of b oth hemidiaphragms. Single frontal view of the chest demonstrates the cardiomediastinal silhouette to be within normal li mits. The lungs are clear of alveolar opacities. There is no evidence for pleural effusion. There is no evidence for vascular congestion. There is no acute osseous pathology. IMPRESSION: 1. Marked pneumoperitoneum bilaterally characteristic of bowel perforation. This was not present on t he earlier chest x-ray. 2. Otherwise no acute chest disease. Patient's nurse was called directly with the results of this study. ACT 112: Negative or not required by law. Electronically signed by: Jax Rowe M.D. 03/29/2022 6:09 PM
[2022-03-29] MEDS ORDERED: PIPERACILLIN/TAZOBACTAM 4.5 GM in DEXTROSE 5% 100 ML IV ONE (18:48)
[2022-03-29] MEDS ORDERED: SODIUM CHLORIDE 0.9% 250 ML IV PRN (18:57)
[2022-03-29] MEDS ORDERED: SODIUM CHLORIDE 0.9% 1000ML 1,000 ML IV SCH (19:00)
--- NOTE | 2022-03-29 19:13 | History & Physical Bridge Note ---
Date of Service March 29, 2022 History & Physical Bridge Note I have examined the patient, reviewed the History & Physical and in the interval since the performance of the History & Physical I have noted the following changes of clinical significance: Called by nursing several hours ago with patient having a fever and some wheezing. He did have several bowel movements today. Drain has remained sanguinous ( no GI contents). Chest x-ray reveals free air that was not there during this morning's KUB. Patient also clinically deteriorated now with low- grade fever, tachycardia and worsening abdominal pain. Stat CT scan reveals free air as well. He is slightly confused. I called his daughter Nancy to get consent for an exploratory laparotomy, possible bowel resection, possible colostomy/ileostomy, surgery as needed. We discussed potential risks which include bleeding infection blood clots stroke heart attack etc. I answered all of her questions and she is agreeable with the plan. We have reserved an intensive care unit bed for him afterwards. We will proceed stat with exploratory laparotomy surgery as needed.
[2022-03-29] MEDS ORDERED: fentaNYL citrate 100 MCG/2 ML VIAL ONE (19:32)
[2022-03-29] MEDS ORDERED: PROPOFOL IV EMULSION 10 MG/ML 20 ML VIAL IV ONE (19:32)
[2022-03-29] MEDS ORDERED: ROCURONIUM BROMIDE 10 MG/ML 5 ML VIAL IV ONE ×3 (19:32→22:13)
[2022-03-29] MEDS ORDERED: LIDOCAINE 2% 2 ML VIAL/AMP(20MG/ML) INFIL ONE (19:32)
[2022-03-29] MEDS ORDERED: SUCCINYLCHOLINE CHLORIDE 20 MG/ML 10 ML VIAL IV ONE (19:32)
[2022-03-29] MEDS ORDERED: BUPIVACAINE/EPINEPHRINE 0.25% 1:200,000 30 ML VIAL ONE (19:34)
[2022-03-29] MEDS: SODIUM CHLORIDE 0.9% 1000ML 1,000 ML IV SCH (19:37)
--- NOTE | 2022-03-29 19:49 | Anesthesiology Consultation ---
Date of Service March 29, 2022 Assessment & Plan Chart Review Chart Review: Acceptable Risk for Surgery Consults Requested none History Surgery Operation Date: 03/26/22 08:45 Proposed Procedures p Laparoscopic Sigmoid Colectomy - Honorio Castro DO Operation Date: 03/29/22 19:10 Proposed Procedures p Exploratory Laparotomy - Honorio Castro, DO Height/Weight Height: 5 ft 10 in Weight: 80.8 kg Allergies Allergy/AdvReac Type Severity Reaction Status Date / Time Sulfa (Sulfonamide Allergy Intermediate Rash Verified 03/26/22 07:01 Antibiotics) vancomycin Allergy Intermediate LOWER Verified 03/26/22 07:01 EXTREMITY SWELLING, FEVER adhesive AdvReac Mild sKin Verified 03/26/22 07:01 tears-WITH TAPE gabapentin AdvReac Mild drowsy,conf Verified 03/26/22 07:01 used Medications Home Medications Medication Instructions Recorded Confirmed Last Taken cranberry 500 mg capsule 1,000 mg PO QAM 05/31/19 03/26/22 03/23/22 lidocaine 5 % topical patch 1 patch TRANSDERMAL UD PRN ea 01/21/21 03/26/22 05/21/21 hydralazine 25 mg tablet 25 mg PO TID 04/08/21 03/26/22 03/26/22 05:15 metoprolol succinate 25 mg 25 mg PO QAM 04/18/21 03/26/22 03/26/22 05:15 tablet,extended release 24 hr aspirin 81 mg tablet,delayed 81 mg PO QAM #30 tab 06/03/21 03/26/22 03/23/22 release apixaban 2.5 mg tablet (Eliquis) 2.5 mg PO BID tab 07/08/21 03/26/22 03/23/22 acetaminophen 500 mg capsule 1,000 mg PO TID 08/21/21 03/26/22 03/25/22 16:00 alfuzosin 10 mg tablet,extended 10 mg PO QPM 08/21/21 03/26/22 03/25/22 16:00 release 24 hr Saccharomyces boulardii 250 mg 250 mg PO QAM cap 11/24/21 03/26/22 03/25/22 capsule (Florastor) azelastine 205.5 mcg (0.15 %) 2 spray INTRANASAL UD PRN 01/19/22 03/26/22 Unknown nasal spray meclizine 25 mg tablet 25 mg PO UD PRN 01/19/22 03/26/22 Unknown lisinopril 10 mg tablet 20 mg PO BID tab 02/12/22 03/26/22 03/25/22 16:00 pantoprazole 40 mg tablet,delayed 40 mg PO BID #180 tab 02/12/22 03/26/22 03/26/22 05:15 release tramadol 50 mg tablet 25 - 50 mg PO UD PRN #30 tab 03/02/22 03/26/22 03/25/22 citalopram 40 mg tablet (Celexa) 40 mg PO QAM 03/26/22 03/26/22 03/26/22 05:15 donepezil 23 mg tablet (Aricept) 23 mg PO HS 03/26/22 03/26/22 03/25/22 16:00 Active Medications Generic Name Dose Route Start Last Admin Trade Name Freq PRN Reason Stop Dose Admin Al Hydrox/Mg Hydrox/Simethicone 15 ml 03/27/22 21:30 03/27/22 21:51 Aluminum/Magnesium Susp 30 Ml Udc PO 04/26/22 21:29 15 ml Q6H PRN Administration Indigestion Alfuzosin HCl 10 mg 03/26/22 21:00 03/28/22 19:48 Alfuzosin Hcl 10 Mg Tab PO 04/25/22 20:59 10 mg QPM DERECK Administration Citalopram Hydrobromide 40 mg 03/27/22 09:00 03/29/22 08:22 Citalopram 40 Mg Tab PO 04/26/22 08:59 40 mg QAM DERECK Administration Donepezil HCl 10 mg 03/26/22 21:00 03/28/22 19:48 Donepezil Hcl 10 Mg Tab PO 04/25/22 20:59 10 mg HS DERECK Administration Hydralazine HCl 25 mg 03/29/22 14:00 03/29/22 14:06 Hydralazine Hcl 25 Mg Tab PO 04/28/22 13:59 25 mg TID DERECK Administration Hydralazine HCl 10 mg 03/29/22 16:54 03/29/22 17:18 Hydralazine Hcl 20 Mg/Ml Vial IV 04/28/22 16:53 10 mg Q6H PRN Administration sbp>180 or dbp>100 Sodium Chloride 1,000 mls @ 125 mls/hr 03/29/22 19:00 03/29/22 19:37 Nss 1000ml IV 04/28/22 18:59 125 mls/hr .Q8H DERECK Administration Metoprolol Succinate 25 mg 03/27/22 09:00 03/29/22 08:22 Metoprolol Succ 25mg Ext Rel Tab PO 04/26/22 08:59 25 mg QAM DERECK Administration Morphine Sulfate 2 mg 03/27/22 02:32 03/28/22 22:00 Morphine Sulfate 2 Mg/Ml Carp IV 04/09/22 14:32 2 mg Q3H PRN Administration Pain (1,2,3,4,5) & Pre PT Morphine Sulfate 4 mg 03/27/22 02:32 03/27/22 21:51 Morphine Sulfate 4 Mg/Ml 1 Ml Carp\\Vial IV 04/09/22 14:32 4 mg Q3H PRN Administration Pain (6,7,8,9,10) Pantoprazole Sodium 40 mg 03/26/22 21:00 03/29/22 08:22 Pantoprazole 40 Mg Tab PO 04/25/22 20:59 40 mg BID DERECK Administration NPO Date Last Intake of Fluids: 03/25/22 Time Last Intake of Fluids: 23:45 Last Intake of Fluids Comment: clear liquid diet 03-25-22 Date Last Intake of Solids: 03/24/22 Time Last Intake of Solids: 17:00 Past Medical History Medical History (Updated 03/29/22 @ 13:24 by nAa Stuart PA-C) Anxiety Atrial flutter DX OCT 2020> ELIQUIS/METOPROLOL -F/U DR POLI MEDEROS 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 BPH (benign prostatic hyperplasia) Cervical facet joint syndrome Cervical spinal stenosis Left C7 and 8 paresthesias CKD (chronic kidney disease) stage 3, GFR 30-59 ml/min follows PCP Diastolic heart failure Dyslipidemia GERD (gastroesophageal reflux disease) CONTROLLED Hearing difficulty History of COVID-19 01/22/22 tested at [facility] > headache, fatigue > resolved, no more symptoms History of kidney stones History of pancreatitis Last episode 05/2021 Hypertension Impaired fasting glucose Hgb A1C 6.8 on 11/25/20 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, HAS HARD TIME COMPREHENDING INFORMATION Nocturnal hypoxemia Occipital neuralgia of left side Sleep apnea CPAP Past Family History Family History Son Family history of diabetes mellitus Daughter Family history of diabetes mellitus Other No family history of adverse response to anesthesia No pertinent family history Denies family history of Ovarian cancer Prostate cancer Myocardial infarction Breast cancer Colorectal cancer Past Surgical History Surgical History (Updated 03/27/22 @ 11:55 by Honorio Castro DO) H/O colonoscopy (06/2013) 02/2022 History of colon resection (03/26/22) Laparoscopic Sigmoid Colectomy with enterolysis (Not Applicable) - Honorio Castro DO History of cystoscopy History of difficult intubation CHOLECYSTECTOMY= 01/11/14= GLIDESCOPE #4 (2/2 DECREASED CERVICAL ROM) BUT HAD GRADE VIEW 1, MAC 4 WITH ANKLE SURGERY 11/09/14 PER [facility] RECORDS History of esophagogastroduodenoscopy (EGD) (09/2019) History of shoulder surgery Rt shoulder - 09/22/18 [facility] History of total knee replacement B/L WITH REVISIONS; LEFT TKA REVISION= 05/13/17= SAB X 2 ATTEMPTS + PNB AT [facility] Hx of cervical spine surgery ROM LIMITED FROM SIDE TO SIDE Hx of total ankle replacement RIGHT S/P cholecystectomy S/P ERCP 04/20/21 Dr. Pablo Garibay- 2 stones removed, 2 stents placed Squamous cell carcinoma of back resolved Social History Smoking Status: Never smoker Do You Dip or Chew Tobacco: No Hx Alcohol Use: No Hx Substance Use: No substance use type: does not use Physical Exam Vital Signs Last Vital Signs Temp 38.1 C H 03/29/22 16:37 Pulse 102 H 03/29/22 16:37 Resp 18 03/29/22 16:37 BP 183/83 H 03/29/22 16:41 Pulse Ox 97 03/29/22 16:41 Testing Laboratory Results Urine Color Yellow 03/29/22 17:25 Urine Appearance Clear (Clear) 03/29/22 17:25 Urine pH 6.5 (4.5-7.5) 03/29/22 17:25 Ur Specific [place] 1.014 (1.000-1.030) 03/29/22 17:25 Urine Protein 2+ (Negative) H 03/29/22 17:25 Urine Glucose (UA) Negative (Negative) 03/29/22 17:25 Urine Ketones Trace (Negative) H 03/29/22 17:25 Urine Nitrite Negative (Negative) 03/29/22 17:25 Ur Leukocyte Esterase Negative (Negative) 03/29/22 17:25 Urine WBC (Auto) 0 /hpf (0-5) 03/29/22 17:25 Urine RBC (Auto) 5-10 /hpf (0-4) H 03/29/22 17:25 U Hyaline Cast (Auto) 0 /lpf (0-5) 03/29/22 17:25 U Epithel Cells (Auto) 0-5 /lpf (0-5) 03/29/22 17:25 Urine Bacteria (Auto) Negative (Negative) 03/29/22 17:25 Blood Type A Positive 03/26/22 06:56 Antibody Screen NEGATIVE 03/26/22 06:56
[2022-03-29 20:00] LABS: BUN Creatinine Ratio 11.7 (10-20); Calcium 8.8 mg/dl (8.5-10.1); Creatinine Clr Calc Pharmacy 40.4 ml/min; Est GFR (African American) 57.1 ml/min; Est GFR (Non-African American) 49.3 ml/min; Potassium 4.2 mmol/L (3.5-5.1)
--- NOTE | 2022-03-29 20:00 | CT Scan Report ---
CT abd pelvis wo con CLINICAL HISTORY: pneumoperitoneum COMPARISON STUDY: Portable chest from 03/29/2022 and abdomen film from 03/29/2022 CT DOSE: 672.60 mGy.cm TECHNIQUE: Standard CT of the Abdomen and Pelvis was performed without IV contrast. The patient did not receive oral contrast. A dose lowering technique was utilized adhering to the principles of MIKEY Maloney FINDINGS: Lung base: There are very small bilateral pleural effusions. The lung bases are otherwise clear. Abdominal cavity: As seen on the patient's portable chest radiograph, there is marked pneumoperitoneu m with extensive air present along the anterior abdominal wall. The patient had previous surgery 3 da ys ago. However, the amount of air is much greater than to be expected. Additionally, there was no ai r identified on the earlier portable chest radiograph from the same date. There is evidence for a track of subcutaneous air seen within the right lower quadrant most likely re lated to a site of a port for endoscopic surgery. Air bubbles also seen in the left lower quadrant as well. Since the patient did not have an open abdominal incision, extensive areas considered even wor se and is most characteristic of a bowel perforation. There is also a draining catheter in the right lower quadrant which extends into the pelvis. Scattered air bubbles are also seen within the intra-abdominal fat. The largest concentration of air is seen in the region of the gastric antrum. The presence of a perforated ulcer at this site as possi ble etiology of the perforated bowel. No other suspicious sites of perforation are identified. Liver: The liver is homogeneous in attenuation on these limited noncontrast images.. Spleen: The spleen is homogeneous in attenuation on these limited noncontrast images. Pancreas: The pancreas is homogeneous in attenuation on these limited noncontrast images. Gall Bladder: Surgical clips are present. Adrenal glands: The adrenal glands are normal in size and attenuation on these limited noncontrast im ages. Kidneys: The kidneys are homogeneous in attenuation on these limited noncontrast images. There is no evidence for gross renal mass, calculus or hydronephrosis bilaterally. Bowel: There is diverticulosis of the sigmoid colon with evidence for acute diverticulitis. Pericolon ic inflammatory changes are present. However, there is no definite site of perforation is seen. No de finite free air is present at this site. The patient is status post previous partial sigmoid resectio n with end-to-end anastomosis. The remaining bowel loops are normally placed within the abdomen and pelvis without evidence for dil atation or obstruction. There is no evidence for mass lesion. Bladder: Lozoya catheter is in place. : There is no evidence for pelvic mass or adenopathy. Vasculature: There is no evidence for focal aneurysmal dilatation of the abdominal aorta. Osseous structures: There is no acute osseous pathology. IMPRESSION: 1. CT confirms the presence of marked pneumoperitoneum. 2. Possible etiology of bowel obstruction is in the region of the gastric antrum with localized intra peritoneal air present at this site. 3. There is also acute diverticulitis with no evidence for perforation or free air at this site. 4. Small bilateral pleural effusions. 5. Surgical drain extending into the pelvis. 6. Minimal subcutaneous air in both lower quadrants most likely related to sites of ports for an endo scope. 6. Additional findings as described above. ACT 112: Negative or not required by law. Electronically signed by: Jax Rowe M.D. 03/29/2022 7:57 PM
[2022-03-29 20:53] LABS: Eosinophils # (auto) 0.02 K/uL (0-0.5); Eosinophils % (auto) 0.3 %; Hematocrit (blood only) 29.7 % (42-52); Hemoglobin 9.9 g/dL (14.0-18.0); Immature Granulocytes # (auto) 0.02 K/uL (0.00-0.02); Immature Granulocytes % (auto) 0.3 %; Lymphocytes # (auto) 0.61 K/uL (1.2-3.4); Lymphocytes % (auto) 10.4 %; Mean Corpuscular Hemoglobin 30.9 pg (25-34); Mean Corpuscular Hgb Conc 33.3 g/dL (32-36); Mean Corpuscular Volume 92.8 fL (80-100); Mean Platelet Volume 9.1 fL (7.4-10.4); Monocytes # (auto) 0.48 K/uL (0.11-0.59); Monocytes % (auto) 8.2 %; Neutrophils # (auto) 4.74 K/uL (1.4-6.5); Neutrophils % (auto) 80.8 %; Platelet Count 181 K/uL (130-400); RDW Coefficient of Variation 15.2 % (11.5-14.5); White Blood Count 5.87 K/uL (4.8-10.8)
[2022-03-29] MEDS ORDERED: lisinopril 20 MG TAB PO SCH (21:00)
[2022-03-29] MEDS ORDERED: MIDAZOLAM HCL 1 MG/ML 2ML VIAL ONE (22:11)
[2022-03-29] MEDS ORDERED: MoRPHine SULFATE PF 1 MG/ML 10 ML AMP/VIAL ONE (22:11)
--- NOTE | 2022-03-29 23:21 | Critical Care Consultation ---
Date of Consultation March 29, 2022 Assessment & Plan (1) Perforated bowel: Reason Critically Ill: 89-year-old male POD 3 for sigmoidectomy, now presents to the ICU following a ex lap with repair of perforated anastomosis of the sigmoid colon and diverting ileostomy. Remains mechanically ventilated postop. Neuro - Sedation: Propofol/fentanyl Dementiacontinue Aricept when appropriate Cardiac - Remains hemodynamically stable postop without need for vasopressors. Atrial fluttercurrently normal sinus rhythm Hold apixaban given surgery -Continue MTP -Continuous monitoring on telemetry HTNcontinue hydralazine, MDP. Hold lisinopril given VIMAL Respiratory - History of ELIANA. Now mechanically ventilated following surgery. -Plan to attempt SBT tomorrow morning if patient remains stable -No significant hypoxia or pH imbalance on ABG -Continuous monitoring pulse ox and end-tidal CO2 GI - Pneumoperitoneum/perforation of anastomosismanagement per surgery. Patient recently underwent sigmoidectomy for colon stricture which was elective and was POD 3 -Pneumoperitoneum noted on chest x-ray earlier this morning and he went for CTA which identified free air in the abdomen -Now presents to the ICU postop for ex lap with repair of perforated anastomosis and diverting ileostomy. VONNIE drain x2 managed per surgical team -N.p.o. -NG tube to low intermittent suction -Famotidine -Follow surgical recommendations RENAL/LYTES - AKIimproving. Creatinine now down to 1.21 from 3.3 -Continue to monitor routine BMPs and replete electrolytes as indicated -Maintain maps greater than 65 --Hold lisinopril -Avoid nephrotoxins renally adjust medications -Continue with IV fluid resuscitation - Foleystrict I's and O's ENDO - No history of diabetes or thyroid disease. ICU hyperglycemic protocol HEME - Acute blood loss anemiafollowing initial surgery. Patient hemoglobin stabilized following transfusion -Repeat hemoglobin 9.5. Monitor with routine CBCs for now ID - Continue with empiric Zosyn for intra-abdominal coverage. No clear evidence of infectious process at this time LINES/IV ACCESS - Peripheral IVs, NG tube, ET tube DVT PROPHYLAXIS - SCDs, hold anticoagulation given recent surgery I have personally spent 55 minutes of critical care time in the direct management of this patient. This is a life/limb threatening event. This includes time spent evaluating patient, direct bedside care, chart review, placing orders, interpretation of diagnostic studies, discussion with consultants, patient, and family members, as well as other required patient management activities. This time is exclusive of all separately billable procedures, and teaching time and separate from and in addition to any other critical care service time. Thank you for allowing us to participate in the care of this patient. Please refer to my attending physician's documentation for any further recommendations. (2) Acute renal failure: (3) Acute blood loss anemia: (4) Hypertension: (5) History of colon resection: (6) Pneumoperitoneum: (7) Colonic stricture: (8) Osteoarthritis: (9) Mild obstructive sleep apnea: (10) Atrial flutter: (11) Anticoagulant long-term use: (12) GERD (gastroesophageal reflux disease): History of Present Illness Attending Physician: Honorio Castro, History of Present Illness Patient is a 89-year-old male with past medical history of HTN, DJD, ELIANA, atrial flutter (anticoagulated), GERD, who was recently admitted following an elective resection of the sigmoid colon due to stricture associated with the abdominal pain and fecal incontinence. Earlier today patient was noted to be hypertensive, febrile with abdominal distention and discomfort. A chest x-ray revealed pneumoperitoneum and he was taken for CT abdomen and pelvis which confirmed pneumoperitoneum. Patient was then taken to the OR where he was found to have anastomotic perforation. He underwent ex lap with repair of anastomotic perforation with diverting ileostomy. Decision was made to leave the patient intubated postop overnight, and admit to ICU as he is high risk for decompensation given age and comorbidities. On arrival to the ICU the patient is mechanically ventilated. Abdomen appears distended and edematous and ileostomy and 2 VONNIE drains is now present. Patient is currently sedated. He is hemodynamically stable and somewhat hypersensitive. Plan to leave patient intubated overnight and we will assess for extubation if he remains stable. Allergies Allergy/AdvReac Type Severity Reaction Status Date / Time Sulfa (Sulfonamide Allergy Intermediate Rash Verified 03/26/22 07:01 Antibiotics) vancomycin Allergy Intermediate LOWER Verified 03/26/22 07:01 EXTREMITY SWELLING, FEVER adhesive AdvReac Mild sKin Verified 03/26/22 07:01 tears-WITH TAPE gabapentin AdvReac Mild drowsy,conf Verified 03/26/22 07:01 used Home Medications Medication Instructions Recorded Confirmed Type cranberry 500 mg capsule 1,000 mg PO QAM 05/31/19 03/26/22 History lidocaine 5 % topical patch 1 patch TRANSDERMAL UD PRN ea 01/21/21 03/26/22 History hydralazine 25 mg tablet 25 mg PO TID 04/08/21 03/26/22 History metoprolol succinate 25 mg 25 mg PO QAM 04/18/21 03/26/22 History tablet,extended release 24 hr aspirin 81 mg tablet,delayed 81 mg PO QAM #30 tab 06/03/21 03/26/22 Rx release apixaban 2.5 mg tablet (Eliquis) 2.5 mg PO BID tab 07/08/21 03/26/22 History acetaminophen 500 mg capsule 1,000 mg PO TID 08/21/21 03/26/22 History alfuzosin 10 mg tablet,extended 10 mg PO QPM 08/21/21 03/26/22 History release 24 hr Saccharomyces boulardii 250 mg 250 mg PO QAM cap 11/24/21 03/26/22 History capsule (Florastor) azelastine 205.5 mcg (0.15 %) 2 spray INTRANASAL UD PRN 01/19/22 03/26/22 History nasal spray meclizine 25 mg tablet 25 mg PO UD PRN 01/19/22 03/26/22 History lisinopril 10 mg tablet 20 mg PO BID tab 02/12/22 03/26/22 History pantoprazole 40 mg tablet,delayed 40 mg PO BID #180 tab 02/12/22 03/26/22 Rx release tramadol 50 mg tablet 25 - 50 mg PO UD PRN #30 tab 03/02/22 03/26/22 Rx citalopram 40 mg tablet (Celexa) 40 mg PO QAM 03/26/22 03/26/22 History donepezil 23 mg tablet (Aricept) 23 mg PO HS 03/26/22 03/26/22 History Patient History Medical History (Updated 03/30/22 @ 04:13 by DESI Leone) Anxiety Atrial flutter DX OCT 2020> ELIQUIS/METOPROLOL -F/U DR POLI MEDEROS 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 BPH (benign prostatic hyperplasia) Cervical facet joint syndrome Cervical spinal stenosis Left C7 and 8 paresthesias CKD (chronic kidney disease) stage 3, GFR 30-59 ml/min follows PCP Diastolic heart failure Dyslipidemia GERD (gastroesophageal reflux disease) CONTROLLED Hearing difficulty History of COVID-19 01/22/22 tested at [facility] > headache, fatigue > resolved, no more symptoms History of kidney stones History of pancreatitis Last episode 05/2021 Hypertension Impaired fasting glucose Hgb A1C 6.8 on 11/25/20 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, HAS HARD TIME COMPREHENDING INFORMATION Nocturnal hypoxemia Occipital neuralgia of left side Sleep apnea CPAP Surgical History (Updated 03/27/22 @ 11:55 by Honorio Castro DO) H/O colonoscopy (06/2013) 02/2022 History of colon resection (03/26/22) Laparoscopic Sigmoid Colectomy with enterolysis (Not Applicable) - Honorio Castro DO History of cystoscopy History of difficult intubation CHOLECYSTECTOMY= 01/11/14= GLIDESCOPE #4 (2/2 DECREASED CERVICAL ROM) BUT HAD GRADE VIEW 1, MAC 4 WITH ANKLE SURGERY 11/09/14 PER [facility] RECORDS History of esophagogastroduodenoscopy (EGD) (09/2019) History of shoulder surgery Rt shoulder - 09/22/18 [facility] History of total knee replacement B/L WITH REVISIONS; LEFT TKA REVISION= 05/13/17= SAB X 2 ATTEMPTS + PNB AT [facility] Hx of cervical spine surgery ROM LIMITED FROM SIDE TO SIDE Hx of total ankle replacement RIGHT S/P cholecystectomy S/P ERCP 04/20/21 Dr. Pablo Garibay- 2 stones removed, 2 stents placed Squamous cell carcinoma of back resolved Family History Son Family history of diabetes mellitus Daughter Family history of diabetes mellitus Other No family history of adverse response to anesthesia No pertinent family history Denies family history of Ovarian cancer Prostate cancer Myocardial infarction Breast cancer Colorectal cancer Social History Smoking Status: Never smoker Second Hand Exposure: No; Do You Dip or Chew Tobacco: No; Tobacco Cessation Education Requested by Patient: No Hx Alcohol Use: No Hx Substance Use: No Preferred Language: Kyrgyz Communication Ability: Effective Visual Impairment: No Limitations Balance Clerk Required: No Beliefs That Will Affect Care: None marital status: Current Living Situation: Family Current Living Situation Comment: Lives with , caregivers current occupational status: 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 How many Children do You have: 3 Other Information That Helps Us Care for You: No Feels Safe at Home: Yes Safety Concerns: Feels Safe At This Time Childhood Exposure to Second-Hand Smoke: No caffeine: Yes during the past year weight has: decreased > 10 lbs Dental Care, Regularly: Yes Physical Activity Frequency: Daily Seatbelt Use: always Sunscreen Use: Yes (sometimes) Assistive Devices: None Assistive Devices Comment: INSTRUCTED TO BRING CPAP DOS Review of Systems Review of Systems: Unobtainable due to cognitive status and Unobtainable due to endotracheal tube Physical Exam Constitutional: + mechanically ventilated Sedated Eyes: PERRL, conjunctivae normal, anicteric sclerae ENMT: external ear and nose normal, oropharynx normal Neck: trachea midline, no thyromegaly Respiratory: normal respiratory effort, lungs clear to auscultation Cardiovascular: RRR, no murmur, no edema Rate/Rhythm: regular rate and r egular rhythm Heart Sounds: normal S1 and normal S2 Extremities: no edema Gastrointestinal (Abdomen): Abdomen edematous and distended. VONNIE drain x2. Ileostomy present Musculoskeletal: Unable to assess Skin: no rashes, warm and dry Neurologic: Unable to assess Psychiatric: Unable to assess Genitourinary: Indwelling Lozoya catheter Results & Data Results & Data ([facility]) Vital Signs (Past 12 Hours) Vital Signs Temp Pulse Resp BP BP Pulse Ox 03/29/22 16:41 183/83 H 97 03/29/22 16:37 38.1 C H 102 H 18 211/80 H 97 Coding Level of Care Code Critical Care 1st 30-74 mins Diagnoses Acute renal failure N17.9 Acute blood loss anemia D62 Hypertension I10 Hypertension type: essential hypertension History of colon resection Z90.49 Pneumoperitoneum K66.8 Perforated bowel K63.1 Colonic stricture K56.699 Osteoarthritis M19.90 Mild obstructive sleep apnea G47.33 Atrial flutter I48.3 Atrial flutter type: typical Anticoagulant long-term use Z79.01 GERD (gastroesophageal reflux disease) K21.9 (1) Hypertension Hypertension type: essential hypertension Qualified Code(s): I10 - Essential (primary) hypertension (2) Atrial flutter Atrial flutter type: typical Qualified Code(s): I48.3 - Typical atrial flutter
--- NOTE | 2022-03-29 23:25 | Operative Report ---
PG Post Operative Report Pre & Post Diagnosis Operation Date: 03/26/22 08:45 Pre-Op Diagnosis: Sigmoid Colon Stricture Post-Op Diagnosis: Sigmoid Colon Stricture Operation Date: 03/29/22 19:10 Pre-Op Diagnosis: Status post sigmoidectomy on 03/26/2022 perforated bowel Post-Op Diagnosis: Anastomotic perforation I identified the patient and participated in the time-out.: Yes Procedure Operation Date: 03/26/22 08:45 Actual Procedures p Laparoscopic Sigmoid Colectomy with enterolysis (Not Applicable) - Honorio Castro DO Operation Date: 03/29/22 19:10 Actual Procedures p Diagnostic Laparoscopy Converted to Laparotomy, Repair os Anastomic Perfo ration with Diverting Ileostomy, and Rigid Sigmoidoscopy(Not Applicable) - Honorio Castro DO Surgeon Honorio Castro DO Sociology Professor cat Vargas Estimated Blood Loss 100 Findings Consistent with Post-Op Diagnosis Specimens none Description of Procedure After informed consent was obtained the patient was taken to the operating room and placed in supine position. After successful intubation the previous drain was removed. Entire abdomen was shaved and sterilely prepped and draped as well as the perineum The patient was placed into a low lithotomy position. Because , according to radiology's interpretation of the CT scan the potential suspected perforation was in the gastric region I began by performing a laparoscopy. A supraumbilical incision was made with 11 blade scalpel and carried down through the soft tissue using cautery. The fascia was opened using cautery and two #0 Vicryl stay sutures were placed. Peritoneum was elevated with hemostats and incised under direct vision using a Metzenbaum scissor. A finger sweep was performed. A 12 mm Jennings trocar was placed and the abdomen was insufflated to 18 mmHg. Laparoscope was inserted and the abdomen examined in 360 degrees. An upper abdominal 5 mm port was placed. I began by using a grasper to evaluate the stomach. It was distended. We placed an NG tube which suctioned out bilious fluid. I did not see any inflammation pus etc. in the upper abdomen. Next I looked in the lower abdomen. There was some old blood but it was difficult to see into the pelvis. At this point I decided to convert to a laparotomy. I extended the camera port around the umbilicus and down to the pubic symphysis. This was opened using cautery. Once in the abdomen we finger fractionated some weak adhesions. We suctioned out a little bit of old blood from the pelvis. There was no foul odor. There was no succus or purulent fluid. In fact the anatomy looked rather pristine. Eventually I was able to make my way down to the anastomosis. On the anterior surface of the anastomosis there was a very small approximate 2-3 mm opening right on the anterior part of the staple line. We thoroughly irrigated out the pelvis. Again there was no spillage whatsoever. At this point I used 3-0 Monocryl in simple interrupted fashion to oversew the small area through serosal and mucosal layers. At this point we submerged the entire anastomosis under water and I clamped off the large bowel proximal to this. Rigid sigmoidoscopy was performed. The entire rectum and anastomosis were insufflated. There was no evidence of any further anastomotic leak whatsoever. Next I oversewed this again with 3-0 silk. Again we reinsufflated the entire pelvis under water with no evidence of any leak. We suctioned out the water. There was no evidence of any ischemia to the anastomosis and there was no tension on it. After I oversewed this we all changed our gowns and gloves. I ran the entire small bowel and there was no evidence of any other site of perforation. There was no ischemia anywhere. We used a total of 6 L of warm irrigation. There was adequate hemostasis. 2 #19 Farzad drains were placed 1 deep into the pelvis and brought out through a separate stab incision in the right lower quadrant secured the skin using 2-0 silk. A second Farzad drain was ran down along the left paracolic gutter into the suprapubic region near the anastomosis. It was also brought out through a left sided stab incision and secured with 2-0 silk. Next I made a circular incision in the right mid abdomen. Cautery was used to carry this down to the fascia where I made a cruciate incision. Peritoneum was opened and the incision was spread with finger fractionation. A [place] clamp was advanced through it. Small bowel on the antimesenteric surface was grasped about 15 inches proximal to the ileocecal valve. It was delivered through the incision. Next we made 1 final irrigation. We closed the fascia using O-looped PDS starting at either pole and running them and securing them in the midline. Soft tissue was irrigated and closed over a [place] drain with skin raudel. We used a stoma bridge through the mesentery of the small bowel and created a loop ileostomy using 3-0 Monocryl in Jordana fashion. The stoma bag was placed. Silver dressing gauze and tape were placed over the midline incision. The patient was transferred to the intensive care unit intubated in guarded condition. My physician study assistant was present through the entire case and was instrumental in assistance throughout all aspects of the case including exposure for my repair, ileostomy formation wound closure and dressing placement. I attest to the content of the Intraoperative Record and any orders documented therein. Any exceptions are noted below.
[2022-03-29] MEDS: propofoL 1,000 MG/100 ML VIAL IV SCH (23:35)
[2022-03-29] MEDS ORDERED: ACETAMINOPHEN 10MG/ML PEDIATRIC DOSING IV SCH (23:45)
[2022-03-29] MEDS ORDERED: STAT IV Infusion **Titration per Protocol STA (23:45)
[2022-03-29] MEDS ORDERED: fentaNYL citrate 2,500 MCG/250 ML BAG IV SCH (23:45)
[2022-03-29] MEDS ORDERED: PIPERACILLIN/TAZOBACTAM 3.375 GM in DEXTROSE 5% 100 ML IV SCH (23:45)
[2022-03-29] MEDS: ALFUZOSIN HCL 10 MG TAB PO SCH (23:46)
[2022-03-29] MEDS: DONEPEZIL HCL 10 MG TAB PO SCH (23:46)
[2022-03-30] MEDS: LACTATED RINGER'S 1,000 ML IV SCH ×4 (00:01→23:39)
[2022-03-30] MEDS: ACETAMINOPHEN 1,000 MG/100 ML VIAL IV SCH ×4 (00:03→23:13)
[2022-03-30] MEDS: PIPERACILLIN/TAZOBACTAM 3.375 GM in DEXTROSE 5% 100 ML IV SCH ×4 (00:03→23:12)
[2022-03-30 00:09] LABS: iSTAT Allen Test Pass; iSTAT Art Bld Gas pCO2 Correct 45 mmHg (35-46); iSTAT Art Bld Gas pH Corrected 7.302 (7.35-7.45); iSTAT Arterial Blood Gas HCO3 22 meg/L (19-24); iSTAT Arterial Blood Gas pCO2 46 mmHg (35-46); iSTAT Arterial Blood Gas pH 7.29 (7.35-7.45); iSTAT Arterial Blood Gas pO2 67 mmHg (80-95); iSTAT Arterial Blood Gas pO2 C 64; iSTAT Carbon Dioxide 24 mmol/L (24-31); iSTAT FiO2 30 %; iSTAT Hematocrit 28 % (42-52); iSTAT Hemoglobin 9.5 g/dl (14.0-18.0); iSTAT Site L Radial; iSTAT Sodium 136 mmol/L (135-144)
[2022-03-30] MEDS: PROPOFOL BOLUS FROM BAG IV PRN ×2 (00:19→04:58)
--- NOTE | 2022-03-30 00:23 | Anesthesiology Progress Note ---
Date of Service March 30, 2022 Anesthesia Post Procedure Vital Signs Vital Signs: Temp Pulse Pulse Pulse Resp BP BP 03/29/22 23:56 20 03/29/22 23:24 89 18 183/61 H 03/29/22 23:15 83 93 H 17 188/67 H 03/29/22 23:05 36.4 C L 89 18 182/67 H 03/29/22 16:41 183/83 H 03/29/22 16:37 38.1 C H 102 H 18 211/80 H 03/29/22 07:57 36.7 C 94 H 18 182/82 H Pulse Ox 03/29/22 23:56 03/29/22 23:24 95 03/29/22 23:15 96 03/29/22 23:05 96 03/29/22 16:41 97 03/29/22 16:37 97 03/29/22 07:57 92 Pain Intensity Left Posterior Abdomen: Pain Intensity: 5 Abdomen: Pain Intensity: 6 Transfer of Care Handoff Completed per policy Notes Patient Amnestic to Procedure: Yes Nausea / Vomiting: adequately controlled Pain: adequately controlled Airway Patency, RR, SpO2: stable & adequate BP & HR: stable & adequate Hydration State: stable & adequate Anesthetic Complications: no major complications apparent (Not reversed. Pt sedated and placed on vent in SICU. VSS. Further care as per surgeon and ICU staff.)
[2022-03-30 00:25] LABS: Hematocrit (blood only) 30.8 % (42-52); Hemoglobin 10.4 g/dL (14.0-18.0); Mean Corpuscular Hemoglobin 31.9 pg (25-34); Mean Corpuscular Hgb Conc 33.8 g/dL (32-36); Mean Corpuscular Volume 94.5 fL (80-100); Mean Platelet Volume 8.7 fL (7.4-10.4); Platelet Count 148 K/uL (130-400); RDW Standard Deviation 51.3 fL (36.4-46.3); Red Blood Count 3.26 M/uL (4.7-6.1); White Blood Count 2.81 K/uL (4.8-10.8)
[2022-03-30 00:40] LABS: BUN Creatinine Ratio 13.2 (10-20); Calcium 7.8 mg/dl (8.5-10.1); Creatinine Clr Calc Pharmacy 42.7 ml/min; Est GFR (African American) 61.1 ml/min; Est GFR (Non-African American) 52.8 ml/min; Magnesium 1.5 mg/dl (1.7-2.4); Potassium 4.1 mmol/L (3.5-5.1)
--- NOTE | 2022-03-30 00:49 | Communication Note ---
Date of Service: March 30, 2022 Patient's postoperative chest x-ray shows no evidence of pneumothorax. Postoperative labs reviewed white blood cell count is 2.8. Hemoglobin and hematocrit are 10.4 and 30.8. Platelet count is noted to be within normal range at 148,000. Postoperative ABG shows a pH of 7.29 with a PCO2 of 46 and a PO2 of 67. Bicarbonate level was noted to be 22. Postoperative chemistry profile shows sodium is 134 with a potassium of 4.1. His BUN and creatinine are both noted to be within the normal range as well. Magnesium is noted to be 1.5 Discussed with the ICU staff. Due to his ABG results they have increased the ventilator rate. ICU staff notes they will order repeat labs for the morning. We will continue to monitor closely.
[2022-03-30] MEDS: MAGNESIUM SULFATE / D5W 1 GM/100 ML BAG IV SCH ×3 (01:27→05:27)
[2022-03-30] MEDS: propofoL 1,000 MG/100 ML VIAL IV SCH (04:59)
[2022-03-30 06:11] LABS: Eosinophils # (auto) 0.01 K/uL (0-0.5); Eosinophils % (auto) 0.3 %; Hematocrit (blood only) 28.4 % (42-52); Hemoglobin 9.5 g/dL (14.0-18.0); Immature Granulocytes # (auto) 0.01 K/uL (0.00-0.02); Immature Granulocytes % (auto) 0.3 %; Lymphocytes # (auto) 0.38 K/uL (1.2-3.4); Lymphocytes % (auto) 10.3 %; Mean Corpuscular Hemoglobin 31.5 pg (25-34); Mean Corpuscular Hgb Conc 33.5 g/dL (32-36); Monocytes # (auto) 0.42 K/uL (0.11-0.59); Monocytes % (auto) 11.4 %; Neutrophils # (auto) 2.86 K/uL (1.4-6.5); Neutrophils % (auto) 77.7 %; Platelet Count 151 K/uL (130-400); RDW Coefficient of Variation 15.1 % (11.5-14.5); RDW Standard Deviation 51.6 fL (36.4-46.3); Red Blood Count 3.02 M/uL (4.7-6.1); White Blood Count 3.68 K/uL (4.8-10.8)
[2022-03-30 06:40] LABS: BUN Creatinine Ratio 13.2 (10-20); Calcium 7.8 mg/dl (8.5-10.1); Creatinine Clr Calc Pharmacy 40.1 ml/min; Est GFR (African American) 56.6 ml/min; Est GFR (Non-African American) 48.8 ml/min; Magnesium 2.1 mg/dl (1.7-2.4); Phosphorus 1.7 mg/dl (2.5-4.9); Potassium 4.1 mmol/L (3.5-5.1)
--- NOTE | 2022-03-30 06:53 | XRay Report ---
XR chest 1V portable HISTORY: 89 years-old Male ET tube postion acute respiratory failure COMPARISON: Chest radiograph 03/29/2022 TECHNIQUE: Portable AP view of the chest FINDINGS: Endotracheal tube overlies the midline, 3.2 cm superior to the trevon. Enteric tube is present with d istal tip projected over the stomach. Mild right hemidiaphragmatic elevation. Cardiomegaly. No pneumo thorax. Trace pleural effusions are noted with mild bibasilar densities. No overt pulmonary edema. De generative changes of the spine and left shoulder. Reverse right shoulder total joint arthroplasty. C holecystectomy. Decreased amount of pneumoperitoneum. Lumbar levoscoliosis. IMPRESSION: 1. Endotracheal and enteric tube placement as above. 2. Trace pleural effusions with mild bibasilar atelectasis. 3. Decreased pneumoperitoneum compared to the prior study. ACT 112: Negative or not required by law. The above report was generated using voice recognition software. It may contain grammatical, syntax o r spelling errors. Electronically signed by: Brayden Gonsalez M.D. 03/30/2022 6:51 AM
[2022-03-30] MEDS: METOPROLOL TARTRATE 25 MG TAB PO SCH ×3 (07:29→21:02)
--- NOTE | 2022-03-30 07:34 | Critical Care Progress Note ---
Date of Service March 30, 2022 Assessment & Plan (1) Perforated bowel: Plan: Reason Critically Ill: 89-year-old male POD 3 for sigmoidectomy, now presents to the ICU following a ex lap with repair of perforated anastomosis of the sigmoid colon and diverting ileostomy. Remains mechanically ventilated postop. Neuro - Sedation: Propofol/fentanyl. Sedation vacation this morning with evaluation for SVT. Hx of dementia. Continue delirium precautions. Dementiacontinue Aricept when appropriate Cardiac - Remains hemodynamically stable postop without need for vasopressors. Atrial fluttercurrently normal sinus rhythm Hold apixaban given surgery -Continue MTP -Continuous monitoring on telemetry HTNcontinue hydralazine, MDP. Hold lisinopril given VIMAL Respiratory - History of ELIANA. Now mechanically ventilated following surgery. -SBT today -Continuous monitoring pulse ox and end-tidal CO2 GI - Pneumoperitoneum/perforation of anastomosismanagement per surgery. Patient recently underwent sigmoidectomy for colon stricture which was elective and was POD 3 -Pneumoperitoneum noted on chest x-ray 03/29 and he went for CTA which identified free air in the abdomen -Now presents to the ICU postop for ex lap with repair of perforated anastomosis and diverting ileostomy. VONNIE drain x2 managed per surgical team -N.p.o. -NG tube to low intermittent suction -Famotidine -Follow surgical recommendations RENAL/LYTES - AKIimproving. -Continue to monitor routine BMPs and replete electrolytes as indicated -Maintain maps greater than 65 --Hold lisinopril -Avoid nephrotoxins renally adjust medications -Continue with IV fluid resuscitation - Foleystrict I's and O's ENDO - No history of diabetes or thyroid disease. ICU hyperglycemic protocol HEME - Acute blood loss anemiafollowing initial surgery. Patient hemoglobin stabilized following transfusion -Repeat hemoglobin 9.5. Monitor with routine CBCs for now ID - Continue with empiric Zosyn for intra-abdominal coverage. No clear evidence of infectious process at this time LINES/IV ACCESS - Peripheral IVs, NG tube, ET tube DVT PROPHYLAXIS - SCDs, hold anticoagulation given recent surgery I have personally spent 41 minutes of critical care time in the direct management of this patient. This is a life/limb threatening event. This includes time spent evaluating patient, direct bedside care, chart review, placing orders, interpretation of diagnostic studies, discussion with consultants, patient, and family members, as well as other required patient management activities. This time is exclusive of all separately billable procedures, and teaching time and separate from and in addition to any other critical care service time. Thank you for allowing us to participate in the care of this patient. Please refer to my attending physician's documentation for any further recommendations. (2) Acute renal failure: (3) Acute blood loss anemia: (4) Hypertension: (5) History of colon resection: (6) Pneumoperitoneum: (7) Colonic stricture: (8) Osteoarthritis: (9) Mild obstructive sleep apnea: (10) Atrial flutter: (11) Anticoagulant long-term use: (12) GERD (gastroesophageal reflux disease): Admission and Anticipated Discharge Date Admission Date: March 26, 2022 Subjective Patient seen and examined. He is currently on propofol and fentanyl infusions. He is sedated, but responds to painful stimuli. No significant events this morning. The anesthesia team decided to leave him on a ventilator due to the complexity of his abdominal surgery. Review of Systems Review of Systems: Unobtainable due to endotracheal tube and Unobtainable due to reduced consciousness Physical Exam Constitutional: + mechanically ventilated Sedated Eyes: PERRL, conjunctivae normal, anicteric sclerae ENMT: external ear and nose normal, oropharynx normal Neck: trachea midline, no thyromegaly Respiratory: normal respiratory effort, lungs clear to auscultation Cardiovascular: RRR, no murmur, no edema Rate/Rhythm: regular rate and regular rhythm Heart Sounds: normal S1 and normal S2 Extremities: no edema Gastrointestinal (Abdomen): Abdomen edematous and distended. VONNIE drain x2. Ileostomy present. Tender to palpation. Musculoskeletal: Unable to assess Skin: no rashes, warm and dry Neurologic: Unable to assess Psychiatric: Unable to assess Genitourinary: Indwelling Lozoya catheter Results & Data Results & Data ([facility]) Vital Signs (Past 12 Hours) Vital Signs Temp Pulse Pulse Resp BP BP Pulse Ox 03/30/22 06:15 77 20 120/53 L 96 03/30/22 06:00 78 20 125/53 L 96 03/30/22 05:45 77 20 116/51 L 03/30/22 05:30 78 20 117/48 L 03/30/22 05:15 79 20 115/49 L 03/30/22 05:00 77 20 109/49 L 03/30/22 04:45 81 20 125/59 L 03/30/22 04:30 77 20 118/52 L 03/30/22 04:15 75 20 03/30/22 04:00 36.5 C 78 20 124/52 L 96 03/30/22 03:45 75 20 97 03/30/22 03:30 73 20 115/54 L 96 03/30/22 03:15 75 20 124/51 L 97 03/30/22 03:00 73 20 116/55 L 03/30/22 02:45 73 20 124/56 L 97 03/30/22 02:30 74 20 118/51 L 97 03/30/22 02:15 75 20 114/50 L 97 03/30/22 01:45 74 20 112/47 L 03/30/22 01:30 77 20 122/50 L 96 03/30/22 01:15 74 20 115/52 L 96 03/30/22 01:00 74 20 118/49 L 95 03/30/22 00:45 76 20 109/47 L 95 03/30/22 00:30 79 20 135/50 L 94 03/30/22 00:15 83 20 146/56 H 93 03/30/22 00:00 89 20 178/60 H 94 03/29/22 23:56 20 03/29/22 23:55 91 H 20 185/69 H 94 03/29/22 23:24 89 18 183/61 H 95 03/29/22 23:15 83 93 H 17 188/67 H 96 03/29/22 23:05 36.4 C L 89 18 182/67 H 96 Coding Level of Care Code Critical Care 1st 30-74 mins Diagnoses Perforated bowel K63.1 Acute renal failure N17.9 Acute blood loss anemia D62 Hypertension I10 Hypertension type: essential hypertension History of colon resection Z90.49 Pneumoperitoneum K66.8 Colonic stricture K56.699 Osteoarthritis M19.90 Mild obstructive sleep apnea G47.33 Atrial flutter I48.3 Atrial flutter type: typical Anticoagulant long-term use Z79.01 GERD (gastroesophageal reflux disease) K21.9 Time Spent (min) 41 (1) Hypertension Hypertension type: essential hypertension Qualified Code(s): I10 - Essential (primary) hypertension (2) Atrial flutter Atrial flutter type: typical Qualified Code(s): I48.3 - Typical atrial flutter
[2022-03-30] MEDS: FAMOTIDINE 20 MG in SYRINGE 3 ML IV SCH (07:37)
[2022-03-30] MEDS ORDERED: FAMOTIDINE 20 MG in SYRINGE 3 ML IV SCH (09:00)
--- NOTE | 2022-03-30 09:52 | Surgery Progress Note ---
Date of Service March 30, 2022 Assessment & Plan Admission and Anticipated Discharge Date Admission Date: March 26, 2022 Subjective pt seen. doing well so far. still intubated/sleeping. Physical Exam Physical Exam: intubated VONNIE's serous good urine OP labs reviewed. stoma pink/viable with some liquid stool preparing to extubate today Results & Data ([facility]) Vital Signs (Past 12 Hours) Vital Signs Temp Pulse Pulse Resp BP BP Pulse Ox 03/30/22 08:34 37.5 C 03/30/22 07:40 96 H 18 96 03/30/22 07:15 81 20 95 03/30/22 06:15 77 20 120/53 L 96 03/30/22 06:00 78 20 125/53 L 96 03/30/22 05:45 77 20 116/51 L 03/30/22 05:30 78 20 117/48 L 03/30/22 05:15 79 20 115/49 L 03/30/22 05:00 77 20 109/49 L 03/30/22 04:45 81 20 125/59 L 03/30/22 04:30 77 20 118/52 L 03/30/22 04:15 75 20 03/30/22 04:00 36.5 C 78 20 124/52 L 96 03/30/22 03:45 75 20 97 03/30/22 03:30 73 20 115/54 L 96 03/30/22 03:15 75 20 124/51 L 97 03/30/22 03:00 73 20 116/55 L 03/30/22 02:45 73 20 124/56 L 97 03/30/22 02:30 74 20 118/51 L 97 03/30/22 02:15 75 20 114/50 L 97 03/30/22 01:45 74 20 112/47 L 03/30/22 01:30 77 20 122/50 L 96 03/30/22 01:15 74 20 115/52 L 96 03/30/22 01:00 74 20 118/49 L 95 03/30/22 00:45 76 20 109/47 L 95 03/30/22 00:30 79 20 135/50 L 94 03/30/22 00:15 83 20 146/56 H 93 03/30/22 00:00 89 20 178/60 H 94 03/29/22 23:56 20 03/29/22 23:55 91 H 20 185/69 H 94 03/29/22 23:24 89 18 183/61 H 95 03/29/22 23:15 83 93 H 17 188/67 H 96 03/29/22 23:05 36.4 C L 89 18 182/67 H 96 PG Care Time/CCT Total # of Minutes Spent Total Time Spent with Patient: Total time spent is greater than 50% in coordination of care (as documented) at patient's floor/unit and/or counseling patient: Coding Level of Care Code None
--- NOTE | 2022-03-30 13:33 | Hospitalist Progress Note ---
Date of Service March 30, 2022 Assessment & Plan (1) Perforated bowel: Plan: With return to the OR on 03/29 for exp lap converted to oral laparotomy with repair of perforation and diverting ileostomy, pod#1 - Presently NPO with NGT in place - VONNIE drain management per primary service - Diet advancement, pain control, abx as per primary - Would encourage use of IS when awake/alert and able to follow commands - Wean off supplemental O2 as able to keep sats >90% (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 Castro on 03/26/2022 with interval development of perforated bowel on 03/29 (3) Acute renal failure: Plan: - pt developed post op VIMAL, has stable electrolytes, and bicarb, likely ATN from prerenal issue due to low blood pressure - IVF administered and pt's renal function greatly improved/returned to baseline (4) Acute blood loss anemia: Plan: - Post operative anemia due to blood loss in setting of recent surgery - T&C and transfused by primary team, appears 2 units was ordered and transfused on 03/28 - Suspect dilutional component to hgb - H&H stable (5) Hypertension: Plan: - Uncontrolled presently s/p blood transfusion/fluids/BP meds held d/t VIMAL - Now that renal fxn has improved and is near baseline, Lisinopril and Hydralazine were resumed - PO meds back on hold d/t NPO status - IV Hydralazine 10mg q6h prn sbp>180 or dbp>100 (6) Atrial flutter: Plan: - Patient has a history of atrial flutter managed with Dr. Flores at [facility] [address] cardiology on metoprolol and Eliquis - Eliquis on hold d/t post-op anemia (7) Depression: Plan: - Continue Celexa (8) Dementia: Plan: - Continue Aricept Plan: No additional recommendations for this patient at present. Will continue to follow along. Repeat labs already in place for tomorrow. Would replete Phos (1.7 today), will do so if intensivists do not. Plan to be d/w Dr. Ceron. Admission and Anticipated Discharge Date Admission Date: March 26, 2022 Subjective Patient was seen on daily rounds today. Informed by RN on 6/19 that pt was having increased abdominal distention and discomfort which was directed back to general surgery given his post-operative status. Was then notified that he had developed a fever of 38.1C and was mildly tachycardic and hypertensive. Obtained a CXR and UA. Radiology notified RN directly that pt was found to have marked pneumoperitoneum characteristic of bowel perforation. Pt was taken back to the OR yesterday evening for exploratory laparoscopy, which turned into open laparotomy with repair of anastomotic perforation with diverting ileostomy. Pt was transferred to the ICU following this procedure. He is currently sedated, just recently extubated this morning at 0905 by intensivists. NGT in place. No concerns verbalized at this time by RN. Review of Systems Review of Systems: Sedated and unable to provide ROS Physical Exam Physical Exam: GENERAL: 89yo WD/WN elderly WM. NAD. NGT in place. LUNGS: Clear to auscultation bilaterally. No W/R/R. CARDIOVASCULAR: Regular rate and rhythm. No M/G/R. No JVD. ABDOMEN: Soft, minimal tenderness to palp, mildly distended. No rigidity. Laparotomy incision dressed. VONNIE drains visualized with serosanguineous output. : Lozoya in place-pale yellow urine noted in tubing/bag EXTREMITIES: No edema. Non-tender. Peripheral pulses +2/4. PSYCHIATRIC: Sedated, just extubated SKIN: Warm, dry, intact. Incision dressed as above. Results & Data Results & Data ([facility]) Vital Signs (Past 12 Hours) Vital Signs Temp Pulse Resp BP Pulse Ox 03/30/22 12:19 37.4 C 03/30/22 12:00 93 H 25 H 147/73 H 03/30/22 11:30 88 46 H 03/30/22 11:00 87 29 H 142/77 H 96 03/30/22 10:30 82 26 H 98 03/30/22 10:00 82 27 H 134/73 95 03/30/22 09:30 78 23 95 03/30/22 09:00 81 20 91 03/30/22 08:34 37.5 C 03/30/22 08:30 92 H 22 146/63 H 03/30/22 08:00 94 H 21 152/60 H 95 03/30/22 07:45 101 H 23 175/69 H 96 03/30/22 07:40 96 H 18 96 03/30/22 07:30 82 20 120/53 L 03/30/22 07:15 80 19 99 03/30/22 06:15 77 20 120/53 L 96 03/30/22 06:00 78 20 125/53 L 96 03/30/22 05:45 77 20 116/51 L 03/30/22 05:30 78 20 117/48 L 03/30/22 05:15 79 20 115/49 L 03/30/22 05:00 77 20 109/49 L 03/30/22 04:45 81 20 125/59 L 03/30/22 04:30 77 20 118/52 L 03/30/22 04:15 75 20 03/30/22 04:00 36.5 C 78 20 124/52 L 96 03/30/22 03:45 75 20 97 03/30/22 03:30 73 20 115/54 L 96 03/30/22 03:15 75 20 124/51 L 97 03/30/22 03:00 73 20 116/55 L 03/30/22 02:45 73 20 124/56 L 97 03/30/22 02:30 74 20 118/51 L 97 03/30/22 02:15 75 20 114/50 L 97 03/30/22 01:45 74 20 112/47 L 03/30/22 01:30 77 20 122/50 L 96 Laboratory Results 03/30/22 05:32 03/30/22 05:32 PG Care Time/CCT Total # of Minutes Spent Total Time Spent with Patient: Total time spent is greater than 50% in coordination of care (as documented) at patient's floor/unit and/or counseling patient: Coding Level of Care Code 26028 Subseq Hosp Care Lvl 2 Diagnoses Colonic stricture K56.699 Acute renal failure N17.9 Acute blood loss anemia D62 Hypertension I10 Hypertension type: essential hypertension Atrial flutter I48.3 Atrial flutter type: typical Depression F32.9 Dementia F03.90 Dementia behavioral disturbance: without behavioral disturbance Dementia type: unspecified type Perforated bowel K63.1 (1) Hypertension Hypertension type: essential hypertension Qualified Code(s): I10 - Essential (primary) hypertension (2) Atrial flutter Atrial flutter type: typical Qualified Code(s): I48.3 - Typical atrial flutter (3) Dementia Dementia behavioral disturbance: without behavioral disturbance Dementia type: unspecified type Qualified Code(s): F03.90 - Unspecified dementia without behavioral disturbance
[2022-03-30] MEDS ORDERED: SODIUM PHOSPHATE 3 MMOL/1 ML INFUSION IV STA (16:53)
[2022-03-30] MEDS ORDERED: CALCIUM GLUCONATE 10% 2,000 MG in DEXTROSE 5% 50 ML IV ONE (16:53)
[2022-03-30] MEDS ORDERED: STAT IV STA (16:53)
[2022-03-30] MEDS ORDERED: SODIUM PHOSPHATE 21 MMOL in DEXTROSE 5% 500 ML IV STA (16:59)
[2022-03-30] MEDS: fentaNYL citrate 100 MCG/2 ML VIAL IV PRN (23:12)
[2022-03-31] MEDS: fentaNYL citrate 100 MCG/2 ML VIAL IV PRN ×2 (03:07→07:29)
[2022-03-31 06:40] LABS: Basophils # (auto) 0.01 K/uL (0-0.2); Basophils % (auto) 0.2 %; Eosinophils # (auto) 0.09 K/uL (0-0.5); Eosinophils % (auto) 1.6 %; Hematocrit (blood only) 26.9 % (42-52); Hemoglobin 8.9 g/dL (14.0-18.0); Immature Granulocytes # (auto) 0.02 K/uL (0.00-0.02); Immature Granulocytes % (auto) 0.4 %; Lymphocytes # (auto) 0.53 K/uL (1.2-3.4); Lymphocytes % (auto) 9.6 %; Mean Corpuscular Hemoglobin 30.7 pg (25-34); Mean Corpuscular Hgb Conc 33.1 g/dL (32-36); Mean Corpuscular Volume 92.8 fL (80-100); Mean Platelet Volume 9.2 fL (7.4-10.4); Monocytes # (auto) 0.65 K/uL (0.11-0.59); Monocytes % (auto) 11.7 %; Neutrophils # (auto) 4.24 K/uL (1.4-6.5); Neutrophils % (auto) 76.5 %; Platelet Count 138 K/uL (130-400); RDW Coefficient of Variation 15.2 % (11.5-14.5); RDW Standard Deviation 51.8 fL (36.4-46.3); White Blood Count 5.54 K/uL (4.8-10.8)
[2022-03-31 06:46] LABS: BUN Creatinine Ratio 12.5 (10-20); Calcium 8.1 mg/dl (8.5-10.1); Creatinine Clr Calc Pharmacy 44.1 ml/min; Est GFR (African American) 57.1 ml/min; Est GFR (Non-African American) 49.3 ml/min; Magnesium 1.9 mg/dl (1.7-2.4); Phosphorus 2.8 mg/dl (2.5-4.9); Potassium 4.2 mmol/L (3.5-5.1)
[2022-03-31] MEDS: FAMOTIDINE 20 MG in SYRINGE 3 ML IV SCH (07:41)
[2022-03-31] MEDS: METOPROLOL TARTRATE 25 MG TAB PO SCH ×2 (07:41→20:56)
[2022-03-31] MEDS: PIPERACILLIN/TAZOBACTAM 3.375 GM in DEXTROSE 5% 100 ML IV SCH ×2 (07:42→16:56)
[2022-03-31] MEDS: ACETAMINOPHEN 1,000 MG/100 ML VIAL IV SCH ×2 (07:43→15:42)
[2022-03-31] MEDS: LACTATED RINGER'S 1,000 ML IV SCH ×2 (07:51→21:02)
[2022-03-31] MEDS ORDERED: MAGNESIUM SULFATE / D5W 1 GM/100 ML BAG IV ONE (08:12)
--- NOTE | 2022-03-31 08:16 | Critical Care Progress Note ---
Date of Service March 31, 2022 Assessment & Plan (1) Perforated bowel: Plan: Reason Critically Ill: 89-year-old male POD 3 for sigmoidectomy, now presents to the ICU following a ex lap with repair of perforated anastomosis of the sigmoid colon and diverting ileostomy. Neuro - Sedation: Patient with a history of dementia and occasional delirium. Continue delirium precautions and will hold on sedating medications unless absolutely necessary. Dementiacontinue Aricept when appropriate Cardiac - Remains hemodynamically stable postop without need for vasopressors. Atrial fluttercurrently normal sinus rhythm Hold apixaban given surgery -Continue MTP -Continuous monitoring on telemetry HTNcontinue hydralazine, MDP. Hold lisinopril given VIMAL History of A. fib/flutter. We will need to consider when to restart full dose anticoagulation given the potential for watershed infarct related to A. fib/flutter Respiratory - Extubated 03/30/2022. Continues to do well on 3 L nasal cannula. He does carry history of ELIANA. GI - Pneumoperitoneum/perforation of anastomosismanagement per surgery. Patient recently underwent sigmoidectomy for colon stricture which was elective and was POD 4 -Pneumoperitoneum noted on chest x-ray 03/29 and he went for CTA which identified free air in the abdomen -Now presents to the ICU postop for ex lap with repair of perforated anastomosis and diverting ileostomy. VONNIE drain x2 managed per surgical team -N.p.o. -Famotidine -Follow surgical recommendations -KUB ordered 03/31/2022 to evaluate for ileus or other pathology. RENAL/LYTES - AKIimproving. Continuous fluids as per general surgery team. We will replace magnesium and calcium today. - Foleystrict I's and O's ENDO - No history of diabetes or thyroid disease. ICU hyperglycemic protocol HEME - Acute blood loss anemiafollowing initial surgery. Patient hemoglobin stabilized following transfusion. Slight downward trend today to 8.9. No transfusion indicated at this time. ID - Continue with empiric Zosyn for intra-abdominal coverage. No clear evidence of infectious process at this time LINES/IV ACCESS - Peripheral IVs, NG tube, ET tube DVT PROPHYLAXIS - SCDs, hold anticoagulation given recent surgery Patient stable for downgrade out of the ICU. Thank you for allowing us to participate in the care of the patient. Please call questions. (2) Acute renal failure: (3) Acute blood loss anemia: (4) Hypertension: (5) History of colon resection: (6) Pneumoperitoneum: (7) Colonic stricture: (8) Osteoarthritis: (9) Mild obstructive sleep apnea: (10) Atrial flutter: (11) Anticoagulant long-term use: (12) GERD (gastroesophageal reflux disease): Admission and Anticipated Discharge Date Admission Date: March 26, 2022 Subjective Patient seen and examined complaining of abdominal pain. Remains hypertensive this morning. Nursing notes some minimal stool output via the ostomy. VONNIE drains continue to drain bile appearing fluid. Review of Systems Review of Systems: All systems reviewed & are unremarkable except as noted in HPI & below Physical Exam Physical Exam: Constitutional: Elderly and frail appearing male in mild distress. Eyes: Pupils are equal round and reactive to light. Conjunctivae are normal. Anicteric sclera. Ears nose, mouth and throat: Mallampati class 2. Normal posterior oropharynx. Uvula is midline. Neck: Trachea is midline. Visual inspection is normal. Respiratory: Coarse bilaterally with diminishment at the bases. Cardiovascular: Regular rate and rhythm. No murmurs. No edema. Gastrointestinal: Under to palpation distended. Ostomy noted with VONNIE drains in place. Musculoskeletal: No cyanosis. Patient is able to move all extremities. Skin: No rashes, warm dry and intact. Neurologic: No obvious focal neurological deficits seen. Psychiatric: Alert and oriented x3 with a euthymic affect. Results & Data Results & Data ([facility]) Vital Signs (Past 12 Hours) Vital Signs Temp Pulse Resp BP Pulse Ox 03/31/22 06:00 92 H 31 H 98 03/31/22 05:45 91 H 27 H 99 03/31/22 05:30 89 34 H 98 03/31/22 05:15 91 H 30 H 99 03/31/22 05:00 88 28 H 166/117 H 98 03/31/22 04:45 88 28 H 99 03/31/22 04:30 87 39 H 99 03/31/22 04:15 92 H 28 H 91 03/31/22 04:00 91 H 28 H 172/69 H 89 L 03/31/22 03:00 85 28 H 175/80 H 99 03/31/22 02:00 88 26 H 161/121 H 91 03/31/22 01:00 81 26 H 149/80 H 92 03/31/22 00:00 85 30 H 03/30/22 23:45 91 H 23 98 03/30/22 23:30 95 H 21 98 03/30/22 23:16 100 H 23 176/79 H 93 03/30/22 23:15 100 H 24 95 03/30/22 23:00 103 H 33 H 91 03/30/22 22:00 36.8 C 102 H 36 H 96 03/30/22 21:00 100 H 33 H 171/76 H 95 Coding Level of Care Code 32718 Subseq Hosp Care Lvl 3 Diagnoses Perforated bowel K63.1 Acute renal failure N17.9 Acute blood loss anemia D62 Hypertension I10 Hypertension type: essential hypertension History of colon resection Z90.49 Pneumoperitoneum K66.8 Colonic stricture K56.699 Osteoarthritis M19.90 Mild obstructive sleep apnea G47.33 Atrial flutter I48.3 Atrial flutter type: typical Anticoagulant long-term use Z79.01 GERD (gastroesophageal reflux disease) K21.9 (1) Hypertension Hypertension type: essential hypertension Qualified Code(s): I10 - Essential (primary) hypertension (2) Atrial flutter Atrial flutter type: typical Qualified Code(s): I48.3 - Typical atrial flutter
--- NOTE | 2022-03-31 09:12 | XRay Report ---
KUB HISTORY: Acute generalized abdominal pain with recent surgery post op illeus? COMPARISON: CT abdomen and pelvis 03/29/2022 FINDINGS: Midline skin raudel are noted with surgical drainage catheter is projecting over the pelvi s. Surgical clips of the abdominal right upper quadrant. Mild gaseous distention involves loops of preston th large and small bowel. Transverse dimension of the colon measures 6.8 cm. Transverse dimension of the small bowel measures up to 3.2 cm. No renal calculi. No ureteral calculi. No definite pneumatosi s or pneumoperitoneum identified on the supine view of the abdomen. Degenerative changes of the spine , pelvis and hips. No fracture. IMPRESSION: 1. Dilated air-filled loops of large and small bowel may represent postoperative ileus. Follow-up rec ommended. 2. Surgical drainage catheters project over the pelvis. ACT 112: Negative or not required by law. The above report was generated using voice recognition software. It may contain grammatical, syntax o r spelling errors. Electronically signed by: Brayden Gonsalez M.D. 03/31/2022 9:10 AM
[2022-03-31] MEDS: HYDROmorphone INJ 0.5 MG/0.5 ML SYR IV PRN ×4 (11:08→20:43)
--- NOTE | 2022-03-31 11:37 | Hospitalist Progress Note ---
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 Castro on 03/26/2022 with interval development of perforated bowel on 03/29 (3) Acute renal failure: Plan: - pt developed post op VIMAL, has stable electrolytes, and bicarb, likely ATN from prerenal issue due to low blood pressure - IVF administered and pt's renal function greatly improved/returned to baseline (4) Acute blood loss anemia: Plan: - Post operative anemia due to blood loss in setting of recent surgery - T&C and transfused 2 units PRBCs on 03/28 - H&H stable (5) Hypertension: Plan: - Uncontrolled presently s/p blood transfusion/fluids/BP meds held d/t VIMAL - Now that renal fxn has improved and is near baseline, Lisinopril and Hydralazine were resumed on 03/29 - PO meds back on hold d/t return to OR and NPO status (ice chips/sips for meds allowed) - IV Hydralazine 10mg q6h prn sbp>180 or dbp>100 - Can resume PO antihypertensive meds tomorrow if ok with surgery (6) Atrial flutter: Plan: - Patient has a history of atrial flutter managed with Dr. Flores at [facility] cardiology on metoprolol and Eliquis - Eliquis on hold d/t post-op anemia (7) Depression: Plan: - Continue Celexa (8) Dementia: Plan: - Continue Aricept Plan: No additional recommendations for this patient at present. Will continue to follow along. Repeat labs already in place for tomorrow. Electrolytes replaced by curator. Stable for transfer to PCU. Plan to be d/w Dr. Ceron. Admission and Anticipated Discharge Date Admission Date: March 26, 2022 Subjective Patient seen on rounds this morning. He remains in ICU but is planned for transfer to step down later today. He is currently a 1:1 due to him "picking at stuff" overnight as well as confusion this morning after receiving pain meds. Currently, he complaints of abdominal pain. NGT has been removed since he was seen yesterday. No vomiting reported. Ileostomy with some dark liquid stool in bag. Review of Systems Review of Systems: All systems reviewed and are unremarkable except as noted in HPI and below. Denies fever, chills, fatigue, headache, nasal congestion, sore throat, cough, chest pain, shortness of breath, palpitations, orthopnea, PND, n/v, constipation, dysuria, hematuria, frequency, back pain, joint pain or swelling, easy bruising or bleeding, skin lesions or rashes. Physical Exam Physical Exam: GENERAL: 89yo WD/WN elderly WM. NAD. NGT in place. LUNGS: Clear to auscultation bilaterally. No W/R/R. CARDIOVASCULAR: Regular rate and rhythm. No M/G/R. No JVD. ABDOMEN: Soft, minimal tenderness to palp, mildly distended. No rigidity. Laparotomy incision dressed. VONNIE drains visualized with serosanguineous output. Ileostomy visualized, stoma pink, dark liquid stool in bag. No audible bowel sounds to auscultation. : Lozoya in place-pale yellow urine noted in tubing/bag EXTREMITIES: No edema. Non-tender. Peripheral pulses +2/4. PSYCHIATRIC: Pleasant, cooperative. SKIN: Warm, dry, intact. Incision dressed as above. Results & Data Results & Data ([facility]) Vital Signs (Past 12 Hours) Vital Signs Temp Pulse Pulse Resp BP BP Pulse Ox 03/31/22 11:03 36.7 C 93 H 18 163/74 H 92 03/31/22 11:00 95 H 27 H 163/74 H 91 03/31/22 10:30 94 H 25 H 153/75 H 90 03/31/22 10:00 91 H 27 H 156/78 H 90 03/31/22 09:30 89 27 H 157/91 H 95 03/31/22 09:00 88 27 H 95 03/31/22 08:49 88 27 H 166/100 H 97 03/31/22 08:00 94 H 29 H 98 03/31/22 07:00 36.7 C 95 H 31 H 96 03/31/22 06:51 93 H 30 H 98 03/31/22 06:00 92 H 31 H 98 03/31/22 05:45 91 H 27 H 99 03/31/22 05:30 89 34 H 98 03/31/22 05:15 91 H 30 H 99 03/31/22 05:00 88 28 H 166/117 H 98 03/31/22 04:45 88 28 H 99 03/31/22 04:30 87 39 H 99 03/31/22 04:15 92 H 28 H 91 03/31/22 04:00 91 H 28 H 172/69 H 89 L 03/31/22 03:00 85 28 H 175/80 H 99 03/31/22 02:00 88 26 H 161/121 H 91 03/31/22 01:00 81 26 H 149/80 H 92 03/31/22 00:00 85 30 H 03/30/22 23:45 91 H 23 98 Laboratory Results 03/31/22 05:52 03/31/22 05:52 Diagnostic Findings KUB X-Ray 03/31/22 08:07 KUB HISTORY: Acute generalized abdominal pain with recent surgery post op illeus? COMPARISON: CT abdomen and pelvis 03/29/2022 FINDINGS: Midline skin raudel are noted with surgical drainage catheter is projecting over the pelvis. Surgical clips of the abdominal right upper quadrant. Mild gaseous distention involves loops of both large and small bowel. Transverse dimension of the colon measures 6.8 cm. Transverse dimension of the small bowel measures up to 3.2 cm. No renal calculi. No ureteral calculi. No definite pneumatosis or pneumoperitoneum identified on the supine view of the abdomen. Degenerative changes of the spine, pelvis and hips. No fracture. IMPRESSION: 1. Dilated air-filled loops of large and small bowel may represent postoperative ileus. Follow-up recommended. 2. Surgical drainage catheters project over the pelvis. ACT 112: Negative or not required by law. The above report was generated using voice recognition software. It may contain grammatical, syntax or spelling errors. Electronically signed by: Brayden Gonsalez M.D. 03/31/2022 9:10 AM PG Care Time/CCT Total # of Minutes Spent Total Time Spent with Patient: Total time spent is greater than 50% in coordination of care (as documented) at patient's floor/unit and/or counseling patient: Coding Level of Care Code 25346 Subseq Hosp Care Lvl 2 Diagnoses Perforated bowel K63.1 Colonic stricture K56.699 Acute renal failure N17.9 Acute blood loss anemia D62 Hypertension I10 Hypertension type: essential hypertension Atrial flutter I48.3 Atrial flutter type: typical Depression F32.9 Dementia F03.90 Dementia behavioral disturbance: without behavioral disturbance Dementia type: unspecified type (1) Hypertension Hypertension type: essential hypertension Qualified Code(s): I10 - Essential (primary) hypertension (2) Atrial flutter Atrial flutter type: typical Qualified Code(s): I48.3 - Typical atrial flutter (3) Dementia Dementia behavioral disturbance: without behavioral disturbance Dementia type: unspecified type Qualified Code(s): F03.90 - Unspecified dementia without behavioral disturbance
--- NOTE | 2022-03-31 12:36 | Surgery Progress Note ---
Date of Service March 31, 2022 Assessment & Plan (1) Perforated bowel: Plan: pod 2 from takeback/ileostomy clinically improving. will try clear liquids..more for comfort. high risk for ileus. ok to get OOB today Admission and Anticipated Discharge Date Admission Date: March 26, 2022 Subjective pt seen. alert. states he is feeling much better today. Physical Exam Physical Exam: alert. hoarse but no labored breathing. wants to get out of bed. stoma viable. bilious output abd: slightly distended. midline incision looks good. both VONNIE's serous. Results & Data ([facility]) Vital Signs (Past 12 Hours) Vital Signs Temp Pulse Pulse Resp BP BP Pulse Ox 03/31/22 12:04 36.5 C 92 H 18 146/80 H 97 03/31/22 11:03 36.7 C 93 H 18 163/74 H 92 03/31/22 11:00 95 H 27 H 163/74 H 91 03/31/22 10:30 94 H 25 H 153/75 H 90 03/31/22 10:00 91 H 27 H 156/78 H 90 03/31/22 09:30 89 27 H 157/91 H 95 03/31/22 09:00 88 27 H 95 03/31/22 08:49 88 27 H 166/100 H 97 03/31/22 08:00 94 H 29 H 98 03/31/22 07:00 36.7 C 95 H 31 H 96 03/31/22 06:51 93 H 30 H 98 03/31/22 06:00 92 H 31 H 98 03/31/22 05:45 91 H 27 H 99 03/31/22 05:30 89 34 H 98 03/31/22 05:15 91 H 30 H 99 03/31/22 05:00 88 28 H 166/117 H 98 03/31/22 04:45 88 28 H 99 03/31/22 04:30 87 39 H 99 03/31/22 04:15 92 H 28 H 91 03/31/22 04:00 91 H 28 H 172/69 H 89 L 03/31/22 03:00 85 28 H 175/80 H 99 03/31/22 02:00 88 26 H 161/121 H 91 03/31/22 01:00 81 26 H 149/80 H 92 PG Care Time/CCT Total # of Minutes Spent Total Time Spent with Patient: Total time spent is greater than 50% in coordination of care (as documented) at patient's floor/unit and/or counseling patient: Coding Level of Care Code None Diagnoses Perforated bowel K63.1
[2022-04-01] MEDS: ACETAMINOPHEN 1,000 MG/100 ML VIAL IV SCH ×4 (00:06→23:15)
[2022-04-01] MEDS: hydrALAZINE HCL 20 MG/ML VIAL IV PRN ×4 (00:06→21:41)
[2022-04-01] MEDS: PIPERACILLIN/TAZOBACTAM 3.375 GM in DEXTROSE 5% 100 ML IV SCH ×4 (00:09→23:33)
[2022-04-01] MEDS ORDERED: hydrALAZINE HCL 20 MG/ML VIAL IV STA (04:35)
[2022-04-01] MEDS: HYDROmorphone INJ 0.5 MG/0.5 ML SYR IV PRN ×6 (05:08→21:39)
[2022-04-01] MEDS: LACTATED RINGER'S 1,000 ML IV SCH ×2 (06:01→16:05)
[2022-04-01] MEDS: METOPROLOL TARTRATE 25 MG TAB PO SCH ×2 (07:39→21:12)
[2022-04-01 08:24] LABS: Basophils # (auto) 0.01 K/uL (0-0.2); Basophils % (auto) 0.2 %; Eosinophils # (auto) 0.03 K/uL (0-0.5); Eosinophils % (auto) 0.6 %; Hematocrit (blood only) 26.6 % (42-52); Hemoglobin 8.9 g/dL (14.0-18.0); Immature Granulocytes # (auto) 0.02 K/uL (0.00-0.02); Immature Granulocytes % (auto) 0.4 %; Lymphocytes # (auto) 0.57 K/uL (1.2-3.4); Lymphocytes % (auto) 11.7 %; Mean Corpuscular Hemoglobin 31.3 pg (25-34); Mean Corpuscular Hgb Conc 33.5 g/dL (32-36); Mean Corpuscular Volume 93.7 fL (80-100); Mean Platelet Volume 9.1 fL (7.4-10.4); Monocytes # (auto) 0.41 K/uL (0.11-0.59); Monocytes % (auto) 8.4 %; Neutrophils # (auto) 3.85 K/uL (1.4-6.5); Neutrophils % (auto) 78.7 %; Platelet Count 171 K/uL (130-400); RDW Coefficient of Variation 15.2 % (11.5-14.5); RDW Standard Deviation 52.2 fL (36.4-46.3); Red Blood Count 2.84 M/uL (4.7-6.1); White Blood Count 4.89 K/uL (4.8-10.8)
[2022-04-01 08:25] LABS: Calcium 8.1 mg/dl (8.5-10.1); Creatinine Clr Calc Pharmacy 50.1 ml/min; Est GFR (African American) 65.7 ml/min; Est GFR (Non-African American) 56.7 ml/min; Magnesium 1.8 mg/dl (1.7-2.4); Phosphorus 2.2 mg/dl (2.5-4.9); Potassium 3.7 mmol/L (3.5-5.1)
[2022-04-01] MEDS: FAMOTIDINE 20 MG in SYRINGE 3 ML IV SCH (08:32)
--- NOTE | 2022-04-01 08:40 | Surgery Progress Note ---
Date of Service April 01, 2022 Assessment & Plan (1) Perforated bowel: Plan: Doing okay clinically but waiting for full return of bowel function which I predict would be slow all things considered. Keep him on clear liquids for now. We will consult physical therapy. I think he will turn the corner once his bowels start functioning better. Admission and Anticipated Discharge Date Admission Date: March 26, 2022 Subjective Patient seen. Having some abdominal discomfort. Tolerating clear liquids. No nausea or vomiting. Physical Exam Physical Exam: Alert and oriented no acute distress Stoma viable with bilious output. Also a large amount of gas. Abdomen still distended mildly tympanitic. Incisions all look good. Drains both with serosanguineous output Results & Data ([facility]) Vital Signs (Past 12 Hours) Vital Signs Temp Pulse Resp BP BP Pulse Ox 04/01/22 07:15 36.7 C 92 H 18 178/69 H 96 04/01/22 05:41 101 H 16 174/71 H 04/01/22 03:51 36.6 C 92 H 22 192/81 H 98 04/01/22 01:30 96 H 16 176/69 H 97 03/31/22 23:06 36.9 C 85 20 191/85 H 97 PG Care Time/CCT Total # of Minutes Spent Total Time Spent with Patient: Total time spent is greater than 50% in coordination of care (as documented) at patient's floor/unit and/or counseling patient: Coding Level of Care Code None Diagnoses Perforated bowel K63.1
--- NOTE | 2022-04-01 13:13 | Hospitalist Progress Note ---
Date of Service April 01, 2022 Assessment & Plan (1) Perforated bowel: Plan: With return to the OR on 03/29 for exp lap converted to oral laparotomy with repair of perforation and diverting ileostomy, pod#2 - VONNIE drain management per primary service - Diet advancement, pain control, abx as per primary - Would encourage use of IS when awake/alert and able to follow commands - Wean off supplemental O2 as able to keep sats >90%--documented that he is now on room air - Post op ileus noted on KUB from 03/31, advised repeat on 04/01, but one not ordered by primary service - Tolerating clear liquid diet thus far, no vomiting (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 Castro on 03/26/2022 with interval development of perforated bowel on 03/29 (3) Acute renal failure: Plan: - pt developed post op VIMAL, has stable electrolytes, and bicarb, likely ATN from prerenal issue due to low blood pressure - IVF administered and pt's renal function greatly improved/returned to baseline - Since he is tolerating oral intake, would advise stopping fluids (4) Acute blood loss anemia: Plan: - Post operative anemia due to blood loss in setting of recent surgery - T&C and transfused 2 units PRBCs on 03/28 - H&H stable (5) Hypertension: Plan: - Uncontrolled presently s/p blood transfusion/fluids/BP meds held d/t VIMAL - Now that renal fxn has improved and is near baseline, Lisinopril and Hydralazine were resumed on 03/29 - PO meds put back on hold d/t return to OR and NPO status - IV Hydralazine 10mg q6h prn sbp>180 or dbp>100 - Resume oral Lisinopril and Hydralazine today (04/01) (6) Atrial flutter: Plan: - Patient has a history of atrial flutter managed with Dr. Flores at [facility] cardiology on metoprolol and Eliquis - Eliquis on hold d/t post-op anemia (7) Depression: Plan: - Continue Celexa (8) Dementia: Plan: - Continue Aricept Plan: Recommendations outlined above. Plan to be d/w Dr. Ceron. Admission and Anticipated Discharge Date Admission Date: March 26, 2022 Subjective Patient seen on daily rounds this morning. Continues to state that he feels "no good" and c/o abdominal pain. He was medicated just prior to my visit with IV APAP. Remains a 1:1. Tolerating clear liquids. No vomiting. No other concerns verbalized by sitter director script. Review of Systems Review of Systems: All systems reviewed and are unremarkable except as noted in HPI and below. Denies fever, chills, fatigue, headache, nasal congestion, sore throat, cough, chest pain, shortness of breath, palpitations, orthopnea, PND, n/v, constipation, dysuria, hematuria, frequency, back pain, joint pain or swelling, easy bruising or bleeding, skin lesions or rashes. Physical Exam Physical Exam: GENERAL: 89yo WD/WN elderly WM. NAD. NGT in place. LUNGS: Clear to auscultation bilaterally. No W/R/R. CARDIOVASCULAR: Regular rate and rhythm. No M/G/R. No JVD. ABDOMEN: Soft, diffuse tenderness to palp, mild to moderately distended. No rigidity. Laparotomy incision dressed. VONNIE drains visualized with serosanguineous output. Ostomy site RLQ, stoma pink, dark liquid stool in bag. BS present in all quadrants but still hypoactive. : Lozoya in place-pale yellow urine noted in tubing/bag EXTREMITIES: No edema. Non-tender. Peripheral pulses +2/4. PSYCHIATRIC: Pleasant, cooperative. SKIN: Warm, dry, intact. Incision dressed as above. Large area of ecchymosis along right flank. Results & Data Results & Data ([facility]) Vital Signs (Past 12 Hours) Vital Signs Temp Pulse Pulse Resp BP BP Pulse Ox 04/01/22 11:13 36.4 C L 91 H 18 165/66 H 97 04/01/22 08:00 103 H 04/01/22 07:15 36.7 C 92 H 18 178/69 H 96 04/01/22 05:41 101 H 16 174/71 H 04/01/22 03:51 36.6 C 92 H 22 192/81 H 98 04/01/22 01:30 96 H 16 176/69 H 97 Laboratory Results 04/01/22 07:40 04/01/22 07:40 PG Care Time/CCT Total # of Minutes Spent Total Time Spent with Patient: Total time spent is greater than 50% in coordination of care (as documented) at patient's floor/unit and/or counseling patient: Coding Level of Care Code 00742 Subseq Hosp Care Lvl 2 Diagnoses Perforated bowel K63.1 Colonic stricture K56.699 Acute renal failure N17.9 Acute blood loss anemia D62 Hypertension I10 Hypertension type: essential hypertension Atrial flutter I48.3 Atrial flutter type: typical Depression F32.9 Dementia F03.90 Dementia behavioral disturbance: without behavioral disturbance Dementia type: unspecified type (1) Hypertension Hypertension type: essential hypertension Qualified Code(s): I10 - Essential (primary) hypertension (2) Atrial flutter Atrial flutter type: typical Qualified Code(s): I48.3 - Typical atrial f lutter (3) Dementia Dementia behavioral disturbance: without behavioral disturbance Dementia type : unspecified type Qualified Code(s): F03.90 - Unspecified dementia without behavioral disturbance
[2022-04-01] MEDS: lisinopril 20 MG TAB PO SCH (21:12)
[2022-04-02] MEDS: HYDROmorphone INJ 0.5 MG/0.5 ML SYR IV PRN ×6 (01:44→19:32)
[2022-04-02 06:55] LABS: Eosinophils # (auto) 0.04 K/uL (0-0.5); Eosinophils % (auto) 0.9 %; Hematocrit (blood only) 25.7 % (42-52); Hemoglobin 8.5 g/dL (14.0-18.0); Immature Granulocytes # (auto) 0.01 K/uL (0.00-0.02); Immature Granulocytes % (auto) 0.2 %; Lymphocytes # (auto) 0.44 K/uL (1.2-3.4); Lymphocytes % (auto) 10.4 %; Mean Corpuscular Hemoglobin 30.7 pg (25-34); Mean Corpuscular Hgb Conc 33.1 g/dL (32-36); Mean Corpuscular Volume 92.8 fL (80-100); Mean Platelet Volume 8.7 fL (7.4-10.4); Monocytes % (auto) 9.4 %; Neutrophils # (auto) 3.35 K/uL (1.4-6.5); Neutrophils % (auto) 79.1 %; Platelet Count 157 K/uL (130-400); RDW Coefficient of Variation 14.9 % (11.5-14.5); RDW Standard Deviation 50.9 fL (36.4-46.3); Red Blood Count 2.77 M/uL (4.7-6.1); White Blood Count 4.24 K/uL (4.8-10.8)
[2022-04-02] MEDS: PIPERACILLIN/TAZOBACTAM 3.375 GM in DEXTROSE 5% 100 ML IV SCH ×3 (07:36→23:41)
[2022-04-02] MEDS: lisinopril 20 MG TAB PO SCH ×2 (07:36→21:24)
[2022-04-02] MEDS: FAMOTIDINE 20 MG in SYRINGE 3 ML IV SCH (07:36)
[2022-04-02 07:38] LABS: BUN Creatinine Ratio 13.6 (10-20); Creatinine Clr Calc Pharmacy 51.9 ml/min; Est GFR (African American) 68.6 ml/min; Est GFR (Non-African American) 59.2 ml/min; Magnesium 1.7 mg/dl (1.7-2.4); Potassium 3.7 mmol/L (3.5-5.1)
[2022-04-02] MEDS: hydrALAZINE HCL 20 MG/ML VIAL IV PRN ×2 (07:43→16:35)
[2022-04-02] MEDS: METOPROLOL TARTRATE 25 MG TAB PO SCH ×2 (08:19→21:24)
--- NOTE | 2022-04-02 09:02 | Surgery Progress Note ---
Date of Service April 02, 2022 Assessment & Plan (1) Perforated bowel: Plan: Likely has postoperative ileus. I discussed with nursing to back off on his oral fluids and we will restart IV fluids at 80 cc an hour. I believe he will turn the corner once he gets better bowel function. If no improvement in bowel function over the next 24 hours we might need to consider TPN. Admission and Anticipated Discharge Date Admission Date: March 26, 2022 Subjective Patient seen. Somnolent and slightly confused. He is in no acute distress. Tolerating clear liquid diet with no nausea vomiting per nursing. Physical Exam Physical Exam: Alert but slightly disoriented. No acute distress Midline wound looks good with no drainage or sign of infection. Both drains with serous fluid. Stoma viable with moderate amount of bilious output. Positive bowel sounds but abdomen is distended Results & Data ([facility]) Vital Signs (Past 12 Hours) Vital Signs Temp Pulse Pulse Resp BP BP Pulse Ox 04/02/22 08:52 148/73 H 04/02/22 08:30 163/82 H 04/02/22 07:26 36.8 C 94 H 19 178/70 H 162/74 H 96 04/02/22 04:21 37 C 92 H 20 138/69 97 04/01/22 23:23 36.6 C 101 H 18 177/78 H 98 PG Care Time/CCT Total # of Minutes Spent Total Time Spent with Patient: Total time spent is greater than 50% in coordination of care (as documented) at patient's floor/unit and/or counseling patient: Coding Level of Care Code None Diagnoses Perforated bowel K63.1
[2022-04-02] MEDS ORDERED: MAGNESIUM SULFATE / D5W 1 GM/100 ML BAG IV ONE (11:20)
--- NOTE | 2022-04-02 11:28 | Hospitalist Progress Note ---
Date of Service April 02, 2022 Assessment & Plan (1) Perforated bowel: Plan: With return to the OR on 03/29 for exp lap converted to oral laparotomy with repair of perforation and diverting ileostomy, pod#4 - VONNIE drain management per primary service - Diet advancement, pain control, abx as per primary - Would encourage use of IS when awake/alert and able to follow commands - Wean off supplemental O2 as able to keep sats >90%--documented that he is now on room air - Post op ileus noted on KUB from 03/31, advised repeat on 04/01, but one not ordered by primary service - Per RN, diet changed back to NPO with ice chips allowed after surgical rounds on 04/02. Maintenance fluids resumed. 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 Castro on 03/26/2022 with interval development of perforated bowel on 03/29 (3) Acute renal failure: Plan: - pt developed post op VIMAL, has stable electrolytes, and bicarb, likely ATN from prerenal issue due to low blood pressure - IVF administered and pt's renal function greatly improved/returned to better than baseline of 1.6 (4) Acute blood loss anemia: Plan: - Post operative anemia due to blood loss in setting of recent surgery - T&C and transfused 2 units PRBCs on 03/28 - H&H stable-continue to trend-now with resuming fluids may have dilutional drop - Consider dose of Venofer (5) Hypertension: Plan: - Uncontrolled presently s/p blood transfusion/fluids/BP meds held d/t VIMAL - Now that renal fxn has improved and is near baseline, Lisinopril and Hydralazine were resumed on 03/29 - PO meds put back on hold d/t return to OR and NPO status - IV Hydralazine 10mg q6h prn sbp>180 or dbp>100 - Change Lisinopril to 40mg daily and can determine if ORAL Hydralazine needs resumed (6) Atrial flutter: Plan: - Patient has a history of atrial flutter managed with Dr. Flores at [facility] cardiology on metoprolol and Eliquis - Eliquis on hold d/t post-op anemia (7) Depression: Plan: - Continue Celexa (8) Dementia: Plan: - Continue Aricept Plan: Mag borderline at 1.7-ordered one gram of Mag Sulfate. Labs ordered for tomorrow. PT/OT. Will continue to follow along. Plan to be d/w Dr. Shahid. Admission and Anticipated Discharge Date Admission Date: March 26, 2022 Subjective Patient seen on daily rounds. He is resting on edge of bed, currently participating with therapy. Complaining of abdominal pain, just medicated prior to being seen. No n/v. Surgery concerned he has a persistent ileus, backed off clear liquids and reordered maintenance fluids. RN noted that IV APAP was discontinued, asking if it could be reordered. Ostomy site was leaking and bag was changed by nursing. Daughter is to come in later this afternoon to be taught how to change ostomy bag. Review of Systems Review of Systems: All systems reviewed and are unremarkable except as noted in HPI and below. Denies fever, chills, fatigue, headache, nasal congestion, sore throat, cough, chest pain, shortness of breath, palpitations, orthopnea, PND, n/v, constipation, dysuria, hematuria, frequency, back pain, joint pain or swelling, easy bruising or bleeding, skin lesions or rashes. Physical Exam Physical Exam: GENERAL: 89yo WD/WN elderly WM. NAD. NGT in place. LUNGS: Clear to auscultation bilaterally. No W/R/R. CARDIOVASCULAR: Regular rate and rhythm. No M/G/R. No JVD. ABDOMEN: Soft, diffuse tenderness to palp, mild to moderately distended. No rigidity. Laparotomy incision dressed. VONNIE drains visualized with serosanguineous output. Ostomy site RLQ, stoma pink, dark liquid stool in bag. BS present in all quadrants but still hypoactive. : Lozoya in place-pale yellow urine noted in tubing/bag EXTREMITIES: No edema. Non-tender. Peripheral pulses +2/4. PSYCHIATRIC: Pleasant, cooperative. SKIN: Warm, dry, intact. Incision dressed as above. Large area of ecchymosis along right flank. Results & Data Results & Data ([facility]) Vital Signs (Past 12 Hours) Vital Signs Temp Pulse Pulse Pulse Resp BP BP 04/02/22 08:52 148/73 H 04/02/22 08:30 163/82 H 04/02/22 08:00 102 H 04/02/22 07:26 36.8 C 94 H 19 178/70 H 162/74 H 04/02/22 04:21 37 C 92 H 20 138/69 04/01/22 23:23 36.6 C 101 H 18 177/78 H Pulse Ox 04/02/22 08:52 04/02/22 08:30 04/02/22 08:00 04/02/22 07:26 96 04/02/22 04:21 97 04/01/22 23:23 98 Laboratory Results 04/02/22 06:33 04/02/22 06:33 PG Care Time/CCT Total # of Minutes Spent Total Time Spent with Patient: Total time spent is greater than 50% in coordination of care (as documented) at patient's floor/unit and/or counseling patient: Coding Level of Care Code 76013 Subseq Hosp Care Lvl 2 Diagnoses Perforated bowel K63.1 Colonic stricture K56.699 Acute renal failure N17.9 Acute blood loss anemia D62 Hypertension I10 Hypertension type: essential hypertension Atrial flutter I48.3 Atrial flutter type: typical Depression F32.9 Dementia F03.90 Dementia behavioral disturbance: without behavioral disturbance Dementia type: unspecified type (1) Hypertension Hypertension type: essential hypertension Qualified Code(s): I10 - Essential (primary) hypertension (2) Atrial flutter Atrial flutter type: typical Qualified Code(s): I48.3 - Typical atrial flutter (3) Dementia Dementia behavioral disturbance: without behavioral disturbance Dementia type: unspecified type Qualified Code(s): F03.90 - Unspecified dementia without behavioral disturbance
[2022-04-02] MEDS: ACETAMINOPHEN 1,000 MG/100 ML VIAL IV PRN (14:24)
[2022-04-02] MEDS: CHLORASEPTIC 1.4% SOLN 180 ML BTL MT PRN (16:35)
[2022-04-02] MEDS: LACTATED RINGER'S 1,000 ML IV SCH (23:06)
[2022-04-03] MEDS: ACETAMINOPHEN 1,000 MG/100 ML VIAL IV PRN ×3 (00:36→23:28)
[2022-04-03 07:01] LABS: Eosinophils # (auto) 0.02 K/uL (0-0.5); Eosinophils % (auto) 0.4 %; Hematocrit (blood only) 25.6 % (42-52); Hemoglobin 8.6 g/dL (14.0-18.0); Immature Granulocytes # (auto) 0.01 K/uL (0.00-0.02); Immature Granulocytes % (auto) 0.2 %; Lymphocytes # (auto) 0.47 K/uL (1.2-3.4); Lymphocytes % (auto) 9.9 %; Mean Corpuscular Hgb Conc 33.6 g/dL (32-36); Mean Corpuscular Volume 92.4 fL (80-100); Mean Platelet Volume 9.1 fL (7.4-10.4); Monocytes # (auto) 0.43 K/uL (0.11-0.59); Monocytes % (auto) 9.1 %; Neutrophils % (auto) 80.4 %; Platelet Count 175 K/uL (130-400); RDW Coefficient of Variation 14.5 % (11.5-14.5); RDW Standard Deviation 49.5 fL (36.4-46.3); Red Blood Count 2.77 M/uL (4.7-6.1); White Blood Count 4.73 K/uL (4.8-10.8)
[2022-04-03 07:24] LABS: BUN Creatinine Ratio 11.4 (10-20); Calcium 8.2 mg/dl (8.5-10.1); Creatinine Clr Calc Pharmacy 49.1 ml/min; Est GFR (African American) 65.7 ml/min; Est GFR (Non-African American) 56.7 ml/min; Potassium 3.6 mmol/L (3.5-5.1)
[2022-04-03] MEDS: PIPERACILLIN/TAZOBACTAM 3.375 GM in DEXTROSE 5% 100 ML IV SCH ×3 (07:43→23:29)
--- NOTE | 2022-04-03 08:42 | Surgery Progress Note ---
Date of Service April 03, 2022 Assessment & Plan (1) Perforated bowel: Plan: I believe his main issue is postoperative ileus. We will recheck with a KUB today. If there is marked distention I may consider placing an NG tube although he has had no vomiting. Ileostomy output is inadequate at this time. We will start PPN. If no progression over the weekend will place a PICC on Wednesday and start TPN. Labs reviewed. No sign of infection. Postoperative delirium should resolve as he clinically improves. Admission and Anticipated Discharge Date Admission Date: March 26, 2022 Subjective Patient seen. Continues to have some confusion/postoperative delirium. Does not appear to be in any distress. Physical Exam Physical Exam: Alert but confused. No acute distress. Abdomen is soft but distended and tympanic. Some bilious output from the ileos padma but not adequate. All of his incisions look good with no sign of infection. Both drains with small amount of serous fluid Results & Data ([facility]) Vital Signs (Past 12 Hours) Vital Signs Temp Pulse Pulse Resp BP Pulse Ox 04/03/22 07:15 37.1 C 98 H 22 135/74 92 04/03/22 07:00 93 H 04/03/22 04:35 91 04/03/22 03:28 36.7 C 85 20 162/76 H 100 04/02/22 23:05 36.9 C 98 H 18 164/81 H 96 PG Care Time/CCT Total # of Minutes Spent Total Time Spent with Patient: Total time spent is greater than 50% in coordination of care (as documented) at patient's floor/unit and/or counseling patient: Coding Level of Care Code None Diagnoses Perforated bowel K63.1
[2022-04-03] MEDS ORDERED: TPN/PPN CONSULT PHARMACY STA (08:44)
[2022-04-03] MEDS ORDERED: TPN/PPN CONSULT PHARMACY PRN (08:57)
--- NOTE | 2022-04-03 09:38 | XRay Report ---
XR KUB/Abdomen 1 view CLINICAL HISTORY: eval ileus. COMPARISON STUDY: 03/31/2022 TECHNIQUE: 2 supine views of the abdomen FINDINGS: Compared to previous examination, mild gaseous distention of multiple loops of large and small bowel are again seen which are not significantly changed. Findings are again most characteristic of an ileu s. There is no evidence for organomegaly or gross intra-abdominal mass. No abnormal calcifications ar e seen along the course of the urinary tracts bilaterally. No acute osseous pathology. Midline skin s taples are again seen along with surgical drains in the pelvis. IMPRESSION: 1. Radiographic findings characteristic of a mild ileus, unchanged. ACT 112: Negative or not required by law. Electronically signed by: Jax Rowe M.D. 04/03/2022 9:37 AM
[2022-04-03] MEDS: METOPROLOL TARTRATE 25 MG TAB PO SCH ×2 (10:18→21:07)
[2022-04-03] MEDS: FAMOTIDINE 20 MG TAB PO SCH (10:19)
[2022-04-03] MEDS: lisinopril 40 MG TAB PO SCH (10:19)
[2022-04-03] MEDS: LACTATED RINGER'S 1,000 ML IV SCH (11:10)
[2022-04-03 11:12] LABS: Bilirubin,Total 1.2 mg/dl (0.2-1.0); Magnesium 1.8 mg/dl (1.7-2.4); Phosphorus 2.7 mg/dl (2.5-4.9)
--- NOTE | 2022-04-03 12:25 | Pharmacy Report ---
Pharmacy PN Initial Consult - Date of Service April 03, 2022 - Scope Pharmacy has been consulted to manage parenteral nutrition orders and order appropriate labs. As part of the Nutrition Support Team guidelines, pharmacy will work in conjunction with dietary when determining the patients caloric needs. - Subjective The patient is a 89 year old M admitted on 03/26/22 12:19 for Sigmoid Colon Stricture. Patient is to receive parenteral nutrition for prolonged NPO status secondary to perforated bowel/postoperative ileus. - Objective Height: 5 ft 10 in Weight: 87.9 kg Intake & Output (Last 24Hrs): Intake & Output 04/01/22 04/02/22 04/03/22 04/04/22 06:59 06:59 06:59 06:59 Intake Total 4113.333 / 4113.333 1936.667 / 1936.667 967.667 / 967.667 824 / 824 Output Total 2145 / 2145 3355 / 3355 3460 / 3460 Balance 1968.333 / 1968.333 -1418.333 / -1418.333 -2492.333 / -2492.333 824 / 824 Weight 91.9 kg 87.9 kg 87.9 kg Laboratory Data (Last 24 Hrs):: 04/03/22 04/03/22 06:28 06:28 Sodium 135 L Potassium 3.6 Chloride 100 Carbon Dioxide 28 BUN 13 Creatinine 1.14 Glucose 119 H Calcium 8.2 L Phosphorus 2.7 Magnesium 1.8 Total Bilirubin 1.2 H AST 20 ALT 15 Alkaline Phosphatase 66 Nutrition Assessment:: Please refer to the 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 - Assessment * GB is a 89 year old male ordered PPN today following prolonged NPO s/p surgery on 03/29 and suspected postoperative ileus * Plan is for PPN over the weekend with possible advancement to central TPN if necessary * Patient with VIMAL earlier in admission, now resolved * Electrolytes largely stable and within normal limits * IV fluids currently infusing (LR @80 mL/hr) and will be discontinued at time of PPN, today's PPN + lipids will provide approximate same daily volume * Macronutrient recs provided by assistant commissioner, which ultimately exceed max volume of 2 L Clinimix so will use goal of 2 L * Will start today at ~75% of goal - Plan For day 1 of PN administration, the following will be ordered: Macronutrients Amino acids 64 grams/day Dextrose 75 grams/day Lipids 50 grams/day Micronutrients Combined electrolytes 20 mL - contains 35 mEq Na, 20 meq K, 4.5 mEq Ca, 5 mEq Mg, 35 mEq Cl, 29.5 mEq acetate per 20 mL Sodium phosphate 21 MMol Sodium acetate 30 mEq Potassium chloride 60 mEq Magnesium sulfate 4.06 mEq Multivitamins 10 mL Trace Elements 10 mL Additional additives: thiamine 100 mg Total volume 1585 mL to be infused over 24 hrs will provide 1010 kcal/day Final osmolarity 866 mOsm/L (maximum for PPN is 900 mOsm/L) Labs to be ordered per PN order protocol Pharmacy will follow and adjust parenteral nutrition orders on a daily basis. Thank you.
[2022-04-03] MEDS ORDERED: METOPROLOL TARTRATE 1 MG/ML VIAL IV PRN (14:05)
--- NOTE | 2022-04-03 14:08 | Hospitalist Progress Note ---
Date of Service April 03, 2022 Assessment & Plan (1) Perforated bowel: Plan: S/p 03/29 for exp lap converted to oral laparotomy with repair of perforation and diverting ileostomy - VONNIE drain management per primary service, remains intact draining serous/serosanguineous output -Remains with poor ileostomy output and abdominal distention. Repeat KUB suggestive of persistent ileus, unchanged from prior -Maintaining O2 sat greater than 90% on room air Continue IV APAP 1g q8h prn mild to moderate pain Surgical team following, PPN started, will follow for progression over the weekend. NGT if vomiting/worsening (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 Castro on 03/26/2022 with interval development of perforated bowel on 03/29 (3) Acute renal failure: Plan: - pt developed post op VIMAL, has stable electrolytes, and bicarb, likely ATN from prerenal issue due to low blood pressure - IVF administered and pt's renal function greatly improved/returned to baseline Remains normal 04/03 (4) Acute blood loss anemia: Plan: - Post operative anemia due to blood loss in setting of recent surgery - T&C and transfused 2 units PRBCs on 03/28 - H&H stable-continue to trend, continue to trend daily No microcytosis, but elevated RDW. Will check iron studies and add Venofer if indicated (5) Hypertension: Plan: - Uncontrolled presently s/p blood transfusion/fluids/BP meds held d/t VIMAL - Lisinopril and Hydralazine were resumed on 03/29 - PO meds put back on hold d/t return to OR and NPO status - IV Hydralazine 10mg q6h prn sbp>180 or dbp>100 - Change Lisinopril to 40mg daily and can determine if ORAL Hydralazine needs resumed -IV metoprolol as noted (6) Atrial flutter: Plan: - Patient has a history of atrial flutter managed with Dr. Flores at [facility] cardiology on metoprolol and Eliquis - Eliquis on hold d/t post-op anemia IV metoprolol 2.5 every 6 hours for hypotension/tachycardia added while unable to take p.o. tartrate (7) Depression: Plan: - Continue Celexa (8) Dementia: Plan: - Continue Aricept Admission and Anticipated Discharge Date Admission Date: March 26, 2022 Subjective No acute distress at bedside, patient is not well oriented. Has had waxing and waning delirium per report. At time of bedside reports his abdomen is uncomfortable, grimaces somewhat on palpation. Review of Systems Review of Systems: Limited by cognitive status/delirium. Endorses abdominal discomfort, denies chest pain/chest pressure/fever/chills. Physical Exam Physical Exam: General: Oriented to name. No acute distress. HEENT: Atraumatic, normocephalic. Vision and hearing grossly intact Pulm: CTAB A&P. -wheezes, -rales, -rhonchi. Symmetrical chest rise. No increase in work of breathing. No respiratory distress. Cardiac: RRR, -mrg. Radial pulses intact and symmetrical. Abdominal: VONNIE drain x2 intact, Serosanguineous output.abdomen is softly distended. Ileostomy with bilious output. Patient endorses some discomfort on palpation, no rebound tenderness or involuntary guarding. Lozoya in place, yellow urine. Results & Data Results & Data ([facility]) Vital Signs (Past 12 Hours) Vital Signs Temp Pulse Pulse Resp BP Pulse Ox 04/03/22 10:57 36.8 C 105 H 20 168/82 H 92 04/03/22 07:15 37.1 C 98 H 22 135/74 92 04/03/22 07:00 93 H 04/03/22 04:35 91 04/03/22 03:28 36.7 C 85 20 162/76 H 100 PG Care Time/CCT Total # of Minutes Spent Total Time Spent with Patient: Total time spent is greater than 50% in coordination of care (as documented) at patient's floor/unit and/or counseling patient: Coding Level of Care Code 66893 Subseq Hosp Care Lvl 2 Diagnoses Perforated bowel K63.1 Colonic stricture K56.699 Acute renal failure N17.9 Acute blood loss anemia D62 Hypertension I10 Hypertension type: essential hypertension Atrial flutter I48.3 Atrial flutter type: typical Depression F32.9 Dementia F03.90 Dementia behavioral disturbance: without behavioral disturbance Dementia type: unspecified type (1) Hypertension Hypertension type: essential hypertension Qualified Code(s): I10 - Essential (primary) hypertension (2) Atrial flutter Atrial flutter type: typical Qualified Code(s): I48.3 - Typical atrial flutter (3) Dementia Dementia behavioral disturbance: without behavioral disturbance Dementia type: unspecified type Qualified Code(s): F03.90 - Unspecified dementia without behavioral disturbance
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
[2022-04-03] MEDS ORDERED: OLANZapine 10 MG/2.1 ML SDV IM PRN (15:31)
[2022-04-03] MEDS ORDERED: AMINO ACIDS 4.25% IV SCH (16:00)
[2022-04-03] MEDS ORDERED: CLINOLIPID 20% IV FAT EMULSION 250 ML IV SCH (16:00)
[2022-04-03] MEDS ORDERED: PERIPHERAL TPN IV SCH (16:00)
[2022-04-03] MEDS ORDERED: DEXTROSE 10% 1,000 ML IV PRN (16:00)
[2022-04-03] MEDS ORDERED: D5W IV SCH (16:00)
--- NOTE | 2022-04-03 16:05 | Electrocardiogram Report ---
Test Reason : Blood Pressure : / mmHG Vent. Rate : 096 BPM Atrial Rate : 096 BPM P-R Int : 144 ms QRS Dur : 136 ms QT Int : 392 ms P-R-T Axes : 066 -48 077 degrees QTc Int : 495 ms Sinus rhythm with occasional Premature ventricular complexes Right bundle branch block Left anterior fascicular block Bifascicular block Abnormal ECG When compared with ECG of 26-JAN-2022 19:17, Premature ventricular complexes are now Present Confirmed by Ger Farfan ([id number]) on 04/03/2022 4:05:10 PM Referred By: Honorio Castro Confirmed By:Ger Farfan
[2022-04-03 16:18] LABS: Ferritin 262.9 ng/ml (8-388)
[2022-04-03] MEDS ORDERED: STOP CLINOLIPID ONE (22:00)
[2022-04-03] MEDS: ALBUT/IPRATROP 3MG/0.5MG NEB 3 ML VIAL NEB SCH (23:02)
[2022-04-03] MEDS: hydrALAZINE HCL 20 MG/ML VIAL IV PRN (23:35)
[2022-04-04] MEDS: ALBUT/IPRATROP 3MG/0.5MG NEB 3 ML VIAL NEB SCH ×2 (04:14→07:17)
[2022-04-04] MEDS: PIPERACILLIN/TAZOBACTAM 3.375 GM in DEXTROSE 5% 100 ML IV SCH ×3 (08:02→23:32)
[2022-04-04] MEDS: ENOXAPARIN INJ 30 MG/0.3 ML SYR SQ SCH (08:04)
[2022-04-04] MEDS: FAMOTIDINE 20 MG TAB PO SCH (08:04)
[2022-04-04] MEDS: METOPROLOL TARTRATE 25 MG TAB PO SCH ×2 (08:04→20:29)
[2022-04-04] MEDS: lisinopril 40 MG TAB PO SCH (08:04)
[2022-04-04] MEDS ORDERED: ALBUT/IPRATROP 3MG/0.5MG NEB 3 ML VIAL NEB PRN (08:07)
--- NOTE | 2022-04-04 08:48 | Surgery Progress Note ---
Date of Service April 04, 2022 Assessment & Plan (1) Perforated bowel: Plan: POD#9 laparoscopic sigmoid colectomy/ POD#6 take back for repair of anastomotic perforation with diverting ileostomy Labs are pending Ostomy is viable and putting out liquid stool. VONNIE x2 serosang Continue PPN over weekend May start sips/chips... will go slow Appreciate hospitalists assistance with the patient Admission and Anticipated Discharge Date Admission Date: March 26, 2022 Supervising Physician Co-Signing Physician Notes I personally saw and evaluated the patient with Bhakti Tang PA-C and agree with the assessment and plan. 89-year-old male status post laparoscopic sigmoid colectomy, anastomotic leak with subsequent laparotomy repair of perforation and diverting ileostomy He does have some liquid in his ileostomy bag at this point He still seems a bit distended but nontender, will start some sips and chips today and see how he tolerates this He is to start PPN today Medicine following along for his comorbidities and delirium Subjective Patient resting in bed. No acute distress. Reports some belly pain. There is some stool in ostomy bag Physical Exam Physical Exam: awake, lying in bed Constitutional: no acute distress Gastrointestinal (Abdomen): Inspection/Auscultation: + abdominal surgical incision and + abdominal surgical drain present (VONNIE x2 serosang) + viable ostomy with liquid stool in bag [facility] & Data ([facility]) Vital Signs (Past 12 Hours) Vital Signs Temp Pulse Pulse Resp BP Pulse Ox 04/04/22 07:18 81 18 95 04/04/22 07:16 36.8 C 88 167/84 H 95 04/04/22 04:14 97 H 22 95 04/04/22 03:18 36.7 C 90 15 164/80 H 93 04/04/22 00:35 159/71 H 04/03/22 23:31 181/80 H 04/03/22 23:24 37.7 C H 89 18 191/76 H 93 04/03/22 23:03 94 H 04/03/22 23:02 86 24 97 04/03/22 21:04 36.4 C L 94 H 15 142/88 H 94 PG Care Time/CCT Total # of Minutes Spent Total Time Spent with Patient: Total time spent is greater than 50% in coordination of care (as documented) at patient's floor/unit and/or counseling patient: Coding Level of Care Code None Diagnoses Perforated bowel K63.1
[2022-04-04 09:54] LABS: BUN Creatinine Ratio 14.7 (10-20); Calcium 8.5 mg/dl (8.5-10.1); Creatinine Clr Calc Pharmacy 47.4 ml/min; Est GFR (African American) 69.4 ml/min; Est GFR (Non-African American) 59.9 ml/min; Magnesium 1.9 mg/dl (1.7-2.4); Phosphorus 2.7 mg/dl (2.5-4.9); Potassium 3.8 mmol/L (3.5-5.1)
[2022-04-04] MEDS ORDERED: IRON SUCROSE 300 MG in SODIUM CHLORIDE 0.9% 250 ML IV ONE (10:00)
[2022-04-04] MEDS: ACETAMINOPHEN 1,000 MG/100 ML VIAL IV PRN ×2 (10:46→20:29)
[2022-04-04 10:55] LABS: Basophils # (auto) 0.01 K/uL (0-0.2); Basophils % (auto) 0.2 %; Eosinophils # (auto) 0.01 K/uL (0-0.5); Eosinophils % (auto) 0.2 %; Hematocrit (blood only) 27.3 % (42-52); Hemoglobin 9.1 g/dL (14.0-18.0); Immature Granulocytes # (auto) 0.01 K/uL (0.00-0.02); Immature Granulocytes % (auto) 0.2 %; Lymphocytes # (auto) 0.25 K/uL (1.2-3.4); Lymphocytes % (auto) 4.7 %; Mean Corpuscular Hemoglobin 30.7 pg (25-34); Mean Corpuscular Hgb Conc 33.3 g/dL (32-36); Mean Corpuscular Volume 92.2 fL (80-100); Mean Platelet Volume 9.1 fL (7.4-10.4); Monocytes # (auto) 0.45 K/uL (0.11-0.59); Monocytes % (auto) 8.4 %; Neutrophils # (auto) 4.64 K/uL (1.4-6.5); Neutrophils % (auto) 86.3 %; Platelet Count 262 K/uL (130-400); RDW Coefficient of Variation 14.6 % (11.5-14.5); RDW Standard Deviation 49.4 fL (36.4-46.3); Red Blood Count 2.96 M/uL (4.7-6.1); White Blood Count 5.37 K/uL (4.8-10.8)
[2022-04-04] MEDS: hydrALAZINE HCL 20 MG/ML VIAL IV PRN ×2 (12:23→20:30)
[2022-04-04] MEDS: HYDROmorphone INJ 0.5 MG/0.5 ML SYR IV PRN ×2 (13:54→18:28)
--- NOTE | 2022-04-04 13:56 | Hospitalist Progress Note ---
Date of Service April 04, 2022 Assessment & Plan (1) Perforated bowel: Plan: S/p 03/29 for exp lap converted to oral laparotomy with repair of perforation and diverting ileostomy - VONNIE drain management per primary service, remains intact draining serous/serosanguineous output -Remains with poor ileostomy output and abdominal distention. Repeat KUB suggestive of persistent ileus, unchanged from prior. - Bibasilar trace crackles which clear on deep breathing,? Atelectasis, encourage incentive spirometry. Remains on room air. Continue IV APAP 1g q8h prn mild to moderate pain Surgical team following, PPN started Ostomy output increasing, clinically starting to improve. 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 Castro on 03/26/2022 with interval development of perforated bowel on 03/29 (3) Acute renal failure: Plan: - pt developed post op VIMAL, has stable electrolytes, and bicarb, likely ATN from prerenal issue due to low blood pressure - IVF administered and pt's renal function greatly improved/returned to baseline Creatinine remains at baseline (4) Acute blood loss anemia: Plan: - Post operative anemia due to blood loss in setting of recent surgery - T&C and transfused 2 units PRBCs on 03/28 - H&H stable-continue to trend, continue to trend daily No microcytosis, but elevated RDW. transferrin saturation 11%, UIBC 179, TIBC 201. Ferritin normal, likely artificially elevated as phase reactant. Iron deficient. . x1 04/04 (5) Hypertension: Plan: - Uncontrolled presently s/p blood transfusion/fluids/BP meds held d/t VIMAL - Lisinopril and Hydralazine were resumed on 03/29 - IV Hydralazine 10mg q6h prn sbp>180 or dbp>100 - MTP PO --> 25mg tartrate BID - Continue lisinopril 40mg daily - Continue pain control - Hctz 25mg qAM if remains hypertensive w/ pain control, hold for sbp <120 (6) Atrial flutter: Plan: - Patient has a history of atrial flutter managed with Dr. Flores at [facility] cardiology on metoprolol and Eliquis - Eliquis on hold d/t post-op anemia Patient remains tachycardic with intermittent hypertension. Does not appear volume contracted at bedside assessment. MTP increased. (7) Depression: Plan: - Continue Celexa (8) Dementia: Plan: - Continue Aricept Admission and Anticipated Discharge Date Admission Date: March 26, 2022 Subjective Serafin is seen at the bedside. Remains confused. Is not oriented to place. Endorses that his stomach continues to feel tender. Increased output from ostomy today. Denies chest pain, chest pressure. Subjective limited by cognitive status Review of Systems Review of Systems: Unobtainable due to cognitive status Physical Exam Physical Exam: General: Oriented to name. No acute distress. HEENT: Atraumatic, normocephalic. Vision and hearing grossly intact Pulm: Diminished, bibasilar crackles which clear with breathing. Symmetrical chest rise. No increase in work of breathing. No respiratory distress. Cardiac: Tachycardic, -mrg. Radial pulses intact and symmetrical. Abdominal: VONNIE drain x2 intact, + SS output. Increased ostomy output, brown today. continues to have some discomfort diffusely on abdominal palpation, no rebound tenderness or guarding. Abdomen is softly distended with tympany Results & Data Results & Data ([facility]) Vital Signs (Past 12 Hours) Vital Signs Temp Pulse Pulse Resp BP Pulse Ox 04/04/22 11:19 36.6 C 111 H 180/87 H 94 04/04/22 08:00 101 H 04/04/22 07:18 81 18 95 04/04/22 07:16 36.8 C 88 167/84 H 95 04/04/22 04:14 97 H 22 95 04/04/22 03:18 36.7 C 90 15 164/80 H 93 PG Care Time/CCT Total # of Minutes Spent Total Time Spent with Patient: Total time spent is greater than 50% in coordination of care (as documented) at patient's floor/unit and/or counseling patient: Coding Level of Care Code 20483 Subseq Hosp Care Lvl 2 Diagnoses Perforated bowel K63.1 Colonic stricture K56.699 Acute renal failure N17.9 Acute blood loss anemia D62 Hypertension I10 Hypertension type: essential hypertension Atrial flutter I48.3 Atrial flutter type: typical Depression F32.9 Dementia F03.90 Dementia behavioral disturbance: without behavioral disturbance Dementia type: unspecified type (1) Hypertension Hypertension type: essential hypertension Qualified Code(s): I10 - Essential (primary) hypertension (2) Atrial flutter Atrial flutter type: typical Qualified Code(s): I48.3 - Typical atrial flutter (3) Dementia Dementia behavioral disturbance: without behavioral disturbance Dementia type: unspecified type Qualified Code(s): F03.90 - Unspecified dementia without behavioral disturbance
[2022-04-04] MEDS ORDERED: METOPROLOL TARTRATE 25 MG TAB PO SCH (14:15)
[2022-04-04] MEDS ORDERED: METOPROLOL TARTRATE 25 MG TAB PO ONE (14:24)
[2022-04-04] MEDS ORDERED: PERIPHERAL TPN IV SCH (16:00)
[2022-04-04] MEDS ORDERED: D5W IV SCH (16:00)
[2022-04-04] MEDS ORDERED: AMINO ACIDS 4.25% IV SCH (16:00)
[2022-04-04] MEDS ORDERED: CLINOLIPID 20% IV FAT EMULSION 250 ML IV SCH (16:00)
--- NOTE | 2022-04-04 17:17 | Communication Note ---
Date of Service: April 04, 2022 Unable to obtain IV access on patient after multiple attempts, only remaining line is 20-gauge IV at the left upper arm. Patient is receiving multiple infu sions including IV antibiotics and PPN. Patient is anticipated to remain on PPN over the weekend. On discussing with nursing and IV team multiple attempts at IV access have failed, and peripheral IVs and ultrasound-guided IVs have not been able to be established. Patient has been recommended for a midline versus PICC. Would prefer midline in the setting of his A. fib/tachycardia. Patient remains delirious with confusion, and while pleasant at the bedside is not able to express the risk/benefits of PICC or midline placement as they applied him. was called evening of 04/04 for consent, she defers to their daughter for Nancy for decision making. Risk/benefits were discussed with patient's daughter Nancy by phone. Risks including bleeding, infection, arrhythmia, nerve damage, catheter thrombosis, catheter breakage, and damage to local structures were discussed. Benefits including inability to maintain IV access for his medications were reviewed. On risk/benefits discussion verbal consent was provided on 04/04/22 at 1729hrs. Consent placed in chart, IV team was notified to request midline vs PICC placement with midline preferred
--- NOTE | 2022-04-04 19:19 | XRay Report ---
XR chest 1V portable HISTORY: 89 years-old Male picc placed status post placement of a right-sided PICC COMPARISON: Chest radiograph 03/29/2022 TECHNIQUE: Portable AP view of the chest FINDINGS: A right-sided PICC has been placed which loops upon itself, terminating within the right axilla. Card iac silhouette is enlarged. Interval extubation with removal of the enteric tube. Unchanged right hem idiaphragmatic elevation. There is improved aeration of the lungs without pneumothorax, pleural effus ion or focal airspace consolidation. Degenerative changes of the spine and left shoulder. Cholecystec padma. Reverse right shoulder total joint arthroplasty. IMPRESSION: 1. Distal tip of the right-sided PICC projects over the right axilla. Repositioning with follow-up im aging is needed. 2. No pneumothorax. ACT 112: Negative or not required by law. The above report was generated using voice recognition software. It may contain grammatical, syntax o r spelling errors. Electronically signed by: Brayden Gonsalez M.D. 04/04/2022 7:17 PM
[2022-04-04] MEDS: MELATONIN 3 MG TAB PO PRN (20:30)
[2022-04-04] MEDS ORDERED: STOP CLINOLIPID ONE (22:00)
[2022-04-05 05:55] LABS: Basophils # (auto) 0.01 K/uL (0-0.2); Basophils % (auto) 0.2 %; Eosinophils # (auto) 0.06 K/uL (0-0.5); Eosinophils % (auto) 1.2 %; Hemoglobin 9.1 g/dL (14.0-18.0); Immature Granulocytes # (auto) 0.02 K/uL (0.00-0.02); Immature Granulocytes % (auto) 0.4 %; Lymphocytes # (auto) 0.63 K/uL (1.2-3.4); Lymphocytes % (auto) 12.4 %; Mean Corpuscular Hemoglobin 31.3 pg (25-34); Mean Corpuscular Hgb Conc 33.7 g/dL (32-36); Mean Corpuscular Volume 92.8 fL (80-100); Mean Platelet Volume 9.2 fL (7.4-10.4); Monocytes # (auto) 0.47 K/uL (0.11-0.59); Monocytes % (auto) 9.2 %; Neutrophils % (auto) 76.6 %; Platelet Count 292 K/uL (130-400); RDW Coefficient of Variation 14.4 % (11.5-14.5); RDW Standard Deviation 48.8 fL (36.4-46.3); Red Blood Count 2.91 M/uL (4.7-6.1); White Blood Count 5.09 K/uL (4.8-10.8)
[2022-04-05 06:16] LABS: BUN Creatinine Ratio 16.1 (10-20); Calcium 8.3 mg/dl (8.5-10.1); Creatinine Clr Calc Pharmacy 46.2 ml/min; Est GFR (African American) 67.1 ml/min; Est GFR (Non-African American) 57.9 ml/min; Magnesium 1.9 mg/dl (1.7-2.4); Phosphorus 3.2 mg/dl (2.5-4.9)
[2022-04-05] MEDS: lisinopril 40 MG TAB PO SCH (08:33)
[2022-04-05] MEDS: METOPROLOL TARTRATE 25 MG TAB PO SCH ×2 (08:33→19:56)
[2022-04-05] MEDS: FAMOTIDINE 20 MG TAB PO SCH (08:33)
[2022-04-05] MEDS: hydroCHLOROthiazide 25 MG TAB PO SCH (08:34)
[2022-04-05] MEDS: ENOXAPARIN INJ 30 MG/0.3 ML SYR SQ SCH (08:37)
[2022-04-05] MEDS: PIPERACILLIN/TAZOBACTAM 3.375 GM in DEXTROSE 5% 100 ML IV SCH ×3 (08:41→23:09)
--- NOTE | 2022-04-05 09:03 | Surgery Progress Note ---
Date of Service April 05, 2022 Assessment & Plan (1) Perforated bowel: Plan: POD#10 laparoscopic sigmoid colectomy/ POD#7 take back for repair of anastomotic perforation with diverting ileostomy Labs are stable Continue PPN check KUB, cosider clears Admission and Anticipated Discharge Date Admission Date: March 26, 2022 Supervising Physician Co-Signing Physician Notes I personally saw and evaluated the patient with Andre Vargas PA-C and agree with the assessment and plan. 89-year-old male status post laparoscopic sigmoid colectomy, anastomotic leak with subsequent laparotomy repair of perforation and diverting ileostomy His ostomy seems to be putting out more today, still a bit distended and has some belching We will check a KUB today, we may start clear liquids He has tolerated the sips we started yesterday Continue PPN today Medicine following along for his comorbidities and delirium Subjective remains confused, no complaints, ileostomy output 250 cc every 2-3 hours Physical Exam Constitutional: WD/WN, vitals as above Gastrointestinal (Abdomen): Inspection/Auscultation: + abdominal surgical drain present (30 cc left, minimal from right); abdomen not distended Percussion/Palpation: abdomen soft; abdomen nontender having ileostomy output Results & Data ([facility]) Vital Signs (Past 12 Hours) Vital Signs Temp Pulse Pulse Resp BP BP Pulse Ox 04/05/22 07:00 36.9 C 99 H 20 184/86 H 95 04/05/22 03:00 61 20 171/82 H 92 04/05/22 02:01 36.2 C L 75 36 H 175/86 H 91 04/05/22 00:22 95 H 04/04/22 22:58 36.5 C 86 28 H 156/80 H 92 04/04/22 21:42 145/64 H PG Care Time/CCT Total # of Minutes Spent Total Time Spent with Patient: Total time spent is greater than 50% in coordination of care (as documented) at patient's floor/unit and/or counseling patient: Coding Level of Care Code None Diagnoses Perforated bowel K63.1
[2022-04-05] MEDS: hydrALAZINE HCL 20 MG/ML VIAL IV PRN (09:35)
[2022-04-05] MEDS: ACETAMINOPHEN 1,000 MG/100 ML VIAL IV PRN (10:56)
--- NOTE | 2022-04-05 11:04 | XRay Report ---
XR KUB/Abdomen 1 view CLINICAL HISTORY: postop ileus TECHNIQUE: 1 view of the abdomen was obtained. Comparison: Comparison is made to abdomen radiograph 04/03/2022 FINDINGS: Stable Abdominal drains are seen, similar in appearance to prior exam. Degenerative changes are seen in the visualized skeleton. Redemonstration of mild distention of multiple gas filled loops of small bowel. No significant stool burden is noted. IMPRESSION: Stable mild distention of multiple gas filled loops of small bowel compatible with postsurgical ileus . ACT 112: Negative or not required by law. Electronically signed by: Harjit Del Valle M.D. 04/05/2022 11:02 AM
[2022-04-05] MEDS: HYDROmorphone INJ 0.5 MG/0.5 ML SYR IV PRN (11:31)
--- NOTE | 2022-04-05 13:52 | Hospitalist Progress Note ---
Date of Service April 05, 2022 Assessment & Plan (1) Perforated bowel: Plan: S/p 03/29 for exp lap converted to oral laparotomy with repair of perforation and diverting ileostomy - VONNIE drain management per primary service, remains intact x2 -Remains with poor ileostomy output and abdominal distention. KUB 04/05: Stable mild distention of multiple gas filled loops of small bowel compatible with postsurgical ileus. - Bibasilar trace crackles which clear on deep breathing,? Atelectasis, encourage incentive spirometry. Remains on room air. Continue IV APAP 1g q8h prn mild to moderate pain Surgical team following, PPN started Ostomy output increasing, clinically starting toimprove. 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 Castro on 03/26/2022 with interval development of perforated bowel on 03/29 (3) Acute renal failure: Plan: - pt developed post op VIMAL, has stable electrolytes, and bicarb, likely ATN from prerenal issue due to low blood pressure - IVF administered and pt's renal function greatly improved/returned to baseline Creatinine remains at baseline (4) Acute blood loss anemia: Plan: - Post operative anemia due to blood loss in setting of recent surgery - T&C and transfused 2 units PRBCs on 03/28 - H&H stable-of trended and stable. Continue CBC trending No microcytosis, but elevated RDW. transferrin saturation 11%, UIBC 179, TIBC 201. Ferritin normal, likely artificially elevated as phase reactant. Iron deficient. . x1 04/04. x1 04/05. May consider addition of third infusion, up to 1g total course during admit. (5) Hypertension: Plan: - Uncontrolled presently s/p blood transfusion/fluids/BP meds held d/t VIMAL - Lisinopril and Hydralazine were resumed on 03/29 - IV Hydralazine 10mg q6h prn sbp>180 or dbp>100 - MTP PO --> 25mg tartrate BID - Continue lisinopril 40mg daily - Continue pain control - Hctz 25mg qAM continued, reasonable blood pressure control 04/05 (6) Atrial flutter: Plan: - Patient has a history of atrial flutter managed with Dr. Flores at [facility] cardiology on metoprolol and Eliquis - Eliquis on hold d/t post-op anemia Patient remains tachycardic with intermittent hypertension. Does not appear volume contracted at bedside assessment. MTP increased. (7) Depression: Plan: - Continue Celexa (8) Dementia: Plan: - Continue Aricept - Delirium gradually improving, did have improved afternoon up to chair and working with staff yesterday. If severe agitation may use olanzapine 2.5 mg IM, however monitor carefully in the setting of QTp. Melatonin 6 mg p.o. nightly if tolerating p.o. Delirium precautions. Admission and Anticipated Discharge Date Admission Date: March 26, 2022 Subjective Increased ostomy output. No acute change. Tolerated PICC placement into right arm yesterday. Review of Systems Review of Systems: Unobtainable due to cognitive status (Endorses abdominal discomfort, otherwise no new symptoms. Limited by cognitive status) Physical Exam Physical Exam: General: Oriented to name. No acute distress. Delirium/agitation improved from prior HEENT: Atraumatic, normocephalic. Vision and hearing grossly intact Pulm: Diminished, bibasilar crackles which clear with breathing. Symmetrical chest rise. No increase in work of breathing. No respiratory distress. Cardiac: Tachycardic, -mrg. Radial pulses intact and symmetrical. Abdominal: VONNIE drain x2 intactt. Continues to have improved ostomy output. continues to have some discomfort diffusely on abdominal palpation, no rebound tenderness or guarding. Abdomen is softly distended with tympany Results & Data Results & Data ([facility]) Vital Signs (Past 12 Hours) Vital Signs Temp Pulse Pulse Resp BP BP Pulse Ox 04/05/22 10:49 36.7 C 97 H 22 160/71 H 95 04/05/22 10:05 96 H 04/05/22 09:33 189/94 H 04/05/22 09:18 103 H 20 95 04/05/22 07:00 36.9 C 99 H 20 184/86 H 95 04/05/22 03:00 61 20 171/82 H 92 04/05/22 02:01 36.2 C L 75 36 H 175/86 H 91 PG Care Time/CCT Total # of Minutes Spent Total Time Spent with Patient: Total time spent is greater than 50% in coordination of care (as documented) at patient's floor/unit and/or counseling patient: Coding Level of Care Code 35913 Subseq Hosp Care Lvl 2 Diagnoses Perforated bowel K63.1 Colonic stricture K56.699 Acute renal failure N17.9 Acute blood loss anemia D62 Hypertension I10 Hypertension type: essential hypertension Atrial flutter I48.3 Atrial flutter type: typical Depression F32.9 Dementia F03.90 Dementia behavioral disturbance: without behavioral disturbance Dementia type: unspecified type (1) Hypertension Hypertension type: essential hypertension Qualified Code(s): I10 - Essential (primary) hypertension (2) Atrial flutter Atrial flutter type: typical Qualified Code(s): I48.3 - Typical atrial flutter (3) Dementia Dementia behavioral disturbance: without behavioral disturbance Dementia type: unspecified type Qualified Code(s): F03.90 - Unspecified dementia without behavioral disturbance
[2022-04-05] MEDS ORDERED: CLINOLIPID 20% IV FAT EMULSION 250 ML IV SCH (16:00)
[2022-04-05] MEDS ORDERED: AMINO ACIDS 4.25% IV SCH (16:00)
[2022-04-05] MEDS ORDERED: PERIPHERAL TPN IV SCH (16:00)
[2022-04-05] MEDS ORDERED: D5W IV SCH (16:00)
[2022-04-05] MEDS ORDERED: ACETAMINOPHEN 1,000 MG/100 ML VIAL IV STA (19:55)
[2022-04-05] MEDS: MELATONIN 3 MG TAB PO PRN (19:56)
[2022-04-05] MEDS: STOP CLINOLIPID SCH (22:42)
[2022-04-06] MEDS: HYDROmorphone INJ 0.5 MG/0.5 ML SYR IV PRN ×3 (00:41→10:14)
[2022-04-06 07:02] LABS: Basophils # (auto) 0.01 K/uL (0-0.2); Basophils % (auto) 0.2 %; Eosinophils # (auto) 0.06 K/uL (0-0.5); Hematocrit (blood only) 30.1 % (42-52); Hemoglobin 9.9 g/dL (14.0-18.0); Immature Granulocytes # (auto) 0.02 K/uL (0.00-0.02); Immature Granulocytes % (auto) 0.3 %; Lymphocytes # (auto) 0.78 K/uL (1.2-3.4); Lymphocytes % (auto) 13.6 %; Mean Corpuscular Hemoglobin 30.4 pg (25-34); Mean Corpuscular Hgb Conc 32.9 g/dL (32-36); Mean Corpuscular Volume 92.3 fL (80-100); Mean Platelet Volume 9.6 fL (7.4-10.4); Monocytes # (auto) 0.58 K/uL (0.11-0.59); Monocytes % (auto) 10.1 %; Neutrophils # (auto) 4.28 K/uL (1.4-6.5); Neutrophils % (auto) 74.8 %; Platelet Count 354 K/uL (130-400); RDW Coefficient of Variation 14.7 % (11.5-14.5); Red Blood Count 3.26 M/uL (4.7-6.1); White Blood Count 5.73 K/uL (4.8-10.8)
[2022-04-06 07:27] LABS: BUN Creatinine Ratio 19.3 (10-20); Calcium 8.6 mg/dl (8.5-10.1); Creatinine Clr Calc Pharmacy 38.3 ml/min; Est GFR (African American) 53.6 ml/min; Est GFR (Non-African American) 46.2 ml/min; Magnesium 2.1 mg/dl (1.7-2.4); Phosphorus 4.1 mg/dl (2.5-4.9); Potassium 4.1 mmol/L (3.5-5.1)
[2022-04-06] MEDS: PIPERACILLIN/TAZOBACTAM 3.375 GM in DEXTROSE 5% 100 ML IV SCH ×2 (07:46→16:14)
[2022-04-06] MEDS: ENOXAPARIN INJ 30 MG/0.3 ML SYR SQ SCH (07:47)
[2022-04-06] MEDS: METOPROLOL TARTRATE 25 MG TAB PO SCH ×2 (07:48→20:47)
[2022-04-06] MEDS: FAMOTIDINE 20 MG TAB PO SCH (07:48)
[2022-04-06] MEDS: lisinopril 40 MG TAB PO SCH (07:48)
[2022-04-06] MEDS: hydroCHLOROthiazide 25 MG TAB PO SCH (07:48)
--- NOTE | 2022-04-06 09:38 | Surgery Progress Note ---
Date of Service April 06, 2022 Assessment & Plan (1) History of intestinal surgery: Plan: Continues to slowly improve. I do believe his ileus is resolving im going to recheck a KUB today.\ If the x-ray looks improved I may advance him to full liquids. We will keep his PPN for another day or 2 until we see how he eats. He is tolerating clears without any issue. His nurse that he had no problem taking his pills in regards to swallowing function. Will need physical therapy. Hopefully his delirium is starting to improve as well. Admission and Anticipated Discharge Date Admission Date: March 26, 2022 Subjective Patient seen and discussed with his nursing team. They feel as though he is starting to come around mentally. He is still confused but is improving and much less agitated. He has tolerated his clear liquids without any issue. He is starting to get increasing output from his stoma. Physical Exam Physical Exam: Awake and cooperative but confused. He does seem to be mentating better than he did on Wednesday when I had last seen him. Abdomen is soft. He has less distention as well. Stoma viable with some liquid output. His midline incision is clean and dry with no sign of infection. Right-sided VONNIE putting what appears to be old blood. Left-sided with serous fluid Results & Data ([facility]) Vital Signs (Past 12 Hours) Vital Signs Temp Pulse Pulse Resp BP BP Pulse Ox 04/06/22 08:00 87 04/06/22 07:00 37.0 C 86 16 173/78 H 94 04/06/22 03:23 36.5 C 77 18 125/34 L 97 04/06/22 00:38 92 H 04/05/22 23:28 36.9 C 89 22 173/83 H 95 04/05/22 22:47 36.7 C PG Care Time/CCT Total # of Minutes Spent Total Time Spent with Patient: Total time spent is greater than 50% in coordination of care (as documented) at patient's floor/unit and/or counseling patient: Coding Level of Care Code None Diagnoses History of intestinal surgery Z98.890
[2022-04-06] MEDS ORDERED: IRON SUCROSE 300 MG in SODIUM CHLORIDE 0.9% 250 ML IV ONE (10:00)
--- NOTE | 2022-04-06 11:59 | XRay Report ---
KUB HISTORY: Acute generalized abdominal pain with reported ileus evaluate ileus COMPARISON: KUB 04/05/2022 FINDINGS: Midline skin raudel are noted with 2 surgical drainage catheters projected over the lower abdomen/pelvis. Distended air-filled loops of small bowel redemonstrated measuring up to approximatel y 3.6 cm, previously measured at 3.2 cm. There is mildly decreased gaseous distention of the stomach. No renal calculi. No ureteral calculi. No pneumoperitoneum or pneumatosis. No fracture. IMPRESSION: Mild persistent gaseous distention of the small bowel which may represent postoperative ileus. Follow -up recommended. ACT 112: Negative or not required by law. The above report was generated using voice recognition software. It may contain grammatical, syntax o r spelling errors. Electronically signed by: Brayden Gonsalez M.D. 04/06/2022 11:57 AM
[2022-04-06] MEDS ORDERED: PERIPHERAL TPN IV SCH (16:00)
[2022-04-06] MEDS ORDERED: D5W IV SCH (16:00)
[2022-04-06] MEDS ORDERED: CLINOLIPID 20% IV FAT EMULSION 250 ML IV SCH (16:00)
[2022-04-06] MEDS ORDERED: AMINO ACIDS 4.25% IV SCH (16:00)
--- NOTE | 2022-04-06 17:35 | Hospitalist Progress Note ---
Date of Service April 06, 2022 Assessment & Plan (1) Perforated bowel: Plan: S/p 03/29 for exp lap converted to oral laparotomy with repair of perforation and diverting ileostomy - VONNIE drain management per primary service, remains intact x2 -Remains with poor ileostomy output and abdominal distention. KUB 04/05: Stable mild distention of multiple gas filled loops of small bowel compatible with postsurgical ileus. - KUB 04/06: Mild persistent gaseous distention of the small bowel which may represent postoperative ileus. - Bibasilar trace crackles which clear on deep breathing,? Atelectasis, encourage incentive spirometry. Remains on room air. Continue IV APAP 1g q8h prn mild to moderate pain Surgical team following, PPN started Abdominal clinicaly mildly improved 04/06. Ostomy with gurgling/liquid output at bedside. Diet per surgery PPN continued, PICC placed 04/04 due to difficulty with IV access/loss of IV access and need for multiple lines - Mg, Phos, Cr, K all wnl. Na low normal. 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 Castro on 03/26/2022 with interval development of perforated bowel on 03/29 (3) Acute renal failure: Plan: - pt developed post op VIMAL, has stable electrolytes, and bicarb, likely ATN from prerenal issue due to low blood pressure - IVF administered and pt's renal function greatly improved/returned to baseline Creatinine remains at baseline (4) Acute blood loss anemia: Plan: - Post operative anemia due to blood loss in setting of recent surgery - T&C and transfused 2 units PRBCs on 03/28 - H&H stable-of trended and stable. Continue CBC trending No microcytosis, but elevated RDW. transferrin saturation 11%, UIBC 179, TIBC 201. Ferritin normal, likely artificially elevated as phase reactant. Iron deficient. . x1 04/04. x1 04/05. May consider addition of third infusion, up to 1g total course during admit. (5) Hypertension: Plan: - Uncontrolled presently s/p blood transfusion/fluids/BP meds held d/t VIMAL - Lisinopril and Hydralazine were resumed on 03/29 - IV Hydralazine 10mg q6h prn sbp>180 or dbp>100 - MTP PO --> 25mg tartrate BID - Continue lisinopril 40mg daily - Continue pain control - Hctz 25mg qAM continued - One episode of low SBP 04/06. Downtrending. Recheck pending. If continues to be low d/c hctz (6) Atrial flutter: Plan: - Patient has a history of atrial flutter managed with Dr. Flores at [facility] cardiology on metoprolol and Eliquis - Eliquis on hold d/t post-op anemia Patient remains tachycardic with intermittent hypertension. Does not appear volume contracted at bedside assessment. - Continue MTP (7) Depression: Plan: - Continue Celexa (8) Dementia: Plan: - Continue Aricept - Delirium continues to be gradually improving, some improved sleep last night If severe agitation may use olanzapine 2.5 mg IM, however monitor carefully in the setting of QTp. - Melatonin 6 mg p.o. nightly + Delirium precautions. Admission and Anticipated Discharge Date Admission Date: March 26, 2022 Subjective Slow improvement. Did get a couple of hours sleep last night. Increased output with gurgling into ostomy on morning exam today. Awakens easily but remains poorly oriented. Endorses abdominal discomfort, denies chest pain/chest pressure/shortness of breath/other pain. Review of Systems Review of Systems: Unobtainable due to cognitive status Physical Exam Physical Exam: General: Oriented to name. No acute distress. Delirium/agitation improved from prior HEENT: Atraumatic, normocephalic. Vision and hearing grossly intact Pulm: Diminished, grossly clear without wheezes/rales. Trical chest rise. No in crease in work of breathing. No respiratory distress. Cardiac: Regular rate , -mrg. Radial pulses intact and symmetrical. Abdominal: VONNIE drain x2 remain intact. Abdominal distention is present, but less prominent today. Abdomen remains soft. Good output into ostomy. Results & Data Results & Data ([facility]) Vital Signs (Past 12 Hours) Vital Signs Temp Pulse Pulse Resp BP BP Pulse Ox 04/06/22 15:17 37.0 C 70 16 91/43 L 93 04/06/22 11:00 36.8 C 75 18 133/62 95 04/06/22 08:00 87 04/06/22 07:00 37.0 C 86 16 173/78 H 94 PG Care Time/CCT Total # of Minutes Spent Total Time Spent with Patient: Total time spent is greater than 50% in coordination of care (as documented) at patient's floor/unit and/or counseling patient: Coding Level of Care Code 78517 Subseq Hosp Care Lvl 2 Diagnoses Perforated bowel K63.1 Colonic stricture K56.699 Acute renal failure N17.9 Acute blood loss anemia D62 Hypertension I10 Hypertension type: essential hypertension Atrial flutter I48.3 Atrial flutter type: typical Depression F32.9 Dementia F03.90 Dementia behavioral disturbance: without behavioral disturbance Dementia type: unspecified type (1) Hypertension Hypertension type: essential hypertension Qualified Code(s): I10 - Essential (primary) hypertension (2) Atrial flutter Atrial flutter type: typical Qualified Code(s): I48.3 - Typical atrial flutter (3) Dementia Dementia behavioral disturbance: without behavioral disturbance Dementia type: unspecified type Qualified Code(s): F03.90 - Unspecified dementia without behavioral disturbance
[2022-04-06] MEDS: MELATONIN 3 MG TAB PO PRN (20:54)
[2022-04-06] MEDS ORDERED: STOP CLINOLIPID ONE (22:00)
[2022-04-06] MEDS: STOP CLINOLIPID SCH (22:09)
[2022-04-07] MEDS: PIPERACILLIN/TAZOBACTAM 3.375 GM in DEXTROSE 5% 100 ML IV SCH ×4 (00:51→23:28)
[2022-04-07 07:12] LABS: Basophils # (auto) 0.01 K/uL (0-0.2); Basophils % (auto) 0.2 %; Eosinophils # (auto) 0.04 K/uL (0-0.5); Eosinophils % (auto) 0.7 %; Hematocrit (blood only) 31.3 % (42-52); Hemoglobin 10.3 g/dL (14.0-18.0); Immature Granulocytes # (auto) 0.04 K/uL (0.00-0.02); Immature Granulocytes % (auto) 0.7 %; Lymphocytes # (auto) 0.79 K/uL (1.2-3.4); Lymphocytes % (auto) 12.9 %; Mean Corpuscular Hemoglobin 30.9 pg (25-34); Mean Corpuscular Hgb Conc 32.9 g/dL (32-36); Mean Platelet Volume 9.8 fL (7.4-10.4); Monocytes # (auto) 0.56 K/uL (0.11-0.59); Monocytes % (auto) 9.1 %; Neutrophils % (auto) 76.4 %; Platelet Count 419 K/uL (130-400); RDW Coefficient of Variation 14.9 % (11.5-14.5); RDW Standard Deviation 50.7 fL (36.4-46.3); Red Blood Count 3.33 M/uL (4.7-6.1); White Blood Count 6.14 K/uL (4.8-10.8)
[2022-04-07 07:30] LABS: Albumin Globulin Ratio 1.2 (0.9-2); Albumin Level 3.1 gm/dl (3.4-5.0); BUN Creatinine Ratio 22.3 (10-20); Bilirubin,Total 0.9 mg/dl (0.2-1.0); Calcium 8.6 mg/dl (8.5-10.1); Creatinine Clr Calc Pharmacy 34.9 ml/min; Est GFR (African American) 47.9 ml/min; Est GFR (Non-African American) 41.4 ml/min; Globulin 2.6 gm/dl (2.5-4.0); Magnesium 2.1 mg/dl (1.7-2.4); Phosphorus 3.7 mg/dl (2.5-4.9); Potassium 4.2 mmol/L (3.5-5.1); Total Protein 5.7 gm/dl (6.0-8.3)
[2022-04-07] MEDS: lisinopril 40 MG TAB PO SCH (08:25)
[2022-04-07] MEDS: METOPROLOL TARTRATE 25 MG TAB PO SCH ×2 (08:25→20:10)
[2022-04-07] MEDS: hydroCHLOROthiazide 25 MG TAB PO SCH (08:25)
[2022-04-07] MEDS: ENOXAPARIN INJ 30 MG/0.3 ML SYR SQ SCH (08:26)
[2022-04-07] MEDS: FAMOTIDINE 20 MG TAB PO SCH (11:23)
--- NOTE | 2022-04-07 12:39 | Surgery Progress Note ---
Date of Service April 07, 2022 Assessment & Plan (1) History of intestinal surgery: Plan: Ileus clinically resolved. We will advance his diet. We will also remove both JPs. Much more awake and alert. Still has hoarseness which I suspect is from self extubated himself after the surgery. Per nursing he is ambulating nicely to the bathroom and back. We will have her check with medicine but would recommend removing his Lozoya. Continue physical therapy. Will likely need rehab prior to going home. Admission and Anticipated Discharge Date Admission Date: March 26, 2022 Subjective Patient seen. Dramatically improved over the past 24 hours. He is up sitting in a chair much more awake and alert. He ate his entire lunch which was full l iquids Physical Exam Physical Exam: Alert. No acute distress Right VONNIE with a small amount of what appears to be old blood. Left VONNIE with serous fluid. Stoma with large amount of small bowel output Results & Data ([facility]) Vital Signs (Past 12 Hours) Vital Signs Temp Pulse Pulse Resp BP BP Pulse Ox 04/07/22 11:33 36.4 C L 92 H 16 130/78 97 04/07/22 08:00 36.4 C L 96 H 98 H 16 148/70 H 96 04/07/22 04:25 36.6 C 96 H 19 139/61 94 PG Care Time/CCT Total # of Minutes Spent Total Time Spent with Patient: Total time spent is greater than 50% in coordination of care (as documented) at patient's floor/unit and/or counseling patient: Coding Level of Care Code None Diagnoses History of intestinal surgery Z98.890
[2022-04-07] MEDS: ACETAMINOPHEN 325 MG TAB PO PRN ×2 (13:26→22:27)
--- NOTE | 2022-04-07 14:33 | Hospitalist Progress Note ---
Date of Service April 07, 2022 Assessment & Plan (1) Perforated bowel: Plan: S/p 03/29 for exp lap converted to oral laparotomy with repair of perforation and diverting ileostomy - VONNIE drain management per primary service, remains intact x2 -Remains with poor ileostomy output and abdominal distention. KUB 04/05: Stable mild distention of multiple gas filled loops of small bowel compatible with postsurgical ileus. - KUB 04/06: Mild persistent gaseous distention of the small bowel which may represent postoperative ileus. - Bibasilar trace crackles which clear on deep breathing,? Atelectasis, encourage incentive spirometry. Remains on room air. Continue IV APAP 1g q8h prn mild to moderate pain PPN for several days while ileus was improving. May dc with PO improving. 04/07 patient has had marked improvement, ileus appears resolved. Diet advanced per surgery, drains to be removed per surgery. 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 Castro on 03/26/2022 with interval development of perforated bowel on 03/29 (3) Acute renal failure: Plan: - pt developed post op VIMAL, has stable electrolytes, and bicarb, likely ATN from prerenal issue due to low blood pressure - IVF administered and pt's renal function greatly improved/returned to baseline Slight elevation of creatinine today, but overall patient improving. Diet improving, orals encouraged and trend. Lozoya to be removed now the patient is ambulating and more alert, bladder scan as needed (4) Acute blood loss anemia: Plan: - Post operative anemia due to blood loss in setting of recent surgery - T&C and transfused 2 units PRBCs on 03/28 - H&H stable-of trended and stable. Continue CBC trending No microcytosis, but elevated RDW. transferrin saturation 11%, UIBC 179, TIBC 201. Ferritin normal, likely artificially elevated as phase reactant. Iron deficient. . x1 04/04. x1 04/05. With uptrending hemoglobin, once ileus resolved consider iron supplementation as outpatient. Given problems with ileus would consider polysaccharide version q. OD at low-dose to minimize constipation once improved. (5) Hypertension: Plan: - Lisinopril and Hydralazine were resumed on 03/29 - IV Hydralazine 10mg q6h prn sbp>180 or dbp>100 - MTP PO --> 25mg tartrate BID during mission - Continue lisinopril 40mg daily - Continue pain control - Hctz 25mg qAM continued -Normotensive 04/07 (6) Atrial flutter: Plan: - Patient has a history of atrial flutter managed with Dr. Flores at [facility] cardiology on metoprolol and Eliquis Patient remains tachycardic with intermittent hypertension. Does not appear volume contracted at bedside assessment. Improving overall - Continue MTP Hgb uptrending and stable. Ileus improved, do not anticipate need for return to surgery at this time. Has remained in sinus. on DVT PPx, may convert to/re sume eliquis ppx (7) Depression: Plan: - Continue Celexa (8) Dementia: Plan: - Continue Aricept - Delirium continues to be gradually improving, sleep continues to improve with melatonin If severe agitation may use olanzapine 2.5 mg IM, however monitor carefully in the setting of QTp. - Melatonin 6 mg p.o. nightly + Delirium precautions. Admission and Anticipated Discharge Date Admission Date: March 26, 2022 Subjective Seen at bedside this morning. He did have improved sleep last night. At bedside today he appears cognitively improved, still has prominent dementia and requires redirection but overall better. Abdomen is soft, greatly improved to palpation and continues to have output into the ostomy. Breathing comfortably. Denies chest pain/chest pressure/pain at bedside. Review of Systems Review of Systems: All systems reviewed & are unremarkable except as noted in Subjective Physical Exam Physical Exam: General: Oriented to name. No acute distress. Delirium/agitation continues to be improved from prior HEENT: Atraumatic, normocephalic. Vision and hearing grossly intact Pulm: Diminished, grossly clear without wheezes/rales. Trical chest rise. No increase in work of breathing. No respiratory distress. Cardiac: RRR, -mrg. Radial pulses intact and symmetrical. Abdominal: VONNIE drain x2 remain intact. Greatly improved abdominal distention today, abdomen remains soft. +output into ostomy. Results & Data Results & Data ([facility]) Vital Signs (Past 12 Hours) Vital Signs Temp Pulse Pulse Resp BP BP Pulse Ox 04/07/22 11:33 36.4 C L 92 H 16 130/78 97 06/28/22 08:00 36.4 C L 96 H 98 H 16 148/70 H 96 04/07/22 04:25 36.6 C 96 H 19 139/61 94 PG Care Time/CCT Total # of Minutes Spent Total Time Spent with Patient: Total time spent is greater than 50% in coordination of care (as documented) at patient's floor/unit and/or counseling patient: Coding Level of Care Code 32965 Subseq Hosp Care Lvl 2 Diagnoses Perforated bowel K63.1 Colonic stricture K56.699 Acute renal failure N17.9 Acute blood loss anemia D62 Hypertension I10 Hypertension type: essential hypertension Atrial flutter I48.3 Atrial flutter type: typical Depression F32.9 Dementia F03.90 Dementia behavioral disturbance: without behavioral disturbance Dementia type: unspecified type (1) Hypertension Hypertension type: essential hypertension Qualified Code(s): I10 - Essential (primary) hypertension (2) Atrial flutter Atrial flutter type: typical Qualified Code(s): I48.3 - Typical atrial flutter (3) Dementia Dementia behavioral disturbance: without behavioral disturbance Dementia type: unspecified type Qualified Code(s): F03.90 - Unspecified dementia without behavioral disturbance
[2022-04-07] MEDS: MELATONIN 3 MG TAB PO PRN (22:28)
[2022-04-08 06:42] LABS: Basophils # (auto) 0.01 K/uL (0-0.2); Basophils % (auto) 0.2 %; Eosinophils # (auto) 0.09 K/uL (0-0.5); Eosinophils % (auto) 1.5 %; Hematocrit (blood only) 33.8 % (42-52); Immature Granulocytes # (auto) 0.02 K/uL (0.00-0.02); Immature Granulocytes % (auto) 0.3 %; Lymphocytes # (auto) 1.15 K/uL (1.2-3.4); Lymphocytes % (auto) 19.5 %; Mean Corpuscular Hemoglobin 30.9 pg (25-34); Mean Corpuscular Hgb Conc 32.5 g/dL (32-36); Mean Corpuscular Volume 94.9 fL (80-100); Mean Platelet Volume 9.7 fL (7.4-10.4); Monocytes # (auto) 0.57 K/uL (0.11-0.59); Monocytes % (auto) 9.7 %; Neutrophils # (auto) 4.06 K/uL (1.4-6.5); Neutrophils % (auto) 68.8 %; Platelet Count 544 K/uL (130-400); RDW Standard Deviation 50.7 fL (36.4-46.3); Red Blood Count 3.56 M/uL (4.7-6.1)
[2022-04-08 06:47] LABS: Albumin Globulin Ratio 1.2 (0.9-2); Albumin Level 3.5 gm/dl (3.4-5.0); BUN Creatinine Ratio 22.3 (10-20); Bilirubin,Total 1.2 mg/dl (0.2-1.0); Creatinine Clr Calc Pharmacy 24.1 ml/min; Est GFR (African American) 30.5 ml/min; Est GFR (Non-African American) 26.3 ml/min; Globulin 2.9 gm/dl (2.5-4.0); Potassium 4.4 mmol/L (3.5-5.1); Total Protein 6.4 gm/dl (6.0-8.3)
[2022-04-08] MEDS: PIPERACILLIN/TAZOBACTAM 3.375 GM in DEXTROSE 5% 100 ML IV SCH ×3 (08:25→23:03)
[2022-04-08] MEDS: FAMOTIDINE 20 MG TAB PO SCH (08:27)
[2022-04-08] MEDS: ENOXAPARIN INJ 30 MG/0.3 ML SYR SQ SCH (08:27)
[2022-04-08] MEDS: METOPROLOL TARTRATE 25 MG TAB PO SCH ×2 (08:39→20:19)
--- NOTE | 2022-04-08 09:15 | Surgery Progress Note ---
Date of Service April 08, 2022 Assessment & Plan (1) History of intestinal surgery: Plan: Patient resting in bed, no acute distress. Pt resting so will examine abdomen upon rounding again WBC 5.9, Cr: 2.1. Afebrile. Making decent urine, will leave arroyo removal to medicine, but okay to d/c from our standpoint He has + ostomy output and diet was advanced to regular yesterday VONNIE x2 have been removed without issues Family has been educated on ostomy care Continue to work with PT/OT Apparently will need to come off 1:1 for 24 hours prior to discharge to facility Appreciate hospitalists assistance with patient as above. still some confusion but no agitation per nursing. eating. stoma functioning creatinine with slight bump and HR up/BP down...likely slightly dry from the stoma output. will restart some gentle hydration. Admission and Anticipated Discharge Date Admission Date: March 26, 2022 Subjective Patient is resting at bed with family and 1:1 at bedside. Did not awaken. Does not appear to be in any distress Physical Exam Physical Exam: resting in bed Results & Data ([facility]) Vital Signs (Past 12 Hours) Vital Signs Temp Pulse Pulse Resp BP Pulse Ox 04/08/22 08:23 91/53 L 04/08/22 06:55 36.4 C L 100 H 17 109/68 97 04/08/22 03:26 36.3 C L 80 24 117/62 98 04/07/22 23:19 93 H 04/07/22 23:00 36.5 C 83 24 122/66 95 PG Care Time/CCT Total # of Minutes Spent Total Time Spent with Patient: Total time spent is greater than 50% in coordination of care (as documented) at patient's floor/unit and/or counseling patient: Coding Level of Care Code None Diagnoses History of intestinal surgery Z98.890
[2022-04-08] MEDS: SODIUM CHLORIDE 0.9% 1000ML 1,000 ML IV SCH ×2 (11:05→23:02)
--- NOTE | 2022-04-08 13:41 | Hospitalist Progress Note ---
Date of Service April 08, 2022 Assessment & Plan (1) Perforated bowel: Plan: S/p 03/29 for exp lap converted to oral laparotomy with repair of perforation and diverting ileostomy - VONNIE drain management per primary service, remains intact x2 -Remains with poor ileostomy output and abdominal distention. KUB 04/05: Stable mild distention of multiple gas filled loops of small bowel compatible with postsurgical ileus. - KUB 04/06: Mild persistent gaseous distention of the small bowel which may represent postoperative ileus. - Remains on room air. Was on PPN for several days postoperatively due to ileus. Diet has been advanced per surgery and drains removed. 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 Castro on 03/26/2022 with interval development of perforated bowel on 03/29 (3) Acute renal failure: Plan: - pt developed post op VIMAL. Monitor intake and output. Discontinue lisinopril and hydrochlorothiazide temporarily. Serial lab studies. Fluid hydration. Continue Lozoya catheter for now. Monitor intake and output (4) Acute blood loss anemia: Plan: - Post operative anemia due to acute blood loss in setting of recent surgery - T&C and transfused 2 units PRBCs on 03/28 - H&H now stable. Serial labs (5) Hypertension: Plan: - Lisinopril and hydrochlorothiazide now on hold due to acute kidney injury. (6) Atrial flutter: Plan: - Patient has a history of atrial flutter managed by Dr. Flores at [facility] cardiology. On metoprolol and Eliquis - Telemetry (7) Depression: Plan: - Continue Celexa (8) Dementia: Plan: - Continue Aricept -Supportive care Plan: Disposition: Probable discharge to SNF facility Admission and Anticipated Discharge Date Admission Date: March 26, 2022 Subjective No complaints. Surgery entry noted. Creatinine has bumped to 2.1 consistent with acute kidney injury. Lisinopril and hydrochlorothiazide are placed on hold. He is receiving IV hydration per surgery orders Review of Systems 2 Review of Systems: Constitutional-no fever or chills ENT-no blurred vision, no double vision, no epistaxis, no sore throat Respiratory-no cough, no wheezing, no shortness of breath Cardiac-no palpitations, no chest pain, no syncope GI-no nausea, vomiting, diarrhea, melena, hematochezia -no urinary retention, no urinary incontinence, no dysuria, no hematuria Musculoskeletal-no joint pain, no muscle tenderness Skin-no bruising, no rashes, no pruritus Neuro-no isolated weakness, no paresthesia, no weakness Psych-no depression, no anxiety Physical Exam Physical Exam: General-alert and oriented x3, no fevers, no chills HEENT-head atraumatic and normocephalic, TMs intact bilaterally, pupils equal and reactive to light, extraocular muscles intact Neck-no lymphadenopathy or thyromegaly, trachea midline Chest-clear to auscultation percussion. No rales wheezing or rhonchi Cardiac-regular rate and rhythm, normal S1 and S2, no murmurs Abdomen-postoperative changes. Heavily bandaged. VONNIE drains have been removed. Bowel sounds are active Extremities-no cyanosis, clubbing, or edema Neuro-cranial nerves II through XII intact, motor and sensory function within normal limits, strength symmetrical , no focal deficits Psych-normal affect, normal mood Results & Data Results & Data ([facility]) Vital Signs (Past 12 Hours) Vital Signs Temp Pulse Pulse Resp BP BP Pulse Ox 04/08/22 11:01 36.3 C L 82 17 117/72 96 04/08/22 09:50 95 H 04/08/22 08:23 91/53 L 04/08/22 06:55 36.4 C L 100 H 17 109/68 97 04/08/22 03:26 36.3 C L 80 24 117/62 98 Laboratory Results 04/08/22 06:14 04/08/22 06:14 PG Care Time/CCT Total # of Minutes Spent Total Time Spent with Patient: Total time spent is greater than 50% in coordination of care (as documented) at patient's floor/unit and/or counseling patient: Coding Level of Care Code 44438 Subseq Hosp Care Lvl 3 Diagnoses Perforated bowel K63.1 Colonic stricture K56.699 Acute renal failure N17.9 Acute blood loss anemia D62 Hypertension I10 Hypertension type: essential hypertension Atrial flutter I48.3 Atrial flutter type: typical Depression F32.9 Dementia F03.90 Dementia behavioral disturbance: without behavioral disturbance Dementia type: unspecified type (1) Hypertension Hypertension type: essential hypertension Qualified Code(s): I10 - Essential (primary) hypertension (2) Atrial flutter Atrial flutter type: typical Qualified Code(s): I48.3 - Typical atrial flutter (3) Dementia Dementia behavioral disturbance: without behavioral disturbance Dementia type: unspecified type Qualified Code(s): F03.90 - Unspecified dementia without behavioral disturbance
[2022-04-08] MEDS: ONDANSETRON INJ 2 MG/ML 2 ML VIAL IV PRN (18:08)
[2022-04-08] MEDS: MELATONIN 3 MG TAB PO PRN (20:19)
[2022-04-09 06:17] LABS: Basophils # (auto) 0.02 K/uL (0-0.2); Basophils % (auto) 0.3 %; Eosinophils # (auto) 0.09 K/uL (0-0.5); Eosinophils % (auto) 1.3 %; Hematocrit (blood only) 33.1 % (42-52); Hemoglobin 10.8 g/dL (14.0-18.0); Immature Granulocytes # (auto) 0.03 K/uL (0.00-0.02); Immature Granulocytes % (auto) 0.4 %; Lymphocytes # (auto) 1.13 K/uL (1.2-3.4); Lymphocytes % (auto) 16.2 %; Mean Corpuscular Hemoglobin 30.7 pg (25-34); Mean Corpuscular Hgb Conc 32.6 g/dL (32-36); Mean Platelet Volume 9.9 fL (7.4-10.4); Neutrophils # (auto) 5.01 K/uL (1.4-6.5); Neutrophils % (auto) 71.8 %; Platelet Count 553 K/uL (130-400); RDW Coefficient of Variation 15.3 % (11.5-14.5); RDW Standard Deviation 51.7 fL (36.4-46.3); Red Blood Count 3.52 M/uL (4.7-6.1); White Blood Count 6.98 K/uL (4.8-10.8)
[2022-04-09 06:36] LABS: Albumin Globulin Ratio 1.1 (0.9-2); Albumin Level 3.2 gm/dl (3.4-5.0); BUN Creatinine Ratio 17.3 (10-20); Bilirubin,Total 0.9 mg/dl (0.2-1.0); Calcium 8.3 mg/dl (8.5-10.1); Creatinine Clr Calc Pharmacy 13.4 ml/min; Est GFR (Non-African American) 12.9 ml/min; Globulin 2.9 gm/dl (2.5-4.0); Potassium 4.9 mmol/L (3.5-5.1); Total Protein 6.1 gm/dl (6.0-8.3)
--- NOTE | 2022-04-09 09:43 | Nephrology Consultation ---
Date of Consultation April 09, 2022 Assessment & Plan (1) Hypertension: (2) Acute renal failure: (3) Pneumoperitoneum: (4) Perforated bowel: (5) Acute blood loss anemia: 89-year-old gentlemen with stage IIIA CKD, baseline creatinine 1.2-1.4, secondary to microvascular disease, initially admitted to the hospital for of elective sigmoid resection on 03/26/2022 for history of stricture causing abdominal pain and fecal incontinence. Postoperative course was complicated by anastomotic perforation and emergency laparotomy, diverting ileostomy on 03/29/2022. Developed VIMAL postoperatively, creatinine peaked to 3.3 but rapidly improved but again developed VIMAL with rapid worsening of creatinine over last 3 days and creatinine now again up to 3.5, electrolyte has been acceptable. VIMAL most likely hemodynamically mediated ATN with increased ostomy output, decreased p.o. intake. Unlikely postrenal obstruction. Possibility for AIN remains with antibiotic. Blood pressure relatively low but asymptomatic. -- Will wait for renal ultrasound to evaluate for any evidence of postrenal obs truction but seems less likely. -- Continue on maintenance IV fluid for now, avoid hypotension. -- Avoid all NSAIDs and other nephrotoxic medications, dose medications for eGFR less than 30. -- monitor renal function electrolyte closely, accurate intake and output Will follow Thank you for allowing me to participate in your patient's care. It was a pleasure to see Mr. Desir. History of Present Illness Reason for Consultation: VIMAL Attending Physician: Honorio Castro, History of Present Illness Mr. Desir is a 89-year-old male with PMH of Stage 3A CKD, HTN, DJD, ELIANA, atrial flutter (anticoagulated), GERD admitted to hospital on 03/26/22 for elective Sigmoid Colectomy with enterolysis. Nephrology consult was requested as he developed VIMAL with rapid worsening over last 3 days. EMR records are reviewed in detail during patient's visit. Serafin was admitted on 03/26/22 for elective sigmoid colon resection due to stricture associated causing abdominal pain and fecal incontinence. she was doing well postoperatively but on 03/29/2022 he was noted to have fever with abdominal distention and discomfort. CT A/P showed anastomotic perforation and pneumoperitoneum and he had emergency exploratory laparotomy with repair of anastomotic perforation with diverting ileostomy. postoperative course was complicated by VIMAL, creatinine peaked to 3.3 but improved quickly and in between creatinine was staying close to his baseline of 1.2-1.4. He again noted to have postsurgical ileus over last 2 /3 days. Renal function again started to worsen with creatinine 1.6 on 04/07/2022 and has been rapidly worsening since with creatinine up to 3.5 this morning. Has been having decent urine output and high ostomy output but overall close to net even. There is no history of any nephrotoxic medication exposure over last few days. Has been on Zosyn empirically. Blood pressure has been relatively low with occasional hypotensive episode. Stage III CKD most likely secondary to microvascular disease, baseline creatinine has been 1.2-1.4. Has low-grade proteinuria and microscopic hematuria. No family history of CKD or ESRD. Never smoker. He was awake, alert this morning however very lethargic, was falling asleep easily. Continues to have some postsurgical pain but it no abdominal distension. Denies shortness of breath or chest pain. No fever. Allergies Allergy/AdvReac Type Severity Reaction Status Date / Time Sulfa (Sulfonamide Allergy Intermediate Rash Verified 03/26/22 07:01 Antibiotics) vancomycin Allergy Intermediate LOWER Verified 03/26/22 07:01 EXTREMITY SWELLING, FEVER adhesive AdvReac Mild sKin Verified 03/26/22 07:01 tears-WITH TAPE gabapentin AdvReac Mild drowsy,conf Verified 03/26/22 07:01 used Home Medications Medication Instructions Recorded Confirmed Type cranberry 500 mg capsule 1,000 mg PO QAM 05/31/19 03/26/22 History lidocaine 5 % topical patch 1 patch TRANSDERMAL UD PRN ea 01/21/21 03/26/22 History hydralazine 25 mg tablet 25 mg PO TID 04/08/21 03/26/22 History metoprolol succinate 25 mg 25 mg PO QAM 04/18/21 03/26/22 History tablet,extended release 24 hr aspirin 81 mg tablet,delayed 81 mg PO QAM #30 tab 06/03/21 03/26/22 Rx release apixaban 2.5 mg tablet (Eliquis) 2.5 mg PO BID tab 07/08/21 03/26/22 History acetaminophen 500 mg capsule 1,000 mg PO TID 08/21/21 03/26/22 History alfuzosin 10 mg tablet,extended 10 mg PO QPM 08/21/21 03/26/22 History release 24 hr Saccharomyces boulardii 250 mg 250 mg PO QAM cap 11/24/21 03/26/22 History capsule (Florastor) azelastine 205.5 mcg (0.15 %) 2 spray INTRANASAL UD PRN 01/19/22 03/26/22 History nasal spray meclizine 25 mg tablet 25 mg PO UD PRN 01/19/22 03/26/22 History lisinopril 10 mg tablet 20 mg PO BID tab 02/12/22 03/26/22 History pantoprazole 40 mg tablet,delayed 40 mg PO BID #180 tab 02/12/22 03/26/22 Rx release tramadol 50 mg tablet 25 - 50 mg PO UD PRN #30 tab 03/02/22 03/26/22 Rx citalopram 40 mg tablet (Celexa) 40 mg PO QAM 03/26/22 03/26/22 History donepezil 23 mg tablet (Aricept) 23 mg PO HS 03/26/22 03/26/22 History Patient History Medical History (Updated 03/30/22 @ 04:13 by DESI Leone) Anxiety Atrial flutter DX OCT 2020> ELIQUIS/METOPROLOL -F/U DR POLI MEDEROS 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 BPH (benign prostatic hyperplasia) Cervical facet joint syndrome Cervical spinal stenosis Left C7 and 8 paresthesias CKD (chronic kidney disease) stage 3, GFR 30-59 ml/min follows PCP Diastolic heart failure Dyslipidemia GERD (gastroesophageal reflux disease) CONTROLLED Hearing difficulty History of COVID-19 01/22/22 tested at [facility] > headache, fatigue > resolved, no more symptoms History of kidney stones History of pancreatitis Last episode 05/2021 Hypertension Impaired fasting glucose Hgb A1C 6.8 on 11/25/20 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, HAS HARD TIME COMPREHENDING INFORMATION Nocturnal hypoxemia Occipital neuralgia of left side Sleep apnea CPAP Surgical History (Updated 04/06/22 @ 09:41 by Honorio Castro DO) H/O colonoscopy (06/2013) 02/2022 History of colon resection (03/26/22) Laparoscopic Sigmoid Colectomy with enterolysis (Not Applicable) - Honorio Castro DO History of cystoscopy History of difficult intubation CHOLECYSTECTOMY= 01/11/14= GLIDESCOPE #4 (2/2 DECREASED CERVICAL ROM) BUT HAD GRADE VIEW 1, MAC 4 WITH ANKLE SURGERY 11/09/14 PER [facility] RECORDS History of esophagogastroduodenoscopy (EGD) (09/2019) History of intestinal surgery (03/29/22) Diagnostic Laparoscopy Converted to Laparotomy, Repair os Anastomic Perforation with Diverting Ileostomy, and Rigid Sigmoidoscopy(Not Applicable) - Honorio Castro, History of shoulder surgery Rt shoulder - 09/22/18 [facility] History of total knee replacement B/L WITH REVISIONS; LEFT TKA REVISION= 05/13/17= SAB X 2 ATTEMPTS + PNB AT [facility] Hx of cervical spine surgery ROM LIMITED FROM SIDE TO SIDE Hx of total ankle replacement RIGHT S/P cholecystectomy S/P ERCP 04/20/21 Dr. Pablo Garibay- 2 stones removed, 2 stents placed Squamous cell carcinoma of back resolved Family History Son Family history of diabetes mellitus Daughter Family history of diabetes mellitus Other No family history of adverse response to anesthesia No pertinent family history Denies family history of Ovarian cancer Prostate cancer Myocardial infarction Breast cancer Colorectal cancer Social History Smoking Status: Never smoker Second Hand Exposure: No; Hx Alcohol Use: No Hx Substance Use: No Preferred Language: Nicaraguan Communication Ability: Effective Visual Impairment: No Limitations Car Carder Required: No Beliefs That Will Affect Care: None marital status: Current Living Situation: Family Current Living Situation Comment: Lives with , caregivers current occupational status: retired 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 Physical Exam Constitutional: WD/WN, vitals as above no acute distress Eyes: + anicteric sclerae Neck: normal visual inspection Respiratory: normal respiratory effort; no respiratory distress and no cough Auscultation: lungs clear to auscultation bilaterally Cardiovascular: Rate/Rhythm: regular rate and regular rhythm Extremities: no edema Gastrointestinal (Abdomen): Inspection/Auscultation: abdomen normal to inspection and normal bowel sounds Percussion/Palpation: abdomen soft; abdomen nontender Musculoskeletal: Extremities: extremities normal to inspection Skin: no rashes Neurologic: no focal motor deficits Psychiatric: Orientation: alert and oriented x 3 Affect: euthymic affect Results & Data ([facility]) Vital Signs (Past 12 Hours) Vital Signs Temp Pulse Pulse Pulse Resp BP BP 04/09/22 08:11 36.6 C 86 18 114/70 04/09/22 07:00 87 04/09/22 03:00 36.3 C L 83 20 120/74 04/08/22 23:00 37 C 79 20 114/72 04/08/22 22:56 86 Pulse Ox 04/09/22 08:11 94 04/09/22 07:00 04/09/22 03:00 95 04/08/22 23:00 95 04/08/22 22:56 PG Care Time/CCT Total # of Minutes Spent Total Time Spent with Patient: Total time spent is greater than 50% in coordination of care (as documented) at patient's floor/unit and/or counseling patient: Coding Level of Care Code 67395 Initial Inpt Care Lvl 3 Diagnoses Hypertension I10 Hypertension type: essential hypertension Acute renal failure N17.9 Pneumoperitoneum K66.8 Perforated bowel K63.1 Acute blood loss anemia D62 (1) Hypertension Hypertension type: essential hypertension Qualified Code(s): I10 - Essential (primary) hypertension
[2022-04-09] MEDS: FAMOTIDINE 20 MG TAB PO SCH (10:08)
[2022-04-09] MEDS: ENOXAPARIN INJ 30 MG/0.3 ML SYR SQ SCH (10:08)
[2022-04-09] MEDS: METOPROLOL TARTRATE 25 MG TAB PO SCH ×2 (10:08→20:00)
[2022-04-09 10:51] LABS: Creatinine Urine Random 180.7 mg/dl
--- NOTE | 2022-04-09 11:10 | Ultrasound Report ---
US renal/blad retro comp HISTORY: 89 years-old Male acute renal failure acute renal failure COMPARISON: KUB 04/06/2022, CT abdomen and pelvis 03/29/2022 TECHNIQUE: Multiple real-time sonographic images of the kidneys and urinary bladder were obtained ass essing grayscale appearance and color flow FINDINGS: The right kidney measures 9.0 x 5.0 x 4.1 cm and demonstrates diffuse cortical thinning with preserve d corticomedullary differentiation. No renal calculi, hydronephrosis or suspicious lesion of the righ t kidney. The left kidney measures 9.6 x 5.0 x 4.5 cm and also demonstrates diffuse cortical thinning with pres erved corticomedullary differentiation. 6 mm nonshadowing echogenic focus of the interpolar left kidn ey, possibly focal fat. No shadowing renal calculi are present. No hydronephrosis or suspicious lesio n. The urinary bladder is not diagnostically visualized. IMPRESSION: 1. No shadowing renal calculi or hydronephrosis. 2. Mild diffuse cortical thinning of the kidneys. ACT 112: Negative or not required by law. The above report was generated using voice recognition software. It may contain grammatical, syntax o r spelling errors. Electronically signed by: Brayden Gonsalez M.D. 04/09/2022 11:08 AM
[2022-04-09] MEDS: SODIUM CHLORIDE 0.9% 1000ML 1,000 ML IV SCH (11:35)
--- NOTE | 2022-04-09 11:44 | Hospitalist Progress Note ---
Date of Service April 09, 2022 Assessment & Plan (1) Perforated bowel: Plan: S/p 03/29 for exp lap converted to oral laparotomy with repair of perforation and diverting ileostomy - VONNIE drains have been removed by surgery. -Ileostomy output has improved. . KUB 04/05: Stable mild distention of multiple gas filled loops of small bowel compatible with postsurgical ileus. - KUB 04/06: Mild persistent gaseous distention of the small bowel which may r epresent postoperative ileus. - Remains on room air. Was on PPN for several days postoperatively due to ileus. Diet has been advanced per surgery and drains removed. 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 Castro on 03/26/2022 with interval development of perforated bowel on 03/29 (3) Acute renal failure: Plan: - pt developed post op VIMAL. Monitor intake and output. Discontinued lisinopril and hydrochlorothiazide temporarily. Serial lab studies. Continue fluid hydration. Continue Lozoya catheter for now. Monitor intake and output. Nephrology consultation appreciated. (4) Acute blood loss anemia: Plan: - Post operative anemia due to acute blood loss in setting of recent surgery - T&C and transfused 2 units PRBCs on 03/28 - H&H now stable. Serial labs (5) Hypertension: Plan: - Lisinopril and hydrochlorothiazide now on hold due to acute kidney injury. (6) Atrial flutter: Plan: - Patient has a history of atrial flutter managed by Dr. Flores at [facility] cardiology. On metoprolol and Eliquis - Telemetry -Eliquis restarted at low-dose today, April 09 (7) Depression: Plan: - Continue Celexa (8) Dementia: Plan: - Continue Aricept -Supportive care Plan: Disposition: Probable discharge to SNF facility Admission and Anticipated Discharge Date Admission Date: March 26, 2022 Subjective The patient is alert and oriented and seems to be improving. However creatinine continues to rise up to 3.8. Case discussed with nephrology in consultation noted. Renal ultrasound results are pending along with urine sodium and urine creatinine. Continue IV fluids. Lisinopril and hydrochlorothiazide remain on hold. Serial labs are ordered. Review of Systems Review of Systems: Constitutional-no fever or chills ENT-no blurred vision, no double vision, no epistaxis, no sore throat Respiratory-no cough, no wheezing, no shortness of breath Cardiac-no palpitations, no chest pain, no syncope GI-no nausea, vomiting, diarrhea, melena, hematochezia -no urinary retention, no urinary incontinence, no dysuria, no hematuria Musculoskeletal-no joint pain, no muscle tenderness Skin-no bruising, no rashes, no pruritus Neuro-no isolated weakness, no paresthesia, no weakness Psych-no depression, no anxiety Physical Exam Physical Exam: General-alert and oriented x3, no fevers, no chills HEENT-head atraumatic and normocephalic, TMs intact bilaterally, pupils equal and reactive to light, extraocular muscles intact Neck-no lymphadenopathy or thyromegaly, trachea midline Chest-clear to auscultation percussion. No rales wheezing or rhonchi Cardiac-regular rate and rhythm, normal S1 and S2, no murmurs Abdomen-normal bowel sounds, functioning ileostomy, no hepatosplenomegaly Extremities-no cyanosis, clubbing, or edema Neuro-cranial nerves II through XII intact, motor and sensory function within normal limits, strength symmetrical , no focal deficits Psych-normal affect, normal mood Results & Data Results & Data ([facility]) Vital Signs (Past 12 Hours) Vital Signs Temp Pulse Pulse Pulse Resp BP BP 04/09/22 10:07 90 114/73 04/09/22 08:11 36.6 C 86 18 114/70 04/09/22 07:00 87 04/09/22 03:00 36.3 C L 83 20 120/74 Pulse Ox 04/09/22 10:07 04/09/22 08:11 94 04/09/22 07:00 04/09/22 03:00 95 Laboratory Results 04/09/22 05:47 04/09/22 05:47 PG Care Time/CCT Total # of Minutes Spent Total Time Spent with Patient: Total time spent is greater than 50% in coordination of care (as documented) at patient's floor/unit and/or counseling patient: Coding Level of Care Code 87548 Subseq Hosp Care Lvl 3 Diagnoses Perforated bowel K63.1 Colonic stricture K56.699 Acute renal failure N17.9 Acute blood loss anemia D62 Hypertension I10 Hypertension type: essential hypertension Atrial flutter I48.3 Atrial flutter type: typical Depression F32.9 Dementia F03.90 Dementia behavioral disturbance: without behavioral disturbance Dementia type: unspecified type (1) Hypertension Hypertension type: essential hypertension Qualified Code(s): I10 - Essential (primary) hypertension (2) Atrial flutter Atrial flutter type: typical Qualified Code(s): I48.3 - Typical atrial flutter (3) Dementia Dementia behavioral disturbance: without behavioral disturbance Dementia type: unspecified type Qualified Code(s): F03.90 - Unspecified dementia without behavioral disturbance
--- NOTE | 2022-04-09 13:29 | Surgery Progress Note ---
Date of Service April 09, 2022 Assessment & Plan (1) History of intestinal surgery: Plan: Patient resting in bed, no acute distress Cr bumped again today 3.8. Wbc 6 Appreciate hospitalist assistance with pt. On gentle IVF. Nephrology consulted and renal US and urine studies will be obtained + ileostomy output.. could be contributing to his dehydration? Continue to encourage oral intake, he is on a regular diet Off 1:1 as of yesterday Continue to work with PT/OT Will likely d/c raudel tomorrow as above. stoma woring well. high fluid output ? cause of VIMAL. d/w IM. nephrology consulted more awake/alert today d/w family. if his kidney function improves in next couple of days could start considering transfer to a rehab facility. Admission and Anticipated Discharge Date Admission Date: March 26, 2022 Subjective Patient more awake than yesterday, but still sleepy. Says he is feeling so-so and is tired. Physical Exam Physical Exam: awake, but tired appearing Gastrointestinal (Abdomen): Inspection/Auscultation: + abdominal surgical incision (midline incision with raudel and jose) Percussion/Palpation: abdomen soft + liquid stool in ostomy bag Results & Data ([facility]) Vital Signs (Past 12 Hours) Vital Signs Temp Pulse Pulse Pulse Resp BP BP 04/09/22 12:21 36.5 C 90 17 132/75 04/09/22 10:07 90 114/73 04/09/22 08:11 36.6 C 86 18 114/70 04/09/22 07:00 87 04/09/22 03:00 36.3 C L 83 20 120/74 Pulse Ox 04/09/22 12:21 95 04/09/22 10:07 04/09/22 08:11 94 04/09/22 07:00 04/09/22 03:00 95 PG Care Time/CCT Total # of Minutes Spent Total Time Spent with Patient: Total time spent is greater than 50% in coordination of care (as documented) at patient's floor/unit and/or counseling patient: Coding Level of Care Code None Diagnoses History of intestinal surgery Z98.890
[2022-04-09] MEDS: APIXABAN 2.5 MG TAB PO SCH (20:00)
[2022-04-10] MEDS: SODIUM CHLORIDE 0.9% 1000ML 1,000 ML IV SCH ×2 (00:11→12:45)
[2022-04-10] MEDS: ACETAMINOPHEN 325 MG TAB PO PRN ×2 (01:06→12:26)
[2022-04-10] MEDS: MELATONIN 3 MG TAB PO PRN (01:06)
[2022-04-10 06:53] LABS: Basophils # (auto) 0.01 K/uL (0-0.2); Basophils % (auto) 0.2 %; Eosinophils # (auto) 0.07 K/uL (0-0.5); Eosinophils % (auto) 1.4 %; Hematocrit (blood only) 33.8 % (42-52); Hemoglobin 11.2 g/dL (14.0-18.0); Immature Granulocytes # (auto) 0.02 K/uL (0.00-0.02); Immature Granulocytes % (auto) 0.4 %; Lymphocytes # (auto) 0.97 K/uL (1.2-3.4); Lymphocytes % (auto) 19.1 %; Mean Corpuscular Hgb Conc 33.1 g/dL (32-36); Mean Corpuscular Volume 93.6 fL (80-100); Mean Platelet Volume 9.7 fL (7.4-10.4); Monocytes # (auto) 0.55 K/uL (0.11-0.59); Monocytes % (auto) 10.8 %; Neutrophils # (auto) 3.45 K/uL (1.4-6.5); Neutrophils % (auto) 68.1 %; Platelet Count 565 K/uL (130-400); RDW Standard Deviation 50.8 fL (36.4-46.3); Red Blood Count 3.61 M/uL (4.7-6.1); White Blood Count 5.07 K/uL (4.8-10.8)
[2022-04-10 07:19] LABS: Albumin Level 3.4 gm/dl (3.4-5.0); BUN Creatinine Ratio 23.4 (10-20); Calcium 8.5 mg/dl (8.5-10.1); Creatinine Clr Calc Pharmacy 15.9 ml/min; Est GFR (African American) 18.5 ml/min; Phosphorus 5.6 mg/dl (2.5-4.9); Potassium 4.4 mmol/L (3.5-5.1)
[2022-04-10] MEDS: METOPROLOL TARTRATE 25 MG TAB PO SCH ×2 (08:21→20:29)
[2022-04-10] MEDS: APIXABAN 2.5 MG TAB PO SCH ×2 (08:21→20:29)
[2022-04-10] MEDS: FAMOTIDINE 20 MG TAB PO SCH (08:21)
--- NOTE | 2022-04-10 09:07 | Surgery Progress Note ---
Date of Service April 10, 2022 Assessment & Plan (1) History of intestinal surgery: Plan: Patient resting in bed, no acute distress. RN feeding him bfast, ate some bites of pancakes -WBC 5, Cr still elevated at 3.2 (3.8). Vital signs are stable -Wound care nurse assisting with ostomy care. To d/c bridge today. Will need changed for leaking and re-assessed as needed to help prevent skin damage and leakage of stool into incisions - Patient remains on gentle IVF. Nephrology consulted; renal US showed some mild cortical thinning, otherwise ok - there is ileostomy output.. Continue to encourage oral intake, he is on a regular diet -Continue to work with PT/OT -Patient will remain hospitalized until improvement in Cr, likely through the weekend as he will require placement and it is a holiday coming up likely making placement more difficult -Appreciate hospitalists and nephrology assistance with pt -Will keep midline raudel in place until closer to discharge -[facility] covering the weekend as above. doing ok. alert. oriented. jennifer diet per nursing. creatinine with slight improvement. d/c planning to rehab once renal fx improves. continue PT Admission and Anticipated Discharge Date Admission Date: March 26, 2022 Subjective Patient says he is having some abdominal pain. Otherwise offers no complaints. Physical Exam Physical Exam: awake Respiratory: normal respiratory effort Gastrointestinal (Abdomen): Inspection/Auscultation: + abdominal surgical incision (midline raudel with jose drain in place) + ostomy w/ stool in bag, leaking onto skin, some surrounding irritation and redness noted Results & Data ([facility]) Vital Signs (Past 12 Hours) Vital Signs Temp Pulse Pulse Pulse Resp BP Pulse Ox 04/10/22 07:00 36.4 C L 86 18 138/73 96 04/10/22 03:21 36.7 C 85 20 133/74 95 04/10/22 00:00 84 04/09/22 23:18 36.4 C L 84 18 130/65 93 PG Care Time/CCT Total # of Minutes Spent Total Time Spent with Patient: Total time spent is greater than 50% in coordination of care (as documented) at patient's floor/unit and/or counseling patient: Coding Level of Care Code None Diagnoses History of intestinal surgery Z98.890
--- NOTE | 2022-04-10 09:56 | Nephrology Progress Note ---
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 Postoperative course was complicated by anastomotic perforation and emergency laparotomy, diverting ileostomy on 03/29/2022. Developed VIMAL postoperatively, creatinine peaked to 3.3 but rapidly improved but again developed VIMAL with rapid worsening of creatinine over last 3 days and creatinine now again up to 3.5, electrolyte has been acceptable. VIMAL most likely hemodynamically mediated ATN with increased ostomy output, decreased p.o. intake. Unlikely postrenal obstruction. Possibility for AIN remains with antibiotic. The renal ultrasound otherwise unremarkable. Blood pressure fair. continuing on IV normal saline, renal function improved slightly. -- Continue on maintenance IV fluid. -- Avoid all NSAIDs and other nephrotoxic medications, dose medications for eGFR less than 30. -- monitor renal function electrolyte closely, accurate intake and output Will follow Admission and Anticipated Discharge Date Admission Date: March 26, 2022 Chevy Betancourt was seen and evaluated in his room this morning. He has been having leaking around the ileostomy area and currently being replaced. Has been having some pain at the surgical site but otherwise asymptomatic. Has been getting IV fluid since yesterday, respiratory status acceptable. Blood pressure fair. Has been having decent urine output and overall net even with high ostomy output. Review of Systems Review of Systems: Detailed review of system was otherwise unremarkable except mentioned above in HPI. Physical Exam Constitutional: WD/WN, vitals as above + ill appearing; no acute distress Respiratory: Auscultation: lungs clear to auscultation bilaterally Cardiovascular: Rate/Rhythm: regular rate and regular rhythm Extremities: no edema Gastrointestinal (Abdomen): open ileostomy currently being replaced. Skin: no rashes Neurologic: no focal motor deficits Psychiatric: Orientation: alert and oriented x 3 Affect: euthymic affect Results & Data ([facility]) Vital Signs (Past 12 Hours) Vital Signs Temp Pulse Pulse Pulse Resp BP Pulse Ox 04/10/22 07:00 36.4 C L 86 18 138/73 96 04/10/22 03:21 36.7 C 85 20 133/74 95 04/10/22 00:00 84 04/09/22 23:18 36.4 C L 84 18 130/65 93 PG Care Time/CCT Total # of Minutes Spent Total Time Spent with Patient: Total time spent is greater than 50% in coordination of care (as documented) at patient's floor/unit and/or counseling patient: Coding Level of Care Code 69343 Subseq Hosp Care Lvl 3 Diagnoses Hypertension I10 Hypertension type: essential hypertension Acute renal failure N17.9 Pneumoperitoneum K66.8 Perforated bowel K63.1 Acute blood loss anemia D62 (1) Hypertension Hypertension type: essential hypertension Qualified Code(s): I10 - Essential (primary) hypertension
--- NOTE | 2022-04-10 10:17 | Hospitalist Progress Note ---
Date of Service April 10, 2022 Assessment & Plan (1) Perforated bowel: Plan: S/p 03/29 for exp lap converted to oral laparotomy with repair of perforation and diverting ileostomy - VONNIE drains have been removed by surgery. -Ileostomy function is normal. Was on PPN for several days postoperatively due to ileus. Diet has been advanced per surgery and drains removed. 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 Castro on 03/26/2022 with interval development of perforated bowel on 03/29 (3) Acute renal failure: Plan: - pt developed post op VIMAL. Monitor intake and output. Discontinued lisinopril and hydrochlorothiazide temporarily. Serial lab studies. Continue fluid hydration. Creatinine is now trending downward. Creatinine 3.2 today, April 10. Renal ultrasound negative for obstruction or hydronephrosis. Monitor intake and output. Nephrology consultation appreciated. (4) Acute blood loss anemia: Plan: - Post operative anemia due to acute blood loss in setting of recent surgery - T&C and transfused 2 units PRBCs on 03/28 - H&H now stable. Serial labs (5) Hypertension: Plan: - Lisinopril and hydrochlorothiazide now on hold due to acute kidney injury. (6) Atrial flutter: Plan: - Patient has a history of atrial flutter managed by Dr. Flores at [facility] cardiology. On metoprolol and Eliquis - Telemetry -Eliquis restarted at low-dose on April 09 (7) Depression: Plan: - Continue Celexa (8) Dementia: Plan: - Continue Aricept -Supportive care Plan: Disposition: Probable discharge to SNF facility Admission and Anticipated Discharge Date Admission Date: March 26, 2022 Subjective Alert and oriented. No acute distress. Creatinine is now improving down to 3.2. Renal ultrasound negative for obstruction/hydronephrosis. Eliquis was restarted at low-dose yesterday, April 09. Continue IV fluids. Lisinopril and hydrochlorothiazide remain on hold. Continue to monitor daily lab studies. He has completed his course of intravenous Zosyn. Review of Systems Review of Systems: Constitutional-no fever or chills ENT-no blurred vision, no double vision, no epistaxis, no sore throat Respiratory-no cough, no wheezing, no shortness of breath Cardiac-no palpitations, no chest pain, no syncope GI-no nausea, vomiting, diarrhea, melena, hematochezia -no urinary retention, no urinary incontinence, no dysuria, no hematuria Musculoskeletal-no joint pain, no muscle tenderness Skin-no bruising, no rashes, no pruritus Neuro-no isolated weakness, no paresthesia, no weakness Psych-no depression, no anxiety Physical Exam Physical Exam: General-alert and oriented x3, no fevers, no chills HEENT-head atraumatic and normocephalic, TMs intact bilaterally, pupils equal and reactive to light, extraocular muscles intact Neck-no lymphadenopathy or thyromegaly, trachea midline Chest-clear to auscultation percussion. No rales wheezing or rhonchi Cardiac-regular rate and rhythm, normal S1 and S2, no murmurs Abdomen-normal bowel sounds, no hepatosplenomegaly. Functioning ostomy Extremities-no cyanosis, clubbing, or edema Neuro-cranial nerves II through XII intact, motor and sensory function within normal limits, strength symmetrical , no focal deficits Psych-normal affect, normal mood Results & Data Results & [facility]) Vital Signs (Past 12 Hours) Vital Signs Temp Pulse Pulse Pulse Resp BP Pulse Ox 04/10/22 07:00 36.4 C L 86 18 138/73 96 04/10/22 03:21 36.7 C 85 20 133/74 95 04/10/22 00:00 84 04/09/22 23:18 36.4 C L 84 18 130/65 93 Laboratory Results 04/10/22 05:51 04/10/22 05:51 PG Care Time/CCT Total # of Minutes Spent Total Time Spent with Patient: Total time spent is greater than 50% in coordination of care (as documented) at patient's floor/unit and/or counseling patient: Coding Level of Care Code 90153 Subseq Hosp Care Lvl 3 Diagnoses Perforated bowel K63.1 Colonic stricture K56.699 Acute renal failure N17.9 Acute blood loss anemia D62 Hypertension I10 Hypertension type: essential hypertension Atrial flutter I48.3 Atrial flutter type: typical Depression F32.9 Dementia F03.90 Dementia behavioral disturbance: without behavioral disturbance Dementia type: unspecified type (1) Hypertension Hypertension type: essential hypertension Qualified Code(s): I10 - Essential (primary) hypertension (2) Atrial flutter Atrial flutter type: typical Qualified Code(s): I48.3 - Typical atrial flutter (3) Dementia Dementia behavioral disturbance: without behavioral disturbance Dementia type: unspecified type Qualified Code(s): F03.90 - Unspecified dementia without behavioral disturbance
[2022-04-11] MEDS: SODIUM CHLORIDE 0.9% 1000ML 1,000 ML IV SCH ×2 (01:03→12:30)
[2022-04-11 08:13] LABS: Albumin Level 3.2 gm/dl (3.4-5.0); BUN Creatinine Ratio 26.9 (10-20); Calcium 8.3 mg/dl (8.5-10.1); Creatinine Clr Calc Pharmacy 23.2 ml/min; Est GFR (African American) 29.2 ml/min; Est GFR (Non-African American) 25.2 ml/min; Phosphorus 3.6 mg/dl (2.5-4.9); Potassium 4.5 mmol/L (3.5-5.1)
[2022-04-11] MEDS: METOPROLOL TARTRATE 25 MG TAB PO SCH ×2 (08:47→20:01)
[2022-04-11] MEDS: FAMOTIDINE 20 MG TAB PO SCH (08:47)
[2022-04-11] MEDS: APIXABAN 2.5 MG TAB PO SCH ×2 (08:47→20:01)
--- NOTE | 2022-04-11 10:52 | Hospitalist Progress Note ---
Date of Service April 11, 2022 Assessment & Plan (1) Perforated bowel: Plan: S/p 03/29 for exp lap converted to oral laparotomy with repair of perforation and diverting ileostomy - VONNIE drains have been removed by surgery. -Ileostomy function is now normal. Was on PPN for several days postoperatively due to ileus. Diet has been advanced per surgery and drains removed. 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 Castro on 03/26/2022 with interval development of perforated bowel on 03/29 (3) Acute renal failure: Plan: - pt developed post op VIMAL. Monitor intake and output. Discontinued lisinopril and hydrochlorothiazide temporarily. Serial lab studies. Continue fluid hydration. Creatinine is now trending downward. Creatinine 2.2 today, April 11. Renal ultrasound negative for obstruction or hydronephrosis. Monitor intake and output. Nephrology consultation appreciated. (4) Acute blood loss anemia: Plan: - Post operative anemia due to acute blood loss in setting of recent surgery - T&C and transfused 2 units PRBCs on 03/28 - H&H now stable. Serial labs (5) Hypertension: Plan: - Lisinopril and hydrochlorothiazide now on hold due to acute kidney injury. (6) Atrial flutter: Plan: - Patient has a history of atrial flutter managed by Dr. Flores at [facility] ardiology. On metoprolol and Eliquis - Telemetry -Eliquis restarted at low-dose on April 09 (7) Depression: Plan: - Continue Celexa (8) Dementia: Plan: - Continue Aricept -Supportive care Plan: Disposition: Eventual discharge to Admission and Anticipated Discharge Date Admission Date: March 26, 2022 Subjective Alert. No acute distress. Creatinine continues to improve down to 2.2 with IV fluids. Lisinopril and hydrochlorothiazide remain on hold for now. Review of Systems Review of Systems: Constitutional-no fever or chills ENT-no blurred vision, no double vision, no epistaxis, no sore throat Respiratory-no cough, no wheezing, no shortness of breath Cardiac-no palpitations, no chest pain, no syncope GI-no nausea, vomiting, diarrhea, melena, hematochezia -no urinary retention, no urinary incontinence, no dysuria, no hematuria Musculoskeletal-no joint pain, no muscle tenderness Skin-no bruising, no rashes, no pruritus Neuro-no isolated weakness, no paresthesia, no weakness Psych-no depression, no anxiety Physical Exam Physical Exam: General-alert and oriented x3, no fevers, no chills HEENT-head atraumatic and normocephalic, TMs intact bilaterally, pupils equal and reactive to light, extraocular muscles intact Neck-no lymphadenopathy or thyromegaly, trachea midline Chest-clear to auscultation percussion. No rales wheezing or rhonchi Cardiac-regular rate and rhythm, normal S1 and S2 Abdomen-normal bowel sounds, no hepatosplenomegaly. Functioning ostomy Extremities-no cyanosis, clubbing, or edema Neuro-cranial nerves II through XII intact, motor and sensory function within normal limits, strength symmetrical , no focal deficits Psych-normal affect, normal mood Results & Data Results & Data ([facility]) Vital Signs (Past 12 Hours) Vital Signs Temp Pulse Pulse Resp BP Pulse Ox 04/11/22 09:40 100 H 04/11/22 08:03 36.7 C 104 H 19 138/76 96 04/11/22 03:33 36.9 C 90 20 112/59 L 96 04/10/22 23:11 36.8 C 80 20 122/72 96 Laboratory Results 04/10/22 05:51 04/11/22 06:39 PG Care Time/CCT Total # of Minutes Spent Total Time Spent with Patient: Total time spent is greater than 50% in coordination of care (as documented) at patient's floor/unit and/or counseling patient: Coding Level of Care Code 87284 Subseq Hosp Care Lvl 3 Diagnoses Perforated bowel K63.1 Colonic stricture K56.699 Acute renal failure N17.9 Acute blood loss anemia D62 Hypertension I10 Hypertension type: essential hypertension Atrial flutter I48.3 Atrial flutter type: typical Depression F32.9 Dementia F03.90 Dementia behavioral disturbance: without behavioral disturbance Dementia type: unspecified type (1) Hypertension Hypertension type: essential hypertension Qualified Code(s): I10 - Essential (primary) hypertension (2) Atrial flutter Atrial flutter type: typical Qualified Code(s): I48.3 - Typical atrial flutter (3) Dementia Dementia behavioral disturbance: without behavioral disturbance Dementia type: unspecified type Qualified Code(s): F03.90 - Unspecified dementia without behavioral disturbance
--- NOTE | 2022-04-11 11:26 | Nephrology Progress Note ---
Date of Service April 11, 2022 Assessment & Plan (1) Acute renal failure: (2) Hypertension: (3) Pneumoperitoneum: (4) Perforated bowel: (5) Acute blood loss anemia: Plan: 89-year-old gentlemen with stage IIIA CKD, baseline creatinine 1.2-1.4, secondary to microvascular disease, initially admitted to the hospital for of elective sigmoid resection on 03/26/2022 for history of stricture causing abdominal pain and fecal incontinence. Postoperative course was complicated by anastomotic perforation and emergency laparotomy, diverting ileostomy on 03/29/2022. Developed VIMAL postoperatively, creatinine peaked to 3.3 but rapidly improved but again developed VIMAL with rapid worsening of creatinine over last 3 days and creatinine now again up to 3.5, electrolyte has been acceptable. VIMAL most likely hemodynamically mediated ATN with increased ostomy output, decreased p.o. intake. Unlikely postrenal obstruction. Possibility for AIN remains with antibiotic. The renal ultrasound otherwise unremarkable. Blood pressure fair. continuing on IV normal saline, renal function continues to improve, creatinine down to 2.2, electrolyte acceptable. -- Continue on maintenance IV fluid but OK to DC if PO intake improves. -- Avoid all NSAIDs and other nephrotoxic medications, dose medications for eGFR less than 30. -- monitor renal function electrolyte closely, accurate intake and output Will follow Admission and Anticipated Discharge Date Admission Date: March 26, 2022 Chevy Betancourt was seen and evaluated in his room this morning. He has been doing well, tolerating soft diet, otherwise asymptomatic. VIMAL resolving, Cr down to 2.2. Blood pressure fair. Has been having decent urine output and overall net positive >500 ml with high ostomy output. Review of Systems Review of Systems: Detailed review of system was otherwise unremarkable except mentioned above in HPI. Physical Exam Constitutional: WD/WN, vitals as above + ill appearing; no acute distress Respiratory: Auscultation: lungs clear to auscultation bilaterally Cardiovascular: Rate/Rhythm: regular rate and regular rhythm Extremities: no edema Skin: no rashes Neurologic: no focal motor deficits Psychiatric: Orientation: alert and oriented x 3 Affect: euthymic affect Results & Data ([facility]) Vital Signs (Past 12 Hours) Vital Signs Temp Pulse Pulse Resp BP Pulse Ox 04/11/22 09:40 100 H 04/11/22 08:03 36.7 C 104 H 19 138/76 96 04/11/22 03:33 36.9 C 90 20 112/59 L 96 PG Care Time/CCT Total # of Minutes Spent Total Time Spent with Patient: Total time spent is greater than 50% in coordination of care (as documented) at patient's floor/unit and/or counseling patient: Coding Level of Care Code 45058 Subseq Hosp Care Lvl 3 Diagnoses Acute renal failure N17.9 Hypertension I10 Hypertension type: essential hypertension Pneumoperitoneum K66.8 Perforated bowel K63.1 Acute blood loss anemia D62 (1) Hypertension Hypertension type: essential hypertension Qualified Code(s): I10 - Essential (primary) hypertension
--- NOTE | 2022-04-11 12:04 | Surgery Progress Note ---
Date of Service April 11, 2022 Assessment & Plan (1) History of intestinal surgery: Plan: Patient doing well. Increasing p.o. intake. Continue PT/OT therapy. Probable placement early next week. Admission and Anticipated Discharge Date Admission Date: March 26, 2022 Subjective Doing well today. Denies nausea or vomiting. Increasing food intake. Denies pain. Physical Exam Physical Exam: awake Respiratory: normal respiratory effort Gastrointestinal (Abdomen): Inspection/Auscultation: + abdominal surgical incision (midline raudel with jose drain in place) Results & Data ([facility]) Vital Signs (Past 12 Hours) Vital Signs Temp Pulse Pulse Resp BP Pulse Ox 04/11/22 09:40 100 H 04/11/22 08:03 36.7 C 104 H 19 138/76 96 04/11/22 03:33 36.9 C 90 20 112/59 L 96
--- NOTE | 2022-04-11 21:08 | Communication Note ---
Date of Service: April 11, 2022 Notified by nursing about patient slightly confused and pulling off ileostomy bag. On my exam, there is erythema at RLQ distal to the ileostomy site. The ileostomy bag is currently removed. Nursing to replace and redress. No mitts indicated at this time. Consider 1:1 sitter if continues to pull. Please ask gen surg to examine ileostomy site. Update: requiring cloth mitts for attempting to remove equipment.
[2022-04-12] MEDS: SODIUM CHLORIDE 0.9% 1000ML 1,000 ML IV SCH ×2 (01:30→15:00)
[2022-04-12 07:07] LABS: Basophils # (auto) 0.01 K/uL (0-0.2); Basophils % (auto) 0.2 %; Eosinophils # (auto) 0.06 K/uL (0-0.5); Eosinophils % (auto) 1.4 %; Hematocrit (blood only) 33.1 % (42-52); Hemoglobin 10.7 g/dL (14.0-18.0); Immature Granulocytes # (auto) 0.02 K/uL (0.00-0.02); Immature Granulocytes % (auto) 0.5 %; Lymphocytes # (auto) 0.86 K/uL (1.2-3.4); Lymphocytes % (auto) 19.6 %; Mean Corpuscular Hemoglobin 30.4 pg (25-34); Mean Corpuscular Hgb Conc 32.3 g/dL (32-36); Mean Platelet Volume 9.5 fL (7.4-10.4); Monocytes % (auto) 9.1 %; Neutrophils # (auto) 3.03 K/uL (1.4-6.5); Neutrophils % (auto) 69.2 %; Platelet Count 561 K/uL (130-400); RDW Coefficient of Variation 15.4 % (11.5-14.5); Red Blood Count 3.52 M/uL (4.7-6.1); White Blood Count 4.38 K/uL (4.8-10.8)
[2022-04-12 07:25] LABS: Albumin Level 3.3 gm/dl (3.4-5.0); BUN Creatinine Ratio 23.8 (10-20); Calcium 8.8 mg/dl (8.5-10.1); Creatinine Clr Calc Pharmacy 30.8 ml/min; Est GFR (African American) 41.1 ml/min; Est GFR (Non-African American) 35.5 ml/min; Potassium 4.5 mmol/L (3.5-5.1)
[2022-04-12] MEDS: METOPROLOL TARTRATE 25 MG TAB PO SCH (07:56)
[2022-04-12] MEDS: APIXABAN 2.5 MG TAB PO SCH ×2 (07:56→20:14)
[2022-04-12] MEDS: FAMOTIDINE 20 MG TAB PO SCH (07:56)
[2022-04-12] MEDS ORDERED: METOPROLOL TARTRATE 25 MG TAB PO ONE (08:45)
--- NOTE | 2022-04-12 10:46 | Surgery Progress Note ---
Date of Service April 12, 2022 Assessment & Plan (1) History of intestinal surgery: Plan: Patient doing well. Increasing p.o. intake. Continue PT/OT therapy. Probable placement early next week. Admission and Anticipated Discharge Date Admission Date: March 26, 2022 Subjective Doing fairly well today. Denies nausea or vomiting. some pain today. Physical Exam Physical Exam: awake Respiratory: normal respiratory effort Gastrointestinal (Abdomen): Inspection/Auscultation: + abdominal surgical incision (midline raudel with jose drain in place) Results & Data ([facility]) Vital Signs (Past 12 Hours) Vital Signs Temp Pulse Pulse Resp BP BP Pulse Ox 04/12/22 07:04 37.0 C 101 H 18 154/75 H 04/12/22 03:16 36.7 C 90 20 119/78 96 04/11/22 22:57 36.7 C 82 20 143/65 H 98
--- NOTE | 2022-04-12 11:16 | Hospitalist Progress Note ---
Date of Service April 12, 2022 Assessment & Plan (1) Perforated bowel: Plan: S/p 03/29 for exp lap converted to oral laparotomy with repair of perforation and diverting ileostomy - VONNIE drains have been removed by surgery. -Ileostomy function is now normal. Was on PPN for several days postoperatively due to ileus. Diet has been advanced per surgery and drains removed. 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 Castro on 03/26/2022 with interval development of perforated bowel on 03/29 (3) Acute renal failure: Plan: - pt developed post op VIMAL. Monitor intake and output. Discontinued lisinopril and hydrochlorothiazide temporarily. Serial lab studies. Continue fluid hydration. Creatinine is now trending downward. Creatinine 2.2 today, April 11. Renal ultrasound negative for obstruction or hydronephrosis. Monitor intake and output. Nephrology consultation appreciated. (4) Acute blood loss anemia: Plan: - Post operative anemia due to acute blood loss in setting of recent surgery - T&C and transfused 2 units PRBCs on 03/28 - H&H now stable. Serial labs (5) Hypertension: Plan: - Lisinopril and hydrochlorothiazide now on hold due to acute kidney injury. Metoprolol dosage uptitrated today, April 12 (6) Atrial flutter: Plan: - Patient has a history of atrial flutter managed by Dr. Flores at [facility] cardiology. On metoprolol and Eliquis - Telemetry -Eliquis restarted at low-dose on April 09 (7) Depression: Plan: - Continue Celexa (8) Dementia: Plan: - Continue Aricept -Supportive care (9) Psychosis: Plan: Acute. Hospitalization induced. Low-dose Zyprexa twice daily started today, April 12. Will follow. Plan: Disposition: Eventual discharge to [facility] per primary service Admission and Anticipated Discharge Date Admission Date: March 26, 2022 Subjective The patient has developed acute psychosis from hospitalization. Scheduled low- dose Zyprexa dosing has been ordered. Metoprolol uptitrated for better heart rate and blood pressure control. Creatinine continues to improve down to 1.6. IV fluids taper down. Eventual discharge to [facility] per primary service this week. Review of Systems Review of Systems: The patient is disoriented and unable to provide any information regarding review of systems Physical Exam Physical Exam: General-alert but disoriented. No fevers, no chills HEENT-head atraumatic and normocephalic, TMs intact bilaterally, pupils equal and reactive to light, extraocular muscles intact Neck-no lymphadenopathy or thyromegaly, trachea midline Chest-clear to auscultation percussion. No rales wheezing or rhonchi Cardiac-regular rate and rhythm, normal S1 and S2 Abdomen-normal bowel sounds, nontender, no hepatosplenomegaly Extremities-no cyanosis, clubbing, or edema Neuro-cranial nerves II through XII intact, motor and sensory function within normal limits, strength symmetrical , no focal deficits Psych-disoriented Results & Data Results & Data ([facility]) Vital Signs (Past 12 Hours) Vital Signs Temp Pulse Pulse Resp BP BP Pulse Ox 04/12/22 07:04 37.0 C 101 H 18 154/75 H 04/12/22 03:16 36.7 C 90 20 119/78 96 Laboratory Results 04/12/22 06:10 04/12/22 06:10 PG Care Time/CCT Total # of Minutes Spent Total Time Spent with Patient: Total time spent is greater than 50% in coordination of care (as documented) at patient's floor/unit and/or counseling patient: Coding Level of Care Code 03293 Subseq Hosp Care Lvl 3 Diagnoses Perforated bowel K63.1 Colonic stricture K56.699 Acute renal failure N17.9 Acute blood loss anemia D62 Hypertension I10 Hypertension type: essential hypertension Atrial flutter I48.3 Atrial flutter type: typical Depression F32.9 Dementia F03.90 Dementia behavioral disturbance: without behavioral disturbance Dementia type: unspecified type Psychosis F29 (1) Hypertension Hypertension type: essential hypertension Qualified Code(s): I10 - Essential (primary) hypertension (2) Atrial flutter Atrial flutter type: typical Qualified Code(s): I48.3 - Typical atrial flutter (3) Dementia Dementia behavioral disturbance: without behavioral disturbance Dementia type: unspecified type Qualified Code(s): F03.90 - Unspecified dementia without behavioral disturbance
--- NOTE | 2022-04-12 12:13 | Nephrology Progress Note ---
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 Postoperative course was complicated by anastomotic perforation and emergency laparotomy, diverting ileostomy on 03/29/2022. Developed VIMAL postoperatively, creatinine peaked to 3.3 but rapidly improved but again developed VIMAL with rapid worsening of creatinine over last 3 days and creatinine now again up to 3.5, electrolyte has been acceptable. VIMAL most likely hemodynamically mediated ATN with increased ostomy output, decreased p.o. intake. Unlikely postrenal obstruction. Possibility for AIN remains with antibiotic. The renal ultrasound otherwise unremarkable. Blood pressure fair. Continuing on IV normal saline as p.o. intake remains poor, renal function continues to improve, creatinine down to 1.7, electrolyte acceptable. overall doing better but p.o. intake remains poor. -- OK to Continue on maintenance IV fluid, aim to keep net even -- Avoid all NSAIDs and other nephrotoxic medications, dose medications for eGFR less than 30. -- monitor renal function electrolyte closely, accurate intake and output Will follow Admission and Anticipated Discharge Date Admission Date: March 26, 2022 Chevy Betancourt was seen and evaluated in his room this morning. He has been doing well, tolerating soft diet with overall intake is poor, otherwise asymptomatic. VIMAL resolving, Cr down to 2.7. Blood pressure fair. Has been having decent urine output. Review of Systems Review of Systems: Detailed review of system was otherwise unremarkable except mentioned above in HPI. Physical Exam Constitutional: WD/WN, vitals as above + ill appearing; no acute distress Respiratory: Auscultation: lungs clear to auscultation bilaterally Cardiovascular: Rate/Rhythm: regular rate and regular rhythm Extremities: no edema Skin: no rashes Neurologic: no focal motor deficits Psychiatric: Orientation: alert and oriented x 3 Affect: euthymic affect Results & Data ([facility]) Vital Signs (Past 12 Hours) Vital Signs Temp Pulse Pulse Resp BP BP Pulse Ox 04/12/22 11:39 36.8 C 77 17 135/80 97 04/12/22 07:04 37.0 C 101 H 18 154/75 H 04/12/22 03:16 36.7 C 90 20 119/78 96 PG Care Time/CCT Total # of Minutes Spent Total Time Spent with Patient: Total time spent is greater than 50% in coordination of care (as documented) at patient's floor/unit and/or counseling patient: Coding Level of Care Code 83499 Subseq Hosp Care Lvl 3 Diagnoses Acute renal failure N17.9 Hypertension I10 Hypertension type: essential hypertension Pneumoperitoneum K66.8 Perforated bowel K63.1 Acute blood loss anemia D62 (1) Hypertension Hypertension type: essential hypertension Qualified Code(s): I10 - Essential (primary) hypertension
[2022-04-12] MEDS: OLANZAPINE 2.5 MG TAB PO SCH ×2 (12:21→20:14)
[2022-04-12] MEDS: METOPROLOL TARTRATE 50 MG TAB PO SCH (20:15)
[2022-04-12] MEDS: MELATONIN 3 MG TAB PO PRN (20:16)
[2022-04-13] MEDS: SODIUM CHLORIDE 0.9% 1000ML 1,000 ML IV SCH (03:23)
[2022-04-13 08:24] LABS: Albumin Level 3.2 gm/dl (3.4-5.0); BUN Creatinine Ratio 20.3 (10-20); Creatinine Clr Calc Pharmacy 34.9 ml/min; Est GFR (African American) 47.9 ml/min; Est GFR (Non-African American) 41.4 ml/min; Phosphorus 2.8 mg/dl (2.5-4.9); Potassium 4.6 mmol/L (3.5-5.1)
[2022-04-13] MEDS: OLANZAPINE 2.5 MG TAB PO SCH (09:34)
[2022-04-13] MEDS: APIXABAN 2.5 MG TAB PO SCH ×2 (09:34→20:19)
[2022-04-13] MEDS: METOPROLOL TARTRATE 50 MG TAB PO SCH ×2 (09:34→20:19)
[2022-04-13] MEDS: FAMOTIDINE 20 MG TAB PO SCH (09:34)
[2022-04-13] MEDS: CHLORASEPTIC 1.4% SOLN 180 ML BTL MT PRN (09:37)
--- NOTE | 2022-04-13 11:18 | Surgery Progress Note ---
Date of Service April 13, 2022 Assessment & Plan (1) History of intestinal surgery: Plan: Patient doing well. Increasing p.o. intake. Continue PT/OT therapy. Probable placement early next week. Admission and Anticipated Discharge Date Admission Date: March 26, 2022 Supervising Physician Co-Signing Physician Notes I personally saw and evaluated the patient with Andre Vargas PA-C and agree with the assessment and plan. 89-year-old male status post laparoscopic sigmoid colectomy, anastomotic leak with subsequent laparotomy repair of perforation and diverting ileostomy His ostomy seems to be putting out more today, still a bit distended and has some belching We will check a KUB today, we may start clear liquids He has tolerated the sips we started yesterday Continue PPN today Medicine following along for his comorbidities and delirium 04/13/2022 11:19AM, Dr. Mata Patient doing well. Increasing p.o. intake. Continue PT/OT therapy. Chevy Betancourt was seen and evaluated in his room this morning. He has been doing well, tolerating soft diet with overall intake is poor, otherwise asymptomatic. VIMAL resolving, Cr down to 2.7. Blood pressure fair. Has been having decent urine output. 04/13/2022 11:13AM, Dr. Mata F/U Laparotomy, Repair of Anastomotic Perforation, Diverting Ileostomy, and Rigid Sigmoidoscopy, pt is stable, tolerated diet, no fever, Physical Exam Constitutional: WD/WN, vitals as above Eyes: PERRL, conjunctivae normal, anicteric sclerae Neck: trachea midline, no thyromegaly Respiratory: normal respiratory effort, lungs clear to auscultation Cardiovascular: RRR, no murmur, no edema Gastrointestinal (Abdomen): soft, no distend, middle line incision intact, jose drainage intact, no redness, ileostomy is working, some stool in bag, Results & Data ([facility]) Vital Signs (Past 12 Hours) Vital Signs Temp Pulse Pulse Pulse Resp BP BP 04/13/22 09:33 91 H 141/83 H 04/13/22 08:00 77 04/13/22 07:14 37.0 C 83 16 126/73 04/13/22 03:33 36.7 C 82 18 148/62 H 04/13/22 00:00 36.9 C 75 18 155/82 H Pulse Ox 04/13/22 09:33 04/13/22 08:00 04/13/22 07:14 98 04/13/22 03:33 98 04/13/22 00:00 97
--- NOTE | 2022-04-13 11:55 | Nephrology Progress Note ---
Date of Service April 13, 2022 Assessment & Plan (1) Acute renal failure: (2) Hypertension: (3) Pneumoperitoneum: (4) Perforated bowel: (5) Acute blood loss anemia: Plan: 89-year-old gentlemen with stage IIIA CKD, baseline creatinine 1.2-1.4, secondary to microvascular disease, initially admitted to the hospital for of elective sigmoid resection on 03/26/2022 for history of stricture causing abdominal pain and fecal incontinence. Postoperative course was complicated by anastomotic perforation and emergency laparotomy, diverting ileostomy on 03/29/2022. Developed VIMAL postoperatively, creatinine peaked to 3.3 but rapidly improved but again developed VIMAL with rapid worsening of creatinine over last 3 days and creatinine now again up to 3.5, electrolyte has been acceptable. VIMAL most likely hemodynamically mediated ATN with increased ostomy output, decreased p.o. intake. Unlikely postrenal obstruction. Possibility for AIN remains with antibiotic. The renal ultrasound otherwise unremarkable. Blood pressure fair. Continuing on IV normal saline as p.o. intake remains poor, renal function continues to improve, creatinine down to 1.5, electrolyte acceptable. overall doing better but p.o. intake remains poor. -- expect renal function to continue to improve slowly. -- Avoid all NSAIDs and other nephrotoxic medications -- monitor renal function electrolyte closely, accurate intake and output Will sign off. Admission and Anticipated Discharge Date Admission Date: March 26, 2022 Chevy Betancourt was seen and evaluated in his room this morning. He has been doing well, tolerating Oral intake, otherwise asymptomatic. VIMAL resolving, Cr down to 1.5. Blood pressure fair. Has been having decent urine output. Review of Systems Review of Systems: Detailed review of system was otherwise unremarkable except mentioned above in HPI. Results & Data ([facility]) Vital Signs (Past 12 Hours) Vital Signs Temp Pulse Pulse Pulse Resp BP BP 04/13/22 11:28 36.6 C 75 18 131/80 04/13/22 09:33 91 H 141/83 H 04/13/22 08:00 77 04/13/22 07:14 37.0 C 83 16 126/73 04/13/22 03:33 36.7 C 82 18 148/62 H 04/13/22 00:00 36.9 C 75 18 155/82 H Pulse Ox 04/13/22 11:28 95 04/13/22 09:33 04/13/22 08:00 04/13/22 07:14 98 04/13/22 03:33 98 04/13/22 00:00 97 PG Care Time/CCT Total # of Minutes Spent Total Time Spent with Patient: Total time spent is greater than 50% in coordination of care (as documented) at patient's floor/unit and/or counseling patient: Coding Level of Care Code 44675 Subseq Hosp Care Lvl 2 Diagnoses Acute renal failure N17.9 Hypertension I10 Hypertension type: essential hypertension Pneumoperitoneum K66.8 Perforated bowel K63.1 Acute blood loss anemia D62 (1) Hypertension Hypertension type: essential hypertension Qualified Code(s): I10 - Essential (primary) hypertension
[2022-04-13] MEDS ORDERED: OLANZAPINE 2.5 MG TAB PO PRN (15:43)
[2022-04-13] MEDS ORDERED: OLANZapine 10 MG/2.1 ML SDV IM PRN (15:43)
--- NOTE | 2022-04-13 15:48 | Hospitalist Progress Note ---
Date of Service April 13, 2022 Assessment & Plan (1) Perforated bowel: Plan: S/p 03/29 for exp lap converted to oral laparotomy with repair of perforation and diverting ileostomy - VONNIE drains have been removed by surgery. -Ileostomy function is now normal. Was on PPN for several days postoperatively due to ileus. Diet has been advanced per surgery and drains removed. 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 Castro on 03/26/2022 with interval development of perforated bowel on 03/29 (3) Acute renal failure: Plan: - Improving, follow; continue gentle volume (4) Acute blood loss anemia: Plan: - Post operative anemia due to acute blood loss in setting of recent surgery - T&C and transfused 2 units PRBCs on 03/28 -Follow from our perspective (5) Hypertension: Plan: - Lisinopril and hydrochlorothiazide now on hold due to acute kidney injury. Metoprolol dosage uptitrated April 12-no change (6) Atrial flutter: Plan: - Patient has a history of atrial flutter managed by Dr. Flores at [facility] cardiology. On metoprolol and Eliquis - Telemetry -Eliquis restarted at low-dose on April 09 (7) Depression: Plan: - Continue Celexa (8) Dementia: Plan: - Continue Aricept -Supportive care (9) Delirium: Plan: Sedate, Zyprexa made as needed, scheduled melatonin Plan: Disposition: Eventual discharge to [facility] per primary service Admission and Anticipated Discharge Date Admission Date: March 26, 2022 Subjective Follow-up for general medical management, VIMAL, agitationsedate Physical Exam Physical Exam: Constitutional and general: No acute distress but sedate; looks biologic age Head and face: No puffiness, atraumatic Eyes: No scleral icterus, extraocular movements normal Neck: Supple, no JVD Musculoskeletal: No acute joint swelling, no bony abnormalities Skin/dermatologic/integument: No rash, no purpura Hematologic and lymphatic: pallor +, no petechia Gastrointestinal/abdomen: Nondistended, soft, nonacute Neurologic: Cranial nerves intact, nonfocal Cardiovascular: Heart rhythm regular, no rub, no murmur, no gallop Respiratory: Chest movements equal, no use of accessory muscles, no adventitious sounds Extremities: No edema, no cyanosis Results & Data Results & Data ([facility]) Vital Signs (Past 12 Hours) Vital Signs Temp Pulse Pulse Resp BP Pulse Ox 04/13/22 15:16 36.3 C L 78 17 132/76 97 04/13/22 11:28 36.6 C 75 18 131/80 95 04/13/22 09:33 91 H 141/83 H 04/13/22 08:00 77 04/13/22 07:14 37.0 C 83 16 126/73 98 Laboratory Results Laboratory Results - last 24 hr 04/13/22 05:59 Sodium 141 Potassium 4.6 Chloride 113 H Carbon Dioxide 22 Anion Gap 6 BUN 30 H Creatinine 1.48 H Est Cr Clr Drug Dosing 34.9 Est GFR ( Amer) 47.9 Est GFR (Non-Af Amer) 41.4 BUN/Creatinine Ratio 20.3 H Glucose 106 H Calcium 9.0 Phosphorus 2.8 Albumin 3.2 L PG Care Time/CCT Total # of Minutes Spent Total Time Spent with Patient: Total time spent is greater than 50% in coordination of care (as documented) at patient's floor/unit and/or counseling patient: Coding Level of Care Code 87061 Subseq Hosp Care Lvl 2 Diagnoses Perforated bowel K63.1 Colonic stricture K56.699 Acute renal failure N17.9 Acute blood loss anemia D62 Hypertension I10 Hypertension type: essential hypertension Atrial flutter I48.3 Atrial flutter type: typical Depression F32.9 Dementia F03.90 Dementia behavioral disturbance: without behavioral disturbance Dementia type: unspecified type Delirium R41.0 (1) Hypertension Hypertension type: essential hypertension Qualified Code(s): I10 - Essential (primary) hypertension (2) Atrial flutter Atrial flutter type: typical Qualified Code(s): I48.3 - Typical atrial flutter (3) Dementia Dementia behavioral disturbance: without behavioral disturbance Dementia type: unspecified type Qualified Code(s): F03.90 - Unspecified dementia without behavioral disturbance
[2022-04-13] MEDS: MELATONIN 3 MG TAB PO SCH (20:20)
[2022-04-14 08:11] LABS: Albumin Level 3.6 gm/dl (3.4-5.0); BUN Creatinine Ratio 19.4 (10-20); Calcium 9.7 mg/dl (8.5-10.1); Creatinine Clr Calc Pharmacy 33.4 ml/min; Est GFR (African American) 45.3 ml/min; Est GFR (Non-African American) 39.1 ml/min; Phosphorus 3.5 mg/dl (2.5-4.9); Potassium 4.5 mmol/L (3.5-5.1)
[2022-04-14] MEDS ORDERED: NYSTATIN POWDER 15GM BTL EXT PRN (08:33)
--- NOTE | 2022-04-14 08:40 | Surgery Progress Note ---
Date of Service April 14, 2022 Assessment & Plan (1) History of intestinal surgery: Plan: renal function improved over weekend. nephrology signed off. appreciate help per notes over weekend pt eating well and stoma functioning well mycostatin for skin yeast infection of right groin will remove raudel today I believe he needs more stimulation. ok to organize transition to rehab from my perspective. Admission and Anticipated Discharge Date Admission Date: March 26, 2022 Subjective pt sleeping. no distress Physical Exam Gastrointestinal (Abdomen): soft. midline wound looks good. no sign of infection stoma intact/functioning. + yeast dermatitis in skin fold of groin below stoma Results & Data ([facility]) Vital Signs (Past 12 Hours) Vital Signs Temp Pulse Pulse Pulse Resp BP BP 04/14/22 07:22 36.8 C 90 18 147/83 H 04/14/22 04:24 94 H 04/14/22 03:00 36.5 C 96 H 18 147/82 H 04/13/22 22:59 36.6 C 71 18 156/76 H Pulse Ox 04/14/22 07:22 95 04/14/22 04:24 04/14/22 03:00 95 04/13/22 22:59 96 PG Care Time/CCT Total # of Minutes Spent Total Time Spent with Patient: Total time spent is greater than 50% in coordination of care (as documented) at patient's floor/unit and/or counseling patient: Coding Level of Care Code None Diagnoses History of intestinal surgery Z98.890
[2022-04-14] MEDS: APIXABAN 2.5 MG TAB PO SCH ×2 (09:50→20:26)
[2022-04-14] MEDS: FAMOTIDINE 20 MG TAB PO SCH (09:50)
[2022-04-14] MEDS: METOPROLOL TARTRATE 50 MG TAB PO SCH ×2 (09:50→20:26)
[2022-04-14] MEDS: SODIUM CHLORIDE 0.9% 1000ML 1,000 ML IV SCH (10:47)
--- NOTE | 2022-04-14 10:50 | Hospitalist Progress Note ---
Date of Service April 14, 2022 Assessment & Plan (1) Perforated bowel: Plan: S/p 03/29 for exp lap converted to oral laparotomy with repair of perforation and diverting ileostomy - VONNIE drains have been removed by surgery. -Ileostomy function is now normal. Was on PPN for several days postoperatively due to ileus. Diet has been advanced per surgery and drains removed. 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 Castro on 03/26/2022 with interval development of perforated bowel on 03/29 (3) Acute renal failure: Plan: - More or less stable, can DC IV fluids and observe; if discharge nephrology follow-upI took the liberty of adding Should follow BMP at facility about 1 to twice a week (4) Acute blood loss anemia: Plan: - Post operative anemia due to acute blood loss in setting of recent surgery - T&C and transfused 2 units PRBCs on 03/28 -Follow from our perspective (5) Hypertension: Plan: - Lisinopril and hydrochlorothiazide now on hold due to acute kidney injury. Metoprolol dosage uptitrated April 12-no change today - (6) Atrial flutter: Plan: - Patient has a history of atrial flutter managed by Dr. Flores at [facility] cardiology. 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 (7) Depression: Plan: - Continue Celexa (8) Dementia: Plan: - Noted bicarbonatecan follow (9) Delirium: Plan: No change from my perspective Plan: Disposition: Eventual discharge to [facility] per primary service; can be discharged to rehab from my perspectiveI see no value in continuing hospitalization at present Admission and Anticipated Discharge Date Admission Date: March 26, 2022 Subjective Follow-up for general medical management, AKA, agitation -doing better, no agitation, Physical Exam Physical Exam: Constitutional and general: No acute distress ; looks biologic age Head and face: No puffiness, atraumatic Eyes: No scleral icterus, extraocular movements normal Neck: Supple, no JVD Musculoskeletal: No acute joint swelling, no bony abnormalities Skin/dermatologic/integument: No rash, no purpura Hematologic and lymphatic: pallor +, no petechia Gastrointestinal/abdomen: Nondistended, soft, nonacute Neurologic: Cranial nerves intact, nonfocal Cardiovascular: Heart rhythm regular, no rub, no murmur, no gallop Respiratory: Chest movements equal, no use of accessory muscles, no adventitious sounds Extremities: No edema, no cyanosis Volume replete Results & Data Results & Data ([facility]) Vital Signs (Past 12 Hours) Vital Signs Temp Pulse Pulse Pulse Resp BP BP 04/14/22 07:22 36.8 C 90 18 147/83 H 04/14/22 04:24 94 H 04/14/22 03:00 36.5 C 96 H 18 147/82 H 04/13/22 22:59 36.6 C 71 18 156/76 H Pulse Ox 04/14/22 07:22 95 04/14/22 04:24 04/14/22 03:00 95 04/13/22 22:59 96 Laboratory Results Laboratory Results - last 24 hr 04/14/22 07:26 Sodium 137 Potassium 4.5 Chloride 110 H Carbon Dioxide 19 L Anion Gap 8 BUN 30 H Creatinine 1.55 H Est Cr Clr Drug Dosing 33.4 Est GFR ( Amer) 45.3 Est GFR (Non-Af Amer) 39.1 BUN/Creatinine Ratio 19.4 Glucose 121 H Calcium 9.7 Phosphorus 3.5 Albumin 3.6 PG Care Time/CCT Total # of Minutes Spent Total Time Spent with Patient: Total time spent is greater than 50% in coordination of care (as documented) at patient's floor/unit and/or counseling patient: Coding Level of Care Code 51571 Subseq Hosp Care Lvl 2 Diagnoses Perforated bowel K63.1 Colonic stricture K56.699 Acute renal failure N17.9 Acute blood loss anemia D62 Hypertension I10 Hypertension type: essential hypertension Atrial flutter I48.3 Atrial flutter type: typical Depression F32.9 Dementia F03.90 Dementia behavioral disturbance: without behavioral disturbance Dementia type: unspecified type Delirium R41.0 (1) Hypertension Hypertension type: essential hypertension Qualified Code(s): I10 - Essential (primary) hypertension (2) Atrial flutter Atrial flutter type: typical Qualified Code(s): I48.3 - Typical atrial flutter (3) Dementia Dementia behavioral disturbance: without behavioral disturbance Dementia type: unspecified type Qualified Code(s): F03.90 - Unspecified dementia without behavioral disturbance
[2022-04-14] MEDS: MELATONIN 3 MG TAB PO SCH (20:26)
[2022-04-15] MEDS: ONDANSETRON INJ 2 MG/ML 2 ML VIAL IV PRN (07:15)
[2022-04-15] MEDS ORDERED: LACTATED RINGER'S 1,000 ML IV SCH (07:45)
[2022-04-15 07:49] LABS: Calcium 10.5 mg/dl (8.5-10.1); Creatinine Clr Calc Pharmacy 20.2 ml/min; Est GFR (African American) 24.7 ml/min; Est GFR (Non-African American) 21.3 ml/min; Potassium 4.9 mmol/L (3.5-5.1)
--- NOTE | 2022-04-15 08:20 | XRay Report ---
KUB HISTORY: Acute nausea with vomiting vomiting COMPARISON: KUB 04/06/2022 FINDINGS: Surgical clips of the right upper quadrant abdomen. Nonobstructive bowel gas pattern. Air i s noted within the stomach. Right lower quadrant ostomy. Surgical suture material within the pelvis. No renal calculi. No ureteral calculi. No pneumoperitoneum or pneumatosis. Degenerative changes of t he spine, pelvis and hips. Mild mid lumbar dextroscoliosis. No fracture. IMPRESSION: Nonobstructive bowel gas pattern. ACT 112: Negative or not required by law. The above report was generated using voice recognition software. It may contain grammatical, syntax o r spelling errors. Electronically signed by: Brayden Gonsalez M.D. 04/15/2022 8:18 AM
[2022-04-15] MEDS ORDERED: ACETAMINOPHEN 1000 MG/100 ML IV IV ONE (08:21)
--- NOTE | 2022-04-15 08:27 | Surgery Progress Note ---
Date of Service April 15, 2022 Assessment & Plan (1) Nausea and vomiting in adult: Plan: labs/KUB pending will order a chest CT to r/o PE further rec's after labs/imaging complete. \ IV tylenol for headache (2) Headache: (3) Chest pain: (4) Tachycardia: Admission and Anticipated Discharge Date Admission Date: March 26, 2022 Subjective called by nursing this AM. pt with n/v since 7 AM. pt seen. c/o severe headache, lower chest pain, nausea. Physical Exam Physical Exam: alert and oriented. Heart: reg/tachy abd: soft. nondistended. stoma looks good/functioning. midline incision looks good. no infection. Results & Data ([facility]) Vital Signs (Past 12 Hours) Vital Signs Temp Pulse Pulse Pulse Resp BP BP 04/15/22 07:00 36.4 C L 126 H 21 107/75 04/15/22 03:29 36.4 C L 92 H 22 135/84 04/14/22 23:26 36.4 C L 81 22 137/83 04/14/22 23:10 88 Pulse Ox 04/15/22 07:00 94 04/15/22 03:29 97 04/14/22 23:26 96 04/14/22 23:10 PG Care Time/CCT Total # of Minutes Spent Total Time Spent with Patient: Total time spent is greater than 50% in coordination of care (as documented) at patient's floor/unit and/or counseling patient: Coding Level of Care Code None Diagnoses Nausea and vomiting in adult R11.2 Headache R51.9 Chest pain R07.9 Tachycardia R00.0
[2022-04-15 08:45] LABS: Basophils # (auto) 0.02 K/uL (0-0.2); Basophils % (auto) 0.2 %; Eosinophils # (auto) 0.03 K/uL (0-0.5); Eosinophils % (auto) 0.4 %; Hematocrit (blood only) 41.5 % (42-52); Hemoglobin 13.9 g/dL (14.0-18.0); Immature Granulocytes # (auto) 0.04 K/uL (0.00-0.02); Immature Granulocytes % (auto) 0.5 %; Lymphocytes # (auto) 1.04 K/uL (1.2-3.4); Lymphocytes % (auto) 12.7 %; Mean Corpuscular Hemoglobin 31.2 pg (25-34); Mean Platelet Volume 9.9 fL (7.4-10.4); Monocytes # (auto) 0.42 K/uL (0.11-0.59); Monocytes % (auto) 5.1 %; Neutrophils # (auto) 6.67 K/uL (1.4-6.5); Neutrophils % (auto) 81.1 %; Platelet Count 623 K/uL (130-400); RDW Coefficient of Variation 15.1 % (11.5-14.5); RDW Standard Deviation 51.4 fL (36.4-46.3); Red Blood Count 4.46 M/uL (4.7-6.1); White Blood Count 8.22 K/uL (4.8-10.8)
[2022-04-15 08:51] LABS: Mean Corpuscular Hgb Conc 33.5 g/dL (32-36)
[2022-04-15 09:09] LABS: Bilirubin,Total 0.6 mg/dl (0.2-1.0); Globulin 3.9 gm/dl (2.5-4.0); Total Protein 7.9 gm/dl (6.0-8.3)
[2022-04-15] MEDS: FAMOTIDINE 20 MG TAB PO SCH (10:44)
[2022-04-15] MEDS: METOPROLOL TARTRATE 50 MG TAB PO SCH ×2 (10:44→22:11)
[2022-04-15] MEDS: APIXABAN 2.5 MG TAB PO SCH (12:01)
--- NOTE | 2022-04-15 12:15 | XRay Report ---
XR chest 1V portable CLINICAL HISTORY: tachycardia. COMPARISON STUDY: 04/04/2022 TECHNIQUE: 1 view of the chest FINDINGS: Single frontal view of the chest demonstrates the cardiomediastinal silhouette to be within normal li mits. PICC line has been removed. There is asymmetric elevation of the right hemidiaphragm. The lungs are clear of alveolar opacities. There is no evidence for pleural effusion. There is no evidence for vascular congestion. There is no acute osseous pathology. IMPRESSION: 1. No acute cardiopulmonary disease. ACT 112: Negative or not required by law. Electronically signed by: Jax Rowe M.D. 04/15/2022 12:14 PM
--- NOTE | 2022-04-15 14:19 | Ultrasound Report ---
BILATERAL LOWER EXTREMITY VENOUS DOPPLER HISTORY: Acute pain and swelling of the lower legs eval for DVT in pt with tachycardia COMPARISON STUDY: 10/23/2020 FINDINGS: There is normal compressibility, flow, and augmentation within the right lower extremity de ep venous structures. Occlusive thrombus of the left common femoral and proximal superficial femoral veins, favored to be a cute. Thrombus measures up to 5.5 cm in length. The calf veins are not well visualized. IMPRESSION: 1. Occlusive DVT of the left lower extremity. 2. No DVT within the right lower extremity. ACT 112: Negative or not required by law. Electronically signed by: Brayden Gonsalez M.D. 04/15/2022 2:18 PM
[2022-04-15] MEDS ORDERED: Heparin IV Adult Wt-Based Standard WITH Bolus Protocol STA ×2 (15:57→16:01)
--- NOTE | 2022-04-15 15:57 | Hospitalist Progress Note ---
Date of Service April 15, 2022 Assessment & Plan (1) DVT (deep venous thrombosis): Plan: New event, acute DVT, likely PEIV heparin for now; later consider DOAC (2) Perforated bowel: Plan: S/p 03/29 for exp lap converted to oral laparotomy with repair of perforation and diverting ileostomy - VONNIE drains have been removed by surgery. -Ileostomy function is now normal. Was on PPN for several days postoperatively due to ileus. Diet has been advanced per surgery and drains removed. 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 Castro on 03/26/2022 with interval development of perforated bowel on 03/29 (4) Acute renal failure: Plan: -Sudden decline in renal function likely related to #1 (PE) volume, nephrology contacted (5) Acute blood loss anemia: Plan: - Higher hemoglobin may be spurious, hemoconcentrationvolume as above (6) Hypertension: Plan: - Lisinopril and hydrochlorothiazide now on hold due to acute kidney injury. Metoprolol dosage uptitrated April 12-no change at present (7) Atrial flutter: Plan: - Patient has a history of atrial flutter managed by Dr. Flores at [facility] cardiology. On metoprolol and Eliquis - (8) Depression: Plan: - Continue Celexa (9) Dementia: Plan: - Noted bicarbonatecan follow (10) Delirium: Plan: No change Plan: Disposition: Eventual discharge to [facility] per primary service; can be discharged to rehab from my perspectiveI see no value in continuing hospitalization at present Admission and Anticipated Discharge Date Admission Date: March 26, 2022 Subjective Follow-up for general medical management, AKA, agitation-this am tachycardia, nausea Physical Exam Physical Exam: Constitutional and general: sedate ; looks biologic age Head and face: No puffiness, atraumatic Eyes: No scleral icterus, extraocular movements normal Neck: Supple, no JVD Musculoskeletal: No acute joint swelling, no bony abnormalities Skin/dermatologic/integument: No rash, no purpura Hematologic and lymphatic: pallor mild, no petechia Gastrointestinal/abdomen: Nondistended, soft, nonacute Neurologic: Cranial nerves intact, nonfocal Cardiovascular: Heart rhythm regular, no rub, no murmur, no gallop, tachycardic Respiratory: Chest movements equal, no use of accessory muscles, no adventitious sounds Results & Data Results & Data ([facility]) Vital Signs (Past 12 Hours) Vital Signs Temp Pulse Pulse Pulse Resp BP BP 04/15/22 11:00 36.7 C 110 H 16 125/76 04/15/22 07:00 36.4 C L 126 H 21 107/75 04/15/22 06:59 102 H Pulse Ox 04/15/22 11:00 95 04/15/22 07:00 94 04/15/22 06:59 Laboratory Results Laboratory Results - last 24 hr 04/15/22 04/15/22 04/15/22 06:39 06:39 06:46 WBC 8.22 RBC 4.46 L Hgb 13.9 L Hct 41.5 L MCV 93.0 MCH 31.2 MCHC 33.5 RDW Std Deviation 51.4 H RDW Coeff of Reilly 15.1 H Plt Count 623 H MPV 9.9 Immature Gran % (Auto) 0.5 Neut % (Auto) 81.1 Lymph % (Auto) 12.7 Harvey % (Auto) 5.1 Eos % (Auto) 0.4 Baso % (Auto) 0.2 Neut # (Auto) 6.67 H Lymph # (Auto) 1.04 L Harvey # (Auto) 0.42 Eos # (Auto) 0.03 Baso # (Auto) 0.02 Immature Gran # (Auto) 0.04 H PT INR APTT PTT Ratio Sodium 136 Cancelled Potassium 4.9 Cancelled Chloride 103 Cancelled Carbon Dioxide 20 L Cancelled Anion Gap 13 H Cancelled BUN 46 H Cancelled Creatinine 2.56 H D Cancelled Est Cr Clr Drug Dosing 20.2 Cancelled Est GFR ( Amer) 24.7 Cancelled Est GFR (Non-Af Amer) 21.3 Cancelled BUN/Creatinine Ratio 18.0 Cancelled Glucose 185 H Cancelled Calcium 10.5 H Cancelled Total Bilirubin 0.6 Cancelled AST 48 H Cancelled ALT 56 H Cancelled Alkaline Phosphatase 152 H Cancelled Total Protein 7.9 Cancelled Albumin 4.0 Cancelled Globulin 3.9 Cancelled Albumin/Globulin Ratio 1.0 Cancelled 04/15/22 15:40 WBC RBC Hgb Hct MCV MCH MCHC RDW Std Deviation RDW Coeff of Reilly Plt Count MPV Immature Gran % (Auto) Neut % (Auto) Lymph % (Auto) Harvey % (Auto) Eos % (Auto) Baso % (Auto) Neut # (Auto) Lymph # (Auto) Harvey # (Auto) Eos # (Auto) Baso # (Auto) Immature Gran # (Auto) PT Pending INR Pending APTT Pending PTT Ratio Pending Sodium Potassium Chloride Carbon Dioxide Anion Gap BUN Creatinine Est Cr Clr Drug Dosing Est GFR ( Amer) Est GFR (Non-Af Amer) BUN/Creatinine Ratio Glucose Calcium Total Bilirubin AST ALT Alkaline Phosphatase Total Protein Albumin Globulin Albumin/Globulin Ratio PG Care Time/CCT Total # of Minutes Spent Total Time Spent with Patient: Total time spent is greater than 50% in coordination of care (as documented) at patient's floor/unit and/or counseling patient: Coding Level of Care Code 58164 Subseq Hosp Care Lvl 3 Diagnoses Perforated bowel K63.1 Colonic stricture K56.699 Acute renal failure N17.9 Acute blood loss anemia D62 Hypertension I10 Hypertension type: essential hypertension Atrial flutter I48.3 Atrial flutter type: typical Depression F32.9 Dementia F03.90 Dementia behavioral disturbance: without behavioral disturbance Dementia type: unspecified type Delirium R41.0 DVT (deep venous thrombosis) I82.409 (1) Hypertension Hypertension type: essential hypertension Qualified Code(s): I10 - Essential (primary) hypertension (2) Atrial flutter Atrial flutter type: typical Qualified Code(s): I48.3 - Typical atrial flutter (3) Dementia Dementia behavioral disturbance: without behavioral disturbance Dementia type: unspecified type Qualified Code(s): F03.90 - Unspecified dementia without behavioral disturbance
[2022-04-15] MEDS ORDERED: Heparin IV Adult Wt-Based Standard WITH Bolus Protocol IV SCH (15:58)
[2022-04-15] MEDS ORDERED: Heparin IV Adult Wt-Based Standard WITH Bolus Protocol IV STA (16:05)
[2022-04-15] MEDS ORDERED: HEPARIN SOD (PORCINE) 1000 UNIT/ML IV ONE ×3 (16:13→16:21)
[2022-04-15] MEDS ORDERED: HEPARIN IV BOLUS 4,000 UNITS in SYRINGE 0 ML IV ONE (16:15)
[2022-04-15] MEDS ORDERED: HEPARIN SODIUM/DEXTROSE 25,000 UNITS/500 ML BAG IV SCH ×2 (16:30)
[2022-04-15 16:39] LABS: INR 1.1 (0.9-1.1); Partial Thromboplastin Time 28.5 Seconds (21.0-31.0)
[2022-04-15] MEDS: HEPARIN SODIUM/DEXTROSE 25,000 UNITS/500 ML BAG IV SCH (16:45)
[2022-04-15] MEDS ORDERED: LACTATED RINGER'S 1,000 ML IV ONE ×2 (17:17→17:31)
--- NOTE | 2022-04-15 17:25 | Nephrology Progress Note ---
Date of Service April 15, 2022 Assessment & Plan (1) Acute renal failure: Plan: Oliguric VIMAL. Intravascularly depleted. Renal US from April 09 reviewed. Lozoya placement requested for I/O's and to help r/o obstruction. Fluid challenge now to encourage urine output. Possible superimposed ATN in setting of suspected PE. LR x 1 L infused over 2 hours. Then, LR @ 125 ml/hr. Document strict I/O's. Repeat metabolic profile tomorrow AM. Potential future indications for dialysis discussed with family this afternoon. No emergent indication at this time. Medications appropriately dosed for kidney dysfunction. Admission and Anticipated Discharge Date Admission Date: March 26, 2022 Chevy Betancourt was seen and evaluated this afternoon his daughter and son-in-law at the bedside. I was contacted by the primary service earlier today regarding worsening kidney function. Serafin's history was reviewed with Dr. Campa. ROS limited due to mental status. Serafin was very lethargic during my assessment. Appetite has been decreased but PO intake reasonable with assistance from RN. He is oliguric. Urine output notably reduced over past 24 hours. IV LR infusing. Heparin gtt started. Review of Systems Review of Systems: Unobtainable due to cognitive status Physical Exam Constitutional: + cachectic and + frail appearing; no acute distress Eyes: + anicteric sclerae; no corneal abnormality ENMT: Mouth: + dry oral mucous membranes Neck: normal visual inspection and trachea midline Respiratory: normal respiratory effort Cardiovascular: Rate/Rhythm: + tachycardic Extremities: no edema Musculoskeletal: Extremities: no cyanosis and no clubbing Skin: + turgor decreased; no jaundice Neurologic: Motor/Sensory: no tremor and no asterixis Psychiatric: Orientation: alert and oriented x 3 Results & Data ([facility]) Vital Signs (Past 12 Hours) Vital Signs Temp Pulse Pulse Pulse Resp BP BP 04/15/22 15:00 36.3 C L 118 H 18 139/80 04/15/22 11:00 36.7 C 110 H 16 125/76 04/15/22 07:00 36.4 C L 126 H 21 107/75 04/15/22 06:59 102 H Pulse Ox 04/15/22 15:00 95 04/15/22 11:00 95 04/15/22 07:00 94 04/15/22 06:59 Laboratory Results Laboratory Results - last 24 hr 04/15/22 04/15/22 04/15/22 06:39 06:39 06:46 WBC 8.22 RBC 4.46 L Hgb 13.9 L Hct 41.5 L MCV 93.0 MCH 31.2 MCHC 33.5 RDW Std Deviation 51.4 H RDW Coeff of Reilly 15.1 H Plt Count 623 H MPV 9.9 Immature Gran % (Auto) 0.5 Neut % (Auto) 81.1 Lymph % (Auto) 12.7 [place] % (Auto) 5.1 Eos % (Auto) 0.4 Baso % (Auto) 0.2 Neut # (Auto) 6.67 H Lymph # (Auto) 1.04 L [place]inger # (Auto) 0.42 Eos # (Auto) 0.03 Baso # (Auto) 0.02 Immature Gran # (Auto) 0.04 H PT INR APTT PTT Ratio Sodium 136 Cancelled Potassium 4.9 Cancelled Chloride 103 Cancelled Carbon Dioxide 20 L Cancelled Anion Gap 13 H Cancelled BUN 46 H Cancelled Creatinine 2.56 H D Cancelled Est Cr Clr Drug Dosing 20.2 Cancelled Est GFR ( Amer) 24.7 Cancelled Est GFR (Non-Af Amer) 21.3 Cancelled BUN/Creatinine Ratio 18.0 Cancelled Glucose 185 H Cancelled Calcium 10.5 H Cancelled Total Bilirubin 0.6 Cancelled AST 48 H Cancelled ALT 56 H Cancelled Alkaline Phosphatase 152 H Cancelled Total Protein 7.9 Cancelled Albumin 4.0 Cancelled Globulin 3.9 Cancelled Albumin/Globulin Ratio 1.0 Cancelled 04/15/22 15:40 WBC RBC Hgb Hct MCV MCH MCHC RDW Std Deviation RDW Coeff of Reilly Plt Count MPV Immature Gran % (Auto) Neut % (Auto) Lymph % (Auto) [place] % (Auto) Eos % (Auto) Baso % (Auto) Neut # (Auto) Lymph # (Auto) [place]inger # (Auto) Eos # (Auto) Baso # (Auto) Immature Gran # (Auto) PT 12.0 INR 1.1 APTT 28.5 PTT Ratio 1.0 Sodium Potassium Chloride Carbon Dioxide Anion Gap BUN Creatinine Est Cr Clr Drug Dosing Est GFR ( Amer) Est GFR (Non-Af Amer) BUN/Creatinine Ratio Glucose Calcium Total Bilirubin AST ALT Alkaline Phosphatase Total Protein Albumin Globulin Albumin/Globulin Ratio PG Care Time/CCT Total # of Minutes Spent Total Time Spent with Patient: Total time spent is greater than 50% in coordination of care (as documented) at patient's floor/unit and/or counseling patient: Coding Level of Care Code 25930 Subseq Hosp Care Lvl 3 Diagnoses Acute renal failure N17.9
[2022-04-15] MEDS: LACTATED RINGER'S 1,000 ML IV SCH (19:09)
[2022-04-15] MEDS ORDERED: APIXABAN 5 MG TABLET PO SCH (21:00)
[2022-04-15] MEDS: MELATONIN 3 MG TAB PO SCH (22:11)
--- NOTE | 2022-04-15 22:54 | Electrocardiogram Report ---
Test Reason : Blood Pressure : / mmHG Vent. Rate : 120 BPM Atrial Rate : 120 BPM P-R Int : 144 ms QRS Dur : 120 ms QT Int : 342 ms P-R-T Axes : 054 -82 070 degrees QTc Int : 483 ms Sinus tachycardia Possible Left atrial enlargement Right bundle branch block Left anterior fascicular block Bifascicular block Left ventricular hypertrophy Abnormal ECG When compared with ECG of 03-APR-2022 15:15, Premature ventricular complexes are no longer Present T wave amplitude has increased in Inferior leads Confirmed by Fritz Lawrence ([id number]) on 04/15/2022 10:53:33 PM Referred By: Honorio Castro Confirmed By:Fritz Lawrence
[2022-04-15 23:29] LABS: Partial Thromboplastin Ratio 3.5
[2022-04-15 23:32] LABS: Partial Thromboplastin Time 94.9 Seconds (21.0-31.0)
[2022-04-16] MEDS: LACTATED RINGER'S 1,000 ML IV SCH ×3 (02:54→18:38)
[2022-04-16] MEDS ORDERED: ACETAMINOPHEN 1000 MG/100 ML IV IV PRN (04:06)
--- NOTE | 2022-04-16 04:06 | Communication Note ---
Date of Service: April 16, 2022 notified by nursing of abdominal pain. ordering iv tylenol Day hospitalist: Please address goals of care and code status with patient. Per nursing, patient expressed interest multiple times in not having further intervention.
[2022-04-16] MEDS: ONDANSETRON INJ 2 MG/ML 2 ML VIAL IV PRN (04:16)
--- NOTE | 2022-04-16 07:20 | Surgery Progress Note ---
Date of Service April 16, 2022 Assessment & Plan (1) DVT (deep venous thrombosis): Plan: suspect PE. KUB yesterday looks good. continues good GI funtion. RN worried about aspirating...will consult speech/swallowing to eval. keep npo until seen by them appreciate nephrology input. will allow them to manage fluids. ? PE/renal failure contributing to nausea? continue IVF per nephrology AM labs pending. family updated yesterday..will call again today. (2) Acute renal failure: (3) History of intestinal surgery: Admission and Anticipated Discharge Date Admission Date: March 26, 2022 Subjective pt seen. currently alert/oriented. per nursing some confusion and emesis x 2 overnight. stoma still functioning nicely. Physical Exam Physical Exam: alert. nad mm's dry abd: soft. non-distended. stoma with good output. incisions look good. Results & Data ([facility]) Vital Signs (Past 12 Hours) Vital Signs Temp Pulse Pulse Pulse Resp BP Pulse Ox 04/16/22 07:09 122 H 04/16/22 06:57 36.9 C 120 H 20 164/92 H 94 04/16/22 03:44 36.7 C 119 H 18 159/91 H 93 04/15/22 23:04 117 H 04/15/22 19:49 36.3 C L 108 H 24 143/84 H 93 PG Care Time/CCT Total # of Minutes Spent Total Time Spent with Patient: Total time spent is greater than 50% in coordination of care (as documented) at patient's floor/unit and/or counseling patient: Coding Level of Care Code None Diagnoses DVT (deep venous thrombosis) I82.409 Acute renal failure N17.9 History of intestinal surgery Z98.890
[2022-04-16 08:02] LABS: Basophils # (auto) 0.02 K/uL (0-0.2); Basophils % (auto) 0.2 %; Eosinophils # (auto) 0.01 K/uL (0-0.50); Eosinophils % (auto) 0.1 %; Hematocrit (blood only) 38.4 % (40.1-51.0); Hemoglobin 12.8 g/dl (14.0-18.0); Immature Granulocytes # (auto) 0.04 K/uL (0.00-0.02); Immature Granulocytes % (auto) 0.4 %; Lymphocytes # (auto) 0.82 K/uL (1.2-3.4); Lymphocytes % (auto) 7.3 %; Mean Corpuscular Hgb Conc 33.3 g/dL (32.0-36.0); Mean Platelet Volume 10.2 fL (9.4-12.4); Monocytes # (auto) 0.56 K/uL (0.24-0.82); Neutrophils # (auto) 9.73 K/uL (1.4-6.5); Platelet Count 579 K/uL (130-400); RDW Coefficient of Variation 14.8 % (11.5-14.5); Red Blood Count 4.13 M/uL (4.63-6.08); White Blood Count 11.18 K/ul (4.8-10.8)
[2022-04-16 08:20] LABS: BUN Creatinine Ratio 15.1 (10-20); Calcium 9.7 mg/dl (8.5-10.1); Creatinine Clr Calc Pharmacy 12.6 ml/min; Est GFR (Non-African American) 12.1 ml/min; Potassium 4.6 mmol/L (3.5-5.1)
[2022-04-16 08:23] LABS: INR 1.2 (0.9-1.1); Partial Thromboplastin Ratio 2.2; Prothrombin Time 12.9 Seconds (9.0-12.0)
[2022-04-16 08:25] LABS: Partial Thromboplastin Time 60.1 Seconds (21.0-31.0)
--- NOTE | 2022-04-16 09:50 | CT Scan Report ---
CT OF THE ABDOMEN AND PELVIS WITHOUT CONTRAST CLINICAL HISTORY: Leukocytosis, emesis post op bowel resection. COMPARISON STUDY: CT of the abdomen and pelvis 03/29/2022. KUB April 15, 2022. TECHNIQUE: Axial images of the abdomen and pelvis were obtained without IV contrast. Images were revi ewed in the axial, sagittal, and coronal planes. Automated exposure control was utilized for the leah dy. A dose lowering technique was utilized adhering to the principles of ALARA. FINDINGS: Trace left pleural effusion is noted. Bilateral lower lobe bronchial wall thickening with m ultifocal mucus plugging is noted. There are mild tree-in-bud nodular opacities within the lower lobe s. No pneumatosis, free air or portal venous gas is present. Evaluation of the abdomen and pelvis is sub optimal on this unenhanced examination. Postoperative findings within the anterior abdominal wall are noted. Subcutaneous gas within the laparotomy is noted. There is trace associated fluid. There is no drainable fluid collection. No definite evidence for an abscess. Interval diverting right lower quad rant ileostomy is noted. Sigmoid anastomosis is noted. No intra-abdominal fluid collection is present . There is mild presacral stranding. Stranding within the operative bed is likely postsurgical. There is no evidence for a bowel obstruction. Unenhanced images of the liver, spleen, adrenal glands, kidn eys and pancreas are normal. There is no biliary or pancreatic ductal dilatation. No hydronephrosis i s present. Prostate is enlarged, measuring 5.6 cm in transverse dimension. Lozoya balloon and gas with in the bladder present. IMPRESSION: 1. Status post sigmoid resection with anastomosis and diverting right lower quadrant ileostomy. No preston wel obstruction. No fluid collection to suggest abscess. 2. Postoperative findings within the anterior abdominal wall. Subcutaneous gas within the laparotomy. Etiology for gas not entirely clear on this exam but could be due to an open wound. Underlying fistu la is considered less likely but would be difficult to completely exclude. This can be assessed on fo llow-up exams. No drainable fluid collection. 3. Enlarged prostate. Lozoya balloon and gas within the bladder. No hydronephrosis. 4. Trace left pleural effusion. Mild bilateral lower lobe airspace opacities with bronchial wall thic kening and mild mucus plugging. ACT 112: Negative or not required by law. Electronically signed by: Donny Hu M.D. 04/16/2022 9:49 AM
--- NOTE | 2022-04-16 10:31 | Nephrology Progress Note ---
Date of Service April 16, 2022 Assessment & Plan (1) Acute renal failure: Plan: Oliguric VIMAL. No signs of recovery. Tolerated intravascular expansion overnight. BP acceptable. JVP increasing and I would monitor for developing signs of right heart failure in setting of PE. Clinical presentation consistent with ATN superimposed on advanced CKD. Urine studies requested this AM. Unfortunately prognosis is guarded. mIVF with LR infusing at 125 ml/hr while NPO. CT abdomen pending. No emergent indication for dialysis. Based on my conversation with family yesterday evening, I would not advise dialysis if needed. I would suggest palliative care consultation prior to considering any renal replacement therapy. Document strict I/O's. Repeat metabolic profile this afternoon. Medications appropriately dosed for kidney dysfunction. Admission and Anticipated Discharge Date Admission Date: March 26, 2022 Subjective Mr. Desir was awake but confused this morning. He is oriented to self but not place or time. No fevers or chills. He denies chest pain. He denies palpitations. He reports mild pain in the left side of his abdomen. Serafin was evaluated with his RN at the bedside. He has tolerated aggressive IVF replacement overnight but remains oliguric. 50 ml overnight via Lozoya. Review of Systems Review of Systems: All systems reviewed & are unremarkable except as noted in HPI & below Physical Exam Constitutional: + cachectic and + frail appearing; no acute distress Eyes: + anicteric sclerae; no corneal abnormality ENMT: Mouth: + dry oral mucous membranes Neck: normal visual inspection and trachea midline Respiratory: normal respiratory effort Cardiovascular: Rate/Rhythm: + tachycardic (ectopy noted) Vessels: + JVD Extremities: no edema Musculoskeletal: Extremities: no cyanosis and no clubbing Skin: + turgor decreased; no jaundice Neurologic: Motor/Sensory: no tremor and no asterixis Psychiatric: Orientation: alert and oriented x 3 Results & Data ([facility]) Vital Signs (Past 12 Hours) Vital Signs Temp Pulse Pulse Pulse Resp BP Pulse Ox 04/16/22 07:09 122 H 04/16/22 06:57 36.9 C 120 H 20 164/92 H 94 04/16/22 03:44 36.7 C 119 H 18 159/91 H 93 04/15/22 23:04 117 H Laboratory Results Laboratory Results - last 24 hr 04/15/22 04/15/22 04/16/22 15:40 22:37 06:37 WBC RBC Hgb Hct MCV MCH MCHC RDW Std Deviation RDW Coeff of Reilly Plt Count MPV Immature Gran % (Auto) Neut % (Auto) Lymph % (Auto) [place] % (Auto) Eos % (Auto) Baso % (Auto) Neut # (Auto) Lymph # (Auto) [place] # (Auto) Eos # (Auto) Baso # (Auto) Immature Gran # (Auto) PT 12.0 INR 1.1 APTT 28.5 94.9 H* PTT Ratio 1.0 3.5 Sodium 134 L Potassium 4.6 Chloride 97 L Carbon Dioxide 21 Anion Gap 16 H BUN 62 H Creatinine 4.10 H D Est Cr Clr Drug Dosing 12.6 Est GFR ( Amer) 14.0 Est GFR (Non-Af Amer) 12.1 BUN/Creatinine Ratio 15.1 Glucose 185 H Calcium 9.7 04/16/22 04/16/22 06:37 06:37 WBC 11.18 H RBC 4.13 L Hgb 12.8 L Hct 38.4 L MCV 93.0 MCH 31.0 MCHC 33.3 RDW Std Deviation 51.0 H RDW Coeff of Reilly 14.8 H Plt Count 579 H MPV 10.2 Immature Gran % (Auto) 0.4 Neut % (Auto) 87.0 Lymph % (Auto) 7.3 [place] % (Auto) 5.0 Eos % (Auto) 0.1 Baso % (Auto) 0.2 Neut # (Auto) 9.73 H Lymph # (Auto) 0.82 L [place] # (Auto) 0.56 Eos # (Auto) 0.01 Baso # (Auto) 0.02 Immature Gran # (Auto) 0.04 H PT 12.9 H INR 1.2 H APTT 60.1 H* PTT Ratio 2.2 Sodium Potassium Chloride Carbon Dioxide Anion Gap BUN Creatinine Est Cr Clr Drug Dosing Est GFR ( Amer) Est GFR (Non-Af Amer) BUN/Creatinine Ratio Glucose Calcium PG Care Time/CCT Total # of Minutes Spent Total Time Spent with Patient: Total time spent is greater than 50% in coordination of care (as documented) at patient's floor/unit and/or counseling patient: Coding Level of Care Code 33196 Subseq Hosp Care Lvl 3 Diagnoses Acute renal failure N17.9
[2022-04-16 11:45] LABS: Appearance Urine Cloudy (Clear); Bacteria Urine Automated Negative (Negative); Bilirubin Urine Negative (Negative); Blood Urine 3+ (Negative); Color Urine Yellow; Epithelial Cell Urine Auto >30 /lpf (0-5); Glucose Urine UA Negative (Negative); Ketones Urine Trace (Negative); Leukocyte Esterase Urine 1+ (Negative); Nitrite Urine Negative (Negative); Protein Urine 1+ (Negative); Specific Gravity Urine 1.023 (1.000-1.030); Urobilinogen Urine Negative (Negative)
[2022-04-16 12:18] LABS: RBC Urine Automated >30 /hpf (0-4)
[2022-04-16] MEDS: METOPROLOL TARTRATE 50 MG TAB PO SCH ×2 (12:38→23:03)
[2022-04-16] MEDS: FAMOTIDINE 20 MG TAB PO SCH (12:38)
--- NOTE | 2022-04-16 13:56 | Hospitalist Progress Note ---
Date of Service April 16, 2022 Assessment & Plan (1) DVT (deep venous thrombosis): Plan: New event, acute DVT, likely PEIV heparin for now; later consider DOAC (2) Acute renal failure: Plan: -Oliguric, nephrology following, note noted and appreciated (3) Perforated bowel: Plan: S/p 03/29 for exp lap converted to oral laparotomy with repair of perforation and diverting ileostomy - VONNIE drains have been removed by surgery. -Ileostomy function is now normal. Was on PPN for several days postoperatively due to ileus. Diet has been advanced per surgery and drains removed. 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 Castro on 03/26/2022 with interval development of perforated bowel on 03/29 (5) Hypertension: Plan: - Lisinopril and hydrochlorothiazide now on hold due to acute kidney injury. Metoprolol dosage uptitrated April 12-no change at present (6) Atrial flutter: Plan: - Patient has a history of atrial flutter managed by Dr. Flores at [facility] cardiology. On metoprolol; currently on IV heparin though at baseline he is on Eliquis 2.5 (7) Depression: Plan: - Continue Celexa (8) Delirium: Plan: No change; continue current Zyprexa Plan: Leukocytosis noted, CT chest noted -added chest PT; hold off antibiotics but low threshold to start for possible HAP; in anticipation, nasal MRSA ordered Dr. Castro has discussed goals of care with family which is appropriate; currently they plan to continue current therapy and reevaluate as the course merits Admission and Anticipated Discharge Date Admission Date: March 26, 2022 Subjective Follow-up for general medical management, AKA, agitation-neuro recent event, acute DVT; appears confused Physical Exam Physical Exam: Constitutional and general: sedate ; looks biologic age Head and face: No puffiness, atraumatic Eyes: No scleral icterus, extraocular movements normal Neck: Supple, no JVD Musculoskeletal: No acute joint swelling, no bony abnormalities Skin/dermatologic/integument: No rash, no purpura Hematologic and lymphatic: pallor mild, no petechia Gastrointestinal/abdomen: Nondistended, soft, nonacute Neurologic: Cranial nerves intact, nonfocal Cardiovascular: Heart rhythm regular, no rub, SSM, no gallop, tachycardic Respiratory: Chest movements equal, no use of accessory muscles, no adventitious sounds Results & Data Results & Data ([facility]) Vital Signs (Past 12 Hours) Vital Signs Temp Pulse Pulse Pulse Resp BP BP 04/16/22 11:18 37.4 C 124 H 22 158/74 H 04/16/22 07:09 122 H 04/16/22 06:57 36.9 C 120 H 20 164/92 H 04/16/22 03:44 36.7 C 119 H 18 159/91 H Pulse Ox 04/16/22 11:18 94 04/16/22 07:09 04/16/22 06:57 94 04/16/22 03:44 93 Laboratory Results Laboratory Results - last 24 hr 04/15/22 04/15/22 04/16/22 15:40 22:37 06:37 WBC RBC Hgb Hct MCV MCH MCHC RDW Std Deviation RDW Coeff of Reilly Plt Count MPV Immature Gran % (Auto) Neut % (Auto) Lymph % (Auto) [place] % (Auto) Eos % (Auto) Baso % (Auto) Neut # (Auto) Lymph # (Auto) [place] # (Auto) Eos # (Auto) Baso # (Auto) Immature Gran # (Auto) PT 12.0 INR 1.1 APTT 28.5 94.9 H* PTT Ratio 1.0 3.5 Sodium 134 L Potassium 4.6 Chloride 97 L Carbon Dioxide 21 Anion Gap 16 H BUN 62 H Creatinine 4.10 H D Est Cr Clr Drug Dosing 12.6 Est GFR ( Amer) 14.0 Est GFR (Non-Af Amer) 12.1 BUN/Creatinine Ratio 15.1 Glucose 185 H Calcium 9.7 Total Creatine Kinase Urine Color Urine Appearance Urine pH Ur Specific [place] Urine Protein Urine Glucose (UA) Urine Ketones Urine Blood Urine Nitrite Urine Bilirubin Urine Urobilinogen Ur Leukocyte Esterase Urine WBC (Auto) Urine RBC (Auto) U Hyaline Cast (Auto) U Epithel Cells (Auto) Urine Bacteria (Auto) Granular Casts Urine Yeast Ur Random Sodium 04/16/22 04/16/22 04/16/22 06:37 06:37 06:37 WBC 11.18 H RBC 4.13 L Hgb 12.8 L Hct 38.4 L MCV 93.0 MCH 31.0 MCHC 33.3 RDW Std Deviation 51.0 H RDW Coeff of Reilly 14.8 H Plt Count 579 H MPV 10.2 Immature Gran % (Auto) 0.4 Neut % (Auto) 87.0 Lymph % (Auto) 7.3 [place] % (Auto) 5.0 Eos % (Auto) 0.1 Baso % (Auto) 0.2 Neut # (Auto) 9.73 H Lymph # (Auto) 0.82 L [place] # (Auto) 0.56 Eos # (Auto) 0.01 Baso # (Auto) 0.02 Immature Gran # (Auto) 0.04 H PT 12.9 H INR 1.2 H APTT 60.1 H* PTT Ratio 2.2 Sodium Potassium Chloride Carbon Dioxide Anion Gap BUN Creatinine Est Cr Clr Drug Dosing Est GFR ( Amer) Est GFR (Non-Af Amer) BUN/Creatinine Ratio Glucose Calcium Total Creatine Kinase 26 L Urine Color Urine Appearance Urine pH Ur Specific [place] Urine Protein Urine Glucose (UA) Urine Ketones Urine Blood Urine Nitrite Urine Bilirubin Urine Urobilinogen Ur Leukocyte Esterase Urine WBC (Auto) Urine RBC (Auto) U Hyaline Cast (Auto) U Epithel Cells (Auto) Urine Bacteria (Auto) Granular Casts Urine Yeast Ur Random Sodium 04/16/22 04/16/22 11:00 11:00 WBC RBC Hgb Hct MCV MCH MCHC RDW Std Deviation RDW Coeff of Reilly Plt Count MPV Immature Gran % (Auto) Neut % (Auto) Lymph % (Auto) [place] % (Auto) Eos % (Auto) Baso % (Auto) Neut # (Auto) Lymph # (Auto) [place] # (Auto) Eos # (Auto) Baso # (Auto) Immature Gran # (Auto) PT INR APTT PTT Ratio Sodium Potassium Chloride Carbon Dioxide Anion Gap BUN Creatinine Est Cr Clr Drug Dosing Est GFR ( Amer) Est GFR (Non-Af Amer) BUN/Creatinine Ratio Glucose Calcium Total Creatine Kinase Urine Color Yellow Urine Appearance Cloudy A Urine pH 5.0 Ur Specific [place] 1.023 Urine Protein 1+ H Urine Glucose (UA) Negative Urine Ketones Trace H Urine Blood 3+ H Urine Nitrite Negative Urine Bilirubin Negative Urine Urobilinogen Negative Ur Leukocyte Esterase 1+ H Urine WBC (Auto) 10-30 H Urine RBC (Auto) >30 H U Hyaline Cast (Auto) 10-30 H U Epithel Cells (Auto) >30 H Urine Bacteria (Auto) Negative Granular Casts 1-5 H Urine Yeast Not Reportable Ur Random Sodium 29 PG Care Time/CCT Total # of Minutes Spent Total Time Spent with Patient: Total time spent is greater than 50% in coordination of care (as documented) at patient's floor/unit and/or counseling patient: Coding Level of Care Code 98704 Subseq Hosp Care Lvl 2 Diagnoses DVT (deep venous thrombosis) I82.409 Perforated bowel K63.1 Colonic stricture K56.699 Acute renal failure N17.9 Hypertension I10 Hypertension type: essential hypertension Atrial flutter I48.3 Atrial flutter type: typical Depression F32.9 Delirium R41.0 (1) Atrial flutter Atrial flutter type: typical Qualified Code(s): I48.3 - Typical atrial flutter (2) Hypertension Hypertension type: essential hypertension Qualified Code(s): I10 - Essential (primary) hypertension
[2022-04-16] MEDS: HEPARIN SODIUM/DEXTROSE 25,000 UNITS/500 ML BAG IV SCH (13:59)
[2022-04-16] MEDS: MELATONIN 3 MG TAB PO SCH (23:03)
[2022-04-17] MEDS: LACTATED RINGER'S 1,000 ML IV SCH ×3 (02:06→17:38)
[2022-04-17 06:11] LABS: Basophils # (auto) 0.02 K/uL (0-0.2); Basophils % (auto) 0.2 %; Eosinophils # (auto) 0.02 K/uL (0-0.50); Eosinophils % (auto) 0.2 %; Hematocrit (blood only) 33.7 % (40.1-51.0); Hemoglobin 11.2 g/dl (14.0-18.0); Immature Granulocytes # (auto) 0.03 K/uL (0.00-0.02); Immature Granulocytes % (auto) 0.3 %; Lymphocytes % (auto) 10.6 %; Mean Corpuscular Hemoglobin 31.3 pg (25.0-34.0); Mean Corpuscular Hgb Conc 33.2 g/dL (32.0-36.0); Mean Corpuscular Volume 94.1 fL (80.0-100.0); Mean Platelet Volume 9.6 fL (9.4-12.4); Monocytes # (auto) 0.63 K/uL (0.24-0.82); Monocytes % (auto) 6.7 %; Neutrophils # (auto) 7.69 K/uL (1.4-6.5); Platelet Count 459 K/uL (130-400); RDW Coefficient of Variation 14.9 % (11.5-14.5); RDW Standard Deviation 51.3 fL (36.4-46.3); Red Blood Count 3.58 M/uL (4.63-6.08); White Blood Count 9.39 K/ul (4.8-10.8)
[2022-04-17 06:34] LABS: Calcium 9.1 mg/dl (8.5-10.1); Creatinine Clr Calc Pharmacy 16.4 ml/min; Est GFR (African American) 19.2 ml/min; Est GFR (Non-African American) 16.6 ml/min; Potassium 4.8 mmol/L (3.5-5.1)
[2022-04-17 06:46] LABS: Partial Thromboplastin Ratio 2.2
[2022-04-17 06:55] LABS: Partial Thromboplastin Time 61.8 Seconds (21.0-31.0)
--- NOTE | 2022-04-17 07:45 | Surgery Progress Note ---
Date of Service April 17, 2022 Assessment & Plan (1) History of intestinal surgery: Plan: Patient appears brighter this AM WBC back to 9 (11), Cr downtrending 3.1 (4.1), BUN 66 Patient is afebrile, HR 80s-100s, saturating well on room air Currently on heparin gtt for LLE DVT and presumed PE Lozoya catheter draining, urine output improving some Speech and swallow cleared patient for easy to chew diet. No further n/v. ostomy functioning CT a/p yesterday revealed no acute intrabdominal abnormalities Appreciate nephrology and hospitalists assistance with pt Continue ongoing supportive care, PT/OT as above. more alert today. kidney function improved. eating regular diet . denies nausea. hopefully he will continue to improve over the weekend. Dr. Block covering if any issues. (2) Acute renal failure: (3) DVT (deep venous thrombosis): Admission and Anticipated Discharge Date Admission Date: March 26, 2022 Subjective Patient is awake and pleasant. Says he feels "fair" this morning. He denies any pain, or further nausea/vomiting. Offers no other complaints. Physical Exam Physical Exam: awake, lying in bed Respiratory: normal respiratory effort on room air Gastrointestinal (Abdomen): Inspection/Auscultation: + abdominal surgical incision (midline wound healing well, raudel previously removed) Percussion /Palpation: abdomen soft; abdomen nontender ostomy with liquid stool in bag Results & Data ([facility]) Vital Signs (Past 12 Hours) Vital Signs Temp Pulse Pulse Resp BP Pulse Ox 04/17/22 03:00 36.7 C 87 18 132/73 92 04/16/22 23:36 106 H 04/16/22 22:57 36.6 C 106 H 18 139/75 91 PG Care Time/CCT Total # of Minutes Spent Total Time Spent with Patient: Total time spent is greater than 50% in coordination of care (as documented) at patient's floor/unit and/or counseling patient: Coding Level of Care Code None Diagnoses History of intestinal surgery Z98.890 Acute renal failure N17.9 DVT (deep venous thrombosis) I82.409
[2022-04-17] MEDS: FAMOTIDINE 20 MG TAB PO SCH (08:10)
[2022-04-17] MEDS: METOPROLOL TARTRATE 50 MG TAB PO SCH ×2 (08:11→20:37)
--- NOTE | 2022-04-17 10:37 | Nephrology Progress Note ---
Date of Service April 17, 2022 Assessment & Plan (1) Acute renal failure: Plan: Oliguric VIMAL with improvement noted in creatinine and urine output following additional intravascular expansion. BP acceptable. mIVF continued to encourage even to slightly positive fluid balance. PO intake remains poor. May require additional nutritional supplementation. Clinical presentation consistent with prerenal physiology and hemodynamically mediated ATN superimposed on advanced CKD. CT showed the kidneys to be unobstructed. Urine +WBC, +RBC, hyaline>granular casts. mIVF with LR infusing at 125 ml/hr while NPO. No emergent indication for dialysis. I discussed dialysis with family in additional detail yesterday and I would advise avoiding hemodialysis if kidney dysfunction progresses. Unfortunately, given multiple medical comorbidities and frailty, I would not expect HD treatment to provided significant benefit. I would suggest palliative care consultation prior to considering any renal replacement therapy. Document strict I/O's. Repeat metabolic profile this afternoon. Medications appropriately dosed for kidney dysfunction. (2) Perforated bowel: Plan: Sigmoidectomy 03/26 for stricture complicated by anastomotic perforation requiring emergent laparotomy with diverting ileostomy 03/29. Complicated by several inciting episodes of VIMAL, most recently hemodynamically mediated likely related to suspected PE (known DVT). Admission and Anticipated Discharge Date Admission Date: March 26, 2022 Subjective Mental status waxing and waning. Appetite poor. Ate a small amount with assistance from nurse. No aspiration noted. No pain reported. No fevers or chills. Very tired after breakfast. Serafin did not answer questions for me this morning. He remains very weak. Urine output improving. Review of Systems Review of Systems: All systems reviewed & are unremarkable except as noted in HPI & below Physical Exam Constitutional: + cachectic and + frail appearing; no acute distress Eyes: + anicteric sclerae; no corneal abnormality ENMT: Mouth: + dry oral mucous membranes Neck: normal visual inspection and trachea midline Respiratory: normal respiratory effort Cardiovascular: Rate/Rhythm: + tachycardic (ectopy noted) Vessels: + JVD Extremities: no edema Gastrointestinal (Abdomen): Inspection/Auscultation: + abdomen distended, normal bowel sounds and + abdominal surgical incision ileostomy with liquid stool in bag Musculoskeletal: Extremities: no cyanosis and no clubbing Skin: + turgor decreased; no jaundice Neurologic: Motor/Sensory: no tremor and no asterixis Psychiatric: Orientation: alert and oriented x 3 Results & Data ([facility]) Vital Signs (Past 12 Hours) Vital Signs Temp Pulse Pulse Resp BP BP Pulse Ox 04/17/22 08:22 99 H 04/17/22 07:36 36.5 C 101 H 18 121/63 92 04/17/22 03:00 36.7 C 87 18 132/73 92 04/16/22 23:36 106 H 04/16/22 22:57 36.6 C 106 H 18 139/75 91 Laboratory Results Laboratory Results - last 24 hr 04/16/22 04/16/22 04/16/22 06:37 11:00 11:00 WBC RBC Hgb Hct MCV MCH MCHC RDW Std Deviation RDW Coeff of Reilly Plt Count MPV Immature Gran % (Auto) Neut % (Auto) Lymph % (Auto) [place] % (Auto) Eos % (Auto) Baso % (Auto) Neut # (Auto) Lymph # (Auto) [place] # (Auto) Eos # (Auto) Baso # (Auto) Immature Gran # (Auto) APTT PTT Ratio Sodium Potassium Chloride Carbon Dioxide Anion Gap BUN Creatinine Est Cr Clr Drug Dosing Est GFR ( Amer) Est GFR (Non-Af Amer) BUN/Creatinine Ratio Glucose Calcium Total Creatine Kinase 26 L Urine Color Yellow Urine Appearance Cloudy A Urine pH 5.0 Ur Specific [place] 1.023 Urine Protein 1+ H Urine Glucose (UA) Negative Urine Ketones Trace H Urine Blood 3+ H Urine Nitrite Negative Urine Bilirubin Negative Urine Urobilinogen Negative Ur Leukocyte Esterase 1+ H Urine WBC (Auto) 10-30 H Urine RBC (Auto) >30 H U Hyaline Cast (Auto) 10-30 H U Epithel Cells (Auto) >30 H Urine Bacteria (Auto) Negative Granular Casts 1-5 H Urine Yeast Not Reportable Ur Random Sodium 29 Nasal Screen MRSA (PCR) 04/16/22 04/17/22 04/17/22 Unknown 05:47 05:47 WBC RBC Hgb Hct MCV MCH MCHC RDW Std Deviation RDW Coeff of Reilly Plt Count MPV Immature Gran % (Auto) Neut % (Auto) Lymph % (Auto) [place] % (Auto) Eos % (Auto) Baso % (Auto) Neut # (Auto) Lymph # (Auto) [place] # (Auto) Eos # (Auto) Baso # (Auto) Immature Gran # (Auto) APTT 61.8 H* PTT Ratio 2.2 Sodium 132 L Potassium 4.8 Chloride 100 Carbon Dioxide 23 Anion Gap 9 BUN 66 H Creatinine 3.15 H D Est Cr Clr Drug Dosing 16.4 Est GFR ( Amer) 19.2 Est GFR (Non-Af Amer) 16.6 BUN/Creatinine Ratio 21.0 H Glucose 143 H Calcium 9.1 Total Creatine Kinase Urine Color Urine Appearance Urine pH Ur Specific [place] Urine Protein Urine Glucose (UA) Urine Ketones Urine Blood Urine Nitrite Urine Bilirubin Urine Urobilinogen Ur Leukocyte Esterase Urine WBC (Auto) Urine RBC (Auto) U Hyaline Cast (Auto) U Epithel Cells (Auto) Urine Bacteria (Auto) Granular Casts Urine Yeast Ur Random Sodium Nasal Screen MRSA (PCR) Negative 04/17/22 05:47 WBC 9.39 RBC 3.58 L Hgb 11.2 L Hct 33.7 L MCV 94.1 MCH 31.3 MCHC 33.2 RDW Std Deviation 51.3 H RDW Coeff of Reilly 14.9 H Plt Count 459 H MPV 9.6 Immature Gran % (Auto) 0.3 Neut % (Auto) 82.0 Lymph % (Auto) 10.6 [place] % (Auto) 6.7 Eos % (Auto) 0.2 Baso % (Auto) 0.2 Neut # (Auto) 7.69 H Lymph # (Auto) 1.00 L [place] # (Auto) 0.63 Eos # (Auto) 0.02 Baso # (Auto) 0.02 Immature Gran # (Auto) 0.03 H APTT PTT Ratio Sodium Potassium Chloride Carbon Dioxide Anion Gap BUN Creatinine Est Cr Clr Drug Dosing Est GFR ( Amer) Est GFR (Non-Af Amer) BUN/Creatinine Ratio Glucose Calcium Total Creatine Kinase Urine Color Urine Appearance Urine pH Ur Specific [place] Urine Protein Urine Glucose (UA) Urine Ketones Urine Blood Urine Nitrite Urine Bilirubin Urine Urobilinogen Ur Leukocyte Esterase Urine WBC (Auto) Urine RBC (Auto) U Hyaline Cast (Auto) U Epithel Cells (Auto) Urine Bacteria (Auto) Granular Casts Urine Yeast Ur Random Sodium Nasal Screen MRSA (PCR) PG Care Time/CCT Total # of Minutes Spent Total Time Spent with Patient: Total time spent is greater than 50% in coordination of care (as documented) at patient's floor/unit and/or counseling patient: Coding Level of Care Code 32990 Subseq Hosp Care Lvl 3 Diagnoses Acute renal failure N17.9 Perforated bowel K63.1
[2022-04-17] MEDS: HEPARIN SODIUM/DEXTROSE 25,000 UNITS/500 ML BAG IV SCH (11:18)
--- NOTE | 2022-04-17 12:43 | Hospitalist Progress Note ---
Date of Service April 17, 2022 Assessment & Plan (1) DVT (deep venous thrombosis): Plan: New event, acute DVT, likely PE (was tachycardic); heparin for now; later consider DOAC as renal function improves (2) Acute renal failure: Plan: -Sudden decline in renal function likely related to #1 (PE)- volume, nephrology following, improved, conservative follow-up at present (3) Perforated bowel: Plan: S/p 03/29 for exp lap converted to oral laparotomy with repair of perforation and diverting ileostomy - VONNIE drains have been removed by surgery. -Ileostomy function is now normal. Was on PPN for several days postoperatively due to ileus. Diet has been advanced per surgery and drains removed. 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 Castro on 03/26/2022 with interval development of perforated bowel on 03/29 (5) Hypertension: Plan: - Lisinopril and hydrochlorothiazide now on hold due to acute kidney injury. Metoprolol dosage uptitrated April 12-no change at present (6) Atrial flutter: Plan: - Patient has a history of atrial flutter managed by Dr. Flores at [facility] cardiology. On metoprolol and Eliquis at baseline - (7) Depression: Plan: - Continue Celexa (8) Delirium: Plan: No change Admission and Anticipated Discharge Date Admission Date: March 26, 2022 Subjective Follow-up for general medical management, AKA, agitation-recent event, acute DVT and worsening renal function; this a.m. when seen, better urine output Physical Exam Physical Exam: Constitutional and general: sedate ; looks biologic age Head and face: No puffiness, atraumatic Eyes: No scleral icterus, extraocular movements normal Neck: Supple, no JVD Musculoskeletal: No acute joint swelling, no bony abnormalities Skin/dermatologic/integument: No rash, no purpura Hematologic and lymphatic: pallor mild, no petechia Gastrointestinal/abdomen: Nondistended, soft, nonacute Neurologic: Cranial nerves intact, nonfocal Cardiovascular: Heart rhythm regular, no rub, SSM, no gallop, tachycardic Respiratory: Chest movements equal, no use of accessory muscles, no adventitious sounds Results & Data Results & Data ([facility]) Vital Signs (Past 12 Hours) Vital Signs Temp Pulse Pulse Resp BP BP Pulse Ox 04/17/22 11:25 36.8 C 86 18 112/68 91 04/17/22 08:22 99 H 04/17/22 07:36 36.5 C 101 H 18 121/63 92 04/17/22 03:00 36.7 C 87 18 132/73 92 Laboratory Results Laboratory Results - last 24 hr 04/16/22 04/17/22 04/17/22 Unknown 05:47 05:47 WBC RBC Hgb Hct MCV MCH MCHC RDW Std Deviation RDW Coeff of Reilly Plt Count MPV Immature Gran % (Auto) Neut % (Auto) Lymph % (Auto) [place] % (Auto) Eos % (Auto) Baso % (Auto) Neut # (Auto) Lymph # (Auto) [place] # (Auto) Eos # (Auto) Baso # (Auto) Immature Gran # (Auto) APTT 61.8 H* PTT Ratio 2.2 Sodium 132 L Potassium 4.8 Chloride 100 Carbon Dioxide 23 Anion Gap 9 BUN 66 H Creatinine 3.15 H D Est Cr Clr Drug Dosing 16.4 Est GFR ( Amer) 19.2 Est GFR (Non-Af Amer) 16.6 BUN/Creatinine Ratio 21.0 H Glucose 143 H Calcium 9.1 Nasal Screen MRSA (PCR) Negative 04/17/22 05:47 WBC 9.39 RBC 3.58 L Hgb 11.2 L Hct 33.7 L MCV 94.1 MCH 31.3 MCHC 33.2 RDW Std Deviation 51.3 H RDW Coeff of Reilly 14.9 H Plt Count 459 H MPV 9.6 Immature Gran % (Auto) 0.3 Neut % (Auto) 82.0 Lymph % (Auto) 10.6 [place] % (Auto) 6.7 Eos % (Auto) 0.2 Baso % (Auto) 0.2 Neut # (Auto) 7.69 H Lymph # (Auto) 1.00 L [place] # (Auto) 0.63 Eos # (Auto) 0.02 Baso # (Auto) 0.02 Immature Gran # (Auto) 0.03 H APTT PTT Ratio Sodium Potassium Chloride Carbon Dioxide Anion Gap BUN Creatinine Est Cr Clr Drug Dosing Est GFR ( Amer) Est GFR (Non-Af Amer) BUN/Creatinine Ratio Glucose Calcium Nasal Screen MRSA (PCR) PG Care Time/CCT Total # of Minutes Spent Total Time Spent with Patient: Total time spent is greater than 50% in coordination of care (as documented) at patient's floor/unit and/or counseling patient: Coding Level of Care Code 84600 Subseq Hosp Care Lvl 3 Diagnoses DVT (deep venous thrombosis) I82.409 Acute renal failure N17.9 Perforated bowel K63.1 Colonic stricture K56.699 Hypertension I10 Hypertension type: essential hypertension Atrial flutter I48.3 Atrial flutter type: typical Depression F32.9 Delirium R41.0 (1) Hypertension Hypertension type: essential hypertension Qualified Code(s): I10 - Essential (primary) hypertension (2) Atrial flutter Atrial flutter type: typical Qualified Code(s): I48.3 - Typical atrial flutter
[2022-04-17] MEDS: ACETAMINOPHEN 325 MG TAB PO PRN (17:11)
[2022-04-17] MEDS: MELATONIN 3 MG TAB PO SCH (20:37)
[2022-04-18] MEDS: LACTATED RINGER'S 1,000 ML IV SCH ×3 (01:38→17:19)
--- NOTE | 2022-04-18 06:12 | Surgery Progress Note ---
Date of Service April 18, 2022 Assessment & Plan (1) Stricture of sigmoid colon: Plan: Patient is status post laparoscopic sigmoid colon resection secondary to stricture on 03/27/2022 Patient is status post exploratory laparoscopy/laparotomy with repair of anastomosis and creation of ileostomy on 03/29/2022 Patient has had issues with acute kidney injury since surgery which may be related to high ostomy output and poor oral intake Nephrology following. Continue IV fluid for volume expansion Check a.m. labs when available Patient has left lower extremity DVT and presumed PE. He is on a heparin drip for this problem. Can consider switching heparin drip to Eliquis if renal function continues to improve Encourage oral intake. Dietary department helping optimize nutritional status. Continue PT and OT secondary to deconditioning (rehab has been recommended) (2) DVT (deep venous thrombosis): (3) History of intestinal surgery: (4) Pneumoperitoneum: Admission and Anticipated Discharge Date Admission Date: March 26, 2022 Supervising Physician Co-Signing Physician Notes Dr. Blockpatient appears to be resting comfortably, no acute changes. Receiving some IV fluid for his renal function Appears to tolerate p.o. intake but diminished-encouraging supplements. Continues to need assistance when out of bed And will need extended carerehab versus nursing facility. IV heparin for now for DVT-would be okay to switch to p.o. Med from a surgical standpoint. Check a.m. labs Subjective Patient is resting in bed. He was sleeping at the time of my visit but arousable. He was slightly confused at the time of my exam but denied abdominal pain. He also denied shortness of breath and denied nausea or vomiting. Discussed with shift commander RN. She did not note any acute issues other than some yellowish nature from around patient's ileostomy site. She notes he is eating without difficulty but only eating about 20 to 25% of his meals. She also reports that he appeared weak/deconditioned when he attempted to stand at bedside with physical therapy yesterday. She also reports patient has considerable output from his ileostomy Physical Exam Gastrointestinal (Abdomen): Abdomen is soft and nonrigid. No distention is noted. Bowel sounds are present. Minimal pain with palpation. Patient's ostomy was examined and appeared pink and viable. Results & Data ([facility]) Vital Signs (Past 12 Hours) Vital Signs Temp Pulse Pulse Resp BP BP Pulse Ox 04/18/22 03:35 36.8 C 100 H 18 136/75 92 04/17/22 22:57 36.5 C 87 16 116/69 92 04/17/22 22:17 73 04/17/22 19:41 36.6 C 94 H 16 122/74 93 PG Care Time/CCT Total # of Minutes Spent Total Time Spent with Patient: Total time spent is greater than 50% in coordination of care (as documented) at patient's floor/unit and/or counseling patient: Coding Level of Care Code None Diagnoses Stricture of sigmoid colon K56.699 DVT (deep venous thrombosis) I82.409 History of intestinal surgery Z98.890 Pneumoperitoneum K66.8
[2022-04-18 06:21] LABS: Basophils # (auto) 0.02 K/uL (0-0.2); Basophils % (auto) 0.3 %; Eosinophils # (auto) 0.01 K/uL (0-0.50); Eosinophils % (auto) 0.2 %; Hematocrit (blood only) 32.1 % (40.1-51.0); Hemoglobin 10.6 g/dl (14.0-18.0); Immature Granulocytes # (auto) 0.04 K/uL (0.00-0.02); Immature Granulocytes % (auto) 0.6 %; Lymphocytes % (auto) 13.6 %; Mean Corpuscular Hemoglobin 30.8 pg (25.0-34.0); Mean Corpuscular Volume 93.3 fL (80.0-100.0); Mean Platelet Volume 9.5 fL (9.4-12.4); Monocytes # (auto) 0.49 K/uL (0.24-0.82); Monocytes % (auto) 7.4 %; Neutrophils # (auto) 5.14 K/uL (1.4-6.5); Neutrophils % (auto) 77.9 %; Platelet Count 354 K/uL (130-400); RDW Standard Deviation 50.9 fL (36.4-46.3); Red Blood Count 3.44 M/uL (4.63-6.08)
[2022-04-18 06:43] LABS: Calcium 9.1 mg/dl (8.5-10.1); Creatinine Clr Calc Pharmacy 23.7 ml/min; Est GFR (Non-African American) 25.9 ml/min; Potassium 4.1 mmol/L (3.5-5.1)
[2022-04-18 07:15] LABS: Partial Thromboplastin Ratio 2.1; Partial Thromboplastin Time 58.1 Seconds (21.0-31.0)
[2022-04-18] MEDS: METOPROLOL TARTRATE 50 MG TAB PO SCH ×2 (08:12→20:23)
[2022-04-18] MEDS: FAMOTIDINE 20 MG TAB PO SCH (08:13)
[2022-04-18] MEDS: ACETAMINOPHEN 325 MG TAB PO PRN ×2 (08:19→20:22)
[2022-04-18] MEDS: HEPARIN SODIUM/DEXTROSE 25,000 UNITS/500 ML BAG IV SCH (08:22)
[2022-04-18] MEDS: ONDANSETRON INJ 2 MG/ML 2 ML VIAL IV PRN (08:57)
--- NOTE | 2022-04-18 09:02 | Nephrology Progress Note ---
Date of Service April 18, 2022 Assessment & Plan (1) Acute renal failure: Plan: * VIMAL - likely hemodynamically medicated ATN. Now in the recovery phase. Patient is nonoliguric. Cr improved to 2.2 (baseline 1.2) * Volume status and electrolyte balance are acceptable. No acute indication for HD this am * Will reduce IVF to 80 cc/hr (net 8L vol +) * Monitor PRP (2) Anastomotic leak of intestine: Plan: * Sigmoidectomy 03/26 for stricture complicated by anastomotic leak requiring emergent laparotomy with diverting ileostomy 03/29. (3) DVT (deep venous thrombosis): Plan: * Currently on heparin gtt Admission and Anticipated Discharge Date Admission Date: March 26, 2022 Subjective Mr. Desir was evaluated in his hospital room. He was alert and oriented to self. He appears weak but able to follow one step commands. He voiced no medical concerns. Review of Systems Constitutional: + weakness; no fever Eyes: no problem reported Ear, Nose, Mouth, Throat: no problem reported Respiratory: no cough and no dyspnea Cardiovascular: no chest pain, no palpitations and no edema Gastrointestinal: no abdominal pain Physical Exam Constitutional: + frail appearing Eyes: PERRL, conjunctivae normal, anicteric sclerae ENMT: external ear and nose normal, oropharynx normal Neck: trachea midline, no thyromegaly Respiratory: normal respiratory effort, lungs clear to auscultation Cardiovascular: RRR, no murmur, no edema Gastrointestinal (Abdomen): Inspection/Auscultation: normal bowel sounds Percussion/Palpation: abdomen soft; abdomen nontender Skin: no rashes, warm and dry Neurologic: awake Results & Data ([facility]) Vital Signs (Past 12 Hours) Vital Signs Temp Pulse Pulse Resp BP Pulse Ox 04/18/22 07:26 99 H 04/18/22 07:08 36.9 C 100 H 19 130/74 93 04/18/22 03:35 36.8 C 100 H 18 136/75 92 04/17/22 22:57 36.5 C 87 16 116/69 92 04/17/22 22:17 73 Laboratory Results Laboratory Tests 04/05/22 04/15/22 04/16/22 05:17 06:39 06:37 WBC Hgb Hct Plt Count Sodium Potassium Chloride Carbon Dioxide BUN Creatinine 1.12 4.10 H D Glucose Albumin 4.0 04/17/22 04/18/22 04/18/22 05:47 06:06 06:06 WBC 6.60 Hgb 10.6 L Hct 32.1 L Plt Count 354 Sodium 134 L Potassium 4.1 Chloride 101 Carbon Dioxide 25 BUN 48 H Creatinine 3.15 H D 2.18 H D Glucose 129 H Albumin PG Care Time/CCT Total # of Minutes Spent Total Time Spent with Patient: Total time spent is greater than 50% in coordination of care (as documented) at patient's floor/unit and/or counseling patient: Coding Level of Care Code 87232 Subseq Hosp Care Lvl 3 Diagnoses Acute renal failure N17.9 Anastomotic leak of intestine K91.89 DVT (deep venous thrombosis) I82.409
--- NOTE | 2022-04-18 13:04 | Hospitalist Progress Note ---
Date of Service April 18, 2022 Assessment & Plan (1) DVT (deep venous thrombosis): Plan: New event, acute DVT, likely PE (was tachycardic); heparin for now; later consider DOAC as renal function improves and it is clear that there will be no surgical intervention (2) Acute renal failure: Plan: Sudden decline in renal function likely related to #1 (PE)- volume, nephrology following, improved, conservative follow-up at present Patient had been on lactated Ringer's at 125 mL/h. We will decrease this to 80 mL/h and follow serial labs Nephrology consulted and following. Appreciate their input (3) Perforated bowel: Plan: S/p 03/29 for exp lap converted to oral laparotomy with repair of perforation and diverting ileostomy - VONNIE drains have been removed by surgery. -Ileostomy function is now normal. Was on PPN for several days postoperatively due to ileus. Diet has been advanced per surgery and drains removed. 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 Castro on 03/26/2022 with interval development of perforated bowel on 03/29 (5) Hypertension: Plan: - Lisinopril and hydrochlorothiazide now on hold due to acute kidney injury. Metoprolol dosage uptitrated April 12 Continue with vital signs per protocol (6) Atrial flutter: Plan: Patient has a history of atrial flutter managed by Dr. Flores at [facility] cardiology. On metoprolol and Eliquis at baseline Eliquis on hold. Patient is currently on heparin drip for DVTs and probable pulmonary emboli (7) Depression: Plan: Continue Celexa (8) Delirium: Plan: No change Unsure of baseline. (9) Oral candidiasis: Plan: Identified on physical examination 04/18/2022 Patient started on nystatin swish and swallow Continue to follow clinically Admission and Anticipated Discharge Date Admission Date: March 26, 2022 Subjective Attending: Dr. Fredy Masters This is an 89-year-old male that presented with anastomotic leak. He was taken the operating room and initially had a laparoscopic procedure. This was converted to a open procedure. Patient currently being followed by general surgery. Colostomy with formed stool as well as liquid discharge. No evidence of blood in the colostomy bag. Area immediately around the colostomy is nontender. Patient does report tenderness in the right upper quadrant and left upper quadrant. No tenderness to light palpation but there is tenderness to deep palpation. Bowel sounds are present. Patient reports 6 out of 10 pain. In discussion with nurse, patient had significant provement in pain with Tylenol this morning. Patient with some slowness in response. Hesitant to prescribe narcotics unless absolutely necessary. Patient denies fever, chills, shakes, rigors. No acute complaints other than abdominal pain at this time. Review of Systems Review of Systems: A total of 10 systems was reviewed and is negative other than as listed in the HPI Physical Exam Physical Exam: GENERAL : No acute distress EYES: No icterus, gaze conjugate NOSE: No evidence of epistaxis MOUTH: Examination of mouth reveals early candidiasis on right lateral aspect of tongue. Patient also reporting sore throat but this is unclear if this is related to esophageal candidiasis or status postextubation NECK: Supple LUNGS: CTA B/L, no wheezes, rales or rhonchi HEART: Regular, rate controlled ABDOMEN: Soft, NT, ND, BS Present some pain with palpation in the right upper quadrant and left upper quadrant EXTREMITIES: No LE edema, pedal pulses intact NEURO: A&OX3 Results & Data Results & Data ([facility]) Vital Signs (Past 12 Hours) Vital Signs Temp Pulse Pulse Resp BP Pulse Ox 04/18/22 11:00 36.3 C L 79 19 104/57 L 91 04/18/22 07:26 99 H 04/18/22 07:08 36.9 C 100 H 19 130/74 93 04/18/22 03:35 36.8 C 100 H 18 136/75 92 Critical Care Results & Data Vital Signs (Past 12 Hours) Vital Signs Temp Pulse Pulse Resp BP Pulse Ox 04/18/22 11:00 36.3 C L 79 19 104/57 L 91 04/18/22 07:26 99 H 04/18/22 07:08 36.9 C 100 H 19 130/74 93 04/18/22 03:35 36.8 C 100 H 18 136/75 92 Lab & Micro Results (Past 24 Hours) RBC 3.44 M/uL (4.63-6.08) L 04/18/22 WBC 6.60 K/ul (4.8-10.8) 04/18/22 Hgb 10.6 g/dl (14.0-18.0) L 04/18/22 Hct 32.1 % (40.1-51.0) L 04/18/22 MCV 93.3 fL (80.0-100.0) 04/18/22 MCH 30.8 pg (25.0-34.0) 04/18/22 MCHC 33.0 g/dL (32.0-36.0) 04/18/22 RDW Standard Deviation 50.9 fL (36.4-46.3) H 04/18/22 RDW Coefficient of Variation 15.0 % (11.5-14.5) H 04/18/22 Plt Count 354 K/uL (130-400) 04/18/22 MPV 9.5 fL (9.4-12.4) 04/18/22 Neutrophils (%) (Auto) 77.9 % 04/18/22 Lymphocytes (%) (Auto) 13.6 % 04/18/22 Monocytes # (Auto) 0.49 K/uL (0.24-0.82) 04/18/22 Eosinophils # (Auto) 0.01 K/uL (0-0.50) 04/18/22 Immature Granulocyte % (Auto) 0.6 % 04/18/22 Neutrophils # (Auto) 5.14 K/uL (1.4-6.5) 04/18/22 Lymphocytes # (Auto) 0.90 K/uL (1.2-3.4) L 04/18/22 Monocytes # (Auto) 0.49 K/uL (0.24-0.82) 04/18/22 Eosinophils # (Auto) 0.01 K/uL (0-0.50) 04/18/22 Basophils # (Auto) 0.02 K/uL (0-0.2) 04/18/22 Immature Granulocyte # (Auto) 0.04 K/uL (0.00-0.02) H 04/18/22 Na 134 mmol/L (136-145) L 04/18/22 K 4.1 mmol/L (3.5-5.1) 04/18/22 Cl 101 mmol/L (98-107) 04/18/22 CO2 25 mmol/L (21-32) 04/18/22 Anion Gap 8 (3-11) 04/18/22 BUN 48 mg/dl (6-23) H 04/18/22 Creatinine 2.18 mg/dl (0.6-1.4) H 04/18/22 Estimated GFR ( Amer) 30.0 ml/min 04/18/22 Estimated GFR (Non-Af Amer) 25.9 ml/min 04/18/22 BUN/Creatinine Ratio 22.0 (10-20) H 04/18/22 Glu 129 mg/dl (70-99(Fasting)) H 04/18/22 Ca 9.1 mg/dl (8.5-10.1) 04/18/22 Calcium Level 9.1 mg/dl (8.5-10.1) 04/18/22 06:06 04/18/22 Microbiology 04/16/22 11:00 Urine Culture - Final Urine,Clean Catch No growth - less than 1,000 colonies/mL. I & O Totals 24 Hours 04/17/22 04/18/22 04/19/22 06:59 06:59 06:59 Intake Total 3633.116 / 3633.116 3458.017 / 3734.017 1267.850 / 1267.850 Output Total 1750 / 1750 2900 / 2900 400 / 400 Balance 1883.116 / 1883.116 558.017 / 834.017 867.850 / 867.850 Cumulative 03/03/22 11:24 thru 04/18/22 09:43 Intake Total 73191.924 Output Total 06511 Balance 9366.924 RT Ventilator Mngmt (Last Documented) Ventilator Ordered Settings Ventilator Support Mode CPAP 03/30/22 07:40 Respiratory Rate 19 04/18/22 11:00 Ventilator Tidal Volume 450 03/30/22 07:15 Setting Minute Ventilation 8.4 03/30/22 07:40 Ventilator Positive Pressure 10 03/30/22 07:40 Support Setting Positive End Expiratory 5 03/30/22 07:40 Pressure Fraction of Inspired Oxygen 30 03/30/22 07:40 Machine Comment Placed on CPAP 03/30/22 07:40 Ventilator - PT Measurements Respiratory Rate 19 Exhaled Tidal Volume 622 Minute Ventilation 8.4 Peak Inspiratory Airway 16 Pressure Plateau Pressure 18 Respiratory Cycle Inspiratory: 1:3.3 Expiratory Ratio Inspiratory Phase Time 1.18 End-Tidal CO2 32 Static Lung Compliance 34.62 Dynamic Lung Compliance 56.55 Normal Static Lung Compliance 49.00 Patient Measurements Comment Patient extubated to 3L, SPO2 97% PG Care Time/CCT Total # of Minutes Spent Total Time Spent with Patient: Total time spent is greater than 50% in coordination of care (as documented) at patient's floor/unit and/or counseling patient: Coding Level of Care Code 46473 Subseq Hosp Care Lvl 2 Diagnoses DVT (deep venous thrombosis) I82.409 Acute renal failure N17.9 Perforated bowel K63.1 Colonic stricture K56.699 Hypertension I10 Hypertension type: essential hypertension Atrial flutter I48.3 Atrial flutter type: typical Depression F32.9 Delirium R41.0 Oral candidiasis B37.0 (1) Atrial flutter Atrial flutter type: typical Qualified Code(s): I48.3 - Typical atrial flutter (2) Hypertension Hypertension type: essential hypertension Qualified Code(s): I10 - Essential (primary) hypertension
[2022-04-18] MEDS: NYSTATIN SUSP 500,000 U/5 ML UDC PO SCH ×2 (17:18→20:23)
[2022-04-18] MEDS: MELATONIN 3 MG TAB PO SCH (20:23)
[2022-04-19] MEDS: ONDANSETRON INJ 2 MG/ML 2 ML VIAL IV PRN (00:17)
--- NOTE | 2022-04-19 05:58 | Surgery Progress Note ---
Date of Service April 19, 2022 Assessment & Plan (1) Stricture of sigmoid colon: Plan: Patient is status post laparoscopic sigmoid colon resection secondary to stricture on 03/27/2022 Patient is status post exploratory laparoscopy/laparotomy with repair of anastomosis and creation of ileostomy on 03/29/2022 Only acute issue noted over past 24 hours has been intermittent anxiety/agitation Hospital service has initiated Zyprexa for this issue Acute kidney injury noted since surgery which may be related to high ostomy output and poor oral intake. Nephrology has been following. IV fluid for volume expansion has been utilized. Nephrology has been adjusting fluid rate based on laboratory results. Creatinine had improved yesterday Awaiting a.m. labs are pending Patient has left lower extremity DVT and presumed PE. He remains on heparin drip for this problem. Can consider switching heparin drip to Eliquis in the future if renal function continues to improve Encourage oral intake. Dietary department helping optimize nutritional status. Continue PT and OT secondary to deconditioning (rehab has been recommended) (2) DVT (deep venous thrombosis): (3) History of intestinal surgery: (4) Pneumoperitoneum: Admission and Anticipated Discharge Date Admission Date: March 26, 2022 Supervising Physician Co-Signing Physician Notes Dr. Barnes evidence of obstruction or intra-abdominal infection-does have watery ileostomy output His potassium is normal, creatinine is improved significantly-adequate urine output Continue to encourage p.o. intake. Subjective Patient is currently resting comfortably in bed and is not in any distress. I discussed his care with nursing staff. Patient was noted to be anxious at times last evening but this resolves as patient is able to get some rest. Intermittent nausea has been reported. The patient is also noted to have considerable amount of liquid output from his ileostomy. No fevers noted. The patient does have intermittent nausea no emesis has been noted. No additional concerns noted. Physical Exam Respiratory: normal respiratory effort; no respiratory distress and no labored breathing Cardiovascular: Rate/Rhythm: regular rate and regular rhythm Gastrointestinal (Abdomen): Abdomen is soft and nondistended. Ileostomy examined and appears pink and viable with liquid material noted in the collection bag. Results & Data ([facility]) Vital Signs (Past 12 Hours) Vital Signs Temp Pulse Pulse Resp BP Pulse Ox 04/19/22 03:02 37.0 C 18 116/60 95 04/18/22 23:21 36.5 C 73 16 114/70 94 04/18/22 23:15 91 H 04/18/22 18:54 37.4 C 97 H 16 127/40 L 93 PG Care Time/CCT Total # of Minutes Spent Total Time Spent with Patient: Total time spent is greater than 50% in coordination of care (as documented) at patient's floor/unit and/or counseling patient: Coding Level of Care Code None Diagnoses Stricture of sigmoid colon K56.699 DVT (deep venous thrombosis) I82.409 History of intestinal surgery Z98.890 Pneumoperitoneum K66.8
[2022-04-19] MEDS: LACTATED RINGER'S 1,000 ML IV SCH ×2 (06:01→17:29)
[2022-04-19] MEDS: HEPARIN SODIUM/DEXTROSE 25,000 UNITS/500 ML BAG IV SCH (06:10)
[2022-04-19 06:45] LABS: Basophils # (auto) 0.03 K/uL (0-0.2); Basophils % (auto) 0.6 %; Eosinophils # (auto) 0.04 K/uL (0-0.50); Eosinophils % (auto) 0.7 %; Hematocrit (blood only) 30.2 % (40.1-51.0); Immature Granulocytes # (auto) 0.03 K/uL (0.00-0.02); Immature Granulocytes % (auto) 0.6 %; Lymphocytes # (auto) 0.96 K/uL (1.2-3.4); Lymphocytes % (auto) 17.8 %; Mean Corpuscular Hemoglobin 31.6 pg (25.0-34.0); Mean Corpuscular Hgb Conc 33.1 g/dL (32.0-36.0); Mean Corpuscular Volume 95.6 fL (80.0-100.0); Mean Platelet Volume 9.9 fL (9.4-12.4); Monocytes % (auto) 7.4 %; Neutrophils # (auto) 3.92 K/uL (1.4-6.5); Neutrophils % (auto) 72.9 %; Platelet Count 313 K/uL (130-400); RDW Coefficient of Variation 14.8 % (11.5-14.5); RDW Standard Deviation 51.5 fL (36.4-46.3); Red Blood Count 3.16 M/uL (4.63-6.08); White Blood Count 5.38 K/ul (4.8-10.8)
[2022-04-19 07:02] LABS: BUN Creatinine Ratio 19.9 (10-20); Calcium 8.8 mg/dl (8.5-10.1); Creatinine Clr Calc Pharmacy 28.6 ml/min; Est GFR (African American) 37.6 ml/min; Est GFR (Non-African American) 32.4 ml/min; Potassium 3.9 mmol/L (3.5-5.1)
[2022-04-19 07:16] LABS: Partial Thromboplastin Ratio 2.3
[2022-04-19 07:20] LABS: Partial Thromboplastin Time 62.1 Seconds (21.0-31.0)
[2022-04-19] MEDS: ACETAMINOPHEN 325 MG TAB PO PRN ×2 (07:47→20:43)
[2022-04-19] MEDS: FAMOTIDINE 20 MG TAB PO SCH (08:55)
[2022-04-19] MEDS: METOPROLOL TARTRATE 50 MG TAB PO SCH ×2 (08:55→20:41)
[2022-04-19] MEDS: NYSTATIN SUSP 500,000 U/5 ML UDC PO SCH ×4 (08:57→20:41)
--- NOTE | 2022-04-19 10:08 | Nephrology Progress Note ---
Date of Service April 19, 2022 Assessment & Plan (1) Acute renal failure: Plan: * VIMAL - likely hemodynamically medicated ATN. Now in the recovery phase. Patient is nonoliguric. Cr improved to 1.8 (baseline 1.2) * Volume status and electrolyte balance are acceptable. No acute indication for HD this am * Nonoliguric. Continue gentle hydration w/ LR at 80 cc/hr * Monitor PRP (2) Anastomotic leak of intestine: Plan: * Sigmoidectomy 03/26 for stricture complicated by anastomotic leak requiring emergent laparotomy with diverting ileostomy 03/29. (3) DVT (deep venous thrombosis): Plan: * Currently on heparin gtt Admission and Anticipated Discharge Date Admission Date: March 26, 2022 Subjective Mr. Desir was evaluated in his hospital room. He was asleep but awakened to voice and spoke his name. Review of Systems Constitutional: + weakness; no fever Eyes: no problem reported Ear, Nose, Mouth, Throat: no problem reported Respiratory: no cough and no dyspnea Cardiovascular: no chest pain, no palpitations and no edema Gastrointestinal: no abdominal pain Physical Exam Constitutional: + frail appearing Eyes: PERRL, conjunctivae normal, anicteric sclerae ENMT: external ear and nose normal, oropharynx normal Neck: trachea midline, no thyromegaly Respiratory: normal respiratory effort, lungs clear to auscultation Cardiovascular: RRR, no murmur, no edema Gastrointestinal (Abdomen): Inspection/Auscultation: normal bowel sounds Percussion/Palpation: abdomen soft; abdomen nontender Skin: no rashes, warm and dry Neurologic: awake Results & Data ([facility]) Vital Signs (Past 12 Hours) Vital Signs Temp Pulse Pulse Resp BP Pulse Ox 04/19/22 08:19 74 04/19/22 07:43 36.6 C 94 H 16 133/80 94 04/19/22 03:02 37.0 C 18 116/60 95 04/18/22 23:21 36.5 C 73 16 114/70 94 04/18/22 23:15 91 H Laboratory Results Laboratory Tests 04/19/22 04/19/22 05:56 05:56 WBC 5.38 Hgb 10.0 L Hct 30.2 L Plt Count 313 Sodium 134 L Potassium 3.9 Chloride 101 Carbon Dioxide 28 BUN 36 H Creatinine 1.81 H D Glucose 127 H Calcium 8.8 PG Care Time/CCT Total # of Minutes Spent Total Time Spent with Patient: Total time spent is greater than 50% in coordination of care (as documented) at patient's floor/unit and/or counseling patient: Coding Level of Care Code 14724 Subseq Hosp Care Lvl 3 Diagnoses Acute renal failure N17.9 Anastomotic leak of intestine K91.89 DVT (deep venous thrombosis) I82.409
--- NOTE | 2022-04-19 16:08 | Hospitalist Progress Note ---
Date of Service April 19, 2022 Assessment & Plan (1) DVT (deep venous thrombosis): Plan: Acute DVT which is new this admission. Likely pulmonary emboli secondary tachycardia Patient empirically started on heparin. DOAC was held secondary to renal function If no surgical intervention, consider switch to DOAC (2) Acute renal failure: Plan: Sudden decline in renal function likely related to #1 (PE)- volume, nephrology following, improved, conservative follow-up at present Continue lactated Ringer's at 80 mL/h and follow serial labs Nephrology consulted and following. Appreciate their input (3) Perforated bowel: Plan: S/p 03/29 for exp lap converted to oral laparotomy with repair of perforation and diverting ileostomy - VONNIE drains have been removed by surgery. -Ileostomy function is now normal. Was on PPN for several days postoperatively due to ileus. Diet has been advanced per surgery and drains removed. 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 Castro on 03/26/2022 with interval development of perforated bowel on 03/29 (5) Hypertension: Plan: - Lisinopril and hydrochlorothiazide now on hold due to acute kidney injury. Metoprolol tartrate dosage uptitrated to 50 mg p.o. twice daily Hydralazine ordered as needed -no doses given Continue with vital signs per protocol (6) Atrial flutter: Plan: Patient has a history of atrial flutter managed by Dr. Flores at [facility] cardiology. On metoprolol and Eliquis at baseline Eliquis on hold. Patient is currently on heparin drip for DVTs and probable pulmonary emboli (7) Depression: Plan: Continue Celexa (8) Delirium: Plan: No change Unsure of baseline. (9) Oral candidiasis: Plan: Identified on physical examination 04/18/2022 Patient started on nystatin swish and swallow Continue to follow clinically Admission and Anticipated Discharge Date Admission Date: March 26, 2022 Subjective Attending: Dr. Masters Patient seen and examined in room 238. He continues to require a one-to-one sitter. He awakens easily to command. He still does have some confusion. He states he has some minimal abdominal pain. No nausea or vomiting. No chest pain or tightness. He denies fever or chills. He has no other acute complaints. Review of Systems Review of Systems: A total of 10 systems was reviewed and is negative other than as listed in the HPI Physical Exam Physical Exam: GENERAL : No acute distress EYES: No icterus, gaze conjugate NOSE: No evidence of epistaxis MOUTH: No lesions or candidiasis NECK: Supple LUNGS: CTA B/L, no wheezes, rales or rhonchi HEART: Regular, rate controlled ABDOMEN: Soft. Minimal tenderness to palpation around trocar sites on left. Some minimal pain around the ostomy site. No erythema or warmth to suggest superficial infection EXTREMITIES: No LE edema, pedal pulses intact NEURO: Follows simple commands. Answers most questions appropriately. Appears to have some level of dementia. Results & Data Results & Data ([facility]) Vital Signs (Past 12 Hours) Vital Signs Temp Pulse Pulse Resp BP Pulse Ox 04/19/22 16:01 36.1 C L 77 15 108/66 95 04/19/22 15:37 68 04/19/22 11:47 36.1 C L 65 16 112/72 94 04/19/22 08:19 74 04/19/22 07:43 36.6 C 94 H 16 133/80 94 Critical Care Results & Data Vital Signs (Past 12 Hours) Vital Signs Temp Pulse Pulse Resp BP Pulse Ox 04/19/22 16:01 36.1 C L 77 15 108/66 95 04/19/22 15:37 68 04/19/22 11:47 36.1 C L 65 16 112/72 94 04/19/22 08:19 74 04/19/22 07:43 36.6 C 94 H 16 133/80 94 Lab & Micro Results (Past 24 Hours) RBC 3.16 M/uL (4.63-6.08) L 04/19/22 WBC 5.38 K/ul (4.8-10.8) 04/19/22 Hgb 10.0 g/dl (14.0-18.0) L 04/19/22 Hct 30.2 % (40.1-51.0) L 04/19/22 MCV 95.6 fL (80.0-100.0) 04/19/22 MCH 31.6 pg (25.0-34.0) 04/19/22 MCHC 33.1 g/dL (32.0-36.0) 04/19/22 RDW Standard Deviation 51.5 fL (36.4-46.3) H 04/19/22 RDW Coefficient of Variation 14.8 % (11.5-14.5) H 04/19/22 Plt Count 313 K/uL (130-400) 04/19/22 MPV 9.9 fL (9.4-12.4) 04/19/22 Neutrophils (%) (Auto) 72.9 % 04/19/22 Lymphocytes (%) (Auto) 17.8 % 04/19/22 Monocytes # (Auto) 0.40 K/uL (0.24-0.82) 04/19/22 Eosinophils # (Auto) 0.04 K/uL (0-0.50) 04/19/22 Immature Granulocyte % (Auto) 0.6 % 04/19/22 Neutrophils # (Auto) 3.92 K/uL (1.4-6.5) 04/19/22 Lymphocytes # (Auto) 0.96 K/uL (1.2-3.4) L 04/19/22 Monocytes # (Auto) 0.40 K/uL (0.24-0.82) 04/19/22 Eosinophils # (Auto) 0.04 K/uL (0-0.50) 04/19/22 Basophils # (Auto) 0.03 K/uL (0-0.2) 04/19/22 Immature Granulocyte # (Auto) 0.03 K/uL (0.00-0.02) H 04/19/22 Na 134 mmol/L (136-145) L 04/19/22 K 3.9 mmol/L (3.5-5.1) 04/19/22 Cl 101 mmol/L (98-107) 04/19/22 CO2 28 mmol/L (21-32) 04/19/22 Anion Gap 5 (3-11) 04/19/22 BUN 36 mg/dl (6-23) H 04/19/22 Creatinine 1.81 mg/dl (0.6-1.4) H 04/19/22 Estimated GFR ( Amer) 37.6 ml/min 04/19/22 Estimated GFR (Non-Af Amer) 32.4 ml/min 04/19/22 BUN/Creatinine Ratio 19.9 (10-20) 04/19/22 Glu 127 mg/dl (70-99(Fasting)) H 04/19/22 Ca 8.8 mg/dl (8.5-10.1) 04/19/22 Calcium Level 8.8 mg/dl (8.5-10.1) 04/19/22 05:56 04/19/22 I & O Totals 24 Hours 04/18/22 04/19/22 04/20/22 06:59 06:59 06:59 Intake Total 3458.017 / 3734.017 3767.850 / 3767.850 147.6 / 147.6 Output Total 2900 / 2900 3200 / 3200 650 / 650 Balance 558.017 / 834.017 567.850 / 567.850 -502.4 / -502.4 Cumulative 03/03/22 11:24 thru 04/19/22 14:17 Intake Total 00317.524 Output Total 52885 Balance 8564.524 RT Ventilator Mngmt (Last Documented) Ventilator Ordered Settings Ventilator Support Mode CPAP 03/30/22 07:40 Respiratory Rate 15 04/19/22 16:01 Ventilator Tidal Volume 450 03/30/22 07:15 Setting Minute Ventilation 8.4 03/30/22 07:40 Ventilator Positive Pressure 10 03/30/22 07:40 Support Setting Positive End Expiratory 5 03/30/22 07:40 Pressure Fraction of Inspired Oxygen 30 03/30/22 07:40 Machine Comment Placed on CPAP 03/30/22 07:40 Ventilator - PT Measurements Respiratory Rate 15 Exhaled Tidal Volume 622 Minute Ventilation 8.4 Peak Inspiratory Airway 16 Pressure Plateau Pressure 18 Respiratory Cycle Inspiratory: 1:3.3 Expiratory Ratio Inspiratory Phase Time 1.18 End-Tidal CO2 32 Static Lung Compliance 34.62 Dynamic Lung Compliance 56.55 Normal Static Lung Compliance 49.00 Patient Measurements Comment Patient extubated to 3L, SPO2 97% PG Care Time/CCT Total # of Minutes Spent Total Time Spent with Patient: Total time spent is greater than 50% in coordination of care (as documented) at patient's floor/unit and/or counseling patient: Coding Level of Care Code 75286 Subseq Hosp Care Lvl 2 Diagnoses DVT (deep venous thrombosis) I82.409 Acute renal failure N17.9 Perforated bowel K63.1 Colonic stricture K56.699 Hypertension I10 Hypertension type: essential hypertension Atrial flutter I48.3 Atrial flutter type: typical Depression F32.9 Delirium R41.0 Oral candidiasis B37.0 (1) Hypertension Hypertension type: essential hypertension Qualified Code(s): I10 - Essential (primary) hypertension (2) Atrial flutter Atrial flutter type: typical Qualified Code(s): I48.3 - Typical atrial flutter
[2022-04-19] MEDS: MELATONIN 3 MG TAB PO SCH (20:41)
[2022-04-20] MEDS: HEPARIN SODIUM/DEXTROSE 25,000 UNITS/500 ML BAG IV SCH (02:57)
[2022-04-20] MEDS: LACTATED RINGER'S 1,000 ML IV SCH (05:24)
[2022-04-20 07:07] LABS: BUN Creatinine Ratio 17.5 (10-20); Calcium 8.9 mg/dl (8.5-10.1); Creatinine Clr Calc Pharmacy 31.1 ml/min; Est GFR (African American) 41.7 ml/min; Potassium 3.9 mmol/L (3.5-5.1)
[2022-04-20 07:29] LABS: Partial Thromboplastin Ratio 1.9
[2022-04-20] MEDS: METOPROLOL TARTRATE 50 MG TAB PO SCH ×2 (08:32→20:38)
[2022-04-20] MEDS: FAMOTIDINE 20 MG TAB PO SCH (08:32)
[2022-04-20] MEDS: NYSTATIN SUSP 500,000 U/5 ML UDC PO SCH ×4 (08:33→20:38)
--- NOTE | 2022-04-20 08:40 | Nephrology Progress Note ---
Date of Service April 20, 2022 Assessment & Plan (1) Acute renal failure: Plan: * VIMAL - likely hemodynamically medicated ATN. Now in the recovery phase. Patient is nonoliguric. Cr improved to 1.6 (baseline 1.2) * Volume status and electrolyte balance are acceptable. No acute indication for HD this am * Nonoliguric. Heplock IV and encourage oral hydration * Will remove Lozoya catheter this morning and monitor UO * Monitor PRP (2) Anastomotic leak of intestine: Plan: * Sigmoidectomy 03/26 for stricture complicated by anastomotic leak requiring emergent laparotomy with diverting ileostomy 03/29. (3) DVT (deep venous thrombosis): Plan: * Currently on heparin gtt Admission and Anticipated Discharge Date Admission Date: March 26, 2022 Subjective Mr. Desir was evaluated in his hospital room. He was sitting up in a chair eating breakfast. He c/o fatigue but reports a good apetite Review of Systems Constitutional: + weakness; no fever Eyes: no problem reported Ear, Nose, Mouth, Throat: no problem reported Respiratory: no cough and no dyspnea Cardiovascular: no chest pain, no palpitations and no edema Gastrointestinal: no abdominal pain Physical Exam Constitutional: + frail appearing Eyes: PERRL, conjunctivae normal, anicteric sclerae ENMT: external ear and nose normal, oropharynx normal Neck: trachea midline, no thyromegaly Respiratory: normal respiratory effort, lungs clear to auscultation Cardiovascular: RRR, no murmur, no edema Gastrointestinal (Abdomen): Inspection/Auscultation: normal bowel sounds Percussion/Palpation: abdomen soft; abdomen nontender Skin: no rashes, warm and dry Neurologic: awake Results & Data ([facility]) Vital Signs (Past 12 Hours) Vital Signs Temp Pulse Resp BP Pulse Ox 04/20/22 07:48 36.5 C 105 H 19 117/69 97 04/20/22 05:39 37.0 C 74 13 133/73 96 04/19/22 23:00 36.5 C 75 18 108/62 94 Laboratory Results Laboratory Tests 04/20/22 06:10 Sodium 136 Potassium 3.9 Chloride 101 Carbon Dioxide 28 BUN 29 H Creatinine 1.66 H Est GFR (Non-Af Amer) 36.0 Glucose 133 H Calcium 8.9 PG Care Time/CCT Total # of Minutes Spent Total Time Spent with Patient: Total time spent is greater than 50% in coordination of care (as documented) at patient's floor/unit and/or counseling patient: Coding Level of Care Code 17561 Subseq Hosp Care Lvl 3 Diagnoses Acute renal failure N17.9 Anastomotic leak of intestine K91.89 DVT (deep venous thrombosis) I82.409
--- NOTE | 2022-04-20 09:40 | Surgery Progress Note ---
Date of Service April 20, 2022 Assessment & Plan (1) History of intestinal surgery: Plan: Patient awake, remains slightly confused -Today renal function shows improvement with BUN 29, Cr: 1.6. + urine output in arroyo -Discussed with Nephrology... with improving numbers he is again close to possible discharge in the near future...we will trial stopping the 80cc/hour of IVF and continue to encourage oral intake (appreciate nursing assistance with this during meal times) -Plan to transition heparin gtt to po eliquis today -Curbside with ENT...can consider inpt laryngoscope on Wednesday vs. outpt follow up for his hoarseness 2/2 self extubation...in house laryngoscope will require holding blood thinners for 48 hours, so we will opt for outpatient follow up - Continue to work with PT/OT and discuss with case management plans for rehab in near future as above. pt still confused. likely some owning effect on top of baseline mild dementia. will see if he can drink enough to keep his renal fx at baseline. will d/w case management regarding goals to be able to d/c to rehab. no surgical issues currently. appreciate nephrology/medicine help Admission and Anticipated Discharge Date Admission Date: March 26, 2022 Subjective Patient sitting up in the chair with breakfast tray in front of him. Remains slightly confused but oriented to self Physical Exam Physical Exam: awake, sitting up in chair Gastrointestinal (Abdomen): + ostomy output Results & Data ([facility]) Vital Signs (Past 12 Hours) Vital Signs Temp Pulse Resp BP Pulse Ox 04/20/22 07:48 36.5 C 105 H 19 117/69 97 04/20/22 05:39 37.0 C 74 13 133/73 96 04/19/22 23:00 36.5 C 75 18 108/62 94 PG Care Time/CCT Total # of Minutes Spent Total Time Spent with Patient: Total time spent is greater than 50% in coordination of care (as documented) at patient's floor/unit and/or counseling patient: Coding Level of Care Code None Diagnoses History of intestinal surgery Z98.890
[2022-04-20] MEDS ORDERED: APIXABAN 2.5 MG TAB PO SCH (09:45)
--- NOTE | 2022-04-20 15:33 | Hospitalist Progress Note ---
Date of Service April 20, 2022 Assessment & Plan (1) DVT (deep venous thrombosis): Plan: Acute DVT which is new this admission. Initially on heparin, has been transitioned to NOAC (2) Acute renal failure: Plan: Renal function has improved Serum Cr 1.6 today, was 2.8 a couple of days ago appreciate nephrology recs (3) Perforated bowel: Plan: S/p 03/29 for exp lap converted to oral laparotomy with repair of perforation and diverting ileostomy - VONNIE drains have been removed by surgery. -Ileostomy function is now normal. Was on PPN for several days postoperatively due to ileus. Diet has been advanced per surgery and drains removed. 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 Castro on 03/26/2022 with interval development of perforated bowel on 03/29 (5) Hypertension: Plan: - Lisinopril and hydrochlorothiazide now on hold due to acute kidney injury. Metoprolol tartrate dosage uptitrated to 50 mg p.o. twice daily Hydralazine ordered as needed -no doses given Continue with vital signs per protocol BP 120/70 today (6) Atrial flutter: Plan: Patient has a history of atrial flutter managed by Dr. Flores at [facility] cardiology. On metoprolol and Eliquis at baseline Eliquis on hold. Patient is currently on heparin drip for DVTs and probable pulmonary emboli (7) Depression: Plan: Continue Celexa (8) Delirium: Plan: No change Unsure of baseline. (9) Oral candidiasis: Plan: Identified on physical examination 04/18/2022 Patient started on nystatin swish and swallow Continue to follow clinically Plan: discharge to rehab when accepted Admission and Anticipated Discharge Date Admission Date: March 26, 2022 Subjective patient seen and examined, no new complaints Review of Systems Review of Systems: All systems reviewed are negative, apart from the ones contained in the history. Physical Exam Physical Exam: The patient is awake, alert and oriented 3, well developed and well nourished, normocephalic and atraumatic, lying in bed and in no acute distress. HEENT--PERRL, EOMI, mucous membranes and oropharynx mildly dry Neck--supple. No JVD. No bruits. Thyroid normal, trachea midline, no adenopathy. Heart--normal S1 and S2. No murmurs, rubs or gallops. Lungs--clear bilaterally, no respiratory distress, no accessory muscle use. Abdomen--normal bowel sounds and soft. Mild epigastric and left sided abdominal pain Extremities--no cyanosis or clubbing. No edema. Dermatologic--normal skin turgor, normal color, no abnormal lymph nodes, no rash. Neurologic--cranial nerves II through XII grossly intact. Rheumatologic--normal range of motion. Psychiatric--normal affect. Results & Data Results & Data ([facility]) Vital Signs (Past 12 Hours) Vital Signs Temp Pulse Resp BP Pulse Ox 04/20/22 11:43 97.7 F 77 18 120/74 97 04/20/22 07:48 97.7 F 105 H 19 117/69 97 04/20/22 05:39 98.6 F 74 13 133/73 96 PG Care Time/CCT Total # of Minutes Spent Total Time Spent with Patient: Total time spent is greater than 50% in coordination of care (as documented) at patient's floor/unit and/or counseling patient: Coding Level of Care Code 93311 Subseq Hosp Care Lvl 2 Diagnoses DVT (deep venous thrombosis) I82.409 Acute renal failure N17.9 Perforated bowel K63.1 Colonic stricture K56.699 Hypertension I10 Hypertension type: essential hypertension Atrial flutter I48.3 Atrial flutter type: typical Depression F32.9 Delirium R41.0 Oral candidiasis B37.0 Time Spent (min) 35 (1) Hypertension Hypertension type: essential hypertension Qualified Code(s): I10 - Essential (primary) hypertension (2) Atrial flutter Atrial flutter type: typical Qualified Code(s): I48.3 - Typical atrial flutter
[2022-04-20] MEDS: MELATONIN 3 MG TAB PO SCH (20:37)
[2022-04-20] MEDS: APIXABAN 5 MG TABLET PO SCH (20:37)
[2022-04-20] MEDS: ACETAMINOPHEN 325 MG TAB PO PRN (20:39)
[2022-04-21 07:07] LABS: Basophils # (auto) 0.02 K/uL (0-0.2); Basophils % (auto) 0.5 %; Eosinophils # (auto) 0.07 K/uL (0-0.50); Eosinophils % (auto) 1.7 %; Hemoglobin 11.1 g/dl (14.0-18.0); Immature Granulocytes # (auto) 0.03 K/uL (0.00-0.02); Immature Granulocytes % (auto) 0.7 %; Lymphocytes # (auto) 1.08 K/uL (1.2-3.4); Mean Corpuscular Hemoglobin 30.8 pg (25.0-34.0); Mean Corpuscular Hgb Conc 32.6 g/dL (32.0-36.0); Mean Corpuscular Volume 94.4 fL (80.0-100.0); Mean Platelet Volume 9.6 fL (9.4-12.4); Monocytes # (auto) 0.47 K/uL (0.24-0.82); Monocytes % (auto) 11.3 %; Neutrophils # (auto) 2.49 K/uL (1.4-6.5); Neutrophils % (auto) 59.8 %; Platelet Count 315 K/uL (130-400); RDW Coefficient of Variation 14.7 % (11.5-14.5); RDW Standard Deviation 51.2 fL (36.4-46.3); White Blood Count 4.16 K/ul (4.8-10.8)
[2022-04-21 07:19] LABS: Partial Thromboplastin Time 27.2 Seconds (21.0-31.0)
[2022-04-21 07:33] LABS: BUN Creatinine Ratio 15.1 (10-20); Calcium 9.4 mg/dl (8.5-10.1); Creatinine Clr Calc Pharmacy 29.7 ml/min; Est GFR (Non-African American) 34.5 ml/min
--- NOTE | 2022-04-21 08:32 | Nephrology Progress Note ---
Date of Service April 21, 2022 Assessment & Plan (1) Acute renal failure: Plan: * VIMAL - likely hemodynamically medicated ATN. Now in the recovery phase. Patient is nonoliguric. Cr is approaching baseline * Volume status and electrolyte balance are acceptable * Continue to encourage oral hydration * No further Nephrology evaluation indicated at this time. Will sign off. Please call if further assistance is needed (2) Anastomotic leak of intestine: Plan: * Sigmoidectomy 03/26 for stricture complicated by anastomotic leak requiring emergent laparotomy with diverting ileostomy 03/29. (3) DVT (deep venous thrombosis): Plan: * Currently on apixaban Admission and Anticipated Discharge Date Admission Date: March 26, 2022 Subjective Mr. Desir was evaluated in his hospital room. He reports that his arroyo catheter was removed and he is voiding without difficulty. Review of Systems Constitutional: + weakness; no fever Eyes: no problem reported Ear, Nose, Mouth, Throat: no problem reported Respiratory: no cough and no dyspnea Cardiovascular: no chest pain, no palpitations and no edema Gastrointestinal: no abdominal pain Physical Exam Constitutional: + frail appearing Eyes: PERRL, conjunctivae normal, anicteric sclerae ENMT: external ear and nose normal, oropharynx normal Neck: trachea midline, no thyromegaly Respiratory: normal respiratory effort, lungs clear to auscultation Cardiovascular: RRR, no murmur, no edema Gastrointestinal (Abdomen): Inspection/Auscultation: normal bowel sounds Percussion/Palpation: abdomen soft; abdomen nontender Skin: no rashes, warm and dry Neurologic: awake Results & Data ([facility]) Vital Signs (Past 12 Hours) Vital Signs Temp Pulse Pulse Resp BP Pulse Ox 04/21/22 07:55 36.3 C L 80 18 123/55 L 96 04/21/22 07:22 78 04/21/22 04:36 36.6 C 79 15 127/76 96 04/21/22 00:20 36.7 C 76 14 121/77 94 04/21/22 00:01 75 Laboratory Results Laboratory Tests 04/06/22 04/21/22 04/21/22 06:24 06:33 06:33 WBC 4.16 L Hgb 11.1 L Hct 34.0 L Plt Count 315 Sodium 138 Potassium 4.0 Chloride 101 Carbon Dioxide 29 BUN 26 H Creatinine 1.35 1.72 H Glucose 129 H PG Care Time/CCT Total # of Minutes Spent Total Time Spent with Patient: Total time spent is greater than 50% in coordination of care (as documented) at patient's floor/unit and/or counseling patient: Coding Level of Care Code 73664 Subseq Hosp Care Lvl 3 Diagnoses Acute renal failure N17.9 Anastomotic leak of intestine K91.89 DVT (deep venous thrombosis) I82.409
[2022-04-21] MEDS: APIXABAN 5 MG TABLET PO SCH ×2 (08:51→20:55)
[2022-04-21] MEDS: METOPROLOL TARTRATE 50 MG TAB PO SCH ×2 (08:51→20:55)
[2022-04-21] MEDS: FAMOTIDINE 20 MG TAB PO SCH (08:51)
[2022-04-21] MEDS: NYSTATIN SUSP 500,000 U/5 ML UDC PO SCH ×4 (08:52→20:56)
--- NOTE | 2022-04-21 13:47 | Surgery Progress Note ---
Date of Service April 21, 2022 Assessment & Plan (1) History of intestinal surgery: Plan: Patient awake, no acute distress -Cr 1.7 (1.6). Lozoya removed yesterday and he is voiding. Nephrology signed off today -Transitioned to po eliquis yesterday for +DVT -Continue to encourage oral intake and work with PT/OT -Pt stable from our standpoint for discharge to rehab as early as today. Received nephrology and hospitalists clearance. Case management aware and working on setting up placement for today vs tomorrow Admission and Anticipated Discharge Date Admission Date: March 26, 2022 Subjective patient says he feels so-so. when prompted is not necessarily offering any complaints. says he is eating. denies abdominal pain. Physical Exam Physical Exam: awake, lying in bed Gastrointestinal (Abdomen): Inspection/Auscultation: + abdominal surgical incision (midline incision c/d/i no signs of infection); abdomen not distended Percussion/Palpation: abdomen soft; abdomen nontender + ostomy with liquid stool in bag Results & Data ([facility]) Vital Signs (Past 12 Hours) Vital Signs Temp Pulse Pulse Resp BP Pulse Ox 04/21/22 12:02 36.5 C 79 20 111/74 97 04/21/22 07:55 36.3 C L 80 18 123/55 L 96 04/21/22 07:22 78 04/21/22 04:36 36.6 C 79 15 127/76 96 PG Care Time/CCT Total # of Minutes Spent Total Time Spent with Patient: Total time spent is greater than 50% in coordination of care (as documented) at patient's floor/unit and/or counseling patient: Coding Level of Care Code None Diagnoses History of intestinal surgery Z98.890
--- NOTE | 2022-04-21 15:28 | Hospitalist Progress Note ---
Date of Service April 21, 2022 Assessment & Plan (1) DVT (deep venous thrombosis): Plan: Acute DVT which is new this admission. Initially on heparin, has been transitioned to Apixaban 2.5mg BID (2) Acute renal failure: Plan: Renal function has improved Serum Cr 1.7 today, was 2.8 a couple of days ago appreciate nephrology recs (3) Perforated bowel: Plan: S/p 03/29 for exp lap converted to laparotomy with repair of perforation and diverting ileostomy - VONNIE drains have been removed by surgery. -Ileostomy function is now normal. 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 Castro on 03/26/2022 with interval development of perforated bowel on 03/29 (5) Hypertension: Plan: - Lisinopril and hydrochlorothiazide now on hold due to acute kidney injury. Metoprolol tartrate dosage uptitrated to 50 mg p.o. twice daily Hydralazine ordered as needed -no doses given Continue with vital signs per protocol BP 120/70 today (6) Atrial flutter: Plan: Patient has a history of atrial flutter managed by Dr. Flores at [facility] cardiology. On metoprolol and Apixaban (7) Depression: Plan: Continue Celexa (8) Delirium: Plan: No change Unsure of baseline. (9) Oral candidiasis: Plan: Identified on physical examination 04/18/2022 Patient started on nystatin swish and swallow Continue to follow clinically Plan: discharge to rehab when accepted Admission and Anticipated Discharge Date Admission Date: March 26, 2022 Subjective patient seen and examined, denies any new complaints, says his appetite is poor Review of Systems Review of Systems: All systems reviewed are negative, apart from the ones contained in the history. Physical Exam Physical Exam: The patient is awake, alert and oriented 3, well developed and well nourished, normocephalic and atraumatic, lying in bed and in no acute distress. HEENT--PERRL, EOMI, mucous membranes and oropharynx mildly dry Neck--supple. No JVD. No bruits. Thyroid normal, trachea midline, no adenopathy. Heart--normal S1 and S2. No murmurs, rubs or gallops. Lungs--clear bilaterally, no respiratory distress, no accessory muscle use. Abdomen--colostomy in situ Extremities--no cyanosis or clubbing. No edema. Dermatologic--normal skin turgor, normal color, no abnormal lymph nodes, no rash. Neurologic--cranial nerves II through XII grossly intact. Rheumatologic--normal range of motion. Psychiatric--normal affect. Results & Data Results & Data ([facility]) Vital Signs (Past 12 Hours) Vital Signs Temp Pulse Pulse Resp BP Pulse Ox 04/21/22 14:52 91 H 04/21/22 12:02 97.7 F 79 20 111/74 97 04/21/22 07:55 97.3 F L 80 18 123/55 L 96 04/21/22 07:22 78 04/21/22 04:36 97.9 F 79 15 127/76 96 PG Care Time/CCT Total # of Minutes Spent Total Time Spent with Patient: Total time spent is greater than 50% in coordination of care (as documented) at patient's floor/unit and/or counseling patient: Coding Level of Care Code 62020 Subseq Hosp Care Lvl 2 Diagnoses DVT (deep venous thrombosis) I82.409 Acute renal failure N17.9 Perforated bowel K63.1 Colonic stricture K56.699 Hypertension I10 Hypertension type: essential hypertension Atrial flutter I48.3 Atrial flutter type: typical Depression F32.9 Delirium R41.0 Oral candidiasis B37.0 Time Spent (min) 35 (1) Hypertension Hypertension type: essential hypertension Qualified Code(s): I10 - Essential (primary) hypertension (2) Atrial flutter Atrial flutter type: typical Qualified Code(s): I48.3 - Typical atrial flutter
[2022-04-21] MEDS: CHLORASEPTIC 1.4% SOLN 180 ML BTL MT PRN (16:22)
[2022-04-21] MEDS: MELATONIN 3 MG TAB PO SCH (20:56)
[2022-04-22] MEDS ORDERED: APIXABAN 5 MG TABLET PO SCH (07:00)
[2022-04-22 08:08] LABS: BUN Creatinine Ratio 16.9 (10-20); Calcium 9.5 mg/dl (8.5-10.1); Creatinine Clr Calc Pharmacy 29.2 ml/min; Est GFR (Non-African American) 34.5 ml/min; Potassium 3.9 mmol/L (3.5-5.1)
[2022-04-22] MEDS: APIXABAN 5 MG TABLET PO SCH ×2 (08:58→21:23)
[2022-04-22] MEDS: METOPROLOL TARTRATE 50 MG TAB PO SCH ×2 (08:58→21:23)
[2022-04-22] MEDS: ALFUZOSIN HCL 10 MG TAB PO SCH (08:59)
[2022-04-22] MEDS: NYSTATIN SUSP 500,000 U/5 ML UDC PO SCH ×4 (08:59→21:23)
[2022-04-22] MEDS: FAMOTIDINE 20 MG TAB PO SCH (08:59)
[2022-04-22] MEDS: CHLORASEPTIC 1.4% SOLN 180 ML BTL MT PRN ×2 (09:01→17:05)
--- NOTE | 2022-04-22 09:35 | Surgery Progress Note ---
Date of Service April 22, 2022 Assessment & Plan (1) History of intestinal surgery: Plan: Patient awake, no acute distress -Cr stable at 1.7 -On PO eliquis for LLE DVT -Continue to encourage oral intake and work with PT/OT -Pt stable from our standpoint for discharge to rehab as early as today. Received nephrology and hospitalists clearance. Case management aware and working on setting up placement -F/u with Dr. Castro in 2 weeks -Recommended pt see ENT as outpt for evaluation of ongoing vocal hoarseness s/p self extubation (2) Anastomotic leak of intestine: Admission and Anticipated Discharge Date Admission Date: March 26, 2022 Subjective Patient feeling okay, spilled water on his gown/bed this AM. Denies any abdominal pain. Physical Exam Physical Exam: awake Gastrointestinal (Abdomen): Inspection/Auscultation: + abdominal surgical incision (c/d/i with midline wound. ostomy with liquid stool); abdomen not distended Percussion/Palpation: abdomen soft; abdomen nontender + ostomy with liquid stool Results & Data ([facility]) Vital Signs (Past 12 Hours) Vital Signs Temp Pulse Pulse Pulse Resp BP Pulse Ox 04/22/22 07:34 94 H 04/22/22 06:59 36.8 C 98 H 18 120/75 96 04/22/22 05:30 36.5 C 80 16 112/74 98 04/21/22 23:41 90 04/21/22 23:00 36.9 C 81 18 124/72 94 O2 Del Method 04/22/22 07:34 04/22/22 06:59 Room Air 04/22/22 05:30 04/21/22 23:41 04/21/22 23:00 Room Air PG Care Time/CCT Total # of Minutes Spent Total Time Spent with Patient: Total time spent is greater than 50% in coordination of care (as documented) at patient's floor/unit and/or counseling patient: Coding Level of Care Code None Diagnoses History of intestinal surgery Z98.890 Anastomotic leak of intestine K91.89
--- NOTE | 2022-04-22 15:19 | Hospitalist Progress Note ---
Date of Service April 22, 2022 Assessment & Plan (1) DVT (deep venous thrombosis): Plan: Acute DVT which is new this admission. Initially on heparin, has been transitioned to Apixaban 2.5mg BID (2) Acute renal failure: Plan: Renal function has improved Serum Cr 1.7, has been stable around that value for a couple of days now appreciate nephrology recs (3) Perforated bowel: Plan: S/p 03/29 for exp lap converted to laparotomy with repair of perforation and diverting ileostomy - VONNIE drains have been removed by surgery. -Ileostomy function is now normal. 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 Castro on 03/26/2022 with interval development of perforated bowel on 03/29 (5) Hypertension: Plan: - Lisinopril and hydrochlorothiazide now on hold due to acute kidney injury. Metoprolol tartrate dosage uptitrated to 50 mg p.o. twice daily Hydralazine ordered as needed -no doses given Continue with vital signs per protocol (6) Atrial flutter: Plan: Patient has a history of atrial flutter managed by Dr. Flores at [facility] cardiology. On metoprolol and Apixaban (7) Depression: Plan: Continue Celexa (8) Delirium: Plan: No change Unsure of baseline. (9) Oral candidiasis: Plan: Identified on physical examination 04/18/2022 Patient started on nystatin swish and swallow Continue to follow clinically Plan Patient was denied for acute rehab, even after peer to peer. Will likely go to SNF when accepted Admission and Anticipated Discharge Date Admission Date: March 26, 2022 Subjective patient seen and examined, no new complaints today Review of Systems Review of Systems: All systems reviewed are negative, apart from the ones contained in the history. Physical Exam Physical Exam: The patient is awake, alert and oriented 3, well developed and well nourished, normocephalic and atraumatic, lying in bed and in no acute distress. HEENT--PERRL, EOMI, mucous membranes and oropharynx mildly dry Neck--supple. No JVD. No bruits. Thyroid normal, trachea midline, no adenopathy. Heart--normal S1 and S2. No murmurs, rubs or gallops. Lungs--clear bilaterally, no respiratory distress, no accessory muscle use. Abdomen--colostomy in situ Extremities--no cyanosis or clubbing. No edema. Dermatologic--normal skin turgor, normal color, no abnormal lymph nodes, no rash. Neurologic--cranial nerves II through XII grossly intact. Rheumatologic--normal range of motion. Psychiatric--normal affect. Results & Data Results & Data ([facility]) Vital Signs (Past 12 Hours) Vital Signs Temp Pulse Pulse Pulse Resp BP Pulse Ox 04/22/22 15:05 115 H 04/22/22 11:06 98.1 F 82 20 96/64 L 95 04/22/22 09:42 04/22/22 07:34 94 H 04/22/22 06:59 98.2 F 98 H 18 120/75 96 04/22/22 05:30 97.7 F 80 16 112/74 98 O2 Del Method 04/22/22 15:05 04/22/22 11:06 Room Air 04/22/22 09:42 Room Air 04/22/22 07:34 04/22/22 06:59 Room Air 04/22/22 05:30 PG Care Time/CCT Total # of Minutes Spent Total Time Spent with Patient: Total time spent is greater than 50% in coordination of care (as documented) at patient's floor/unit and/or counseling patient: Coding Level of Care Code 93837 Subseq Hosp Care Lvl 2 Diagnoses DVT (deep venous thrombosis) I82.409 Acute renal failure N17.9 Perforated bowel K63.1 Colonic stricture K56.699 Hypertension I10 Hypertension type: essential hypertension Atrial flutter I48.3 Atrial flutter type: typical Depression F32.9 Delirium R41.0 Oral candidiasis B37.0 Time Spent (min) 35 (1) Hypertension Hypertension type: essential hypertension Qualified Code(s): I10 - Essential (primary) hypertension (2) Atrial flutter Atrial flutter type: typical Qualified Code(s): I48.3 - Typical atrial flutter
[2022-04-22] MEDS: MELATONIN 3 MG TAB PO SCH (21:23)
[2022-04-23] MEDS ORDERED: APIXABAN 5 MG TABLET PO SCH (07:00)
[2022-04-23 07:37] LABS: Basophils # (auto) 0.02 K/uL (0-0.2); Basophils % (auto) 0.5 %; Eosinophils # (auto) 0.07 K/uL (0-0.50); Eosinophils % (auto) 1.6 %; Hemoglobin 11.7 g/dl (14.0-18.0); Immature Granulocytes # (auto) 0.05 K/uL (0.00-0.02); Immature Granulocytes % (auto) 1.2 %; Lymphocytes # (auto) 0.92 K/uL (1.2-3.4); Lymphocytes % (auto) 21.2 %; Mean Corpuscular Hemoglobin 31.1 pg (25.0-34.0); Mean Corpuscular Hgb Conc 32.5 g/dL (32.0-36.0); Mean Corpuscular Volume 95.7 fL (80.0-100.0); Mean Platelet Volume 9.7 fL (9.4-12.4); Monocytes % (auto) 9.2 %; Neutrophils # (auto) 2.88 K/uL (1.4-6.5); Neutrophils % (auto) 66.3 %; Platelet Count 307 K/uL (130-400); RDW Coefficient of Variation 14.8 % (11.5-14.5); RDW Standard Deviation 51.9 fL (36.4-46.3); Red Blood Count 3.76 M/uL (4.63-6.08); White Blood Count 4.34 K/ul (4.8-10.8)
[2022-04-23 08:03] LABS: BUN Creatinine Ratio 18.6 (10-20); Calcium 9.5 mg/dl (8.5-10.1); Creatinine Clr Calc Pharmacy 23.6 ml/min; Est GFR (African American) 30.5 ml/min; Est GFR (Non-African American) 26.3 ml/min; Potassium 4.2 mmol/L (3.5-5.1)
[2022-04-23] MEDS: METOPROLOL TARTRATE 50 MG TAB PO SCH ×2 (08:42→22:03)
[2022-04-23] MEDS: FAMOTIDINE 20 MG TAB PO SCH (08:42)
[2022-04-23] MEDS: ALFUZOSIN HCL 10 MG TAB PO SCH (08:42)
[2022-04-23] MEDS: APIXABAN 5 MG TABLET PO SCH ×2 (08:42→22:03)
[2022-04-23] MEDS: NYSTATIN SUSP 500,000 U/5 ML UDC PO SCH ×4 (08:42→22:03)
--- NOTE | 2022-04-23 09:11 | Surgery Progress Note ---
Date of Service April 23, 2022 Assessment & Plan (1) History of intestinal surgery: Plan: Patient awake, no acute distress -Cr slightly up from yesterday 2.1 (1.7), will discuss with hospitalists -On PO eliquis for LLE DVT -Continue to encourage oral intake and work with PT/OT -Apparently per case mgmt notes pt was denied rehab, now looking into placement at SNF - Upon dispo pt will need f/u with Dr. Castro in 2 weeks - Recommended pt see ENT as outpt for evaluation of ongoing vocal hoarseness s/p self extubation As above. no surgical changes. awaiting placement. Admission and Anticipated Discharge Date Admission Date: March 26, 2022 Subjective Patient voices no complaints. Denies abdominal pain/n/v. He tells me is he eating/drinking, but has been dealing with confusion this hospitalization. Physical Exam Physical Exam: awake Gastrointestinal (Abdomen): Inspection/Auscultation: + abdominal surgical incision (c/d/i); abdomen not distended Percussion/Palpation: abdomen soft; abdomen nontender + ostomy wiht liquid sotol in bag Results & Data ([facility]) Vital Signs (Past 12 Hours) Vital Signs Temp Pulse Pulse Pulse Resp BP Pulse Ox 04/23/22 07:47 36.4 C L 90 17 133/80 96 04/23/22 06:10 90 04/23/22 02:30 36.9 C 88 18 130/77 96 04/22/22 23:05 108 H 04/22/22 22:20 104 H 04/22/22 22:50 36.4 C L 101 H 16 112/64 96 O2 Del Method 04/23/22 07:47 Room Air 04/23/22 06:10 04/23/22 02:30 Room Air 04/22/22 23:05 04/22/22 22:20 04/22/22 22:50 Room Air PG Care Time/CCT Total # of Minutes Spent Total Time Spent with Patient: Total time spent is greater than 50% in coordination of care (as documented) at patient's floor/unit and/or counseling patient: Coding Level of Care Code None Diagnoses History of intestinal surgery Z98.890
[2022-04-23] MEDS: SODIUM CHLORIDE 0.9% 1000ML 1,000 ML IV SCH ×2 (09:26→20:45)
[2022-04-23] MEDS: FIRST - Mouthwash BLM 119 ML PO SCH ×4 (11:59→23:20)
[2022-04-23] MEDS: PANTOprazole 40 MG TAB PO SCH (13:32)
--- NOTE | 2022-04-23 14:00 | Hospitalist Progress Note ---
Date of Service April 23, 2022 Assessment & Plan (1) DVT (deep venous thrombosis): Plan: Acute DVT which is new this admission. Initially on heparin, has been transitioned to Apixaban 2.5mg BID (2) Acute renal failure: Plan: Renal function improved initially, but has now declined again Likely due to dehydration, patient not eating and drinking enough will re institute gentle hydration with NS appreciate nephrology recs (3) Perforated bowel: Plan: S/p 03/29 for exp lap converted to laparotomy with repair of perforation and d iverting ileostomy - VONNIE drains have been removed by surgery. -Ileostomy function is now normal. 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 Castro on 03/26/2022 with interval development of perforated bowel on 03/29 (5) Malnutrition: Plan: Moderate malnutrition due to poor oral intake will supplement with Boost TID (6) Hypertension: Plan: BP under good control Lisinopril and hydrochlorothiazide now on hold due to acute kidney injury. Metoprolol tartrate dosage uptitrated to 50 mg p.o. twice daily Hydralazine ordered as needed -no doses given Continue with vital signs per protocol (7) Atrial flutter: Plan: Patient has a history of atrial flutter managed by Dr. Flores at [facility] cardiology. On metoprolol and Apixaban (8) Depression: Plan: Continue Celexa (9) Delirium: Plan: No change Unsure of baseline. (10) Oral candidiasis: Plan: Identified on physical examination 04/18/2022 Patient started on nystatin swish and swallow Continue to follow clinically Plan Patient was denied for acute rehab, even after peer to peer. Will likely go to SNF when accepted Admission and Anticipated Discharge Date Admission Date: March 26, 2022 Subjective patient seen and examined, sitting up in the bed, no new complaints Review of Systems Review of Systems: All systems reviewed are negative, apart from the ones contained in the history. Physical Exam Physical Exam: The patient is awake, alert and oriented 3, well developed and well nourished, normocephalic and atraumatic, lying in bed and in no acute distress. HEENT--PERRL, EOMI, mucous membranes and oropharynx mildly dry Neck--supple. No JVD. No bruits. Thyroid normal, trachea midline, no adenopathy. Heart--normal S1 and S2. No murmurs, rubs or gallops. Lungs--clear bilaterally, no respiratory distress, no accessory muscle use. Abdomen--colostomy in situ Extremities--no cyanosis or clubbing. No edema. Dermatologic--normal skin turgor, normal color, no abnormal lymph nodes, no rash. Neurologic--cranial nerves II through XII grossly intact. Rheumatologic--normal range of motion. Psychiatric--normal affect. Results & Data Results & Data ([facility]) Vital Signs (Past 12 Hours) Vital Signs Temp Pulse Pulse Pulse Resp BP Pulse Ox 04/23/22 10:56 97.5 F L 86 16 114/75 96 04/23/22 10:38 04/23/22 07:47 97.5 F L 90 17 133/80 96 04/23/22 06:10 90 04/23/22 02:30 98.4 F 88 18 130/77 96 O2 Del Method 04/23/22 10:56 Room Air 04/23/22 10:38 Room Air 04/23/22 07:47 Room Air 04/23/22 06:10 04/23/22 02:30 Room Air PG Care Time/CCT Total # of Minutes Spent Total Time Spent with Patient: Total time spent is greater than 50% in coordination of care (as documented) at patient's floor/unit and/or counseling patient: Coding Level of Care Code 69015 Subseq Hosp Care Lvl 2 Diagnoses DVT (deep venous thrombosis) I82.409 Acute renal failure N17.9 Perforated bowel K63.1 Colonic stricture K56.699 Malnutrition E46 Hypertension I10 Hypertension type: essential hypertension Atrial flutter I48.3 Atrial flutter type: typical Depression F32.9 Delirium R41.0 Oral candidiasis B37.0 Time Spent (min) 35 (1) Hypertension Hypertension type: essential hypertension Qualified Code(s): I10 - Essential (primary) hypertension (2) Atrial flutter Atrial flutter type: typical Qualified Code(s): I48.3 - Typical atrial flutter
[2022-04-23] MEDS: MELATONIN 3 MG TAB PO SCH (22:03)
[2022-04-24] MEDS: FIRST - Mouthwash BLM 119 ML PO SCH ×4 (05:35→21:31)
[2022-04-24 06:45] LABS: BUN Creatinine Ratio 18.5 (10-20); Calcium 8.9 mg/dl (8.5-10.1); Creatinine Clr Calc Pharmacy 19.9 ml/min; Est GFR (African American) 24.9 ml/min; Est GFR (Non-African American) 21.5 ml/min; Potassium 4.3 mmol/L (3.5-5.1)
[2022-04-24] MEDS: PANTOprazole 40 MG TAB PO SCH (08:13)
[2022-04-24] MEDS: NYSTATIN SUSP 500,000 U/5 ML UDC PO SCH ×4 (08:13→21:32)
[2022-04-24] MEDS: ALFUZOSIN HCL 10 MG TAB PO SCH (08:13)
[2022-04-24] MEDS: METOPROLOL TARTRATE 50 MG TAB PO SCH ×2 (08:13→21:30)
[2022-04-24] MEDS: APIXABAN 5 MG TABLET PO SCH ×2 (08:13→21:29)
--- NOTE | 2022-04-24 08:23 | Nephrology Progress Note ---
Date of Service April 24, 2022 Assessment & Plan (1) Acute renal failure: Plan: * VIMAL - hemodynamically medicated ATN at the time of surgery. Patient has been nonoliguric and initially recovered. Cr again trending up. Lozoya catheter has been removed * Patient denies difficulty voiding. He was able to void 150 cc this am. PVR 0 cc. No need to reinsert Lozoya catheter * Physical exam reveals dry mucous membranes and poor skin turgor. Ostomy is draining liquid stool. PT notes indicate that therapy was stopped early two days ago due to orthostasis. Clinically suspect dehydration related to ostomy losses * Only potential nephrotoxic medication is Pantoprazole * Recommend d/c Pantoprazole, increase 0.9NS to 125 cc/hr * Will order urine Na, creatinine and orthostatic vitals * Monitor PRP * Consider discussion w/ surgery regarding strategies to limit GI fluid loss (2) Anastomotic leak of intestine: Plan: * Sigmoidectomy 03/26 for stricture complicated by anastomotic leak requiring emergent laparotomy with diverting ileostomy 03/29. (3) DVT (deep venous thrombosis): Plan: * Currently on apixaban Admission and Anticipated Discharge Date Admission Date: March 26, 2022 Subjective I was asked to reassess Mr. Desir this morning due to recurrent VIMAL. Mr. Desir was alert but weak. He reports orthostasis that has limited his participation in PT. He denies difficulty voiding. PVR by staff command and control officer this am reveals UO 150 cc, PVR 0 Review of Systems Constitutional: + weakness; no fever Eyes: no problem reported Ear, Nose, Mouth, Throat: no problem reported Respiratory: no cough and no dyspnea Cardiovascular: no chest pain, no palpitations and no edema Gastrointestinal: no abdominal pain Physical Exam Constitutional: + frail appearing Eyes: PERRL, conjunctivae normal, anicteric sclerae ENMT: external ear and nose normal, oropharynx normal Neck: trachea midline, no thyromegaly Respiratory: normal respiratory effort, lungs clear to auscultation Cardiovascular: RRR, no murmur, no edema Gastrointestinal (Abdomen): Inspection/Auscultation: normal bowel sounds Percussion/Palpation: abdomen soft; abdomen nontender Skin: no rashes, warm and dry Neurologic: awake Results & Data ([place]) Vital Signs (Past 12 Hours) Vital Signs Temp Pulse Pulse Pulse Resp BP Pulse Ox 04/24/22 07:52 36.5 C 83 18 151/81 H 96 04/24/22 04:50 36.5 C 81 18 118/72 95 04/23/22 22:30 97 H 04/23/22 22:00 36.7 C 99 H 18 129/73 96 O2 Del Method 04/24/22 07:52 Room Air 04/24/22 04:50 Room Air 04/23/22 22:30 04/23/22 22:00 Room Air Laboratory Results Laboratory Tests 04/23/22 04/24/22 06:33 05:27 WBC 4.34 L Hgb 11.7 L Hct 36.0 L Plt Count 307 Sodium 139 Potassium 4.3 Chloride 106 Carbon Dioxide 25 BUN 47 H Creatinine 2.54 H D Glucose 125 H Calcium 8.9 PG Care Time/CCT Total # of Minutes Spent Total Time Spent with Patient: Total time spent is greater than 50% in coordination of care (as documented) at patient's floor/unit and/or counseling patient: Coding Level of Care Code 76173 Subseq Hosp Care Lvl 3 Diagnoses Acute renal failure N17.9 Anastomotic leak of intestine K91.89 DVT (deep venous thrombosis) I82.409
[2022-04-24] MEDS: SODIUM CHLORIDE 0.9% 1000ML 1,000 ML IV SCH ×2 (10:09→18:47)
--- NOTE | 2022-04-24 12:42 | Surgery Progress Note ---
Date of Service April 24, 2022 Assessment & Plan (1) Anastomotic leak of intestine: Plan: No acute surgical issues. Medicine managing his acute on chronic renal failure. Stoma functioning. Awaiting placement. Dr. Mata covering over the weekend if any issues. Admission and Anticipated Discharge Date Admission Date: March 26, 2022 Subjective Patient seen. Awake and alert. Oriented to person. Still somewhat confused. Difficult to communicate/poor historian currently. Physical Exam Physical Exam: Alert. No acute distress Abdomen is soft. Midline incision well-healed. Stoma functioning with loose brown stool. Results & Data ([facility]) Vital Signs (Past 12 Hours) Vital Signs Temp Pulse Pulse Pulse Resp BP Pulse Ox 04/24/22 12:26 36.6 C 81 18 119/73 95 04/24/22 11:00 04/24/22 10:01 77 04/24/22 08:00 04/24/22 07:52 36.5 C 83 18 151/81 H 96 04/24/22 04:50 36.5 C 81 18 118/72 95 O2 Del Method 04/24/22 12:26 Room Air 04/24/22 11:00 Room Air 04/24/22 10:01 04/24/22 08:00 Room Air 04/24/22 07:52 Room Air 04/24/22 04:50 Room Air PG Care Time/CCT Total # of Minutes Spent Total Time Spent with Patient: Total time spent is greater than 50% in coordination of care (as documented) at patient's floor/unit and/or counseling patient: Coding Level of Care Code None Diagnoses Anastomotic leak of intestine K91.89
[2022-04-24] MEDS ORDERED: STAT IV STA (12:46)
--- NOTE | 2022-04-24 13:20 | Hospitalist Progress Note ---
Date of Service April 24, 2022 Assessment & Plan (1) DVT (deep venous thrombosis): Plan: Acute DVT which is new this admission. Initially on heparin, has been transitioned to Apixaban 2.5mg BID (2) Acute renal failure: Plan: Renal function improved initially, but has now declined again Likely due to dehydration, patient not eating and drinking enough and also high output from ostomy NS now at 125cc/hr Cholestyramine 4g TID per surgery to help curb ostomy output appreciate nephrology recs (3) Perforated bowel: Plan: S/p 03/29 for exp lap converted to laparotomy with repair of perforation and diverting ileostomy - VONNIE drains have been removed by surgery. -Ileostomy function is now normal. 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 Castro on 03/26/2022 with interval development of perforated bowel on 03/29 (5) Malnutrition: Plan: Moderate malnutrition due to poor oral intake will supplement with Boost TID (6) Hypertension: Plan: BP under good control Lisinopril and hydrochlorothiazide now on hold due to acute kidney injury. Metoprolol tartrate dosage uptitrated to 50 mg p.o. twice daily Hydralazine ordered as needed -no doses given Continue with vital signs per protocol (7) Atrial flutter: Plan: Patient has a history of atrial flutter managed by Dr. Flores at [facility] cardiology. On metoprolol and Apixaban (8) Depression: Plan: Continue Celexa (9) Delirium: Plan: No change Unsure of baseline. (10) Oral candidiasis: Plan: Identified on physical examination 04/18/2022 Patient started on nystatin swish and swallow Continue to follow clinically Plan Patient was denied for acute rehab, even after peer to peer. Will likely go to SNF when accepted Admission and Anticipated Discharge Date Admission Date: March 26, 2022 Subjective patient seen and examined, no new complaints Review of Systems Review of Systems: All systems reviewed are negative, apart from the ones contained in the history. Physical Exam Physical Exam: The patient is awake, alert and oriented 3, well developed and well nourished, normocephalic and atraumatic, lying in bed and in no acute distress. HEENT--PERRL, EOMI, mucous membranes and oropharynx mildly dry Neck--supple. No JVD. No bruits. Thyroid normal, trachea midline, no adenopathy. Heart--normal S1 and S2. No murmurs, rubs or gallops. Lungs--clear bilaterally, no respiratory distress, no accessory muscle use. Abdomen--colostomy in situ Extremities--no cyanosis or clubbing. No edema. Dermatologic--normal skin turgor, normal color, no abnormal lymph nodes, no rash. Neurologic--cranial nerves II through XII grossly intact. Rheumatologic--normal range of motion. Psychiatric--normal affect. Results & Data Results & Data ([facility]) Vital Signs (Past 12 Hours) Vital Signs Temp Pulse Pulse Pulse Resp BP Pulse Ox 04/24/22 12:26 97.9 F 81 18 119/73 95 04/24/22 11:00 04/24/22 10:01 77 04/24/22 08:00 04/24/22 07:52 97.7 F 83 18 151/81 H 96 04/24/22 04:50 97.7 F 81 18 118/72 95 O2 Del Method 04/24/22 12:26 Room Air 04/24/22 11:00 Room Air 04/24/22 10:01 04/24/22 08:00 Room Air 04/24/22 07:52 Room Air 04/24/22 04:50 Room Air PG Care Time/CCT Total # of Minutes Spent Total Time Spent with Patient: Total time spent is greater than 50% in coordination of care (as documented) at patient's floor/unit and/or counseling patient: Coding Level of Care Code 80679 Subseq Hosp Care Lvl 2 Diagnoses DVT (deep venous thrombosis) I82.409 Acute renal failure N17.9 Perforated bowel K63.1 Colonic stricture K56.699 Malnutrition E46 Hypertension I10 Hypertension type: essential hypertension Atrial flutter I48.3 Atrial flutter type: typical Depression F32.9 Delirium R41.0 Oral candidiasis B37.0 Time Spent (min) 35 (1) Hypertension Hypertension type: essential hypertension Qualified Code(s): I10 - Essential (primary) hypertension (2) Atrial flutter Atrial flutter type: typical Qualified Code(s): I48.3 - Typical atrial flutter
[2022-04-24] MEDS: OCTREOTIDE ACETATE 500 MCG in DEXTROSE 5% 100 ML IV SCH (13:36)
[2022-04-24] MEDS ORDERED: CHOLESTYRAMINE LIGHT 4 GM PKT PO SCH (14:00)
[2022-04-24 19:00] LABS: Appearance Urine Clear (Clear); Bacteria Urine Automated Negative (Negative); Bilirubin Urine Negative (Negative); Blood Urine 1+ (Negative); Color Urine Dark Yellow; Glucose Urine UA Negative (Negative); Ketones Urine Negative (Negative); Leukocyte Esterase Urine Negative (Negative); Nitrite Urine Negative (Negative); Protein Urine Trace (Negative); RBC Urine Automated 0-4 /hpf (0-4); Specific Gravity Urine 1.019 (1.000-1.030); Urobilinogen Urine Negative (Negative)
[2022-04-24 19:57] LABS: Creatinine Urine Random 198.2 mg/dl
[2022-04-24] MEDS: MELATONIN 3 MG TAB PO SCH (21:29)
[2022-04-25] MEDS: SODIUM CHLORIDE 0.9% 1000ML 1,000 ML IV SCH ×3 (02:39→19:05)
[2022-04-25] MEDS: FIRST - Mouthwash BLM 119 ML PO SCH ×4 (04:31→21:51)
[2022-04-25 07:56] LABS: BUN Creatinine Ratio 17.3 (10-20); Calcium 8.2 mg/dl (8.5-10.1); Creatinine Clr Calc Pharmacy 23.1 ml/min; Est GFR (African American) 30.7 ml/min; Est GFR (Non-African American) 26.5 ml/min; Potassium 4.4 mmol/L (3.5-5.1)
[2022-04-25] MEDS: ALFUZOSIN HCL 10 MG TAB PO SCH (09:08)
[2022-04-25] MEDS: APIXABAN 5 MG TABLET PO SCH ×2 (09:08→20:32)
[2022-04-25] MEDS: NYSTATIN SUSP 500,000 U/5 ML UDC PO SCH ×4 (09:09→20:32)
[2022-04-25] MEDS: METOPROLOL TARTRATE 50 MG TAB PO SCH ×2 (09:09→20:32)
[2022-04-25] MEDS: OCTREOTIDE ACETATE 500 MCG in DEXTROSE 5% 100 ML IV SCH ×3 (09:28→19:30)
--- NOTE | 2022-04-25 11:52 | Nephrology Progress Note ---
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 Postoperative course was complicated by anastomotic perforation and emergency laparotomy, diverting ileostomy on 03/29/2022. Developed VIMAL postoperatively, creatinine peaked to 3.3 but rapidly improved. however, since then has been having repeated episodes of AK I went over IV fluid was stopped with volume depletion secondary to high ostomy output. Currently on IV fluid and he creatinine again improved to 1.8. Considering high ostomy output octreotide was started to help with decreasing the output. Blood pressure fair. Continuing on IV normal saline as p.o. intake remains poor, renal function continues to improve, creatinine down to 1.7, electrolyte acceptable. overall doing better but p.o. intake remains poor. --Recommend decreasing the IV fluid rate to 80 ml/h and encourage p.o. intake as overall he is feeling about doing much better p.o. intake has been slowly improving. If ostomy output decrease, would stop IV fluid. -- Avoid all NSAIDs and other nephrotoxic medications, dose medications for eGFR less than 30. -- monitor renal function electrolyte closely, accurate intake and output Will follow Admission and Anticipated Discharge Date Admission Date: March 26, 2022 Chevy Betancourt was seen and evaluated in his room this morning, with daughter Nancy at bedside. He has been doing well, tolerating regular diet, otherwise asymptomatic. Hoarseness of voice improving VIMAL resolving, Cr down to 1.8 Blood pressure fair. Has been having decent urine output. Continues to have high ostomy output, on Octreotide. Review of Systems Review of Systems: All systems reviewed are negative, apart from the ones contained in the history. Physical Exam Constitutional: WD/WN, vitals as above no acute distress Respiratory: Auscultation: + crackles; no wheezes Cardiovascular: Rate/Rhythm: regular rate and regular rhythm Extremities: no edema Skin: no rashes Neurologic: no focal motor deficits Psychiatric: Orientation: alert and oriented x 3 Affect: euthymic affect Results & Data ([facility]) Vital Signs (Past 12 Hours) Vital Signs Temp Pulse Pulse Resp BP Pulse Ox O2 Del Method 04/25/22 08:14 36.8 C 73 17 145/72 H 95 Room Air 04/25/22 07:33 Room Air 04/25/22 03:00 36.9 C 76 18 131/57 L 94 04/24/22 23:55 36.4 C L 82 18 118/67 91 PG Care Time/CCT Total # of Minutes Spent Total Time Spent with Patient: Total time spent is greater than 50% in coordination of care (as documented) at patient's floor/unit and/or counseling patient: Coding Level of Care Code 96167 Subseq Hosp Care Lvl 3 Diagnoses Acute renal failure N17.9 Hypertension I10 Hypertension type: essential hypertension (1) Hypertension Hypertension type: essential hypertension Qualified Code(s): I10 - Essential (primary) hypertension
--- NOTE | 2022-04-25 13:37 | Surgery Progress Note ---
Date of Service April 25, 2022 Assessment & Plan (1) History of intestinal surgery: Plan: Patient doing well. Increasing p.o. intake. Continue PT/OT therapy. Probable placement early next week. 04/25/2022, 1:[address] junior doing fine, stable, continue treatment, will F/U, Admission and Anticipated Discharge Date Admission Date: March 26, 2022 Supervising Physician Co-Signing Physician Notes Dr. Barnes evidence of obstruction or intra-abdominal infection-does have watery ileostomy output His potassium is normal, creatinine is improved significantly-adequate urine output Continue to encourage p.o. intake. Chevy Betancourt was seen and evaluated in his room this morning, with daughter Nancy at bedside. He has been doing well, tolerating regular diet, otherwise asymptomatic. Hoarseness of voice improving VIMAL resolving, Cr down to 1.8 Blood pressure fair. Has been having decent urine output. Continues to have high ostomy output, on Octreotide. 04/25/2022 1:34PM, Dr. Junior pt is stable, no abdominal pain, no fever, Physical Exam Constitutional: WD/WN, vitals as above Eyes: PERRL, conjunctivae normal, anicteric sclerae Neck: trachea midline, no thyromegaly Respiratory: normal respiratory effort, lungs clear to auscultation Cardiovascular: RRR, no murmur, no edema Gastrointestinal (Abdomen): soft, NT,ND, BS + stoma working, Neurologic: patellar DTR's 2+ bilat, sensation intact Psychiatric: A+Ox3, euthymic affect Results & Data ([facility]) Vital Signs (Past 12 Hours) Vital Signs Temp Pulse Pulse Resp BP Pulse Ox O2 Del Method 04/25/22 11:52 36.5 C 71 18 111/67 95 Room Air 04/25/22 08:14 36.8 C 73 17 145/72 H 95 Room Air 04/25/22 07:33 Room Air 04/25/22 03:00 36.9 C 76 18 131/57 L 94 Laboratory Results Abnormal lab results 04/24/22 04/25/22 Range/Units Unknown 07:14 Chloride 109 H (98-107) mmol/L BUN 37 H (6-23) mg/dl Creatinine 2.14 H D (0.6-1.4) mg/dl Glucose 140 H (70-99(Fasting)) mg/dl Calcium 8.2 L (8.5-10.1) mg/dl Urine Protein Trace H (Negative) Urine Blood 1+ H (Negative) U Hyaline Cast (Auto) 10-30 H (0-5) /lpf U Epithel Cells (Auto) 10-20 H (0-5) /lpf Other Crystals Hippuric Acid A (None Prsent)
--- NOTE | 2022-04-25 13:44 | Hospitalist Progress Note ---
Date of Service April 25, 2022 Assessment & Plan (1) DVT (deep venous thrombosis): Plan: Acute DVT which is new this admission. Currently on Apixaban 2.5mg BID (2) Acute renal failure: Plan: Likely due to dehydration, patient not eating and drinking enough and also high output from ostomy NS now at 125cc/hr, some improvement, Cr 2.14 today, was 2.54 yesterday Octreotide per surgery to help curb ostomy output appreciate nephrology recs (3) Perforated bowel: Plan: S/p 03/29 for exp lap converted to laparotomy with repair of perforation and diverting ileostomy - VONNIE drains have been removed by surgery. -Ileostomy function is now normal. 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 Castro on 03/26/2022 with interval development of perforated bowel on 03/29 (5) Malnutrition: Plan: Moderate malnutrition due to poor oral intake will supplement with Boost TID (6) Hypertension: Plan: BP under good control Lisinopril and hydrochlorothiazide now on hold due to acute kidney injury. Metoprolol tartrate dosage uptitrated to 50 mg p.o. twice daily Hydralazine ordered as needed -no doses given Continue with vital signs per protocol (7) Atrial flutter: Plan: Patient has a history of atrial flutter managed by Dr. Flores at [facility] cardiology. On metoprolol and Apixaban (8) Depression: Plan: Continue Celexa (9) Delirium: Plan: No change Unsure of baseline. (10) Oral candidiasis: Plan: Identified on physical examination 04/18/2022 Patient started on nystatin swish and swallow Continue to follow clinically Plan Patient was denied for acute rehab, even after peer to peer. Will likely go to SNF when accepted Admission and Anticipated Discharge Date Admission Date: March 26, 2022 Subjective patient seen and examined, sitting up in the bed, denies any chest pain or SOB, hoarseness improving Review of Systems Review of Systems: All systems reviewed are negative, apart from the ones contained in the history. Physical Exam Physical Exam: The patient is awake, alert and oriented 3, well developed and well nourished, normocephalic and atraumatic, lying in bed and in no acute distress. HEENT--PERRL, EOMI, mucous membranes and oropharynx mildly dry Neck--supple. No JVD. No bruits. Thyroid normal, trachea midline, no adenopathy. Heart--normal S1 and S2. No murmurs, rubs or gallops. Lungs--clear bilaterally, no respiratory distress, no accessory muscle use. Abdomen--colostomy in situ Extremities--no cyanosis or clubbing. No edema. Dermatologic--normal skin turgor, normal color, no abnormal lymph nodes, no rash. Neurologic--cranial nerves II through XII grossly intact. Rheumatologic--normal range of motion. Psychiatric--normal affect. Results & Data Results & Data ([facility]) Vital Signs (Past 12 Hours) Vital Signs Temp Pulse Pulse Resp BP Pulse Ox O2 Del Method 04/25/22 11:52 97.7 F 71 18 111/67 95 Room Air 04/25/22 08:14 98.2 F 73 17 145/72 H 95 Room Air 04/25/22 07:33 Room Air 04/25/22 03:00 98.4 F 76 18 131/57 L 94 PG Care Time/CCT Total # of Minutes Spent Total Time Spent with Patient: Total time spent is greater than 50% in coordination of care (as documented) at patient's floor/unit and/or counseling patient: Coding Level of Care Code 00658 Subseq Hosp Care Lvl 2 Diagnoses DVT (deep venous thrombosis) I82.409 Acute renal failure N17.9 Perforated bowel K63.1 Colonic stricture K56.699 Malnutrition E46 Hypertension I10 Hypertension type: essential hypertension Atrial flutter I48.3 Atrial flutter type: typical Depression F32.9 Delirium R41.0 Oral candidiasis B37.0 Time Spent (min) 35 (1) Hypertension Hypertension type: essential hypertension Qualified Code(s): I10 - Essential (primary) hypertension (2) Atrial flutter Atrial flutter type: typical Qualified Code(s): I48.3 - Typical atrial flutter
[2022-04-25] MEDS: MELATONIN 3 MG TAB PO SCH (20:31)
[2022-04-26] MEDS: SODIUM CHLORIDE 0.9% 1000ML 1,000 ML IV SCH ×3 (03:13→19:54)
[2022-04-26] MEDS: FIRST - Mouthwash BLM 119 ML PO SCH ×4 (04:58→21:52)
[2022-04-26] MEDS: OCTREOTIDE ACETATE 500 MCG in DEXTROSE 5% 100 ML IV SCH ×2 (05:35→15:36)
[2022-04-26] MEDS: NYSTATIN SUSP 500,000 U/5 ML UDC PO SCH ×4 (07:54→19:55)
[2022-04-26] MEDS: METOPROLOL TARTRATE 50 MG TAB PO SCH ×2 (07:54→19:55)
[2022-04-26] MEDS: APIXABAN 5 MG TABLET PO SCH ×2 (07:54→19:55)
[2022-04-26] MEDS: ALFUZOSIN HCL 10 MG TAB PO SCH (07:54)
[2022-04-26 08:03] LABS: BUN Creatinine Ratio 15.7 (10-20); Est GFR (Non-African American) 34.5 ml/min; Potassium 4.1 mmol/L (3.5-5.1)
--- NOTE | 2022-04-26 10:43 | Nephrology Progress Note ---
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 Postoperative course was complicated by anastomotic perforation and emergency laparotomy, diverting ileostomy on 03/29/2022. Developed VIMAL postoperatively, creatinine peaked to 3.3 but rapidly improved. however, since then has been having repeated episodes of AK I went over IV fluid was stopped with volume depletion secondary to high ostomy output. Currently on IV fluid and he creatinine again improved to 1.8. Considering high ostomy output octreotide was started to help with decreasing the output. Blood pressure variable, occasionally high, on IV normal saline, renal function continues to improve, creatinine down to 1.6, electrolyte acceptable. overall doing better. -- encourage p.o. intake as overall he is feeling about doing much better p.o. intake has been slowly improving. Recommend decreasing IV fluid. -- Avoid all NSAIDs and other nephrotoxic medications, dose medications for eGFR less than 30. -- monitor renal function electrolyte closely, accurate intake and output Will follow Admission and Anticipated Discharge Date Admission Date: March 26, 2022 Chevy Betancourt was seen and evaluated in his room this morning. He has been doing well, tolerating regular diet, otherwise asymptomatic. Hoarseness of voice improving VIMAL resolving, Cr down to 1.6, Blood pressure variable. Has been having decent urine output. on Octreotide. Review of Systems Review of Systems: All systems reviewed are negative, apart from the ones contained in the history. Physical Exam Constitutional: WD/WN, vitals as above no acute distress Eyes: + anicteric sclerae Neck: normal visual inspection Respiratory: normal respiratory effort; no respiratory distress Auscultation: + crackles; no wheezes Cardiovascular: Rate/Rhythm: regular rate and regular rhythm Extremities: no edema Skin: no rashes Neurologic: no focal motor deficits Psychiatric: Orientation: alert and oriented x 3 Affect: euthymic affect Results & Data ([facility]) Vital Signs (Past 12 Hours) Vital Signs Temp Pulse Pulse Resp BP Pulse Ox O2 Del Method 04/26/22 08:23 37.0 C 76 21 162/65 H 94 Room Air 04/26/22 03:00 36.7 C 67 16 127/67 92 Room Air 04/25/22 23:00 36.4 C L 73 16 160/70 H 94 Room Air 04/25/22 23:00 36.4 C L 73 18 160/70 H 94 Room Air PG Care Time/CCT Total # of Minutes Spent Total Time Spent with Patient: Total time spent is greater than 50% in coordination of care (as documented) at patient's floor/unit and/or counseling patient: Coding Level of Care Code 27560 Subseq Hosp Care Lvl 3 Diagnoses Acute renal failure N17.9 Hypertension I10 Hypertension type: essential hypertension (1) Hypertension Hypertension type: essential hypertension Qualified Code(s): I10 - Essential (primary) hypertension
--- NOTE | 2022-04-26 12:23 | Surgery Progress Note ---
Date of Service April 26, 2022 Assessment & Plan (1) History of intestinal surgery: Plan: Patient doing well. Increasing p.o. intake. Continue PT/OT therapy. Probable placement early next week. 04/25/2022, 1:[address] junior doing fine, stable, continue treatment, will F/U, 04/26/2022, 12:[address] Junior doing fine, stable, continue treatment, will F/U, Admission and Anticipated Discharge Date Admission Date: March 26, 2022 Supervising Physician Co-Signing Physician Notes Dr. Barnes evidence of obstruction or intra-abdominal infection-does have watery ileostomy output His potassium is normal, creatinine is improved significantly-adequate urine output Continue to encourage p.o. intake. Chevy Betancourt was seen and evaluated in his room this morning. He has been doing well, tolerating regular diet, otherwise asymptomatic. Hoarseness of voice improving VIMAL resolving, Cr down to 1.6, Blood pressure variable. Has been having decent urine output. on Octreotide. 04/26/2022 12:21PM, Dr. Junior pt is stable, no abdominal pain, no fever,tolerated diet, no nausea, no vomiting, no fever, Physical Exam Constitutional: WD/WN, vitals as above Eyes: PERRL, conjunctivae normal, anicteric sclerae Neck: trachea midline, no thyromegaly Respiratory: normal respiratory effort, lungs clear to auscultation Cardiovascular: RRR, no murmur, no edema Neurologic: patellar DTR's 2+ bilat, sensation intact Psychiatric: A+Ox3, euthymic affect Results & Data ([facility]) Vital Signs (Past 12 Hours) Vital Signs Temp Pulse Resp BP Pulse Ox O2 Del Method 04/26/22 11:40 36.5 C 74 19 158/65 H 97 Room Air 04/26/22 08:23 37.0 C 76 21 162/65 H 94 Room Air 04/26/22 03:00 36.7 C 67 16 127/67 92 Room Air Laboratory Results Abnormal lab results 04/26/22 Range/Units 06:42 Chloride 111 H (98-107) mmol/L BUN 27 H (6-23) mg/dl Creatinine 1.72 H D (0.6-1.4) mg/dl Glucose 133 H (70-99(Fasting)) mg/dl Calcium 8.0 L (8.5-10.1) mg/dl
--- NOTE | 2022-04-26 13:16 | Hospitalist Progress Note ---
Date of Service April 26, 2022 Assessment & Plan (1) DVT (deep venous thrombosis): Plan: Acute DVT which is new this admission. Currently on Apixaban 2.5mg BID (2) Acute renal failure: Plan: Likely due to dehydration, patient not eating and drinking enough and also high output from ostomy NS now at 125cc/hr, renal function continues to improve Octreotide per surgery to help curb ostomy output appreciate nephrology recs (3) Perforated bowel: Plan: S/p 03/29 for exp lap converted to laparotomy with repair of perforation and d iverting ileostomy - VONNIE drains have been removed by surgery. -Ileostomy function is now normal. 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 Castro on 03/26/2022 with interval development of perforated bowel on 03/29 (5) Malnutrition: Plan: Moderate malnutrition due to poor oral intake will supplement with Boost TID (6) Hypertension: Plan: BP under good control Lisinopril and hydrochlorothiazide now on hold due to acute kidney injury. Metoprolol tartrate dosage uptitrated to 50 mg p.o. twice daily Hydralazine ordered as needed -no doses given Continue with vital signs per protocol (7) Atrial flutter: Plan: Patient has a history of atrial flutter managed by Dr. Flores at [facility] cardiology. On metoprolol and Apixaban (8) Depression: Plan: Continue Celexa (9) Delirium: Plan: No change Unsure of baseline. (10) Oral candidiasis: Plan: Identified on physical examination 04/18/2022 Patient started on nystatin swish and swallow Continue to follow clinically Plan Patient was denied for acute rehab, even after peer to peer. Will likely go to SNF when accepted Admission and Anticipated Discharge Date Admission Date: March 26, 2022 Subjective patient seen and examined, no new complaints, denies chest pain or SOB Review of Systems Review of Systems: All systems reviewed are negative, apart from the ones contained in the history. Physical Exam Physical Exam: The patient is awake, alert and oriented 3, well developed and well nourished, normocephalic and atraumatic, lying in bed and in no acute distress. HEENT--PERRL, EOMI, mucous membranes and oropharynx mildly dry Neck--supple. No JVD. No bruits. Thyroid normal, trachea midline, no adenopathy. Heart--normal S1 and S2. No murmurs, rubs or gallops. Lungs--clear bilaterally, no respiratory distress, no accessory muscle use. Abdomen--colostomy in situ Extremities--no cyanosis or clubbing. No edema. Dermatologic--normal skin turgor, normal color, no abnormal lymph nodes, no rash. Neurologic--cranial nerves II through XII grossly intact. Rheumatologic--normal range of motion. Psychiatric--normal affect. Results & Data Results & Data ([facility]) Vital Signs (Past 12 Hours) Vital Signs Temp Pulse Resp BP Pulse Ox O2 Del Method 04/26/22 11:40 97.7 F 74 19 158/65 H 97 Room Air 04/26/22 08:23 98.6 F 76 21 162/65 H 94 Room Air 04/26/22 03:00 98.1 F 67 16 127/67 92 Room Air PG Care Time/CCT Total # of Minutes Spent Total Time Spent with Patient: Total time spent is greater than 50% in coordination of care (as documented) at patient's floor/unit and/or counseling patient: Coding Level of Care Code 83893 Subseq Hosp Care Lvl 2 Diagnoses DVT (deep venous thrombosis) I82.409 Acute renal failure N17.9 Perforated bowel K63.1 Colonic stricture K56.699 Malnutrition E46 Hypertension I10 Hypertension type: essential hypertension Atrial flutter I48.3 Atrial flutter type: typical Depression F32.9 Delirium R41.0 Oral candidiasis B37.0 Time Spent (min) 35 (1) Hypertension Hypertension type: essential hypertension Qualified Code(s): I10 - Essential (primary) hypertension (2) Atrial flutter Atrial flutter type: typical Qualified Code(s): I48.3 - Typical atrial flutter
[2022-04-26] MEDS: MELATONIN 3 MG TAB PO SCH (19:56)
[2022-04-27] MEDS: OCTREOTIDE ACETATE 500 MCG in DEXTROSE 5% 100 ML IV SCH ×3 (02:38→20:58)
[2022-04-27] MEDS: SODIUM CHLORIDE 0.9% 1000ML 1,000 ML IV SCH ×3 (02:38→21:00)
[2022-04-27] MEDS: FIRST - Mouthwash BLM 119 ML PO SCH ×4 (04:10→21:18)
[2022-04-27 06:54] LABS: BUN Creatinine Ratio 12.5 (10-20); Calcium 7.9 mg/dl (8.5-10.1); Creatinine Clr Calc Pharmacy 33.2 ml/min; Est GFR (African American) 46.1 ml/min; Est GFR (Non-African American) 39.8 ml/min; Potassium 4.1 mmol/L (3.5-5.1)
--- NOTE | 2022-04-27 08:14 | Surgery Progress Note ---
Date of Service April 27, 2022 Assessment & Plan (1) Colonic stricture: Plan: POD 29/32 ostomy output decreased creatine improved awaiting placement continue PT/OT Admission and Anticipated Discharge Date Admission Date: March 26, 2022 Subjective no new issues over the weekend Physical Exam 2 Gastrointestinal (Abdomen): Inspection/Auscultation: abdomen not distended Percussion/Palpation: abdomen soft Results & Data ([facility]) Vital Signs (Past 12 Hours) Vital Signs Temp Pulse Resp BP Pulse Ox O2 Del Method 04/27/22 07:37 36.6 C 70 18 165/65 H 93 Room Air 04/27/22 03:00 36.7 C 63 16 164/75 H 93 04/26/22 23:00 36.8 C 72 16 146/62 H 96 PG Care Time/CCT Total # of Minutes Spent Total Time Spent with Patient: Total time spent is greater than 50% in coordination of care (as documented) at patient's floor/unit and/or counseling patient: Coding Level of Care Code None Diagnoses Colonic stricture K56.699
[2022-04-27] MEDS: METOPROLOL TARTRATE 50 MG TAB PO SCH ×2 (08:21→20:16)
[2022-04-27] MEDS: APIXABAN 5 MG TABLET PO SCH ×2 (08:21→20:15)
[2022-04-27] MEDS: NYSTATIN SUSP 500,000 U/5 ML UDC PO SCH ×4 (08:21→20:16)
[2022-04-27] MEDS: ALFUZOSIN HCL 10 MG TAB PO SCH (08:21)
--- NOTE | 2022-04-27 10:32 | Nephrology Progress Note ---
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 Postoperative course was complicated by anastomotic perforation and emergency laparotomy, diverting ileostomy on 03/29/2022. Developed VIMAL postoperatively, creatinine peaked to 3.3 but rapidly improved. however, since then has been having repeated episodes of AK I went over IV fluid was stopped with volume depletion secondary to high ostomy output. Currently on IV fluid and he creatinine again improved to 1.8. Considering high ostomy output octreotide was started to help with decreasing the output. Blood pressure variable, occasionally high, on IV normal saline, renal function continues to improve, creatinine down to 1.5, electrolyte acceptable. overall doing better. -- encourage p.o. intake as overall he is feeling about doing much better p.o. intake has been slowly improving. Recommend decreasing IV fluid And if renal function continues to improve, okay to discontinue IV fluid. -- Avoid all NSAIDs and other nephrotoxic medications, dose medications for eGFR less than 30. -- monitor renal function electrolyte closely, accurate intake and output Will sign off, please contact if any other concern or questions. Thank you for the consult. Admission and Anticipated Discharge Date Admission Date: March 26, 2022 Chevy Betancourt was seen and evaluated in his room this morning. He has been doing well, tolerating regular diet, otherwise asymptomatic. Hoarseness of voice improving. Renal function continues to improve, Cr down to 1.5, Blood pressure variable. Has been having decent urine output, net positive more than 500 mL. Review of Systems Review of Systems: All systems reviewed are negative, apart from the ones contained in the history. Physical Exam Constitutional: WD/WN, vitals as above + ill appearing; no acute distress Eyes: + anicteric sclerae Respiratory: Auscultation: + crackles; no wheezes Cardiovascular: Rate/Rhythm: regular rate and regular rhythm Extremities: no edema Skin: no rashes Neurologic: no focal motor deficits Psychiatric: Orientation: alert and oriented x 3 Affect: euthymic affect Results & Data ([facility]) Vital Signs (Past 12 Hours) Vital Signs Temp Pulse Resp BP Pulse Ox O2 Del Method 04/27/22 07:37 36.6 C 70 18 165/65 H 93 Room Air 04/27/22 03:00 36.7 C 63 16 164/75 H 93 04/26/22 23:00 36.8 C 72 16 146/62 H 96 PG Care Time/CCT Total # of Minutes Spent Total Time Spent with Patient: Total time spent is greater than 50% in coordination of care (as documented) at patient's floor/unit and/or counseling patient: Coding Level of Care Code 73785 Subseq Hosp Care Lvl 2 Diagnoses Acute renal failure N17.9 Hypertension I10 Hypertension type: essential hypertension (1) Hypertension Hypertension type: essential hypertension Qualified Code(s): I10 - Essential (primary) hypertension
--- NOTE | 2022-04-27 15:42 | Hospitalist Progress Note ---
Date of Service April 27, 2022 Assessment & Plan (1) DVT (deep venous thrombosis): Plan: Acute DVT which is new this admission. on Apixaban DVT dosing (2) Acute renal failure: Plan: Improving, cut back IV fluid and observe, noted octreotide (3) Perforated bowel: Plan: S/p 03/29 for exp lap converted to laparotomy with repair of perforation and diverting ileostomy - VONNIE drains have been removed by surgery. -Ileostomy function is now normal. 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 Castro on 03/26/2022 with interval development of perforated bowel on 03/29 (5) Malnutrition: Plan: Moderate malnutrition due to poor oral intake will supplement with Boost TID (6) Hypertension: Plan: BP acceptable, saline being cut back, observe (7) Atrial flutter: Plan: Patient has a history of atrial flutter managed by Dr. Flores at [facility] cardiology. On metoprolol and Apixaban (8) Depression: Plan: Continue Celexa (9) Delirium: Plan: Stable from this perspectivefollow (10) Oral candidiasis: Plan: Identified on physical examination 04/18/2022 Patient started on nystatin swish and swallow Continue to follow clinically Plan Patient was denied for acute rehab, even after peer to peer. Will likely go to SNF when accepted Admission and Anticipated Discharge Date Admission Date: March 26, 2022 Subjective Follow-up of medical management, acute renal failure, DVTno new issues reported as such Physical Exam Physical Exam: Constitutional and general: sedate ; looks biologic age Head and face: No puffiness, atraumatic Eyes: No scleral icterus, extraocular movements normal Neck: Supple, no JVD Musculoskeletal: No acute joint swelling, no bony abnormalities Skin/dermatologic/integument: No rash, no purpura Hematologic and lymphatic: pallor mild, no petechia Gastrointestinal/abdomen: Nondistended, soft, nonacute Neurologic: Cranial nerves intact, nonfocal Cardiovascular: Heart rhythm regular, no rub, SSM, no gallop Respiratory: Chest movements equal, no use of accessory muscles, no adventitious sounds Results & Data Results & Data ([facility]) Vital Signs (Past 12 Hours) Vital Signs Temp Pulse Resp BP Pulse Ox O2 Del Method 04/27/22 11:40 36.7 C 67 19 145/65 H 97 Room Air 04/27/22 07:37 36.6 C 70 18 165/65 H 93 Room Air Laboratory Results Laboratory Results - last 24 hr 04/27/22 05:37 Sodium 138 Potassium 4.1 Chloride 111 H Carbon Dioxide 23 Anion Gap 4 BUN 19 Creatinine 1.52 H Est Cr Clr Drug Dosing 33.2 Est GFR ( Amer) 46.1 Est GFR (Non-Af Amer) 39.8 BUN/Creatinine Ratio 12.5 Glucose 125 H Calcium 7.9 L PG Care Time/CCT Total # of Minutes Spent Total Time Spent with Patient: Total time spent is greater than 50% in coordination of care (as documented) at patient's floor/unit and/or counseling patient: Coding Level of Care Code 75563 Subseq Hosp Care Lvl 2 Diagnoses DVT (deep venous thrombosis) I82.409 Acute renal failure N17.9 Perforated bowel K63.1 Colonic stricture K56.699 Malnutrition E46 Hypertension I10 Hypertension type: essential hypertension Atrial flutter I48.3 Atrial flutter type: typical Depression F32.9 Delirium R41.0 Oral candidiasis B37.0 (1) Hypertension Hypertension type: essential hypertension Qualified Code(s): I10 - Essential (primary) hypertension (2) Atrial flutter Atrial flutter type: typical Qualified Code(s): I48.3 - Typical atrial flutter
[2022-04-27] MEDS: MELATONIN 3 MG TAB PO SCH (20:19)
[2022-04-27] MEDS: ACETAMINOPHEN 325 MG TAB PO PRN (21:33)
[2022-04-28] MEDS: FIRST - Mouthwash BLM 119 ML PO SCH ×4 (04:00→21:16)
[2022-04-28] MEDS: OCTREOTIDE ACETATE 500 MCG in DEXTROSE 5% 100 ML IV SCH ×2 (06:20→17:58)
[2022-04-28 07:02] LABS: BUN Creatinine Ratio 9.2 (10-20); Calcium 7.8 mg/dl (8.5-10.1); Creatinine Clr Calc Pharmacy 35.2 ml/min; Est GFR (Non-African American) 43.2 ml/min; Potassium 3.9 mmol/L (3.5-5.1)
[2022-04-28] MEDS: METOPROLOL TARTRATE 50 MG TAB PO SCH ×2 (08:38→20:09)
[2022-04-28] MEDS: ALFUZOSIN HCL 10 MG TAB PO SCH (08:38)
[2022-04-28] MEDS: NYSTATIN SUSP 500,000 U/5 ML UDC PO SCH ×2 (08:38→12:12)
[2022-04-28] MEDS: APIXABAN 5 MG TABLET PO SCH ×2 (08:38→20:09)
--- NOTE | 2022-04-28 08:44 | Surgery Progress Note ---
Date of Service April 28, 2022 Assessment & Plan (1) Colonic stricture: Plan: POD 30/33 Cr. 1.4 (1.5), will d/c IVF Continue to encourage po intake PT/OT ostomy output decreasing with octreotide Appreciate hospitalists and farmer and grazier assistance with pt Okay from our standpoint for dispo when set up with case management f/u with Dr. Castro in 1-2 weeks and ENT as outpatient Admission and Anticipated Discharge Date Admission Date: March 26, 2022 Subjective Patient with no complaints. No abd pain, n/v. Tolerating diet. Physical Exam Physical Exam: awake Gastrointestinal (Abdomen): Inspection/Auscultation: + abdominal surgical incision (c/d/i); abdomen not distended Percussion/Palpation: abdomen soft; abdomen nontender + liquid stool in ostomy bag Results & Data ([facility]) Vital Signs (Past 12 Hours) Vital Signs Temp Pulse Pulse Pulse Resp BP Pulse Ox 04/28/22 08:12 36.8 C 74 18 170/73 H 97 04/28/22 03:00 36.5 C 63 18 175/66 H 94 04/27/22 23:00 36.4 C L 64 20 151/61 H 93 04/27/22 22:49 69 O2 Del Method 04/28/22 08:12 Room Air 04/28/22 03:00 Room Air 04/27/22 23:00 Room Air 04/27/22 22:49 PG Care Time/CCT Total # of Minutes Spent Total Time Spent with Patient: Total time spent is greater than 50% in coordination of care (as documented) at patient's floor/unit and/or counseling patient: Coding Level of Care Code None Diagnoses Colonic stricture K56.699
--- NOTE | 2022-04-28 17:02 | Hospitalist Progress Note ---
Date of Service April 28, 2022 Assessment & Plan (1) DVT (deep venous thrombosis): Plan: Acute DVT which is new this admission. on Apixaban DVT dosing (2) Acute renal failure: Plan: Improving, stop IV fluid and observe; if recurs then only option may be nightly fluids or something of that nature based on the construct of inability to keep up with ostomy output (3) Perforated bowel: Plan: S/p 03/29 for exp lap converted to laparotomy with repair of perforation and diverting ileostomy - VONNIE drains have been removed by surgery. -Ileostomy function is now normal. Tolerating regular diet At this time it is anticipated that he will go to [facility] (4) Colonic stricture: Plan: Status post laparoscopic colectomy and enterolysis by Dr. Castro on 03/26/2022 with interval development of perforated bowel on 03/29 (5) Malnutrition: Plan: Moderate malnutrition due to poor oral intake will supplement with Boost TID (6) Hypertension: Plan: Staying generous, resume home hydralazine (7) Atrial flutter: Plan: Patient has a history of atrial flutter managed by Dr. Flores at [facility] cardiology. On metoprolol and Apixaban (8) Depression: Plan: Continue Celexa (9) Delirium: Plan: Stable from this perspectivefollow (10) Oral candidiasis: Plan: Identified on physical examination 04/18/2022 Patient started on nystatin swish and swallow Continue to follow clinically Plan Patient was denied for acute rehab, even after peer to peer. Will likely go to SNF when accepted Admission and Anticipated Discharge Date Admission Date: March 26, 2022 Subjective Follow-up of acute kidney injury, medical management, recent DVTno new issues as such Physical Exam Physical Exam: Constitutional and general: no acute distress; looks biologic age Head and face: No puffiness, atraumatic Eyes: No scleral icterus, extraocular movements normal Neck: Supple, no JVD Musculoskeletal: No acute joint swelling, no bony abnormalities Skin/dermatologic/integument: No rash, no purpura Hematologic and lymphatic: pallor mild, no petechia Gastrointestinal/abdomen: distended, soft, nonacute Neurologic: Cranial nerves intact, nonfocal Cardiovascular: Heart rhythm regular, no rub, SSM, no gallop Respiratory: Chest movements equal, no use of accessory muscles, no adventitious sounds Results & Data Results & Data ([facility]) Vital Signs (Past 12 Hours) Vital Signs Temp Pulse Pulse Resp BP Pulse Ox O2 Del Method 04/28/22 16:00 36.9 C 71 18 170/71 H 94 Room Air 04/28/22 11:54 36.5 C 64 18 153/67 H 94 Room Air 04/28/22 10:41 Room Air 04/28/22 10:39 75 04/28/22 08:12 36.8 C 74 18 170/73 H 97 Room Air Laboratory Results Laboratory Results - last 24 hr 04/28/22 06:12 Sodium 139 Potassium 3.9 Chloride 112 H Carbon Dioxide 23 Anion Gap 4 BUN 13 Creatinine 1.42 H Est Cr Clr Drug Dosing 35.2 Est GFR ( Amer) 50.0 Est GFR (Non-Af Amer) 43.2 BUN/Creatinine Ratio 9.2 L Glucose 125 H Calcium 7.8 L PG Care Time/CCT Total # of Minutes Spent Total Time Spent with Patient: Total time spent is greater than 50% in coordination of care (as documented) at patient's floor/unit and/or counseling patient: Coding Level of Care Code 18397 Subseq Hosp Care Lvl 2 Diagnoses DVT (deep venous thrombosis) I82.409 Acute renal failure N17.9 Perforated bowel K63.1 Colonic stricture K56.699 Malnutrition E46 Hypertension I10 Hypertension type: essential hypertension Atrial flutter I48.3 Atrial flutter type: typical Depression F32.9 Delirium R41.0 Oral candidiasis B37.0 (1) Hypertension Hypertension type: essential hypertension Qualified Code(s): I10 - Essential (primary) hypertension (2) Atrial flutter Atrial flutter type: typical Qualified Code(s): I48.3 - Typical atrial flutter
[2022-04-28] MEDS: MELATONIN 3 MG TAB PO SCH (20:12)
[2022-04-28] MEDS: hydrALAZINE HCL 25 MG TAB PO SCH (21:17)
[2022-04-29] MEDS: FIRST - Mouthwash BLM 119 ML PO SCH ×2 (03:01→09:51)
[2022-04-29] MEDS: OCTREOTIDE ACETATE 500 MCG in DEXTROSE 5% 100 ML IV SCH (03:01)
[2022-04-29] MEDS: hydrALAZINE HCL 25 MG TAB PO SCH (05:55)
[2022-04-29 06:38] LABS: BUN Creatinine Ratio 6.6 (10-20); Calcium 7.9 mg/dl (8.5-10.1); Creatinine Clr Calc Pharmacy 35.6 ml/min; Est GFR (African American) 52.7 ml/min; Est GFR (Non-African American) 45.5 ml/min; Potassium 3.7 mmol/L (3.5-5.1)
[2022-04-29] MEDS ORDERED: ACETAMINOPHEN 325 MG TAB PO PRN (08:09)
--- NOTE | 2022-04-29 08:13 | Surgery Progress Note ---
Date of Service April 29, 2022 Assessment & Plan (1) History of colon resection: Plan: POD 31/32 Cr. 1.3 (1.4). IVF d/c'd yesterday Continue to encourage po intake, currently working on eating bfast Can utilize tylenol if needed for pain/headache PT/OT Appreciate hospitalists assistance with patient Okay from our standpoint for dispo when set up with case management, trav to [facility] today f/u with Dr. Castro in 1-2 weeks and ENT as outpatient Admission and Anticipated Discharge Date Admission Date: March 26, 2022 Subjective Patient says he is hungry. Also reports a headache and some mild belly pain. Non tender on exam. Slightly confused this AM. Physical Exam Physical Exam: awake, eating breakfast Gastrointestinal (Abdomen): Inspection/Auscultation: + abdominal surgical incision; abdomen not distended Percussion/Palpation: abdomen soft; abdomen nontender + liquid stool in ostomy bag Results & Data ([facility]) Vital Signs (Past 12 Hours) Vital Signs Temp Pulse Pulse Resp BP Pulse Ox O2 Del Method 04/29/22 07:29 Room Air 04/29/22 04:02 36.7 C 61 16 160/63 H 94 Room Air 04/28/22 23:30 75 04/28/22 22:37 37.0 C 70 16 150/69 H 93 Room Air 04/28/22 21:15 76 151/72 H PG Care Time/CCT Total # of Minutes Spent Total Time Spent with Patient: Total time spent is greater than 50% in coordination of care (as documented) at patient's floor/unit and/or counseling patient: Coding Level of Care Code None Diagnoses History of colon resection Z90.49
[2022-04-29] MEDS ORDERED: OCTREOTIDE ACETATE 100 MCG/ML VIAL SQ SCH (09:00)
[2022-04-29] MEDS: APIXABAN 5 MG TABLET PO SCH (09:51)
[2022-04-29] MEDS: METOPROLOL TARTRATE 50 MG TAB PO SCH (09:51)
[2022-04-29] MEDS: ALFUZOSIN HCL 10 MG TAB PO SCH (09:51)
--- NOTE | 2022-04-29 12:07 | Discharge Summary ---
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 anastomotic leak creation of ileostomy DVT Discharge Exam awake, slightly confused Gastrointestinal (Abdomen) Inspection/Auscultation: + abdominal surgical incision; abdomen not distended Percussion/Palpation: abdomen soft; abdomen nontender ileostomy viable, + liquid stool in bag Discharge Data Allergies Allergy/AdvReac Type Severity Reaction Status Date / Time Sulfa (Sulfonamide Allergy Intermediate Rash Verified 03/26/22 07:01 Antibiotics) vancomycin Allergy Intermediate LOWER Verified 03/26/22 07:01 EXTREMITY SWELLING, FEVER adhesive AdvReac Mild sKin Verified 03/26/22 07:01 tears-WITH TAPE gabapentin AdvReac Mild drowsy,conf Verified 03/26/22 07:01 used Consultations 03/26/22 16:08 Consult Hospitalist Routine 03/29/22 23:45 Consult Insurance Account Representative Routine 04/09/22 09:02 Consult Nephrology Routine Procedures Performed Operation Date: 03/26/22 08:45 Actual Procedures p Laparoscopic Sigmoid Colectomy with enterolysis (Not Applicable) - Honorio Castro DO Operation Date: 03/29/22 19:10 Actual Procedures p Laparotomy, Repair of Anastomic Perforation, Diverting Ileostomy, and Rigid Sigmoidoscopy(Not Applicable) - Honorio Castro DO s Diagnostic Laparoscopy Converted to (Not Applicable) - Honorio Castro DO Ordered Studies 03/29/22 18:22 CT abd pelvis wo con Stat 04/09/22 09:02 US renal/blad retro comp Urgent 04/15/22 10:43 US venous doppler LE BI Urgent 04/16/22 08:09 CT abd pelvis wo con Urgent Hospital Course (1) Stricture of sigmoid colon: This is an 89y M with a history of colonic stricture who presented to the [facility] on 03/26/22 for a scheduled laparoscopic sigmoid colectomy with Dr. Castro. The patient tolerated the procedure well, see op note for full details. The patient recovered in the PACU and was transferred to the surgical nursing floor in stable condition with a arroyo, VONNIE drain, and allowed sips/chips. The hospitalists were consulted to follow along with us for medical management throughout his hospitalization. POD#1 the patient was doing well and was started on clear liquids. He was monitored and transfused appropriately for post op anemia and IVF adjusted for VIMAL on CKD. Arroyo in place for I/Os. Once he began having BMs diet advanced to fulls. On POD#3 the patient developed acute onset abdominal pain, fevers, confusion, and change in vital signs. CT a/p was obtained that revealed pneumoperitoneum. He was taken back to the OR on 03/29 and was found to have an anastomotic leak. He underwent an exploratory laparotomy with repair of anastomotic leak and creation of diverting ileostomy. Post op the patient was transferred to the ICU intubated for close monitoring and resuscitation. He had an NGT, arroyo, and VONNIE drain x 2. Patient extubated on 03/30. He was then transferred to the PCU. Post operatively patient developed an ileus and was started on PPN for supplemental nutrition until he started having meaningful bowel function. Once the ostomy was functioning well he was transitioned from liquids to a low fiber diet. His ileostomy output did become higher than the patient was initially able to take in orally and he developed an VIMAL. Nephrology was consulted to follow along for help with fluid management. Oral intake continued to be encouraged throughout his hospitalization and he was ultimately started on octreotide to help manage ostomy output with success. By the time of discharge the patient's oral intake was improved as well as his kidney function. Post op course was also complicated by a LLE DVT of which he was on a heparin gtt for a few days until renal function improved enough for the patient to resume his Eliquis at a higher dosage. The patient did experience post op delirium requiring a 1:1 that was ultimately weaned off. ENT was curb- sided regarding voice hoarseness he developed after self extubating himself and it was recommended he follow up as an outpatient for possible laryngoscope. Speech and swallow cleared him for a diet. Wound care saw patient and performed ostomy teaching with family. VONNIE drain x2 remained serosanguineous and were eventually removed. The patient worked with PT/OT who initially recommended rehab. This was denied and insurance authorization was obtained for patient to go to SNF. Case management set up discharge to [facility] on 04/29 where he was discharged without event. He was tolerating a regular diet, ostomy functioning, and renal function improved. It was recommended he follow up with his PCP, lock tender chief operator, ENT, and general surgery all within short order of disposition. (2) History of colon resection: (3) Anastomotic leak of intestine: (4) DVT (deep venous thrombosis): Total Time Total Time Spent Total Time Spent (In Minutes): 25 Discharge Plan Discharge Items Patient Disposition: Transfer Long Term Fac Reason For Visit: Sigmoid Colon Stricture Discharge Diagnosis: sigmoid colon resection anastomotic leak creation of ileostomy Activity: Per Instructions section Lifting: No more than 25 pounds Bathing Comment: may shower; no soaking in tubs/pools Exercise/Sports: Wait until after follow-up appointment Non-emergency contact: Surgeon Call non-emergency contact if: you have any medication questions, your symptoms worsen, your pain is not controlled, your pain is worsening, your pain is concerning for you, you have a fever, your temperature is above 101.5, your wound has increased redness, your wound has increased drainage and your wound pain has increased Follow-up/Referrals: Sally Schaeffer CRNP [Primary Care Provider] - (Please follow up in clinic within 1 week) Krystina Campa MD [Physician] - (Seen in house, request in 1-2 weeks) Honorio Castro DO [Surgeon] - (please call to schedule follow up in clinic within 1-2 weeks) Cassidy Wood MD [Physician] - (Please call to schedule follow up with the ENT (ears/nose/throat) doctor to evaluate your hoarseness, they may use a scope in the office to look at your vocal cords) Diet: Low Fiber and Other - See Diet Comment Diet Comment: low fiber- minced and moist Addtl Attending Provider Instructions: Ileostomy Care: Clean skin with baby wash, rinse well, pat dry. use a 4" ostomy ring cut in a strip to fill in folds of pt's abdomen when he is sitting. Apply a 1 3/4" barrier and then attach a 1 3/4" pouch. As long as patient's output is liquid please feel free to use a 1 3/4" urostomy drainable pouch, if output is very high this could be attached to a night bag. Please follow up with the Ear, nose and throat physician (Dr. Wood) as an outpatient for evaluation of your hoarseness. Please follow up with your Insurance Account Representative within 1-2 weeks of discharge. You have been diagnosed with a blood clot in your legs, therefore your Eliquis dose was increased. In addition, your blood pressure medications have been adjusted or held as you had some kidney injury during your hospitalization. Please also follow up with your PCP within 1 week to discuss the results of your hospitalization. You have been started on Octreotide for high ostomy output. The facility may titrate the dosage as needed You should get your blood work drawn twice weekly for a BMP to check on your kidney levels and creatinine. Pending Studies at Discharge: No Stand-Alone Forms: My [facility] Skilled Items Patient informed of condition?: Yes DNR: No Discharge Level of Care: Skilled Communicable Disease: No Discharge Prognosis: Stable Lines: None Urinary Catheter: No Medications and DC Order Prescriptions: New nystatin 100,000 unit/mL Suspension 5 ml PO QID Qty: 60 0RF nystatin [Nystop] 100,000 unit/gram Powder 1 applic EXT BID PRN (Reason: yeast infection) Qty: 15 0RF melatonin 3 mg Tablet 6 mg PO HS Qty: 30 0RF octreotide acetate [Sandostatin] 50 mcg/mL solution 50 mcg subcut BID Qty: 25 0RF Rx Instructions: administer 30 minutes before morning and evening meals metoprolol tartrate 50 mg Tablet 50 mg PO BID Qty: 60 0RF First - Mouthwash Blm [Magic Mouthwash] mouthwash 5 ml PO Q6H Qty: 120 0RF Continued tramadol 50 mg tablet 25 - 50 mg PO UD PRN (Reason: pain) Qty: 30 0RF Rx Instructions: 1/2 to 1 tab as needed for neck pain PDMP searched, last filled on 02/05/22 for 30 days, DNFB 03/06/22 hydralazine 25 mg tablet 25 mg PO TID Saccharomyces boulardii [Florastor] 250 mg capsule 250 mg PO QAM pantoprazole 40 mg tablet,delayed release (DR/EC) 40 mg PO BID Qty: 180 3RF lidocaine 5 % adhesive patch,medicated 1 patch transdermal UD PRN (Reason: Pain) cranberry 500 mg capsule 1,000 mg PO QAM aspirin 81 mg Tablet,Delayed Release (Dr/Ec) 81 mg PO QAM Qty: 30 0RF Rx Instructions: OTC acetaminophen 500 mg capsule 1,000 mg PO TID alfuzosin 10 mg tablet extended release 24 hr 10 mg PO QPM Rx Instructions: administer after the same meal each day azelastine 205.5 mcg (0.15 %) [place],Non-Aerosol 2 spray INTRANASAL UD PRN (Reason: Nasal Congestion) meclizine 25 mg tablet 25 mg PO UD PRN (Reason: dizziness) citalopram [Celexa] 40 mg tablet 40 mg PO QAM donepezil [Aricept] 23 mg tablet 23 mg PO HS Changed Eliquis 2.5 mg tablet 5 mg PO BID Qty: 0 0RF Discontinued lisinopril 10 mg tablet 20 mg PO BID metoprolol succinate 25 mg tablet extended release 24 hr 25 mg PO QAM Discharge Orders: Discharge Order (Routine); Ordered 04/29/22 Ordered By: Bhakti Coyle/Other Patient Handouts: Ileostomy Food Blockage, Ileostomy: Nutritional Management Admission Data Admit Date/Time: 03/26/22 12:19 Attending Provider: Honorio Castro Admit Provider: Honorio Castro Primary Care Provider: Sally Schaeffer Other Providers: Liam Sandra ; Renetta Shah ; Ross Archibald ; Fredy Cruz ; Krystina Campa ; Bishnu Vo ; Fredy Masters ; Vijaya Cheatham ; [place], Other Interventions: Discharge Summary Assessment (RN) Last Done: 04/29/22 11:25 Coding Level of Care Code D/C DAY MANAGEMENT <30 MINS Diagnoses Stricture of sigmoid colon K56.699 History of colon resection Z90.49 Anastomotic leak of intestine K91.89 DVT (deep venous thrombosis) I82.409
== END 2022-04-29 11:26 | DRG 329 ==
LOC: ASU 06:36 → SUATTDRO 12:19 → 3N 12:19 → 1E 03-29 23:30 → 2S 03-31 12:01